=== PATIENT | male | born 1960 | race African-American/Black ===

== ENCOUNTER 2017-03-08 16:21 | Inpatient (IN) ==
--- NOTE | 2017-03-08 16:55 | PROVIDER DOCUMENTATION ---
HPI-Rash/Wound/ReCheck - General Chief Complaint: Abscess Stated Complaint: poss abscess Time Seen by Provider: 03/08/17 16:46 Source: patient, family Allergies/Adverse Reactions: Allergies Allergy/AdvReac Type Severity Reaction Status Date / Time No Known Allergies Allergy Verified 03/08/17 16:47 Home Medications: Home Medication List Medication Instructions Recorded Confirmed Last Taken Type Naproxen 500 mg PO BID PRN #60 tablet 04/29/15 03/08/17 Unknown Rx Cyclobenzaprine [Flexeril] 10 mg PO TID PRN PRN #20 tablet 02/26/17 03/08/17 07:00 Rx Adalimumab [Humira Pen] 40 mg IM DIRECTED 02/28/17 03/08/17 02/20/17 15:00 History Allopurinol [Allopurinol] 100 mg PO DAILY 02/28/17 03/08/17 02/28/17 07:00 History Clonidine HCl [Clonidine HCl] 0.1 mg PO DAILY 02/28/17 03/08/17 02/28/17 07:00 History Famotidine [Pepcid] 20 mg PO DAILY #20 tablet 02/28/17 03/08/17 Unknown Rx Gabapentin [Gabapentin] 300 mg PO HS 02/28/17 03/08/17 02/27/17 20:00 History Lisinopril/Hydrochlorothiazide 1 tab PO DAILY 02/28/17 03/08/17 02/28/17 07:00 History [Lisinopril-Hctz 20-25 mg Tab] Methocarbamol [Robaxin] 500 mg PO BID #30 tablet 02/28/17 03/08/17 Unknown Rx Oxycodone HCl/Acetaminophen 1 each PO TID 02/28/17 03/08/17 02/28/17 12:00 History [Oxycodone-Acetaminophen 10-325] - History of Present Illness-Dermatology Nature of Presenting Problem: 56 year old AAM presents with shortness of breath, weakness and mass to left upper chest, lateral to the sternum and just distal to the clavicle. pt has been evaluted for same twice in the last week. pt reported on initial visit he dropped the garage door on his chest, scond visit he reports a lawn telecommunicator fell on his chest. pt was instructed to follow up with PMD/surgery and has no done so. pt presents with nieces who help care for him. they report he is unsteady o ghis feet, has not been eating, losing weight and today they noticed his eyes are yellow. pt reports the shortness of breath has been going on for 1 week along with the weakness and development of this mass on his left anterior chest. pt has increased respiratory rate at 24 during H&P, appears dry, lips cracked. pt has psoriasis to hands, feet, knee and wrists. additionally pt reports swelling to the LLE, greater than the right. pt is slow to respond to questions. Location: reports: chest Quality: reports: painful Severity: reports: mild Onset/Duration: reports: 1 week ago Timing: reports: still present, constant, getting worse Context/Associated Symptoms: reports: unknown bite/sting, tender area, other ( trauma) Identifiable cause?: No Exposure: reports: unknown cause Similar Symptoms Previously?: Yes Recently seen or treated by another doctor?: Yes Review of Systems - Adult - REVIEW OF SYSTEMS - ADULT Constitutional: reports: see HPI, fatique Eyes: reports: no symptoms reported, other (jaundice) Ears, Nose, Mouth & Throat: reports: no symptoms reported. denies: ear discharge, ear pain, nose pain, loose teeth, throat pain, throat swelling Cardiovascular: reports: no symptoms reported. denies: chest pain, palpitations , syncope Respiratory: reports: see HPI, dyspnea on exertion, shortness of breath. denies : chronic cough, cough Gastrointestinal: reports: see HPI, poor appetite. denies: abdominal pain, diarrhea, nausea, vomiting Genitourinary: reports: no symptoms reported. denies: dysuria, hematuria, urgency Musculoskeletal: reports: no symptoms reported. denies: bone pain, joint pain, joint swelling, neck pain Integumentary: reports: see HPI, skin sores/ulcer. denies: hives, itching Neurological: reports: no symptoms reported. denies: ataxia, dizziness/vertigo Psychiatric: reports: no symptoms reported Endocrine: reports: no symptoms reported Hematologic/Lymphatic: reports: no symptoms reported Allergic/Immunologic: reports: no symptoms reported All Other Systems: Reviewed and Negative Past History - Adult - PAST MEDICAL HISTORY-ADULT Review of Records: reports: Old Records Reviewed, Nursing Assessment Review, Medications Reviewed, Social history reviewed & non-contributory. Major Childhood Illnesses: reports: denies history Cardiovascular: reports: HTN Respiratory: reports: asthma Gastrointestinal: reports: other (HEP C) Obstetrical/Gynecological: reports: denies history Genitourinary: reports: denies history Musculoskeletal: reports: chronic pain Neurological: reports: denies history Endocrine/Immune: reports: denies history Other Conditions: reports: denies history - IMMUNIZATION STATUS Childhood Immunizations: See Nurse Assessment Flu Vaccine: See Nurse Assessment - FAMILY HISTORY Family History: reviewed, not pertinent - SOCIAL HISTORY Smoking: cigarettes Provider spent 3-5 mins advising pt. on dangers of tobacco.: Discussed manners to quit use, and f/u contacts for add'l counseling. Substance Use: none presently/history of abuse Alcohol Use Frequency: sober (former use) Physical Exam-General - PHYSICAL EXAM-ADULT Initial Vital Signs Reviewed: Yes - CONSTITUTIONAL General Appearance: appears well, alert, mild distress, cachetic, thin, lethargic, slow to respond. negative: no apparent distress, moderate distress - EYES Eyes: pale conjunctivae, scleral icterus - HEAD, EARS, NOSE, MOUTH & THROAT HENMT: normocephalic/atraumatic, moist mucous membranes, normal ENT inspection, TMs normal, other (dry lips, tongue, furroughed mouth). negative: pharynx normal - NECK Neck: non-tender, full range of motion, supple, normal inspection. negative: C- spine tenderness, limited range of motion, meningismus, tender lateral, tender midline - RESPIRATORY Respiratory: chest non-tender, lungs clear, normal breath sounds, no pleuratic chest pain, no respiratory distress, no accessory muscle use, increased rate. negative: respiratory distress, decreased breath sounds, accessory muscle use, crackles, rales, rhonchi, stridor, wheezing - CARDIOVASCULAR Cardiovascular: normal peripheral pulses, regular rate, rhythm, tachycardia. negative: diastolic murmur, systolic murmur - CHEST (BREASTS) Chest/Breast: mass/lump noted (6cm by 6cm raised area of erythema; non-pulsatile ; tender to palpation.) - GASTROINTESTINAL (ABDOMEN) Abdominal Exam: normal bowel sounds, non tender, soft. negative: distended, guarding, rigid, tenderness, hepatomegaly, spleenomegaly - LYMPHATIC Lymphatic: no adenopathy - MUSCULOSKELETAL Back Exam: normal inspection, no CVA tenderness, no vertebral tenderness. negative: CVA tenderness, decreased range of motion, swelling, vertebral tenderness Extremity: normal range of motion, normal gait, pelvis stable, calf tenderness, erythema, inflammation, pedal edema (left greater than right), swelling, tenderness. negative: non-tender, normal inspection, no calf tenderness, abnormal NV exam, pulse deficit Peripheral Pulses: radial (R): 2+, radial (L): 2+, 3+, dorsalis-pedis (R): 1+, dorsalis-pedis (L): 1+ - SKIN Integumentary: warm/dry, jaundice, rash, swelling, tenderness, other (psoriatic rash to feet, hands, knees, large silver colored plaques) - NEUROLOGIC Neurologic: grossly normal, no motor/sensory deficits - PSYCHIATRIC Psych/Mental Status: normal mood/affect, normal thought content, normal thought process, oriented x 3, disheveled Progress - PLAN OF CARE/RESULTS Progress/Plan/Lab Results: Vital Signs - 8 hr 03/08/17 16:24 Temperature 98.0 F Pulse Rate 111 H Respiratory Rate 20 Blood Pressure 115/66 O2 Sat by Pulse Oximetry 98 Laboratory Results - last 24 hr 03/08/17 03/08/17 03/08/17 17:00 17:00 17:00 WBC 20.67 H RBC 4.40 L Hgb 13.9 L Hct 37.6 L MCV 85.5 MCH 31.6 H MCHC 37.0 RDW Std Deviation 14.3 Plt Count 113 L MPV 10.8 H Immature Gran % (Auto) 1.0 H Neut % (Auto) 78.9 H Lymph % (Auto) 11.0 L [place] % (Auto) 8.4 Eos % (Auto) 0.2 Baso % (Auto) 0.5 Immature Gran # (Auto) 0.21 H Neut # (Auto) 16.31 H Lymph # (Auto) 2.28 [place] # (Auto) 1.73 H Eos # (Auto) 0.04 Baso # (Auto) 0.10 PT INR PTT (Actin FS) D-Dimer Sodium 136 Potassium 6.1 H* Chloride 101 Carbon Dioxide 18 L Anion Gap 17 BUN 106 H Creatinine 4.7 H Estimated GFR/1.73 m2 16 BUN/Creatinine Ratio 23 Glucose 67 L Calculated Osmolality 304 Calcium 8.7 L Total Bilirubin 16.94 H AST 213 H ALT 75 H Alkaline Phosphatase 215 H Ammonia Creatine Kinase 87 Troponin T Vvd-J-Deqstombncl Pept Total Protein 8.2 Albumin 2.2 L Globulin 6.0 Albumin/Globulin Ratio 0.4 Plasma Lactate Plasma/Serum Ethyl Alc 03/08/17 03/08/17 03/08/17 17:00 17:00 17:00 WBC RBC Hgb Hct MCV MCH MCHC RDW Std Deviation Plt Count MPV Immature Gran % (Auto) Neut % (Auto) Lymph % (Auto) [place] % (Auto) Eos % (Auto) Baso % (Auto) Immature Gran # (Auto) Neut # (Auto) Lymph # (Auto) [place] # (Auto) Eos # (Auto) Baso # (Auto) PT 15.4 H INR 1.43 PTT (Actin FS) 43.6 H D-Dimer Sodium Potassium Chloride Carbon Dioxide Anion Gap BUN Creatinine Estimated GFR/1.73 m2 BUN/Creatinine Ratio Glucose Calculated Osmolality Calcium Total Bilirubin AST ALT Alkaline Phosphatase Ammonia Creatine Kinase Troponin T 0.020 Quf-Z-Pzvskbtvyev Pept Total Protein Albumin Globulin Albumin/Globulin Ratio Plasma Lactate 3.3 H Plasma/Serum Ethyl Alc 03/08/17 03/08/17 03/08/17 17:00 17:00 17:00 WBC RBC Hgb Hct MCV MCH MCHC RDW Std Deviation Plt Count MPV Immature Gran % (Auto) Neut % (Auto) Lymph % (Auto) [place] % (Auto) Eos % (Auto) Baso % (Auto) Immature Gran # (Auto) Neut # (Auto) Lymph # (Auto) [place] # (Auto) Eos # (Auto) Baso # (Auto) PT INR PTT (Actin FS) D-Dimer 7.23 H Sodium Potassium Chloride Carbon Dioxide Anion Gap BUN Creatinine Estimated GFR/1.73 m2 BUN/Creatinine Ratio Glucose Calculated Osmolality Calcium Total Bilirubin AST ALT Alkaline Phosphatase Ammonia 85 H Creatine Kinase Troponin T Nqf-Z-Nhkqhbyzldb Pept 514 H Total Protein Albumin Globulin Albumin/Globulin Ratio Plasma Lactate Plasma/Serum Ethyl Alc Orders Category Date Time Status Cardiac Monitoring DIRECTED Care 03/08/17 17:00 Active FSBS [Finger Stick Blood Sugar (ED)] DIRECTED Care 03/08/17 19:00 Active Finger Stick Blood Sugar (ED) DIRECTED Care 03/08/17 17:00 Active Saline Loc NOW Care 03/08/17 17:00 Active Saline Loc NOW Care 03/08/17 17:[address] THORAX W/O CONTRAST [CT] Stat Exams 03/08/17 18:15 Completed FLAT/UPRIGHT ABD/1 VIEW CHEST [RAD] Stat Exams 03/08/17 17:02 Completed HEAD W/O CONTRAST [CT] Stat Exams 03/08/17 17:02 Completed NECK W/O CONTRAST [CT] Stat Exams 03/08/17 18:15 Completed ALCOHOL BLOOD Stat Lab 03/08/17 17:00 Completed AMMONIA [CHEM] Stat Lab 03/08/17 17:00 Completed BLOOD CULTURE [BLDCUL] Stat Lab 03/08/17 17:25 Results BNP [PRO B-NATRIURETIC PEPTIDE] Stat Lab 03/08/17 17:00 Completed CBC WITH ELECTRONIC DIFF [HEME] Stat Lab 03/08/17 17:00 Completed CK PROFILE [SP CHEM] Stat Lab 03/08/17 17:00 Completed COMPREHENSIVE METABOLIC PANEL [CHEM] Stat Lab 03/08/17 17:00 Completed Chem7 [BASIC METABOLIC PANEL] [CHEM] Stat Lab 03/08/17 19:05 Ordered D-DIMER [CHEM] Stat Lab 03/08/17 17:00 Completed LACTATE, PLASMA [CHEM] Stat Lab 03/08/17 17:00 Completed PROTIME WITH INR [COAG] Stat Lab 03/08/17 17:00 Completed PTT [COAG] Stat Lab 03/08/17 17:00 Completed TROPONIN T Stat Lab 03/08/17 17:00 Completed URINALYSIS W/POSS RFLX CULT-1 [URINALYSIS] Stat Lab 03/08/17 17:00 Uncollected URINE DRUG SCREEN Stat Lab 03/08/17 17:00 Uncollected 0.9% Sodium Chloride Inj [Ns] 1,000 ml Med 03/08/17 17:56 Discontinued IV 999 mls/hr Dextrose 50% Syringe [D50w Syringe] Med 03/08/17 18:29 Discontinued 50 ml IV NOW ONE Dextrose 50% Syringe [D50w Syringe] Med 03/08/17 19:32 Discontinued 50 ml IV NOW ONE Insulin Human Regular [Humulin R] Med 03/08/17 18:29 Discontinued 10 unit IV NOW ONE Piperacil/Tazobact 3.375 gm/Ns [Zosyn 3.375 gm/Ns] Med 03/08/17 18:19 Discontinued 3.375 gm in 50 ml IV NOW Sodium Polystyrene [Kayexalate] Med 03/08/17 18:28 Discontinued 30 gm CA NOW ONE Vancomycin 1 gm/Ns Med 03/08/17 18:19 Discontinued 1 gm in 250 ml IV NOW Pulse Oximetry Stat Oth 03/08/17 17:00 Active EKG [EKG] Stat Ther 03/08/17 17:00 Ordered Reviewed H&P, labs with Dr. Herrera, agrees with plan of care treatment/ admission. Laboratory Tests 03/08/17 03/08/17 03/08/17 17:00 17:00 17:00 WBC 20.67 H RBC 4.40 L Hgb 13.9 L Hct 37.6 L MCV 85.5 MCH 31.6 H MCHC 37.0 RDW Std Deviation 14.3 Plt Count 113 L MPV 10.8 H Immature Gran % (Auto) 1.0 H Neut % (Auto) 78.9 H Lymph % (Auto) 11.0 L [place] % (Auto) 8.4 Eos % (Auto) 0.2 Baso % (Auto) 0.5 Immature Gran # (Auto) 0.21 H Neut # (Auto) 16.31 H Lymph # (Auto) 2.28 [place] # (Auto) 1.73 H Eos # (Auto) 0.04 Baso # (Auto) 0.10 PT INR PTT (Actin FS) D-Dimer Sodium 136 Potassium 6.1 H* Chloride 101 Carbon Dioxide 18 L Anion Gap 17 BUN 106 H Creatinine 4.7 H Estimated GFR/1.73 m2 16 BUN/Creatinine Ratio 23 Glucose 67 L Calculated Osmolality 304 Calcium 8.7 L Total Bilirubin 16.94 H AST 213 H ALT 75 H Alkaline Phosphatase 215 H Ammonia Creatine Kinase 87 Troponin T Rne-H-Alszebuagyn Pept Total Protein 8.2 Albumin 2.2 L Globulin 6.0 Albumin/Globulin Ratio 0.4 Plasma Lactate Plasma/Serum Ethyl Alc 03/08/17 03/08/17 03/08/17 17:00 17:00 17:00 WBC RBC Hgb Hct MCV MCH MCHC RDW Std Deviation Plt Count MPV Immature Gran % (Auto) Neut % (Auto) Lymph % (Auto) [place] % (Auto) Eos % (Auto) Baso % (Auto) Immature Gran # (Auto) Neut # (Auto) Lymph # (Auto) [place] # (Auto) Eos # (Auto) Baso # (Auto) PT 15.4 H INR 1.43 PTT (Actin FS) 43.6 H D-Dimer Sodium Potassium Chloride Carbon Dioxide Anion Gap BUN Creatinine Estimated GFR/1.73 m2 BUN/Creatinine Ratio Glucose Calculated Osmolality Calcium Total Bilirubin AST ALT Alkaline Phosphatase Ammonia Creatine Kinase Troponin T 0.020 Ahf-Y-Isxnwvzkxjz Pept Total Protein Albumin Globulin Albumin/Globulin Ratio Plasma Lactate 3.3 H Plasma/Serum Ethyl Alc 03/08/17 03/08/17 03/08/17 17:00 17:00 17:00 WBC RBC Hgb Hct MCV MCH MCHC RDW Std Deviation Plt Count MPV Immature Gran % (Auto) Neut % (Auto) Lymph % (Auto) [place] % (Auto) Eos % (Auto) Baso % (Auto) Immature Gran # (Auto) Neut # (Auto) Lymph # (Auto) [place] # (Auto) Eos # (Auto) Baso # (Auto) PT INR PTT (Actin FS) D-Dimer 7.23 H Sodium Potassium Chloride Carbon Dioxide Anion Gap BUN Creatinine Estimated GFR/1.73 m2 BUN/Creatinine Ratio Glucose Calculated Osmolality Calcium Total Bilirubin AST ALT Alkaline Phosphatase Ammonia 85 H Creatine Kinase Troponin T Xxk-T-Buzfhqbnirt Pept 514 H Total Protein Albumin Globulin Albumin/Globulin Ratio Plasma Lactate Plasma/Serum Ethyl Alc Orders Category Date Time Status Cardiac Monitoring DIRECTED Care 03/08/17 17:00 Active FSBS [Finger Stick Blood Sugar (ED)] DIRECTED Care 03/08/17 19:00 Active Finger Stick Blood Sugar (ED) DIRECTED Care 03/08/17 17:00 Active Saline Loc NOW Care 03/08/17 17:00 Active Saline Loc NOW Care 03/08/17 17:[address] THORAX W/O CONTRAST [CT] Stat Exams 03/08/17 18:15 Completed FLAT/UPRIGHT ABD/1 VIEW CHEST [RAD] Stat Exams 03/08/17 17:02 Completed HEAD W/O CONTRAST [CT] Stat Exams 03/08/17 17:02 Completed NECK W/O CONTRAST [CT] Stat Exams 03/08/17 18:15 Completed ALCOHOL BLOOD Stat Lab 03/08/17 17:00 Completed AMMONIA [CHEM] Stat Lab 03/08/17 17:00 Completed BLOOD CULTURE [BLDCUL] Stat Lab 03/08/17 17:25 Results BNP [PRO B-NATRIURETIC PEPTIDE] Stat Lab 03/08/17 17:00 Completed CBC WITH ELECTRONIC DIFF [HEME] Stat Lab 03/08/17 17:00 Completed CK PROFILE [SP CHEM] Stat Lab 03/08/17 17:00 Completed COMPREHENSIVE METABOLIC PANEL [CHEM] Stat Lab 03/08/17 17:00 Completed Chem7 [BASIC METABOLIC PANEL] [CHEM] Stat Lab 03/08/17 19:00 Uncollected D-DIMER [CHEM] Stat Lab 03/08/17 17:00 Completed LACTATE, PLASMA [CHEM] Stat Lab 03/08/17 17:00 Completed PROTIME WITH INR [COAG] Stat Lab 03/08/17 17:00 Completed PTT [COAG] Stat Lab 03/08/17 17:00 Completed TROPONIN T Stat Lab 03/08/17 17:00 Completed URINALYSIS W/POSS RFLX CULT-1 [URINALYSIS] Stat Lab 03/08/17 17:00 Uncollected URINE DRUG SCREEN Stat Lab 03/08/17 17:00 Uncollected 0.9% Sodium Chloride Inj [Ns] 1,000 ml Med 03/08/17 17:56 Discontinued IV 999 mls/hr Dextrose 50% Syringe [D50w Syringe] Med 03/08/17 18:29 Discontinued 50 ml IV NOW ONE Insulin Human Regular [Humulin R] Med 03/08/17 18:29 Discontinued 10 unit IV NOW ONE Piperacil/Tazobact 3.375 gm/Ns [Zosyn 3.375 gm/Ns] Med 03/08/17 18:19 Discontinued 3.375 gm in 50 ml IV NOW Sodium Polystyrene [Kayexalate] Med 03/08/17 18:28 Discontinued 30 gm CA NOW ONE Vancomycin 1 gm/Ns Med 03/08/17 18:19 Active 1 gm in 250 ml IV NOW Pulse Oximetry Stat Oth 03/08/17 17:00 Active EKG [EKG] Stat Ther 03/08/17 17:00 Ordered Vital Signs - 24 hr 03/08/17 16:24 Temperature 98.0 F Pulse Rate 111 H Respiratory Rate 20 Blood Pressure 115/66 O2 Sat by Pulse Oximetry 98 Reviewed radiology, labs, H&P with Dr. Herrera, agrees with plan of care, treatment, admission. Result Diagrams: 03/08/17 17:00 03/08/17 17:00 - XRAY 1 XRAY Study: Chest, Abdomen Impression: Abnormal (GAstric outlet obstruction or gastroparesis. per Dr. Hurley) - CT/MRI 1 CT Study: Head Impression: Abnormal (minimicrovascular white mater change. no evidence of acute disease. per Dr. Hurley) 2 CT Study: Thorax Impression: Abnormal (left supraclavicular mass with internalk gas bubbles, The differential diagnosis would include a suncutaneous abscess, suppurating node, or nectrotic neoplasm.) 3 CT Study: Neck Impression: Normal (no significant abnormality in the neck. per Dr. Hurley) - CONSULTS/PCP/HOSPITALIST Notification #1 *Consult/PCP/Hospitalist*: Dr. Lucio Time Discussed: 18:55 Reason/Comments: accepted pt, will have the hourly shift see patient Consult Disposition: Will see in ED, Admit #2 Consult: Dr. Joaquin Time Discussed: 19:07 Consult Disposition: other (will evaluate pt in the ICU.) #3 Consult: Dr. Orozco Time Discussed: 19:38 (at bedside) Departure - Departure Date of Disposition Decision: 03/08/17 Time of Disposition Decision: 18:30 DIAGNOSIS: Abscess, Hyperkalemia Sepsis Qualifiers: Sepsis type: sepsis due to unspecified organism Qualified Code(s): A41.9 - Sepsis, unspecified organism ARF (acute renal failure) Qualifiers: Acute renal failure type: unspecified Qualified Code(s): N17.9 - Acute kidney failure, unspecified Disposition: ADMITTED INPATIENT 09 Certified Medical Emergency: Emergent Condition: Stable Referrals and Follow-Ups: Tyrell Dang MD [Primary Care Provider] - - Critical Care Note This patient required my direct & personal management of CC.: No Attestation - Physician/ MARIAM Attestation Patient care was provided by Advanced Practice Provider:: Yes Advanced Practice Provider:: Dc Curran Advanced Practice Provider documentation review:: The Mid-level provider documentation, treatment plan and medical decision making was reviewed by the physician who agrees with all treatment and medical decision making by the MLP.
[2017-03-08 17:40] LABS: BASO% 0.5 % (0.0-0.8); EOS# 0.04 X1000 (0.0-0.7); EOS% 0.2 % (0.0-10.0); HEMATOCRIT 37.6 % (42.0-52.0); HEMOGLOBIN 13.9 g/dL (14.0-18.0); IMM GRAN# 0.21 X1000 (0.0-0.04); LYMPH# 2.28 X1000 (1.2-3.4); MANUAL DIFF NEEDED? NO; MCH 31.6 PG (27-31); MCV 85.5 FL (81-99); MONO# 1.73 X1000 (0.11-0.59); MONO% 8.4 % (1.7-9.3); MPV 10.8 FL (7.4-10.4); NEUT% 78.9 % (42.2-75.2); PLT 113 X1000 (130-400)
[2017-03-08 17:44] LABS: INR 1.43; PROTIME 15.4 Seconds (9.2-11.7)
[2017-03-08 17:48] LABS: PTT 43.6 Seconds (22.0-36.0)
[2017-03-08] MEDS ORDERED: NS 1,000 ML IV ONE (17:56)
[2017-03-08 18:13] LABS: ALBUMIN 2.2 g/dL (3.5-5.0); CALCIUM 8.7 mg/dL (8.8-10.2); TOTAL BILIRUBIN 16.94 mg/dL (0.20-1.00); TOTAL PROTEIN 8.2 g/dL (6.3-8.3)
[2017-03-08 18:14] LABS: POTASSIUM 6.1 mmol/L (3.5-5.1)
[2017-03-08] MEDS ORDERED: ZOSYN 3.375 GM/NS 3.375 GM/50 ML IVPB IV ONE (18:19)
[2017-03-08] MEDS ORDERED: VANCOMYCIN 1 GM/NS 1 GM/250 ML IVPB IV ONE (18:19)
--- NOTE | 2017-03-08 18:25 | Diag Imaging Result Doc PS360 ---
EXAM: HEAD W/O CONTRAST HISTORY: confusion TECHNIQUE: CT of the head without contrast with dose reduction (clarity.) COMMENT: There is no evidence of mass effect bleed or abnormal extra-axial fluid collection. There is minimal subcortical white matter lucency in the left parietal convexity. There are no previous studies available for comparison. The calvarium is intact. IMPRESSION: Minimal microvascular white matter change. No evidence of acute disease. Electronically signed by Triston Hurley 03/08/2017 6:23 PM
[2017-03-08] MEDS ORDERED: KAYEXALATE PR ONE (18:28)
[2017-03-08] MEDS ORDERED: D50W SYRINGE IV ONE ×2 (18:29→19:32)
[2017-03-08] MEDS ORDERED: HUMULIN R IV ONE (18:29)
--- NOTE | 2017-03-08 18:37 | Diag Imaging Result Doc PS360 ---
EXAM: FLAT/UPRIGHT ABD/1 VIEW CHEST HISTORY: shortness of breath TECHNIQUE: AP upright chest and flat and upright abdomen three views COMMENT: The stomach is distended with retained food and fluid. The small bowel and colon are not particularly distended although there is some gas in the ascending colon. There is no evidence of organomegaly or mass otherwise. CHEST: The inspiration is markedly suboptimal. Considering this, there is probably no acute abnormality although the study is really nondiagnostic. IMPRESSION: Gastric outlet obstruction or gastroparesis. Electronically signed by Triston Hurley 03/08/2017 6:35 PM
--- NOTE | 2017-03-08 18:44 | Diag Imaging Result Doc PS360 ---
EXAM: NECK W/O CONTRAST HISTORY: Mass on L clavicle, renal failure, septic TECHNIQUE: CT of the neck without contrast COMMENT: The patient is rotated to the left. The nasopharynx is unremarkable in appearance. There is no evidence of significant adenopathy. The salivary glands are symmetrical in appearance. The oropharynx and hypopharynx are unremarkable. The epiglottis is not enlarged. The larynx is within normal limits. IMPRESSION: No significant abnormality in the neck. Electronically signed by Triston Hurley 03/08/2017 6:41 PM
--- NOTE | 2017-03-08 18:48 | Diag Imaging Result Doc PS360 ---
EXAM: CT THORAX W/O CONTRAST HISTORY: mass on L clavicle, renal failure, septic TECHNIQUE: CT of the chest without contrast with dose reduction (clarity.) COMMENT: There is a subcutaneous mass present below the level of the thyroid gland in the left supraclavicular or periclavicular region. This extends from about level of image 18 two the sternoclavicular joint on the left. Some air bubbles are seen within this abnormality. It measures 4.8 cm in transverse dimension. There is some fluid in the esophagus. There is no evidence of significant hilar or mediastinal adenopathy. There is a tiny right pleural effusion. There is some emphysematous change in the right apex. There is no evidence of focal pulmonary opacity. There are calcifications in the spleen. No definite erosions are present in the distal left clavicle or manubrium however the possibility of of involvement of the joint space by infection cannot be entirely excluded. IMPRESSION: Left supraclavicular mass with internal gas bubbles. The differential diagnosis would include a subcutaneous abscess, suppurating node, or necrotic neoplasm. Electronically signed by Triston Hurley 03/08/2017 6:46 PM
[2017-03-08 20:30] LABS: URINE MICRO REVIEW NEEDED? NO; URINE SOURCE CATH
[2017-03-08 20:35] LABS: BILIRUBIN URINE MODERATE (NEGATIVE); BLOOD URINE SMALL (NEGATIVE); COLOR YELLOW; GLUCOSE URINE NEGATIVE (NEGATIVE); LEUKOCYTES URINE NEGATIVE (NEGATIVE); NITRITE URINE POSITIVE (NEGATIVE); PROTEIN URINE TRACE mg/dL (NEGATIVE); SP GRAVITY URINE 1.016; TURBIDITY URINE HAZY (CLEAR); UR EPITHELIAL CELLS <10 /HPF (<10); URINE BACTERIA 4+ /HPF; URINE CULTURE NEEDED? YES; URINE RBC 20-40 /HPF (<10); URINE WBC <10 /HPF (<10); UROBILINOGEN URINE 2 mg/dL (NORMAL)
[2017-03-08 20:58] LABS: UR AMPHETAMINES QUAL NONE DETECTED (NONE DETECT); UR BARBITUATES QUAL NONE DETECTED (NONE DETECT); UR BENZODIAZEPIN QUAL NONE DETECTED (NONE DETECT); UR CANNABINOIDS QUAL NONE DETECTED (NONE DETECT); UR COCAINE QUAL NONE DETECTED (NONE DETECT); UR METHADONE QUAL NONE DETECTED (NONE DETECT); UR OPIATES QUAL NONE DETECTED (NONE DETECT); UR OXYCODONE QUAL PRESUMPTIVE POSITIVE (NONE DETECT); UR PCP QUAL NONE DETECTED (NONE DETECT)
[2017-03-08] MEDS ORDERED: ZOFRAN IV PRN (22:28)
[2017-03-08] MEDS ORDERED: PERCOCET-10 PO PRN (22:28)
[2017-03-08] MEDS ORDERED: NS 1,000 ML IV SCH (22:28)
[2017-03-08] MEDS ORDERED: VANCOMYCIN IV PER PHARMACY MISC SCH (22:28)
[2017-03-08 22:40] LABS: POTASSIUM 5.5 mmol/L (3.5-5.1)
[2017-03-08] MEDS: HEPARIN SUBQ SCH (23:48)
--- NOTE | 2017-03-08 23:53 | HISTORY AND PHYSICAL ---
REASON FOR ADMISSION: Two-week history of progressively enlarging left supraclavicular swelling. HISTORY OF PRESENT ILLNESS: Mr. Vaughn Moralez is a 56-year-old male with longstanding history of hepatitis C, gout, hypertension, psoriasis for which he receives Humira. His last dose was in the last 1 month. He reports that he developed slowly increasing swelling at the sternoclavicular joint area. He says it is very tender to touch and it is warm to touch. He has been to the ER on 3 separate occasions over the last 10 days and has been given pain medication and muscle relaxant, and I believe he was scheduled to follow up with a general surgeon, but did not. He comes in today because he is now having systemic complaints of diffuse arthralgias, poor appetite, fever, chills. He lives alone and his family paid him a visit today and saw that he had lost weight and he looked acutely ill and they decided to bring him in. They also noted that his sensorium was somewhat diminished. The patient comes in today. Patient denies any trauma to the said area or insect bite. He says the swelling is not pulsatile or throbbing in nature. He denies any cough or any cardiorespiratory complaints related to this. No hemoptysis. No oral or dental issues. No GI or complaints. No new neurological complaints. He says his urine output has been adequate and he denies any diarrhea or vomiting. He does admit to using lots amounts of Aleve over the last 1 week to control the pain. REVIEW OF SYSTEMS: Twelve system review is unremarkable, although patient is a little drowsy so history was not very reliable. Positive findings are noted above. He also admits that the pain is actually worse on the left side when he tries to abduct his shoulder. ALLERGIES: No known allergies. MEDICATIONS: He is on Humira as needed, allopurinol 100 mg daily, clonidine 0.1 mg daily, Flexeril 10 mg t.i.d., Pepcid 20 mg daily, gabapentin 300 mg at bedtime, Prinzide 20/12.5 mg daily, Robaxin 500 mg b.i.d., naproxen 500 mg p.r.n., and Percocet 1 t.i.d. p.r.n. FAMILY HISTORY: No cancer, coronary disease or diabetes in first-degree relatives. SOCIAL HISTORY: Smokes 1 pack a day, lives alone. Does not do alcohol or illicit drug use. SURGICAL HISTORY: He has only had foot surgery. LABORATORY WORK: White count 18310, hemoglobin and hematocrit 13 and 39, platelets 113,000 with 79% neutrophils and no bands. Potassium 6.1, bicarb 18, anion gap 17, BUN is 106, creatinine 4.7, glucose 67, total bilirubin is 16.9. This is up from 2.4. His creatinine was 1.4 in September and is now 4.7. Total AST is 213, ALT is 75. This bates a triple increase in his LFTs done in September. Ammonia 85. CK is 87, troponin 0.20, proBNP 515, lactate 3.3. INR is 1.4. D-dimer 7.23, PT 15. Alcohol level is undetected. Of note, x-ray done. They said possible gastroparesis due to distended stomach. CT of the chest shows a left supraclavicular mass with gas bubbles which could include a subcutaneous abscess or suppurating node or necrotic neoplasm. Head CT and neck CT were normal. PHYSICAL EXAMINATION: GENERAL: Chronically and acutely ill man who is very lethargic, will answer questions appropriately. He is thin somewhat anorexic looking. VITAL SIGNS: Blood pressure is 115/60, heart rate 111, respirations 20, temperature is 98 degrees, he is 98% on room air. HEENT: Head is normocephalic, atraumatic. Eyes, he is profoundly icteric and pale. Pupils are equal, round, and reactive. Extraocular movements are intact. ENT and oropharynx exam grossly normal. There is no cyanosis. NECK: Supple. No JVD or carotid bruit. No thyromegaly. No lymphadenopathy appreciated most especially in the supraclavicular, cervical and axillary areas. There is a 3 x 3 cm swelling at the left sternoclavicular joint area it is tense and firm. It is poor warm to touch. There is no erythema on it or around it. No bruit heard. It is not very mobile to the underlying structures, nor am I able to pick the skin overlying it. It is tender to touch. CHEST: Clear to auscultation with good air entry in both lung rag[place]. CARDIOVASCULAR: First and sounds heard. No gallops, murmurs, rubs. Rhythm is regular. ABDOMEN: Scaphoid, soft. No focal areas of tenderness. No mass or organomegaly. Bowel sounds are hypoactive at this time. EXTREMITIES: No edema, clubbing or peripheral cyanosis. He has chronic psoriasiform lesions on the dorsum and plantar surface of both feet. He has psoriasiform lesions on his elbows and his knees. He has psoriasiform lesions and sausage-like digits of his fingers distally, more especially the dorsum of both hands. Pulses are intact with good volume. NEUROLOGICAL: No focal deficits appreciated. No asterixis or myoclonus visualized. SKIN: See above but otherwise elsewhere no notable findings. Muscular exam is grossly normal otherwise. ASSESSMENT: 1. Septicemia probably form presumed supraclavicular abscess. 2. Acute kidney injury from poor oral intake, use of PETER inhibitors and nonsteroidal anti- inflammatory drugs, probably causing acute tubular necrosis triggered by prerenal renal failure. 3. Worsening liver function. This could be due to hepatic insufficiency from poor blood flow and hypotension. However cannot rule out underlying effects of medications causing this. 4. Hepatitis C, consider progression of disease. 5. Psoriasis. 6. Gout. PLAN: At this time, the patient will be admitted to the ICU due to his critical state. We will start patient on broad-spectrum antibiotics pending cultures. Correct hyperkalemia. His EKG does show normal sinus rhythm with no ST changes consistent with ischemia and no peaked T-waves with hyperkalemia. He has been given dextrose and insulin at this point, and we will recheck. We will get abdominal sonogram to review patient's liver architecture. Will do renal indices and will also review kidney function too. Consult Nephrology, consult Infectious Disease. My biggest concern for this patient is AIDS. Since he has been exposed to Humira, this could rapidly progress and cause him severe morbidity if not mortality. This is due to his immunocompromised state. Also I am concerned that the lesion there is close to a vascular structure so this could be an aneurysm or could be a mass of a neoplastic origin which may have been superinfected. No primary has been visible, although I would recommend doing a CT abdomen of the pelvis due to the fact he has some degree of gastroparesis to ensure that this is not a primary from the gastrointestinal tract, especially since this area is a known area for metastasis from the GI tract, i.e. the Virchow's node. We will start patient on a bicarb drip and continue IV fluid resuscitative efforts at this point in time. DVT prophylaxis with heparin, although even though platelet count is somewhat on the low side. We will monitor this closely. INR is high from the underlying liver disease although people with liver disease still have normal factor VIII levels so this could not be true reflection of his coagulopathy. The patient may even be thrombotic despite his elevated INR. Also patient's lactate should be carefully interpreted in the face of renal failure and liver disease as the liver is the main source of clearing lactate so it could give a falsely elevated level. However I do suspect this patient is septic. TIME SPENT: Critical care time on this patient was 40 minutes. cc: MD Last Greer MD
[2017-03-08] MEDS: MERREM 500 MG in NS 50 ML IV SCH (23:56)
[2017-03-08] MEDS: SODIUM BICARBONATE 8.4% 100 MEQ in D5W 1,000 ML IV SCH (23:57)
[2017-03-09] MEDS: DILAUDID IV PRN ×4 (00:21→23:04)
[2017-03-09 00:43] LABS: UR CREAT RANDOM 122.3 mg/dL (14-26)
[2017-03-09 07:41] LABS: INR 1.55; PROTIME 16.7 Seconds (9.2-11.7)
[2017-03-09 07:44] LABS: BASO% 0.5 % (0.0-0.8); EOS# 0.21 X1000 (0.0-0.7); EOS% 1.1 % (0.0-10.0); HEMATOCRIT 33.9 % (42.0-52.0); HEMOGLOBIN 12.7 g/dL (14.0-18.0); IMM GRAN# 0.16 X1000 (0.0-0.04); IMM GRAN% 0.9 % (0.0-0.5); LYMPH# 2.22 X1000 (1.2-3.4); LYMPH% 12.1 % (20.5-51.1); MANUAL DIFF NEEDED? YES; MCH 32.1 PG (27-31); MCHC 37.5 g/dL (33-37); MCV 85.6 FL (81-99); MONO# 1.96 X1000 (0.11-0.59); MONO% 10.7 % (1.7-9.3); MPV 10.5 FL (7.4-10.4); NEUT% 74.7 % (42.2-75.2); PLT 82 X1000 (130-400); RBC 3.96 XMIL (4.7-6.1)
[2017-03-09] MEDS: SODIUM BICARBONATE 8.4% 100 MEQ in D5W 1,000 ML IV SCH (07:45)
[2017-03-09] MEDS: MERREM 500 MG in NS 50 ML IV SCH ×2 (07:49→15:30)
[2017-03-09 08:05] LABS: ALBUMIN 1.8 g/dL (3.5-5.0); CALCIUM 7.9 mg/dL (8.8-10.2); POTASSIUM 4.7 mmol/L (3.5-5.1); TOTAL BILIRUBIN 14.84 mg/dL (0.20-1.00); TOTAL PROTEIN 7.1 g/dL (6.3-8.3)
[2017-03-09 08:09] LABS: BANDS 6 % (0-1); LYMPHS 14 % (21-51); MONO 12 % (1-9)
--- NOTE | 2017-03-09 11:03 | PROGRESS NOTE ---
DATE: 03/09/2017 SUBJECTIVE: Today, Mr. Moralez is here in the ICU. Was admitted overnight. He is not actually able to give his history because of some altered mentation. A sister who has been there refers that they have not seen Mr. Moralez for about 2 weeks now. The daughter who called them to go and see Mr. Moralez was because he has been progressively getting weak and has not been himself. He presented yesterday, was evaluated, found to be in sepsis, and was admitted to the ICU. Today, he seems to be a little better. He is able to respond to some basic questioning. He says he is feeling fine but then he immediately goes to sleep. OBJECTIVE: Vital Signs: Blood pressure is 128/77, pulse of 90, respirations are 16, temperature is 97.8 degrees. General Examination: Mr. Moralez is a 56-year-old, male. He is in bed, does not seems to be in any remarkable distress. HEENT: Mucosa is pink and moist. Anicteric. Acyanotic. Neck: Supple. No JVD. Chest: Air entry is bilaterally reduced. I did not hear any crepitations or rhonchi. Cardiovascular: Regular rate and rhythm. Abdomen: Soft, nontender. Extremities: No pedal edema. The left leg has changes consistent with stasis dermatitis. Skin: The patient has old erythematous, scaly lesions on both feet, the knees, elbows, and hands. 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 He will answer some basic yes or no questions. He is protecting well his airway. He is able to move all extremities upon command. Laboratory Data: WBC is 18.32, hemoglobin is 12.7, platelet count of 82,000. There are 6% of bands on the peripheral smear. Chemistry: Sodium is 136, potassium is 4.7, chloride is 104, bicarb is 22, creatinine is down to 3.2, BUN is also down to 98 from 106. AST is 173, ALT is 64, alkaline phosphatase is 186. Diagnostic Studies: A CT scan of the chest shows a left supraclavicular mass with internal gas bubble. An CT scan of the neck is unremarkable. A head CT scan shows minimal microvascular white matter changes. No evidence of acute disease. An x-ray of the abdomen shows the stomach is distended with retained food and fluid. Gastric outlet obstruction or gastroparesis is suggested. Presenting lactate was 3.3. Urinalysis has been reviewed. The blood culture shows 2 out of 2 gram positive cocci. The culture from the chest also shows gram-positive cocci, a few white cells. ASSESSMENT: 1. Severe sepsis, likely secondary to left supraclavicular skin and soft tissue infection. 2. Gram positive cocci bacteremia, likely from the skin infection. 3. Left upper supraclavicular mass is growing gram-positive cocci. It has internal gas bubble. I think this is a subcutaneous abscess. It does not feel very fluctuant. It feels somewhat hard. Surgery is pending to evaluate the patient. 4. Acute kidney injury. This seems to be improving. We will continue with the current intravenous fluids. However, after this current bag of the bicarb infusion, we will change it to normal saline. 5. Sepsis induced hepatopathy noted. 6. Altered mental status, likely due to underlying toxic metabolic encephalopathy from sepsis. 7. Chronic dermatosis, suspicious for psoriasis. PLAN: In general, I think Mr. Moralez is relatively stable but critical. I spoke with the sister and the [id number] who were in the room with him. We are going to continue with the current IV antibiotics including meropenem and vancomycin. Patient is pending to be evaluated by both surgery and ID. If the renal function continues to improve with the current therapy, we would not involve renal but if it gets any worse, we would get them on board. Critical time spent is 45 minutes. cc: Tyrese Burger MD
[2017-03-09] MEDS: NS 1,000 ML IV SCH ×2 (12:28→16:05)
[2017-03-09] MEDS: HEPARIN SUBQ SCH ×2 (12:32→22:55)
--- NOTE | 2017-03-09 15:25 | Diag Imaging Result Doc PS360 ---
EXAM: US ABDOMEN-COMPLETE HISTORY: SHELLEY abn LFTs TECHNIQUE: Transabdominal COMMENT: The pancreas is unremarkable. Liver is unremarkable. The visualized portions of the aorta and inferior vena cava are within normal limits. There is no evidence of biliary dilatation, the common bile duct measuring four mm. There is antegrade flow in the portal vein. There is sediment in the gallbladder without evidence of stones or para cholecystic fluid. The spleen is not enlarged. The kidneys are without evidence of hydronephrosis or mass. There is a 1.6 cm cyst in the right kidney and an 8 mm stone present in the lower pole. IMPRESSION: Right nephrolithiasis. Gallbladder sludge. Electronically signed by Triston Hurley 03/09/2017 3:23 PM
--- NOTE | 2017-03-09 16:19 | CONSULTATION ---
DATE OF CONSULTATION: 03/09/2017 CHIEF COMPLAINT: Subcutaneous mass over the sternoclavicular joint on the left. HISTORY: A 56-year-old black gentleman who presents with a 2-week history of increasing mass effect over the left sternoclavicular joint. CT scan done here shows the mass to be subcutaneous. He has a past history of hepatitis C, gout, hypertension and psoriasis. MEDICATIONS: At home include Humira, allopurinol, clonidine, Flexeril Pepcid, gabapentin, Prinzide, Robaxin, naproxen and Percocet. ALLERGIES: He has no known drug allergies. FAMILY HISTORY: Noncontributory. SOCIAL HISTORY: He does smoke a pack a day. Denies alcohol use. PREVIOUS SURGICAL HISTORY: Includes his foot. REVIEW OF SYSTEMS: As noted above. PHYSICAL EXAMINATION: Vital Signs: He is afebrile, heart rate is 90, blood pressure 128/77. General: He does respond when spoken to. Chest: He has a mass over the sternoclavicular joint on the left. It is mildly tender to palpation. No other adenopathy is noted. He has bilateral breath sounds. Heart: Regular rate, rhythm. Abdomen: Mildly tender. Extremities: He has trace peripheral edema. LABS: White count 18,300 which is improved from yesterday, his BUN is down to 98 from 106, creatinine down to 3.3 from 4.0. LFTs are elevated. ASSESSMENT AND PLAN: Superficial subcutaneous abscess of the left sternoclavicular joint. I did needle this yesterday and gram-positive coccus are showing. The plan will be to I and D this in the operating room on the . I do think that he is adequately covered currently with his vancomycin. I would be surprised if this was the source of all his other illness. His urine culture is pending and may be also a source of sepsis. cc: Stas Joaquin MD
[2017-03-09] MEDS: ZOSYN 2.25 GM/NS 2.25 GM/50 ML IVPB IV SCH (20:34)
--- NOTE | 2017-03-09 21:17 | CONSULTATION ---
DATE OF CONSULTATION: 03/09/2017 CONCLUSION: Patient is admitted to the hospital with a septic left supraclavicular arthritis. Gram positive cocci were seen on Gram stain from an aspirate of the area. I suspect that the most likely organism causing this would be Staphylococcus aureus. Exactly how it got there is somewhat uncertain to me. Most commonly it is caused by hematogenous seeding from another site. The only other places I could see readily where he may have become bacteremic would be from his psoriasis. The infection also would be more likely because the patient is on Humira. The patient's abscess in the sternoclavicular area does have gas within it and thus he may have another organism, such as an anaerobe or a Gram-negative kenneth causing the infection rather than Staph aureus. It is noted, too, that the patient's urine has Gram positive cocci. If this turns out to be the same organism as from the patient's septic arthritis, then possibly the infection came from a urinary tract infection which became bacteremic. Alternatively, there could have been another focus of infection such as the joint and it secondarily involved the kidney. RECOMMENDATIONS: I agree with treating with vancomycin. I have substituted Zosyn for meropenem and I have ordered an echocardiogram. I have ordered an echocardiogram to look for vegetations on the patient's heart valves. DISCUSSION: The patient was unable to provide a history. Two family members were present, but they did not know much about the patient's condition. The source that I used for my history was a review of the information in the computer. The patient has a 2-week history of progressively enlarging left supraclavicular area. He was seen in the emergency room on 3 separate occasions over 10 days and was given pain medication and a muscle relaxant. He was supposed to follow up with a general surgeon, but did not. He was brought in now because of the swelling and also because of fever and a poor appetite. Patient's laboratory Studies thus far show CBC with a white count of 18,320, hemoglobin 12.7, and platelet count 82,000. Creatinine is 3.3. GFR is 24. A Gram stain of the supraclavicular mass showed gram-positive cocci. A culture from the same material is pending. Urine is growing gram positive cocci. There is no mention made of a past surgical history. REVIEW OF SYSTEMS: Unable to obtain. SOCIAL HISTORY: He smokes cigarettes, but does not drink alcoholic beverages or use illicit drugs. ALLERGIES: No known drug allergies. HOME MEDICATIONS: Humira, allopurinol, clonidine, Flexeril, Pepcid, gabapentin, Prinzide, Robaxin, naproxen and Percocet. SURGICAL HISTORY: Only positive for foot surgery. MEDICAL DISEASES: Positive for hepatitis C, gout, hypertension, psoriasis, gastroesophageal reflux disease, hypertension. PHYSICAL EXAMINATION: Vital Signs: Temperature is 98.1 degrees, pulse 94, respirations 12, blood pressure 128/77. The patient weighs 153 pounds. General: This is an ill-appearing middle-aged male who is in no acute distress at this time. Head, eyes, ears, nose and throat: No drainage noted from the nose or ears. The patient's eyes were closed and he did not open his mouth for me to examine. Neck: No meningismus. Thorax: There is a large fluctuant mass involving the right supraclavicular joint area. Lungs: Clear to auscultation. Cardiovascular: Regular heart rate. Abdomen: Soft and nontender. Neurologic: Patient is lethargic. He did not answer questions. He did not follow request to move his extremities. There was no tremor. In general the patient looks malnourished and cachectic. The patient is scheduled for surgery to drain the abscess and possibly resect part of the sternoclavicular joint. Thank you for the consult. cc: Clemente Vivas MD
[2017-03-09] MEDS ORDERED: D50W SYRINGE IV PRN (22:15)
[2017-03-10] MEDS: ZOSYN 2.25 GM/NS 2.25 GM/50 ML IVPB IV SCH ×4 (00:35→11:33)
[2017-03-10] MEDS: NS 1,000 ML IV SCH ×4 (05:52→19:15)
[2017-03-10 06:32] LABS: BASO% 0.4 % (0.0-0.8); EOS# 0.14 X1000 (0.0-0.7); EOS% 0.7 % (0.0-10.0); HEMATOCRIT 33.9 % (42.0-52.0); HEMOGLOBIN 12.4 g/dL (14.0-18.0); IMM GRAN# 0.19 X1000 (0.0-0.04); LYMPH# 2.56 X1000 (1.2-3.4); LYMPH% 13.3 % (20.5-51.1); MANUAL DIFF NEEDED? YES; MCH 31.6 PG (27-31); MCHC 36.6 g/dL (33-37); MCV 86.5 FL (81-99); MONO# 2.12 X1000 (0.11-0.59); MPV 10.6 FL (7.4-10.4); NEUT% 73.6 % (42.2-75.2); PLT 79 X1000 (130-400); RBC 3.92 XMIL (4.7-6.1)
[2017-03-10 07:21] LABS: EOS 1 % (1-10); LYMPHS 21 % (21-51); MONO 11 % (1-9)
[2017-03-10 07:32] LABS: CALCIUM 7.9 mg/dL (8.8-10.2)
[2017-03-10] MEDS: DILAUDID IV PRN ×3 (08:03→19:45)
[2017-03-10] MEDS ORDERED: D50W SYRINGE IV ONE (08:53)
[2017-03-10] MEDS ORDERED: HUMULIN R SUBQ ONE (08:53)
[2017-03-10] MEDS ORDERED: ALBUTEROL 0.5% INH CONC FOR HYPERKALEMIA INH ONE (08:54)
[2017-03-10] MEDS ORDERED: CALCIUM GLUCONATE 1 GM in NS 50 ML IV ONE (08:54)
[2017-03-10] MEDS ORDERED: KAYEXALATE PO ONE (08:55)
[2017-03-10 09:40] LABS: ALBUMIN 1.9 g/dL (3.5-5.0); TOTAL BILIRUBIN 16.5 mg/dL (0.20-1.00); TOTAL PROTEIN 6.8 g/dL (6.3-8.3)
[2017-03-10] MEDS: HEPARIN SUBQ SCH (09:49)
[2017-03-10] MEDS ORDERED: DIPRIVAN 1% ONE ×2 (09:57→11:32)
[2017-03-10] MEDS ORDERED: FENTANYL ONE (09:57)
[2017-03-10] MEDS ORDERED: XYLOCAINE-MPF 2% ONE (09:59)
[2017-03-10] MEDS ORDERED: QUELICIN (DOSE) ONE ×2 (10:00→10:01)
--- NOTE | 2017-03-10 10:01 | ECHO REPORT ---
ORDER DATE: 03/10/2017 PROCEDURE: A 2D echocardiogram to assess for and rule out endocarditis. ECHOCARDIOGRAPHIC MEASUREMENTS: 1. Interventricular septum 1.3, left ventricular posterior wall 0.9, diastolic diameter 3.6, left atrium 3, aorta 3.1. 2. Normal left ventricular cavity size. Estimated ejection fraction of 65-70%. 3. Aortic valve leaflets were trileaflet. Mitral valve leaflets revealed there is a questionable thickening and mobile small mass noted in the posterior mitral leaflet. 4. The tricuspid valve was normal. The right atrium had a filamentous, long, 2 cm mass attached to the right atrial wall. This could represent a Chiari network and/or atypical feature of a thrombus or endocarditis. 5. The structure on the posterior mitral valve leaflet is suspicious for endocarditis. 6. Doppler studies revealed there is no aortic stenosis or regurgitation. 7. There is mild tricuspid regurgitation. Peak velocity across the tricuspid valve was 3 m/sec. There is trace mitral regurgitation. 8. Peak velocity across the aortic valve less than 2 m/sec. There is no aortic stenosis or regurgitation. CONCLUSIONS: 1. Normal left ventricular cavity size. Estimated ejection fraction of 65-70%. 2. Mitral valve leaflet attached to the posterior mitral valve leaflet. There is a mobile structure seen in some views on the 2D echocardiogram. This could represent an endocarditis. Given the diagnosis, would recommend a transesophageal echocardiogram. 3. In the right atrium, there is a filamentous, long mass noted. This could be Chiari network and/or a thrombus. Regardless, would recommend transesophageal echocardiogram to evaluate structures. There is no pericardial effusion. cc: MD Clemente Coleman MD
[2017-03-10 10:06] LABS: DIRECT BILIRUBIN 13.8 mg/dL (0.00-0.20)
--- NOTE | 2017-03-10 10:57 | PROGRESS NOTE ---
DATE: 03/10/2017 SUBJECTIVE: Today Mr. Moralez refers to be doing a little better. He has been hurting, complaining of pain in the left upper chest wall where the swelling is. OBJECTIVE: Vital signs: Blood pressure is 123/79, pulse of 94, respirations 16 , temperature is 96.4 degrees. General: Ms. Moralez is a 56-year-old -[place] male. He is in bed, not in any cardiopulmonary distress. HEENT: Mucosa is pink and moist. Anicteric. Acyanotic. Neck: Supple. Chest: Good air entry bilaterally. No crepitations. No rhonchi. Cardiovascular: Regular rate and rhythm. There is no murmurs, no rubs. Abdomen: Soft, nontender. Extremities: No pedal edema. 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 He is groaning in pain. Chest wall, still there is about 3 x 4 cm swelling, which is tender. Seems to be a little bit more fluctuant today than yesterday. LABORATORY DATA: WBC is 19.19, hemoglobin is 12.4, platelet count of 79,000. Chemistry: Sodium is 140, potassium is 6.0, chloride is at 24. Patient's AST went up slightly. Total bilirubin is 16.50. AST is 200, ALT 67, alkaline phosphatase is 189. Blood culture is positive for gram positive cocci, presumed to be methicillin resistant staph aureus. A urine catheterization has shown methicillin resistant staph aureus and the wound aspirate that was done by Dr. Joaquin on admission also showed gram positive cocci at 3+. ASSESSMENT: 1. Severe sepsis, likely due to underlying skin and soft tissue infection. 2. Gram-positive bacteremia. 3. Methicillin resistant staph aureus urinary tract infection. 4. Left upper supraclavicular mass with Gram stain showing gram-positive cocci suspicious for possible Staph in the subcutaneous abscess. 5. Acute kidney injury, improving. 6. Hepatitis, unclear etiology, likely due to sepsis induced hepatopathy. 7. Altered mental status due toxic metabolic encephalopathy from, sepsis improving. 8. Chronic dermatosis, suspicious for psoriasis. PLAN: The plan is that Mr. Moralez has been seen by Infectious Disease. We will continue with the current vancomycin and Zosyn until we have all the cultures and then this will be narrowed down. There is also the plan to take him to OR for I D of the left supraclavicular mass. He does have potassium elevated today. Will treat this with acute measures and repeat to see will how far it has gone. Also pending Echo report. cc: Tyrese Burger MD MTDD
[2017-03-10] MEDS ORDERED: SODIUM CHLORIDE 0.9% 10 ML ONE (11:15)
[2017-03-10] MEDS ORDERED: NEO-SYNEPHRINE ONE (11:15)
[2017-03-10] MEDS ORDERED: ZOFRAN ONE (11:18)
[2017-03-10 11:22] LABS: INR 1.49; PROTIME 16.1 Seconds (9.2-11.7)
[2017-03-10] MEDS ORDERED: MARCAINE 0.25% PF/EPI 1:200,000 ONE (11:24)
[2017-03-10 11:28] LABS: PTT 54.1 Seconds (22.0-36.0)
[2017-03-10] MEDS ORDERED: NS 1,000 ML ONE (12:07)
[2017-03-10] MEDS ORDERED: D50W SYRINGE ONE (12:31)
[2017-03-10] MEDS ORDERED: PERCOCET-10 PO PRN (12:46)
[2017-03-10] MEDS ORDERED: VANCOMYCIN IV PER PHARMACY MISC SCH (13:00)
--- NOTE | 2017-03-10 15:58 | OPERATIVE NOTE ---
PROCEDURE DATE: 03/10/2017 PROCEDURE: Incision and drainage of subcutaneous abscess over the left sternoclavicular joint. SURGEON: Stas Joaquin MD MRP CONTROLLER: ROOSEVELT Perkins PREOPERATIVE DIAGNOSIS: Subcutaneous abscess over the left sternoclavicular joint. POSTOPERATIVE DIAGNOSIS: Subcutaneous abscess over the left sternoclavicular joint. DESCRIPTION OF PROCEDURE: Satisfactory general anesthesia achieved, the left upper anterior chest were prepped and draped in a sterile fashion. We made a 5 cm long transverse incision over the mass. We carried our incision into the subcutaneous tissue where we encountered pus. We evacuated the pus from the subcutaneous cavity. We debrided some of the subcutaneous fat from both sides of the incision that was somewhat necrotic. We excised all the necrotic tissue until we got back to viable subcutaneous tissue. The joint did not appear to be involved. We copiously irrigated out the wound. We then packed it with Betadine-impregnated gauze, covered with 4 x 4, sterile gauze. He tolerated it well, was sent to the recovery room in satisfactory condition. cc: Stas Joaquin MD
[2017-03-10] MEDS ORDERED: ZOSYN 2.25 GM/NS 2.25 GM/50 ML IVPB IV SCH (17:00)
--- NOTE | 2017-03-10 18:13 | PROGRESS NOTE ---
DATE: 03/10/2017 PRESENT ILLNESS: The patient has methicillin-resistant Staph aureus bacteremia and urinary tract infection. On the patient's echocardiogram it appears she has mitral valve endocarditis and a mass in the right atrium which could be an infected thrombus. It could represent endocarditis also. 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 I suspect that the sternoclavicular joint is in fact involved even though at surgery Dr. Joaquin did not see any evidence of infection in the sternoclavicular joint. MEDICATIONS: The patient currently is on vancomycin and Zosyn. PHYSICAL EXAMINATION: Vital Signs: Temperature is 97.6 degrees, pulse 67, respirations 17, blood pressure 92/51. General: This is an ill-appearing, elderly male, who is seen postoperatively. He is sedated. He is in no acute distress. Thorax: Patient has a large dressing over the sternoclavicular joint. There is some bleeding present. Lungs: Clear to auscultation. Cardiovascular: Regular heart rate. Abdomen: Soft without masses or tenderness. LAB AND X-RAY: Blood, urine and wound cultures are growing methicillin-resistant Staph aureus. The patient's CBC shows a white count of 19,190, hemoglobin 12.4, and platelet count 79,000. Creatinine is 2.6. GFR is 31. Echocardiogram report as mentioned above shows mitral valve endocarditis and infected right atrial mass. 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 The plan is to continue vancomycin and discontinue Zosyn. Also, I have ordered a transesophageal echocardiogram. I am going to go ahead and also obtain on this patient antibody to HIV and immunoglobulin levels. cc: Clemente Vivas MD
--- NOTE | 2017-03-10 19:26 | PROGRESS NOTE ---
DATE: 03/10/2017 SUBJECTIVE: I spoke with Dr. Vivas with regards to the echocardiogram report which is suspicious for possible mitral valve endocarditis. There is also the suspicion that the abscess on the clavicle could potentially have a septic arthritis below. Patient will have a CONCEPCION done as per Cardiology recommendations, and will have the treatment algorithm for the bacterial endocarditis. At this point, we will be pending Cardiology to do the CONCEPCION to confirm what the imaging shows on the CONCEPCION. cc: Tyrese Burger MD
[2017-03-10] MEDS ORDERED: VANCOMYCIN 1,400 MG in NS 250 ML IV SCH ×4 (20:00)
[2017-03-10] MEDS: D50W SYRINGE IV PRN (23:00)
[2017-03-11] MEDS: DILAUDID IV PRN ×3 (01:10→16:44)
[2017-03-11] MEDS: NS 1,000 ML IV SCH ×2 (02:00→11:43)
[2017-03-11] MEDS: HEPARIN SUBQ SCH ×2 (05:43→09:36)
[2017-03-11 07:16] LABS: BASO% 0.5 % (0.0-0.8); HEMATOCRIT 29.4 % (42.0-52.0); HEMOGLOBIN 10.3 g/dL (14.0-18.0); IMM GRAN# 0.22 X1000 (0.0-0.04); IMM GRAN% 1.1 % (0.0-0.5); LYMPH# 3.54 X1000 (1.2-3.4); LYMPH% 16.9 % (20.5-51.1); MANUAL DIFF NEEDED? YES; MCH 31.3 PG (27-31); MCV 89.4 FL (81-99); MONO# 2.49 X1000 (0.11-0.59); MONO% 11.9 % (1.7-9.3); MPV 10.6 FL (7.4-10.4); NEUT% 68.6 % (42.2-75.2); PLT 84 X1000 (130-400); RBC 3.29 XMIL (4.7-6.1)
--- NOTE | 2017-03-11 07:27 | PROGRESS NOTE ---
DATE: 03/11/2017 SUBJECTIVE: Bleeding noted at his incision. The nurses changed the dressing and held pressure. At this time, a new dressing has been placed but I did not see any bleeding going through, although the dressing has only been placed for a short period of time. OBJECTIVE: Vital Signs: Patient is currently afebrile. His vital signs have been stable. General: No acute distress. Chest Wall: With newly placed dressing. I do not see any blood saturation. Cardiovascular: Mildly tachycardic. Lungs: Grossly clear. LABORATORY: Currently pending. ASSESSMENT AND PLAN: A 56-year-old -[place] male status post incision and drainage of left chest wall abscess. 1. Postoperative state at this time. Patient does have some bleeding. We will hold his heparin and will monitor it closely. Nurses have placed a new pressure dressing on it. We will monitor this. If it stays stable without any active bleeding, we will restart his heparin potentially tomorrow, otherwise, continue current treatment. We will follow along with you. cc: Naun Ramos MD
[2017-03-11 07:48] LABS: BANDS 6 % (0-1); EOS 2 % (1-10); LYMPHS 10 % (21-51); MONO 8 % (1-9)
[2017-03-11] MEDS ORDERED: VANCOMYCIN 1.2 GM in NS 250 ML IV SCH (08:00)
[2017-03-11 08:44] LABS: ALBUMIN 1.6 g/dL (3.5-5.0); TOTAL BILIRUBIN 15.37 mg/dL (0.20-1.00); TOTAL PROTEIN 6.3 g/dL (6.3-8.3)
[2017-03-11 08:46] LABS: POTASSIUM 6.7 mmol/L (3.5-5.1)
[2017-03-11] MEDS: D50W SYRINGE IV PRN ×3 (10:27→20:45)
[2017-03-11] MEDS ORDERED: ALBUTEROL NEB INH ONE (10:45)
[2017-03-11] MEDS ORDERED: CALCIUM GLUCONATE 4.65 MEQ in NS 50 ML IV ONE (10:45)
[2017-03-11] MEDS ORDERED: SODIUM BICARBONATE 8.4% IV ONE (10:46)
[2017-03-11] MEDS ORDERED: DDAVP IV ONE ×2 (10:47→11:00)
[2017-03-11] MEDS ORDERED: LASIX IV ONE ×2 (11:00→23:13)
[2017-03-11] MEDS ORDERED: NS IV ONE (11:00)
--- NOTE | 2017-03-11 11:16 | PROGRESS NOTE ---
DATE: 03/11/2017 SUBJECTIVE: The patient is complaining of pain. Still confused. He has some bleeding issues. from his wound. OBJECTIVE: Blood pressure 105/60, respiratory rate 14, temperature 97 on room air.Cardiovascular: Regular rate and rhythm. Pulmonary: Bilateral breath sounds. Clear to auscultation. GI: Was soft, nontender, nondistended. Bowel sounds are positive. Extremities: No clubbing or cyanosis. Lymphatics: No peripheral edema. Neurological: Nonfocal. He did have bleeding from his left subclavian. LABORATORY DATA: White count 10, hemoglobin and hematocrit 10 and 29, platelets of 84,000. Potassium 6.7. BUN and creatinine 88 and 2.1 but has improvement from previously. Total bilirubin 15, AST and ALT of 226 and 669. PROBLEM LIST: 1. MRSA bacteremia sepsis which he may have underlying endocarditis associated with a subclavicular mass that may be related to MRSA as well. We will continue IV antibiotics. He is on vancomycin and Zosyn. Probably need to repeat blood cultures because we do not have a negative culture yet. ID is following. 2. Supraclavicular mass with associated infection. Continue IV antibiotics. Surgery is following. Will hopefully manage postop oozing. I am going to give him a dose of platelets just because platelets were low and he is still bleeding and a dose of desmopressin just to assist with platelet function and follow clinically. 3. Acute kidney injury. This does seem to be slowly improving. Urine output however is minimal. We may need to give him a bit of Lasix to ramp up his kidney function. I just do not want to injure his kidney function further since he has already had issues. 4. Hyperkalemia. We will treat and repeat his labs and follow. DISPOSITION: Patient is still critically ill. We are going to monitor in the ICU and continue to follow very closely. cc: Matthew Russell MD
[2017-03-11] MEDS: KAYEXALATE PO ONE ×2 (12:21→13:47)
[2017-03-11] MEDS: OXY IR PO PRN ×3 (13:57→20:46)
[2017-03-11 15:02] LABS: HIV ANTIBODY SCREEN SEE COMMENTS
[2017-03-11] MEDS ORDERED: ALBUMIN 25% IV ONE (15:17)
[2017-03-11] MEDS ORDERED: D5W 500 ML IV SCH (16:05)
[2017-03-11] MEDS ORDERED: LACTULOSE PO ONE (16:06)
[2017-03-11] MEDS: D5W 1,000 ML IV SCH (16:45)
--- NOTE | 2017-03-11 17:49 | CONSULTATION ---
DATE OF CONSULTATION: 03/11/2017 CONSULTATION REQUESTED BY: Hospitalist Service. REASON FOR CONSULTATION: Requesting a transesophageal echo for abnormal transthoracic echo. HISTORY: Mr. Moralez was admitted to the hospital on March 08 after presenting to the emergency department with complaints of swelling of the area of the left anterior chest on top of the sternoclavicular joint. The patient upon initial encounter was found to be tachycardic. He also reported a history of having several other conditions. His initial encounter blood work showed a white count of 20,000 with abnormal coagulation, elevated pro-time, PTT was also elevated. His BUN was 106. Creatinine was 4.0. His ammonia level was 85. His proBNP was 514. Troponin was negative. His potassium was 5.5. His chest CT showed a left supraclavicular mass and no evidence of pulmonary lesions. There were splenic calcifications. He was admitted to the hospital as a possible case of cellulitis, septicemia. His blood work grew Staphylococcus aureus which is MRSA. The Gram stain of the wound and the wound culture also yielded gram-positive cocci MRSA. They did a transthoracic echocardiogram on him that has been reported by Dr. Simmons as suspicious for vegetation of the mitral valve and also some lesion in the right atrium. Transesophageal echocardiogram has been suggested. At this time the patient is encephalopathic and not able to really sustain a conversation. There are family in the room, however, even the mother does not know very much about his past history. His past history, per records, indicates that he has had hepatitis C and possibly psoriasis for which he has taken treatment. He also has some chronic pains, arthritic type of pains, for which he has taken some pain medicines. No other major history appears to be noted and the patient has really been only once to the emergency room of this hospital and never been admitted in the past. There is a questionable history of gout. ALLERGIES: There are no allergies. HOME MEDICATIONS: His home medications at this time included: 1. Humira pen 40 mg IM as directed. 2. Oxycodone 3 times a day. 3. Robaxin 500 twice a day. 4. Gabapentin 300 at bedtime. 5. Famotidine 30 mg daily. 6. Cyclobenzaprine 10 three times a day. 7. Clonidine 0.1 daily. 8. Allopurinol 100 mg daily. FAMILY HISTORY: Noncontributory. SOCIAL HISTORY: He lives by himself. He is unemployed. 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 PHYSICAL EXAMINATION: Vital signs: Today blood pressure is 91/41. Temperature 96.5. Pulse 122. Respirations 19. General: He appears to be chronically ill, also malnourished. HEENT: He has jaundice which is pretty obvious. His oral mucosa is dry. Neck veins are not distended. Chest: Shows symmetrical breath sounds. He does have a very large dressing covering the left anterior chest which is oozing some bloody fluid. Cardiac: Heart sounds are regular and rhythmic. There is no gallop or murmur. Abdomen: Tender in the epigastric area. It is somewhat firm. Bowel sounds are diminished. Extremities: Show decreased pulses. No edema. Skin: He does have extensive skin lesions in the knees, elbows, and also in the right arm, extensive area of the arm and hand, which are hyperkeratotic, dark, and raise concern for the possibility of Mauritian scabies. He has also extensive plaque on the feet. Neurologic: He is encephalopathic. He really does not sustain a conversation. LABORATORY DATA: Bilirubin 15.37. Albumin 1.6, it was 1.8 on admission. His last pro-time was 16.1, PTT 54.1. His white count today is 20,910 with 6% bands, 74% neutrophils. IMPRESSION: 1. Patient who has an abnormal echocardiogram suspicious for vegetation. 2. Methicillin-resistant Staphylococcus aureus septicemia. 3. Liver failure with low albumin, high bilirubin, high pro-time, and encephalopathy. History of Hepatitis C. 4. History of psoriasis with hyperkeratotic lesions in the dorsal aspect of the hands and also in the feet which raise concern for Mauritian scabies. 5. History of gout. 6. Acute renal dysfunction on top of chronic renal dysfunction with hyperkalemia. RECOMMENDATIONS: At this point in time, I would suggest to consult with Gastroenterology. The patient probably is going into some sort of hepatorenal syndrome. From a cardiology viewpoint, I do not believe that a transesophageal echocardiogram is indicated at this time. On the transthoracic echocardiogram there is no evidence of any major valvular dysfunction and, therefore, the CONCEPCION is not really going to help in any way. I would suggest to postpone that test until the patient is stable and the test may be done safely at a point when it could offer some important clues at to what additional steps may need to be taken. The transthoracic echo did not reveal any significant valvular malfunction. I will stand by. Please call me if you need me for any specific assistance from the cardiology viewpoint. cc: José Miguel Rosado MD MTDD
[2017-03-11] MEDS ORDERED: LACTULOSE PO PRN (18:30)
--- NOTE | 2017-03-11 19:10 | CONSULTATION ---
DATE OF CONSULTATION: 03/11/2017 CONSULTING PHYSICIAN: Dr. Rosado. REASON FOR CONSULT: Was hepatitis and possible encephalopathy. HISTORY: This is a 56-year-old male who has presented to the hospital with a swelling on the right supraclavicular area. He has currently been treated for MRSA bacteremia, renal insufficiency and was found to have elevated LFT with history of chronic hepatitis C. Since admission he has been obtunded in fact today he has not been responding to questions and his ammonia level was elevated. Dr. Rosado was seeing him today for endocarditis and during his examination when he found him to have what appeared to be encephalopathy he consulted me for further evaluation and treatment. Patient is not responding to questions. His mother is present at the bedside but she is unaware of his history. Most of the information was obtained from the chart according to which patient has history of gout and psoriasis and he is receiving Humira for his psoriasis. He has history of hypertension and history of hepatitis C and I do not know the details and the status of his chronic liver disease. PAST MEDICAL HISTORY AND SURGICAL HISTORY: Again not available except what is mentioned in the chart. SOCIAL HISTORY: He lives by himself. Smokes about a pack of cigarettes per day. Does not use illicit drugs. FAMILY HISTORY: Could not be obtained. REVIEW OF SYSTEMS: Could not be obtained. PHYSICAL EXAM: Vitals: Temperature 96.9 degrees, pulse is 118 per minute, breathing 19, blood pressure was 99/44. General: Patient is lying in bed unresponsive to questions, the nurse informs me that he has also received pain medications. HEENT: Head is atraumatic, normocephalic. Conjunctiva is normal. Sclerae icteric. Nares patent. Mouth buccal mucosa is moist. Throat is normal. Neck: Supple. No lymphadenopathy, thyromegaly. Chest: Clear to auscultate. Heart: S1 and S2 audible no murmur. Abdomen: Is full, it is soft, is nontender. I could not appreciate masses, megaly, no ascites noted. Bowel sounds are audible. Extremities: Has got deep pigmentation of both upper extremity and lower extremity. LABS: Reviewed which showed WBC 20.91, hemoglobin 10.3, hematocrit 29.4, MCV 89.4, platelets were 84,000. Sodium 145, potassium 6.7, chloride 116, bicarb 20, BUN is 88, creatinine 2.1, AST was 226, ALT 69, alkaline phosphatase 176, total bilirubin was 15.37, albumin 1.6, total protein was 6.3. PT 16.1, INR 1.49, PTT 54.1. HIV was negative. Immunoglobulins, IgG was high 3077, IgA was high 774. IMPRESSION: Chronic hepatitis C by history. Features suggestive of portal hypertension that is his platelets are low, albumin is low and PT is elevated suggestive of poor synthetic function of the liver. His ammonia is high and he is obtunded partially because of pain medication that he is receiving and he may have hepatic encephalopathy precipitated by multiple factors including infection that his methicillin-resistant Staphylococcus aureus bacteremia and cellulitis in the left supraclavicular infection as well as electrolyte imbalances which may have precipitated his encephalopathy. He has not had any bowel movements either. During my course of interview found out that his blood sugar level had dropped to very low also. I recommended to switch his IV fluid to D5W and then continue to monitor his blood sugar levels. In the meantime continue hydration, continue supportive care. He has already received treatment for his hyperkalemia. I will start him on lactulose p.o., he has been able to drink, he has just finished ice cream and I will repeat lactulose to see if he can start his bowel movement and monitor his ammonia level and his mental status may improve from that, advise to avoid narcotics if possible and Dr. Joaquin is on the case to address his infection in the chest area. His renal insufficiency could be multifactorial and further plan for that as per medical team. I will continue to follow. In the meantime rest of the medical treatment as per the medical team. I discussed the case with his mother who was present bedside, answered all the pertinent questions. cc: Geronimo Wheeler MD MTDD
[2017-03-11 19:12] LABS: CALCIUM 8.1 mg/dL (8.8-10.2)
--- NOTE | 2017-03-11 19:24 | PROGRESS NOTE ---
DATE: 03/11/2017 PRESENT ILLNESS: The patient has methicillin-resistant Staph aureus mitral valve endocarditis with an associated urinary tract infection. In addition, on the patient's echocardiogram there is a mass in the right atrium which could be an infected thrombus or represent endocarditis. MEDICATIONS: The patient is on vancomycin as a single agent. Dr. Rosado feels that it would be too risky to do a transesophageal echocardiogram on this patient because of his severe liver disease and also because of his abnormal clotting studies. I agree with this also. PHYSICAL EXAMINATION: Vital Signs: Temperature is 96.9 degrees, pulse 118, respirations 19, blood pressure 99/44. General: This is an ill-appearing middle-aged male. He is delirious. Head, eyes, ears, nose, and Throat: No drainage noted from the nose or ears. Neck: No meningismus. Thorax: The patient has a large dressing over the sternoclavicular joint area. The dressing is intact. Lungs: Clear to auscultation. Cardiovascular: Heart rate is regular. Abdomen: Soft and nontender. Integument: Patient has numerous scaling areas over his body. LABORATORY AND X-RAY: The patient's IgG and IgA levels are very elevated at 3077 and 774 respectively. The patient's antibody to HIV was nonreactive. Liver function studies show an AST of 226. Creatinine is 2.1. GFR is 40. CBC shows a white count of 20,910, hemoglobin 10.3, and platelet count 84,000. ASSESSMENT AND PLAN: 1. The patient has a methicillin-resistant Staph aureus endocarditis with urinary tract infection and infected mass in the atrium and an infection in the chest which I think is due to a sternoclavicular joint arthritis. The plan is to continue vancomycin for a total of 8 weeks. 2. Comorbidities include severe liver disease, renal failure and gastroesophageal reflux disease. cc: Clemente Vivas MD
[2017-03-11] MEDS ORDERED: HUMULIN R IV ONE ×2 (19:55→23:13)
[2017-03-11] MEDS ORDERED: SODIUM BICARBONATE 8.4% IV PUSH ONE ×2 (20:05→23:13)
[2017-03-11] MEDS ORDERED: ALBUTEROL 0.5% INH CONC FOR HYPERKALEMIA INH ONE (20:06)
[2017-03-11] MEDS ORDERED: D50W SYRINGE IV ONE (23:15)
[2017-03-12] MEDS: D50W SYRINGE IV PRN (00:07)
[2017-03-12] MEDS: D5W 1,000 ML IV SCH ×4 (00:21→20:50)
[2017-03-12] MEDS: OXY IR PO PRN (00:26)
[2017-03-12] MEDS: DILAUDID IV PRN ×4 (01:36→20:46)
[2017-03-12 07:08] LABS: CALCIUM 8.1 mg/dL (8.8-10.2); POTASSIUM 5.3 mmol/L (3.5-5.1)
[2017-03-12 07:09] LABS: HEMATOCRIT 14.7 % (42.0-52.0); MCH 31.3 PG (27-31); MCHC 34.7 g/dL (33-37); MCV 90.2 FL (81-99); MPV 10.7 FL (7.4-10.4); RBC 1.63 XMIL (4.7-6.1)
[2017-03-12 07:10] LABS: HEMOGLOBIN 5.1 g/dL (14.0-18.0)
[2017-03-12 10:29] LABS: HEPATITIS PROFILE ACUTE SEE COMMENTS
--- NOTE | 2017-03-12 13:08 | PROGRESS NOTE ---
DATE: 03/12/2017 SUBJECTIVE: The patient is not responding to stimulus except for some moaning. Ammonia level has been ordered. Results pending. OBJECTIVE: Vital Signs: Temperature 97.0 degrees, pulse 105, respirations 15, blood pressure 102/46. Generally, he is nonresponsive to stimulants except for some moaning. There is no family at the bedside. He has a dressing to his chest. No current drainage noted on the dressing. Respiratory: Lung sounds essentially clear. Cardiovascular: Regular rate and rhythm. Abdomen soft, nontender. Skin with scaling areas, especially hands and feet. DIAGNOSTIC RESULTS: Laboratory: Hematology: White count 22.18, hemoglobin 5.1 , hematocrit 14.7, MCV 90.2. Chemistry: Sodium 149, potassium 5.3, chloride 110, CO2 of 22. BUN 103, creatinine 4.1, glucose 91. Last ammonia level on 03/08/2017 was 85. Serology HIV screen was nonreactive. Hepatitis panel. Nonreactive. Hepatitis A and B with reactive hepatitis C antibody. Immunology panel. IgA 774, IgG 3077, IgM 192. ASSESSMENT AND PLAN: 1. Chronic hepatitis C. 2. Hepatic encephalopathy. 3. Methicillin-resistant Staphylococcus aureus endocarditis. 4. Urinary tract infection. 5. Infected mass in an atrium. 6. Infection to the chest wall. 7. Anemia, his blood levels have dropped today. He is receiving blood. PLAN: Continue supportive care. He has orders for an NG tube for lactulose and Xifaxan administration. Repeat LFTs. We will get hepatitis C viral load, and hepatitis C genotype. We will continue to follow. Further plans will be made as needed. I have discussed this case with Dr. Wheeler. Dictated by JEAN MARIE Chairez for Geronimo Wheeler MD cc: JEAN MARIE Smart MD [facility]
[2017-03-12] MEDS: LACTULOSE PO SCH ×2 (13:31→20:30)
[2017-03-12] MEDS: XIFAXAN PO SCH ×2 (13:32→20:31)
--- NOTE | 2017-03-12 13:47 | Diag Imaging Result Doc PS360 ---
EXAM: ABDOMEN FLAT/UPRIGHT INDICATION: pain TECHNIQUE: 2 views COMPARISON: 03/08/2017 FINDINGS: There is an NG tube coiled in the lumen of the stomach in expected position. There is mild gaseous distention of the stomach similar to the previous study. There are nonspecific bowel gas and stool patterns, otherwise. There is no obstructive bowel pattern. There is no evidence of large volume free abdominal gas. IMPRESSION: Mild gaseous distention of the stomach similar to the previous study. Electronically signed by Neftali Claire 03/12/2017 1:45 PM
[2017-03-12] MEDS ORDERED: VANCOMYCIN 1,400 MG in NS 250 ML IV SCH (15:00)
[2017-03-12 15:06] LABS: ALBUMIN 2.2 g/dL (3.5-5.0); ALKALINE PHOSPHATASE 132 U/L (32-122); DIRECT BILIRUBIN > 10.00 mg/dL (0.00-0.20); GOT 1166 U/L (10-34); GPT 266 U/L (10-44); TOTAL BILIRUBIN 17.03 mg/dL (0.20-1.00); TOTAL PROTEIN 5.7 g/dL (6.3-8.3)
[2017-03-12 15:07] LABS: URINE MICRO REVIEW NEEDED? NO; URINE SOURCE CATH
[2017-03-12 15:12] LABS: BILIRUBIN URINE MODERATE (NEGATIVE); BLOOD URINE MODERATE (NEGATIVE); COLOR YELLOW; GLUCOSE URINE NEGATIVE (NEGATIVE); LEUKOCYTES URINE SMALL (NEGATIVE); NITRITE URINE NEGATIVE (NEGATIVE); PH URINE 5.5; PROTEIN URINE TRACE mg/dL (NEGATIVE); SP GRAVITY URINE 1.012; TURBIDITY URINE HAZY (CLEAR); UROBILINOGEN URINE NORMAL (NORMAL)
[2017-03-12 15:15] LABS: UR EPITHELIAL CELLS <10 /HPF (<10); URINE BACTERIA NEGATIVE /HPF; URINE RBC 20-40 /HPF (<10); URINE WBC <10 /HPF (<10)
[2017-03-12 15:21] LABS: UR CREAT RANDOM 69.8 mg/dL (14-26); UR PROT RANDOM 34.4 mg/dL
--- NOTE | 2017-03-12 15:29 | CONSULTATION ---
DATE OF CONSULTATION: 03/12/2017 REASON FOR CONSULTATION: Acute kidney injury. HISTORY OF PRESENT ILLNESS: Mr. Moralez is a 56-year-old man with a history of hepatitis C, gout, psoriasis, hypertension, etc. He has known chronic liver disease. He has had several trips to the emergency room because of pain in the left chest. Ultimately he was admitted on the with sternoclavicular septic arthritis. Blood cultures and joint cultures are positive for MRSA. On admission, he had hyperkalemia and acute kidney injury. He was treated with aggressive volume resuscitation, antibiotics and general supportive care. In that context, his creatinine improved from 4.7 to 2.1 but over the last 24 hours it has risen progressively again to 4.1. In this context, he has also had severe hyperkalemia that has been treated medically. It has been attended by a metabolic acidosis which has also worsened in this interval. He was taken to the operating room by Dr. Joaquin on the at which time he had incision and debridement of his infected joint. No significant blood loss is described in his operative note. In the last 24 hours, his hemoglobin has dropped rather precipitously from 10 down to 5 and this was attended all so by transient hypotension. IV fluids have continued and his blood pressure is improved. PAST MEDICAL HISTORY: As above. CURRENT MEDICATIONS: Vancomycin, D5W at 125 an hour, hydromorphone, lactulose, ondansetron, oxycodone, ALLERGIES: None. SOCIAL HISTORY: Ongoing smoker. No alcohol or illicit drugs currently. FAMILY HISTORY: Noncontributory. REVIEW OF SYSTEMS: Not obtainable. PHYSICAL EXAMINATION: Vital Signs: Blood pressure 128/71, heart rate 110, respirations 15, afebrile. Generally: He is a middle-aged, chronically ill man who moans and does not answer any questions. Skin: Warm and dry. He has diffuse skin changes with lichenification over extensor surfaces on the legs and arms as well as depigmentation on the feet and scaly erythematous rash. Pupils are equal. Conjunctivae are pink. Oropharynx not examined. Neck: Supple. Neck veins are not distended. Trachea is midline. Heart: Regular and tachycardic. Soft S4. No murmurs. Left upper chest wall is dressed. Lungs: Have equal breath sounds. No crackles. Abdomen: Somewhat distended but soft. Bowel sounds are present. No palpable organomegaly. Extremities: Have trace to 1+ edema. No clubbing or cyanosis. Neurologic: As above. LABORATORY DATA: White blood cell count 40446, hemoglobin 5.1, sodium 149, potassium 5.3, chloride 110, bicarbonate 22, BUN 103, creatinine 4.1, vancomycin level 13.4. IMPRESSION: 1. Acute kidney injury. Likely multifactorial. He did respond to volume initially but now his renal function is worsening. Certainly, he is at high risk to develop acute tubular necrosis from hypotension/toxic insult. 2. Hyperkalemia. Strongly suggestive of blood loss with GI absorption or a hematoma. No other obvious cause. This has been treated with some success and his most recent potassium is safe at 5.3. 3. Metabolic acidosis. Anion gap is improved from 23-17. This will be commensurate with his level of renal dysfunction. PLAN: 1. CT abdomen and pelvis. 2. Repeat urine electrolytes, eosinophils, etc. 3. Continue his D5 water until his free water deficit is resolved. 4. Monitor and treat his hyperkalemia as indicated. 5. No absolute indications for dialysis today but it may be required in the next 24-48 hours. 6. Continue vancomycin. I will defer antibiotic choices to Dr. Vivas. cc: MD ASHLI Mendes
--- NOTE | 2017-03-12 16:19 | Diag Imaging Result Doc PS360 ---
ABDOMEN/PELVIS W/O CONTRAST - 03/12/2017 INDICATION: elevated liver enzymes/renal failure TECHNIQUE: A CT dose reduction protocol was used. COMPARISON: 03/08/2017 FINDINGS: The lung bases are grossly clear and the heart size remains normal. Liver contour demonstrates severe nodularity compatible with cirrhosis. There is trace ascites. Shen catheter in the urinary bladder. No bowel obstruction or inflammation. There are couple small right-sided renal stones measuring up to 5 mm. No hydronephrosis or definite hydroureter. Prostate and rectum are normal. There is some body wall edema over the hips. There is also some intramuscular edema of the proximal left thigh that is partially evaluated. This fluid appears of low density. There is a nasogastric tube in the stomach. There are moderate degenerative changes of the spine. No acute or suspicious bony lesion. IMPRESSION: 1. Nonobstructing right renal stones. Grossly normal urinary bladder. 2. Severely nodular liver compatible with cirrhosis. 3. Trace ascites. 4. Flank edema about the hips. Significant intramuscular edema in the left thigh, etiology indeterminate. Electronically signed by Ernie Domínguez 03/12/2017 4:17 PM
[2017-03-12 18:13] LABS: HEMATOCRIT 23.3 % (42.0-52.0); HEMOGLOBIN 8.4 g/dL (14.0-18.0)
--- NOTE | 2017-03-12 19:39 | PROGRESS NOTE ---
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 It could be infected thrombus or endocarditis, the patient also has an associated methicillin-resistant Staph aureus urinary tract infection. 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 MEDICATIONS: Patient is on vancomycin as a single agent. This is day 3 of treatment with vancomycin. PHYSICAL EXAMINATION: Vital Signs: Temperature is 97.4 degrees, pulse 93, respirations 10, blood pressure 126/66. General: This is an ill-appearing middle-aged male. He is lethargic. I did not get him to answer questions. Lungs: Clear to auscultation. Cardiovascular: Heart rate is regular. Abdomen: Soft and nontender. Integument: There were multiple patches of black, scaling skin. Thorax: The dressing on the upper part of the chest is intact. LABORATORY AND X-RAY: The CBC today showed a white count of 22,180, hemoglobin 8.4, and platelet count 126,000. Creatinine is 4.1. GFR is 18. CT scan of the abdomen showed cirrhosis, a renal calculus and areas of edema. Repeat blood cultures are growing gram positive cocci which most likely will be methicillin-resistant Staph aureus. ASSESSMENT AND PLAN: 1. The patient has endocarditis urinary tract infection and sternal clavicular joint arthritis. My plan is to continue vancomycin for a total of 8 weeks. 2. Comorbidities include severe liver disease, renal failure, gastroesophageal reflux disease. cc: Clemente Vivas MD
[2017-03-12] MEDS ORDERED: D50W SYRINGE IV ONE (20:15)
[2017-03-13] MEDS: D5W 1,000 ML IV SCH ×3 (01:56→08:48)
[2017-03-13] MEDS: DILAUDID IV PRN ×3 (06:05→19:54)
--- NOTE | 2017-03-13 06:56 | PROGRESS NOTE ---
DATE: 03/13/2017 SUBJECTIVE: He is lying in bed moaning and does not interact or attend to me. OBJECTIVE: Vital Signs: Blood pressure 119/71, heart rate 98, respirations 12, afebrile. Intake 2.7 L. Output 1.3 L. Physical Examination: General: No acute distress. Skin: Warm and dry. HEENT: Conjunctivae are pink. Neck: Neck veins are not distended. Trachea is midline. Heart: Regular without gallops. Lungs: Have equal breath sounds. No crackles. Abdomen: Distended but soft. Bowel sounds are present. No organomegaly or masses. Extremities: Have 2+ edema. No clubbing or cyanosis. Laboratory Data: Pending. IMPRESSION: 1. Acute kidney injury. Urine output is acceptable. We will reassess his labs this morning. Urine electrolytes from last evening did not support prerenal state, more likely acute tubular necrosis. 2. Hyperkalemia. Repeat potassium last evening was 5.2. He responded appropriately to the transfusion. Still no evidence of gastrointestinal bleeding. 3. Anemia. Hemoglobin improved. Observe. 4. Metabolic acidosis. Moderate. Observe. cc: Magdiel Ramirez MD
[2017-03-13 07:02] LABS: HEMOGLOBIN 8.8 g/dL (14.0-18.0); MCH 31.5 PG (27-31); MCHC 35.2 g/dL (33-37); MCV 89.6 FL (81-99); RBC 2.79 XMIL (4.7-6.1)
[2017-03-13 07:37] LABS: ALBUMIN 2.1 g/dL (3.5-5.0); CALCIUM 8.1 mg/dL (8.8-10.2); POTASSIUM 5.4 mmol/L (3.5-5.1); TOTAL BILIRUBIN 19.25 mg/dL (0.20-1.00); TOTAL PROTEIN 6.4 g/dL (6.3-8.3)
[2017-03-13] MEDS: XIFAXAN PO SCH ×2 (08:48→20:16)
[2017-03-13] MEDS: LACTULOSE PO SCH ×3 (08:48→19:16)
--- NOTE | 2017-03-13 10:11 | PROGRESS NOTE ---
DATE: 03/13/2017 SUBJECTIVE: The patient is much more confused today, minimally responsive. OBJECTIVE: Vital Signs: Blood pressure 122/69, heart rate 95, respiratory rate of 13, temperature 98.1 degrees, 99% on room air. Cardiovascular: Regular rate and rhythm. Pulmonary: Bilateral breath sounds clear to auscultation. GI: Soft, nontender, nondistended. Bowel sounds are positive. Laboratory Data: Potassium 5.4, BUN and creatinine 92 and 3.6. Total bilirubin 19,000. Most of that was direct. AST and ALT of 967 and 271, alkaline phosphatase of 144. PROBLEM LIST: 1. Methicillin-resistant Staphylococcus aureus bacteremia and sepsis. Continue intravenous vancomycin and Zosyn. Infectious disease is following. 2. Supraclavicular mass with methicillin-resistant Staphylococcus aureus infection. We will continue intravenous antibiotics. Surgery is following. Bleeding has discontinued. 3. Progressive anemia. His hemoglobin and hematocrit had dropped significantly but has improved after transfusion. We will continue to follow closely. 4. Acute kidney injury. We will continue to monitor. Continue gentle hydration. Renal was following at this point. No acute indications for dialysis at this point. 5. Encephalopathy, could be certainly related to hepatic component, although his ammonia had somewhat improved. We will check ABG and head CT, and follow clinically for any overall improvement. DISPOSITION: Pending rest of the workup. We will continue to follow very closely. Monitor in the ICU. cc: Matthew Russell MD
[2017-03-13 10:21] LABS: HCV BY PCR SEE COMMENTS; HCV CHARGE YES
[2017-03-13] MEDS: D5 1/2 NS 1,000 ML IV SCH (10:25)
--- NOTE | 2017-03-13 10:32 | Diag Imaging Result Doc PS360 ---
EXAM: HEAD W/O CONTRAST TECHNIQUE: 03/08/2017 INDICATION: Decreased LOC COMPARISON: None. FINDINGS: There is no definite acute infarct given the limited sensitivity of CT versus MRI. There is no discrete intracranial mass, mass effect, or intracranial hemorrhage. The surrounding soft tissues and bony structures are essentially unremarkable. IMPRESSION: No evidence of acute intracranial pathology. Electronically signed by Neftali Claire 03/13/2017 10:30 AM
--- NOTE | 2017-03-13 10:48 | Extremity Venous Study ---
PROCEDURE NAME: Venous U/S Bilateral Legs - 03/12/2017 BILATERAL LOWER EXTREMITY VENOUS IMAGING STUDY: REFERRING PHYSICIAN: Dr. Matthew Russell. INTERPRETATING PHYSICIAN: Dr. Stas Joaquin. APPLICATION DEVELOPER: Deo. The patient has bilateral lower extremity edema. FINDINGS: Bilateral lower extremity images accomplished. The common femoral, superficial femoral, deep femoral, popliteal, posterior tibial, peroneal, and greater saphenous are imaged bilaterally. The Doppler is used to evaluate the veins for spontaneity, phasicity, respiratory excursion, and distal augmentation. All veins are compressible. No intraluminal clot is seen. INTERPRETATION: No evidence of deep or superficial venous thrombosis in either lower extremity veins identified. cc: MD Matthew Rodriguez MD
[2017-03-13 11:04] LABS: INR 1.75
[2017-03-13 11:32] LABS: ALLEN TEST YES; BE 3.1 mmoll (-3.0-3.0); BLOOD TYPE ARTERIAL; DRAW SITE R RADIAL; METHB 0.2 % (0.0-1.5); O2(CT) 12.3 mL/dL (15.0-23.0); PCO2(98.6) 37 mmHg (35-45); PO2(98.6) 81 mmHg (60-100); SAMPLE BLOOD; SAO2 99.8 % (95.0-100.0); THB 8.9 g/dL (11.5-17.4); pH(98.6) 7.47 (7.35-7.45)
[2017-03-13 11:33] LABS: MODALITY ROOM AIR
[2017-03-13] MEDS ORDERED: NS 250 ML ONE ×2 (11:45→13:50)
--- NOTE | 2017-03-13 13:37 | Diag Imaging Result Doc PS360 ---
EXAM: CHEST-PORTABLE HISTORY: PICC placement TECHNIQUE: AP portable at 1320 COMMENT: There is a right-sided PICC line with its tip directed across the midline into the left subclavian vein. The inspiration is suboptimal. There is an NG tube coiled in the fundus of the stomach. Overall, otherwise has been no significant change since 03/08/2017. IMPRESSION: PICC line in the left subclavian vein. Electronically signed by Triston Hurley 03/13/2017 1:35 PM
--- NOTE | 2017-03-13 18:13 | PROGRESS NOTE ---
DATE: 03/13/2017 SUBJECTIVE: Patient was lying in bed unresponsive, but he was grimacing on painful stimuli. He was not responding to questions. He had an NG tube in place and receiving IV fluids. He appeared to be a little tachypneic. OBJECTIVE: Vitals: Temperature 98.1 degree Fahrenheit. Pulse was 95 per minute. Regular breathing at 13. Blood pressure 122/69. Abdomen: Was slightly distended, but soft. It is nontender. I could not appreciate any mass or visceromegaly. No ascites noted. Bowel sounds are audible. Extremities: No pitting edema noted. LABS: Reviewed which showed WBC 20.42, hemoglobin 8.8, hematocrit 25.0, MCV 89.6, and platelets were 115. Sodium was 139, potassium 5.4, chloride 104, bicarb 24, BUN was 92, creatinine 3.6. Glucose was 116. AST 976, ALT 271, alkaline phosphatase 144. Ammonia level was 80. Hepatitis C antibody was positive and he had almost 26 million via count, genotype was pending. IMPRESSION: 1. Hepatic encephalopathy. 2. Chronic on acute hepatitis C. 3. Renal failure. 4. Respiratory insufficiency. 5. MRSA bacteremia with urinary tract infection. 6. Infected clavicular manubrial joint. RECOMMENDATION: From GI point of view, he is already on lactulose and Xifaxan. I would continue the same. Continue supportive care. There are multiple factors affecting him and causing his encephalopathy. Once things fall into place, things will improve. In the meantime, will follow. Because of his multiorgan injury, prognosis remains poor. cc: Geronimo Wheeler MD
[2017-03-13 20:58] LABS: HEPATITIS C GENOTYPE SEE COMMENTS
[2017-03-14] MEDS: D5 1/2 NS 1,000 ML IV SCH ×2 (03:17→13:24)
[2017-03-14 06:22] LABS: HEMATOCRIT 24.5 % (42.0-52.0); HEMOGLOBIN 8.4 g/dL (14.0-18.0); MCH 31.5 PG (27-31); MCHC 34.3 g/dL (33-37); MCV 91.8 FL (81-99); MPV 11.3 FL (7.4-10.4); RBC 2.67 XMIL (4.7-6.1)
[2017-03-14 06:55] LABS: CALCIUM 8.4 mg/dL (8.8-10.2); POTASSIUM 5.3 mmol/L (3.5-5.1); TOTAL PROTEIN 6.4 g/dL (6.3-8.3)
[2017-03-14 07:02] LABS: TOTAL BILIRUBIN 19.87 mg/dL (0.20-1.00)
[2017-03-14] MEDS: XIFAXAN PO SCH ×2 (08:21→20:04)
[2017-03-14] MEDS: LACTULOSE PO SCH ×3 (08:22→17:14)
--- NOTE | 2017-03-14 10:25 | PROGRESS NOTE ---
DATE: 03/14/2017 SUBJECTIVE: The patient has no focal complaints. OBJECTIVE: Blood pressure 129/77, heart rate of 102, respiratory rate 16, temperature 97.4 degrees. Cardiovascular: Regular rate and rhythm. Pulmonary: Bilateral breath sounds. Clear to auscultation. GI soft, nontender, nondistended. Bowel sounds are positive. He does open his eyes and tracks somewhat, but he does not really do much else than that. Following commands. LABORATORY DATA: Potassium 5.3. Creatinine is down to 2.6. BUN is down to 92 or he is at 92. T bilirubin is still high at 19.8. AST and ALT are down to 568 and 198. Ammonia still up at 80. Complement levels low C3, normal C4. PROBLEM LIST: 1. Hepatic encephalopathy. We will continue lactulose and . He is still very altered but I think a little bit more awake than he was before. Head CT was unremarkable. He is not hypercapnic. I think this is related to sepsis and hepatic encephalopathy. We will try to get a neurologic opinion and see if there is anything else going on from that standpoint. 2. Methicillin-resistant Staphylococcus aureus bacteremia sepsis and abscess. He is on IV vancomycin and Zosyn. Infectious Disease is following. The vancomycin, I think he has been on for at least 3 days, and I think it has been longer than that; he has probably been on it since the first. He has been on Zosyn but that was discontinued. 3. Acute kidney injury. This does seem to be getting better. We will continue to monitor and do gentle hydration. Renal is following. Potassium is stabilized. 4. Supraclavicular mass is also stabilized. Bleeding has resolved. Surgery is following. 5. Anemia secondary to postop hemorrhage. That has also improved. He had a transfusion of 2 units a couple days ago and numbers have overall improved. 6. Cirrhosis. He has got cirrhosis in the setting of hepatitis C, which is likely contributing to his confusion with hyperammonemia but we will need to watch closely for ascites and other issues. Right now, I am going to try to hold any sedating medications in an attempt to try to see if he can wake up a little bit better, and we will monitor his ammonia levels. Condition still critical. We will continue to follow. cc: Matthew Russell MD
--- NOTE | 2017-03-14 11:35 | PROGRESS NOTE ---
DATE: 03/14/271 SUBJECTIVE: Mr. Moralez is resting quietly in bed. He does open his eyes to verbal stimuli. He moans but does not interact. OBJECTIVE: His most recent vital signs, temperature 97.4 degrees, last blood pressure 129/77, heart rate 102, respirations 16. He is on room air. Last recorded saturation is 99%. He has had 2200 in. He has had 2500 out per Shen catheter. LABORATORY DATA: Sodium 141, potassium 5.3, chloride 106, CO2 23. BUN 92, creatinine 2.6, glucose 96. Anion gap 12, calcium 8.4, albumin 2. White count 19.33, hemoglobin 8.4, hematocrit 24.5, with a platelet count of 113,000. Patient had an elevated FENa score yesterday. PHYSICAL EXAMINATION: General: This is a 56-year-old male. He is currently resting in bed. He is in no acute distress. Skin: Warm and dry. HEENT: Normocephalic, atraumatic. Conjunctiva is pink. He has RUBINA. Mucous membranes are dry. Neck : Supple. Trachea midline. No JVD. Cardiovascular: Regular rate and rhythm. He has a positive S4. Lungs: Coarse breath sounds noted otherwise clear to auscultation. He remains on room air. Equal excursion. Abdomen: Slightly distended. NG tube remains clamped. Positive bowel sounds hypoactive. Genitourinary: Shen catheter remains in place. Not inspected. Extremities: Continues with 2+ edema. No clubbing or cyanosis. ASSESSMENT AND PLAN: 1. Acute kidney injury. Urine output remains acceptable. Creatinine has improved down to 2.6. BUN is improved also. We will continue with gentle fluid hydration, normal saline at 75 mL an hour. 2. Electrolytes. Patient remains mildly hyperkalemic. No indications for intervention. We will continue to monitor. 3. Acidosis. This remains moderate. We will continue no changes. 4. Anemia. Hemoglobin has improved after transfusion. 5. Cirrhosis in the setting of hepatitis C. This is currently being followed by the primary care team. 6. Hepatic encephalopathy. He is currently receiving lactulose. Again followed by the primary care team. 7. Methicillin-resistant Staph aureus bacteremia. Sepsis with abscess. He remains on vancomycin and Zosyn renally dosed. I would to thank you for allowing us to follow with this patient. Seen, data reviewed, discussed with Cheyanne Mejía on 03/14/17. I agree with the above assessment and plan of care. rg Dictated by JEAN MARIE Pearce for Magdiel Ramirez MD cc: JEAN MARIE Pearce MD [facility]
--- NOTE | 2017-03-14 12:45 | PROGRESS NOTE ---
DATE: 03/14/2017 SUBJECTIVE: The patient does arouse to stimulus. He does open his eyes, no verbal communication, but he does seem to be more awake than previous days. OBJECTIVE: Vital signs: Temperature 97.1, pulse 92, respirations 15, blood pressure 126/74. General: The patient does arouse but does not communicate verbally at the present time. HEENT: Normocephalic, atraumatic. Cardiovascular: Regular rate and rhythm. Lungs; Lung sounds essentially clear. Abdomen: Soft, positive bowel sounds. He has an NG tube in place. There are plans to start feedings. Chest: He has a dressing to that chest wound, is following with Dr. Joaquin. LABORATORY: Hematology: White count 19.33, hemoglobin 8.4, hematocrit 24.5, MCV 91.8. Chemistry: Sodium 141, potassium 5.3, chloride 106, CO2 of 23, BUN 92, creatinine 2.6, glucose 96. Total bilirubin 19.87. AST 568, ALT 198, alkaline phosphatase 144. Ammonia on 03/13/2017 was 80. Hepatitis genotype is 1a. HCV RNA viral load is 26,347,870, 7.42 log. ASSESSMENT AND PLAN: 1. Hepatic encephalopathy. 2. Chronic on acute hepatitis C with a high viral load. 3. Renal failure. 4. Respiratory insufficiency. 5. Methicillin-resistant Staphylococcus aureus (MRSA) bacteremia with urinary tract infection. 6. Infected clavicular joint. Following with Dr. Vivas. Following with Dr. Joaquin and Nephrology. We will continue lactulose and Xifaxan. He has orders to have NG tube feedings started. We will continue to follow with patient. Further plans will be made as needed. I have discussed this case with Dr. Wheeler. Dictated by JEAN MARIE Chairez for Geronimo Wheeler MD cc: JEAN MARIE Smart MD
[2017-03-14] MEDS: MORPHINE IV PRN (17:15)
[2017-03-14] MEDS: CUBICIN 500 MG in NS 100 ML IV SCH (20:21)
--- NOTE | 2017-03-14 20:22 | PROGRESS NOTE ---
DATE: 03/14/2017 PRESENT ILLNESS: Patient has methicillin-resistant Staph aureus mitral valve endocarditis with a mass in the right atrium which could be a thrombus or endocarditis. Patient also has methicillin- resistant Staph aureus urinary tract infection and sternoclavicular joint septic arthritis. MEDICATIONS: This is day 5 of treatment with vancomycin. PHYSICAL EXAMINATION: Vital Signs: Temperature is 97.4 degrees, pulse 99, respirations 14, blood pressure 133/78. General: This is an ill-appearing, middle-aged male. He is very lethargic. I could not arouse him to talk or to follow request to move his extremities. Lungs: Clear to auscultation. Cardiovascular: Heart rate is regular. Abdomen: Soft and nontender. Chest: The patient has a dressing over the sternoclavicular joint arthritis. The dressing is intact. LAB AND X-RAY: There is no new x-ray today. CBC shows a white count of 19,330, hemoglobin 8.4 and platelet count 113,000. Creatinine is 2.6. GFR is 31. Repeat blood cultures are growing methicillin-resistant Staph aureus. ASSESSMENT AND PLAN: Patient has endocarditis, urinary tract infection and sternoclavicular joint arthritis. The patient continues to have positive blood cultures despite being on vancomycin. I have discontinued vancomycin and started the patient on daptomycin on the 17 of March. I will repeat the patient's blood cultures. COMORBIDITIES: The patient's comorbidities include severe liver disease, renal failure and gastroesophageal reflux disease. cc: Clemente Vivas MD
[2017-03-15] MEDS: D5 1/2 NS 1,000 ML IV SCH ×2 (02:29→16:15)
[2017-03-15 05:01] LABS: HEMOGLOBIN 8.6 g/dL (14.0-18.0); MCH 31.3 PG (27-31); MCHC 34.4 g/dL (33-37); MCV 90.9 FL (81-99); MPV 11.2 FL (7.4-10.4); RBC 2.75 XMIL (4.7-6.1)
[2017-03-15 05:35] LABS: MAGNESIUM 2.1 mg/dL (1.5-2.7)
[2017-03-15 06:04] LABS: ALBUMIN 1.7 g/dL (3.5-5.0); CALCIUM 8.5 mg/dL (8.8-10.2); POTASSIUM 4.5 mmol/L (3.5-5.1); TOTAL PROTEIN 6.4 g/dL (6.3-8.3)
[2017-03-15 06:09] LABS: TOTAL BILIRUBIN 17.59 mg/dL (0.20-1.00)
[2017-03-15] MEDS: XIFAXAN PO SCH ×2 (08:08→21:21)
[2017-03-15] MEDS: LACTULOSE PO SCH ×2 (08:08→21:22)
[2017-03-15] MEDS: MORPHINE IV PRN ×3 (09:48→17:55)
[2017-03-15] MEDS: ALBUMIN 25% IV SCH ×2 (12:17→23:46)
--- NOTE | 2017-03-15 12:36 | PROGRESS NOTE ---
DATE: 03/15/2017 TIME SEEN: 0735. SUBJECTIVE: Mr. Moralez is resting quietly in bed. He has just had oral mouth care and turned and repositioned. He denies chest pain or increased work of breathing. OBJECTIVE: Most recent vital signs: Temperature 98.3 degrees, blood pressure 120/68, heart rate 111, respirations are 20. He is on room air. Last recorded saturation 99%. He has had 2450 In with 2300 Out per Shen catheter. LABORATORY DATA: Sodium 143, potassium 4.5, chloride 111, CO2 of 21. BUN 67, creatinine 2.1, glucose 119. Anion gap 11. Calcium 8.5, phosphorus 4.5, albumin 1.7, magnesium 2.1. White count 15.47. Hemoglobin 8.6, hematocrit 25, platelet count 102,000. Ammonia level 38. Random vancomycin is 9.6. PHYSICAL EXAMINATION: This is a 56-year-old -[place] male. He is resting in bed. He is in no acute distress. Skin is warm and dry. HEENT: Normocephalic, atraumatic. Conjunctivae pink. He has RUBINA. Mucous membranes are dry. Neck is supple. Trachea midline. No JVD. Cardiovascular: Regular rate and rhythm. He has a positive S4. Lungs clear to auscultation anteriorly. Equal excursion. Diminished posterior bases on room air. Abdomen is slightly distended. NG tube remains clamped. Positive bowel sounds noted. Genitourinary: Shen catheter in place. Adequate urine out; not inspected. Extremities: He continues with 2 + lower extremity edema. Integumentary: The patient has noted patchy scaly area to knees and to bilateral feet and upper elbow. ASSESSMENT AND PLAN: 1. Acute kidney injury. Patient's urine output remains acceptable. Creatinine continues to improve; now down to 2.1. He continues on gentle fluid hydration. 2. Electrolytes and acid-base balance. These are stable. 3. Anemia. This remains low but stable. 4. Cirrhosis with hepatitis C. Followed by primary care team. 5. Methicillin-resistant Staphylococcus aureus bacteremia, sepsis with abscess. It is indicated the patient has endocarditis. Dr. Vivas is following. Vancomycin has been discontinued. He is now on daptomycin. No changes indicated. I would like to thank you for allowing us to follow with this patient. Dictated by JEAN MARIE Pearcedish, MD cc: JEAN MARIE Pearce MD [facility]
[2017-03-15] MEDS: LASIX IV SCH (13:06)
[2017-03-15] MEDS ORDERED: LACTULOSE PO SCH (21:00)
[2017-03-15] MEDS: CUBICIN 500 MG in NS 100 ML IV SCH (21:20)
[2017-03-16] MEDS: LASIX IV SCH (01:32)
[2017-03-16] MEDS: D5 1/2 NS 1,000 ML IV SCH ×2 (04:03→17:03)
[2017-03-16 05:34] LABS: HEMATOCRIT 23.3 % (42.0-52.0); HEMOGLOBIN 7.8 g/dL (14.0-18.0); MCH 31.5 PG (27-31); MCHC 33.5 g/dL (33-37); MPV 11.5 FL (7.4-10.4); RBC 2.48 XMIL (4.7-6.1)
[2017-03-16 06:10] LABS: ALBUMIN 2.4 g/dL (3.5-5.0); CALCIUM 8.9 mg/dL (8.8-10.2); POTASSIUM 3.9 mmol/L (3.5-5.1); TOTAL BILIRUBIN 19.27 mg/dL (0.20-1.00); TOTAL PROTEIN 6.9 g/dL (6.3-8.3)
[2017-03-16] MEDS: LACTULOSE PO SCH ×3 (07:48→17:32)
[2017-03-16] MEDS: XIFAXAN PO SCH ×3 (07:48→20:21)
[2017-03-16] MEDS: MORPHINE IV PRN ×2 (09:53→12:40)
[2017-03-16] MEDS ORDERED: LASIX IV ONE (12:37)
[2017-03-16] MEDS ORDERED: NS 500 ML ONE (14:17)
--- NOTE | 2017-03-16 15:05 | PROGRESS NOTE ---
DATE: 03/16/2017 SUBJECTIVE: The patient is still pretty confused. He does wake up and respond. He opens eyes, but he is not following commands readily. OBJECTIVE: Vital signs: Blood pressure 144/76, heart rate 106, respiratory 17, temperature 97.9 degrees. Cardiovascular: Regular rate and rhythm. Pulmonary: Bilateral breath sounds. Clear to auscultation. GI: Soft, nontender, nondistended. Bowel sounds are positive. Extremities: No clubbing or cyanosis. Lymphatic exam: He has 3+ pitting edema in his lower extremities. LABORATORY DATA: White count 16, hemoglobin and hematocrit 7.8 and 23, platelets 96,000. BUN and creatinine 58 and 2. Sodium is normal. T bilirubin is still high at 19. AST down to 237 from 341. ALT down to 110 from 143. PROBLEM LIST: 1. Hepatic encephalopathy, possibly a mixed encephalopathy. We will continue lactulose and rifaximin. He still very altered at this point. I still think it is related to sepsis and hyperammonemia. I am going to get a neurology opinion in the morning and evaluate. 2. Methicillin-resistant Staphylococcus aureus bacteremias. Sustained with abscess in the chest and infection of the sternocleidomastoid joint. He is on IV daptomycin at this point and Zosyn. ID is following. I think he got changed to daptomycin because of renal failure. He has persistent bacteremia. Repeat blood cultures ordered for tomorrow. Plan was for CONCEPCION but cardiology I think feels that he is not stable enough at this point. He does have criteria for possible endocarditis but we will follow. 3. Acute kidney injury related to acute tubular necrosis, sepsis. Fortunately this is improving. Potassium is also within normal limits. 4. Supraclavicular vallecular mass, likely related to methicillin-resistant Staphylococcus aureus infection. Continue surgical care and follow. 5. Anemia secondary to hemorrhage. Hemoglobin and hematocrit have drifted down again. I am going to give him another unit of blood because of ongoing sepsis, bacteremia, and we will follow. I think he also needs the oncotic pressure because he is 3rd spacing significantly. 6. Hepatitis C cirrhosis. Obviously a significant issue. He had acute hepatic failure as well. We are going to continue to follow. I am going to give him a little bit of vitamin K because his INR is elevated. 7. Disposition. Discussed at length with the daughter. She is concerned about his poor improvement. He has been here for over a week and obviously still not improved, although his liver and kidney function has improved somewhat. Although, we did discuss that cirrhosis is a terminal diagnosis and he is not a transplant candidate at this point with an MRSA infection. However, I will touch base with the hepatology service at [facility] and see if there is any chance of transfer or any other guidance from that standpoint. At this point he has a multidisciplinary team, GI, ID, nephrology, neurology, cardiology to some extent involved in care. He has no respiratory conditions at this point, so I have not involve pulmonary critical care or hypotensive. So we will continue to follow very closely. Condition is guarded. Family is aware. cc: Matthew Russell MD
[2017-03-16] MEDS: CUBICIN 500 MG in NS 100 ML IV SCH (20:21)
[2017-03-17] MEDS: D5 1/2 NS 1,000 ML IV SCH ×3 (05:40→19:58)
[2017-03-17 06:15] LABS: INR 1.75
[2017-03-17 06:29] LABS: ALBUMIN 2.1 g/dL (3.5-5.0); ALKALINE PHOSPHATASE 146 U/L (32-122); DIRECT BILIRUBIN > 10.00 mg/dL (0.00-0.20); GOT 206 U/L (10-34); GPT 102 U/L (10-44); TOTAL PROTEIN 7.3 g/dL (6.3-8.3)
[2017-03-17 06:37] LABS: TOTAL BILIRUBIN 18.96 mg/dL (0.20-1.00)
[2017-03-17] MEDS: LACTULOSE PO SCH ×3 (08:33→17:13)
[2017-03-17] MEDS: XIFAXAN PO SCH ×2 (08:34→21:10)
--- NOTE | 2017-03-17 10:20 | PROGRESS NOTE ---
DATE: 03/17/2017 TIME SEEN: 0715. SUBJECTIVE: Mr. Moralez is resting quietly in bed. He has hiccups this a.m. He denies chest pain or increased work of breathing. OBJECTIVE: Vital signs: His most recent vital signs, temperature 97.8 degrees, blood pressure 145/84, heart rate 105, respirations 17. He is on room air. Last recorded saturation 100%. He has had 2,690 in. He has had 2,200 out per Shen catheter. Labs: His most recent labs, these are still pending. They have been ordered this a.m. Previous potassium 3.9 with a BUN 58, creatinine of 2, and a previous hemoglobin of 7.8 on the 9th. PHYSICAL EXAMINATION: General: This is a 56-year-old male. He is currently resting in bed. He is in no acute distress. Skin: Warm and dry. HEENT: Normocephalic, atraumatic. Conjunctivae pale. He has RUBINA. Mucous membranes are dry. Neck: Supple. Trachea midline. No JVD. Cardiovascular: He is regular rate and rhythm. He has a positive S4. Lungs: Clear to auscultation anterior. Equal excursion. He is on room air. Abdomen: Slightly distended. NG tube is currently in place. He has Nepro infusing at a continuous rate. Tolerating this well. No tenderness noted. Genitourinary: Shen catheter is in place. Adequate urine out. Not inspected. Extremities: He continues with trace to 1+ lower extremity edema. No clubbing or cyanosis. Integumentary: The patient continues with dark scaly patches to the feet, hands, knees, and elbows. ASSESSMENT AND PLAN: 1. Acute kidney injury. Patient's BUN and creatinine are still pending this a.m. He remains stable. This has continued to improve. Adequate urine out. He continues on gentle fluid hydration. 2. Electrolytes and acid-base balance. These have been stable. 3. Anemia. This remains low but stable. 4. Cirrhosis with hepatitis C. This is being followed by GI and the primary care team. 5. Methicillin-resistant Staphylococcus aureus bacteremia with sepsis abscess to the left chest wall. This is now being followed by Dr. Vivas. No indications for changes to his medications. I would like to thank you for allowing us to follow with this patient. Dictated by JEAN MARIE Pearce for Magdiel Ramirez MD cc: JEAN MARIE Pearce MD
[2017-03-17 11:22] LABS: HEMATOCRIT 28.4 % (42.0-52.0); HEMOGLOBIN 9.3 g/dL (14.0-18.0); MCHC 32.7 g/dL (33-37); MCV 94.7 FL (81-99); MPV 12.2 FL (7.4-10.4)
[2017-03-17 12:40] LABS: AGAP 11; ALBUMIN 2.2 g/dL (3.5-5.0); BUN 47 mg/dL (8-22); CHLORIDE 110 mmol/L (98-107); COSMO 300; POTASSIUM 3.8 mmol/L (3.5-5.1); SODIUM 144 mmol/L (136-145); TCO2 23 mmol/L (25-35)
--- NOTE | 2017-03-17 16:34 | Diag Imaging Result Doc PS360 ---
MRI BRAIN W/O CONTRAST - 03/17/2017 INDICATION: altered mental status COMPARISON: Head CT 03/13/2017 FINDINGS: There is significant patient motion artifact. No restricted diffusion. No evidence of mass or hemorrhage. No significant abnormal signal. IMPRESSION: Negative exam. Electronically signed by Ernie Domínguez 03/17/2017 4:31 PM
--- NOTE | 2017-03-17 17:35 | PROGRESS NOTE ---
DATE: 03/17/2017 SUBJECTIVE: The patient is currently resting comfortably in bed. He does have an NG tube in place and tube feedings are currently being administered. The patient is more awake today as per the Nursing Staff and family. OBJECTIVE: Vital Signs: Temperature 97.2 degrees, blood pressure 140/83, heart rate 103, respirations 15, O2 saturations 100% on room air. General: This is a chronically ill-appearing, elderly male, lying in bed, in no acute distress. Head: Normocephalic, atraumatic. Heart: S1, S2 normal. Tachycardic. Lungs: Equal air entry bilaterally. No crackles, no rales. Abdomen: Positive bowel sounds. Soft, nontender, nondistended. Extremities: 3+ edema. No cyanosis. No calf tenderness. Neurologic: The patient is awake but remains confused. LABS: White blood cell count 16, hemoglobin 9.3, hematocrit 28, platelets 86, 000. INR 1.75. Sodium 144, potassium 3.8, chloride 110, CO2 23, BUN 47, creatinine 1.4, glucose 113, total bilirubin 18.9, direct bilirubin greater than 10, AST 206, ALT 102, alkaline phosphatase 136, ammonia 43, albumin 2.2. ASSESSMENT AND PLAN: 1. Hepatic encephalopathy. Slowly improving. The patient had an MRI of the brain done today that was noted to be unremarkable. The ammonia level is normal today. We will continue to monitor the patient's mental status closely. Continue on rifaximin and lactulose. 2. 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 Today is on day 4 of treatment with daptomycin. Further management as per Dr. Vivas. 3. 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 Aware. This will likely need to be evaluated with a CONCEPCION. 4. Acute kidney injury. Slowly improving. The patient's urine output is stable. 5. Hepatitis C. Aware. 6. Liver cirrhosis. Aware. 7. Generalized edema. We will start the patient on albumin infusions and monitor closely for improvement. 8. Leukocytosis. Unchanged. Continue on antibiotic therapy. 9. Coagulopathy. We will give the patient a dose of vitamin K. 10. Thrombocytopenia. The patient's platelet count is a little lower today. The patient does not have any active bleeding at this time. We will continue to monitor the platelets closely. 11. Acute hepatitis. Again the patient does have hepatitis C and liver cirrhosis. The LFTs appear to be improving slowly. 12. Severe protein calorie malnutrition. The patient is currently on tube feeds via the NG tube. 13. Disposition. The patient's mother and brother were updated about the patient's condition today. cc: Stephany Cowan MD MTDD
[2017-03-17] MEDS: ALBUMIN 25% IV SCH (18:09)
[2017-03-17] MEDS ORDERED: SODIUM CHLORIDE 0.9% INJ ONE (18:41)
[2017-03-17] MEDS ORDERED: PROTONIX IV ONE (18:41)
--- NOTE | 2017-03-17 20:14 | CONSULTATION ---
DATE OF CONSULTATION: 03/17/2017 REQUESTING PHYSICIAN: The patient seen in consultation at the request of Dr. Russell for evaluation of altered mental status. HISTORY OF PRESENT ILLNESS: This is a 56-year-old male with history of hepatitis C, hypertension and psoriasis on Humira who is admitted with a sternoclavicular MRSA septic arthritis. He has had MRSA bacteremia as well as acute kidney injury and hyperkalemia. He has had transient worsening of the liver function. He is status post debridement of the infected joint. At one point, his hemoglobin dropped from 10 to 5 and this was accompanied by transient hypotension. The mother who was at bedside says that he has had some mild mental status changes since being admitted to the hospital. She basically just describes this as he is confused, not knowing where he is. The nurse reports that his current status is much improved from overnight. He reportedly was very poorly responsive at that time. PAST MEDICAL HISTORY: Hepatitis C, gout, psoriasis, hypertension, chronic liver disease. SOCIAL HISTORY: He is a smoker. He does not currently use alcohol or illicit drugs. FAMILY HISTORY: Negative for cancer, coronary disease and diabetes. ALLERGIES: No known drug allergies. MEDICATIONS: Daptomycin, Lactulose, morphine, Zofran and rifaximin. REVIEW OF SYSTEMS: Was difficult to obtain due to his altered mental status. He is not readily answering questions. PHYSICAL EXAMINATION: Vital Signs: He has been afebrile. Blood pressure 140/ 83. There was 1 recording from 03/12/2017 of a blood pressure of 97/68. Pulse 97-103, respirations 15, 100% on room air. General exam: He is an ill appearing thin male supine in bed with hiccups. He is asleep initially. His mother is at bedside. Neck: Supple. No meningismus. Cardiovascular: He has a regular rate and rhythm. His pedal pulses are difficult to palpate. Lungs: I do not hear any coarse breath sounds that are audible. There is no increased work of breathing. Abdomen: Soft, nontender, nondistended. Extremities: With edema distally. Neurologic Exam: Mental status: He is asleep initially arouses to voice and regard. He does not readily answer questions however he is able to tell me his name and he says that his mother is at bedside. He thinks the president is Nasir Armendariz; however, he does not provide any answers to subsequent questions. He does follow simple commands inconsistently. Cranial nerves: His pupils are equal, round, reactive to light, 2.5 mm each eye, conjugate gaze. Ocular movements are full in horizontal directions. Face is symmetric with equal grimace. Tongue is midline. He blinks to threat. Motor exam: He is a thin male. His tone is normal. He has a hard time participating in the strength exam on command. He moans in pain when I manipulate the left arm and does not readily move that arm. He does withdraw in all other extremities to painful stimulus and voluntarily moves his legs against gravity at the hip. He responds to pain in all extremities. Coordination and gait are not testable. DIAGNOSTICS: Noncontrast head CT 03/13/2017 was personally reviewed. There is no acute findings. An echocardiogram was done on 03/10/2017 with an ejection fraction of 65-70%. There is some concern for intracardiac thrombus or endocarditis and a transesophageal echocardiogram was recommended. An abdominal ultrasound showed right nephrolithiasis and gallbladder sludge. Abdomen pelvis CT showed severely nodular liver compatible with cirrhosis, trace ascites, flank edema around the hips, intramuscular edema of the left thigh and nonobstructing right renal stones. LABORATORIES: Blood cultures were positive for Staph aureus. White count 16, hemoglobin 9, hematocrit 28, platelets 86,000. PT of 19, INR 1.75. Sodium 144, potassium 3.8, BUN 47 which is down from 106 on admission, his creatinine is 1.4 which is down from 4.7 on admission. Calcium is 9, phosphorus of 3.1, magnesium 2.1, bilirubin 19, direct bilirubin greater than 10, AST 206, ALT 102, these are down from admission although on 03/12 and 03/13 his LFTs significantly michael. Alkaline phosphatase 146, albumin 2.2. ASSESSMENT AND PLAN: This is a 56-year-old male with hepatitis C and liver disease, psoriasis on humira who was admitted with a sternoclavicular septic arthritis and bacteremia who has developed altered mental status during his stay. 1.Encephalopathy. Multifactorial. Most likely toxic, metabolic and infectious causes due to his underlying liver disease which had transiently worsened recently, acute kidney injury and his bacteremia. I suspect his mental status will improve as these above issues improve. One episode of hypotension. Will obtain cranial MRI for further evaluation. He has no history of seizures which makes subclinical seizures less likely although I believe a routine EEG is reasonable in this patient with encephalopathy to fully evaluate for this. The EEG will also assist us in evaluation of the encephalopathy and its severity. Agree with continuing the treatment for his underlying metabolic and infectious processes as you are doing. Thank you for this consultation. We will follow. cc: Salina Bonilla MD MTDD
[2017-03-17 20:37] LABS: HEMATOCRIT 25.8 % (42.0-52.0); HEMOGLOBIN 8.5 g/dL (14.0-18.0)
[2017-03-17 20:47] LABS: INR 1.72; PROTIME 18.7 Seconds (9.2-11.7)
[2017-03-17] MEDS: CUBICIN 500 MG in NS 100 ML IV SCH (20:59)
[2017-03-18 06:00] LABS: MANUAL DIFF NEEDED? NO
[2017-03-18 06:07] LABS: BASO% 0.6 % (0.0-0.8); EOS# 0.28 X1000 (0.0-0.7); EOS% 2.2 % (0.0-10.0); HEMATOCRIT 26.1 % (42.0-52.0); HEMOGLOBIN 8.7 g/dL (14.0-18.0); IMM GRAN# 0.04 X1000 (0.0-0.04); IMM GRAN% 0.3 % (0.0-0.5); LYMPH# 2.33 X1000 (1.2-3.4); LYMPH% 18.7 % (20.5-51.1); MCH 31.1 PG (27-31); MCHC 33.3 g/dL (33-37); MCV 93.2 FL (81-99); MONO# 1.13 X1000 (0.11-0.59); NEUT% 69.2 % (42.2-75.2); PLT 72 X1000 (130-400)
[2017-03-18 06:22] LABS: AGAP 10; ALBUMIN 2.7 g/dL (3.5-5.0); ALKALINE PHOSPHATASE 156 U/L (32-122); BUN 48 mg/dL (8-22); CALCIUM 9.3 mg/dL (8.8-10.2); CHLORIDE 113 mmol/L (98-107); COSMO 300; DIRECT BILIRUBIN > 10.00 mg/dL (0.00-0.20); GOT 170 U/L (10-34); GPT 83 U/L (10-44); POTASSIUM 3.7 mmol/L (3.5-5.1); SODIUM 144 mmol/L (136-145); TCO2 21 mmol/L (25-35)
[2017-03-18 06:26] LABS: TOTAL BILIRUBIN 18.99 mg/dL (0.20-1.00)
[2017-03-18 07:12] LABS: SED RATE 74 mm/hr (0-15)
--- NOTE | 2017-03-18 07:29 | Diag Imaging Result Doc PS360 ---
EXAM: FLAT/UPRIGHT ABD/1 VIEW CHEST INDICATION: leukocytosis TECHNIQUE: 3 views COMPARISON: 03/13/2017 FINDINGS: There is an NG tube in stable position below the diaphragm. There are unremarkable bowel gas and stool patterns. There is no obstructive bowel pattern. There is no evidence of large volume free abdominal gas. There is no evidence of organomegaly. The left-sided PICC line is stable. The lungs are grossly clear. There is no discrete pleural fluid collection or pneumothorax. The cardiomediastinal silhouette and central vasculature are grossly unremarkable. IMPRESSION: Stable chest and abdomen. Electronically signed by Neftali Claire 03/18/2017 7:27 AM
[2017-03-18] MEDS: LACTULOSE PO SCH ×3 (08:39→17:17)
[2017-03-18] MEDS: XIFAXAN PO SCH ×2 (08:40→23:42)
[2017-03-18] MEDS: ALBUMIN 25% IV SCH (08:50)
--- NOTE | 2017-03-18 09:20 | PROGRESS NOTE ---
DATE: 03/18/2017 PRESENT ILLNESS: The patient has a Staphylococcus aureus mitral valve endocarditis with a mass in the right atrium which could be a thrombus or endocarditis. The patient also has a methicillin- resistant Staphylococcus aureus urinary tract infection and sternoclavicular joint septic arthritis. MEDICATIONS: The patient is on daptomycin. His blood cultures still have not turned positive and the amount of time that the patient is on the antibiotic will be counted from the first day that the blood cultures turn negative. PHYSICAL EXAMINATION: Vital Signs: Temperature is 98.9 degrees, pulse 100, respirations 25, blood pressure 145/82. General: This is an ill-appearing, malnourished, middle-aged male. He is lethargic. He is in no acute distress. Lungs: Clear to auscultation. Cardiovascular: Regular heart rate. Abdomen: Soft and nontender. Chest: The patient's sternoclavicular wound has beefy red tissue and no pus in it. Extremities: Patient has a PICC in his left arm. The site is not swollen or draining purulent fluid. LAB AND X-RAY: There is no x-ray today. Lab so far shows a CBC with a white count of 12,490, hemoglobin 8.7, and platelet count 72,000. Creatinine is 1.4. GFR is greater than 60. I have ordered a CPK for today. Blood cultures were drawn yesterday, the results of which are pending. ASSESSMENT AND PLAN: Patient has endocarditis, urinary tract infection, and sternoclavicular joint arthritis. The patient was started on daptomycin on March 17. However, the number of days of treatment will be the day starts when the blood cultures are 1st negative. As mentioned above, the blood cultures are pending. The patient was switched to daptomycin because the patient had positive blood cultures while on vancomycin. COMORBIDITIES: Include severe liver disease, end-stage renal disease, and gastroesophageal reflux disease. cc: Clemente Vivas MD
--- NOTE | 2017-03-18 13:27 | PROGRESS NOTE ---
DATE: 03/18/2017 SUBJECTIVE: Mr. Moralez is resting quietly in bed. He has no complaints. He does continue to have the hiccups. Denies any pain. OBJECTIVE: Temperature 97.9 degrees, blood pressure 142/83, heart rate 110, respirations 16. He is on room air. Last recorded saturation is 100%. He has had 3390 in and 1575 out per Shen catheter. LABORATORY DATA: Sodium 144, potassium 3.7, chloride 113, CO2 21, BUN 48, creatinine 1.5. Glucose 116. Anion gap 10. Calcium 9.3, phosphorus 2.8. Albumin 2.7. White count 12.49, hemoglobin 8.7, hematocrit 26.1 with a platelet count of 72,000. His PT is 18.7 , INR 1.72, PTT 56. Patient has a direct bilirubin greater than 10, total bilirubin 18.99. AST 170, ALT 83, alkaline phosphatase 156. Positive for Hemoccult stools. PHYSICAL EXAMINATION: General: This is a 56-year-old male. He is currently resting in bed. He does have hiccups. He appears chronically ill with no acute distress. Skin: Warm and dry. HEENT: Normocephalic, atraumatic. Conjunctivae pale. He has RUBINA. Mucous membranes are dry. Neck: Supple. Trachea midline. No JVD. Cardiovascular: Regular rate and rhythm. Positive S4. Lungs: Clear to auscultation anteriorly. Equal excursion on room air. Abdomen: Slightly distended. Otherwise NG tube remains intact with Nepro infusing continually per orders. Tolerates this well. Positive bowel sounds. Genitourinary: Shen catheter remains in place. Adequate urine out. Not inspected. Extremities: Has trace 1+ edema to the lower extremities. Integumentary: The patient continues with dark scaly patches to the feet, hands, knees, elbows. Neurological: He is alert and oriented to person. ASSESSMENT AND PLAN: 1. Acute kidney injury. Patient's BUN and creatinine continue to improve. Creatinine is down to 1.5 with a BUN of 48. These continue to run stable. No indications for any further intervention at this time. He has adequate urine output. We will be available if needed with any changes. 2. Electrolytes and acid-base balance. These remain stable. 3. Anemia. This remains low, but stable. Followed by primary care and GI with cirrhosis with hepatitis C. 4. Positive leukocytosis with methicillin-resistant Staph aureus. This is now followed by Dr. Vivas. No indications for changes. I would like to thank you for allowing us to follow with this patient. Dictated by JEAN MARIE Pearce for Magdiel Ramirez MD cc: JEAN MARIE Pearce MD [facility]
--- NOTE | 2017-03-18 14:02 | PROGRESS NOTE ---
DATE: 03/18/2017 SUBJECTIVE: Patient denies complaints at present time. He is more awake. OBJECTIVE: Vital Signs: Temperature 98.5 degrees, pulse 107, respirations 20, blood pressure 132/73. General: Patient is more awake today. He does answer simple questions like his name. HEENT: Normocephalic, atraumatic. Abdomen: Soft, with positive bowel sounds. LABORATORY RESULTS: Hematology: White count 12.49, hemoglobin 8.7, hematocrit 26.1, MCV 93.2, platelets 72,000. Chemistry: Sodium 144, potassium 3.7, chloride 113, CO2 of 21, BUN 48, creatinine 1.5, glucose 116, total bilirubin 18.99, AST 170, ALT 83, alkaline phosphatase 156, ammonia 55. ASSESSMENT: 1. Hepatic encephalopathy. Improving. His ammonia level is normal today. Continue Xifaxan and lactulose. 2. Mitral valve endocarditis with Methicillin-resistant Staphylococcus aureus. 3. 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 4. Sternoclavicular joint arthritis, receiving antibiotics, following with Dr. Vivas. 5. Cirrhosis of the liver. 6. Hepatitis C. PLAN: Continue current management. Continue Xifaxan and lactulose. Continue management per other medical team. We will continue to follow and if and when his acute problems have resolved, we will discuss and look into treatment for hepatitis C, genotype 1A, cirrhosis of the liver. I have discussed this case with Dr. Cowan. Dr. Wheeler has also talked with Dr. Vivas. We will continue to follow the patient. Continue feedings per NG tube. We will continue to follow and further plans will be made as needed. Dictated by JEAN MARIE Chairez for Geronimo Wheeler MD cc: JEAN MARIE Smart MD
--- NOTE | 2017-03-18 15:55 | PROGRESS NOTE ---
DATE: 03/18/2017 SUBJECTIVE: The patient is a little more awake today. No acute events noted overnight. OBJECTIVE: Vital Signs: Temperature 99 degrees, blood pressure 147/80, heart rate 103, respirations 18, O2 saturations 99% on room air. General: This is an elderly chronically ill- appearing male, lying in bed, in no acute distress. Head: Normocephalic, atraumatic. Heart: S1, S2. Normal. Tachycardic. Lungs: Equal air entry bilaterally. No crackles. No rales. Abdomen: Positive bowel sounds. Soft, nontender, nondistended. Extremities: 2 to 3+ edema. Neurologic: The patient is awake, but remains confused. LABORATORY: White blood cell count 12, hemoglobin 8.7, hematocrit 26, platelets 72,000. Sodium 144, potassium 3.7, chloride 113, CO2 21, BUN 48, creatinine 1.5, glucose 116, calcium 9.3, phosphorus 2.8, total bilirubin 18.9, direct bilirubin greater than 10, AST 170 , ALT 83, alkaline phosphatase 156, ammonia 55. Albumin 2.7. ASSESSMENT AND PLAN: 1. Encephalopathy. The patient's ammonia level has normalized. However, the patient remains confused. An EEG was done this morning. We will continue to monitor the patient's mental status closely. The patient remains on rifaximin and lactulose. 2. 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 Continue on daptomycin. Today is day [address] Vivas is following. 3. 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 Aware. The patient will likely need a CONCEPCION. 4. Acute kidney injury. Stable. We will continue to monitor the patient's urine output closely. 5. Hepatitis C. Aware. The patient is currently being treated for an active infection so therapy is not an option at this time. GI is following. 6. Liver cirrhosis. Aware. 7. Coagulopathy. We will give the patient a dose of vitamin K today. 8. Thrombocytopenia. This is most likely secondary to sepsis and the patient's underlying liver disease. We will continue to monitor the platelet count closely. 9. Severe protein calorie malnutrition. The patient is more awake. We will request a swallow evaluation. For now, we will continue with tube feeds. A swallow evaluation has been ordered. 10. The plan of care was discussed with the patient's daughter, Soraya Moralez. All questions were answered. Will call [facility] in the morning to inquire about a possible transfer at the family's request. cc: Stephany Cowan MD MTDD
--- NOTE | 2017-03-18 16:27 | EEG REPORT ---
DATE: 03/17/2017 REFERRING PHYSICIAN: Dr. Salina Bonilla and Dr. Stephany Cowan. EEG: #[id number]. TISSUE SPECIALIST: Bing Lindsay. BACKGROUND INFORMATION/TECHNIQUE: A digitally recorded EEG is obtained with 1 additional channel for EKG. HISTORY OF PRESENT ILLNESS: This is a 56-year-old male with hepatitis C and liver disease, endocarditis bacteremia who is having altered mental status. An EEG is obtained to detect evidence of possible subclinical seizures as well as to evaluate the encephalopathy. MEDICATIONS: Morphine, daptomycin, and rifaximin. EEG FINDINGS: A posterior dominant alpha rhythm is notably absent. The background consists of mixed theta-delta range frequencies with admixed faster frequencies. No focal slowing is seen. No epileptiform discharges and no seizures are seen. Hyperventilation was not performed. Photic stimulation induced a normal photic driving response. No definite drowsiness patterns and no stage 2 sleep are seen. The EKG demonstrates regular R to R interval. IMPRESSION AND RECOMMENDATIONS: This is an abnormal routine EEG in the awake state due to: 1. Mild to moderate generalized slowing indicative of a mild to moderate nonspecific encephalopathy. Generalized slowing is a nonspecific finding that can be seen in processes that diffusely affect the cerebrum, including toxic metabolic, pharmacologic , infectious and post hypoxic etiologies. No epileptiform discharges and no seizures are seen on this study. This does not rule out an underlying seizure disorder. Clinical correlation is advised. cc: Salina Bonilla MD [facility]
[2017-03-18] MEDS ORDERED: THORAZINE 25 MG in NS 25 ML IV ONE ×5 (16:30→17:15)
--- NOTE | 2017-03-18 16:38 | PROGRESS NOTE ---
DATE: 03/18/2017 SUBJECTIVE: No acute events overnight. His mental status is clearing. Not yet back to baseline however. EEG and MRI were performed. OBJECTIVE: Vital signs: Are reviewed. He is afebrile, blood pressure 150/76, pulse 106, 100% on room air, respirations 18. General: He is a thin ill-appearing male, supine in bed with hiccups. Family members are at bedside. He is awake when I enter the room. HEENT: Normocephalic, atraumatic. Sclerae are icteric. Pupils are equal. Pulmonary: I do not hear any coarse breath sounds that are audible. There is no increased work of breathing. Extremities: Edematous. Skin: Is with numerous plaques throughout. Neurologic exam: Mental status. He is awake and more alert than before. Not particularly spontaneous. He answers some of my questions but not all of them. He knows who he is, who his family is, he knows where he is at. He thinks it is 2011. He does not answer further orientation questions. He follows simple commands. He knows right and left. Cranial nerves. PERRL. 2.5 mm each eye. Conjugate gaze. Ocular movements are full in the horizontal directions. Face symmetrical with equal activation. Motor exam. Thin male with normal tone. He is at least against gravity with the exception again of the left upper extremity which is painful to manipulate. He resists moving of that arm. He withdraws to stimulus in all extremities. DATA: MRI of the brain was personally reviewed. There are no acute findings. Routine EEG was personally reviewed. It showed mild to moderate generalized slowing indicative of a mild to moderate nonspecific encephalopathy. No epileptiform discharges and no seizures were seen. ASSESSMENT AND PLAN: This is a 56-year-old male with multiple medical problems here with sternoclavicular septic arthritis, bacteremia and endocarditis who had developed encephalopathy during his stay. Multifactorial global encephalopathy. Improving. Again most likely due to the toxic metabolic and infectious causes that are currently being managed and improving. I suspect that his encephalopathy will slowly improve as the above issues improve. I see that the ammonia has improved though the encephalopathy may linger beyond normalization of the ammonia. MRI and EEG did not show any other causes for the encephalopathy which is reassuring. Thank you for this consultation. We are available again if needed. cc: Salina Bonilla MD MTDD
[2017-03-18] MEDS ORDERED: VITAMIN K SUBQ ONE (20:08)
[2017-03-18] MEDS: CUBICIN 500 MG in NS 100 ML IV SCH (23:02)
[2017-03-19 06:45] LABS: MANUAL DIFF NEEDED? NO
[2017-03-19 07:26] LABS: AGAP 12; ALBUMIN 2.7 g/dL (3.5-5.0); ALKALINE PHOSPHATASE 154 U/L (32-122); BUN 49 mg/dL (8-22); CALCIUM 9.2 mg/dL (8.8-10.2); CHLORIDE 117 mmol/L (98-107); COSMO 309; GOT 172 U/L (10-34); GPT 79 U/L (10-44); POTASSIUM 3.7 mmol/L (3.5-5.1); SODIUM 149 mmol/L (136-145); TCO2 20 mmol/L (25-35); TOTAL BILIRUBIN 16.98 mg/dL (0.20-1.00); TOTAL PROTEIN 7.1 g/dL (6.3-8.3)
[2017-03-19 07:29] LABS: DIRECT BILIRUBIN > 10.00 mg/dL (0.00-0.20)
[2017-03-19 07:31] LABS: BASO% 0.6 % (0.0-0.8); EOS% 2.7 % (0.0-10.0); HEMATOCRIT 24.4 % (42.0-52.0); IMM GRAN# 0.03 X1000 (0.0-0.04); IMM GRAN% 0.3 % (0.0-0.5); LYMPH# 2.43 X1000 (1.2-3.4); MCHC 32.8 g/dL (33-37); MCV 94.6 FL (81-99); MONO# 1.15 X1000 (0.11-0.59); MONO% 10.4 % (1.7-9.3); MPV 11.8 FL (7.4-10.4); PLT 67 X1000 (130-400); RBC 2.58 XMIL (4.7-6.1)
[2017-03-19] MEDS: LACTULOSE PO SCH ×3 (09:32→16:33)
[2017-03-19] MEDS: ALBUMIN 25% IV SCH (09:32)
[2017-03-19] MEDS: XIFAXAN PO SCH ×2 (09:32→22:05)
--- NOTE | 2017-03-19 10:01 | Diag Imaging Result Doc PS360 ---
CHEST/ABD TUBE PLACEMENT - 03/19/2017 INDICATION: NG tube placement TECHNIQUE: COMPARISON: 03/18/2017 FINDINGS: There is a stable nasogastric tube coiled in the stomach. No new findings. IMPRESSION: Stable nasogastric tube in the stomach. Electronically signed by Ernie Domínguez 03/19/2017 9:59 AM
[2017-03-19 12:17] LABS: CRYOGLOBULIN SEE COMMENTS
[2017-03-19] MEDS: MORPHINE IV PRN (13:05)
[2017-03-19] MEDS ORDERED: CALMOSEPTINE OINTMENT TOP PRN (13:06)
--- NOTE | 2017-03-19 14:45 | PROGRESS NOTE ---
DATE: 03/19/2017 Mr. Moralez continues to show improvement mentally. Family reports significant progress in the last 24 hours. He has a multifactorial predominantly metabolic encephalopathy with global features, nothing focal, and no evidence of increased intracranial pressure. Since he seems clinically improved, I do not think we need to do anything further from neurologic standpoint right now. His EEG showed generalized slowing but nothing else remarkable. Brain MRI was unremarkable. Dr. Bonilla saw him for neurology evaluation earlier. No new suggestions today. cc: Felice Sosa III, MD MTDD
[2017-03-19] MEDS ORDERED: ALBUMIN 25% IV ONE (17:00)
[2017-03-19] MEDS ORDERED: LASIX IV ONE (17:00)
--- NOTE | 2017-03-19 17:24 | PROGRESS NOTE ---
DATE: 03/19/2017 SUBJECTIVE: The patient is resting comfortably in bed. He is more awake and alert today and was asking to sit up in the chair. He is having bowel movements and was able to eat a little bit of lunch today. OBJECTIVE: Vital signs: Temperature 98.6 degrees, blood pressure 125/80, heart rate 90, respirations 15, O2 saturation is 100% on room air. General: This is an elderly male, sitting up in bed, in no acute distress. Head: Normocephalic, atraumatic. Heart: S1, S2. Normal. Regular rate and rhythm. Lungs: Clear to auscultation bilaterally. No crackles. No rales. Abdomen: Positive bowel sounds. Soft, nontender, nondistended. Extremities : There is 3+ edema. No cyanosis. No calf tenderness. Neurologic: The patient is awake and alert. She is able to move all 4 extremities. LABS: White blood cell count 11, hemoglobin 8, hematocrit 24, platelets 67, 000. Sodium 139, potassium 3.7, chloride 117, CO2 20, BUN 49, creatinine 1.5, glucose 102, total bilirubin 16.9, AST 172, ALT 79, alkaline phosphatase 154 ASSESSMENT AND PLAN: 1. Metabolic encephalopathy. This appears to be improving slowly. The patient is more awake and alert today. We will continue to monitor closely. 2. Hepatic encephalopathy. Continue on rifaximin and lactulose. The patient is having regular bowel movements. 3. 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 Continue on daptomycin. Today is day [address] Vivas is following. 4. 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 Aware. 5. Acute kidney injury on chronic kidney disease. Stable. 6. Left sternoclavicular abscess status post incision and drainage. Continue on antibiotic therapy. 7. Liver cirrhosis. Aware. 8. Acute on chronic hepatitis C. Aware. 9. Coagulopathy. Stable. 10. Thrombocytopenia. We will continue to monitor the patient's platelet count closely. 11. Severe protein calorie malnutrition. The patient passed the swallow evaluation today. He has been started on a solid diet. We will continue to monitor closely. We may be able to discontinue the tube feeds once the patient is eating more. 12. Disposition. I called [facility] and spoke to the on-call physician on the medical service, who declined to accept the patient in transfer because the patient is improving. This was discussed with the patient's daughter, Soraya Moralez, and all questions were answered. We will consult social work nurse to assist with LTAC replacement since the patient will require at least 6 weeks of IV antibiotic therapy. cc: Stephany Cowan MD MTDD
--- NOTE | 2017-03-19 19:50 | PROGRESS NOTE ---
DATE: 03/19/2017 PRESENT ILLNESS: The patient has Staph aureus mitral valve endocarditis with the mass in the right atrium which could be a thrombus or endocarditis. He has methicillin-resistant Staph aureus urinary tract infection and sternoclavicular joint septic arthritis. The patient has elevated liver function tests. It could be that the Staph infection is in the liver as well. The patient also has hepatitis C. MEDICATIONS: The patient is on daptomycin. PHYSICAL EXAMINATION: Vital Signs: Temperature is 98.6, pulse 90, respirations 15, blood pressure 125/80. Generally: This is an ill-appearing malnourished middle-aged male. He is lethargic, but was arousable tonight. Lungs: Clear to auscultation. Cardiovascular: Regular heart rate. Abdomen: Soft and nontender. Chest: The patient's left-sided sternoclavicular wound has beefy, red tissue. There is no pus or odor from it. Extremities: The patient has a PICC in his left arm. That site is not swollen or draining. Integument: Patient has severely crusted skin due to his underlying psoriasis. LABORATORY AND X-RAY: Repeat blood cultures are growing gram positive cocci. IgG and IgA are higher than normal. CBC shows a white count of 11,070, hemoglobin 8 and platelet count 67,000. Creatinine is 1.5. GFR is 59. AST is 172. ASSESSMENT AND PLAN: 1. The patient has endocarditis, urinary tract infection, sternoclavicular joint arthritis, possible liver involvement as well. I have added rifampin to daptomycin. 2. Comorbidities include severe liver disease, end-stage renal disease, and gastroesophageal reflux disease. cc: Clemente Vivas MD
[2017-03-19] MEDS ORDERED: RIFAMPIN PO SCH (20:00)
[2017-03-19] MEDS ORDERED: LASIX ONE (21:48)
[2017-03-19] MEDS: NON-FORMULARY BULK MED PO SCH (22:01)
[2017-03-19] MEDS: CUBICIN 500 MG in NS 100 ML IV SCH (22:01)
[2017-03-20 07:18] LABS: BASO% 0.4 % (0.0-0.8); EOS# 0.31 X1000 (0.0-0.7); EOS% 3.4 % (0.0-10.0); HEMATOCRIT 24.1 % (42.0-52.0); HEMOGLOBIN 7.8 g/dL (14.0-18.0); IMM GRAN# 0.02 X1000 (0.0-0.04); IMM GRAN% 0.2 % (0.0-0.5); LYMPH# 2.22 X1000 (1.2-3.4); LYMPH% 24.4 % (20.5-51.1); MANUAL DIFF NEEDED? YES; MCH 30.8 PG (27-31); MCHC 32.4 g/dL (33-37); MCV 95.3 FL (81-99); MONO% 9.9 % (1.7-9.3); MPV 13.1 FL (7.4-10.4); NEUT% 61.7 % (42.2-75.2); PLT 61 X1000 (130-400); RBC 2.53 XMIL (4.7-6.1)
[2017-03-20 07:21] LABS: INR 1.66
[2017-03-20 07:39] LABS: AGAP 12; ALBUMIN 3.3 g/dL (3.5-5.0); BUN 45 mg/dL (8-22); CALCIUM 9.2 mg/dL (8.8-10.2); CHLORIDE 108 mmol/L (98-107); COSMO 293; POTASSIUM 3.6 mmol/L (3.5-5.1); SODIUM 141 mmol/L (136-145); TCO2 21 mmol/L (25-35)
[2017-03-20 07:41] LABS: LYMPHS 24 % (21-51)
[2017-03-20] MEDS ORDERED: LASIX IV ONE (08:14)
[2017-03-20] MEDS: XIFAXAN PO SCH ×2 (09:42→23:02)
[2017-03-20] MEDS: LACTULOSE PO SCH ×3 (09:43→17:58)
[2017-03-20] MEDS: NON-FORMULARY BULK MED PO SCH (09:45)
[2017-03-20] MEDS ORDERED: ALBUMIN 25% IV ONE (13:58)
[2017-03-20] MEDS: MORPHINE IV PRN ×2 (18:05→23:02)
[2017-03-21] MEDS: CUBICIN 500 MG in NS 100 ML IV SCH ×2 (00:27→22:59)
[2017-03-21] MEDS: MORPHINE IV PRN ×4 (03:30→22:59)
--- NOTE | 2017-03-21 04:08 | PROGRESS NOTE ---
DATE: 03/20/2017 SUBJECTIVE: The patient is resting comfortably. He has been more awake and alert and able to eat. OBJECTIVE: Vital Signs: Temperature 98, blood pressure 169/97, heart rate 97, respirations 14, O2 saturations 100% on 2 L nasal cannula. General: This is a chronically ill-appearing, elderly male, lying in bed, in no acute distress. Head: Normocephalic, atraumatic. Heart: S1, S2. Normal. Tachycardic. Lungs: Equal air entry bilaterally. No crackles, no rales. Abdomen: Positive bowel sounds. Soft, nontender, nondistended. Extremities: No edema. No cyanosis. No calf tenderness. Neurologic: The patient is awake and alert. LABORATORY STUDIES: White blood cell count 9.1, hemoglobin 7.8, hematocrit 24, platelets 161,000. INR 1.6. Sodium 141, potassium 3.6, chloride 108, CO2 21, BUN 45, creatinine 1.4, glucose 106. Albumin 3.3. ASSESSMENT AND PLAN: 1. Metabolic encephalopathy. Improved. 2. 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 Continue on daptomycin. Today is day 7 of therapy. Rifaximin was added yesterday. 3. 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 Aware. 4. Acute kidney injury on chronic kidney disease. Stable. 5. Volume overload. Continue with Lasix and albumin infusions. 6. Left sternoclavicular abscess, status post incision and drainage, secondary to Methicillin- resistant Staphylococcus aureus. Continue on antibiotic therapy. 7. Liver cirrhosis. Aware. 8. Acute on chronic hepatitis C. Aware. 9. Coagulopathy. Stable. 10. Thrombocytopenia. We will continue to monitor this closely. 11. Severe protein calorie malnutrition. Will continue with tube feeds and continue to allow the patient to eat food as well. 12. Disposition. We are currently pursuing LTAC placement for the patient. [facility] is making the arrangements. cc: Stephany Cowan MD
[2017-03-21 08:04] LABS: BASO% 0.8 % (0.0-0.8); EOS% 2.4 % (0.0-10.0); HEMATOCRIT 25.1 % (42.0-52.0); HEMOGLOBIN 8.3 g/dL (14.0-18.0); LYMPH# 1.93 X1000 (1.2-3.4); LYMPH% 23.2 % (20.5-51.1); MANUAL DIFF NEEDED? NO; MCH 31.3 PG (27-31); MCHC 33.1 g/dL (33-37); MCV 94.7 FL (81-99); MONO# 0.81 X1000 (0.11-0.59); MONO% 9.7 % (1.7-9.3); MPV 12.9 FL (7.4-10.4); NEUT% 63.9 % (42.2-75.2); PLT 66 X1000 (130-400); RBC 2.65 XMIL (4.7-6.1)
[2017-03-21 09:13] LABS: AGAP 13; ALBUMIN 3.3 g/dL (3.5-5.0); ALKALINE PHOSPHATASE 132 U/L (32-122); BUN 41 mg/dL (8-22); CALCIUM 8.7 mg/dL (8.8-10.2); CHLORIDE 103 mmol/L (98-107); COSMO 283; GOT 162 U/L (10-34); GPT 71 U/L (10-44); POTASSIUM 3.8 mmol/L (3.5-5.1); SODIUM 136 mmol/L (136-145); TCO2 20 mmol/L (25-35); TOTAL PROTEIN 6.9 g/dL (6.3-8.3)
[2017-03-21 09:36] LABS: DIRECT BILIRUBIN > 10.00 mg/dL (0.00-0.20); TOTAL BILIRUBIN 20.15 mg/dL (0.20-1.00)
[2017-03-21] MEDS: XIFAXAN PO SCH ×2 (10:17→23:00)
[2017-03-21] MEDS: LACTULOSE PO SCH ×3 (10:18→18:06)
[2017-03-21] MEDS: NON-FORMULARY BULK MED PO SCH (10:22)
[2017-03-21] MEDS ORDERED: ALBUMIN 25% IV ONE (15:48)
[2017-03-21] MEDS ORDERED: LASIX IV ONE (15:48)
--- NOTE | 2017-03-21 16:48 | PROGRESS NOTE ---
DATE: 03/21/2017 PRESENT ILLNESS: The patient has methicillin-resistant Staph aureus mitral valve endocarditis, with a mass in the right atrium which could be a thrombus or endocarditis. He also has a methicillin-resistant Staph aureus septic sternoclavicular joint arthritis. MEDICATIONS: The patient is on a combination of daptomycin and rifampin. PHYSICAL EXAMINATION: Vital Signs: Temperature is 99.2 degrees, pulse 97, respiration is 15, blood pressure 162/86. Generally: This is a chronically ill-appearing, malnourished, middle-aged male. He is more arousable tonight than he has been previously. Chest: The patient's wound is still open, it does have beefy red tissue. Lungs: Clear to auscultation. Cardiovascular: Regular heart rate. Abdomen: Soft and nontender. Extremities: Patient has a PICC in his left arm. The site is not swollen or draining pus. Integument: Patient has severely crusted skin lesions due to psoriasis. LABORATORY AND X-RAY: The patient's creatinine is 1.2. GFR is greater than 60. The patient's CBC shows a white count of 8330, hemoglobin of 8.3, and a platelet count of 66,000. Bilirubin is 20.15, AST is 162. There is no new x-ray today. ASSESSMENT AND PLAN: The patient has endocarditis, sternoclavicular joint arthritis, and an atrium with endocarditis or a mass, all due to infection by methicillin-resistant Staphylococcus aureus. The plan is to continue the antibiotics and to remove the patient's PICC. I am then going to repeat the patient's blood cultures and obtain a CK 2 days from now. COMORBIDITIES: Include severe liver disease, end-stage renal disease, and gastroesophageal reflux disease. cc: Clemente Vivas MD
--- NOTE | 2017-03-21 17:22 | PROGRESS NOTE ---
DATE: 03/21/2017 SUBJECTIVE: The patient is resting comfortably. He does awaken and talk on occasion but then he falls asleep pretty quickly. OBJECTIVE: Vital Signs: Temperature 99 degrees, blood pressure 162/86, heart rate 97, respirations 15. O2 saturations 99% on room air. General: This is an elderly male, lying in bed, in no acute distress. Head: Normocephalic, atraumatic. Heart: S1, S2. Normal. Tachycardic. Lungs: Equal air entry bilaterally. No crackles. No rales. Abdomen: Positive bowel sounds. Soft, nontender, distended. Extremities: 2+ edema. No cyanosis. No calf tenderness. Neurologic: The patient is lethargic. He is able to move all 4 extremities. LABS: White blood cell count 8.3, hemoglobin 8.3, hematocrit 25, platelets 66, 000. Sodium 136, potassium 3.8, chloride 103, CO2 20. BUN 41, creatinine 1.2, glucose 115. Total bilirubin 20, direct bilirubin greater than 10. AST 162, ALT 71, alkaline phosphatase 132. ASSESSMENT AND PLAN:. 1. Hepatic encephalopathy. Continue on lactulose and rifaximin. 2. 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 Continue on daptomycin. Today is day 8 of therapy. 3. 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 Aware. 4. Volume overload. Continue with Lasix and albumin infusions. 5. Left sternoclavicular abscess status post incision and drainage. Continue with antibiotic therapy. 6. Liver cirrhosis. Aware. 7. Acute on chronic hepatitis C. The bilirubin is a little bit higher today. Continue to monitor. 8. Thrombocytopenia. Stable. 9. Coagulopathy. Stable. 10. Severe protein calorie malnutrition. Continue with tube feeds. 11. Bilateral pleural effusions.Stable. 12. SHELLEY on CKD. The creatinine is stable. Good urine output. 13. Disposition. counseling services manager is working on getting the patient transferred to an LTAC. The plan of care and the patient's condition was updated with the patient's Power of [employer], Soraya Moralez. cc: Stephany Cowan MD MTDD
[2017-03-22] MEDS: MORPHINE IV PRN ×2 (03:30→11:35)
[2017-03-22] MEDS: ZOFRAN IV PRN ×2 (04:30→08:11)
[2017-03-22 06:50] LABS: BASO% 0.5 % (0.0-0.8); EOS# 0.06 X1000 (0.0-0.7); EOS% 0.6 % (0.0-10.0); HEMATOCRIT 26.5 % (42.0-52.0); HEMOGLOBIN 8.9 g/dL (14.0-18.0); LYMPH% 16.8 % (20.5-51.1); MANUAL DIFF NEEDED? NO; MCH 32.2 PG (27-31); MCHC 33.6 g/dL (33-37); MONO# 1.16 X1000 (0.11-0.59); MONO% 12.2 % (1.7-9.3); MPV 12.5 FL (7.4-10.4); NEUT% 69.9 % (42.2-75.2); PLT 81 X1000 (130-400); RBC 2.76 XMIL (4.7-6.1)
[2017-03-22 07:00] LABS: ALBUMIN 4.1 g/dL (3.5-5.0); CALCIUM 10.1 mg/dL (8.8-10.2); POTASSIUM 4.4 mmol/L (3.5-5.1)
[2017-03-22 07:01] LABS: ALKALINE PHOSPHATASE 108 U/L (32-122); GOT 214 U/L (10-34); GPT 86 U/L (10-44); TOTAL PROTEIN 8.3 g/dL (6.3-8.3)
[2017-03-22 07:02] LABS: INR 1.5; PROTIME 16.2 Seconds (9.2-11.7)
[2017-03-22 07:07] LABS: DIRECT BILIRUBIN > 10.00 mg/dL (0.00-0.20); TOTAL BILIRUBIN 27.84 mg/dL (0.20-1.00)
[2017-03-22] MEDS ORDERED: LABETALOL IV PRN (07:07)
[2017-03-22] MEDS: NON-FORMULARY BULK MED PO SCH (08:14)
[2017-03-22] MEDS: LACTULOSE PO SCH ×2 (08:14→13:00)
[2017-03-22] MEDS: XIFAXAN PO SCH (08:15)
--- NOTE | 2017-03-22 08:32 | Diag Imaging Result Doc PS360 ---
EXAM: FLAT/UPRIGHT ABD/1 VIEW CHEST HISTORY: Abdominal Distention, High Residuals TECHNIQUE: Three views COMPARISON: 03/19/2017 FINDINGS: Poor inspiratory effort. There are increased interstitial markings throughout both lungs. The heart is mildly prominent. No free air beneath the diaphragm. There are multiple distended loops of bowel in the abdomen filled with air. No organomegaly. A nasogastric tube overlies the esophagus and stomach. IMPRESSION: 1.Poor inspiratory effort with pulmonary edema 2.Small bowel obstruction Electronically signed by Kiran Lizarraga 03/22/2017 8:29 AM
[2017-03-22] MEDS ORDERED: TOPROL XL PO SCH (09:00)
--- NOTE | 2017-03-22 12:20 | Diag Imaging Result Doc PS360 ---
EXAM: THORAX/ABDOMEN/PELVIS W/O CONT HISTORY: obstruction TECHNIQUE: Dose reduction protocol COMPARISON: Abdomen and pelvis is compared to 03/12/2017. Chest is compared to 03/08/2017. FINDINGS: Chest: There is no longer a supraclavicular mass in the upper mid left chest. There appears to be an open defect which is likely postsurgical. Interval development of basilar infiltrates and/or atelectasis. There are small bilateral pleural effusions. The one on the right is larger than one on the left. One on the right measures 2.0 cm posteriorly and inferiorly in the midline. Heart is not enlarged. Mild vascular distention. Mild emphysematous changes. Abdomen and pelvis: Mild interval increase in the abdominal and pelvic ascites. Interval development of multiple dilated small bowel loops distended with air and debris. The colon is not distended. A nasogastric tube enters the stomach. A Shen catheter has the urinary bladder decompressed. No focal hepatic, splenic, or pancreatic abnormality identified on this noncontrasted exam. Tiny nonobstructing right renal stone. No left renal stone. No hydronephrosis. No aortic aneurysm. No calcified stones within the gallbladder. IMPRESSION: Chest: 1. Interval surgery with removal of the left anterior chest wall lesion. 2. Development of bibasilar infiltrates and/or atelectasis with small pleural effusions as well as pulmonary edema. Abdomen and pelvis: 1. Interval development of a small bowel obstruction. 2. There is a small amount of abdominal and pelvic ascites which has slightly increased compared to the prior exam. Electronically signed by Kiran Lizarraga 03/22/2017 12:18 PM
[2017-03-22] MEDS ORDERED: OFIRMEV 1000 MG/ISOTONIC SOLN 1,000 MG/100 ML BOTTLE IV ONE (14:00)
[2017-03-22 14:37] LABS: BILIRUBIN URINE MODERATE (NEGATIVE); BLOOD URINE MODERATE (NEGATIVE); COLOR YELLOW; GLUCOSE URINE NEGATIVE (NEGATIVE); LEUKOCYTES URINE NEGATIVE (NEGATIVE); NITRITE URINE NEGATIVE (NEGATIVE); PH URINE 5.5; PROTEIN URINE TRACE mg/dL (NEGATIVE); SP GRAVITY URINE 1.017; TURBIDITY URINE CLEAR (CLEAR); URINE SOURCE CATH; UROBILINOGEN URINE NORMAL (NORMAL)
[2017-03-22 14:49] LABS: UR EPITHELIAL CELLS <10 /HPF (<10); URINE BACTERIA NEGATIVE /HPF; URINE MICRO REVIEW NEEDED? YES; URINE WBC <10 /HPF (<10)
[2017-03-22 15:00] LABS: URINE CASTS GRANULAR PRESENT
[2017-03-22 15:43] LABS: UR PROT RANDOM 50.2 mg/dL
--- NOTE | 2017-03-22 16:02 | PROGRESS NOTE ---
DATE: 03/22/2017 SUBJECTIVE: The patient is known to Dr. Joaquin. He drained a subcutaneous abscess of the left chest wall earlier this month. He has been following for his wound care. Patient does have hepatitis C and cirrhosis and subsequently had decline and increase in nausea and vomiting. Given this, an abdominal film was ordered and a CT scan was done which showed potential for bowel obstruction. He does have a worsening clinical picture and overall vital signs are worsening. OBJECTIVE: Vital Signs: Patient is currently febrile; temperature 101.5. Heart rate is in the 1 teens. Respiratory rate in the mid 30s. Blood pressure 156/95. General: Patient opens his eyes but does not communicate to me. He nods seemingly appropriately. Cardiovascular: Mildly tachycardic. Lungs tachypneic. Abdomen distended but soft. Difficult exam because I cannot evaluate the patient for his response for any kind of peritoneal signs but I cannot get a significant sign that he is hurting. LABORATORY: White blood cell count 9. Hematocrit 26. Platelet count 81,000. INR 1.5. Bilirubin is 27 which is worsening. AST, ALT are also increasing. CT scan independently reviewed and radiology report reviewed and noted above. ASSESSMENT AND PLAN: A 56-year-old -[place] male with worsening clinical picture. Potential for sepsis. 1. Worsening clinical picture. Potential for sepsis. We will discuss with Dr. Espinal with Gastroenterology and Dr. Cowan with the hospitalist. He may need to be transferred down to the ICU. He has had multiple episodes of positive blood cultures and he has mitral valve endocarditis. I am concerned that he might have a clinical deterioration either from this process or from his cirrhosis. It is a concern. At this point, I do not see any reason for surgical intervention. Would continue to support him. He may need more aggressive therapy in the ICU. cc: Naun Ramos MD [facility]
--- NOTE | 2017-03-22 16:19 | Diag Imaging Result Doc PS360 ---
EXAM: US ABDOMEN-COMPLETE HISTORY: elevated lfts/ascites TECHNIQUE: COMPARISON: Compared to CT performed earlier in the day FINDINGS: Normal pancreas. No aneurysmal dilatation to the abdominal aorta. Normal inferior vena cava. There is a small amount of fluid about the liver. The liver has mild fatty infiltration. No hydronephrosis to the right kidney. Mild increased renal echotexture. No stones within the gallbladder. Common bile duct measures 4 mm. No left-sided hydronephrosis. Spleen is not enlarged. There is a small amount of fluid in the left lower abdomen. IMPRESSION: 1.Fatty infiltration of the liver 2.Mild increased renal echotexture which can be seen with medical renal disease 3.There is a small amount of ascites about the liver and in the lower left quadrant. Electronically signed by Kiran Lizarraga 03/22/2017 4:17 PM
--- NOTE | 2017-03-22 16:25 | PROGRESS NOTE ---
DATE: 03/22/2017 SUBJECTIVE: The patient is a little more lethargic today. He has been having persistent nausea and vomiting since early this morning and his tube feeds have been discontinued. OBJECTIVE: Vital Signs: Temperature 101.5 degrees, blood pressure 156/95, heart rate 118, respirations 28, O2 saturations 99% on room air. General: This is a chronically ill-appearing, elderly male, lying in bed, in no acute distress. Head: Normocephalic, atraumatic. Heart: S1, S2. Normal. Tachycardic. Lungs: Coarse breath sounds bilaterally. No crackles. No rales. Abdomen: Distended, hypoactive bowel sounds. Extremities: 2+ edema. No cyanosis. No calf tenderness. Neurologic: The patient is lethargic. He does awaken at times. LABS: White blood cell count 9.5, hemoglobin 8.9, hematocrit 26, platelets 81, 000. INR 1.5. Sodium 141, potassium 4.4, chloride 101, CO2 20, BUN 49, creatinine 1.7. Glucose 99. Phosphorus 4.6, total bilirubin 27.8. Direct bilirubin greater than 10. AST 214, ALT 86, alkaline phosphatase 103, ammonia 38. CT of the chest, abdomen, and pelvis: Basilar infiltrates and pulmonary edema. Small bowel obstruction. Abdominal and pelvic ascites. ASSESSMENT AND PLAN: 1. Sepsis secondary to MRSA bacteremia and endocarditis. The patient is tachycardic and febrile. Will repeat blood and urine cultures. Continue on daptomycin. 2. MRSA endocarditis. Continue on daptomycin. 3. Hepatic encephalopathy. The patient's ammonia level has been stable for the last 5 days. We will continue to monitor this closely. 4. Acute hepatitis C. The patient's bilirubin is markedly elevated today in relation to yesterday. I have discussed this with Dr. Espinal and we will order an abdominal ultrasound. 5. Thrombocytopenia. Stable. 6. 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 Aware. 7. Left sternoclavicular abscess status post incision and drainage. Stable. 8. Liver cirrhosis. Aware. 9. Acute kidney injury on chronic kidney disease. The patient's creatinine is a little bit elevated today. We will check urine studies. The patient continues to have a very good urine output. 10. Coagulopathy. Stable. 11. Small bowel obstruction. The patient's tube feeds have been discontinued and the NG tube has been hooked up to suction. General Surgery has been consulted for further recommendations. 12. The patient is septic. He will be transferred to the ICU for closer monitoring. cc: Stephany Cowan MD MTDD
--- NOTE | 2017-03-22 17:55 | CONSULTATION ---
DATE OF CONSULTATION: 03/22/2017 PRIMARY CARE PROVIDER: Tyrell Dang M.D. PRIMARY GROCERY CLERK STOCKING: Geronimo Wheeler M.D. PRIMARY HOSPITALIST: Stephany Cowan M.D. We were asked to see the patient today due to abrupt rise in his total bilirubin and clinical decline. HISTORY OF PRESENT ILLNESS: The patient is a 56-year-old male who was admitted with a sternal abscess that was drained. His blood cultures have been persistently positive for MRSA. From a GI perspective, he has had hepatic encephalopathy and has a history of chronic active hepatitis C which has not been treated. He has a hepatitis C RNA level that is in excess of 7 million. His clinical course has been remarkable for persistent bacteremia and possible endocarditis. Overnight he has been febrile and tachypneic. His T-max is 101.6 degrees. The patient was examined in conjunction with Dr. Ramos earlier today. He is minimally responsive to verbal communication but responds to sternal rub. He was tachypneic and tachycardic on our exam. He was examined in Radiology after undergoing an abdominal ultrasound. OBJECTIVE DATA: Reveals blood pressure 124/74, respirations on our exam were 32 -36. His heart rate was 111 to 114. At times his heart rate was as high as 120. His abdomen is distended with hypoactive bowel sounds. His extremities are negative for cyanosis, clubbing, or edema. His skin is remarkable for hypertrophic changes suggestive of possible psoriasis. Objective data remarkable for CT scan obtained earlier today that suggests the onset of small bowel obstruction. In addition, he was found to have new ascites in the abdomen and pelvis which is increase compared to his previous exam but according but per Dr. Lizarraga was insufficient for paracentesis. He also has development of bibasilar infiltrates and/or atelectasis with small pleural effusions and pulmonary edema. His laboratory tests reveal a hemoglobin of 8.9 with hematocrit of 26.5 and a white count of 9.52. He has 81,000 platelets. His PT is 16.2 with an INR 1.50. Sodium is 141, potassium 4.4, chloride 101, CO2 20, BUN 49, creatinine 1.7 with a glucose of 90. Calcium is 10.1, phosphorus 4.6, total bilirubin 27.84, direct bilirubin greater than 10, AST 214, ALT 86, alkaline phosphatase 108, ammonia 38, total protein 8.3 and albumin 4.0. IMPRESSION: 1. Probable sepsis. 2. Active hepatitis C. 3. Methicillin-resistant Staphylococcus aureus. 4. Cirrhosis. 5. Ascites. 6. Tachypnea. 7. Tachycardia. 8. Anemia. 9. Acute on chronic renal failure. 10. Hypercalcemia. 11. Hyperphosphatemia. 12. Abnormal liver function tests. RECOMMENDATION: 1. From a GI perspective, the patient appears to have a slight decompensation in liver disease. I strongly suspect that this is related to sepsis as opposed to primary liver disease. His abdominal ultrasound shows no evidence of hepatic ductal dilation or pancreatic ductal dilation. He does have liver disease and medical renal disease but there has been no acute decompensation. There is evidence of ascites but the volume is insufficient to tap according to Dr. Lizarraga. 2. I recommend that the patient be transferred to the ICU for management of his MRSA bacteremia as he is febrile, tachycardic and shows failure to thrive. 3. I agree with consulting surgery for assistance in managing his small bowel obstruction. Continue supportive care with nasogastric tube decompression. 4. Begin Nexium 40 mg IV q.12 hours. 5. He will likely need broad-spectrum antibiotics in light of his clinical decline. 6. If his ascites increases, we can consider an abdominal paracentesis. I would empirically cover for the possibility of bacterial peritonitis. 7. Additional recommendations to follow based on his clinical course. My recommendations were discussed with Dr. Ivan Ramos and Dr. Stephany Cowan. cc: MD Tg Minaya MD [facility]
[2017-03-22] MEDS: NEXIUM IV SCH (18:40)
[2017-03-22] MEDS: CUBICIN 500 MG in NS 100 ML IV SCH (20:00)
[2017-03-22] MEDS: MERREM 500 MG in NS 50 ML IV SCH (21:00)
[2017-03-23] MEDS: NEXIUM IV SCH ×2 (05:18→19:23)
[2017-03-23 05:59] LABS: BLOOD TYPE ARTERIAL; DRAW SITE R BRACHIAL; METHB 0.9 % (0.0-1.5); PO2(98.6) 141 mmHg (60-100); SAMPLE BLOOD; SAO2 100.8 % (95.0-100.0); THB 8.5 g/dL (11.5-17.4)
[2017-03-23 06:00] LABS: pH(98.6) 7.65 (7.35-7.45)
[2017-03-23 06:01] LABS: MODALITY ROOM AIR; PCO2(98.6) 18 mmHg (35-45)
--- NOTE | 2017-03-23 06:55 | PROGRESS NOTE ---
DATE: 03/23/2017 SUBJECTIVE: The patient was transferred to the ICU. He denies any kind of abdominal pain at this time. His respiratory status has become less tachypneic but his ABG has worsened. OBJECTIVE: Vital Signs: Patient is currently afebrile. Temperature 99.9, his T-max is 101.6, pulse is in the low 100s, respiratory rate is in the high 20s, blood pressure is 117/68, O2 saturation 97%. General Examination: An ill-appearing, male. Looks older than his stated age. Does not communicate with me but he seems to nod appropriately. Cardiovascular: Mildly tachycardic. Lungs: Less tachypneic than yesterday. Abdomen: Soft but distended. Difficult exam but I did not get any signs of peritonitis. Laboratories: From yesterday, ABG reviewed. From today, patient does have what appears to be a respiratory alkalosis with a pH of 7.65 with a pCO2 of 18. ASSESSMENT/PLAN: A 56-year-old, male with worsening clinical picture, potential for sepsis. Worsening clinical picture. At this time, patient does continue to have some decline. He is in the intensive care unit. His respiratory status is declining. He has a respiratory alkalosis. He is less tachypneic than he was which might be an attempt to compensate but he does not seem to have renal ability to compensate. At this time, his nasogastric tube is not functioning very well. It has too thick of secretions to be able to suction out and the patient cannot tolerate the irrigation so I am unsure if the nasogastric tube is accomplishing anything. Regardless, he is a poor surgical candidate and I would just support him clinically at this point. cc: MD ASHLI Tadeo
[2017-03-23 07:00] LABS: BASO% 0.6 % (0.0-0.8); EOS# 0.19 X1000 (0.0-0.7); HEMOGLOBIN 8.5 g/dL (14.0-18.0); IMM GRAN# 0.02 X1000 (0.0-0.04); IMM GRAN% 0.2 % (0.0-0.5); LYMPH% 19.5 % (20.5-51.1); MANUAL DIFF NEEDED? YES; MCH 32.7 PG (27-31); MCHC 32.7 g/dL (33-37); MONO# 1.29 X1000 (0.11-0.59); MONO% 13.2 % (1.7-9.3); MPV 12.8 FL (7.4-10.4); NEUT% 64.5 % (42.2-75.2); PLT 82 X1000 (130-400)
[2017-03-23 07:07] LABS: INR 1.6; PROTIME 17.3 Seconds (9.2-11.7)
[2017-03-23 07:18] LABS: ALBUMIN 3.6 g/dL (3.5-5.0); CALCIUM 9.6 mg/dL (8.8-10.2); POTASSIUM 4.6 mmol/L (3.5-5.1); TOTAL PROTEIN 7.5 g/dL (6.3-8.3)
[2017-03-23 07:29] LABS: TOTAL BILIRUBIN 28.06 mg/dL (0.20-1.00)
[2017-03-23] MEDS ORDERED: VITAMIN K 10 MG in NS 50 ML IV ONE (07:59)
--- NOTE | 2017-03-23 09:07 | ECHO REPORT ---
ORDER DATE: 03/22/2017 INTERPRETING PHYSICIAN: Dr. Rosado REQUESTING PHYSICIAN: CLINICAL INDICATIONS: This is a 56-year-old male, study requested for evaluation of possible endocardial vegetation. Previous study on 03/10/2017, which is 10 days prior, suggested possible tricuspid valve vegetation. The study was done using agitated saline and also Definity for enhancement of the right-sided chambers and also left-sided chambers. M-MODE MEASUREMENTS: Right ventricle: cm. Left ventricle end diastole: cm. Left ventricle end systole: cm. Posterior wall: cm. Interventricular septum: cm. Left atrium: cm. Aortic root: cm. SUMMARY OF 2-DIMENSIONAL IMAGIN. The left ventricle shows excellent contractility. Ejection fraction is 65%. 2. Right ventricle is normal in size and function. 3. Pulmonic valve looks normal. There is no evidence of vegetation attached to this valve. 4. The aortic valve has 3 cusps. It also seems to be free of any vegetation. 5. The mitral valve appears to be structurally intact. I do not see any evidence of vegetation attached to the mitral valve. 6. The atria are not dilated. 7. The tricuspid valve appears to be free of any abnormality. There is no evidence of any large vegetation attached to the tricuspid valve. 8. The eustachian valve is a large structure which is probably a normal variant. I do not see any soft mass attached to this structure to suspect vegetation. CONCLUSIONS: In summary, this limited echocardiographic study shows excellent left and right ventricular function, normal size of the atria, no pericardial effusion and no convincing evidence of endocardial vegetation. The finding of a prominent eustachian valve is a normal variant. If the index of suspicion for the presence of endocarditis is very high, then a transesophageal echocardiogram could be done; however, at this point in time, there is no indication of any structural failure of any of the heart valves of this patient. With an agent like MRSA, by now, given the persistent bacteremia, I would have expected to see evidence of tissue destruction either at the Tricuspid valve level or the Eustachian valve or any of the other valves and that is not the case. Consider pursuing investigation of any other source of ongoing bacteremia, i.e. ongoing septic osteomyelitis, psoas abscess, epidural abscess ,etc. We would be very happy to arrange for a transesophageal echocardiogram when the benefit clearly outweighs the risk. cc: José Miguel Rosado MD [facility]
[2017-03-23 09:15] LABS: BANDS 1 % (0-1); EOS 3 % (1-10); LYMPHS 18 % (21-51); MONO 10 % (1-9)
[2017-03-23 09:19] LABS: TARGET CELLS OCCASIONAL
[2017-03-23 09:20] LABS: POLYCHROM OCCASIONAL
[2017-03-23] MEDS: 1/2 NS 1,000 ML IV SCH ×2 (09:54→20:23)
[2017-03-23] MEDS: MERREM 500 MG in NS 50 ML IV SCH ×2 (09:59→20:25)
--- NOTE | 2017-03-23 10:40 | Diag Imaging Result Doc PS360 ---
EXAM: ABDOMEN FLAT/UPRIGHT HISTORY: obstruction TECHNIQUE: Portable upright AP chest abdomen COMPARISON: 03/22/2017 FINDINGS: There is a nasogastric tube overlying the esophagus and stomach. No free air beneath the diaphragm. There are multiple air distended loops of bowel in the abdomen. The lower lungs are clear. IMPRESSION: Nasogastric tube enters the stomach. Electronically signed by Kiran Lizarraga 03/23/2017 10:38 AM
--- NOTE | 2017-03-23 12:06 | PROGRESS NOTE ---
DATE: 03/23/2017 SUBJECTIVE: Patient resting in bed. He is awake. Family is at the bedside. OBJECTIVE: Vital Signs: Temperature 99 degrees, pulse 98, respiratory rate 18, blood pressure 118/74. Intake 150 mL. Output 1.1 L. Physical Examination: General: Chronically ill-appearing, elderly gentleman resting in bed. He is awake. HEENT: Normocephalic, atraumatic. Oral mucosa dry. Neck: Supple. Trachea midline. Unable to discern JVD. Cardiovascular: Regular rate and rhythm. Slightly tachycardic. Pulmonary: He has coarse rhonchi. No wheeze. He is on O2 supplementation via nasal cannula. Abdomen: Hypoactive bowel sounds. Mild distention. No tenderness. : Not inspected. Shen catheter, dark urine. Extremities: There is 2+ edema and chronic changes noted. Integumentary: Dark scaly patches at the feet, hands, knees, elbows. Lab Data: WBC of 9.7. Sodium 141, potassium 4.6, CO2 21, creatinine 2.4, BUN 69. ASSESSMENT AND PLAN: 1. Acute kidney injury. We have been asked to follow up on the patient secondary to his creatinine rising from 1.2-1.7, now to 2.4. The patient had been receiving Lasix and albumin pretty much on a daily basis. When his creatinine michael to 1.7, his Lasix was held. It is 2.4 today. We have been asked to see him. I will reorder some urine studies. He does have a discrepancy between his creatinine and BUN ratio. Likely, he has just gotten a little bit dry. Once we get his urine studies back, we will have further recommendations. 2. Sepsis, followed by primary and infectious disease. He is on daptomycin. 3. Methicillin-resistant Staphylococcus aureus endocarditis. He is on daptomycin. 4. Urine output has been excellent. 5. Hypertension, controlled. Dictated by JEAN MARIE Alcantara for Magdiel Ramirez MD cc: Magdiel Ramirez MD
[2017-03-23 15:11] LABS: ALBUMIN 3.4 g/dL (3.5-5.0); CALCIUM 9.5 mg/dL (8.8-10.2); POTASSIUM 4.3 mmol/L (3.5-5.1)
[2017-03-23] MEDS: NON-FORMULARY BULK MED PO SCH (15:40)
[2017-03-23 18:47] LABS: UR CREAT RANDOM 72.9 mg/dL (14-26); UR PROT RANDOM 32.2 mg/dL
--- NOTE | 2017-03-23 19:15 | PROGRESS NOTE ---
DATE: 03/23/2017 SUBJECTIVE: The patient is awake but confused. He continues to have thick brown NG tube output. OBJECTIVE: Vital Signs: Temperature 98.5 degrees, blood pressure 123/72, heart rate 100, respirations 19, O2 saturation is 99% on room air. General: This is a chronically ill-appearing, elderly male, lying in bed, in no acute distress. Head: Normocephalic, atraumatic. Heart: S1, S2. Normal. Tachycardic. Lungs: Equal air entry bilaterally. No crackles. No rales. Abdomen: Distended. Hypoactive bowel sounds. Nontender. Extremities: There is 2+ edema. No cyanosis. No calf tenderness. Neurologic: The patient is awake and able to move all 4 extremities. However, he does have periods of confusion. LABS: White blood cell count 9.7, hemoglobin 8.5, hematocrit 26, platelets 82, 000. INR 1.6. ABG pH of 7.65, pCO2 18, PO2 141, O2 saturation 100%. Sodium 140, potassium 4.3, chloride 103, CO2 20, BUN 69, creatinine 2.5, glucose 80. Total bilirubin 28, direct bilirubin greater than 10, AST 220, ALT 85, alkaline phosphatase 93, albumin 3.4. Abdominal x-ray shows multiple air distended loops of bowel in the abdomen. ASSESSMENT AND PLAN: 1. Sepsis secondary to methicillin-resistant Staphylococcus aureus bacteremia and suspected endocarditis. The patient so far has 3 sets of blood cultures that are positive. Repeat cultures are currently pending. Will continue on IV daptomycin. Dr. Vivas is following. 2. Hepatic encephalopathy, unchanged. The patient's ammonia level is normal. His lactulose and rifaximin are on hold. 3. Acute kidney injury on chronic kidney disease. The patient received IV lasix plus albumin on Fri, , and Friday. His creatinine is now 2.4. Will start 1/2 normal saline and reconsult the automobile parts assembler. His urine output remains excellent. 4. Hepatitis C. Unchanged. Will continue to monitor. 5. Thrombocytopenia. Stable. 6. Left sternoclavicular abscess status post incision and drainage. Stable. 7. Liver cirrhosis. Aware. 8. Coagulopathy. Stable. 9. Small bowel obstruction. Continue with NG tube decompression. General Surgery is following. 10. Gastrointestinal prophylaxis. Continue on IV Nexium. cc: Stephany Cowan MD [facility]
--- NOTE | 2017-03-23 19:51 | CONSULTATION ---
DATE OF CONSULTATION: 03/23/2017 Thank you very much for asking me to see this very pleasant 56-year-old male . DIAGNOSIS: 1. Sepsis. 2. Hypertension. 3. History of hepatitis. 4. Psoriasis. 5. Staph abscess left upper shoulder. RECOMMENDATIONS: He has now moved to the ICU. We will give him volume resuscitation, broad- spectrum antibiotics, observe his mental status and monitor his work of breathing and gas exchange. We will follow him very closely along with you. HISTORY: This is a very pleasant 56-year-old male with a known history of hepatitis C, psoriasis who presented to the hospital on the 08 of March with a left shoulder abscess. This was drained and subsequently he was recovering, but he moved to the ICU last night with the onset of some weakness and shortness of breath. He has developed some renal insufficiency. I am consulted to assist in his care. REVIEW OF SYSTEMS: Except for the features mentioned above are positive for some weakness, weight loss and some anorexia. No ENT symptoms of odynophagia, dysphagia, epistaxis or painful swallowing, no blindness or blurring. No other cardiac or pulmonary symptoms other than mentioned. No nausea, vomiting, constipation, diarrhea. No hematuria, polyuria, nocturia, dysuria, no joint or muscle pain, stiffness, swelling, no skin rashes, itching, bruises, no seizures, loss of consciousness, or paralysis. Except for features mentioned above, all other symptoms on review of systems are negative. PAST MEDICAL HISTORY: Positive as mentioned above for psoriasis, gout, hypertension, COPD. He is a nondrinker. FAMILY HISTORY: Noncontributory. SOCIAL HISTORY: Lives with his family. He is a smoker as mentioned above. PHYSICAL EXAMINATION: Vital signs: He has a blood pressure of 118/74 with pulse 98, respirations 18, temperature 98.5 degrees. HEENT: Reveals no thyromegaly or adenopathy. Pupils are equal and reactive. Extraocular muscles intact. Neck: Supple. No bruits. No thyromegaly. No JVD. Chest: Reveals bilateral equal breath sounds with some prolongation of the expiratory phase and forced expiratory wheezes or crackles. There are crackles heard. No friction rub. Cardiac: Reveals a regular rhythm without an appreciable murmur. Abdomen: Soft, nontender. No hepatosplenomegaly. Mildly distended. Extremities: Reveal no evidence of cyanosis. Skin: Has excoriations and breakdowns on hands, arms and back. Neurologically: He is awake. DIAGNOSTICS: The chest radiograph is clear but poor inspiratory effort. The ABG shows a white count of 9700, hemoglobin 8.4, hematocrit 26, platelets 82,000. Sodium 141, potassium 4.6, chloride 104, CO2 21, BUN 69, creatinine 2.4, glucose 89. The ABG shows a 7.65 pH with an 18 CO2 and 118 O2 on room air.
[2017-03-23] MEDS: CUBICIN 500 MG in NS 100 ML IV SCH (20:24)
--- NOTE | 2017-03-23 22:08 | PROGRESS NOTE ---
DATE: 03/23/2017 SUBJECTIVE: The patient is more alert and oriented. He denies abdominal pain but continues to have thick brown feculent material from his NG tube. OBJECTIVE: General: He is jaundiced but is resting comfortably. Vital signs: His blood pressure is 118/74, pulse of 98, respiration 18, temperature of 98.9 degrees. HEENT: Remarkable for jaundice. His oropharyngeal mucosal membranes are dry. Pulmonary: Lungs are clear anteriorly. There are decreased breath sounds posteriorly. Cardiovascular: Reveals a regular rhythm but tachycardia. No murmurs, gallops, or rubs. Abdomen: Exam reveals hypoactive bowel sounds. The abdomen is soft but slightly distended. There is no rebound or guarding. Extremities: Bilaterally are remarkable for 2+ edema. OBJECTIVE DATA: Reveals a hemoglobin of 8.5 with hematocrit of 26.0 and a white count of 9.74. He has 82,000 platelets. Sodium is 141, potassium 4.6, chloride 104, CO2 21, BUN 69, creatinine 2.4 with a glucose of 82. Calcium is 9.6, total bilirubin 28.06, direct bilirubin greater than 10, AST 220, ALT 85, alkaline phosphatase 93, total protein 7.5 and albumin 3.6. His blood cultures remain persistently positive for MRSA. abdominal film shows persistent dilated loops of bowel in the abdomen. IMPRESSION: 1. Small bowel obstruction. 2. Sepsis secondary to methicillin-resistant Staphylococcus aureus. 3. Hepatic encephalopathy. 4. Untreated hepatitis C. 5. Cirrhosis secondary to hepatitis C. RECOMMENDATION: 1. Continue supportive care. 2. The source of his bacteremia and sepsis is unclear. His cultures remain positive for MRSA suggesting that there is another source for the MRSA infection which warrants further evaluation. 3. His hepatic encephalopathy is stable. He is more awake but is easily confused. If this persists he may benefit from lactulose enemas due to his small bowel obstruction. 4. He has hepatitis C. The treatment of the hepatitis C will be deferred as an outpatient and he will follow up with Dr. Geronimo Wheeler, his primary formulation scientist. 5. Additional recommendations to follow based on his clinical course. cc: Stephany Cowan MD
[2017-03-24 04:38] LABS: ALLEN TEST YES; BE -2.7 mmoll (-3.0-3.0); BLOOD TYPE ARTERIAL; DRAW SITE R RADIAL; METHB 0.7 % (0.0-1.5); O2(CT) 11.1 mL/dL (15.0-23.0); PCO2(98.6) 28 mmHg (35-45); PO2(98.6) 91 mmHg (60-100); SAMPLE BLOOD; SAO2 100.1 % (95.0-100.0); pH(98.6) 7.47 (7.35-7.45)
[2017-03-24 04:39] LABS: MODALITY ROOM AIR
[2017-03-24] MEDS: 1/2 NS 1,000 ML IV SCH ×2 (05:21→15:34)
[2017-03-24] MEDS: NEXIUM IV SCH ×2 (05:21→17:08)
[2017-03-24 06:33] LABS: INR 1.52; PROTIME 16.4 Seconds (9.2-11.7)
[2017-03-24 06:35] LABS: BASO% 0.6 % (0.0-0.8); EOS# 0.26 X1000 (0.0-0.7); EOS% 2.6 % (0.0-10.0); HEMATOCRIT 26.3 % (42.0-52.0); HEMOGLOBIN 8.4 g/dL (14.0-18.0); IMM GRAN# 0.03 X1000 (0.0-0.04); IMM GRAN% 0.3 % (0.0-0.5); LYMPH% 18.7 % (20.5-51.1); MANUAL DIFF NEEDED? YES; MCH 32.4 PG (27-31); MCHC 31.9 g/dL (33-37); MCV 101.5 FL (81-99); MONO# 1.61 X1000 (0.11-0.59); MONO% 15.9 % (1.7-9.3); MPV 12.6 FL (7.4-10.4); NEUT% 61.9 % (42.2-75.2); PLT 98 X1000 (130-400); RBC 2.59 XMIL (4.7-6.1)
[2017-03-24 07:00] LABS: AGAP 17; ALBUMIN 3.1 g/dL (3.5-5.0); ALKALINE PHOSPHATASE 96 U/L (32-122); BUN 67 mg/dL (8-22); CALCIUM 8.6 mg/dL (8.8-10.2); CHLORIDE 106 mmol/L (98-107); COSMO 301; GOT 184 U/L (10-34); GPT 73 U/L (10-44); SODIUM 142 mmol/L (136-145); TCO2 19 mmol/L (25-35); TOTAL PROTEIN 7.5 g/dL (6.3-8.3)
[2017-03-24 07:05] LABS: BANDS 8 % (0-1); EOS 4 % (1-10); LYMPHS 12 % (21-51); MONO 12 % (1-9)
[2017-03-24 07:06] LABS: HYPOCHROM 1+
[2017-03-24 07:15] LABS: DIRECT BILIRUBIN > 10.00 mg/dL (0.00-0.20); TOTAL BILIRUBIN 24.91 mg/dL (0.20-1.00)
--- NOTE | 2017-03-24 07:53 | PROGRESS NOTE ---
DATE: 03/23/2017 CHIEF COMPLAINT: Weakness, fatigue. SUBJECTIVE: Mr. Moralez appears to be very fatigued and tired. He is not having any pain. OBJECTIVE: Vital signs: Blood pressure today is 116/69. Temperature is 99 degrees. Pulse 99. Respirations 17. General: He is arousable. HEENT: Jaundiced. Neck: No jugular venous distention. Chest: Diminished breath sounds at bases. Cardiac: Heart sounds regular and rhythmic. He does have a systolic murmur, 1 to 2/6 over the left sternal border. No gallop is noted. No rub is noted. Abdomen: Nondistended. It is hard to tell if there is hepatomegaly. Extremities: Show hyperkeratotic changes in upper and lower extremities with bilateral edema 1+. Neurologic: Generally weak. Follows commands. TESTS: Tests performed within the past 24 hours include chest and abdominal CT which shows interval development of small bowel obstruction, a small amount of abdominal and pelvic ascites noted. No focal hepatic, splenic or pancreatic abnormality identified on the contrast exam. Abdominal ultrasound was done and is reported as showing fatty infiltration of the liver, mild increased renal echotexture, a small amount of ascites. A 2D echocardiogram was done yesterday with contrast to evaluate for suspected endocarditis. I have reviewed this study myself. I do not see conclusive evidence of endocardial vegetation. He does have a prominent eustachian valve which is probably a normal variant. I do not see anything that I would define as vegetation and I do not see definite indication of structural valvular malfunction. His left ventricular ejection fraction is normal. IMPRESSION: 1. Patient presenting with MRSA septicemia. 2. Active hepatitis C, acute hepatitis with severe hyperbilirubinemia and, based on his multiple blood tests, he seemingly appears to have liver failure. His condition is getting complicated by acute renal dysfunction. He is probably going into some sort of hepatorenal syndrome. He is being followed by Nephrology and GI. 3. Hyperkeratotic lesions noted on arms/hands and legs/soles of feet. Initially thought to represent scabies, however, that was ruled out by skin scraping. Other conditions could cause that. He carries a diagnosis of psoriasis, however, that typically does not cause hyperkeratotic lesions in fingers and feet. RECOMMENDATIONS: At any rate, at this point in time, from Cardiology, I do not have any specific suggestions. Performing transesophageal echocardiogram on him under the present circumstances is not going to be of any help for practical purposes. I would suggest to continue supporting him as you are doing. His prognosis appears to be dismal. Please call us if we can be of any further assistance. cc: José Miguel Rosado MD [facility]
[2017-03-24] MEDS: BACTROBAN OINTMENT TOP SCH (09:27)
[2017-03-24] MEDS: MERREM 500 MG in NS 50 ML IV SCH (09:27)
[2017-03-24] MEDS: NON-FORMULARY BULK MED PO SCH (09:48)
--- NOTE | 2017-03-24 10:35 | Diag Imaging Result Doc PS360 ---
EXAM: FLAT/UPRIGHT ABD/1 VIEW CHEST HISTORY: obstruction TECHNIQUE: Portable COMPARISON: 03/23/2017 FINDINGS: The lungs are well expanded. No cardiomegaly. Mild increased interstitial markings in the lower left lung fairly similar to the prior exam. There is a nasogastric tube in the esophagus and stomach. There are air distended loops of bowel. No definite improvement. No organomegaly. Mild scoliosis with degenerative spine changes. IMPRESSION: Persistent small bowel obstruction. Electronically signed by Kiran Lizarraga 03/24/2017 10:33 AM
--- NOTE | 2017-03-24 16:22 | PROGRESS NOTE ---
DATE: 03/24/2017 SUBJECTIVE: Patient is sitting up in bed. He is asking where he is at. OBJECTIVE: Vital Signs: Temperature 98.3 degrees, pulse 93, respirations 14, blood pressure 124/69. Intake 2.4 L. Output 1.7 L. General: This is a chronically ill- appearing, elderly gentleman resting in bed. He is awake and alert. HEENT: Normocephalic, atraumatic. Oral mucosa is dry. RUBINA, conjunctivae pale. Neck: Supple. Trachea midline. Cardiovascular: Regular rate and rhythm. No murmur appreciated. Pulmonary: He continues with some rhonchi bilaterally. He has no increased work of breathing. He has equal excursion. Remains on 2 L nasal cannula. Abdomen: Soft with positive bowel sounds. He does have some mild distention noted. : Shen catheter with dark yellow urine. Extremities: There is 2+ pretibial edema. He has chronic edema noted bilateral lower extremities. integumentary: He has dark scaly patches noted to the extremities, upper and lower. LAB DATA: WBC of 10.1, hemoglobin 8.4. Sodium 142, potassium 4.0. CO2 19. BUN 67, creatinine 2.3. ASSESSMENT AND PLAN: 1. Acute kidney injury. Creatinine is really unchanged overnight. He has some IV fluids infusing currently. His FENa did not indicate severe prerenal issues. There was some concern for that because he had been given multiple doses of Lasix. He does not require intervention at this time. We will continue to monitor closely. 2. Fluid volume. He is making adequate urine, although he still in a little bit positive territory. 3. Electrolytes, acid-base balance, anemia. These are stable and followed by primary. 4. Sepsis. Followed by primary. 5. Methicillin-resistant Staphylococcus aureus endocarditis. Remains on daptomycin. 6. Hypertension, controlled. Seen, data reviewed, discussed with Patel Hammer on 03/24/17. I agree with the above assessment and plan of care. rg Dictated by JEAN MARIE Alcantara for Mgadiel Ramirez MD cc: Magdiel Ramirez MD [facility]
--- NOTE | 2017-03-24 18:30 | PROGRESS NOTE ---
DATE: 03/24/2017 SUBJECTIVE: The patient is resting comfortably in bed. No acute events noted overnight. The patient did have a large bowel movement yesterday evening. OBJECTIVE: Vital Signs: Temperature 98.3 degrees, blood pressure 121/70, heart rate 91, respirations 19, O2 saturation is 99% on room air. General: This is a chronically ill-appearing, elderly male, lying in bed, in no acute distress. Head: Normocephalic, atraumatic. Heart: S1, S2. Normal. Tachycardic. Lungs: Equal air entry bilaterally. No crackles. No rales. Abdomen: Positive bowel sounds. Soft. Distended. Extremities: There is 2+ edema. No cyanosis. No calf tenderness. Neurologic: The patient is slightly lethargic this morning but he is able to move all 4 extremities. LABS: White blood cell count 10, hemoglobin 8.4, hematocrit 26, platelets 98, 000. Sodium 142, potassium 4, chloride 106, CO2 19, BUN 67, creatinine 2.3, glucose 75, calcium 8.6, total bilirubin 24, direct bilirubin greater than 10, AST 184, ALT 73, ammonia 39, alkaline phosphatase 96. ASSESSMENT AND PLAN: 1. Sepsis secondary to methicillin-resistant Staphylococcus aureus bacteremia. Continue with the current antibiotic regimen as directed by Dr. Vivas. 2. Metabolic encephalopathy. Slowly improving. 3. Acute kidney injury on chronic kidney disease. Slightly improved today. We will continue with gentle IV fluid hydration. 4. Hepatitis C. Unchanged. 5. Liver cirrhosis. Aware. 6. Thrombocytopenia. Slightly improved today. 7. Left sternoclavicular abscess status post incision and drainage. Stable. 8. Coagulopathy. Stable. 9. Small bowel obstruction. The patient did have a large bowel movement yesterday. We will continue to monitor the patient's NG tube output. General surgery is following. 10. Gastrointestinal prophylaxis. Continue on IV Nexium. 11. Disposition: [facility] has denied transfer to [facility]. Will request a peer to peer with [facility]. cc: Stephany Cowan MD [facility]
[2017-03-24] MEDS: CUBICIN 500 MG in NS 100 ML IV SCH (19:54)
[2017-03-25] MEDS: 1/2 NS 1,000 ML IV SCH ×3 (00:12→20:08)
[2017-03-25 04:18] LABS: BASO% 0.9 % (0.0-0.8); EOS# 0.23 X1000 (0.0-0.7); EOS% 2.6 % (0.0-10.0); HEMATOCRIT 28.4 % (42.0-52.0); HEMOGLOBIN 9.3 g/dL (14.0-18.0); IMM GRAN# 0.02 X1000 (0.0-0.04); IMM GRAN% 0.2 % (0.0-0.5); LYMPH# 1.82 X1000 (1.2-3.4); LYMPH% 20.9 % (20.5-51.1); MANUAL DIFF NEEDED? NO; MCH 32.9 PG (27-31); MCHC 32.7 g/dL (33-37); MCV 100.4 FL (81-99); MONO# 1.21 X1000 (0.11-0.59); MONO% 13.9 % (1.7-9.3); MPV 11.9 FL (7.4-10.4); NEUT% 61.5 % (42.2-75.2); PLT 93 X1000 (130-400); RBC 2.83 XMIL (4.7-6.1)
[2017-03-25 04:28] LABS: INR 1.55; PROTIME 16.7 Seconds (9.2-11.7)
[2017-03-25 04:53] LABS: ALBUMIN 3.1 g/dL (3.5-5.0); CALCIUM 8.6 mg/dL (8.8-10.2); POTASSIUM 4.2 mmol/L (3.5-5.1); TOTAL BILIRUBIN 22.45 mg/dL (0.20-1.00); TOTAL PROTEIN 7.7 g/dL (6.3-8.3)
--- NOTE | 2017-03-25 05:57 | PROGRESS NOTE ---
DATE: 03/24/2017 PRESENT ILLNESS: The patient has methicillin-resistant Staph aureus. Dr. Rosado looked at the most recent echocardiogram, and he said that he does not see any evidence of endocarditis or a mass in the right atrium either. The patient does have a methicillin-resistant Staph aureus bacteremia, which finally we have gotten negative cultures on. Also, he has methicillin-resistant Staph aureus sternoclavicular joint arthritis. MEDICATION:Patient is taking daptomycin, rifampin and meropenem. PHYSICAL EXAMINATION: Vital Signs: Temperature is 97.7 degrees, pulse 90, respirations 15, blood pressure 125/78. In general, the patient still looks chronically ill and malnourished, but he is talking more and is able to move his extremities even though he is very weak. Lungs: Clear to auscultation. Cardiovascular: Regular heart rate. Abdomen is soft and nontender. Extremities: Patient's PICC site is not swollen or draining pus. Integument: Patient has severely crusted skin lesions due to his psoriasis. LABORATORY DATA AND RADIOLOGY: CBC shows a white count of 10,150. Hemoglobin 8.4, platelet count 98,000. Blood gases show a pH of 7.47, a PO2 of 91, pCO2 of 28. Bilirubin is 24.9. The AST is 184 and the ALT is 73. Blood cultures drawn on 03/22/2017 are negative and blood cultures drawn on 03/23/2017 are pending. A wound culture is negative. The abdominal x-ray shows findings consistent with a small bowel obstruction. As mentioned above, Dr. Rosado said that the echo does not show any evidence of endocarditis or masses in the atrium. ASSESSMENT AND PLAN: I plan to continue with daptomycin and rifampin. This is day 10 of daptomycin and day 5 of rifampin. At this time, I do not see a need for meropenem so I am going to discontinue it. The patient's comorbidities include severe liver disease, end-stage renal disease, gastroesophageal reflux disease and severe psoriasis. cc: Clemente Vivas MD [facility] CENTERMarguerite
[2017-03-25] MEDS: NEXIUM IV SCH ×2 (06:04→17:53)
--- NOTE | 2017-03-25 07:18 | Diag Imaging Result Doc PS360 ---
EXAM: CHEST-PORTABLE HISTORY: abnormal exam TECHNIQUE: AP portable at 0500 COMMENT: There is an NG tube with its tip in the stomach. The inspiration is suboptimal. Considering differences in technique there has been no significant change since 03/24/2017. IMPRESSION: Stable chest. Electronically signed by Triston Hurley 03/25/2017 7:16 AM
--- NOTE | 2017-03-25 08:29 | Diag Imaging Result Doc PS360 ---
EXAM: ABDOMEN FLAT/UPRIGHT HISTORY: small bowel obstruction TECHNIQUE: Portable flat and upright abdomen at 0815 COMMENT: There is an NG tube coiled in the fundus of the stomach. There are some slightly distended small bowel loops in the midabdomen. There is gas in the rectum. No definite evidence of organomegaly or mass is present. Compared to 03/24/2017 there is been marked improvement in the dilatation of small bowel loops. IMPRESSION: Improved partial small bowel obstruction. Electronically signed by Triston Hurley 03/25/2017 8:27 AM
[2017-03-25] MEDS: BACTROBAN OINTMENT TOP SCH (09:00)
[2017-03-25] MEDS: D50W SYRINGE IV PRN (10:55)
[2017-03-25] MEDS: NON-FORMULARY BULK MED PO SCH (12:21)
[2017-03-25] MEDS: MORPHINE IV PRN (20:08)
[2017-03-25] MEDS: CUBICIN 500 MG in NS 100 ML IV SCH (20:08)
[2017-03-25] MEDS: ZOFRAN IV PRN (20:09)
--- NOTE | 2017-03-25 21:28 | PROGRESS NOTE ---
DATE: 03/25/2017 PRESENT ILLNESS: The patient has methicillin-resistant Staph aureus bacteremia with an associated sternal clavicular joint septic arthritis. MEDICATIONS: The patient is taking a combination of daptomycin, rifampin and meropenem. The meropenem was discontinued yesterday. This is day 11 of treatment with daptomycin and day 6 of treatment with rifampin. PHYSICAL EXAM: Vital signs-Temp 98, Pulse 90, RR 16, BP130/70. General- Chronically ill and malnourished appearing, Lungs-CTA, CV- Regular HR, Abdomen-soft, nontender , Neuro- Awake, moves extremities. The patient's chest wound and blood cultures are negative. Liver function studies show decrease in the numbers. Chest x-ray shows stable bibasilar infiltrates/atelectasis. ASSESSMENT AND PLAN: 1. This is day 11 of daptomycin and day 6 of rifampin. I plan to continue treatment for the patient's bacteremia and sternoclavicular joint septic arthritis. 2. Comorbidities include severe liver disease, end-stage renal disease, gastroesophageal reflux disease, and severe psoriasis. cc: Clemente Vivas MD [facility]
--- NOTE | 2017-03-25 21:47 | PROGRESS NOTE ---
DATE: 03/25/2017 SUBJECTIVE: The patient is resting comfortably in bed. No acute events noted overnight. The NG tube output is slowly decreasing and the patient is having bowel movements. OBJECTIVE: Vital Signs: Temperature 97.9 degrees, blood pressure 135/77, heart rate 90, respirations 18, O2 saturations 100% on room air. General: This is a chronically ill-appearing, elderly male, lying in bed, in no acute distress. Head: Normocephalic, atraumatic. Heart: S1, S2. Normal. Regular rate and rhythm. Lungs: Clear to auscultation bilaterally. No wheezing. No rales. No rhonchi. Abdomen: Positive bowel sounds. Soft, nontender, nondistended. Extremities: 2+ edema. No cyanosis. No calf tenderness. The patient does have psoriasis involving his hands and feet. Neurologic: The patient is alert and oriented. No focal neurologic deficits noted. LABORATORY: White blood cell count 8.7, hemoglobin 9.3, hematocrit 28, platelets 93,000. INR 1.5, sodium 143, potassium 4.2, chloride 110, CO2 18, BUN 57, creatinine 1.9, glucose 71. Calcium 8.6, total bilirubin 22, AST 176. ALT 70. Alkaline phosphatase 89. Ammonia 32. Total protein 3.1. IMAGING: Abdominal x-ray shows a partial small bowel obstruction that is improved. ASSESSMENT AND PLAN: 1. Sepsis secondary to methicillin-resistant Staphylococcus aureus bacteremia. Continue on daptomycin as directed by Dr. Vivas. So far the blood cultures from March 22 and March 23 remain negative. 2. Partial small bowel obstruction. Improved. The nasogastric tube output has decreased and the patient is having bowel movements. Hopefully we will be able to do a swallow evaluation and start the patient on a diet. 3. Acute kidney injury on chronic kidney disease. Improving daily. 4. Hepatitis C. Aware. 5. Metabolic encephalopathy. Improved. 6. Thrombocytopenia. Stable. 7. Status post incision and drainage of left sternoclavicular abscess secondary to Methicillin- resistant Staphylococcus aureus. Continue on daptomycin plus wound care. 8. Psoriasis. Aware. 9. Gastrointestinal prophylaxis. Continue on IV Nexium. 10. Disposition. The patient will likely require rehab placement. The patient's health insurance has denied transfer to [facility] at this time. cc: Stephany Cowan MD
--- NOTE | 2017-03-25 22:10 | PROGRESS NOTE ---
DATE: 03/25/2017 SUBJECTIVE: No change. OBJECTIVE: Vital Signs: Blood pressure 135/77, heart rate 90, respiration 18, afebrile. Intake 3.5 L. Output 2.4 L. General: No acute distress. Skin: Warm and dry. Neck: Neck veins are not distended. Trachea is midline. Heart: Regular with an S4. Lungs: Have equal breath sounds. No crackles. Abdomen: Soft, nontender. Bowel sounds present. Extremities: Have no edema, clubbing, or cyanosis. LABORATORY DATA: Sodium 143, potassium 4.2, chloride 110, bicarbonate 18, BUN 57, creatinine 1.9. IMPRESSION: 1. Acute kidney injury. Creatinine is improving progressively. Nothing further to add so we will sign off. If he gets worse we would be glad to see him again. 2. Metabolic acidosis. Modest, no change. cc: Magdiel Ramirez MD
[2017-03-26] MEDS: 1/2 NS 1,000 ML IV SCH (05:58)
[2017-03-26] MEDS: NEXIUM IV SCH ×2 (05:59→17:24)
[2017-03-26 06:27] LABS: BASO% 0.9 % (0.0-0.8); EOS# 0.23 X1000 (0.0-0.7); EOS% 3.1 % (0.0-10.0); HEMOGLOBIN 9.3 g/dL (14.0-18.0); IMM GRAN# 0.02 X1000 (0.0-0.04); IMM GRAN% 0.3 % (0.0-0.5); LYMPH# 1.71 X1000 (1.2-3.4); LYMPH% 23.1 % (20.5-51.1); MANUAL DIFF NEEDED? YES; MCH 32.4 PG (27-31); MCHC 32.1 g/dL (33-37); MONO# 0.94 X1000 (0.11-0.59); MONO% 12.7 % (1.7-9.3); MPV 11.8 FL (7.4-10.4); NEUT% 59.9 % (42.2-75.2); PLT 90 X1000 (130-400); RBC 2.87 XMIL (4.7-6.1)
[2017-03-26 06:34] LABS: INR 1.67; PROTIME 18.1 Seconds (9.2-11.7)
[2017-03-26 06:54] LABS: ALBUMIN 2.8 g/dL (3.5-5.0); TOTAL PROTEIN 6.8 g/dL (6.3-8.3)
[2017-03-26 07:03] LABS: TOTAL BILIRUBIN 17.89 mg/dL (0.20-1.00)
[2017-03-26 07:19] LABS: EOS 6 % (1-10); HYPOCHROM 1+; LYMPHS 10 % (21-51); MONO 10 % (1-9)
--- NOTE | 2017-03-26 08:09 | Diag Imaging Result Doc PS360 ---
EXAM: ABDOMEN FLAT/UPRIGHT INDICATION: partial small bowel obstruction TECHNIQUE: 2 views COMPARISON: 03/25/2017 FINDINGS: The NG tube is in stable position. There is patchy small bowel gas and colonic gas is essentially stable as compared to the previous study. There is only very mild distention. No free abdominal gas is appreciated. There is no evidence of organomegaly. IMPRESSION: Essentially stable patchy small bowel gas as described. Electronically signed by Neftali Claire 03/26/2017 8:06 AM
[2017-03-26] MEDS: BACTROBAN OINTMENT TOP SCH (09:47)
[2017-03-26] MEDS: NON-FORMULARY BULK MED PO SCH (09:47)
[2017-03-26] MEDS: D5 1/2 NS 1,000 ML IV SCH (11:35)
[2017-03-26] MEDS: D50W SYRINGE IV PRN (11:36)
--- NOTE | 2017-03-26 14:48 | PROGRESS NOTE ---
DATE: 03/26/2017 SUBJECTIVE: The patient is sitting up in bed. He has no complaints. No acute events noted overnight. OBJECTIVE: Vital Signs: Temperature 96 degrees, blood pressure 141/79, heart rate 81, respirations 14, O2 saturations 100% on room air. General: This is a chronically ill-appearing, elderly male, lying in bed, in no acute distress. Head: Normocephalic, atraumatic. Heart: S1, S2. Normal. Regular rate and rhythm. Lungs: Equal air entry bilaterally. No crackles no rales. Abdomen: Positive bowel sounds. Soft, nontender, nondistended. Extremities: +1 edema. No cyanosis. No calf tenderness. Neurologic: The patient is alert and oriented x3. LABORATORY: White blood cell count 7.4, hemoglobin 9.3, hematocrit 29, platelets 90,000. INR 1.6, sodium 145, potassium 4, chloride 112, CO2 17, BUN 46, creatinine 1.6, glucose 67. Calcium 8. Total bilirubin 17.8. AST 171. ALT 65. Ammonia 41. Albumin 2.8. ASSESSMENT AND PLAN: 1. Methicillin-resistant Staphylococcus aureus bacteremia. Continue on daptomycin as directed by Dr. Vivas. So far the blood cultures from March 22 and March 23 remained negative. 2. Partial small bowel obstruction. Improved. We will request a swallow evaluation and start the patient on clear liquids if he can swallow. 3. Acute kidney injury on chronic kidney disease. Improved. 4. Hepatitis C. Aware. The patient will need to follow up with Dr. Wheeler as outpatient once his infection has cleared up to discuss treatment options. 5. Metabolic encephalopathy. Improved. 6. Thrombocytopenia. Stable. 7. Status post incision and drainage of a left sternoclavicular abscess secondary to Methicillin- resistant Staphylococcus aureus. Stable. 8. Psoriasis. Aware. 9. Liver cirrhosis. Aware. 10. Gastrointestinal prophylaxis. Continue on IV Nexium. 11. Coagulopathy. Stable. 12. The patient is stable for transfer to CICU. We will reconsult physical therapy and also consult occupational therapy. cc: Stephany Cowan MD
[2017-03-26] MEDS: SODIUM CHLORIDE 0.9% INJ SCH (17:24)
[2017-03-26] MEDS: CUBICIN 500 MG in NS 100 ML IV SCH (20:43)
[2017-03-27] MEDS: D5 1/2 NS 1,000 ML IV SCH ×2 (00:11→14:02)
[2017-03-27 05:17] LABS: EOS# 0.22 X1000 (0.0-0.7); EOS% 3.2 % (0.0-10.0); HEMATOCRIT 29.2 % (42.0-52.0); HEMOGLOBIN 9.5 g/dL (14.0-18.0); IMM GRAN# 0.02 X1000 (0.0-0.04); IMM GRAN% 0.3 % (0.0-0.5); LYMPH# 1.69 X1000 (1.2-3.4); LYMPH% 24.5 % (20.5-51.1); MANUAL DIFF NEEDED? YES; MCH 32.9 PG (27-31); MCHC 32.5 g/dL (33-37); MONO# 0.88 X1000 (0.11-0.59); MONO% 12.8 % (1.7-9.3); NEUT% 58.2 % (42.2-75.2); PLT 99 X1000 (130-400); RBC 2.89 XMIL (4.7-6.1)
[2017-03-27 05:22] LABS: INR 1.64; PROTIME 17.8 Seconds (9.2-11.7)
[2017-03-27] MEDS: NEXIUM IV SCH ×2 (05:34→16:54)
[2017-03-27 05:45] LABS: AGAP 11; ALBUMIN 2.8 g/dL (3.5-5.0); ALKALINE PHOSPHATASE 83 U/L (32-122); BUN 33 mg/dL (8-22); CALCIUM 8.4 mg/dL (8.8-10.2); CHLORIDE 111 mmol/L (98-107); COSMO 285; GOT 168 U/L (10-34); GPT 68 U/L (10-44); SODIUM 139 mmol/L (136-145); TCO2 17 mmol/L (25-35); TOTAL BILIRUBIN 13.87 mg/dL (0.20-1.00); TOTAL PROTEIN 7.5 g/dL (6.3-8.3)
[2017-03-27 07:50] LABS: EOS 1 % (1-10); LYMPHS 22 % (21-51); MONO 9 % (1-9)
[2017-03-27] MEDS: RIFAMPIN 600 MG in NS 100 ML IV SCH (09:24)
--- NOTE | 2017-03-27 10:39 | PROGRESS NOTE ---
DATE: 03/27/2017 PRESENT ILLNESS: The patient has methicillin-resistant Staphylococcus aureus bacteremia with an associated sternoclavicular septic joint arthritis. Previously, he was felt to have endocarditis and infection of atrial masses but this no longer is present as seen on echocardiogram. MEDICATIONS: This is day 12 of treatment with daptomycin and day 7 of treatment with rifampin since the patient's blood cultures have turned negative. The rifampin was being given p.o. but since the patient has an NG tube done because of a small bowel obstruction, I have made rifampin IV. PHYSICAL EXAMINATION: Vital Signs: Temperature is 98 degrees, pulse 74, respirations 18, blood pressure 129/79. General: This is an ill-appearing and malnourished appearing, middle-aged male. He is in no acute distress. He is asking to take food by mouth including liquids but unfortunately, we are not going to be able to let him do that because on x-ray, he appears to have a small-bowel obstruction. Head, Eyes, Ears, Nose, and Throat: He can hear my spoken words and see near objects. An NG tube is in place. Lungs: Clear to auscultation. Cardiovascular: Heart rate was regular. Abdomen: Soft and nontender. It was not distended. Neurologic: Patient is awake. He can move his extremities. He can talk. There is no tremor. Chest: The patient's sternoclavicular wound has beefy red tissue and there is no surrounding erythema. Skin: There are multiple large areas with hypertropic crusted lesions. LAB AND X-RAY: There is no new radiographic study today. Patient's CBC shows a white count of 6890, hemoglobin 9.5, and platelet count 99,000. Creatinine is 1.2. GFR is greater than 60. Bilirubin is down to 13.8. The ALT is 68. The patient's repeat wound culture is pending. A CPK has been ordered now as well. The patient's blood cultures are sterile. ASSESSMENT AND PLAN: The patient has bacteremia and septic sternoclavicular joint arthritis. The plan is to continue with daptomycin and rifampin. As mentioned above, the rifampin now is intravenous because of the patient's small-bowel obstruction. The patient's chest wound appears to be healing well and its culture also is pending. COMORBIDITIES: The patient's comorbidities include severe liver disease, end-stage renal disease, gastroesophageal reflux disease, and severe psoriasis. cc: Clemente Vivas MD
--- NOTE | 2017-03-27 12:09 | Diag Imaging Result Doc PS360 ---
EXAM: ABDOMEN FLAT/UPRIGHT INDICATION: partial small bowel obstruction TECHNIQUE: 2 views COMPARISON: 03/26/2017 FINDINGS: The NG tube is an essentially stable position below the diaphragm and assumed to be in the stomach. Gaseous distention of small bowel is again identified. This distention is stable to marginally worse than the previous study. There is no evidence of large volume free abdominal gas. The abdomen is stable, otherwise. IMPRESSION: Stable to marginally worse mild gaseous distention of small bowel bowel. Electronically signed by Neftali Claire 03/27/2017 12:07 PM
[2017-03-27] MEDS: BACTROBAN OINTMENT TOP SCH (14:02)
--- NOTE | 2017-03-27 14:37 | PROGRESS NOTE ---
DATE: 03/27/2017 SUBJECTIVE: This patient is sitting up in bed. He is not complaining of any specific pain, no acute events overnight, he had a formed bowel movement yesterday. We did a swallow evaluation today and he passed. He has an NG tube likely secondary to a small bowel obstruction. We will start feeding this patient once surgery is okay with this. OBJECTIVE: Vital Signs: Temperature 98 degrees, pulse 82, respiratory rate 16, blood pressure 128/77, oxygen saturation 100% on room air. HEENT: Head normocephalic. No trauma. PERRLA. General: This is a chronically ill-appearing, elderly male in no acute distress. Neck: Supple. No JVD. No masses. Central trachea. Cardiovascular: Regular rhythm and rate. Chest: Clear to auscultation. No wheezing. No rales. Abdomen: Soft. Mildly distended. Positive bowel sounds. Extremities: 1+ lower extremity edema. He has chronic changes likely secondary to chronic psoriasis. Neurological: The patient is alert and oriented x3. No focal deficits. LABORATORY: WBC 6.8, hemoglobin 9.5, hematocrit 29.2, platelets 99,000. PT 17.8, creatinine 1.6. Sodium 139, potassium 4, chloride 111, bicarbonate 17, BUN 33, creatinine 1.2. Glucose 111. Calcium 8.4. Albumin 2.8. ASSESSMENT AND PLAN: 1. Methicillin-resistant Staphylococcus aureus bacteremia. Continue with daptomycin and rifampin as directed by Dr. Vivas. Blood cultures from March 22 and March 24 are negative. 2. Partial small bowel obstruction. I think this is getting better. He had a bowel movement yesterday. He is having bowel sounds and passing gas, he is hungry. A swallow evaluation this patient and he passed. We will ask Surgery Department to see if we can feed this patient. 3. Acute on chronic kidney disease, improved. 4. Hepatitis C. Aware. This patient will need to follow up with Dr. Wheeler as an outpatient once his infection has cleared up to discuss treatment options. 5. Metabolic encephalopathy, improved. 6. Thrombocytopenia, stable. 7. Status post incision and drainage of a left sternoclavicular joint abscess secondary to methicillin-resistant Staphylococcus aureus. Continue with the same management. 8. Psoriasis, aware. 9. Liver cirrhosis. Aware. 10. Gastrointestinal prophylaxis. Continue with IV Nexium. 11. Coagulopathy, stable, likely secondary to liver cirrhosis. 12. Transaminitis. This is getting better. 13. Physical deconditioning. We have consulted Physical Therapy. We will monitor. cc: Lee Granger MD
[2017-03-27] MEDS: CUBICIN 500 MG in NS 100 ML IV SCH (19:44)
[2017-03-28] MEDS: D5 1/2 NS 1,000 ML IV SCH ×2 (03:34→15:06)
[2017-03-28 04:51] LABS: HEMATOCRIT 26.8 % (42.0-52.0); HEMOGLOBIN 8.8 g/dL (14.0-18.0); MCH 33.6 PG (27-31); MCHC 32.8 g/dL (33-37); MCV 102.3 FL (81-99); MPV 11.5 FL (7.4-10.4); PLT 84 X1000 (130-400); RBC 2.62 XMIL (4.7-6.1)
[2017-03-28 04:58] LABS: INR 1.66
[2017-03-28 05:07] LABS: AGAP 13; ALBUMIN 2.8 g/dL (3.5-5.0); ALKALINE PHOSPHATASE 75 U/L (32-122); BUN 25 mg/dL (8-22); CALCIUM 8.6 mg/dL (8.8-10.2); CHLORIDE 108 mmol/L (98-107); COSMO 281; GOT 142 U/L (10-34); GPT 63 U/L (10-44); POTASSIUM 3.8 mmol/L (3.5-5.1); SODIUM 138 mmol/L (136-145); TCO2 17 mmol/L (25-35); TOTAL BILIRUBIN 13.88 mg/dL (0.20-1.00); TOTAL PROTEIN 7.2 g/dL (6.3-8.3)
[2017-03-28] MEDS: NEXIUM IV SCH ×2 (05:10→17:56)
[2017-03-28] MEDS: RIFAMPIN 600 MG in NS 100 ML IV SCH (08:17)
[2017-03-28] MEDS: BACTROBAN OINTMENT TOP SCH (08:17)
--- NOTE | 2017-03-28 08:38 | PROGRESS NOTE ---
DATE: 03/28/2017 PRESENT ILLNESS: The patient has a methicillin-resistant Staphylococcus aureus bacteremia with an associated sternoclavicular septic joint arthritis. His most recent echocardiogram did not show the presence of endocarditis or masses in his right atrium. These were seen in prior echocardiograms. MEDICATIONS: This patient has been on daptomycin now for 13 days and the patient has been on rifampin for 7 days. This is the time since the patient had his 1st negative blood cultures. PHYSICAL EXAMINATION: Vital Signs: Temperature is 98.6 degrees, pulse 85, respirations 18, blood pressure 134/70. General: This is an ill-appearing, middle-aged male. He is in no acute distress. Lungs: Clear to auscultation. Cardiovascular: Regular heart rate. Chest: The patient's sternoclavicular wound has beefy red tissue. It is about the same size. There is no surrounding erythema and there is no purulent drainage. Abdomen: Distended but soft and nontender. Skin: The patient has all of his body, patches of crusted skin which has been diagnosed as psoriasis. LAB AND X-RAY: The patient's CBC today shows a white count of 6880, hemoglobin 8.8, platelet count 84,000. Creatinine 1.2. GFR greater than 60. Bilirubin is 13.8, AST is 142. The patient's CPK is 280. Culture taken from the patient's chest wound is growing methicillin- resistant Staphylococcus aureus. An x-ray of the abdomen shows worse distention of the bowel. ASSESSMENT AND PLAN: I plan to continue both daptomycin and rifampin I am going to repeat his CBC, CMP and CPK on FridayMarch 31. COMORBIDITIES: Include severe liver disease, end-stage renal disease, although his renal function has improved quite a bit, gastroesophageal reflux disease, and severe psoriasis. cc: Clemente Vivas MD
[2017-03-28] MEDS ORDERED: DULCOLAX PR ONE (09:50)
--- NOTE | 2017-03-28 10:17 | Diag Imaging Result Doc PS360 ---
EXAM: KUB ABDOMEN HISTORY: Possible SBO TECHNIQUE: Portable KUB at 1002 COMMENT: There is gaseous dilatation of multiple small bowel loops throughout the abdomen. There is gas in the stomach as well as an NG tube. There is stool in the rectum. Gaseous dilatation of the small bowel has worsened considerably since 03/27/2017. There is less colonic gas. IMPRESSION: Small bowel obstruction. Electronically signed by Triston Hurley 03/28/2017 10:15 AM
--- NOTE | 2017-03-28 13:36 | PROGRESS NOTE ---
DATE: 03/28/2017 SUBJECTIVE: This patient is sitting up in bed. He is complaining of mild abdominal discomfort. As per the patient, he had a bowel movement today, but this was not reported by the nurse, and also apparently he is not passing too much gas. His bowel sounds are present, but decreased, and his abdomen is distended. I will ask for a KUB. This patient has an NG tube. I will start this patient on suction. I will give him a suppository to see if we can get a bowel movement and also I will call Surgery again to evaluate this patient to rule out SBO. OBJECTIVE: Vital Signs: Temperature 97.5 degrees, pulse 95, respiratory rate 20, blood pressure 135/98, and oxygen saturation 98% on room air. HEENT: Head normocephalic. No trauma. PERRLA. General: This is a chronically ill-appearing elderly male in no acute distress. Neck: Supple. No JVD. No masses. Central trachea. Cardiovascular: RRR. Chest: Clear to auscultation. No wheezing. No rales. Abdomen: Soft. Moderately distended. Positive bowel sounds, but decreased. Extremities: Lower extremity edema 1+. He has chronic changes likely secondary to chronic psoriasis. Neurologic: This patient is alert and oriented x3. He moves all 4 extremities. LABORATORY: WBC 6.8, hemoglobin 8.8, hematocrit 26.8, platelets 84,000. Sodium 138, potassium 3.8, chloride 108, bicarbonate 17, BUN 25, creatinine 1.2, glucose 108, calcium 8.6, AST 142, ALT 63, alkaline phosphatase 75, albumin 2.8. ASSESSMENT AND PLAN: 1. Methicillin-resistant Staphylococcus aureus bacteremia. Continue with daptomycin and rifampin as directed by Dr. Vivas. Continue to monitor the blood cultures. 2. Partial small-bowel obstruction. I think this is a little bit worse compared with yesterday. Apparently, he had a bowel movement today, but it was not documented. Decreased bowel sounds. I will get a KUB. I will give him a suppository. I will start this patient on NG tube with suction and I will call the Surgery Department to take a look at this patient. 3. Acute on chronic kidney disease. Improved. 4. Hepatitis C. Aware. This patient will need to follow up with Dr. Wheeler as an outpatient, once his infection has cleared up, to discuss treatment options. 5. Metabolic encephalopathy. Improved. 6. Thrombocytopenia. Stable. Likely secondary to kidney injury. 7. Liver cirrhosis. Aware. 8. Status post incision and drainage of left sternoclavicular joint abscess secondary to Methicillin-resistant Staphylococcus aureus. Continue with the same management as per Infectious Disease Department. 9. Gastrointestinal prophylaxis. Continue with IV Nexium. 10. Coagulopathy. Stable. Likely secondary to liver cirrhosis. 11. Transaminitis. This is getting better. 12. Physical deconditioning. Continue with physical therapy. Will monitor. cc: Lee Granger MD
--- NOTE | 2017-03-28 14:36 | PROGRESS NOTE ---
DATE: 03/28/2017 SUBJECTIVE: Briefly, this is a 56-year-old male who has had prolonged hospitalization. He has been evaluated by Dr. Joaquin for a left chest abscess. Dr. Ramos has seen him for concerns of a bowel obstruction or ileus. He has been septic, in and out of the ICU, very debilitated. History of hepatitis C liver disease. He has been transferred to CICU. He has NG tube in now and for several days. He is not tolerating clamping this. He has had high residuals, abdominal distention. Abdominal film today shows worsening small-bowel dilation with a paucity of colon gas. He denies any abdominal pain per the nurse. He continues to have bowel movements. PHYSICAL EXAMINATION: Vital Signs: Temperature is 97.5, pulse 95, blood pressure 135/98, oxygen saturation 100% on room air. General: He is alert. He seems confused. He speaks inappropriately but responsive. Cardiovascular: Normal rate, regular rhythm. Abdomen: Distended, mildly tympanic, but very soft and nontender. Integument is otherwise warm, dry. His left chest wound is clean and granulating. No signs of infection here. There are no scars on his abdomen. DIAGNOSTIC DATA: White count 6, hematocrit is 26, INR is 1.66. Bilirubin is 13.88, creatinine is 1.2. ASSESSMENT AND PLAN: This is a 56-year-old male with multiple medical issues including liver disease, cirrhosis and liver failure. I suspect this is most likely not a bowel obstruction but more of an ileus type picture given his immobility, his history of electrolyte derangements, and his multiple acute on chronic medical issues. I would keep the NG tube in place for now, optimize his electrolytes, and assist him out of bed with ambulation as much as possible. I suspect this is going to be difficult to resolve until we are able to do this. His MELD score is 25, which is quite elevated. Would recommend against any surgical intervention at this point. Would continue to treat him non operatively for ileus. cc: Cullen Robertson MD
[2017-03-28] MEDS: SODIUM CHLORIDE 0.9% INJ SCH (17:56)
[2017-03-28] MEDS: CUBICIN 500 MG in NS 100 ML IV SCH (20:38)
[2017-03-29] MEDS: D5 1/2 NS 1,000 ML IV SCH ×3 (04:05→16:15)
[2017-03-29] MEDS: SODIUM CHLORIDE 0.9% INJ SCH (05:39)
[2017-03-29] MEDS: NEXIUM IV SCH ×2 (05:39→17:43)
[2017-03-29 06:30] LABS: HEMATOCRIT 26.9 % (42.0-52.0); HEMOGLOBIN 8.8 g/dL (14.0-18.0); MCH 33.3 PG (27-31); MCHC 32.7 g/dL (33-37); MCV 101.9 FL (81-99); MPV 11.7 FL (7.4-10.4); PLT 87 X1000 (130-400); RBC 2.64 XMIL (4.7-6.1)
[2017-03-29 06:37] LABS: AGAP 13; ALBUMIN 2.6 g/dL (3.5-5.0); ALKALINE PHOSPHATASE 76 U/L (32-122); BUN 18 mg/dL (8-22); CHLORIDE 109 mmol/L (98-107); COSMO 278; GOT 125 U/L (10-34); GPT 60 U/L (10-44); POTASSIUM 3.6 mmol/L (3.5-5.1); SODIUM 138 mmol/L (136-145); TCO2 16 mmol/L (25-35); TOTAL BILIRUBIN 14.89 mg/dL (0.20-1.00)
[2017-03-29] MEDS: RIFAMPIN 600 MG in NS 100 ML IV SCH (08:50)
[2017-03-29] MEDS: BACTROBAN OINTMENT TOP SCH (08:51)
--- NOTE | 2017-03-29 11:45 | PROGRESS NOTE ---
DATE: 03/29/2017 SUBJECTIVE: This patient is about the same compared with yesterday. He is still lying on the bed with no complaints. His abdomen is moderating distended, tympanitic. This patient has an NG tube. Probably, this patient has an ileus and the Surgery Department is following this patient. Apparently, today he has a soft brown bowel movement. OBJECTIVE: Vital Signs: Temperature 98.5 degrees, pulse 87, respiratory rate 18, blood pressure 154/92, O2 saturation 100% on room air. HEENT: Head normocephalic. No trauma. PERRLA. Neck: Supple. No JVD. No masses. Central trachea. Cardiovascular: RRR. Chest: Clear to auscultation. No wheezing. No rales. He has a clean dressing at the level of the left upper chest. Abdomen: Soft, moderately distended. Tympanitic. Positive bowel sounds, but decreased. Extremities: Lower extremity edema 1+. He has chronic changes at the level of the hands and feet, likely secondary to chronic psoriasis. Neurological: The patient is alert and oriented x3. He moves all 4 extremities. He has severe weakness. LABORATORY: WBC 7.8, hemoglobin 8.8, hematocrit 26.9, platelets 87,000. Sodium 138, potassium 3.6, chloride 109, bicarbonate 16, BUN 18, creatinine 1.1, glucose 105, calcium 9, albumin 2.6. ASSESSMENT AND PLAN: 1. Methicillin-resistant Staphylococcus aureus bacteremia. Continue with daptomycin and rifampin as directed by Dr. Vivas. Continue to monitor his blood cultures. We have a blood culture done from 03/23/2017 that showed Staphylococcus aureus from the chest secretion, Methicillin- resistant Staphylococcus aureus positive. 2. Ileus. This patient will need more physical activity. Physical Therapy is on board and Surgery Department is following this patient closely. 3. Acute on chronic kidney disease. Improved. 4. Hepatitis C. Aware. This patient will need to follow up follow up with Dr. Wheeler as an outpatient, once his infection has cleared up, to discuss treatment options. 5. Metabolic encephalopathy. Improved. 6. Thrombocytopenia. Stable. Likely secondary to liver injury. 7. Liver cirrhosis. Aware. 8. Status post incision and drainage of left sternoclavicular joint abscess secondary to Methicillin-resistant Staphylococcus aureus. Continue with same management as per Infectious Disease Department. 9. Gastrointestinal prophylaxis. Continue with IV Nexium. 10. Coagulopathy, stable, likely secondary to liver cirrhosis. 11. Transaminitis. Continue to monitor. 12. Physical deconditioning. Continue with physical therapy. Will monitor. cc: Lee Granger MD
[2017-03-29] MEDS: CUBICIN 500 MG in NS 100 ML IV SCH (21:02)
[2017-03-30] MEDS: SODIUM CHLORIDE 0.9% INJ SCH (04:45)
[2017-03-30] MEDS: D5 1/2 NS 1,000 ML IV SCH ×3 (04:45→09:15)
[2017-03-30] MEDS: NEXIUM IV SCH ×2 (04:45→17:53)
[2017-03-30 05:15] LABS: HEMATOCRIT 26.9 % (42.0-52.0); HEMOGLOBIN 8.8 g/dL (14.0-18.0); MCH 32.5 PG (27-31); MCHC 32.7 g/dL (33-37); MCV 99.3 FL (81-99); MPV 12.3 FL (7.4-10.4); PLT 91 X1000 (130-400); RBC 2.71 XMIL (4.7-6.1)
[2017-03-30 05:46] LABS: AGAP 11; ALBUMIN 2.5 g/dL (3.5-5.0); ALKALINE PHOSPHATASE 68 U/L (32-122); BUN 15 mg/dL (8-22); CALCIUM 8.3 mg/dL (8.8-10.2); CHLORIDE 109 mmol/L (98-107); COSMO 273; GOT 121 U/L (10-34); GPT 57 U/L (10-44); POTASSIUM 3.6 mmol/L (3.5-5.1); SODIUM 136 mmol/L (136-145); TCO2 16 mmol/L (25-35); TOTAL PROTEIN 7.1 g/dL (6.3-8.3)
[2017-03-30] MEDS: CLINIMIX E 4.25%-5% SOLUTION 1,000 ML IV SCH (09:13)
[2017-03-30] MEDS: RIFAMPIN 600 MG in NS 100 ML IV SCH (09:14)
[2017-03-30] MEDS: BACTROBAN OINTMENT TOP SCH (09:15)
--- NOTE | 2017-03-30 10:50 | PROGRESS NOTE ---
DATE: 03/30/2017 SUBJECTIVE: This patient is about the same compared with yesterday. He is still lying on the bed. Yesterday, as per the family members, he was sitting at the edge of the bed and moving the lower extremities, I will continue with physical therapy for this patient. This patient has an ileus. Yesterday, apparently he had also a bowel movement. We will monitor. OBJECTIVE: Vital Signs: Temperature 98.6 degrees, pulse 84, respiratory rate 22, blood pressure 132/81, oxygen saturation 97% on room air. HEENT: Head normocephalic. No trauma. PERRLA. Neck: Supple. No JVD. No masses. Central trachea. Chest: Clear to auscultation. No wheezing. No rales. He has a clean dressing at the level of the left upper chest. Abdomen: Soft, moderately distended, tympanic. Positive bowel sounds but decreased. Extremities: Lower extremity edema of around 1+. He has chronic changes at the level of the hands and feet, likely secondary to chronic psoriasis. Neurological Examination: The patient is alert and oriented x3. He moves all 4 extremities. He has severe weakness. Laboratory: WBC 7.8, hemoglobin 8.8, hematocrit 26.9, platelets 91,000. Sodium 136, potassium 3.6, chloride 109, bicarbonate 16, BUN 15, creatinine 1, glucose 97, calcium 8.3. Albumin 2.5. ASSESSMENT AND PLAN: 1. Methicillin-resistant Staphylococcus aureus bacteremia. Continue with daptomycin and rifampin as directed by Dr. Vivas. Continue to monitor his blood cultures. We have a blood culture done on 03/23/2017 that showed methicillin-resistant Staphylococcus aureus from his chest. 2. Ileus. This patient will need more physical activity to see if his bowel can be working again. Physical therapy on board. Surgery department following this patient. 3. Acute on chronic kidney disease, resolved. 4. Hepatitis C, aware. This patient will need to follow up with Dr. Wheeler as an outpatient once his infection has cleared up to discuss treatment options. 5. Metabolic encephalopathy, improved. 6. Thrombocytopenia, stable, likely secondary to liver cirrhosis. 7. Liver cirrhosis, aware. 8. Status post incision and drainage of sternoclavicular joint abscess secondary to methicillin- resistant Staphylococcus aureus. Continue with the same management as per infectious disease department. 9. Gastrointestinal prophylaxis. Continue with intravenous Nexium. 10. Coagulopathy, stable, secondary to liver cirrhosis. 11. Transaminitis. Continue to monitor. 12. Physical deconditioning. Continue with physical therapy. cc: Lee Granger MD
[2017-03-30] MEDS: CUBICIN 500 MG in NS 100 ML IV SCH (21:26)
[2017-03-31] MEDS: CLINIMIX E 4.25%-5% SOLUTION 1,000 ML IV SCH (04:23)
[2017-03-31] MEDS: D5 1/2 NS 1,000 ML IV SCH ×2 (04:23→09:10)
[2017-03-31] MEDS: SODIUM CHLORIDE 0.9% INJ SCH ×2 (04:24→17:12)
[2017-03-31] MEDS: NEXIUM IV SCH ×3 (04:24→17:12)
[2017-03-31 05:21] LABS: BASO% 0.6 % (0.0-0.8); EOS# 0.16 X1000 (0.0-0.7); EOS% 1.9 % (0.0-10.0); HEMATOCRIT 26.7 % (42.0-52.0); HEMOGLOBIN 8.9 g/dL (14.0-18.0); LYMPH# 1.62 X1000 (1.2-3.4); LYMPH% 19.1 % (20.5-51.1); MANUAL DIFF NEEDED? NO; MCH 33.1 PG (27-31); MCHC 33.3 g/dL (33-37); MCV 99.3 FL (81-99); MONO# 1.07 X1000 (0.11-0.59); MONO% 12.6 % (1.7-9.3); MPV 12.1 FL (7.4-10.4); NEUT% 65.8 % (42.2-75.2); PLT 88 X1000 (130-400); RBC 2.69 XMIL (4.7-6.1)
[2017-03-31 05:28] LABS: INR 1.73; PROTIME 18.8 Seconds (9.2-11.7)
[2017-03-31 05:34] LABS: AGAP 12; ALBUMIN 2.4 g/dL (3.5-5.0); ALKALINE PHOSPHATASE 72 U/L (32-122); BUN 16 mg/dL (8-22); CALCIUM 8.7 mg/dL (8.8-10.2); CHLORIDE 108 mmol/L (98-107); COSMO 276; GOT 104 U/L (10-34); GPT 55 U/L (10-44); SODIUM 137 mmol/L (136-145); TCO2 17 mmol/L (25-35)
[2017-03-31 05:41] LABS: TOTAL BILIRUBIN 15.32 mg/dL (0.20-1.00)
--- NOTE | 2017-03-31 06:57 | PROGRESS NOTE ---
DATE: 03/31/2017 PRESENT ILLNESS: The patient has a methicillin-resistant Staphylococcus aureus bacteremia with an associated sternoclavicular septic joint arthritis. The infection has been very difficult to treat. At one time, an echocardiogram did show the presence of endocarditis and masses in the right atrium. However, in his most recent echocardiogram, neither of these things are seen. The patient also has a small bowel obstruction. MEDICATIONS: This is day 16 of daptomycin and day 10 for rifampin since the patient had his 1st negative blood culture. PHYSICAL EXAMINATION: Vital Signs: Temperature is 98.9 degrees, pulse 92, respirations 18, blood pressure 142/74. General: This is an ill-appearing, middle-aged male. He is in no acute distress. Cardiovascular: Heart rate is regular. Abdomen: Soft and nontender. The abdomen remains distended. It is soft and is not tender. Lungs: Clear to auscultation. Chest: The patient's left-sided sternoclavicular joint wound has beefy red tissue and there is no surrounding erythema. Integument: The patient has numerous areas of a skin rash consisting of patches of crusted skin. This has been diagnosed as psoriasis in the past LAB AND X-RAY: The patient's CBC today showed a white count of 8470, hemoglobin 8.9, and platelet count 88,000. Creatinine is 1. GFR is greater than 60. The patient's CPK is 155. Bilirubin is 15.3. The patient's sternoclavicular joint wound is growing methicillin-resistant Staphylococcus aureus. ASSESSMENT AND PLAN: The plan is now to continue with both daptomycin and rifampin. The patient's comorbidities include severe liver disease, end-stage renal disease, although his renal function now has improved. The patient also has gastroesophageal reflux disease and severe psoriasis. I plan to continue both rifampin and daptomycin for his bacteremia and septic arthritis. The patient will be treated for a total of 8 weeks. COMORBIDITIES: Include severe liver disease, end-stage renal disease although his renal function is normal now, gastroesophageal reflux disease, and severe psoriasis. cc: Clemente Vivas MD
--- NOTE | 2017-03-31 07:16 | Diag Imaging Result Doc PS360 ---
EXAM: ABDOMEN FLAT/UPRIGHT HISTORY: ileus TECHNIQUE: Flat and upright abdomen portable at 0535 COMMENT: There is an NG tube in the stomach. There is less distention of small bowel loops than on 03/28/2017. There is some gas and stool in the rectum. There is more gas in the transverse colon. IMPRESSION: Improved small bowel dilatation and partial small bowel obstruction. Electronically signed by Triston Hurley 03/31/2017 7:14 AM
[2017-03-31] MEDS ORDERED: NS 250 ML ONE (09:01)
[2017-03-31] MEDS: RIFAMPIN 600 MG in NS 100 ML IV SCH (09:10)
[2017-03-31] MEDS: BACTROBAN OINTMENT TOP SCH (09:12)
--- NOTE | 2017-03-31 09:29 | PROGRESS NOTE ---
DATE: 03/31/2017 SUBJECTIVE: This patient looks a little bit better compared with yesterday. His abdomen is not as distended as yesterday but the bowel sounds are decreased though. As per the patient, he is passing gas. Surgery department is on board. OBJECTIVE: Vital Signs: Temperature 98.9 degrees, pulse 92, respiratory rate 18, blood pressure 142/74, oxygen saturation 98 on room air. HEENT: Head normocephalic. No trauma. PERRLA. Neck: Supple. No JVD. No masses. Central trachea. Chest: Clear to auscultation. No wheezing. No rales. He has a clean dressing at the level of the left upper chest. Abdomen: Soft. Mildly distended. Tympanic. Decreased bowel sounds. Extremities: Lower extremity edema around 1+. He has chronic changes at the level of the hands and feet, likely secondary to chronic psoriasis. Neurological Examination: The patient is alert and oriented x3. He moves all 4 extremities. He has severe weakness. Laboratory: WBC 8.4, hemoglobin 8.9, hematocrit 26.7, platelets 88,000. Sodium 137, potassium 4, chloride 108, bicarbonate 17, BUN 16, creatinine 1, glucose 117, calcium 8.7. Total bilirubin 15.3. Albumin 2.4. ASSESSMENT AND PLAN: 1. Methicillin-resistant Staphylococcus aureus bacteremia. Continue with daptomycin and rifampin as directed by Dr. Vivas. It looks like this patient is going to be on daptomycin and rifampin for 8 weeks. Continue to monitor the blood cultures. On 03/23/2017, a secretion culture from his chest showed methicillin-resistant Staphylococcus aureus. 2. Ileus. This patient needs more physical therapy. Physical therapy is on board. Surgery department is following this patient. The abdomen looks a little bit better today. If surgery department does not restart his diet today, my plan is to get a peripherally inserted central catheter line and start this patient on total parenteral nutrition. Since this patient anyway is going to get antibiotics for at least 8 weeks and his blood cultures from the were negative, I am going to place the peripherally inserted central catheter line anyway. 3. Acute on chronic kidney disease, resolved. 4. Hepatitis C, aware. This patient will need to follow up with Dr. Wheeler as an outpatient once this infection has cleared up to discuss treatment options. 5. Metabolic encephalopathy, improved. 6. Thrombocytopenia, stable, likely secondary to liver cirrhosis. 7. Liver cirrhosis, aware. 8. Status post incision and drainage of the sternoclavicular joint abscess secondary to methicillin-resistant Staphylococcus aureus. Continue with the same management as per infectious disease department. 9. Gastrointestinal prophylaxis. Continue with intravenous Nexium. 10. Coagulopathy, stable, secondary to liver cirrhosis. 11. Transaminitis, stable. Actually is getting a little bit better. We will monitor. 12. Nutritional status. At this moment, this patient is getting Clinimix. I will ask today for a peripherally inserted central catheter line placement and I will start total parenteral nutrition if surgery department does not restart his diet. 13. Physical deconditioning. Continue with physical therapy. cc: Lee Granger MD
--- NOTE | 2017-03-31 12:58 | PROGRESS NOTE ---
DATE: 03/31/2017 SUBJECTIVE: Patient is resting with eyes closed. He does arouse to stimulus. He followed commands. I talked with his sister who is at the bedside. I talked with the nurse who states they were unable to keep the NG tube clamped. After clamping the NG tube patient had some abdominal distention. After restarting the NG tube to suction she reported 400 mL of content returned. OBJECTIVE: Vital Signs: Temperature 98.7 degrees, pulse 95, respirations 18, blood pressure 144/80. General: Patient was resting with eyes closed and aroused to stimulus. No acute distress. Respiratory: Lung sounds essentially clear bilaterally. Abdomen: Soft. Some mild distention. He has hypoactive bowel sounds. NG to suction. LABORATORY: Hematology: White count 8.47, hemoglobin 8.9, hematocrit 26.7, MCV 99.3, platelets 88,000. Chemistry: Sodium 137, potassium 4.0, chloride 108, CO2 17, BUN 16, total bilirubin 15.32, AST 104, ALT 55, alkaline phosphatase 72. ASSESSMENT: 1. Methicillin-resistant Staphylococcus aureus bacteremia. He has continued on antibiotics and followed by Dr. Vivas. 2. Ileus with NG tube to intermittent suction. Patient did not tolerate the tube being clamped. Continue low intermittent suction for now. 3. Hepatitis C. Once he is discharged home we will see him as an outpatient to discuss treatment options. 4. Metabolic encephalopathy, improved. 5. Liver cirrhosis. 6. Sternoclavicular joint abscess. Following with surgery. PLAN: Continue supportive care. Continue antibiotics. Continued NG to low intermittent suction. I will discuss this case with Dr. Wheeler. We will continue to follow. Dictated by JEAN MARIE Chairez for Geronimo Wheeler MD cc: JEAN MARIE Smart MD
[2017-03-31] MEDS: CUBICIN 500 MG in NS 100 ML IV SCH (21:13)
[2017-03-31] MEDS ORDERED: NARCAN IV ONE (23:49)
[2017-04-01] MEDS: CLINIMIX E 4.25%-5% SOLUTION 1,000 ML IV SCH (00:11)
[2017-04-01 05:10] LABS: BASO% 0.6 % (0.0-0.8); EOS# 0.15 X1000 (0.0-0.7); EOS% 1.9 % (0.0-10.0); HEMOGLOBIN 8.5 g/dL (14.0-18.0); LYMPH# 1.82 X1000 (1.2-3.4); LYMPH% 23.4 % (20.5-51.1); MANUAL DIFF NEEDED? NO; MCH 32.6 PG (27-31); MCHC 32.7 g/dL (33-37); MCV 99.6 FL (81-99); MONO# 1.02 X1000 (0.11-0.59); MONO% 13.1 % (1.7-9.3); MPV 12.1 FL (7.4-10.4); PLT 95 X1000 (130-400); RBC 2.61 XMIL (4.7-6.1)
[2017-04-01 05:26] LABS: AGAP 10; ALBUMIN 2.3 g/dL (3.5-5.0); ALKALINE PHOSPHATASE 65 U/L (32-122); BUN 17 mg/dL (8-22); CALCIUM 8.3 mg/dL (8.8-10.2); CHLORIDE 107 mmol/L (98-107); COSMO 270; GOT 106 U/L (10-34); GPT 55 U/L (10-44); POTASSIUM 3.9 mmol/L (3.5-5.1); SODIUM 134 mmol/L (136-145); TCO2 17 mmol/L (25-35); TOTAL BILIRUBIN 14.44 mg/dL (0.20-1.00); TOTAL PROTEIN 7.1 g/dL (6.3-8.3)
[2017-04-01] MEDS: RIFAMPIN 600 MG in NS 100 ML IV SCH (08:30)
[2017-04-01] MEDS: BACTROBAN OINTMENT TOP SCH (08:30)
[2017-04-01] MEDS: NEXIUM IV SCH ×2 (08:30→20:47)
[2017-04-01] MEDS: SODIUM CHLORIDE 0.9% INJ SCH (08:31)
[2017-04-01] MEDS: D5 1/2 NS 1,000 ML IV SCH (08:31)
--- NOTE | 2017-04-01 09:58 | PROGRESS NOTE ---
DATE: 04/01/2017 PRESENT ILLNESS: The patient has a methicillin-resistant Staph aureus bacteremia and an associated sternoclavicular joint septic arthritis. MEDICATIONS: This is day 17 treatment with daptomycin and day 11 of treatment for rifampin since the patient had his 1st negative blood cultures. PHYSICAL EXAMINATION: Vital Signs: Temperature is 98.1 degrees, pulse 96, respirations 14, blood pressure 144/73. General: This is a chronically ill-appearing middle-aged male. He is in no acute distress. HEENT: The patient has an NG tube down thorax. The patient's sternoclavicular wound is unchanged. Lungs: Clear to auscultation. Cardiovascular: Regular heart rate. Abdomen: Distended, soft and not tender. I did not hear any bowel sounds. Neurologic: Patient is lethargic. He did move his extremities to request. There was no tremor. Extremities: The patient's left arm PICC site is not swollen or tender. Integument: The patient has multiple areas of skin rash consisting of patches of crusted skin. LAB AND X-RAY: The patient's CBC today shows a white count of 7770, hemoglobin 8.5, and platelet count 95,000, creatinine is 1.0, GFR is greater than 60. Bilirubin is 14.44. CPK from yesterday is 155. ASSESSMENT AND PLAN: The patient has bacteremia and septic joint arthritis. My plan is to continue treatment with the combination of daptomycin and rifampin. Patient's lab data shows a CBC with a white count of 7770, hemoglobin 8.5, and platelet count 95,000, creatinine is 1, GFR is greater than 60. Bilirubin is 14.44, CPK was 155 yesterday. The patient had a PICC in the left arm so that the total parenteral nutrition can be started. The plan is to continue antibiotics as mentioned above, also to put in a PICC for nutritional needs. I plan to treat the patient for a total of 8 weeks following his first negative blood culture. COMORBIDITIES: Include cirrhosis of the liver, end-stage renal disease, gastroesophageal reflux disease and severe psoriasis. cc: Clemente Vivas MD
[2017-04-01 10:16] LABS: MAGNESIUM 1.3 mg/dL (1.5-2.7)
[2017-04-01] MEDS: MORPHINE IV PRN ×3 (12:43→20:47)
[2017-04-01 13:24] LABS: AGAP 10; BUN 18 mg/dL (8-22); CALCIUM 8.4 mg/dL (8.8-10.2); CHLORIDE 100 mmol/L (98-107); COSMO 258; GOT 102 U/L (10-34); MAGNESIUM 1.4 mg/dL (1.5-2.7); PREALBUMIN 4.8 mg/dL (20-40); SODIUM 127 mmol/L (136-145); TCO2 17 mmol/L (25-35); TRIGLYCERIDES 112 mg/dL (39-160)
[2017-04-01] MEDS: TPN ELECTROLYTES 20 ML, MAGNESIUM SULFATE 4 MEQ, POTASSIUM CHLORIDE 25 MEQ, SODIUM PHOS... IV SCH ×7 (13:51)
[2017-04-01] MEDS: LIPOSYN 20% 250 ML IV SCH (13:51)
--- NOTE | 2017-04-01 14:04 | PROGRESS NOTE ---
DATE: 04/01/2017 SUBJECTIVE: This patient still has an NG tube, this patient is not passing gas, the abdomen is soft, mildly distended. Decreased bowel sounds. Surgery department on board. OBJECTIVE: Vital Signs: Temperature 98.3 degrees, pulse 91, respiratory rate 22, blood pressure 139/78, O2 saturation 98 on room air. HEENT: Head normocephalic. No trauma. PERRLA. Neck: Supple. No JVD. No masses. Central trachea. Chest: Clear to auscultation. No wheezing. No rales. He has a clean dressing at the level of the left upper chest. Abdomen: Soft. Mild distended, tympanic, decreased bowel sounds. Extremities: Lower extremity edema around 1+. He has chronic changes at the level of the hands feet likely secondary to chronic psoriasis. Neurologic: The patient is alert and oriented x3. He moves all 4 extremities. He has severe weakness. LABORATORY: WBC 7.7, hemoglobin 8.5, hematocrit 26, platelet 95,000. Sodium 134, potassium 3.9, chloride 107, bicarbonate 17, BUN 17, creatinine is 1, glucose 101, calcium 8.3, albumin 2.3. ASSESSMENT AND PLAN: 1. Methicillin-resistant Staphylococcus aureus bacteremia. Continue with daptomycin and rifampin as directed by Dr. Vivas. It looks like this patient is going to be on daptomycin and rifampin for 8 weeks. Continue to monitor the blood cultures, on 03/23/2017 a secretion culture from his chest showed methicillin-resistant Staphylococcus aureus again. 2. Ileus. I increased his physical therapy to twice a day and I asked to put this patient every 4 hours sitting up in a chair, his abdomen is soft. He is mild distended. He says that he is not passing gas. Surgery on board. 3. Acute on chronic kidney disease resolved. 4. Hepatitis C, aware. This patient will need to follow up with Dr. Wheeelr as an outpatient once this infection has cleared up to discuss treatment options. 5. Metabolic encephalopathy improved. 6. Thrombocytopenia, stable, likely secondary to liver cirrhosis. 7. Liver cirrhosis, aware. Continue to monitor. 8. Status post incision and drainage of a sternoclavicular joint abscess secondary to methicillin- resistant Staphylococcus aureus. Continue with the same management as per Infectious Disease Department. 9. Gastrointestinal prophylaxis. Continue with IV Nexium. 10. Coagulopathy stable secondary to liver cirrhosis. 11. Transaminitis stable. Will monitor. 12. Nutritional status. At this moment this patient is getting Clinimix, we placed yesterday a peripherally inserted central catheter line, I asked today for a dietitian consult to start this patient on TPN. Once this patient is eating and getting better I will stop the TPN. 13. Physical deconditioning. Continue with physical therapy. Overall this patient is doing a little bit better, I do not think he needs to be in the CIC unit. Probably he will need to be transferred to a regular medical room, private. cc: Lee Granger MD
[2017-04-01] MEDS: CUBICIN 500 MG in NS 100 ML IV SCH (20:47)
[2017-04-02] MEDS: MORPHINE IV PRN (04:56)
[2017-04-02 05:34] LABS: AGAP 11; BUN 17 mg/dL (8-22); CALCIUM 8.4 mg/dL (8.8-10.2); CHLORIDE 106 mmol/L (98-107); COSMO 272; MAGNESIUM 1.4 mg/dL (1.5-2.7); POTASSIUM 4.1 mmol/L (3.5-5.1); SODIUM 135 mmol/L (136-145); TCO2 18 mmol/L (25-35)
[2017-04-02] MEDS ORDERED: MAGNESIUM SULFATE 2 GM/S.W.I. 2 GM/50 ML IVPB IV ONE (08:26)
--- NOTE | 2017-04-02 08:27 | PROGRESS NOTE ---
DATE: 04/02/2017 PRESENT ILLNESS: Patient has a methicillin-resistant Staph aureus bacteremia with an associated septic sternal clavicular joint arthritis. MEDICATIONS: This is day 18 of treatment with daptomycin and day 12 of treatment with rifampin since the patient first had negative blood cultures. PHYSICAL EXAMINATION: Vital Signs: Temperature is 98.2 degrees, pulse 89, respirations 16, blood pressure 145/81. General: Generally this is an ill-appearing middle-aged male who is in no acute distress at this time. Lungs: Clear to auscultation. Cardiovascular: Regular heart rate. Abdomen: The abdomen is still distended. An NG tube is down. Extremities: The patient has a left arm PICC in place. The site is not swollen or draining. Integument: Patient has multiple areas of crusted skin, which she says is secondary to psoriasis. Chest- sternoclavicular wound not swollen and is getting smaller. LABORATORY AND X-RAY: Creatinine is 0.9. GFR is greater than 60. There is no new CBC or chest x- ray for today. He has had a creatinine kinase and it was 155. The patient's protein is 0.9. The patient had liver enzymes done yesterday and they looked good. The ALT was only 55 and the AST was 102. ASSESSMENT/PLAN: The patient has bacteremia and septic joint arthritis. My plan is to continue the combination of daptomycin and rifampin total of 6 weeks of treatment. COMORBIDITIES: The patient's comorbidities include cirrhosis of the liver, end- stage renal disease, gastroesophageal reflux disease and severe psoriasis. cc: Clemente Vivas MD MTDD
[2017-04-02] MEDS: NEXIUM IV SCH ×2 (09:12→20:34)
[2017-04-02] MEDS: RIFAMPIN 600 MG in NS 100 ML IV SCH (09:12)
[2017-04-02] MEDS: SODIUM CHLORIDE 0.9% INJ SCH (09:12)
[2017-04-02] MEDS: D5 1/2 NS 1,000 ML IV SCH (09:13)
--- NOTE | 2017-04-02 10:22 | PROGRESS NOTE ---
DATE: 04/02/2017 SUBJECTIVE: This patient still has an NG tube. Yesterday, he had a bowel movement, and as per the patient, he has been passing gas. Surgery department on board. We followed their recommendations. OBJECTIVE: Vital signs: Temperature 97, pulse 87, respiratory rate 20, blood pressure 139/73, oxygen saturation 100% on room air. HEENT: Head normocephalic, no trauma, [place]. Neck: No JVD, no masses. Central trachea. Chest: Clear to auscultation, no wheezing or rales. He has a clean dressing at the level of the left upper chest. Abdomen: Soft, mildly distended, positive bowel sounds but decreased. Extremities: Lower extremity edema, 1+. He has chronic changes at the level of the hands and feet likely secondary to chronic psoriasis. Neurological: The patient is alert and oriented x3. He moves all 4 extremities. He has severe weakness. LABORATORY: Sodium 135, potassium 4.1, chloride 106, bicarbonate 18, BUN 17, creatinine 0.9, glucose 107, calcium 8.4, magnesium 1.4. ASSESSMENT AND PLAN: 1. Methicillin-resistant Staphylococcus aureus (MRSA) bacteremia. Continue with daptomycin and rifampin as directed by Dr. Vivas. It looks like this patient is going to be on this treatment for 6-8 weeks. Continue to monitor the blood cultures. On 03/23/2017, secretion from his chest was cultured and grew MRSA again. 2. Ileus. The physical activity has been increased twice a day and also I put this patient every 4 hours sitting up in a chair. His abdomen is soft. He had a bowel movement yesterday. He states that he is passing gas. Surgery on board. 3. Acute on chronic kidney disease, resolved. 4. Hepatitis C--aware. This patient will need to follow up with Dr. Wheeler as an outpatient once this infection has cleared up to discuss treatment options. 5. Metabolic encephalopathy, improved. 6. Thrombocytopenia, stable. 7. Liver cirrhosis--aware. Continue to monitor. 8. Status post I D of sternoclavicular joint abscess secondary to MRSA. Continue with the same management as per infectious disease department. 9. Gastrointestinal prophylaxis. Continue with IV Nexium. 10.Coagulopathy, stable, secondary to liver cirrhosis. 11.Transaminitis, stable. 12.Nutritional status. This patient is on TPN. Once he is eating, I will stop this treatment. 13.Physical deconditioning. Continue physical therapy twice a day and up in a chair every 4 hours during the daytime. 14.Hypomagnesemia. I will replace the magnesium today. cc: Lee Granger MD
[2017-04-02] MEDS: LIPOSYN 20% 250 ML IV SCH (14:00)
[2017-04-02] MEDS: TPN ELECTROLYTES 20 ML, MAGNESIUM SULFATE 4 MEQ, POTASSIUM CHLORIDE 25 MEQ, SODIUM PHOS... IV SCH ×7 (14:01)
[2017-04-02] MEDS ORDERED: BLISTEX MEDICATED BERRY LIP BALM TOP PRN (16:04)
--- NOTE | 2017-04-02 18:43 | PROGRESS NOTE ---
DATE: 04/02/2017 SUBJECTIVE: Feels well. No abdominal pain. He tolerated clamping trials of his tube overnight with minimal NG tube output. He is having a bowel movement. OBJECTIVE: Vital Signs: No fevers. No tachycardia. Blood pressure 124/76. Oxygen saturation 100% on room air. General: He is alert. NG tube with minimal output. Abdomen : Soft, nontender, nondistended. LABS: Reviewed. Nothing new today other than a creatinine of 0.9. Glucose 122. Magnesium is low at 1.4. ASSESSMENT AND PLAN: A 56-year-old male with multiple medical issues and a partial obstruction versus ileus type picture. Also has apparent end-stage liver disease with very high meld. Would not be a good operative candidate. I think it would be ok to remove NGT and could begin enteral nutrition slowly. I would start with clears and advance as tolerated assuming he does not have any dysphagia or swallowing difficulties. Prealbumin is very low at 4.8. He is quite malnourished and will need to treat this. We will continue to follow along. Please call with any questions. cc: Cullen Robertson MD [facility] HOSPITALMarguerite
[2017-04-02] MEDS: BACTROBAN OINTMENT TOP SCH (18:50)
[2017-04-02] MEDS: CUBICIN 500 MG in NS 100 ML IV SCH (20:34)
[2017-04-03] MEDS: MORPHINE IV PRN ×4 (01:05→21:12)
[2017-04-03 05:47] LABS: BASO% 1.1 % (0.0-0.8); EOS# 0.21 X1000 (0.0-0.7); EOS% 2.5 % (0.0-10.0); HEMATOCRIT 25.6 % (42.0-52.0); HEMOGLOBIN 8.3 g/dL (14.0-18.0); IMM GRAN# 0.02 X1000 (0.0-0.04); IMM GRAN% 0.2 % (0.0-0.5); LYMPH# 2.12 X1000 (1.2-3.4); LYMPH% 25.2 % (20.5-51.1); MANUAL DIFF NEEDED? NO; MCH 32.4 PG (27-31); MCHC 32.4 g/dL (33-37); MONO# 1.24 X1000 (0.11-0.59); MONO% 14.8 % (1.7-9.3); MPV 12.1 FL (7.4-10.4); NEUT% 56.2 % (42.2-75.2); PLT 99 X1000 (130-400); RBC 2.56 XMIL (4.7-6.1)
[2017-04-03 06:02] LABS: AGAP 11; BUN 17 mg/dL (8-22); CALCIUM 8.2 mg/dL (8.8-10.2); CHLORIDE 103 mmol/L (98-107); COSMO 270; MAGNESIUM 1.5 mg/dL (1.5-2.7); POTASSIUM 4.1 mmol/L (3.5-5.1); SODIUM 134 mmol/L (136-145); TCO2 20 mmol/L (25-35)
[2017-04-03] MEDS: RIFAMPIN 600 MG in NS 100 ML IV SCH (08:53)
[2017-04-03] MEDS: NEXIUM IV SCH ×2 (08:55→21:04)
[2017-04-03] MEDS: D5 1/2 NS 1,000 ML IV SCH (08:57)
[2017-04-03] MEDS: BACTROBAN OINTMENT TOP SCH (08:57)
[2017-04-03] MEDS: TPN ELECTROLYTES IV SCH ×7 (14:02)
[2017-04-03] MEDS: LIPOSYN 20% 250 ML IV SCH (14:02)
[2017-04-03] MEDS: POTASSIUM CHLORIDE IV SCH ×7 (14:02)
[2017-04-03] MEDS: [UNRECOGNIZED DRUG - OTHER] IV SCH ×7 (14:02)
[2017-04-03] MEDS: MAGNESIUM SULFATE IV SCH ×7 (14:02)
--- NOTE | 2017-04-03 14:53 | PROGRESS NOTE ---
DATE: 04/03/2017 PRESENT ILLNESS: Patient has methicillin-resistant Staphylococcus aureus bacteremia and associated septic sternoclavicular joint arthritis. MEDICATIONS: This is day 19 of treatment with daptomycin and day 13 of treatment with rifampin since the patient had his first negative blood cultures. PHYSICAL EXAMINATION: Vital Signs: Temperature is 98 degrees, pulse 88, respirations 18, blood pressure 132/78. General: This is an ill-appearing, middle-aged male. Today, he is more alert, and he has been eating and has not had any vomiting as of yet. Lungs: Clear to auscultation. Cardiovascular: Regular heart rate. Abdomen: Soft and nontender. Ears, Nose , Throat: The NG tube has been pulled out. Thorax: The wound in the left sternoclavicular joint area has beefy- red tissue and is closing. Integument: Patient has multiple areas of crusted skin, which he says is due to psoriasis. L arm PICC site not swollen or tender. LABORATORY AND X-RAY: The CBC for today shows a white count of 8400, hemoglobin 6.3, and platelet count 99,000. Creatinine is 0.9. GFR is greater than 60. The bilirubin is 14.4. ASSESSMENT AND PLAN: The patient has bacteremia and a septic joint. My plan is to continue daptomycin and rifampin for a total of 6 weeks. COMORBIDITIES: Include cirrhosis of the liver, end-stage renal disease, gastroesophageal reflux disease, and severe psoriasis. cc: Clemente Vivas MD MTDD
--- NOTE | 2017-04-03 16:32 | PROGRESS NOTE ---
DATE: 04/03/2017 SUBJECTIVE: NG tube was removed yesterday. This patient is tolerating liquid diet. I will keep this patient on a liquid diet for at least 1 more day to see how he does. This patient states that he is passing gas. No bowel movement so far. He is still complaining of generalized weakness. Physical therapy is on board. OBJECTIVE: Vitals: Temperature 98 degrees, pulse 88, respiratory rate 18, blood pressure 132/78, oxygen saturation 99 on room air. HEENT: Head normocephalic. No trauma. PERRLA. Neck: Supple. No JVD. No masses. Central trachea. Chest: Clear to auscultation. Decreased breath sounds at the bases. No wheezing. No rales. Abdomen: Soft, mild, distended positive bowel sounds. No pain. Nontender. Extremities: Lower extremity edema 1+. She has chronic changes at the level of the hands and feet likely secondary to chronic psoriasis. Neurological: The patient is alert and oriented x3. He moves all 4 extremities. He has severe weakness. LABORATORY: WBC 8.4, hemoglobin 8.3, hematocrit 25.6, platelets 99,000. Sodium 134, potassium 4.1, chloride 103, bicarbonate 20, BUN 17, creatinine 0.9, glucose 97, calcium 8.2, magnesium 1.5. ASSESSMENT AND PLAN: 1. Methicillin-resistant Staphylococcus aureus bacteremia. Continue with daptomycin and rifampin as directed by Dr. Vivas. It looks like he is going to be on this treatment for 6-8 weeks. Continue to monitor the blood cultures. 2. Ileus. The NG tube was removed yesterday. We started this patient on a diet; he is tolerating it. No bowel movements today but he is passing gas. 3. Acute on chronic kidney disease, resolved. 4. Hepatitis C. Aware. This patient will need to follow up with Dr. Wheeler as an outpatient once this infection has cleared up to discuss treatment options. 5. Metabolic encephalopathy, improved. 6. Thrombocytopenia. Stable. 7. Liver cirrhosis. Aware continue to monitor. 8. Status post incision and drainage of the sternoclavicular joint abscess secondary to methicillin-resistant Staphylococcus aureus. Continue with the same management as per Infectious Disease Department. 9. Gastrointestinal prophylaxis. Continue with IV Nexium. 10. Coagulopathy. Stable secondary to liver cirrhosis. 11. Transaminitis. Stable. 12. Nutritional status. This patient is on TPN and we just started this patient on a clear liquid diet. Once this is better tolerating his diet and we are able to advance the diet, I will stop the TPN. 13. Physical deconditioning. Continue with physical therapy twice a day and up in the chair every 4 hours during the daytime. 14. Hypomagnesemia. I replaced the magnesium yesterday. Today it looks a little bit better. I will continue to monitor. cc: Lee Granger MD
[2017-04-03] MEDS: SODIUM CHLORIDE 0.9% INJ SCH (21:04)
[2017-04-03] MEDS: CUBICIN 500 MG in NS 100 ML IV SCH (21:04)
[2017-04-04] MEDS ORDERED: D10W 1,000 ML IV SCH (03:00)
[2017-04-04 05:31] LABS: BASO% 1.4 % (0.0-0.8); EOS# 0.17 X1000 (0.0-0.7); EOS% 2.2 % (0.0-10.0); HEMATOCRIT 24.5 % (42.0-52.0); HEMOGLOBIN 7.9 g/dL (14.0-18.0); LYMPH# 1.92 X1000 (1.2-3.4); LYMPH% 24.5 % (20.5-51.1); MANUAL DIFF NEEDED? YES; MCHC 32.2 g/dL (33-37); MCV 99.2 FL (81-99); MONO# 1.34 X1000 (0.11-0.59); MONO% 17.1 % (1.7-9.3); MPV 12.4 FL (7.4-10.4); NEUT% 54.8 % (42.2-75.2); PLT 97 X1000 (130-400); RBC 2.47 XMIL (4.7-6.1)
[2017-04-04 05:39] LABS: AGAP 8; BUN 17 mg/dL (8-22); CALCIUM 8.2 mg/dL (8.8-10.2); CHLORIDE 103 mmol/L (98-107); COSMO 266; MAGNESIUM 1.4 mg/dL (1.5-2.7); POTASSIUM 4.3 mmol/L (3.5-5.1); SODIUM 132 mmol/L (136-145); TCO2 21 mmol/L (25-35)
[2017-04-04] MEDS: MORPHINE IV PRN ×2 (06:46→13:27)
[2017-04-04 06:59] LABS: LYMPHS 23 % (21-51); MONO 13 % (1-9)
[2017-04-04 07:00] LABS: POLYCHROM OCCASIONAL
[2017-04-04] MEDS ORDERED: MAGNESIUM SULFATE 2 GM/S.W.I. 2 GM/50 ML IVPB IV ONE (08:06)
[2017-04-04] MEDS: D5 1/2 NS 1,000 ML IV SCH (09:14)
[2017-04-04] MEDS: NEXIUM IV SCH ×2 (09:14→21:50)
[2017-04-04] MEDS: RIFAMPIN 600 MG in NS 100 ML IV SCH (09:14)
[2017-04-04] MEDS: BACTROBAN OINTMENT TOP SCH (09:15)
--- NOTE | 2017-04-04 09:20 | PROGRESS NOTE ---
DATE: 04/04/2017 PRESENT ILLNESS: The patient has a methicillin-resistant Staph aureus bacteremia and an associated septic sternoclavicular joint arthritis. MEDICATIONS: The patient has been on daptomycin for 20 days and on rifampin 14 days following the patient's first negative blood culture. PHYSICAL EXAMINATION: Vital Signs: Temperature is 98.7 degrees, pulse 94, respirations 18, blood pressure 145/73. General: This is a chronically ill-appearing, middle-aged male, who is in no acute distress. Chest: The patient's sternoclavicular wound has beefy red tissue and continues to granulate and get smaller. Lungs: Clear to auscultation. Cardiovascular: The heart rate was regular. Abdomen soft and nontender. Extremities: The patient has a PICC in his left arm. The site is not swollen or draining. Integument: The patient has a scaling-type rash in patches over most of his body. LABORATORY DATA AND X-RAY: There is no new x-ray today. The patient's lab studies show a CBC with a white count of 7840, hemoglobin 7.9 and platelet count 97,000. Creatinine is 0.9. GFR is greater than 60. ASSESSMENT AND PLAN: The patient is being treated for bacteremia and septic arthritis. The plan is to continue daptomycin and rifampin for 6 weeks, not 8 weeks. The patient's comorbidities include cirrhosis of the liver, end-stage renal disease, gastroesophageal reflux disease and severe psoriasis. cc: Clemente Vivas MD
--- NOTE | 2017-04-04 11:54 | PROGRESS NOTE ---
DATE: 04/04/2017 SUBJECTIVE: The NG tube was removed a couple days ago. He was placed on a liquid diet and he is tolerating this. He had a bowel movement apparently today and he is passing gas. He is still complaining of generalized weakness. Physical therapy is on board. He has been getting physical therapy twice a day and, also, I have ordered that this patient needs to be sitting in a chair every 4 hours. OBJECTIVE: Vital Signs: Temperature 98.7 degrees, pulse 94, respiratory rate 18 , blood pressure 145/73. O2 saturation 100% on room air. HEENT: Head normocephalic. No trauma. PERRLA. Neck supple. No JVD. No masses. Central trachea. Chest: Clear to auscultation. Decreased breath sounds at the bases. No wheezing. No rales. Abdomen soft, mildly distended, positive bowel sounds. No pain. Nontender. Extremities: Lower extremity edema 1+. He has chronic changes at the level of and hands, feet, knees and elbows secondary to chronic psoriasis. Neurological: The patient is alert and oriented x3. He moves all 4 extremities. He has severe weakness. LABORATORY: WBC 7.8, hemoglobin 7.9, hematocrit 24.5, platelet 97,000. Sodium 132, potassium 4.3, chloride 103, bicarbonate 21. BUN 17, creatinine 0.9, glucose 104. Calcium 8.2, magnesium 1.4. ASSESSMENT AND PLAN: 1. MRSA bacteremia. Continue with daptomycin and rifampin as directed by Dr. Vivas. He will receive treatment for 6 weeks. 2. Ileus. The NG tube was removed a couple of days ago. We started this patient on a clear liquid diet, and he is tolerating this. I will advance the diet today to a soft GI diet. 3. [id number] kidney disease, resolved. 4. Hepatitis C, aware. This patient will need to follow up with Dr. Wheeler as an outpatient once this infection has cleared up to discuss treatment options. 5. Metabolic encephalopathy, resolved. 6. Thrombocytopenia, stable. 7. Liver cirrhosis, aware. Continue to monitor. 8. Status post I and D of the sternoclavicular joint abscess secondary to Methicillin-resistant Staphylococcus aureus. Continue with the same management as per Infectious Disease Department. 9. Gastrointestinal prophylaxis. Continue with IV Nexium. 10. Coagulopathy, stable, secondary to liver cirrhosis. 11. Transaminitis, stable. 12. Nutritional status. This patient is on total parenteral nutrition and also he is getting clear liquid diet. I will advance the diet today. If he is able to tolerate his diet, I will stop the total parenteral nutrition. 13. Physical deconditioning. Continue with physical therapy twice a day and up in the chair every 4 hours during daytime. 14. Hypomagnesemia. I will replace the magnesium today. cc: Lee Granger MD MTDD
[2017-04-04] MEDS: POTASSIUM CHLORIDE IV SCH ×7 (13:28)
[2017-04-04] MEDS: LIPOSYN 20% 250 ML IV SCH (13:28)
[2017-04-04] MEDS: [UNRECOGNIZED DRUG - OTHER] IV SCH ×7 (13:28)
[2017-04-04] MEDS: MAGNESIUM SULFATE IV SCH ×7 (13:28)
[2017-04-04] MEDS: TPN ELECTROLYTES IV SCH ×7 (13:28)
[2017-04-04] MEDS: CUBICIN 500 MG in NS 100 ML IV SCH (21:50)
[2017-04-05] MEDS: MORPHINE IV PRN ×3 (00:35→18:37)
[2017-04-05 06:44] LABS: BASO% 1.5 % (0.0-0.8); EOS# 0.26 X1000 (0.0-0.7); EOS% 3.1 % (0.0-10.0); HEMATOCRIT 25.4 % (42.0-52.0); HEMOGLOBIN 8.2 g/dL (14.0-18.0); IMM GRAN# 0.04 X1000 (0.0-0.04); IMM GRAN% 0.5 % (0.0-0.5); LYMPH# 2.02 X1000 (1.2-3.4); LYMPH% 23.8 % (20.5-51.1); MANUAL DIFF NEEDED? NO; MCHC 32.3 g/dL (33-37); MCV 99.2 FL (81-99); MONO# 1.44 X1000 (0.11-0.59); MPV 12.1 FL (7.4-10.4); NEUT% 54.1 % (42.2-75.2); PLT 95 X1000 (130-400); RBC 2.56 XMIL (4.7-6.1)
[2017-04-05 06:55] LABS: AGAP 9; BUN 17 mg/dL (8-22); CALCIUM 8.4 mg/dL (8.8-10.2); CHLORIDE 101 mmol/L (98-107); COSMO 265; MAGNESIUM 1.5 mg/dL (1.5-2.7); POTASSIUM 4.5 mmol/L (3.5-5.1); SODIUM 131 mmol/L (136-145); TCO2 21 mmol/L (25-35)
[2017-04-05] MEDS: NEXIUM IV SCH ×2 (10:11→21:36)
[2017-04-05] MEDS: BACTROBAN OINTMENT TOP SCH (10:12)
[2017-04-05] MEDS: RIFAMPIN 600 MG in NS 100 ML IV SCH (10:13)
--- NOTE | 2017-04-05 13:40 | PROGRESS NOTE ---
DATE: 04/05/2017 SUBJECTIVE: This patient states that he is feeling better. As per the patient, he is still passing gas. He is tolerating p.o. No nausea, no vomiting. Like I said, he is tolerating p.o. but just some bites. We are still working with physical therapy twice a day. flour worker is on board and we are trying to find placement for this patient. OBJECTIVE: Vital Signs: Temperature 98.3 degrees, pulse 91, respiratory rate 21, blood pressure 141/77, oxygen saturation 100% on room air. HEENT: Head normocephalic. No trauma. PERRLA. Neck: Supple. No JVD. No masses. Central trachea. Chest: Clear to auscultation. No wheezing. No rales. Abdomen: Soft. Mild distended. Positive bowel sounds. No pain. Extremities: Lower extremity edema 1+. He has chronic changes at the level of the hands, feet, knees, and elbows secondary to chronic psoriasis. Neurological Examination: The patient is alert and oriented x3. He moves all 4 extremities. He has severe weakness. LABORATORY: WBC 8.4, hemoglobin 8.2, hematocrit 25.4, platelets 95,000. Sodium 131, potassium 4.5, chloride 101, bicarbonate 21. BUN 17, creatinine 0.9, glucose 109. Calcium 8.4, magnesium 1.5. ASSESSMENT AND PLAN: 1. Methicillin resistant staph aureus bacteremia. Continue with daptomycin and rifampin as directed by Dr. Vivas. He will receive a total of 6 weeks. 2. Ileus. NG tube was removed three days ago. We started this patient on clear liquid diet and then we advanced the diet to soft GI diet. He is tolerating some bites. No nausea, no vomiting. 3. Acute on chronic kidney disease, resolved. 4. Hyponatremia. Continue to monitor. 5. Hepatitis C, aware. This patient will need to follow up with Dr. Geronimo Wheeler as an outpatient once this infection has clear up, to discuss treatment options. 6. Metabolic encephalopathy, resolved. 7. Thrombocytopenia, stable, likely secondary to liver cirrhosis. 8. Liver cirrhosis. Aware. 9. Status post incision and drainage of the sternoclavicular joint abscess secondary to methicillin resistant staph aureus. Continue with the same management as per Infectious Disease Department. 10. Gastrointestinal prophylaxis. Continue with Nexium. 11. Coagulopathy, stable. Likely secondary to liver cirrhosis. 12. Transaminitis, stable. 13. Nutritional status: This patient is on TPN and also he is getting soft GI diet. Once he is tolerating the food better I will stop the TPN. Likely this is going to be during this weekend. 14. Physical deconditioning. Continue physical therapy twice a day and up in the chair every 4 hours during daytime. 15. Hypomagnesemia. We will monitor. Magnesium today is 1.5. cc: Lee Granger MD
[2017-04-05] MEDS: [UNRECOGNIZED DRUG - OTHER] IV SCH ×7 (13:47)
[2017-04-05] MEDS: TPN ELECTROLYTES IV SCH ×7 (13:47)
[2017-04-05] MEDS: LIPOSYN 20% 250 ML IV SCH (13:47)
[2017-04-05] MEDS: MAGNESIUM SULFATE IV SCH ×7 (13:47)
[2017-04-05] MEDS: POTASSIUM CHLORIDE IV SCH ×7 (13:47)
[2017-04-05] MEDS: ZOFRAN IV PRN (18:59)
[2017-04-05] MEDS: SODIUM CHLORIDE 0.9% INJ SCH (21:36)
[2017-04-05] MEDS: CUBICIN 500 MG in NS 100 ML IV SCH (21:36)
[2017-04-06] MEDS: MORPHINE IV PRN ×4 (00:28→20:28)
[2017-04-06 07:29] LABS: AGAP 9; BUN 20 mg/dL (8-22); CALCIUM 8.1 mg/dL (8.8-10.2); CHLORIDE 100 mmol/L (98-107); COSMO 266; POTASSIUM 4.6 mmol/L (3.5-5.1); SODIUM 131 mmol/L (136-145); TCO2 22 mmol/L (25-35)
[2017-04-06] MEDS: SODIUM CHLORIDE 0.9% INJ SCH ×2 (10:08→20:27)
[2017-04-06] MEDS: LIPOSYN 20% 250 ML IV SCH (10:08)
[2017-04-06] MEDS: RIFAMPIN 600 MG in NS 100 ML IV SCH (10:08)
[2017-04-06] MEDS: NEXIUM IV SCH ×2 (10:08→20:28)
[2017-04-06] MEDS: BACTROBAN OINTMENT TOP SCH (10:13)
[2017-04-06 13:49] LABS: AGAP 8; BUN 20 mg/dL (8-22); CALCIUM 8.4 mg/dL (8.8-10.2); CHLORIDE 98 mmol/L (98-107); COSMO 261; GOT 113 U/L (10-34); MAGNESIUM 1.5 mg/dL (1.5-2.7); POTASSIUM 4.8 mmol/L (3.5-5.1); PREALBUMIN 4.7 mg/dL (20-40); SODIUM 128 mmol/L (136-145); TCO2 22 mmol/L (25-35); TRIGLYCERIDES 111 mg/dL (39-160)
[2017-04-06] MEDS: [UNRECOGNIZED DRUG - OTHER] IV SCH ×7 (14:01)
[2017-04-06] MEDS: POTASSIUM CHLORIDE IV SCH ×7 (14:01)
[2017-04-06] MEDS: MAGNESIUM SULFATE IV SCH ×7 (14:01)
[2017-04-06] MEDS: TPN ELECTROLYTES IV SCH ×7 (14:01)
--- NOTE | 2017-04-06 14:10 | PROGRESS NOTE ---
DATE: 04/06/2017 SUBJECTIVE: This patient states that he is feeling about the same. No acute events overnight. He is still getting physical therapy twice a day and he is still having severe weakness. The nephrology social worker is on board and we are trying to find placement for this patient. He has started to tolerate his food better. Apparently he ate today his breakfast, about 50% of the food, if he continues like this, by tomorrow I will stopped his TPN. OBJECTIVE: Vital Signs: Temperature 98.8 degrees, pulse 94, respiratory rate 21, blood pressure 132/77, oxygen saturation 100% on room air. HEENT: Head normocephalic. No trauma. PERRLA. Neck: Supple. No JVD. No masses. Central trachea. Chest: Clear to auscultation. No wheezing. No rales. Abdomen: Soft, nontender, nondistended. No hepatosplenomegaly. Extremities: 1+ lower extremity edema. He has chronic changes at the level of the hands, feet, knees and elbows secondary to chronic psoriasis. Neurological: The patient is alert and oriented x3. He moves all 4 extremities. He has severe weakness. LABORATORY: Sodium 131, potassium 4.6, chloride 100, bicarbonate 22, BUN 20, creatinine 1, glucose 20, calcium 8.1. ASSESSMENT AND PLAN: 1. Methicillin-resistant Staphylococcus aureus bacteremia. Continue with daptomycin and rifampin as directed by Dr. Vivas. He will receive a total of 6 weeks of treatment. 2. Ileus. Nasogastric tube was removed 4 days ago. We started this patient 1st on a clear liquid diet and then we advanced the diet to soft GI diet. He is tolerating that. Apparently he took 50% of his food in the morning. If he is eating at least 50%, the rest of the meals, tomorrow we will be able to remove his total parenteral nutrition. 3. Acute on chronic kidney disease, resolved. 4. Hyponatremia. Continue to monitor. 5. Hepatitis C. Aware. This patient is to follow up with Dr. Wheeler as an outpatient once this infection has cleared up to discuss treatment options. 6. Metabolic encephalopathy, resolved. 7. Thrombocytopenia. Stable. Likely secondary to liver cirrhosis. 8. Liver cirrhosis. Aware. 9. Status post incision and drainage of the sternoclavicular joint abscess secondary to methicillin-resistant Staphylococcus aureus. Continue with the same management as per Infectious Disease Department. 10. Gastrointestinal prophylaxis. Continue with Nexium. 11. Coagulopathy, stable. Likely secondary to liver cirrhosis. 12. Transaminitis, stable. 13. Nutritional status. Like I mentioned before, I will stop the total parenteral nutrition if he continues to tolerate p.o. 14. Physical deconditioning. This patient has severe weakness. Continue physical therapy twice a day and up in the chair every 4 hours during the daytime. 15. Hypomagnesemia. We will monitor. cc: Lee Granger MD
[2017-04-06] MEDS: CUBICIN 500 MG in NS 100 ML IV SCH (20:27)
[2017-04-07 07:31] LABS: MANUAL DIFF NEEDED? NO
[2017-04-07 08:01] LABS: AGAP 10; BUN 20 mg/dL (8-22); CALCIUM 8.2 mg/dL (8.8-10.2); CHLORIDE 101 mmol/L (98-107); COSMO 267; MAGNESIUM 1.5 mg/dL (1.5-2.7); POTASSIUM 4.6 mmol/L (3.5-5.1); SODIUM 132 mmol/L (136-145); TCO2 21 mmol/L (25-35)
[2017-04-07 08:21] LABS: BASO% 1.2 % (0.0-0.8); EOS# 0.26 X1000 (0.0-0.7); EOS% 3.7 % (0.0-10.0); HEMATOCRIT 25.6 % (42.0-52.0); HEMOGLOBIN 8.3 g/dL (14.0-18.0); LYMPH# 1.66 X1000 (1.2-3.4); LYMPH% 23.9 % (20.5-51.1); MCH 33.2 PG (27-31); MCHC 32.4 g/dL (33-37); MCV 102.4 FL (81-99); MONO% 18.7 % (1.7-9.3); NEUT% 52.5 % (42.2-75.2); PLT 105 X1000 (130-400)
[2017-04-07] MEDS: LIPOSYN 20% 250 ML IV SCH (08:46)
[2017-04-07] MEDS: RIFAMPIN 600 MG in NS 100 ML IV SCH (08:46)
[2017-04-07] MEDS: NEXIUM IV SCH ×2 (08:46→22:00)
[2017-04-07] MEDS: SODIUM CHLORIDE 0.9% INJ SCH ×2 (08:46→22:00)
[2017-04-07] MEDS: POTASSIUM CHLORIDE IV SCH ×7 (13:21)
[2017-04-07] MEDS: TPN ELECTROLYTES IV SCH ×7 (13:21)
[2017-04-07] MEDS: MAGNESIUM SULFATE IV SCH ×7 (13:21)
[2017-04-07] MEDS: [UNRECOGNIZED DRUG - OTHER] IV SCH ×7 (13:21)
--- NOTE | 2017-04-07 15:53 | PROGRESS NOTE ---
DATE: 04/07/2017 SUBJECTIVE: This patient states that he is feeling about the same. No acute events overnight. He is still getting physical therapy twice a day and he is still having weakness. The adoption social worker is on board and we are trying to find placement for this patient. He has started to tolerate his food better. I will stop his TPN today and I will continue with his diet. OBJECTIVE: Vital Signs: Temperature 98.4 degrees, pulse 99, respiratory rate 18, blood pressure 122/72, oxygen saturation 100% on room air. HEENT: Head normocephalic. No trauma. PERRLA. Neck: Supple. No JVD. No masses. Central trachea. Chest: Clear to auscultation. No wheezing. No rales. He has a clean dressing at the level of the left upper thorax. Abdomen: Soft, nontender, nondistended. No hepatosplenomegaly. Extremities: 1+ lower extremity edema. He has chronic changes at the level of the hands, feet, knees and elbows with some rigidity. He has chronic psoriasis. Neurological Examination: The patient is alert and oriented x3. He moves all 4 extremities. He has weakness. LABORATORY: WBC 6.9, hemoglobin 8.3, hematocrit 25.6, platelets 105,000. Sodium 132, potassium 4.6, chloride 101, bicarbonate 21, BUN 20, creatinine 1, glucose 92, calcium 8.2, magnesium 1.5. ASSESSMENT AND PLAN: 1. Methicillin-resistant Staphylococcus aureus bacteremia. Continue with daptomycin and rifampin as directed by Dr. Vivas. He will receive a total of 6 weeks of treatment. 2. Ileus. The NG tube was removed 5 days ago and we started the patient on a clear liquid diet and then we advanced the diet to a soft GI diet. He is tolerating that. Also he was on TPN but I just stopped it. 3. Acute on chronic kidney disease resolved. 4. Hyponatremia. Continue to monitor. 5. Hepatitis C. This patient is to follow up with Dr. Wheeler as an outpatient once this infection has cleared up to discuss treatment options. 6. Metabolic encephalopathy resolved. 7. Thrombocytopenia stable, likely secondary to liver cirrhosis. 8. Liver cirrhosis. Aware. 9. Status post I and D of the sternoclavicular joint abscess secondary to Methicillin-resistant Staphylococcus aureus. Continue with the same management as per Infectious Disease Department. 10. Gastrointestinal prophylaxis. Continue with Nexium. 11. Coagulopathy stable secondary to liver cirrhosis. 12. Transaminitis stable. 13. Nutritional status. Like I mentioned before, I will stop the patient TPN and I will continue feeding this patient with a soft GI diet. 14. Physical deconditioning. This patient has severe weakness. Continue with physical therapy twice a day and up in the chair every 4 hours during the day. cc: Lee Granger MD
[2017-04-07] MEDS: MORPHINE IV PRN ×2 (16:59→22:10)
[2017-04-07] MEDS: BACTROBAN OINTMENT TOP SCH (17:09)
--- NOTE | 2017-04-07 19:54 | PROGRESS NOTE ---
DATE: 04/07/2017 PRESENT ILLNESS: The patient has methicillin-resistant Staph aureus bacteremia and an associated septic sternoclavicular joint arthritis. MEDICATIONS: This is day 23 for the patient to be on daptomycin and day 17 for the patient to be on rifampin. PHYSICAL EXAMINATION: Vital Signs: Temperature is 98.5 degrees, pulse 93, respirations 18, blood pressure 134/70. General: This is a chronically ill-appearing malnourished middle-aged male. He is in no acute distress. Cardiovascular: Heart rate is regular. Lungs: Clear to auscultation. Chest: The patient's sternal clavicular site wound has a dressing. The dressing is intact. Abdomen: Soft and nontender. Extremities: The patient has a PICC in his left arm. The site is not erythematous or swollen. Integument: Patient has a diffuse scaling type of rash which has been diagnosed as psoriasis. LABORATORY AND X-RAY: CBC today showed a white count of 6940, hemoglobin 8.3 and platelet count 105,000. Creatinine is 1, GFR is greater than 60. CPK was 93. ASSESSMENT AND PLAN: 1. The patient has bacteremia and septic arthritis. I plan to continue daptomycin and rifampin for 6 weeks. 2. Comorbidities include cirrhosis of the liver, end-stage renal disease, gastroesophageal reflux disease, severe psoriasis and malnutrition. 3. I have ordered a liver profile for tomorrow. cc: Clemente Vivas MD
[2017-04-07] MEDS: CUBICIN 500 MG in NS 100 ML IV SCH (22:35)
[2017-04-08 06:35] LABS: MANUAL DIFF NEEDED? NO
[2017-04-08 06:47] LABS: BASO% 1.3 % (0.0-0.8); EOS# 0.25 X1000 (0.0-0.7); EOS% 3.3 % (0.0-10.0); HEMATOCRIT 25.2 % (42.0-52.0); HEMOGLOBIN 8.1 g/dL (14.0-18.0); LYMPH# 1.95 X1000 (1.2-3.4); LYMPH% 25.5 % (20.5-51.1); MCH 31.9 PG (27-31); MCHC 32.1 g/dL (33-37); MCV 99.2 FL (81-99); MONO# 1.07 X1000 (0.11-0.59); MPV 11.6 FL (7.4-10.4); NEUT% 55.9 % (42.2-75.2); PLT 108 X1000 (130-400); RBC 2.54 XMIL (4.7-6.1)
[2017-04-08 07:05] LABS: AGAP 11; BUN 20 mg/dL (8-22); CALCIUM 8.3 mg/dL (8.8-10.2); CHLORIDE 100 mmol/L (98-107); COSMO 264; POTASSIUM 4.3 mmol/L (3.5-5.1); SODIUM 131 mmol/L (136-145); TCO2 20 mmol/L (25-35)
[2017-04-08 07:14] LABS: ALBUMIN 2.3 g/dL (3.5-5.0); ALKALINE PHOSPHATASE 70 U/L (32-122); DIRECT BILIRUBIN > 10.00 mg/dL (0.00-0.20); GOT 124 U/L (10-34); GPT 83 U/L (10-44); TOTAL BILIRUBIN 15.94 mg/dL (0.20-1.00); TOTAL PROTEIN 7.3 g/dL (6.3-8.3)
[2017-04-08] MEDS: RIFAMPIN 600 MG in NS 100 ML IV SCH (09:07)
[2017-04-08] MEDS: NEXIUM IV SCH ×2 (09:11→20:58)
[2017-04-08] MEDS: SODIUM CHLORIDE 0.9% INJ SCH ×2 (09:11→20:59)
--- NOTE | 2017-04-08 12:43 | PROGRESS NOTE ---
DATE: 04/08/2017 SUBJECTIVE: Patient reports feeling fine. No fever or chills noted. No acute issues overnight as per nursing staff. OBJECTIVE: Vital Signs: Temperature 98.1 degrees, heart rate 90, respiratory rate 18, blood pressure 131/76. O2 saturation 100% on room air. General: This is a chronically ill-looking, frail, 56-year-old -[place] male, looking older than his age, lying in bed, in no acute distress. HEENT: Head is normocephalic and atraumatic. Anicteric sclerae and pale conjunctivae. Mucous membranes moist. Neck supple. No JVD noted. No carotid bruits. No lymphadenopathy. No thyromegaly. Cardiovascular: S1, S2 heard. No murmurs, gallops, or rubs. Regular rate and rhythm. Respiratory: No wheezing or rales noted. Patient is not using any accessory muscles or work of breathing. He has a clean dressing at the level of the left upper thorax. Abdomen is soft, nontender to palpation. Nondistended. Bowel sounds present. No organomegaly. Extremity 1+ pitting edema in both lower extremities with chronic changes at the level of the hands, feet, knees, and elbows. He also has signs of chronic psoriasis. Neurologic: Patient alert and oriented x3. A little bit slowing mentation but patient moves 4 extremities. LABORATORY DATA: White cell count 10.64, hemoglobin 8.1, hematocrit 35.2, platelets 108,000. BMP unremarkable except mild hyponatremia of 131. ASSESSMENT AND PLAN: 1. Methicillin-resistant Staphylococcus aureus bacteremia. The patient is on daptomycin and rifampin as directed by Dr. Vivas who is planning to provide 6 weeks of total treatment. 2. That condition resolved. Patient is on regular soft gastrointestinal diet. 3. Acute kidney injury, resolved. 4. Hyponatremia. Today, the sodium is 131. We will continue monitoring BMP. 5. Hepatitis C, aware. We know that he has this infection. Bilirubin is high today. He is supposed to have a follow up with Dr. Wheeler as an outpatient went once the infection has cleared up. 6. Metabolic encephalopathy, resolved. 7. Thrombocytopenia. That condition is improved. 8. Status post incision and drainage of the sternoclavicular joint abscess secondary to Methicillin-resistant Staphylococcus aureus. We will continue with the same treatment 9. Nutritional status: Patient is eating GI soft diet. 10. Physical deconditioning. Patient has developed severe weakness, and he needs to be sent to rehab facility. [employer] are working on the case. cc: Freedom Alan MD
[2017-04-08] MEDS: BACTROBAN OINTMENT TOP SCH (19:56)
[2017-04-08] MEDS: MORPHINE IV PRN (21:17)
[2017-04-08] MEDS: CUBICIN 500 MG in NS 100 ML IV SCH (21:18)
[2017-04-09] MEDS: MORPHINE IV PRN ×2 (04:32→21:25)
[2017-04-09] MEDS: ZOFRAN IV PRN ×2 (04:32→21:23)
[2017-04-09] MEDS: SODIUM CHLORIDE 0.9% INJ SCH ×2 (09:37→21:24)
[2017-04-09] MEDS: RIFAMPIN 600 MG in NS 100 ML IV SCH (09:38)
[2017-04-09] MEDS: NEXIUM IV SCH ×2 (09:39→21:24)
--- NOTE | 2017-04-09 14:17 | PROGRESS NOTE ---
DATE: 04/09/2017 SUBJECTIVE: Patient reports feeling fine. No fever or chills reported. No acute issues as noted for as per nursing staff. OBJECTIVE: Vital Signs: Temperature 98.1 degrees, heart rate 98, respiratory rate 20, blood pressure 124/74, O2 saturation 97% on room air. General Examination: This is a chronically ill- looking, frail, 56-year-old male, lying in bed, in no acute distress. HEENT: Head is normocephalic, atraumatic. Anicteric sclerae and pale conjunctivae. Mucous membranes moist. Neck: Supple. No JVD noted. No carotid bruits. No lymphadenopathy. No thyromegaly. Cardiovascular: S1, S2 heard. No murmurs, gallops, or rubs. Regular rate and rhythm. Respiratory: No wheezing or rales noted. Patient is not using any accessory muscles or having work of breathing. He had a clean dressing at the level of the left upper thorax. Abdomen: Soft, nontender to palpation. Bowel sounds present. No organomegaly. Extremities: 1+ pitting edema in both lower extremities with chronic changes at the level of the hands, feet, knees and elbows that is compatible with chronic psoriasis. Neurological: Patient alert and oriented x3. Moves 4 extremities. LABORATORY DATA: Reviewed. ASSESSMENT AND PLAN: 1. Methicillin-resistant Staphylococcus aureus bacteremia. Plan is to invite Dr. Vivas from Infectious Disease. He is to provide daptomycin and rifampin for 6 weeks. Patient already has a PICC line. 2. Ileus. That condition is resolved. Patient is on regular diet. 3. Acute kidney injury. Resolved. 4. Hyponatremia. Sodium is still low. We will continue monitoring [facility]. 5. Hepatitis C. We are aware of this infection. Bilirubin was high yesterday, so plan is to keep checking while this patient he is here [facility], and when the infection is treated and when the patient has cleared up he is supposed to see Dr. Wheeler from Gastroenterology. 6. Metabolic encephalopathy. Resolved. 7. Thrombocytopenia. Improved. 8. Status post incision and drainage of the sternoclavicular joint abscess. Aware. 9. Nutritional status. Patient is using eating okay. 10. Physical deconditioning. Patient has developed severe weakness and we are waiting for social security benefits interviewer to help us in finding a bed for him in a rehab facility. cc: Freedom Alan MD [facility]
[2017-04-09] MEDS: BACTROBAN OINTMENT TOP SCH (19:10)
--- NOTE | 2017-04-09 19:39 | PROGRESS NOTE ---
DATE: 04/09/2017 PRESENT ILLNESS: The patient has a methicillin-resistant Staph aureus bacteremia and an associated septic sternoclavicular joint arthritis. MEDICATIONS: This is the 24th day of treatment with daptomycin and the 18th day of treatment with rifampin since the patient's first repeat blood culture was negative. PHYSICAL EXAMINATION: Vital Signs: Temperature is 97.7, pulse 96, respirations 20, blood pressure 135/63. General: This is a ill and malnourished-appearing middle-aged male. He is in no acute distress. Chest: The patient's sternoclavicular joint wound still has beefy red tissue. It is gradually closing. Lungs: Clear to auscultation. Cardiovascular: Regular heart rate. Abdomen: Soft and nontender. Neurologic: Patient is lethargic tonight. LAB AND X-RAY: There is no new x-ray. The patient's CBC shows a white count of 7640, hemoglobin 8.1 and platelet count 108,000. Creatinine is 1.0, GFR is greater than 60. AST is 124, bilirubin is 15.94. ASSESSMENT AND PLAN: Patient has methicillin-resistant Staph aureus bacteremia and septic sternoclavicular joint arthritis. The plan is to continue with his current antimicrobial agents. I am going to order a CPK to be drawn tomorrow because the patient is on daptomycin. COMORBIDITIES: Include cirrhosis of the liver, end-stage renal disease, gastroesophageal reflux disease and severe psoriasis and malnutrition. cc: Clemente Vivas MD
[2017-04-09] MEDS: CUBICIN 500 MG in NS 100 ML IV SCH (21:22)
[2017-04-10 06:52] LABS: MANUAL DIFF NEEDED? NO
[2017-04-10 07:04] LABS: BASO% 1.1 % (0.0-0.8); EOS# 0.32 X1000 (0.0-0.7); EOS% 4.3 % (0.0-10.0); HEMATOCRIT 24.7 % (42.0-52.0); HEMOGLOBIN 8.2 g/dL (14.0-18.0); LYMPH% 24.1 % (20.5-51.1); MCH 32.8 PG (27-31); MCHC 33.2 g/dL (33-37); MCV 98.8 FL (81-99); MONO# 0.92 X1000 (0.11-0.59); MONO% 12.3 % (1.7-9.3); MPV 11.7 FL (7.4-10.4); NEUT% 58.2 % (42.2-75.2); PLT 102 X1000 (130-400)
[2017-04-10 07:11] LABS: AGAP 12; ALBUMIN 2.2 g/dL (3.5-5.0); ALKALINE PHOSPHATASE 79 U/L (32-122); BUN 18 mg/dL (8-22); CALCIUM 8.2 mg/dL (8.8-10.2); CHLORIDE 101 mmol/L (98-107); COSMO 266; GOT 107 U/L (10-34); GPT 86 U/L (10-44); POTASSIUM 4.3 mmol/L (3.5-5.1); SODIUM 132 mmol/L (136-145); TCO2 19 mmol/L (25-35); TOTAL PROTEIN 7.5 g/dL (6.3-8.3)
[2017-04-10 07:20] VITALS: BP 130/71
[2017-04-10 07:27] LABS: TOTAL BILIRUBIN 17.06 mg/dL (0.20-1.00)
[2017-04-10] MEDS: NEXIUM IV SCH (08:27)
[2017-04-10] MEDS: RIFAMPIN 600 MG in NS 100 ML IV SCH (08:28)
[2017-04-10] MEDS: BACTROBAN OINTMENT TOP SCH (09:37)
--- NOTE | 2017-04-10 14:17 | DISCHARGE SUMMARY ---
ADMISSION DATE: 03/08/2017 DISCHARGE DATE: 04/10/2017 CONSULTATIONS: 1. José Miguel Rosado MD (Cardiology) 2. Geronimo Wheeler MD (Gastroenterology) 3. Cullen Robertson MD (General Surgery) 4. Salina Bonilla MD (Neurology) 5. Magdiel Ramirez MD (Nephrology) 6. Teddy Busch MD (Pulmonology) 7. Clemente Vivas MD (Infectious Disease) DISCHARGE DIAGNOSES: 1. Methicillin resistant Staphylococcus aureus bacteremia. The patient will continue on IV antibiotics as directed by Dr. Clemente Vivas with Infectious Disease. He will receive a total of 6 weeks of treatment being discharged to [facility]. 2. Ileus status post NG tube removal. Will remain on a GI soft diet. 3. Acute on chronic kidney disease. 4. Hyponatremia, stable. 5. Hepatitis C. The patient will be monitored by Dr. Wheeler and will continue to follow as an outpatient. 6. Metabolic encephalopathy, resolved. 7. Thrombocytopenia, stable secondary to liver cirrhosis. 8. Liver cirrhosis, aware. 9. Status post incision and drainage of sternoclavicular joint abscess secondary to methicillin resistant Staphylococcus aureus. Again will continue with IV antibiotics. 10.Gastroesophageal reflux disease. Continue with PPI. 11.Coagulopathy, stable secondary to liver cirrhosis. 12.Transaminase, stable. NUTRITIONAL STATUS: 1. The patient was started on a GI soft diet tolerating well. 2. Physical deconditioning: The patient has severe weakness. He has worked with physical therapy and has been accepted to [facility]. HOSPITAL COURSE: Mr. Moralez is a 56-year-old male with a longstanding history of hepatitis C, gout, hypertension, and psoriasis for which he received Humira, last dose 1 month ago on the day of his admission. He reported developing slow, increasing swelling at the sternoclavicular joint areae. It is very tender to touch as well as warm to the touch. He has been to the ED on 3 separate occasions over the last 10 days and was beginning pain medications and muscle relaxers and scheduled to follow up with the general surgeon, but he did not. He came to the ED because he was now having systemic complaints of diffuse arthralgias, poor appetite, fever and chills. He was noted to have a white count of 20, potassium 6.1, BUN 106, creatinine 4.7. Total bilirubin 16. AST 213, ALT 75. His ammonia was 85. Lactate 3.3. CT of the chest did show a left supraclavicular mass with gas bubbles which could include a subcutaneous access or super radiating node or necrotic neoplasm. Head and neck CT were normal. He was admitted to the ICU with septicemia due to his critical state and started on broad-spectrum antibiotics. Consult with Infectious Disease and Nephrology as well as GI and General Surgery. General Surgery did needle the joint. It was already growing gram-positive cocci. He was then taken to the operating room for incision and drainage by Dr. Joaquin. Antibiotics were managed by Dr. Clemente Vivas. On the first initial echo they were suspicious of endocarditis, however, that was ruled out. He underwent a CT of the chest, abdomen and pelvis that did show a small bowel obstruction and NG tube was placed. GI was following the patient in reference to his hepatitis C. He was also monitored closely by Nephrology for his acute on chronic kidney disease. He did not require any intervention. The patient was able to move initially out of the ICU. He did develop some respiratory distress and was moved back to the ICU and monitored for a few days with pulmonary consult. He again continued to be followed by Infectious Disease and General Surgery as well as GI throughout the duration of his hospital stay. His small bowel obstruction did resolve. He was able to get his NG tube out. His diet was slowly advanced. He is now tolerating a soft mechanical diet. He has developed severe weakness. Physical therapy has worked with him. [employer] Cart [employer] have also been working on rehab facility. He has been accepted to [facility]. The patient will continue on IV antibiotics for his MRSA bacteremia with Dr. Vivas for a total of 6 weeks. He already has a PICC line. He will follow up with Dr. Wheeler for his hepatitis C. He has been weaned off his oxygen and has been on room air for several days. He is appropriate for discharge today. PHYSICAL EXAMINATION: Vital signs: Temperature 98.5, heart rate 96, respiratory rate 16, blood pressure 130/71. O2 100% on room air. DISCHARGE DIET: Mechanical soft. DISCHARGE MEDICATIONS: As per Dr. Argueta. Please see MAR. FOLLOWUP: [facility]. Moralez [facility] He will follow up with Dr. Clemente Vivas as well as Dr. Wheeler with GI as well as his primary care physician, Dr. Tyrell Dagn. The patient can return to the ED for any worsening symptoms. Discharge time 40 minutes. Dictated by JEAN MARIE Lynch for Freedom Alan MD cc: MD Tyrell Anderson MD
--- NOTE | 2017-06-20 10:17 | ED EKG INTERP ---
This chart was entered by Kristy Astorga Scribe, acting as scribe for Pierre Swann MD. EKG Interpretation - EKG Time of EKG reading by physician:: 17:32 EKG Read and Signed by:: Pierre Swann EKG Interpretation (*Must complete 3 of following elements*): Normal Rate: 97 Rhythm: Normal Sinus Rhythm Comments: Normal ECG Attestation - Physician/ MARIAM Attestation Patient care was provided by Advanced Practice Provider:: Yes Advanced Practice Provider documentation review:: The Mid-level provider documentation, treatment plan and medical decision making was reviewed by the physician who agrees with all treatment and medical decision making by the MLP. The physician spent face to face time with patient:: No Advanced Practice Provider documentation review:: Supervising physician onsite and consulted in the evaluation and care of this patient. The physician did not have a face to face encounter with the patient. This chart was documented by the indicated scribe, (Kristy Astorga Scribe) and accurately reflects the services I performed and decisions made by me, Pierre Swann MD, as attested by the provider's signature.
== END 2017-04-10 14:05 ==
LOC: ED 16:21 → ICU 16:22 → SUATTDRO 16:22 → ICU 22:49 → 3N 03-18 14:18 → ICU 03-22 17:12 → 3S 03-26 18:28 → 3N 04-04 14:37
PROVIDERS: ATTEND Internal Medicine

== ENCOUNTER 2019-10-10 08:53 | Inpatient (IN) ==
[2019-10-10] MEDS ORDERED: D50W SYRINGE IV ONE ×2 (09:18→14:46)
[2019-10-10] MEDS ORDERED: NS 1,000 ML IV ONE ×3 (09:33→10:18)
[2019-10-10 09:38] LABS: RBC 1.89 XMIL (4.7-6.1); WBC 12.62 X1000 (4.8-10.8)
[2019-10-10 09:39] LABS: BASO# 0.04 X1000 (0.0-0.2); BASO% 0.3 % (0.0-0.8); EOS# 0.03 X1000 (0.0-0.7); EOS% 0.2 % (0.0-10.0); HEMATOCRIT 17.7 % (42.0-52.0); HEMOGLOBIN 5.6 g/dL (14.0-18.0); IMM GRAN# 0.05 X1000 (0.0-0.04); IMM GRAN% 0.4 % (0.0-0.5); LYMPH# 2.02 X1000 (1.2-3.4); MCH 29.6 PG (27-31); MCHC 31.6 g/dL (33-37); MCV 93.7 FL (81-99); MONO# 1.03 X1000 (0.11-0.59); MONO% 8.2 % (1.7-9.3); MPV 10.7 FL (7.4-10.4); NEUT# 9.45 X1000 (1.4-6.5); NEUT% 74.9 % (42.2-75.2); PLT 209 X1000 (130-400); RDW 23.5 % (11.5-14.5)
[2019-10-10 09:43] LABS: BE -19.1 mmoll (-3.0-3.0); BLOOD TYPE ARTERIAL; HCO3-(ACT) 10.1 mmoll (20.0-26.0); METHB 0.8 % (0.0-1.5); O2(CT) 8.8 mL/dL (15.0-23.0); O2HB 96.7 % (95.0-99.0); PCO2(98.6) 24 mmHg (35-45); PO2(98.6) 107 mmHg (60-100); SAMPLE BLOOD; SAO2 100.7 % (95.0-100.0)
[2019-10-10 09:51] LABS: INR 1.89; PROTIME 22.8 Seconds (11.0-16.0)
[2019-10-10 09:52] LABS: PTT 40.6 Seconds (22.3-41.8)
[2019-10-10 09:53] LABS: ALBUMIN 1.9 g/dL (3.5-5.0); CALCIUM 8.2 mg/dL (8.8-10.2); CREATININE 3.4 mg/dL (0.7-1.2); TOTAL BILIRUBIN 2.5 mg/dL (0.20-1.00); TOTAL PROTEIN 7.1 g/dL (6.3-8.3)
[2019-10-10 09:55] LABS: OCCULT BLOOD 1 POSITIVE (NEGATIVE)
[2019-10-10 10:06] LABS: MODALITY ROOM AIR
[2019-10-10 10:07] LABS: ALLEN TEST YES; pH(98.6) 7.14 (7.35-7.45)
[2019-10-10 10:09] LABS: THB 6.3 g/dL (11.5-17.4)
[2019-10-10 10:18] LABS: URINE SOURCE CLEAN CATCH
[2019-10-10] MEDS ORDERED: VANCOMYCIN 1 GM/NS 1 GM/250 ML IVPB IV ONE (10:18)
[2019-10-10] MEDS ORDERED: ZOSYN 2.25 GM in NS 50 ML IV ONE (10:18)
[2019-10-10] MEDS ORDERED: LR 1,000 ML IV ONE ×2 (10:22→10:34)
[2019-10-10 10:24] LABS: CK INDEX 3.4 (0.0-2.5); CK-MB 18.41 ng/mL (0.0-5.0)
[2019-10-10 10:24] LABS: BILIRUBIN URINE NEGATIVE (NEGATIVE); BLOOD URINE SMALL (NEGATIVE); COLOR YELLOW; GLUCOSE URINE NEGATIVE (NEGATIVE); KETONE URINE NEGATIVE (NEGATIVE); LEUKOCYTES URINE SMALL (NEGATIVE); NITRITE URINE NEGATIVE (NEGATIVE); PROTEIN URINE TRACE mg/dL (NEGATIVE); SP GRAVITY URINE 1.016; TURBIDITY URINE CLEAR (CLEAR); UROBILINOGEN URINE 2 mg/dL (NORMAL)
[2019-10-10 10:25] LABS: UR EPITHELIAL CELLS <10 /HPF (<10); URINE BACTERIA NEGATIVE /HPF; URINE RBC <10 /HPF (<10); URINE WBC <10 /HPF (<10)
--- NOTE | 2019-10-10 10:30 | EKG Report ---
Test Performed on : 10/10/2019 09:00:18 AM Test Reason : sob Blood Pressure : / mmHG Vent. Rate : 105 BPM Atrial Rate : 105 BPM P-R Int : 124 ms QRS Dur : 070 ms QT Int : 372 ms P-R-T Axes : 047 052 018 degrees QTc Int : 491 ms Sinus tachycardia. Otherwise normal ECG When compared with ECG of 08-MAR-2017 17:32, QT has lengthened Unconfirmed Result
[2019-10-10] MEDS ORDERED: LR 400 ML IV ONE (10:34)
[2019-10-10] MEDS ORDERED: ZOFRAN IV ONE (10:37)
--- NOTE | 2019-10-10 10:42 | PROVIDER DOCUMENTATION ---
This chart was entered by Kacey Bernabe Scribe, acting as scribe for David Dickerson MD. HPI-Respiratory General <Carey Joaquin - Last Filed: 10/10/19 15:06> - General Source: patient, old records - History of Present Illness-Resp Quality of Pain: reports: none Severity in ED: reports: mild Onset/Duration: reports: last night Timing: reports: still present Context: reports: other Exposure: reports: unknown cause Cough Quality/Degree: reports: no cough Episode Frequency: rare episodes Current Respiratory Medication Therapy: Initiated see nurses note Modifying Factors: improves with: nothing Associated Symptoms: reports: shortness of breath, short of breath Similar Symptoms Previously?: Yes Recently seen or treated by another doctor?: Yes (ED 2 weeks ago) <David Dickerson - Last Filed: 10/10/19 15:42> - General Chief Complaint: SEPSIS ALERT - P Stated Complaint: SOB Time Seen by Provider: 10/10/19 09:09 Allergies/Adverse Reactions: Patient Allergies Allergy/AdvReac Type Severity Reaction Status Date / Time No Known Allergies Allergy Verified 09/23/19 12:49 Home Medications: Home Medication List Medication Instructions Recorded Confirmed Last Taken Type Cyclobenzaprine [Flexeril] 10 mg PO TID PRN PRN #20 tablet 02/26/17 03/08/17 02/28/17 07:00 Rx Allopurinol 100 mg PO DAILY 02/28/17 03/08/17 02/28/17 07:00 History Clonidine HCl 0.1 mg PO DAILY 02/28/17 03/08/17 02/28/17 07:00 History Famotidine [Pepcid] 20 mg PO DAILY #20 tablet 02/28/17 03/08/17 Unknown Rx Gabapentin 300 mg PO HS 02/28/17 03/08/17 02/27/17 20:00 History Lisinopril/Hydrochlorothiazide 1 tab PO DAILY 02/28/17 03/08/17 02/28/17 07:00 History [Lisinopril-Hctz 20-25 mg Tab] Methocarbamol [Robaxin] 500 mg PO BID #30 tablet 02/28/17 03/08/17 Unknown Rx Oxycodone HCl/Acetaminophen 1 each PO TID 02/28/17 03/08/1717 12:00 History [Oxycodone-Acetaminophen 10-325] Esomeprazole [Nexium] 40 mg IV Q12H vial 04/10/17 Unknown Rx Labetalol 10 mg IV Q4H PRN PRN #0 syringe 04/10/17 Unknown Rx Morphine 1 - 2 mg IV Q4H PRN PRN #0 syringe 04/10/17 Unknown Rx Mupirocin Ointment [Bactroban 1 applicatn TOP DAILY #0 tube 04/10/17 Unknown Rx Ointment] Albuterol Sulfate Inhaler 2 puff INH Q6H PRN PRN #1 inhaler 09/23/19 Unknown Rx [Ventolin Hfa] Azithromycin 250 mg PO DAILY #6 tab 09/23/19 Unknown Rx Cetirizine HCl [Zyrtec] 10 mg PO DAILY #30 cap 09/23/19 Unknown Rx Prednisone 50 mg PO DAILY #5 tab 09/23/19 Unknown Rx - History of Present Illness-Resp Nature of Presenting Problem: 59 y/o male presents to ED with SOB onset last night. Pt reports he was seen in ED 2 weeks ago for same, but he feels worse again now. Pt states he could not sleep last night due to his symptoms. Pt also complains of bright red bloody diarrhea for the past few days, but it has since subsided. Oral temp in triage 94. Rectal temp 92. FSBS 65. Pt is alert and oriented. (David Dickerson) Review of Systems - Adult - REVIEW OF SYSTEMS - ADULT Constitutional: denies: chills, fever Eyes: reports: no symptoms reported Ears, Nose, Mouth & Throat: reports: no symptoms reported Cardiovascular: denies: chest pain, palpitations Respiratory: reports: shortness of breath. denies: cough Gastrointestinal: reports: hematemesis, diarrhea Genitourinary: reports: no symptoms reported Musculoskeletal: reports: no symptoms reported Integumentary: reports: no symptoms reported Neurological: reports: no symptoms reported Psychiatric: reports: no symptoms reported Endocrine: reports: no symptoms reported Hematologic/Lymphatic: reports: no symptoms reported Allergic/Immunologic: reports: no symptoms reported All Other Systems: Reviewed and Negative <David Dickerson - Last Filed: 10/10/19 15:42> Past History - Adult - PAST MEDICAL HISTORY-ADULT Review of Records: reports: Old Records Reviewed, Nursing Assessment Review, Medications Reviewed Major Childhood Illnesses: reports: denies history Cardiovascular: reports: HTN Respiratory: reports: asthma Gastrointestinal: reports: hepatitis (C) Obstetrical/Gynecological: reports: denies history Genitourinary: reports: denies history Musculoskeletal: reports: chronic pain Neurological: reports: denies history Endocrine/Immune: reports: denies history Other Conditions: reports: MRSA - PRIOR SURGERIES/PROCEDURES Surgical/Procedure History: reports: orthopedic (extremity) (feet) - IMMUNIZATION STATUS Childhood Immunizations: See Nurse Assessment Flu Vaccine: See Nurse Assessment - FAMILY HISTORY Family History: reviewed, not pertinent - SOCIAL HISTORY Smoking: less than 1 pack/day Provider spent 3-5 mins advising pt. on dangers of tobacco.: Discussed manners to quit use, and f/u contacts for add'l counseling. Substance Use: none presently/history of abuse, alcohol Alcohol Use Frequency: sober (former use) Living Situation: family <David Dickerson - Last Filed: 10/10/19 15:42> Physical Exam-General - PHYSICAL EXAM-ADULT Initial Vital Signs Reviewed: Yes (tachy; rectal temp 92) - CONSTITUTIONAL General Appearance: alert, other (ill appearing). negative: appears well - EYES Eyes: PERRL/EOMI, pink conjunctivae - HEAD, EARS, NOSE, MOUTH & THROAT HENMT: normocephalic/atraumatic, moist mucous membranes, normal ENT inspection - NECK Neck: non-tender, full range of motion - RESPIRATORY Respiratory: chest non-tender, crackles (L lower lung) - CARDIOVASCULAR Cardiovascular: tachycardia - GASTROINTESTINAL (ABDOMEN) Abdominal Exam: abnormal bowel sounds (hypoactive), distended, tenderness (diffuse) - MUSCULOSKELETAL Back Exam: normal inspection Extremity: normal range of motion, other (chronic lymphedema of bilateral lower extremities) - SKIN Integumentary: normal color, warm/dry - NEUROLOGIC Neurologic: grossly normal - PSYCHIATRIC Psych/Mental Status: normal mood/affect, normal thought content, normal thought process, oriented x 3 <David Dickerson - Last Filed: 10/10/19 15:42> - HEART Score HEART Score: History: Slightly Suspicious HEART Score: ECG: Normal HEART Score: Age: 45-65 Years HEART Score: Risk Factors for Atherosclerotic Disease: 1 or 2 Risk Factors HEART Score: Troponin: < or = Normal Limit Total HEART Score:: 2 <David DickersonElmo - Last Filed: 10/10/19 15:42> Progress - PLAN OF CARE/RESULTS Result Diagrams: 10/10/19 09:25 10/10/19 09:25 - CT/MRI 1 Impression: See EMR Report (EXAM: CT THORAX/ABD/PELVIS W/O CON INDICATION: sepsis, blood loss, distention TECHNIQUE: This exam was performed using automated exposure control, adjustment of mA or kV according to patient size, and/or use of iterative reconstruction technique. COMPARISON: CTA chest dated 09/23/[address] of the chest, abdomen, and pelvis dated 03/22/2017 FINDINGS: CHEST: There is excessive respiratory motion. This along with lack of IV contrast limits the study. There is interstitial thickening and patchy infiltrate seen throughout both lungs most likely representing edema. A component of infection is possible. There is no significant pleural fluid collection and no pneumothorax. The heart is borderline to mildly prominent but stable. No obvious lymphadenopathy is appreciated given the limitations of an unenhanced study. There is a large amount of fluid in the esophagus, which is distended, indicating reflux. ABDOMEN/PELVIS: The liver exhibits a diffusely nodular contour suggesting cirrhosis. There is large volume ascites tracking around the liver and spleen and layering in the pelvis. There appear to be a few layering calcified stones in the gallbladder lumen. There is stable calcifications at the periphery of the spleen. There is no splenomegaly. The pancreas and adrenal glands are grossly unremarkable as imaged. There are a couple of nonobstructing intrarenal stones on the right. There is no hydronephrosis. There is a Shen catheter in the urinary bladder and the bladder is nondistended. There is no evidence of bowel obstruction. The ascending colon appears somewhat thickened. This is probably due to underdistention as well as the surrounding ascites. A component of colitis cannot completely be excluded. No small bowel wall thickening is appreciated. There is body wall anasarca. There is no evidence of acute osseous abnormality. IMPRESSION: 1.Limited study due to motion and lack of contrast. 2.Interstitial thickening and patchy infiltrate throughout both lungs likely representing mild interstitial edema. A component of infection is possible in the right clinical scenario. 3.Distended esophagus containing fluid suggesting reflux. 4.Large volume ascites. 5.Cirrhotic liver. 6.Thickening of the ascending colon, which could be, at least in part, due to underdistention and the surrounding ascites. Colitis is not excluded. 7.Body wall anasarca. 8.Other incidental/nonacute findings detailed above. Electronically signed by Neftali Claire 10/10/2019 12:09 PM 10/10/19 1209 Interpreting Physician: Neftali Claire MD Dictated Date/Time: 10/10/19 1158 cc: Carey Joaquin; Tyrell Dang MD) - CONSULTS/PCP/HOSPITALIST Notification #1 *Consult/PCP/Hospitalist*: DR. PACKER Time Discussed: 10:26 Consult Disposition: Admit (ICU) <Carey Joaquin - Last Filed: 10/10/19 15:06> - PLAN OF CARE/RESULTS Result Diagrams: 10/10/19 09:25 10/10/19 14:10 - EKG 1 Time of EKG reading by physician:: 09:00 EKG Read and Signed by:: David Dickerson EKG Interpretation (*Must complete 3 of following elements*): Normal Rate: 105 Rhythm: Sinus tach Davidson: normal QRS: normal HI Interval: normal ST Wave: normal - CT/MRI 1 CT Study: Abdomen, Pelvis, Thorax Impression: See EMR Report - CONSULTS/PCP/HOSPITALIST Notification #1 *Consult/PCP/Hospitalist*: JEAN MARIE with Dr. Ramirez Time Discussed: 15:00 Consult Disposition: Admit #2 Consult: Dr. Dang Consult Disposition: Admit <David Dickerson - Last Filed: 10/10/19 15:42> - PLAN OF CARE/RESULTS Progress/Plan/Lab Results: Vital Signs - 8 hr 10/10/19 08:57 10/10/19 09:05 10/10/19 09:27 Temperature 94 F L 92.5 F L Pulse Rate 105 H 101 H Respiratory Rate 22 22 26 H Blood Pressure 131/64 122/69 O2 Sat by Pulse Oximetry 100 99 10/10/19 10:16 10/10/19 10:37 10/10/19 11:01 Temperature 91.8 F L 91.8 F L Pulse Rate 100 H 101 H 101 H Respiratory Rate 30 H 33 H 28 H Blood Pressure 112/66 130/85 124/71 O2 Sat by Pulse Oximetry 100 99 96 10/10/19 11:30 10/10/19 11:42 10/10/19 11:45 Temperature 91 F L 91.5 F L Pulse Rate 97 H 95 H 95 H Respiratory Rate 26 H 29 H 30 H Blood Pressure 104/60 104/60 102/46 O2 Sat by Pulse Oximetry 96 98 96 10/10/19 11:59 10/10/19 12:00 10/10/19 12:13 Temperature 91.4 F L 91.0 F L 91.4 F L Pulse Rate 93 H 73 92 H Respiratory Rate 27 H 22 25 H Blood Pressure 102/46 100/50 100/50 O2 Sat by Pulse Oximetry 96 95 94 L 10/10/19 12:15 10/10/19 12:17 10/10/19 12:30 Temperature 91.0 F L 91 F L Pulse Rate 92 H 83 81 Respiratory Rate 32 H 20 17 Blood Pressure 102/49 100/47 106/55 O2 Sat by Pulse Oximetry 93 L 96 96 10/10/19 12:32 10/10/19 12:45 10/10/19 12:47 Temperature 90.9 F L 91.0 F L 91 F L Pulse Rate 82 83 83 Respiratory Rate 22 17 20 Blood Pressure 97/50 98/54 103/50 O2 Sat by Pulse Oximetry 98 98 95 10/10/19 12:48 10/10/19 13:08 10/10/19 13:10 Temperature 90.9 F L 90.9 F L 90.8 F L Pulse Rate 82 80 78 Respiratory Rate 18 23 22 Blood Pressure 100/47 96/54 90/46 O2 Sat by Pulse Oximetry 92 L 92 L 88 L 10/10/19 13:14 10/10/19 13:20 10/10/19 13:26 Temperature 90.8 F L 90.9 F L Pulse Rate 74 68 69 Respiratory Rate 15 13 20 Blood Pressure 90/53 85/43 92/47 O2 Sat by Pulse Oximetry 83 L 97 95 10/10/19 13:30 10/10/19 13:33 10/10/19 13:45 Temperature 90.9 F L 90.9 F L Pulse Rate 71 73 Respiratory Rate 15 14 Blood Pressure 90/41 86/40 O2 Sat by Pulse Oximetry 95 94 L 93 L 10/10/19 13:58 02/02/20 14:10 10/10/19 14:21 Temperature 90.7 F L 90.7 F L Pulse Rate 77 78 Respiratory Rate 16 16 16 Blood Pressure 95/43 97/45 O2 Sat by Pulse Oximetry 96 96 10/10/19 14:22 10/10/19 14:30 10/10/19 14:57 Temperature 90.7 F L 90.5 F L Pulse Rate 78 78 82 Respiratory Rate 16 16 16 Blood Pressure 100/42 100/42 98/49 O2 Sat by Pulse Oximetry 97 97 100 10/10/19 14:58 10/10/19 15:17 10/10/19 15:31 Temperature 90.5 F L 90.5 F L 90.5 F L Pulse Rate 80 77 79 Respiratory Rate 16 18 18 Blood Pressure 92/46 91/46 88/45 O2 Sat by Pulse Oximetry 100 100 99 Laboratory Results - last 24 hr 10/10/19 10/10/19 10/10/19 09:16 09:25 09:25 WBC 12.62 H RBC 1.89 L Hgb 5.6 L* Hct 17.7 L MCV 93.7 MCH 29.6 MCHC 31.6 L RDW Std Deviation 23.5 H Plt Count 209 MPV 10.7 H Immature Gran % (Auto) 0.4 Neut % (Auto) 74.9 Lymph % (Auto) 16.0 L [place] % (Auto) 8.2 Eos % (Auto) 0.2 Baso % (Auto) 0.3 Immature Gran # (Auto) 0.05 H Neut # (Auto) 9.45 H Lymph # (Auto) 2.02 [place] # (Auto) 1.03 H Eos # (Auto) 0.03 Baso # (Auto) 0.04 PT INR PTT (Actin FS) D-Dimer, Quantitative Specimen Type Sample Site pH pCO2 pO2 HCO3 Base Excess Oxyhemoglobin ABG O2 Sat (Calculated) ABG O2 Saturation ABG Carboxyhemoglobin ABG Methemoglobin Aureliano Test A-a O2 Difference Total Hemoglobin Lactate Blood Gas Modality Vent Mode Spontaneous Rate FiO2 % Tidal Volume PEEP Sodium Potassium Chloride Carbon Dioxide Anion Gap BUN Creatinine Estimated GFR/1.73 m2 BUN/Creatinine Ratio Glucose POC Glucose 65 L Calculated Osmolality Calcium Magnesium Total Bilirubin AST ALT Alkaline Phosphatase Creatine Kinase Creatine Kinase Index CK-MB (CK-2) Troponin T High Sens [id number] Pept Total Protein Albumin Globulin Albumin/Globulin Ratio Plasma Lactate 9.9 H* Urine Source Urine Color Urine Turbidity Urine pH Ur Specific Hugo Urine Protein Ur Glucose (Stick) Ur Ketones (Stick) Urine Blood Urine Nitrite Urine Bilirubin Urobilinogen Dipstick Urine Leukocytes Urine WBC (Auto) Urine RBC (Auto) U Epithel Cells (Auto) Urine Bacteria (Auto) Stool Occult Blood Blood Type Antibody Screen Crossmatch 10/10/19 10/10/19 10/10/19 09:25 09:25 09:25 WBC RBC Hgb Hct MCV MCH MCHC RDW Std Deviation Plt Count MPV Immature Gran % (Auto) Neut % (Auto) Lymph % (Auto) [place] % (Auto) Eos % (Auto) Baso % (Auto) Immature Gran # (Auto) Neut # (Auto) Lymph # (Auto) [place] # (Auto) Eos # (Auto) Baso # (Auto) PT 22.8 H INR 1.89 PTT (Actin FS) 40.6 D-Dimer, Quantitative 12.01 H Specimen Type Sample Site pH pCO2 pO2 HCO3 Base Excess Oxyhemoglobin ABG O2 Sat (Calculated) ABG O2 Saturation ABG Carboxyhemoglobin ABG Methemoglobin Aureliano Test A-a O2 Difference Total Hemoglobin Lactate Blood Gas Modality Vent Mode Spontaneous Rate FiO2 % Tidal Volume PEEP Sodium 140 Potassium 5.0 Chloride 108 H Carbon Dioxide 10 L Anion Gap 22 BUN 48 H Creatinine 3.4 H Estimated GFR/1.73 m2 19 BUN/Creatinine Ratio 14 Glucose 65 L POC Glucose Calculated Osmolality 290 Calcium 8.2 L Magnesium Total Bilirubin 2.50 H AST 100 H ALT 49 H Alkaline Phosphatase 177 H Creatine Kinase 547 H Creatine Kinase Index 3.4 H CK-MB (CK-2) 18.41 H Troponin T High Sens Nqa-[id number]-Jhmrtpzdabi Pept 471 H Total Protein 7.1 Albumin 1.9 L Globulin 5.0 Albumin/Globulin Ratio 0.0 Plasma Lactate Urine Source Urine Color Urine Turbidity Urine pH Ur Specific Hugo Urine Protein Ur Glucose (Stick) Ur Ketones (Stick) Urine Blood Urine Nitrite Urine Bilirubin Urobilinogen Dipstick Urine Leukocytes Urine WBC (Auto) Urine RBC (Auto) U Epithel Cells (Auto) Urine Bacteria (Auto) Stool Occult Blood Blood Type Antibody Screen Crossmatch 10/10/19 10/10/19 10/10/19 09:25 09:25 09:25 WBC RBC Hgb Hct MCV MCH MCHC RDW Std Deviation Plt Count MPV Immature Gran % (Auto) Neut % (Auto) Lymph % (Auto) [place] % (Auto) Eos % (Auto) Baso % (Auto) Immature Gran # (Auto) Neut # (Auto) Lymph # (Auto) [place] # (Auto) Eos # (Auto) Baso # (Auto) PT INR PTT (Actin FS) D-Dimer, Quantitative Specimen Type Sample Site pH pCO2 pO2 HCO3 Base Excess Oxyhemoglobin ABG O2 Sat (Calculated) ABG O2 Saturation ABG Carboxyhemoglobin ABG Methemoglobin Aureliano Test A-a O2 Difference Total Hemoglobin Lactate Blood Gas Modality Vent Mode Spontaneous Rate FiO2 % Tidal Volume PEEP Sodium Potassium Chloride Carbon Dioxide Anion Gap BUN Creatinine Estimated GFR/1.73 m2 BUN/Creatinine Ratio Glucose POC Glucose Calculated Osmolality Calcium Magnesium 1.9 Total Bilirubin AST ALT Alkaline Phosphatase Creatine Kinase Creatine Kinase Index CK-MB (CK-2) Troponin T High Sens 47 H Wqf-D-Nsltltczqbs Pept Total Protein Albumin Globulin Albumin/Globulin Ratio Plasma Lactate Urine Source Urine Color Urine Turbidity Urine pH Ur Specific Hugo Urine Protein Ur Glucose (Stick) Ur Ketones (Stick) Urine Blood Urine Nitrite Urine Bilirubin Urobilinogen Dipstick Urine Leukocytes Urine WBC (Auto) Urine RBC (Auto) U Epithel Cells (Auto) Urine Bacteria (Auto) Stool Occult Blood Blood Type O POSITIVE Antibody Screen NEGATIVE Crossmatch See Detail 10/10/19 10/10/19 10/10/19 09:31 09:48 10:11 WBC RBC Hgb Hct MCV MCH MCHC RDW Std Deviation Plt Count MPV Immature Gran % (Auto) Neut % (Auto) Lymph % (Auto) [place] % (Auto) Eos % (Auto) Baso % (Auto) Immature Gran # (Auto) Neut # (Auto) Lymph # (Auto) [place] # (Auto) Eos # (Auto) Baso # (Auto) PT INR PTT (Actin FS) D-Dimer, Quantitative Specimen Type ARTERIAL Sample Site R RADIAL pH 7.14 L* pCO2 24 L pO2 107 H HCO3 10.1 L Base Excess -19.1 L Oxyhemoglobin 96.7 ABG O2 Sat (Calculated) 8.8 L ABG O2 Saturation 100.7 H ABG Carboxyhemoglobin 3.20 H ABG Methemoglobin 0.8 Aureliano Test YES A-a O2 Difference 13.0 Total Hemoglobin 6.3 L Lactate 10.00 H* Blood Gas Modality ROOM AIR Vent Mode Spontaneous Rate FiO2 % 21.0 Tidal Volume PEEP Sodium Potassium Chloride Carbon Dioxide Anion Gap BUN Creatinine Estimated GFR/1.73 m2 BUN/Creatinine Ratio Glucose POC Glucose Calculated Osmolality Calcium Magnesium Total Bilirubin AST ALT Alkaline Phosphatase Creatine Kinase Creatine Kinase Index CK-MB (CK-2) Troponin T High Sens [id number]-Htjvjpnbnrs Pept Total Protein Albumin Globulin Albumin/Globulin Ratio Plasma Lactate Urine Source CLEAN CATCH Urine Color YELLOW Urine Turbidity CLEAR Urine pH 5.0 Ur Specific Hugo 1.016 Urine Protein TRACE A Ur Glucose (Stick) NEGATIVE Ur Ketones (Stick) NEGATIVE Urine Blood SMALL A Urine Nitrite NEGATIVE Urine Bilirubin NEGATIVE Urobilinogen Dipstick 2 A Urine Leukocytes SMALL A Urine WBC (Auto) <10 Urine RBC (Auto) <10 U Epithel Cells (Auto) <10 Urine Bacteria (Auto) NEGATIVE Stool Occult Blood POSITIVE A Blood Type Antibody Screen Crossmatch 10/10/19 10/10/19 10/10/19 10:14 12:10 14:10 WBC RBC Hgb Hct MCV MCH MCHC RDW Std Deviation Plt Count MPV Immature Gran % (Auto) Neut % (Auto) Lymph % (Auto) [place] % (Auto) Eos % (Auto) Baso % (Auto) Immature Gran # (Auto) Neut # (Auto) Lymph # (Auto) [place] # (Auto) Eos # (Auto) Baso # (Auto) PT INR PTT (Actin FS) D-Dimer, Quantitative Specimen Type Sample Site pH pCO2 pO2 HCO3 Base Excess Oxyhemoglobin ABG O2 Sat (Calculated) ABG O2 Saturation ABG Carboxyhemoglobin ABG Methemoglobin Aureliano Test A-a O2 Difference Total Hemoglobin Lactate Blood Gas Modality Vent Mode Spontaneous Rate FiO2 % Tidal Volume PEEP Sodium Potassium Chloride Carbon Dioxide Anion Gap BUN Creatinine Estimated GFR/1.73 m2 BUN/Creatinine Ratio Glucose POC Glucose 154 H D Calculated Osmolality Calcium Magnesium Total Bilirubin AST ALT Alkaline Phosphatase Creatine Kinase 637 H Creatine Kinase Index 3.7 H CK-MB (CK-2) 23.61 H Troponin T High Sens Xph-W-Wqlmvvsdxyt Pept Total Protein Albumin Globulin Albumin/Globulin Ratio Plasma Lactate 11.2 H* Urine Source Urine Color Urine Turbidity Urine pH Ur Specific Hugo Urine Protein Ur Glucose (Stick) Ur Ketones (Stick) Urine Blood Urine Nitrite Urine Bilirubin Urobilinogen Dipstick Urine Leukocytes Urine WBC (Auto) Urine RBC (Auto) U Epithel Cells (Auto) Urine Bacteria (Auto) Stool Occult Blood Blood Type Antibody Screen Crossmatch 10/10/19 10/10/19 10/10/19 14:10 14:10 14:40 WBC RBC Hgb Hct MCV MCH MCHC RDW Std Deviation Plt Count MPV Immature Gran % (Auto) Neut % (Auto) Lymph % (Auto) [place] % (Auto) Eos % (Auto) Baso % (Auto) Immature Gran # (Auto) Neut # (Auto) Lymph # (Auto) [place] # (Auto) Eos # (Auto) Baso # (Auto) PT INR PTT (Actin FS) D-Dimer, Quantitative Specimen Type ARTERIAL Sample Site R RADIAL pH 6.81 L* pCO2 54 H* pO2 85 HCO3 6.8 L Base Excess -23.2 L Oxyhemoglobin 91.8 L ABG O2 Sat (Calculated) 6.6 L ABG O2 Saturation 95.1 ABG Carboxyhemoglobin 2.40 ABG Methemoglobin 1.1 Aureliano Test YES A-a O2 Difference 561.0 Total Hemoglobin 5.0 L Lactate 12.10 H* Blood Gas Modality VENTILATOR Vent Mode A/C Spontaneous Rate 16 FiO2 % 100.0 Tidal Volume 350 PEEP 5.0 Sodium 138 Potassium 5.9 H D Chloride 108 H Carbon Dioxide 8 L Anion Gap 22 BUN 45 H Creatinine 3.3 H Estimated GFR/1.73 m2 19 BUN/Creatinine Ratio 14 Glucose 67 L POC Glucose Calculated Osmolality 285 Calcium 7.9 L Magnesium Total Bilirubin AST ALT Alkaline Phosphatase Creatine Kinase Creatine Kinase Index CK-MB (CK-2) Troponin T High Sens 50 H [id number]-Pgitfifqcmk Pept Total Protein Albumin Globulin Albumin/Globulin Ratio Plasma Lactate Urine Source Urine Color Urine Turbidity Urine pH Ur Specific Hugo Urine Protein Ur Glucose (Stick) Ur Ketones (Stick) Urine Blood Urine Nitrite Urine Bilirubin Urobilinogen Dipstick Urine Leukocytes Urine WBC (Auto) Urine RBC (Auto) U Epithel Cells (Auto) Urine Bacteria (Auto) Stool Occult Blood Blood Type Antibody Screen Crossmatch 10/10/19 10/10/19 14:46 15:19 WBC RBC Hgb Hct MCV MCH MCHC RDW Std Deviation Plt Count MPV Immature Gran % (Auto) Neut % (Auto) Lymph % (Auto) [place] % (Auto) Eos % (Auto) Baso % (Auto) Immature Gran # (Auto) Neut # (Auto) Lymph # (Auto) [place] # (Auto) Eos # (Auto) Baso # (Auto) PT INR PTT (Actin FS) D-Dimer, Quantitative Specimen Type Sample Site pH pCO2 pO2 HCO3 Base Excess Oxyhemoglobin ABG O2 Sat (Calculated) ABG O2 Saturation ABG Carboxyhemoglobin ABG Methemoglobin Aureliano Test A-a O2 Difference Total Hemoglobin Lactate Blood Gas Modality Vent Mode Spontaneous Rate FiO2 % Tidal Volume PEEP Sodium Potassium Chloride Carbon Dioxide Anion Gap BUN Creatinine Estimated GFR/1.73 m2 BUN/Creatinine Ratio Glucose POC Glucose 57 L D 153 H D Calculated Osmolality Calcium Magnesium Total Bilirubin AST ALT Alkaline Phosphatase Creatine Kinase Creatine Kinase Index CK-MB (CK-2) Troponin T High Sens Irz-O-Ltgivudqdob Pept Total Protein Albumin Globulin Albumin/Globulin Ratio Plasma Lactate Urine Source Urine Color Urine Turbidity Urine pH Ur Specific Hugo Urine Protein Ur Glucose (Stick) Ur Ketones (Stick) Urine Blood Urine Nitrite Urine Bilirubin Urobilinogen Dipstick Urine Leukocytes Urine WBC (Auto) Urine RBC (Auto) U Epithel Cells (Auto) Urine Bacteria (Auto) Stool Occult Blood Blood Type Antibody Screen Crossmatch Orders Category Date Time Status Admit [facility] Routine [id number] 10/10/19 13:51 Active Activity - Strict Bedrest ORDERED Care 10/10/19 13:51 Active Cardiac Monitoring DIRECTED Care 10/10/19 09:03 Completed Cardiac Monitoring DIRECTED Care 10/10/19 09:14 Completed Elevate Head of Bed DIRECTED Care 10/10/19 13:51 Active FSBS/Accucheck Result Q4HR Care 10/10/19 13:51 Active Shen Cath Insertion ORDERED Care 10/10/19 09:52 Active IV Insertion ORDERED Care 10/10/19 09:14 Completed Intake and Output-Strict ORDERED Care 10/10/19 13:51 Active Misc. NRSG Communication Order DIRECTED Care 10/10/19 12:44 Active Neurological Check Q4H Care 10/10/19 13:51 Active Notify MD of + Sepsis Screen NOW Care 10/10/19 09:14 Completed Notify Physician ORDERED Care 10/10/19 09:14 Completed Nursing- Assist w/ IS as order [id number] Care 10/10/19 13:51 Active Nursing- MD Consult Request ROUTINE Care 10/10/19 13:51 Active Nursing- MD Consult Request ROUTINE Care 10/10/19 13:51 Active Nursing- MD Consult Request ROUTINE Care 10/10/19 13:51 Active Oxygen Therapy- ED Nursing DIRECTED Care 10/10/19 09:03 Completed Resuscitation Status Routine Care 10/10/19 12:07 Ordered Saline Loc NOW Care 10/10/19 09:03 Completed Transfuse .Give-Transfuse Care 10/10/19 09:38 Active Vital Signs Order Q15M Care 10/10/19 13:51 Active [place] DIRECTED Care 10/10/19 09:18 Active Z-Document. for Tele Applied ORDERED Care 10/10/19 13:51 Active Physician/Provider Consults Routine Cons 10/10/19 13:51 Ordered Physician/Provider Consults Routine Cons 10/10/19 13:51 Ordered Physician/Provider Consults Routine Cons 10/10/19 13:51 Ordered NPO Diet 10/10/19 13:51 Active CHEST-PORTABLE [RAD] Stat Exams 10/10/19 13:31 Completed CT THORAX/ABD/PELVIS W/O CON [CT] Stat Exams 10/10/19 10:01 Completed ABG [RESP] Routine Lab 10/10/19 09:31 Completed ABG [RESP] Routine Lab 10/10/19 14:53 Ordered ABG [RESP] Routine Lab 10/11/19 06:00 Ordered AMMONIA [CHEM] Stat Lab 10/10/19 13:51 Ordered BLOOD CULTURE [BLDCUL] Stat Lab 10/10/19 09:27 Received BMP [BASIC METABOLIC PANEL] [CHEM] Routine Lab 10/10/19 14:10 Completed CBC WITH DIFF [HEME] Routine Lab 10/11/19 06:00 Ordered CBC WITH ELECTRONIC DIFF [HEME] Stat Lab 10/10/19 09:25 Completed CK PROFILE [SP CHEM] Q3H Lab 10/10/19 14:10 Results CK PROFILE [SP CHEM] Stat Lab 10/10/19 09:25 Completed CK TOTAL [CHEM] Routine Lab 10/11/19 06:00 Ordered COMPREHENSIVE METABOLIC PANEL [CHEM] Routine Lab 10/11/19 06:00 Ordered COMPREHENSIVE METABOLIC PANEL [CHEM] Stat Lab 10/10/19 09:25 Completed D-DIMER [COAG] Stat Lab 10/10/19 09:25 Completed HGB AND HCT [HEME] Timed Lab 10/10/19 14:00 Ordered LACTATE, PLASMA [CHEM] Lab 10/10/19 09:25 Completed LACTATE, PLASMA [CHEM] Lab 10/10/19 12:10 Completed LACTATE, PLASMA [CHEM] Lab 10/10/19 14:30 Ordered MAGNESIUM [CHEM] Routine Lab 10/11/19 06:00 Ordered MAGNESIUM [CHEM] Stat Lab 10/10/19 09:25 Completed OCCULT BLOOD SCREEN STOOL PL Stat Lab 10/10/19 09:48 Completed PRBC [LRPC (RED CELLS)] [BBK] Stat Lab 10/10/19 09:25 Completed PRO B-NATRIURETIC PEPTIDE Stat Lab 10/10/19 09:25 Completed PROTIME WITH INR [COAG] Routine Lab 10/11/19 06:00 Ordered PROTIME WITH INR [COAG] Stat Lab 10/10/19 09:25 Completed PTT [COAG] Stat Lab 10/10/19 09:25 Completed SPUTUM CULTURE WITH GRAM STAIN [RM] Routine Lab 10/10/19 13:51 Uncollected TROPONIN T HIGH SENSITIVITY Q3H Lab 10/10/19 14:10 Completed TROPONIN T HIGH SENSITIVITY Q3H Lab 10/10/19 17:00 Ordered TROPONIN T HIGH SENSITIVITY Stat Lab 10/10/19 09:25 Completed TYPE & SCREEN [BBK] Stat Lab 10/10/19 09:25 Completed URINALYSIS W/POSS RFLX CULT [URINALYSIS] Stat Lab 10/10/19 10:11 Completed URINE CULTURE [RM] Routine Lab 10/10/19 10:32 Received 0.9% Sodium Chloride Inj [Ns] 1,000 ml Med 10/10/19 09:33 Discontinued IV 125 mls/hr 0.9% Sodium Chloride Inj [Ns] 1,000 ml Med 10/10/19 13:51 Active IV 75 mls/hr 0.9% Sodium Chloride Inj [Ns] 1,000 ml Med 10/10/19 10:17 Discontinued IV 999 mls/hr 0.9% Sodium Chloride Inj [Ns] 1,000 ml Med 10/10/19 10:18 Discontinued IV 999 mls/hr 0.9% Sodium Chloride Inj [Ns] 500 ml Med 10/10/19 11:18 Discontinued .ROUTE As directed 0.9% Sodium Chloride Inj [Ns] 500 ml Med 10/10/19 11:43 Active IV 20 mls/hr Albumin 25% Med 10/10/19 12:44 Discontinued 50 gm IV NOW ONE Dextrose 5%-0.45% NaCl Inj [D5 1/2 Ns] 250 ml Med 10/10/19 12:45 Active Norepinephrine [Levophed] 8 mg IV As Directed mls/hr Dextrose 5%-Water Inj [D5w] 1,000 ml Med 10/10/19 16:00 Active Sodium Bicarbonate 8.4% 150 meq IV 150 mls/hr Dextrose 50% Syringe [D50w Syringe] Med 10/10/19 14:43 Discontinued 50 ml .ROUTE .STK-MED ONE Dextrose 50% Syringe [D50w Syringe] Med 10/10/19 09:18 Discontinued 50 ml IV NOW ONE Dextrose 50% Syringe [D50w Syringe] Med 10/10/19 14:46 Discontinued 50 ml IV NOW ONE Etomidate [Amidate] Med 10/10/19 13:46 Discontinued 10 mg IV NOW ONE Furosemide [Lasix] Med 10/10/19 12:44 Discontinued 40 mg IV NOW ONE Lactated Ringers Inj [Lr] 1,000 ml Med 10/10/19 10:22 Discontinued IV 999 mls/hr Lactated Ringers Inj [Lr] 1,000 ml Med 10/10/19 10:34 Discontinued IV 999 mls/hr Lactated Ringers Inj [Lr] 400 ml Med 10/10/19 10:34 Discontinued IV 999 mls/hr Ondansetron [Zofran] Med 10/10/19 10:37 Discontinued 4 mg IV NOW ONE Ondansetron [Zofran] Med 10/10/19 13:51 Active 4 mg IV Q6H PRN PRN Pantoprazole [Protonix] Med 10/10/19 13:51 Active 40 mg IV Q12H Pharmacy Order [Vancomycin IV Per Pharmacy] Med 10/10/19 13:51 Ordered 1 each MISC DIRECTED Piperacillin/Tazobactam [Zosyn] 2.25 gm Med 10/10/19 10:18 Discontinued 0.9% Sodium Chloride Inj [Ns] 50 ml IV NOW Piperacillin/Tazobactam [Zosyn] 2.25 gm Med 10/10/19 18:30 Active 0.9% Sodium Chloride Inj [Ns] 50 ml IV Q8H Propofol [Diprivan 1%] Med 10/10/19 14:00 Active 1,000 mg in 100 ml IV As Directed mls/hr Sodium Bicarbonate 8.4% Med 10/10/19 15:05 Discontinued 50 meq IV PUSH NOW ONE Sodium Chloride 0.9% Med 10/10/19 13:51 Active 10 ml INJ DIRECTED Succinylcholine [Quelicin] Med 10/10/19 13:46 Discontinued 100 mg IV NOW ONE Vancomycin 1 gm/Ns Med 10/10/19 10:45 Discontinued 1 gm in 250 ml .ROUTE As directed Vancomycin 1 gm/Ns Med 10/10/19 10:18 Discontinued 1 gm in 250 ml IV NOW BIPAP Stat Oth 10/10/19 12:30 Active Incentive Spirometer Routine Oth 10/10/19 13:51 Active Oxygen Device Routine Oth 10/10/19 13:51 Active Pulse Oximetry Routine Oth 10/10/19 13:51 Active Telemetry [OM.EQ] Routine Oth 10/10/19 13:51 Active EKG [EKG] Stat Ther 10/10/19 09:03 Draft Transfer/Admit Order [TRANSFER] Routine Transfer 10/10/19 11:25 Ordered D/W DR PACKER AND WILL USE LR V NS IN AN EFFORT NOT TO WORSEN HIS CURRENT ACIDOSIS (Carey Joaquin) 1225 o2 sat dropping. Kiarra called to bedside. Pt placed on bipap. 1243 albumin. pt given lasix per Dr. Dang's orders. 1315 Kiarra called to bedside for intubation. (David Dickerson) Procedures - INTUBATION Time of Intubation: 13:29 (10 of etomidate and 100 of succ pushed at 1327. Bp 73/44. ) Airway Evaluation: Copious Secretions Intubation Method: orotracheal Equipment: ETT, Glidescope Tube Size (cm): 7.5 Pretreated with 100% Oxygen?: Yes (O2 sat 90% with bag breathing.) Breath Sounds after Intubation: equal ETT Primary Tube Confirmation: Capnometry CO2 Change, Direct Visualization, Chest Rise and Fall Intubation Complications: no complications Vent Settings: See Respiratory Therapy Notes Procedure Comment: 24.5 cm at the gum line. <David Dickerson - Last Filed: 10/10/19 15:42> Departure - Departure Date of Disposition Decision: 10/10/19 Time of Disposition Decision: 12:21 Certified Medical Emergency: Emergent - Critical Care Note This patient required my direct & personal management of CC.: No <Carey Joaquin - Last Filed: 10/10/19 15:06> <David Dickerson - Last Filed: 10/10/19 15:42> - Departure DIAGNOSIS: Sepsis, ARF (acute renal failure), Lactic acidosis, GI bleed, Anemia, Elevated liver enzymes, Hypoglycemia, Ascites, Cirrhosis Disposition: ADMITTED INPATIENT 09 Condition: Serious Referrals and Follow-Ups: Tyrell Dang MD [Primary Care Provider] - Discharge Education: Steps to Quit Smoking, [id number] Attestation - Physician/ MARIAM Attestation The physician spent face to face time with patient:: Yes (DR DICKERSON) Advanced Practice Provider documentation review:: Supervising physician onsite and consulted in the evaluation and care of this patient. The physician did have a face to face encounter with the patient. <Carey Joaquin - Last Filed: 10/10/19 15:06> - Physician/ MARIAM Attestation Patient care was provided by Advanced Practice Provider:: Yes Advanced Practice Provider:: Carey Joaquin Advanced Practice Provider documentation review:: The Mid-level provider documentation, treatment plan and medical decision making was reviewed by the physician who agrees with all treatment and medical decision making by the P. The physician spent face to face time with patient:: Yes Advanced Practice Provider documentation review:: Supervising physician onsite and consulted in the evaluation and care of this patient. The physician did have a face to face encounter with the patient. <David Dickerson - Last Filed: 10/10/19 15:42> This chart was documented by the indicated scribe, (Kacey Bernabe Scribe) and accurately reflects the services I performed and decisions made by me, David Dickerson MD, as attested by the provider's signature.
[2019-10-10] MEDS ORDERED: VANCOMYCIN 1 GM/NS 1 GM/250 ML IVPB ONE (10:45)
[2019-10-10] MEDS ORDERED: NS 500 ML ONE (11:18)
[2019-10-10] MEDS ORDERED: NS 500 ML IV ONE ×2 (11:43→17:15)
--- NOTE | 2019-10-10 12:12 | Diag Imaging Result Doc PS360 ---
EXAM: CT THORAX/ABD/PELVIS W/O CON INDICATION: sepsis, blood loss, distention TECHNIQUE: This exam was performed using automated exposure control, adjustment of mA or kV according to patient size, and/or use of iterative reconstruction technique. COMPARISON: CTA chest dated 09/23/[address] of the chest, abdomen, and pelvis dated 03/22/2017 FINDINGS: CHEST: There is excessive respiratory motion. This along with lack of IV contrast limits the study. There is interstitial thickening and patchy infiltrate seen throughout both lungs most likely representing edema. A component of infection is possible. There is no significant pleural fluid collection and no pneumothorax. The heart is borderline to mildly prominent but stable. No obvious lymphadenopathy is appreciated given the limitations of an unenhanced study. There is a large amount of fluid in the esophagus, which is distended, indicating reflux. ABDOMEN/PELVIS: The liver exhibits a diffusely nodular contour suggesting cirrhosis. There is large volume ascites tracking around the liver and spleen and layering in the pelvis. There appear to be a few layering calcified stones in the gallbladder lumen. There is stable calcifications at the periphery of the spleen. There is no splenomegaly. The pancreas and adrenal glands are grossly unremarkable as imaged. There are a couple of nonobstructing intrarenal stones on the right. There is no hydronephrosis. There is a Shen catheter in the urinary bladder and the bladder is nondistended. There is no evidence of bowel obstruction. The ascending colon appears somewhat thickened. This is probably due to underdistention as well as the surrounding ascites. A component of colitis cannot completely be excluded. No small bowel wall thickening is appreciated. There is body wall anasarca. There is no evidence of acute osseous abnormality. IMPRESSION: 1.Limited study due to motion and lack of contrast. 2.Interstitial thickening and patchy infiltrate throughout both lungs likely representing mild interstitial edema. A component of infection is possible in the right clinical scenario. 3.Distended esophagus containing fluid suggesting reflux. 4.Large volume ascites. 5.Cirrhotic liver. 6.Thickening of the ascending colon, which could be, at least in part, due to underdistention and the surrounding ascites. Colitis is not excluded. 7.Body wall anasarca. 8.Other incidental/nonacute findings detailed above. Electronically signed by Neftali Claire 10/10/2019 12:09 PM
[2019-10-10] MEDS ORDERED: ALBUMIN 25% IV ONE (12:44)
[2019-10-10] MEDS ORDERED: LASIX IV ONE (12:44)
[2019-10-10] MEDS ORDERED: LEVOPHED 8 MG in D5 1/2 NS 250 ML IV SCH (12:45)
--- NOTE | 2019-10-10 12:50 | HISTORY AND PHYSICAL ---
ADDENDUM: Patient seen and examined by myself. Full note dictated and discussed with nurse practitioner. The patient presented to the hospital with increased cough and congestion. He is having some abdominal pain. His abdomen is distended. His hemoglobin and hematocrit actually have dropped from 3 days ago, currently down to 5 and 17. Creatinine has also increased from 3 days ago at 1.6, currently up to 3.4. His lactate is elevated to 10. PH 7.1, pCO2 of 24. He has metabolic acidosis. His abdomen is distended. He does appear to be septic. We are going to admit him to the hospital. IV vancomycin, Zosyn, fluid resuscitation. Will ask Surgery for input, and will follow. Please see full note. cc: Tyrell Dang MD
[2019-10-10] MEDS ORDERED: AMIDATE IV ONE (13:46)
[2019-10-10] MEDS ORDERED: QUELICIN IV ONE (13:46)
[2019-10-10] MEDS ORDERED: VANCOMYCIN IV PER PHARMACY MISC SCH (13:51)
[2019-10-10] MEDS ORDERED: NS 1,000 ML IV SCH (13:51)
[2019-10-10] MEDS ORDERED: SODIUM CHLORIDE 0.9% INJ SCH (13:51)
[2019-10-10] MEDS ORDERED: PROTONIX IV SCH (13:51)
[2019-10-10] MEDS ORDERED: ZOFRAN IV PRN ×2 (13:51→15:50)
[2019-10-10] MEDS ORDERED: DIPRIVAN 1% 1,000 MG/100 ML BOTTLE IV SCH ×2 (14:00→16:00)
--- NOTE | 2019-10-10 14:39 | Diag Imaging Result Doc PS360 ---
EXAM: CHEST-PORTABLE INDICATION: intubation TECHNIQUE: One view COMPARISON: 09/23/2019 FINDINGS: The newly placed ET tube projects over the trachea and above the orz at about the T5 level. Inspiration is suboptimal. Central vasculature is prominent suggesting pulmonary venous congestion. There is evidence of mild interstitial edema. There is mild subsegmental atelectasis at the left lung base. No significant pleural fluid collection or pneumothorax is appreciated. Cardiac silhouette is unremarkable. IMPRESSION: 1.Newly placed ET tube as detailed above. 2.Suggestion of pulmonary venous congestion and mild interstitial edema. Electronically signed by Neftali Claire 10/10/2019 2:37 PM
[2019-10-10] MEDS ORDERED: D50W SYRINGE ONE (14:43)
[2019-10-10 14:47] LABS: CALCIUM 7.9 mg/dL (8.8-10.2); CREATININE 3.3 mg/dL (0.7-1.2); POTASSIUM 5.9 mmol/L (3.5-5.1)
[2019-10-10 14:57] LABS: BE -23.2 mmoll (-3.0-3.0); BLOOD TYPE ARTERIAL; HCO3-(ACT) 6.8 mmoll (20.0-26.0); METHB 1.1 % (0.0-1.5); O2(CT) 6.6 mL/dL (15.0-23.0); O2HB 91.8 % (95.0-99.0); PO2(98.6) 85 mmHg (60-100); SAMPLE BLOOD; SAO2 95.1 % (95.0-100.0); SRATE 16 BPM; TVOL 350 mL
[2019-10-10] MEDS ORDERED: SODIUM BICARBONATE 8.4% IV PUSH ONE ×2 (15:05→22:14)
[2019-10-10 15:09] LABS: CK INDEX 3.7 (0.0-2.5); CK-MB 23.61 ng/mL (0.0-5.0)
[2019-10-10 15:13] LABS: MODALITY VENTILATOR
[2019-10-10 15:14] LABS: ALLEN TEST YES
[2019-10-10 15:21] LABS: pH(98.6) 6.81 (7.35-7.45)
[2019-10-10 15:22] LABS: PCO2(98.6) 54 mmHg (35-45)
--- NOTE | 2019-10-10 15:30 | HISTORY AND PHYSICAL ---
PRIMARY CARE PROVIDER: Tyrell Dang MD DATE AND TIME: 10/10/2019. CHIEF COMPLAINT: Shortness of breath. HISTORY OF PRESENT ILLNESS: Mr. Moralez is a 59-year-old -Chinese male with shortness of breath. The patient states that his shortness of breath started last night. He did report that he was in the ER a few weeks ago with the same complaints, though he stated that his shortness of breath had gotten better and is now worse again. He denies any cough. He denies any recent diagnosis of pneumonia or infection or recently taking any antibiotics for any infection. He also denies any fever, body aches, or chills. The patient did report that he did have difficulty sleeping last night due to his shortness of breath. He also reports that he has been having diarrhea for the past few days and has had maroonish bloody-colored stools as well. His abdomen is quite distended, though he denies any abdominal pain. He was nontender upon palpation. He denies any nausea or vomiting. The patient was making occasional grunting sounds as though he was in pain during my assessment, though he denied any pain anywhere at this time. He stated that he was just grunting due to his shortness of breath. He has reported some dizziness and lightheadedness. He denies any headache. He denies any chest pain. He denies any dysuria or decrease in his urine output. The patient does have chronic swelling of his bilateral lower extremities. He did state that his left leg is usually more swollen than his right. He denies his swelling being worse than normal. The patient denies any past or current history of alcohol use. Upon evaluation in the ER, the patient's initial vital signs were temperature 94 degrees, heart rate 105, respirations 22, blood pressure is 131/64, with oxygen saturation of 100% on room air. Since arriving to the ER, the patient's condition has declined. His temperature has declined as well. He has become hypothermic and a warming blanket has been placed at this time. He did receive some IV fluids. These were administered warmed as well. His blood pressures were borderline low. Even after fluid administration, he still remained hypotensive. Infusion of Levophed has been started. He was found to be hypoglycemic. They did provide D50 IV. He was also found to be anemic with a hemoglobin of 5.6, hematocrit of 17.7. Hemoccult stool was positive. He is being transfused with packed red blood cells at this time. We will do 1 unit initially, though the patient will likely require more. We are going to do a hemoglobin and hematocrit after this transfusion is complete as well as we will repeat his CK and troponin. We are adding on an ammonia level as well. He did have some mild leukocytosis. He is in acute renal failure. He does have a history of liver disease which includes cirrhosis of the liver, ascites and hepatitis C. His liver function tests are elevated, and he does have metabolic acidosis as well. He was fluid resuscitated initially for possible sepsis with 2400 mL of lactated Ringer's. CT of thorax, abdomen and pelvis was performed. There was possible pneumonia noted, cirrhotic liver with large volume ascites. There was also possible colitis that could not be excluded. Since his arrival in the ER at [place], the patient did begin to have a worsening dyspnea and his oxygen saturations began to drop secondary to this. The patient was intubated. He currently is receiving respirations per mechanical ventilator. Levophed for pressure support is in place. We have placed propofol for sedation. He is awaiting transfer to [facility] for ICU placement. REVIEW OF SYSTEMS: A 14 point review of systems was conducted with the patient. All were negative except for pertinent positives mentioned above HPI. PAST MEDICAL HISTORY: 1. History of liver cirrhosis. 2. Hepatitis C. 3. Gout. 4. Hypertension. 5. Psoriasis. 6. Chronic kidney disease. 7. Nicotine dependence. 8. Chronic bilateral lower extremity edema. PAST SURGICAL HISTORY: 1. The patient has had a previous surgery for incision and drainage of a sternoclavicular joint abscess secondary to MRSA. This was in 2017. 2. Foot surgery. SOCIAL HISTORY: The patient does still smoke 1 pack per day. He denies any alcohol or illicit drug use. FAMILY HISTORY: The patient denies any known family medical history in his mother, father, or siblings. ALLERGIES: Patient has no known allergies. HOME MEDICATIONS: We are awaiting the patient's home medication list to be updated and verified and once done so we can continue appropriate medicines. DIAGNOSTIC DATA/LABORATORY RESULTS: White blood cell count is 12,620, hemoglobin 5.6, hematocrit 17.7, platelet count is 209,000, PTT 22.8, INR 1.89, PTT is 40.6, D-dimer 12.01. Sodium 140, potassium 5, chloride 108, serum bicarb is 10, BUN 48, creatinine 0.4, the GFR 19, glucose 65, though after administration of D50, it was 154. Calcium 8.2, magnesium 1.9, total bilirubin 2.5, AST 100, ALT 49, alkaline phosphatase 177, CK 547, CK index 3.4, CK-MB 18.41, troponin T high sensitivity 47, proBNP 471. Plasma lactate was 9.9. Arterial blood gases were obtained on room air, pH 7.14, pCO2 24, PO2 107, HC03 is 10.1 with a base excess of -19.1. O2 saturation was 100.7. Urinalysis was obtained via catheter and was positive for trace protein, small amount of blood and small leukocytes. It was negative for glucose, ketones, nitrites, white blood cells, or bacteria. Hemoccult stool was positive. EKG showed sinus tachycardia at a rate of 105 with a QTc of 491. CT thorax, abdomen and pelvis without contrast showed interstitial thickening and patchy infiltrate throughout both lungs, likely representing mild interstitial edema, though component of infection is possible. The esophagus was noted to be distended, containing fluid suggesting reflux. There was large volume ascites and cirrhotic liver. There was thickening of the ascending colon, which could be at least in part due to under distention and the surrounding ascites, though colitis could not be excluded. There was body wall anasarca. This is per Radiology. Please see full CT report for all details findings. PHYSICAL EXAMINATION: VITAL SIGNS: Temperature 91 degrees, heart rate 97, respirations 26, blood pressure is 104/60, with a MAP of 70, oxygen saturation was 96% per nasal cannula at 2 L. GENERAL: Mr. Moralez is a 59-year-old elderly-appearing, -Chinese male. He was resting on the ER stretcher. The patient did seem slightly dyspneic upon my examination, though he was not in respiratory distress. He is maintaining adequate oxygen saturations. HEENT: Head is atraumatic, normocephalic. Pupils are equal, round, reactive to light, 3 mm bilaterally and brisk. Conjunctivae were pale. Oral mucosa was moist. Oropharynx was clear. NECK: Supple. Trachea midline. CARDIOVASCULAR: Patient has S1-S2 present. No murmurs, gallops, or rubs appreciated with a slightly tachycardic rate that is regular. PULMONARY: Patient has symmetrical chest expansion bilaterally. Lung sounds in upper [place] were clear to auscultation though were diminished in bilateral bases. ABDOMEN: Slightly firm. Distended, though the patient was nontender upon palpation. Bowel sounds were present in all 4 quadrants, were slightly hypoactive. EXTREMITIES: The patient does have 2 to 3+ pitting edema noted in bilateral lower extremities from his knees down. His swelling in his left leg was worse than his swelling on the right. The patient states that his left leg is usually more swollen than his right. Radial pulses were 2+ bilaterally. Pedal pulses were 1+. INTEGUMENTARY: The patient's skin is slightly pale, though is dry and intact. NEUROLOGICAL: Patient is alert and oriented to person, place, and time. He is able to move all extremities. He does have generalized weakness noted. ASSESSMENT AND PLAN: 1. Symptomatic anemia. 2. Suspected lower gastrointestinal bleed. 3. Possible sepsis though at this time the exact source is not known, though we are going to rule out possible colitis, possible spontaneous bacterial peritonitis, and possible pneumonia. 4. Acute on chronic kidney disease. 5. Metabolic acidosis. 6. Hypothermia. 7. Hypoglycemia. 8. Large volume ascites with history of liver cirrhosis and hepatitis C. The patient was volume resuscitated in the ER per sepsis protocol. We will continue with the gentle IV infusion of normal saline at 75 L/hour. Blood culture, urine culture, and sputum culture will be collected. We will place him with antibiotic coverage of vancomycin and Zosyn. This will be renally dosed. He is receiving a blood transfusion at this time. We will do a repeat hemoglobin and hematocrit after this transfusion to see if he requires further transfusions. He has been placed on Protonix 40 mg IV q.12 hours. He will be NPO. The patient is hypothermic and a warming blanket has been placed. He has been receiving warmed fluids as well. Since my assessment, the patient's respiratory status has worsened. He did become more dyspneic and became hypoxic. He has been intubated at this time and is on mechanical ventilator. We will continue to monitor his cardiovascular, neurological, respiratory status closely. We have placed consults with Dr. Wheeler of Gastroenterology, Dr. Joaquin with Surgery, Dr. Ramirez with Nephrology and Dr. Travis MD with Pulmonology. The patient prior to intubation was alert, awake, alert and oriented to person, place, time, and situation. I did discuss resuscitation status with him. He did want to be a FULL CODE. The patient will be transferred to [facility] for inpatient admission to the ICU. Further orders and recommendations pending hospital course, diagnostic studies, and physician evaluation. Dictated by JEAN MARIE Amin for Tyrell Dang MD cc: Tyrell Dang MD MTDD
[2019-10-10 15:45] LABS: HEMATOCRIT 16.4 % (42.0-52.0); HEMOGLOBIN 4.9 g/dL (14.0-18.0)
[2019-10-10] MEDS ORDERED: SODIUM BICARBONATE 8.4% 150 MEQ in D5W 1,000 ML IV SCH ×2 (16:00→23:00)
[2019-10-10] MEDS: PITRESSIN 40 UNIT in NS 100 ML IV SCH (18:13)
[2019-10-10] MEDS: ALBUMIN 25% IV SCH ×2 (18:20→23:09)
--- NOTE | 2019-10-10 18:26 | OPERATIVE NOTE ---
PROCEDURE DATE: 10/10/2019 PROCEDURE PERFORMED: Left femoral vein central venous line placement under ultrasound guidance. SURGEON: Stas Joaquin MD PREOPERATIVE DIAGNOSES: 1. Blood loss anemia. 2. Sepsis. 3. Shock. 4. Poor venous access. DESCRIPTION OF PROCEDURE: The patient is on the ventilator. The left groin was prepped and draped in a sterile fashion. We covered the ultrasound probe in a sterile fashion. We imaged the vein. It was compressible. We made a stab incision and accessed the left femoral vein under ultrasound guidance. We then passed the guidewire without difficulty. We dilated the tract and passed the triple-lumen catheter to the extent that it would go. We aspirated blood from each lumen and then flushed each lumen with saline. We locked each lumen off. We then secured the flange to the skin with the silk contained within the tray. A bowel step patch was placed at the exit site and a sterile OpSite dressing was applied. He tolerated it well. cc: Stas Joaquin MD
[2019-10-10] MEDS ORDERED: ZOSYN 2.25 GM in NS 50 ML IV SCH (18:30)
[2019-10-10 18:38] LABS: BE -22.9 mmoll (-3.0-3.0); BLOOD TYPE ARTERIAL; HCO3-(ACT) 7.1 mmoll (20.0-26.0); METHB 0.9 % (0.0-1.5); O2(CT) 8.7 mL/dL (15.0-23.0); O2HB 96.9 % (95.0-99.0); PCO2(98.6) 57 mmHg (35-45); PO2(98.6) 140 mmHg (60-100); SAMPLE BLOOD; SAO2 99.7 % (95.0-100.0); SRATE 12 BPM; THB 6.1 g/dL (11.5-17.4); TVOL 500 mL
[2019-10-10 18:40] LABS: MODALITY VENTILATOR; pH(98.6) 6.82 (7.35-7.45)
[2019-10-10 18:41] LABS: ALLEN TEST YES
[2019-10-10] MEDS ORDERED: VITAMIN K 10 MG in NS 50 ML IV ONE (18:54)
--- NOTE | 2019-10-10 19:03 | Diag Imaging Result Doc PS360 ---
EXAM: CHEST/ABD TUBE PLACEMENT INDICATION: OG tube placement TECHNIQUE: One view COMPARISON: 10/10/2019 FINDINGS: The newly placed feeding tube projects well below the diaphragm and is assumed to be in the lumen of the stomach in expected position. The ET tube is in stable position. The chest is grossly stable, otherwise. IMPRESSION: Interval placement of feeding tube in the expected position as described. Electronically signed by Neftali Claire 10/10/2019 7:01 PM
--- NOTE | 2019-10-10 19:06 | PROGRESS NOTE ---
DATE: 10/10/2019 INTERVAL HISTORY: Mr. Moralez was transferred from [facility] to [facility] due to multiple critical illnesses. As soon as he arrived at [facility], I evaluated him at bedside. In fact I was already in the ICU. It appears Mr. Moralez is in septic shock and hypovolemic shock. He has norepinephrine, bicarbonate drip, and propofol drip going on, and he is intubated and mechanically ventilated. OBJECTIVE: Vital Signs: Temperature of 98.5 degrees, pulse is 79, respiratory rate 18, blood pressure 88/45. He is saturating 100% on mechanical ventilation. General: He is mechanically intubated, not able to engage in communication. HEENT: Pupils are bilaterally equal, briskly reacting to light. Oral cavity has endotracheal tube. Lungs: Air entry bilaterally equal. He had decreased lung sounds bilaterally. I could not appreciate any specific crackles or wheezes. Cardiovascular: S1, S2 normal. Tachycardic. No murmur, rub, or gallop. Appears normal sinus rhythm on monitor. Abdomen: Distended, soft, tympanic to percussion in the center of the abdomen and dullness on bilateral flanks. Extremities: He has chronic-appearing lower extremity edema and lymphedema. He has a Shen catheter. He slightly flickers to painful stimuli all extremities. LABS: Suggestive of WBC of 12,000, hemoglobin of 4.9, platelet 209,000. INR of 1.8. He does have a pH of 6.8, pCO2 of 54, lactic acidosis. His bicarbonate is 8. His BUN is 45, creatinine 3.3. His blood glucose is 153. Blood culture, urine culture, sputum culture are pending. Chest x-ray had pulmonary venous congestion, mild interstitial edema. Electrocardiogram had a prolongation of Q-T interval. ASSESSMENT AND PLAN: 1. Septic shock. Potential sources being acute colitis versus spontaneous bacterial peritonitis versus other. 2. Hypovolemic shock, likely due to acute upper gastrointestinal bleed. His mean corpuscular volume has been normal suggestive of normocytic anemia. I do not have folic acid level on him, which I will get. On rectal examination he had large external non-bleeding hemorrhoids and brown stool without melena. I will await NG tube placement under suction. 3. Hypothermia and respiratory failure requiring intubation and mechanical ventilation, likely due to blood loss. 4. Acute kidney injury due to septic shock. 5. Liver cirrhosis with history of chronic hepatitis C. 6. Lactic acidosis, mixed respiratory and metabolic acidosis. PLAN: 1. The patient has already been resuscitated with intravenous fluids. I will give him intravenous albumin. Continue intravenous norepinephrine. Add intravenous vasopressin with goal MAP more than 65 mmHg. 2. Continue intravenous vancomycin and intravenous Zosyn. Follow up final blood culture data. 3. Give another 2 units of blood transfusion. Follow up with frequent CBC. 4. Get stat cortisol and TSH, though he does not have known history of hypothyroidism. 5. Mr. Moralez's health condition is extremely critical. More than 75 minutes of time has been spent in taking care of this critical ill patient. I talked with multiple family members including mother, sister and 2 brothers about his critical condition. I frankly told them that the chances of his survival are grim. I allowed them to ask questions and answered all of them. cc: Jean Marie Goodwin MD MTDD
[2019-10-10] MEDS: LEVOPHED 8 MG in D5 1/2 NS 250 ML IV SCH (19:28)
[2019-10-10] MEDS ORDERED: SODIUM CHLORIDE 0.9% INJ ONE (19:34)
[2019-10-10] MEDS ORDERED: PROTONIX IV ONE (19:34)
[2019-10-10] MEDS: ZOSYN 2.25 GM in NS 50 ML IV SCH (19:36)
--- NOTE | 2019-10-10 19:36 | NEPHROLOGY CONSULTATION ---
DATE: 10/10/2019 REASON FOR ADMISSION: GI bleed, respiratory failure, sepsis, Flsxq-jk-pnyxcew kidney disease, history of cirrhosis, hepatitis C with large-volume ascites. REASON FOR CONSULTATION: Mkonc-eh-wfnzxjc kidney disease. Assist with management. CONSULTING PHYSICIAN: Dr. Plunkett. HISTORY OF PRESENT ILLNESS: This is a 59-year-old gentleman with a past medical history of cirrhosis, hepatitis C, hypertension, and chronic kidney disease who presented to the emergency room with some shortness of breath. He had no fevers or chills. Did report several days of bloody stools. Noted to have a distended abdomen. In the emergency room during workup, his condition declined progressively to the point that he required intubation. He has been transferred over to [facility] for additional workup and treatment. The patient was noted initially to have severe anemia with a hemoglobin of 5.6. He became significantly hypothermic and became hypotensive. Patient has been placed on pressor support. He currently has packed red blood cells infusing. The patient was markedly acidotic with a CO2 of 8 and a bicarb of 6.8 on ABGs. He currently is on ventilator settings of FiO2 100%. He has a rate 18. The patient currently is sedated. Information obtained from the chart and medical personnel. PAST MEDICAL HISTORY: Cirrhosis, hepatitis C, gout, hypertension, psoriasis, chronic kidney disease. He has a baseline creatinine around 1.6. Nicotine dependence. Bilateral chronic lower extremity edema with left greater than right. PAST SURGICAL HISTORY: He has had I and D multiple times for sternoclavicular joint abscess. He has had foot surgery. ALLERGIES: None. HOME MEDICATIONS: Currently being verified. FAMILY HISTORY: None. SOCIAL HISTORY: The chart indicates he still smokes a pack per day. Denies ETOH or illicit drug use. REVIEW OF SYSTEMS: Unobtainable. PHYSICAL EXAMINATION: Vital Signs: Temperature 98.5 degrees, pulse 79, respiratory rate 18, blood pressure 88/45, intake 3 L, output 100 mL via Shen catheter. General: This is a critically ill-appearing, middle-aged gentleman who appears much older than stated age. He is currently intubated and mechanically ventilated. HEENT: Normocephalic, atraumatic. His conjunctivae are pale. He has anterior sclerae. Neck: Supple. Trachea midline. Cardiovascular: Pressor support. Pulmonary: Equal excursion. Mechanically ventilated. No wheezes or rales. Decreased breath sounds to the bases. Abdomen: Firm, distended. Hypoactive bowel sounds. : Shen catheter. Scant amount of dark urine. Extremities: Three to 4+ lower extremity edema with chronic lymphedema noted, left greater than right. He has significant vascular changes noted to bilateral lower extremities. Integumentary: Skin is warm and dry. Neurologic: He is currently sedated. LAB DATA: WBC of 12.6, hemoglobin 4.9, platelets of 209,000. PT PTT 22.8 INR 1.8 and history PT 22.8, INR 1.8, and PTT of 40.6. He had a D-dimer of 12.01. His lactate was 12.1. His ammonia of 213. CK 637, CK-MB 223.6. Sodium 138, potassium 5.9, CO2 of 8, chloride 108, BUN 45, creatinine 3.3, and calcium 7.9. ABGs with pH of 6.81, pCO2 of 54, PO2 of 85, bicarb of 6.8, base excess - 23.2. Lactate 12.1. On the ventilator, assist control of 18, 100% of FiO2, PEEP of 5, and tidal volume 350. Chest x-ray with pulmonary venous congestion. Mild interstitial edema. CT of the abdomen and pelvis. Large volume ascites, cirrhotic liver, thickening of ascending colon. No hydronephrosis noted on CT. ASSESSMENT AND PLAN: 1. Nibwt-ud-skdrojv kidney disease in the setting of shock, a gastrointestinal bleed plus sepsis of unclear etiology, along with cirrhosis. His albumin was 1.9. He is receiving 50 g q.6 hours. Overnight he has IV fluids infusing, 3 amps of bicarb in D5. He is on pressor support, norepinephrine and vasopressin. Patient currently receiving packed red blood cells. 2. Patient also with lactic acidosis. Continue his current treatment plan overnight. Patient critically ill. Unclear if he will survive the evening. We will re-evaluate in the morning. 3. From a metabolic standpoint otherwise does not have any absolute indications for intervention such as dialysis. At this time, the patient likely would not tolerate such due to critical nature. 4. Fluid volume. He has severe ascites. Continues with IV fluids and pressor support. At this time with blood pressure in the 80s. Albumin previously ordered. 5. Gastrointestinal bleed followed by Primary and Surgery. Gastroenterology has already been consulted. Continue with blood transfusion. 6. Respiratory failure. Pulmonology following patient on the ventilator. Dictated by JEAN MARIE Alcantara for Magdiel Ramirez MD cc: Magdiel Ramirez MD [facility]
[2019-10-10 20:10] LABS: URINE SOURCE CATH
[2019-10-10 20:12] LABS: BILIRUBIN URINE NEGATIVE (NEGATIVE); BLOOD URINE TRACE (NEGATIVE); COLOR YELLOW; GLUCOSE URINE NEGATIVE (NEGATIVE); KETONE URINE NEGATIVE (NEGATIVE); LEUKOCYTES URINE SMALL (NEGATIVE); NITRITE URINE NEGATIVE (NEGATIVE); PH URINE 5.5; PROTEIN URINE TRACE mg/dL (NEGATIVE); SP GRAVITY URINE 1.018; TURBIDITY URINE HAZY (CLEAR); UROBILINOGEN URINE NORMAL (NORMAL)
[2019-10-10 20:17] LABS: UR EPITHELIAL CELLS <10 /HPF (<10); URINE BACTERIA NEGATIVE /HPF; URINE RBC <10 /HPF (<10); URINE WBC <10 /HPF (<10)
[2019-10-10 20:40] LABS: BASO# 0.02 X1000 (0.0-0.2); BASO% 0.2 % (0.0-0.8); HEMATOCRIT 21.1 % (42.0-52.0); HEMOGLOBIN 6.3 g/dL (14.0-18.0); IMM GRAN# 0.04 X1000 (0.0-0.04); IMM GRAN% 0.4 % (0.0-0.5); LYMPH# 1.73 X1000 (1.2-3.4); LYMPH% 15.9 % (20.5-51.1); MCH 28.8 PG (27-31); MCHC 29.9 g/dL (33-37); MCV 96.3 FL (81-99); MONO# 0.19 X1000 (0.11-0.59); MONO% 1.7 % (1.7-9.3); MPV 10.7 FL (7.4-10.4); NEUT# 8.91 X1000 (1.4-6.5); NEUT% 81.8 % (42.2-75.2); PLT 144 X1000 (130-400); RBC 2.19 XMIL (4.7-6.1); RDW 19.9 % (11.5-14.5); WBC 10.89 X1000 (4.8-10.8)
[2019-10-10 21:03] LABS: ALB/GLOB RATIO 0.9; ALBUMIN 3.1 g/dL (3.5-5.0); CALCIUM 7.7 mg/dL (8.8-10.2); CREATININE 3.8 mg/dL (0.7-1.2); MAGNESIUM 1.8 mg/dL (1.5-2.7); PHOSPHORUS 10.2 mg/dL (2.7-4.5); POTASSIUM 5.8 mmol/L (3.5-5.1); TOTAL BILIRUBIN 2.04 mg/dL (0.20-1.00); TOTAL PROTEIN 6.4 g/dL (6.3-8.3)
[2019-10-10 22:36] LABS: ALLEN TEST YES; BE -20.4 mmoll (-3.0-3.0); BLOOD TYPE ARTERIAL; METHB 0.7 % (0.0-1.5); PCO2(98.6) 47 mmHg (35-45); PO2(98.6) 83 mmHg (60-100); SAMPLE BLOOD; SAO2 97.7 % (95.0-100.0); SRATE 18 BPM; THB 7.4 g/dL (11.5-17.4); TVOL 500 mL
[2019-10-10 22:37] LABS: MODALITY VENTILATOR
[2019-10-10 22:39] LABS: pH(98.6) 6.95 (7.35-7.45)
[2019-10-10] MEDS ORDERED: ATIVAN IV PRN (22:46)
[2019-10-10] MEDS: SOLU-CORTEF IV SCH (23:08)
[2019-10-10] MEDS: ATIVAN IV PRN (23:43)
[2019-10-10] MEDS: SODIUM BICARBONATE 8.4% 150 MEQ in D5W 1,000 ML IV SCH (23:45)
[2019-10-11] MEDS ORDERED: ATROVENT NEB INH ONE (00:21)
[2019-10-11] MEDS ORDERED: DUONEB (A & A) INH PRN (00:24)
[2019-10-11] MEDS: ATROVENT NEB INH SCH ×7 (00:27→23:35)
[2019-10-11] MEDS: XOPENEX NEB INH SCH ×7 (00:27→23:35)
[2019-10-11] MEDS: MORPHINE IV PRN ×2 (00:42→04:53)
[2019-10-11 01:18] LABS: ALLEN TEST YES; BE -16.1 mmoll (-3.0-3.0); BLOOD TYPE ARTERIAL; HCO3-(ACT) 12.3 mmoll (20.0-26.0); METHB 0.6 % (0.0-1.5); MODALITY VENTILATOR; O2(CT) 9.8 mL/dL (15.0-23.0); O2HB 92.8 % (95.0-99.0); PCO2(98.6) 43 mmHg (35-45); PO2(98.6) 66 mmHg (60-100); SAMPLE BLOOD; SAO2 94.9 % (95.0-100.0); SRATE 18 BPM; THB 7.4 g/dL (11.5-17.4); TVOL 500 mL
[2019-10-11 01:19] LABS: pH(98.6) 7.08 (7.35-7.45)
[2019-10-11] MEDS: ATIVAN IV PRN ×2 (01:25→04:53)
[2019-10-11 01:31] LABS: BASO# 0.01 X1000 (0.0-0.2); BASO% 0.1 % (0.0-0.8); HEMATOCRIT 22.9 % (42.0-52.0); HEMOGLOBIN 6.9 g/dL (14.0-18.0); IMM GRAN# 0.02 X1000 (0.0-0.04); IMM GRAN% 0.2 % (0.0-0.5); LYMPH# 1.28 X1000 (1.2-3.4); LYMPH% 15.9 % (20.5-51.1); MCH 28.5 PG (27-31); MCHC 30.1 g/dL (33-37); MCV 94.6 FL (81-99); MONO# 0.23 X1000 (0.11-0.59); MONO% 2.9 % (1.7-9.3); MPV 11.1 FL (7.4-10.4); NEUT# 6.53 X1000 (1.4-6.5); NEUT% 80.9 % (42.2-75.2); PLT 119 X1000 (130-400); RBC 2.42 XMIL (4.7-6.1); WBC 8.07 X1000 (4.8-10.8)
[2019-10-11] MEDS: ZOSYN 2.25 GM in NS 50 ML IV SCH ×3 (01:32→17:44)
[2019-10-11] MEDS: PROTONIX IV SCH ×2 (01:32→14:04)
[2019-10-11] MEDS: LEVOPHED 8 MG in D5 1/2 NS 250 ML IV SCH ×6 (01:33→20:45)
[2019-10-11] MEDS: NEO-SYNEPHRINE 50 MG in NS 250 ML IV SCH ×7 (01:34→21:46)
[2019-10-11 01:39] LABS: ALB/GLOB RATIO 1.1; ALBUMIN 3.6 g/dL (3.5-5.0); CALCIUM 7.9 mg/dL (8.8-10.2); POTASSIUM 5.8 mmol/L (3.5-5.1); TOTAL BILIRUBIN 2.13 mg/dL (0.20-1.00)
[2019-10-11 03:27] LABS: ANISOCYTOSIS 1+; LYMPHS 24 % (21-51); MONO 5 % (1-9); SEGS 71 % (42-75)
[2019-10-11] MEDS ORDERED: XOPENEX NEB INH SCH (03:30)
[2019-10-11] MEDS: PITRESSIN 40 UNIT in NS 100 ML IV SCH ×2 (04:11→08:26)
[2019-10-11] MEDS: SOLU-CORTEF IV SCH ×4 (04:53→22:27)
[2019-10-11 05:24] LABS: ALLEN TEST YES; BE -13.4 mmoll (-3.0-3.0); BLOOD TYPE ARTERIAL; HCO3-(ACT) 14.3 mmoll (20.0-26.0); METHB 0.9 % (0.0-1.5); O2(CT) 8.8 mL/dL (15.0-23.0); PCO2(98.6) 48 mmHg (35-45); SAMPLE BLOOD; SAO2 84.9 % (95.0-100.0); SRATE 18 BPM; THB 7.5 g/dL (11.5-17.4); TVOL 500 mL
[2019-10-11 05:26] LABS: PO2(98.6) 47 mmHg (60-100); pH(98.6) 7.11 (7.35-7.45)
[2019-10-11 05:27] LABS: MODALITY VENTILATOR; O2HB 82.8 % (95.0-99.0)
[2019-10-11 05:35] LABS: BASO# 0.01 X1000 (0.0-0.2); BASO% 0.1 % (0.0-0.8); EOS# 0.01 X1000 (0.0-0.7); EOS% 0.1 % (0.0-10.0); HEMATOCRIT 23.3 % (42.0-52.0); HEMOGLOBIN 7.1 g/dL (14.0-18.0); IMM GRAN# 0.02 X1000 (0.0-0.04); IMM GRAN% 0.2 % (0.0-0.5); INR 2.97; LYMPH# 1.02 X1000 (1.2-3.4); MCH 28.4 PG (27-31); MCHC 30.5 g/dL (33-37); MCV 93.2 FL (81-99); MONO# 0.53 X1000 (0.11-0.59); MONO% 5.2 % (1.7-9.3); MPV 11.1 FL (7.4-10.4); NEUT% 84.4 % (42.2-75.2); PLT 112 X1000 (130-400); PROTIME 31.8 Seconds (11.0-16.0); RDW 18.8 % (11.5-14.5); WBC 10.19 X1000 (4.8-10.8)
[2019-10-11] MEDS ORDERED: ALBUMIN 25% IV ONE (06:00)
[2019-10-11 06:32] LABS: ALB/GLOB RATIO 1.1; ALBUMIN 3.6 g/dL (3.5-5.0); CALCIUM 7.5 mg/dL (8.8-10.2); CREATININE 4.2 mg/dL (0.7-1.2); MAGNESIUM 1.8 mg/dL (1.5-2.7); POTASSIUM 6.1 mmol/L (3.5-5.1); TOTAL BILIRUBIN 2.63 mg/dL (0.20-1.00)
--- NOTE | 2019-10-11 06:38 | Diag Imaging Result Doc PS360 ---
EXAM: CHEST-PORTABLE HISTORY: dyspnea TECHNIQUE: Single view COMPARISON: 10/10/2019 FINDINGS: No change in the endotracheal tube or nasogastric tube. The lungs are poorly expanded. There are bilateral infiltrates. There may be small pleural effusions. There is atelectasis in the right lung base. IMPRESSION: Interval worsening Electronically signed by Kiran Lizarraga 10/11/2019 6:36 AM
[2019-10-11] MEDS ORDERED: LASIX IV ONE ×2 (06:55→10:37)
[2019-10-11] MEDS ORDERED: D50W SYRINGE IV ONE (07:06)
[2019-10-11] MEDS ORDERED: CALCIUM GLUCONATE 4.65 MEQ in NS 50 ML IV ONE (07:06)
[2019-10-11] MEDS ORDERED: HUMULIN R IV ONE (07:06)
[2019-10-11] MEDS ORDERED: ALBUTEROL 0.5% INH CONC FOR HYPERKALEMIA INH ONE (07:07)
[2019-10-11] MEDS: DULCOLAX PR SCH ×3 (08:00→20:44)
[2019-10-11] MEDS ORDERED: LASIX 120 MG in NS 25 ML IV ONE (08:00)
[2019-10-11 09:09] LABS: ALLEN TEST YES; BE -12.9 mmoll (-3.0-3.0); BLOOD TYPE ARTERIAL; HCO3-(ACT) 14.9 mmoll (20.0-26.0); METHB 0.8 % (0.0-1.5); O2(CT) 9.2 mL/dL (15.0-23.0); O2HB 94.1 % (95.0-99.0); PCO2(98.6) 49 mmHg (35-45); PO2(98.6) 69 mmHg (60-100); SAMPLE BLOOD; SAO2 97.1 % (95.0-100.0); SRATE 18 BPM; THB 6.9 g/dL (11.5-17.4); TVOL 500 mL
[2019-10-11 09:11] LABS: MODALITY VENTILATOR
[2019-10-11 09:12] LABS: pH(98.6) 7.11 (7.35-7.45)
--- NOTE | 2019-10-11 09:40 | Diag Imaging Result Doc PS360 ---
EXAM: CHEST/ABD TUBE PLACEMENT HISTORY: OGT placement TECHNIQUE: Single view COMPARISON: 5:48 AM FINDINGS: Interval placement of a nasogastric tube. This overlies the esophagus and stomach. Endotracheal tube is unchanged. There are dense bilateral infiltrates which persist. IMPRESSION: Nasogastric tube enters the stomach. Electronically signed by Kiran Lizarraga 10/11/2019 9:38 AM
--- NOTE | 2019-10-11 10:16 | EKG Report ---
Test Performed on : 10/11/2019 09:54:12 AM Test Reason : Follow upEKG Blood Pressure : / mmHG Vent. Rate : 125 BPM Atrial Rate : 125 BPM P-R Int : 152 ms QRS Dur : 084 ms QT Int : 324 ms P-R-T Axes : 000 079 -22 degrees QTc Int : 467 ms Sinus tachycardia. Low voltage QRS Nonspecific T wave abnormality Abnormal ECG When compared with ECG of 10-OCT-2019 09:00, (Unconfirmed) T wave inversion now evident in Anterior leads Confirmed by Kacy Nathan MD ([id number]) on 10/13/2019 12:13:19 PM
[2019-10-11 12:09] LABS: BASO# 0.01 X1000 (0.0-0.2); BASO% 0.1 % (0.0-0.8); HEMATOCRIT 21.8 % (42.0-52.0); HEMOGLOBIN 6.7 g/dL (14.0-18.0); LYMPH# 1.37 X1000 (1.2-3.4); LYMPH% 9.6 % (20.5-51.1); MCH 29.5 PG (27-31); MCHC 30.7 g/dL (33-37); MONO# 0.94 X1000 (0.11-0.59); MONO% 6.6 % (1.7-9.3); MPV 11.9 FL (7.4-10.4); NEUT% 83.7 % (42.2-75.2); PLT 94 X1000 (130-400); RBC 2.27 XMIL (4.7-6.1); RDW 19.7 % (11.5-14.5); WBC 14.22 X1000 (4.8-10.8)
--- NOTE | 2019-10-11 12:09 | PROGRESS NOTE ---
DATE: 10/11/2019 INTERVAL HISTORY: Overnight, the patient received a total of 3 units of blood transfusion with appropriate rise in hemoglobin. He continued to require more and more intravenous pressor support, and phenylephrine and hydrocortisone were added. He started becoming hypoxic and so he was on 100% ventilator. SUBJECTIVE: Patient is intubated and off sedation but not responding. VITALS: Temperature of 96.3 degrees, pulse 118, respiratory rate 18, blood pressure 124/100, he is saturating 89% on mechanical ventilation. PHYSICAL EXAMINATION: The patient appears obtunded. Pupils are bilaterally equal, reacting to light. He has significant decreased air entry with inspiratory crackles, bilateral lung ragland. S1, S2 normal, tachycardic. No murmur, rub, or gallop. Abdomen is distended, soft, tympanic to percussion in the center. However, significant dullness all other quadrants. No bowel sounds. He has chronic appearing lymphedema. He has a urine catheter. He also has a central venous catheter in the groin. LABS: Suggestive of hemoglobin of 7.1, platelets 212,000. INR of 2.9. PH of 7.11, pCO2 of 49, PO2 of 69. He is saturating 50% on ventilator. He his hyperkalemic with potassium of 6.1, BUN 44, creatinine 4.2, blood glucose 211. He has worsening LFT and worsening creatine kinase. No positive microbiological data so far. IMAGING: NG tube was appropriately positioned. Electrocardiogram had a sinus tachycardia. ASSESSMENT AND PLAN: 1. Septic shock from acute colitis versus spontaneous bacterial peritonitis vs others. Continue intravenous antibiotics, intravenous fluids containing bicarbonate, and intravenous vasopressors to maintain goal more than 65 mmHg. Follow up final culture data. He is status post paracentesis. 2. Hypovolemic shock, likely due to acute blood loss and ascites. The potential source of blood loss could be intra-abdominal based on bloody ascitic fluid. He doesn't have microcytosis to suggest chronic blood loss. His stool looked yellow on my rectal exam and NG tube had only minimal coffee ground-bloody output. The source of the intra-abdominal bleeding is yet to be determined. However, he is too unstable to go down for a repeat CT scan of abdomen. He is status post 3 units of packed red blood cells with appropriate rise in hemoglobin. Continue intravenous Protonix intravenous twice a day for upper gastrointestinal bleed since he had bloody output in the nasogastric tube. Follow up Haptoglobin and LDH to evaluate for hemolysis. 3. Acute Respiratory failure and hypothermia, status post intubation and mechanical ventilation. He is on maximum ventilatory support. Appreciate pulmonology recommendations. 4. Acute renal failure, likely in the setting of septic shock leading to acute tubular necrosis. Nephrology team on board. Appreciate recommendation regarding SLED. 5. Liver cirrhosis with history of chronic hepatitis C. A repeat hepatitis panel and a viral load has been ordered. Previously on admission in 2017, he had more than 2 million hepatitis C virus by PCR RNA. 6. Disposition. The patient's condition is critical due to multiorgan failure. About 120 minutes of critical time was spent in performing the procedure and updating the family. I went to bedside multiple times and updated the patient's daughter, sister, mother and other significant members about his critical condition and declining course. His code status is full. Plan of care discussed with the nursing team as well. cc: Jean Marie Goodwin MD MTDD
[2019-10-11 12:13] LABS: ALBUMIN BODY FLUID 0.5 g/dL; AMYLASE BODY FLUID 35 U/L; GLUCOSE BODY FLUID 132 mg/dL; LDH BODY FLUID 530 U/L; TOTAL PROT BODY FLUID 1.7 g/dL
--- NOTE | 2019-10-11 12:16 | OPERATIVE NOTE ---
PROCEDURE DATE: NAME OF THE PROCEDURE: Paracentesis. INDICATION FOR THE PROCEDURE: Suspected spontaneous bacterial peritonitis. CONSENT FOR THE PROCEDURE: The patient's daughter was informed about the procedure, steps involved, advantages of the procedure, risks associated with the procedure including bleeding, introduction of infection, injury to internal organs. I had also explained to her about the alternatives, which could be not aspirating. I also had explained to her that in most immediate circumstances, paracentesis may not change any management plans. However, 3 or 4 days later, it could help us tailor antibiotics. She had agreed and provided informed consent. All of her questions and concerns were answered. ASSISTANTS DURING PROCEDURE: The patient's nurse at bedside. STEPS OF THE PROCEDURE: Initially, ultrasound was used to identify a pocket of fluid intra- abdominally for paracentesis. I looked on the right side of his abdomen and there was no easily approachable pocket so I moved the ultrasound towards his left lower quadrant of his abdomen. I could easily see a pocket of fluid under the ultrasound guidance. After that a time-out was performed, procedure and patient were identified. I wore sterile gloves, cleaned the area with Betadine. and draped the area, and again cleaned the area with Betadine. Then a paracentesis needle and cannula were connected with a syringe. The patient was intubated and did not need local anesthesia. The needle was introduced inside the abdomen through a previously marked point and as I was pushing the needle through the abdominal wall, I was drawing it back. As soon as I pierced through the muscle wall and entered the peritoneal cavity, the needle started drawing ascitic fluid filled which was blood tinged. Patient was on environmental monitoring specialist. After that, the syringe and needle were taken out. The cannula was connected using the catheter to a bottle for almost 500 mL of blood tinged ascitic fluid. After about 500 mL of ascitic fluid was drawn, needle was reapplied and cannula was withdrawn. The area was applied pressure on and a firm dressing was applied. The patient tolerated procedure well. I will send the sample for lab analysis. COMPLICATIONS: None during the procedure. The needle site is still oozing ascitic fluid. However, the flow was low and probably, the cannula was clotted so I did not drain much fluid except the 500 mL. I went to waiting room and updated the patient's family about the procedure. I answered all of their questions. I also updated them that in usual circumstances, I would send him down to get a CAT scan of his abdomen to look inside his abdomen for possible intraperitoneal bleeding. However, considering his tenuous cardiorespiratory status, requirement of 3-4 vasopressors, low pO2 on ABG and 100% FiO2, I would not be able to do so. cc: Jean Marie Goodwin MD [facility]
[2019-10-11 12:28] LABS: BANDS 16 % (0-1); LYMPHS 10 % (21-51); MONO 4 % (1-9); NRBC 2 % (0-0); SEGS 70 % (42-75)
[2019-10-11 12:36] LABS: BODY FLUID SOURCE PERITONEAL FLUID; MONOS 50 %; POLYS 50 %; WBC BF 1592 /cumm
[2019-10-11] MEDS ORDERED: NS 500 ML IV ONE (12:44)
[2019-10-11 12:57] LABS: ALB/GLOB RATIO 1.4; ALBUMIN 3.9 g/dL (3.5-5.0); CALCIUM 7.6 mg/dL (8.8-10.2); CREATININE 4.7 mg/dL (0.7-1.2); POTASSIUM 5.4 mmol/L (3.5-5.1); TOTAL BILIRUBIN 3.01 mg/dL (0.20-1.00); TOTAL PROTEIN 6.6 g/dL (6.3-8.3)
[2019-10-11 13:45] LABS: ALLEN TEST YES; BE -17.4 mmoll (-3.0-3.0); HCO3-(ACT) 10.9 mmoll (20.0-26.0); METHB 1.4 % (0.0-1.5); O2(CT) 7.5 mL/dL (15.0-23.0); SAMPLE BLOOD; SAO2 68.9 % (95.0-100.0); SRATE 18 BPM; TVOL 500 mL
[2019-10-11 13:46] LABS: BLOOD TYPE VENOUS
[2019-10-11 13:47] LABS: PCO2(98.6) 54 mmHg (35-45); pH(98.6) 6.99 (7.35-7.45)
[2019-10-11 13:48] LABS: MODALITY VENTILATOR; O2HB 66.7 % (95.0-99.0); PO2(98.6) 35 mmHg (60-100)
[2019-10-11] MEDS: SODIUM CHLORIDE 0.9% INJ SCH (14:04)
[2019-10-11] MEDS: SODIUM BICARBONATE 8.4% 150 MEQ in D5W 1,000 ML IV SCH (14:44)
--- NOTE | 2019-10-11 15:52 | PULMONOLOGY CONSULTATION ---
DATE: 10/11/2019 REQUESTING PROVIDER: Dr. Jean Marie Goodwin REASON FOR CONSULTATION: Ventilator management. HISTORY OF PRESENT ILLNESS: This is a 59-year-old male with medical history of liver cirrhosis, hepatitis C, gout, hypertension, psoriasis, chronic kidney disease, nicotine dependence, chronic bilateral lower extremity edema. The patient presented to the [place] ER yesterday with worsening shortness of breath. Upon arrival to the ER, the patient was noticed with hypoxemia, tachycardia, and hyperpnea. He was put on BiPAP eventually. However, he kept desaturated and developed shock. He was eventually intubated with Levophed on. Further workup revealed sepsis, acute renal failure, lactic acidosis, GI bleed, severe anemia, elevated liver enzymes, ascites and cirrhosis. He was transferred to ICU in our facility for further evaluation and management. He apparently received 3 units of packed red blood cells. Overnight, the patient stayed on maximum ventilator support. He also received IV fluids containing bicarbonate and 3 IV vasopressors including norepinephrine, phenylephrine and vasopressin. The patient currently is just status post paracentesis. There is a copious amount of blood tinged fluid coming out of the paracentesis site and saturating dressing, gown and pad underneath the patient. He is not on any sedation. He is not responsive to any painful physical stimuli. There are 2 family members who came in the room one time, but they left quickly, so all information is obtained from the chart. PAST MEDICAL HISTORY: 1. Liver cirrhosis. 2. Hepatitis C. 3. Gout. 4. Hypertension. 5. Psoriasis. 6. Chronic kidney disease. 7. Nicotine dependence. 8. Chronic bilateral lower extremity edema. PAST SURGICAL HISTORY: 1. Incision and drainage of sternoclavicular joint abscess secondary to MRSA. 2. Foot surgery. SOCIAL HISTORY: The patient smokes 1 pack per day. He denies any alcohol or illicit drug use. FAMILY HISTORY: Unknown. ALLERGIES: No known drug allergies. REVIEW OF SYSTEMS: Unable to be obtained. PHYSICAL EXAMINATION: Vital signs: Temperature 91.8, blood pressure 124/71, pulse 101, respiratory rate 28, oxygen saturation 96% on AC mechanical ventilator with spontaneous rate 18, FiO2 of 100%, tidal volume 500, PEEP of 8. General: Chronically ill appearing, intubated, obtunded. HEENT: Normocephalic. ET tube in place. Mucosa pink and slightly dry. Respiratory: Mechanical ventilation. Significantly diminished breathing sounds with only inspiratory crackles bilaterally. Cardiovascular: Tachycardia with S1 and S2 appreciated. Gastrointestinal: Distended, soft. No bowel sounds noted. Extremities: Bilateral lower extremity pitting edema 2 to 3 plus to the knees. Neurologic: Obtunded. Unresponsive to any painful physical stimuli. DIAGNOSTIC DATA: White blood cells 14.22, hemoglobin 6.7, hematocrit 21.8, platelets 94. Sodium 148, potassium 5.4, chloride 100, carbon dioxide 13, BUN is 46, creatinine 4.7, glucose 153, AST is 2340, ALT is 370, alkaline phosphatase 248, plasma lactate 9.4. ABG shows pH of 7.11, pCO2 of 49, pO2 of 69, HCO3 of 14.9, base excess minus 12.9, oxyhemoglobin 94.1, lactate 6.90 on AC ventilator with spontaneous rate 18, FiO2 of 100%, tidal volume of 500, and PEEP of 8. Imaging data: Chest x-ray this morning showed interval worsening with bilateral infiltrates, possible small pleural effusions and right lower lobe atelectasis. ASSESSMENT: This is a 59-year-old male with medical history of liver cirrhosis, hepatitis C, gout, hypertension, psoriasis, chronic kidney disease, nicotine dependence, and chronic bilateral lower extremity edema. He has been admitted to ICU since yesterday with septic shock from acute colitis versus spontaneous bacterial peritonitis, hypovolemic shock likely secondary to blood loss, respiratory failure requiring intubation and hypoxemia, acute renal failure. 1. Acute respiratory failure. 2. Septic shock likely secondary to acute colitis versus spontaneous bacterial peritonitis. 3. Hypovolemia shock. 4. Acute renal failure. 5. Hypoxemia. 6. Liver cirrhosis with history of hepatitis C. PLAN: 1. Continue current treatment and supportive care per admitting and other teams on the case. 2. Ventilation check and titrate to the patient's needs for clinical protocols with close monitoring. 3. Sedation with p.r.n. morphine and p.r.n. Ativan titrated to the patient's needs per clinical protocols with close monitoring. 4. Pressors titrated to the patient's needs per clinical protocols with close monitoring. 5. Continue antibiotics including vancomycin and Zosyn per Dr. Goodwin. 6. IV Solu Cortef and bronchodilators. 7. Poor prognosis. 8. Further recommendations pending hospital course. Dr. Robles did the evaluation, examination and management. CHLORINATOR did the scribing for Dr. Robles according to his directions. Total evaluation time in minutes: 36. Thank you for the courtesy of this consult. Dictated by JEAN MARIE Yañez for Hany Robles MD cc: JEAN MARIE Yañez MD [facility]
--- NOTE | 2019-10-11 16:06 | PROVIDER PROGRESS NOTE ---
Progress Note Subjective: Intubated and sedated. His daughter was at bedside and asking questions about his plan of care. All questions answered and she had no further questions. Objective: temperature 96.3, pulse 118, respirations 21, blood pressure 124/109, O2 sat 100% on 100% FiO2 mechanical ventilation. General: Chronically ill appearing -[place] male in no acute distress. HEENT: normocephalic, atraumatic, conjunctiva pink,pupils equal. Mucous membranes moist. Trachea midline. Skin: Warm and dry. Neck: supple, 6-8 cm JVD observed. Cardiovascular: S1s2, tachycardic rate and rhythm. No murmur. Rate dependant gallop. Respiratory: high-pitched rhonchi bilaterally. Abdomen: firm, distended, nontender. Hypoactive bowel sounds, NG tube in place with bloody output. :non inspected, ryan in place with no urine. Extremities: generalized pitting edema greater in the bilateral lower extremities with chronic lymphedema. Left groin central line. Neurological: sedated. Labs: WBC 10.19, hemoglobin 7.1, hematocrit 23.3, platelet count 112, sodium 138, potassium 6.1, chloride 102, carbon dioxide 15, anion gap 21, BUN 44, creatinine 4.2, plasma lactate 9.6. Intake 7698, output 285. Impression: Acute on chronic kidney disease. Likely acute ischemic tubular necrosis related to septic shock. Currently 6Liters positive. He is anuric and has hyperkalemia with anion gap metabolic acidosis. We have discussed with his daughter the option of dialysis. At this time she wishes to continue with this plan. I will contact Dr. Parsons about placing access and attempting slow low efficiency dialysis at bedside. However, he is on three vasopressors so ultrafiltration will be as tolerated. Blood pressure. He remains on Alec-Synephrine, levophed, and vasopressin. Fluid volume. Overloaded. We will attempt SLED when access is obtained. Anemia. 4 units PRBCs transfused. Electrolytes and acid base balance. We will attempt to correct this with SLED. He is receiving sodium bicarbonate IV. Medication review. Renal dosed antibiotics.
--- NOTE | 2019-10-11 19:41 | GASTROENTEROLOGY CONSULTATION ---
DATE: 10/11/2019 REASON FOR CONSULTATION: History of cirrhosis of the liver, GI bleeding. HISTORY OF PRESENT ILLNESS: This is a 59-year-old male who came into the hospital to the emergency room with shortness of breath. Apparently he had been in to the emergency room several weeks ago with similar complaints. He had denied fever or chills in the emergency room. He had reported some diarrhea with bloody stools and abdominal distention. His respiratory status deteriorated and he had to be intubated. He is being treated with sepsis protocol. He has an NG tube in place with some bloody drainage noted. At the time of my rounds the patient had just had attempted paracentesis at the bedside by Dr. Goodwin. He was only able to pull off a small amount of fluid from the abdomen. Since then he has had bleeding from the puncture site. Patient is currently nonresponsive. Patient has been seen by Nephrology for acute kidney disease on chronic kidney disease in the setting of septic shock. Patient has received 4 units of packed red blood cells and a unit of fresh frozen plasma. His PT/INR today is 31.8 and 2.97, D-dimer 12.01. We have only seen the patient 1 time when he was in the hospital in 2017. At that time he was treated for MRSA of the right supraclavicular abscess. He had some workup done due to possible cirrhosis of the liver and history of chronic hepatitis C. Patient did not follow back in the office. We have not seen the patient in the office before only in the hospital in 2017 during that admission. There is no family at the bedside to discuss review of systems. PAST MEDICAL HISTORY: Cirrhosis of the liver, history of hepatitis C, chronic kidney disease, hypertension, psoriasis, nicotine dependent. PAST SURGICAL HISTORY: History of a supraclavicular abscess MRSA in 2017, foot surgery. ALLERGIES: No known drug allergies. HOME MEDICATIONS: Albuterol inhaler every 6 hours as needed, allopurinol 100 mg daily, azithromycin 250 mg daily, Zyrtec 10 mg daily, clonidine 0.1 mg daily, Flexeril 10 mg 3 times a day as needed, Nexium 40 mg daily, Pepcid daily, gabapentin every night, labetalol, Robaxin 500 mg daily, lisinopril hydrochlorothiazide 20/25 daily, oxycodone 3 times a day, prednisone 50 mg daily. SOCIAL HISTORY: Smokes a pack of cigarettes a day. No reported alcohol or drug use. Unknown family history. REVIEW OF SYSTEMS: Unable to obtain due to patient's intubation and nonresponsiveness, no family is at the bedside at the time of my visit. Vital signs: Temperature 98.1 degrees, pulse 107, respirations 18, blood pressure 105/56. General: Patient is nonresponsive he is intubated on mechanical ventilation, he is sedated. HEENT: Normocephalic, atraumatic. Pupils equal, round, reactive to light. Cardiovascular: Tachycardic with regular rate. Respiratory: With rhonchi present bilaterally. Abdomen: Distended, he has a dressing in place over puncture wound from recent paracentesis with bright red bleeding noted on the dressing and on the bedding. Extremities: With lower extremity edema noted and callused feet and ankles. DIAGNOSTIC RESULTS: Laboratory. Hematology. WBC 14.22, hemoglobin 6.7, hematocrit 21.8, MCV 96.0, platelet 94,000. Coagulation. Pro time 31.8, INR 2.97, PTT 40.6, D- dimer 12.01. Chemistry sodium 138, potassium 5.4, chloride 100, CO2 13, BUN 46, creatinine 4.7, glucose 153, calcium 7.6, total bilirubin 3.01, AST 2340, ALT 370, alkaline phosphatase 248, ammonia 213, creatine kinase 637, index 3.7, CK MB 23.61, troponin 50. Abdominal pelvis CT scan from 10/10/2019 showed limited study, thickening in infiltrates in the lungs, distended esophagus, large volume ascites, cirrhosis of the liver, thickening of the ascending colon, questionable colitis, body wall anasarca, patient has had verification of NG tube placement. ASSESSMENT AND PLAN: 1. Sepsis shock. Continue supportive care, antibiotics, respiratory management. 2. Respiratory failure on mechanical ventilation. Continue respiratory management, patient has been seen by Pulmonology. 3. Acute renal failure. Patient has been seen by Nephrology. 4. Cirrhosis of the liver and history of hepatitis C, patient has not been following with a coal carrier that we know of. We have only seen the patient in the hospital in 2017. 5. Unfortunately patient is critical. There was no family at the bedside for me to speak to. I have discussed this case with Dr. Wheeler. Further plans to be made as needed. Continue supportive care and current management. Thank you for this consultation. Dictated by JEAN MARIE Chairez for Geronimo Wheeler MD cc: JEAN MARIE Smart MD [facility]
[2019-10-11 19:49] LABS: BASO# 0.01 X1000 (0.0-0.2); BASO% 0.1 % (0.0-0.8); HEMOGLOBIN 7.6 g/dL (14.0-18.0); IMM GRAN# 0.06 X1000 (0.0-0.04); IMM GRAN% 0.4 % (0.0-0.5); LYMPH# 1.88 X1000 (1.2-3.4); LYMPH% 12.4 % (20.5-51.1); MCHC 30.4 g/dL (33-37); MCV 95.4 FL (81-99); MONO# 0.78 X1000 (0.11-0.59); MONO% 5.1 % (1.7-9.3); MPV 11.5 FL (7.4-10.4); NEUT# 12.46 X1000 (1.4-6.5); PLT 85 X1000 (130-400); RBC 2.62 XMIL (4.7-6.1); RDW 18.7 % (11.5-14.5); WBC 15.19 X1000 (4.8-10.8)
[2019-10-11 20:14] LABS: ALB/GLOB RATIO 1.3; ALBUMIN 3.7 g/dL (3.5-5.0); CALCIUM 7.4 mg/dL (8.8-10.2); CREATININE 5.1 mg/dL (0.7-1.2); MAGNESIUM 1.8 mg/dL (1.5-2.7); PHOSPHORUS 11.2 mg/dL (2.7-4.5); POTASSIUM 5.7 mmol/L (3.5-5.1); TOTAL BILIRUBIN 3.2 mg/dL (0.20-1.00); TOTAL PROTEIN 6.5 g/dL (6.3-8.3)
--- NOTE | 2019-10-11 21:54 | CONSULTATION ---
DATE OF CONSULTATION: 10/11/2019 HISTORY OF PRESENT ILLNESS: Mr. Vaughn Moralez is a 59-year-old black male hospitalized in our ICU critically ill. He is on the ventilator. He has a left groin central venous line placed by Dr. Joaquin over the weekend. He recently had a paracentesis and he has bleeding from that site. His coagulations are elevated. His INR is 2.97. PT is 31.8. His hematocrit is 22. BUN and creatinine are 46 and 4.7. His plasma lactate is 9.7. His liver function tests were markedly elevated. He has a base deficit of -17. He is on 100% FiO2 on the ventilator with a PEEP of 8. PLAN: We will hold off this evening to place any Vas-Catheter because of his coagulation problems. He is receiving blood products. He is critically ill. I discussed the situation with the family. I will reassess tomorrow. cc: Scarlett Parsons MD
[2019-10-12 00:15] LABS: BASO# 0.03 X1000 (0.0-0.2); BASO% 0.2 % (0.0-0.8); HEMATOCRIT 24.6 % (42.0-52.0); HEMOGLOBIN 7.6 g/dL (14.0-18.0); IMM GRAN# 0.12 X1000 (0.0-0.04); IMM GRAN% 0.7 % (0.0-0.5); LYMPH# 2.62 X1000 (1.2-3.4); LYMPH% 15.6 % (20.5-51.1); MCHC 30.9 g/dL (33-37); MCV 93.9 FL (81-99); MONO# 0.95 X1000 (0.11-0.59); MONO% 5.6 % (1.7-9.3); MPV 10.5 FL (7.4-10.4); NEUT% 77.9 % (42.2-75.2); PLT 78 X1000 (130-400); RBC 2.62 XMIL (4.7-6.1); RDW 18.9 % (11.5-14.5); WBC 16.82 X1000 (4.8-10.8)
[2019-10-12 00:29] LABS: ALB/GLOB RATIO 1.4; ALBUMIN 3.6 g/dL (3.5-5.0); CALCIUM 7.2 mg/dL (8.8-10.2); CREATININE 5.3 mg/dL (0.7-1.2); POTASSIUM 5.7 mmol/L (3.5-5.1); TOTAL BILIRUBIN 3.43 mg/dL (0.20-1.00); TOTAL PROTEIN 6.2 g/dL (6.3-8.3)
[2019-10-12] MEDS: LEVOPHED 8 MG in D5 1/2 NS 250 ML IV SCH ×5 (01:32→21:42)
[2019-10-12] MEDS: NEO-SYNEPHRINE 50 MG in NS 250 ML IV SCH ×6 (01:33→21:43)
[2019-10-12] MEDS: SODIUM CHLORIDE 0.9% INJ SCH (01:37)
[2019-10-12] MEDS: PROTONIX IV SCH (01:37)
[2019-10-12] MEDS: ZOSYN 2.25 GM in NS 50 ML IV SCH ×3 (01:38→18:20)
[2019-10-12] MEDS: ATROVENT NEB INH SCH ×6 (03:56→23:09)
[2019-10-12] MEDS: XOPENEX NEB INH SCH ×6 (03:56→23:09)
[2019-10-12] MEDS ORDERED: VANCOMYCIN 1.45 GM in NS 250 ML IV SCH (05:00)
[2019-10-12] MEDS: SOLU-CORTEF IV SCH ×4 (05:18→23:45)
[2019-10-12] MEDS: SODIUM BICARBONATE 8.4% 150 MEQ in D5W 1,000 ML IV SCH ×2 (05:38→21:18)
[2019-10-12] MEDS: ATIVAN IV PRN (05:43)
[2019-10-12] MEDS: MORPHINE IV PRN (05:43)
[2019-10-12 05:55] LABS: ALLEN TEST YES; BE -12.3 mmoll (-3.0-3.0); BLOOD TYPE ARTERIAL; HCO3-(ACT) 15.1 mmoll (20.0-26.0); METHB 1.2 % (0.0-1.5); O2(CT) 12.2 mL/dL (15.0-23.0); PCO2(98.6) 46 mmHg (35-45); PO2(98.6) 51 mmHg (60-100); SAMPLE BLOOD; SAO2 87.9 % (95.0-100.0); SRATE 18 BPM; THB 10.2 g/dL (11.5-17.4); TVOL 500 mL
[2019-10-12 05:56] LABS: pH(98.6) 7.15 (7.35-7.45)
[2019-10-12 05:58] LABS: MODALITY VENTILATOR; O2HB 85.2 % (95.0-99.0)
[2019-10-12 05:58] LABS: BASO# 0.05 X1000 (0.0-0.2); BASO% 0.3 % (0.0-0.8); EOS# 0.01 X1000 (0.0-0.7); EOS% 0.1 % (0.0-10.0); HEMOGLOBIN 7.8 g/dL (14.0-18.0); IMM GRAN# 0.15 X1000 (0.0-0.04); IMM GRAN% 0.8 % (0.0-0.5); LYMPH# 3.22 X1000 (1.2-3.4); LYMPH% 17.1 % (20.5-51.1); MCHC 31.2 g/dL (33-37); MCV 92.9 FL (81-99); MONO# 1.21 X1000 (0.11-0.59); MONO% 6.4 % (1.7-9.3); MPV 12.1 FL (7.4-10.4); NEUT# 14.15 X1000 (1.4-6.5); NEUT% 75.3 % (42.2-75.2); PLT 79 X1000 (130-400); RBC 2.69 XMIL (4.7-6.1); RDW 18.8 % (11.5-14.5); WBC 18.79 X1000 (4.8-10.8)
[2019-10-12 06:05] LABS: INR 2.97; PROTIME 31.8 Seconds (11.0-16.0)
[2019-10-12 06:29] LABS: ALB/GLOB RATIO 1.3; ALBUMIN 3.4 g/dL (3.5-5.0); CREATININE 5.5 mg/dL (0.7-1.2); MAGNESIUM 1.7 mg/dL (1.5-2.7); POTASSIUM 5.6 mmol/L (3.5-5.1); TOTAL BILIRUBIN 3.62 mg/dL (0.20-1.00)
[2019-10-12 07:14] LABS: LYMPHS 19 % (21-51); MONO 5 % (1-9); SEGS 76 % (42-75)
--- NOTE | 2019-10-12 07:42 | Diag Imaging Result Doc PS360 ---
EXAM: CHEST-PORTABLE INDICATION: dyspnea TECHNIQUE: One view COMPARISON: 10/11/2019 FINDINGS: Support tubes and lines are in stable positions. Dense infiltrates seen throughout both lungs are unchanged. No new consolidation is identified. Cardiac silhouette is stable. IMPRESSION: Stable chest. Electronically signed by Neftali Claire 10/12/2019 7:39 AM
[2019-10-12] MEDS: NS NEB INH SCH ×4 (07:59→23:09)
[2019-10-12] MEDS: DULCOLAX PR SCH ×2 (08:01→20:50)
[2019-10-12] MEDS ORDERED: VITAMIN K 10 MG in NS 50 ML IV ONE (12:00)
[2019-10-12] MEDS: PROTONIX 80 MG in NS 80 ML IV SCH ×2 (12:04→21:18)
[2019-10-12 13:11] LABS: BASO# 0.05 X1000 (0.0-0.2); BASO% 0.2 % (0.0-0.8); EOS# 0.01 X1000 (0.0-0.7); HEMATOCRIT 26.3 % (42.0-52.0); HEMOGLOBIN 8.2 g/dL (14.0-18.0); IMM GRAN# 0.28 X1000 (0.0-0.04); IMM GRAN% 1.2 % (0.0-0.5); LYMPH# 4.14 X1000 (1.2-3.4); LYMPH% 18.3 % (20.5-51.1); MCH 29.3 PG (27-31); MCHC 31.2 g/dL (33-37); MCV 93.9 FL (81-99); MONO# 1.43 X1000 (0.11-0.59); MONO% 6.3 % (1.7-9.3); MPV 12.4 FL (7.4-10.4); NEUT# 16.69 X1000 (1.4-6.5); PLT 72 X1000 (130-400); RDW 19.4 % (11.5-14.5)
[2019-10-12 13:28] LABS: BANDS 5 % (0-1); LYMPHS 7 % (21-51); MONO 7 % (1-9); NRBC 9 % (0-0); SEGS 79 % (42-75)
[2019-10-12 13:30] LABS: HEPATITIS PROFILE ACUTE SEE COMMENTS
[2019-10-12 13:34] LABS: TOTAL BILIRUBIN 4.23 mg/dL (0.20-1.00)
[2019-10-12 13:48] LABS: RETIC% 3.39 % (0.8-2.1); RETIC-HE 21.3 PG (28.2-36.6)
[2019-10-12 14:08] LABS: LDH > 2500 U/L (135-225)
--- NOTE | 2019-10-12 14:33 | NEUROLOGY CONSULTATION ---
DATE: 10/12/2019 REASON FOR CONSULT: Altered mental status. HISTORY OF PRESENT ILLNESS: This is a 59-year-old, black male who was admitted 2 days ago. History is from the patient's family and chart review. Apparently, the patient drove himself to [facility], [place] with complaints of shortness of breath. He quickly decompensated, becoming hypothermic, hypotensive, and had respiratory failure. He was intubated and mechanically ventilated. He was placed on pressors. He was transferred to [facility] to the ICU. He had presumed septic shock and he had hypovolemic shock with concern for upper GI bleed. He has had acute on chronic kidney failure. The patient was placed on sedation, I believe with propofol, when he was intubated on 10/10/2019. Sedation was held the following day. In reviewing his medication list, he has p.r.n. lorazepam 2 mg ordered and he received a 2 mg dose on 10/10/2019 at 23:00, 10/11/2019 at 1 o'clock in the morning, 10/11/2019 at 5 o'clock in the morning, and 10/12/2019 close to 6 o'clock in the morning. He also has morphine 4 mg as needed and received a dose in the early hours of 10/11/2019, again 10/11/2019 at 5 o'clock in the morning, and 10/12/2019 at nearly 6 o'clock in the morning. The patient has not woken up since propofol was held and, thus, neurology has been consulted to evaluate. PAST MEDICAL HISTORY: Chronic liver disease and hepatitis C, hypertension, psoriasis, gout, chronic kidney disease, sternoclavicular joint abscess in 2017, chronic bilateral lower extremity edema. FAMILY HISTORY: The patient had denied known family history in immediate family members. SOCIAL HISTORY: Apparently, he endorsed still smoking a pack per day. Family at the bedside denied knowing that the patient was smoking. They denied illicit drug use. They reported occasional social alcohol. ALLERGIES: No known drug allergies listed. CURRENT MEDICATIONS: Reviewed in the chart and pertinent as per above. REVIEW OF SYSTEMS: Unobtainable. PHYSICAL EXAMINATION: Vital Signs: He has been hypothermic, current normal temperature. Blood pressure current 124/74. He has had several hypotensive readings intermittently as low as in the 70s systolic and 30s diastolic. Pulse today is 98, 145. He is on the ventilator. General: Mr. Moralez is supine in bed, on mechanical ventilation. He has his eyes closed. With noxious sternal rub, he has some subtle squirming of the trunk and upper extremities, a little bit of a grimace. He does not follow commands. Pupils are equal and sluggishly reactive to bright light, 4 mm to 3 mm OU. Gaze was conjugate. I did not see definite horizontal eye movement with passive head turning. He had brisk corneal reflexes bilaterally. There is a cough. We did not appreciate a gag today. No blink to threat. Tone appears equal in the limbs. I did not see significant spontaneous limb movement. With noxious stimuli applied to the proximal limbs, there was some mild grimace. There is significant swelling of the entire legs bilaterally. Reflexes are absent in the lower extremities. No clonus. Plantar response is silent, trace at the biceps bilaterally. DIAGNOSTICS: There has not been imaging of the brain. White count 22.6, hemoglobin 8.2, hematocrit 26, platelets 72,000. PT is elevated, as is the INR, 31.8 and 2.97. PH on arrival was 6.95, most recent pH 7.15, pCO2 of 46, PO2 of 51 with FiO2 of 90. Lactate has been elevated, currently 8.5. Normal sodium. BUN was 44 on admission, now 51. BUN had been this high and higher in 2017 but he has also had some normal readings between then and now. Creatinine 5.5 which is up from his baseline. Calcium 7, phosphorus 10, magnesium 1.7. Blood sugars 115-160. Ammonia 213 which is significantly elevated. AST 841 on arrival, now above 2800. ALT 181 on arrival, now 465. ASSESSMENT AND PLAN: Global encephalopathy without definite focal feature. Multiple factors contributing. Recommend continued management of his medical conditions. I would hold all sedating medications as able as he has continued to receive both morphine and lorazepam. An EEG has been ordered and we will review that. I would recommend a head CT once he is able to go for that. Thank you for the consultation. cc: Salina Bonilla MD [facility] HOSPITALMarguerite
[2019-10-12 14:55] LABS: PTT 63.6 Seconds (22.3-41.8)
[2019-10-12 15:12] LABS: ALBUMIN 3.2 g/dL (3.5-5.0); CALCIUM 6.5 mg/dL (8.8-10.2); CREATININE 6.1 mg/dL (0.7-1.2); POTASSIUM 6.4 mmol/L (3.5-5.1); TOTAL BILIRUBIN 4.07 mg/dL (0.20-1.00); TOTAL PROTEIN 6.3 g/dL (6.3-8.3)
[2019-10-12] MEDS ORDERED: CALCIUM GLUCONATE 1 GM in NS 50 ML IV ONE ×2 (15:34→20:51)
[2019-10-12] MEDS ORDERED: ALBUTEROL 0.5% INH CONC FOR HYPERKALEMIA INH ONE (15:34)
[2019-10-12] MEDS ORDERED: HUMULIN R IV ONE (15:35)
[2019-10-12] MEDS ORDERED: D50W SYRINGE IV ONE (15:35)
[2019-10-12] MEDS ORDERED: SODIUM BICARBONATE 8.4% IV ONE (15:36)
--- NOTE | 2019-10-12 16:23 | PROVIDER PROGRESS NOTE ---
Progress Note Subjective: Unable to answer questions. Intubated. Objective: temperature 98.4, pulse 103, respirations 21, blood pressure 117/67, 02 sat 94% on 90% FiO2 mechanical ventilation. General: Chronically ill appearing -Filipino male in no acute distress. HEENT: normocephalic, atraumatic, conjunctiva jaundice, pupils sluggish with lipomas to OU. Trachea midline. Skin: Warm and dry. Neck: supple, 6-8 cm JVD observed. Cardiovascular: S1s2, tachycardic rate and rhythm. No murmur. Rate dependant gallop. Respiratory: high-pitched rhonchi and rales bilaterally. Abdomen: slightly firm, distended, nontender. Hypoactive bowel sounds, NG tube in place to LIS with coffee ground output. :non inspected, ryan in place with 30ml urine in 24 hours. Scrotal edema noted. Extremities: generalized pitting edema greater in the bilateral lower extremities with chronic lymphedema. Left groin central line. Neurological: sedated. Labs: WBC 18.79, hemoglobin 7.8, hematocrit 25.0, platelet count 79, PT 31.8, INR 2.97, sodium 137, potassium 5.6, chloride 99, carbon dioxide 15, and I get 23, BUN 51, creatinine 5.5, corrected calcium 7.6, plasma lactate 6.2. Intake 5916, output 1180. Impression: Acute on chronic kidney disease. Likely acute ischemic tubular necrosis related to septic shock. He had 30ml urine output in 24hours. His coagulation studies prevented him from surgery placing a dialysis access yesterday. Continue supportive care and plan for SLED after access is placed. Blood pressure. He remains on Alec-Synephrine and levophed, but is off vasopressin. Fluid volume. Overloaded. We will attempt SLED when access is obtained. Anemia. Remains low with transfusions. Total and direct bilirubin, haptoglobin ordered. Electrolytes and acid base balance. We will attempt to correct this with SLED. He is receiving sodium bicarbonate IV. Medication review. No other changes.
--- NOTE | 2019-10-12 18:45 | PROVIDER PROGRESS NOTE ---
Progress Note Dr. Robles Progress Note/Pulmonary and or critical care We appreciated progress of care, Complications, change in diagnosis, and instructions to patient. Subjective: We note the level of consciousness, bed (chair) position, family presence (if any), level of lethargy, feeling of symptoms, and changes from baseline condition/symptom. The patient is intubated. He remains unresponsive to painful stimuli. There is fresh red bloody drainage noted in the hose attaching to the ET tube. Patients daughter and mother at the bedside. Objective: Vital Signs: We reviewed EMR current values for Pulse rate, Blood pressure, Pulse rate, respiratory rate and Pulse oximetry. Also noted other values and trends if present (e.g. I/O, CVP). 97.7 (No fever in last 24 hours), SC 145, RR 18, BP 124/74 and SaO2 95 on AC 18, 90%, 500, 8. I/O 4736 ml Physical Examination: General: Lying in bed with no acute distress noted. Fresh red bloody drainage noted in the hose attaching to the ETT. HEENT: Normocephalic. Atraumatic. Mucus pink and moist. Chest: Mechanically ventilated. Symmetrical excursion. Coarse breathing sounds throughout with expiratory wheezing and inspiratory crackles. CVS: Tachycardia. Regular rate and rhythm with S1 and S2 appreciated. Abdomen: Soft. Non-distended. No bowel sounds noted in all 4 quadrants. Extremities: BLE chronic lymphedema with severe pitting edema 4+. Neuro: Unresponsive to painful stimuli. Labs and Radiology: Reviewed available labs and radiology values available at time of EMR review. Laboratory Results 10/11/19 10/11/19 10/11/19 11:45 11:45 19:15 WBC RBC Hgb Hct MCV MCH MCHC RDW Std Deviation Plt Count MPV Immature Gran % (Auto) Neut % (Auto) Lymph % (Auto) Tompkins % (Auto) Eos % (Auto) Baso % (Auto) Immature Gran # (Auto) Neut # (Auto) Lymph # (Auto) Tompkins # (Auto) Eos # (Auto) Baso # (Auto) Segmented Neutrophils Band Neutrophils Lymphocytes Monocytes Nucleated RBCs Atypical Lymphocytes Percent Retic Retic Hgb Equivalent PT INR PTT (Actin FS) Fibrinogen D-Dimer, Quantitative Specimen Type Sample Site pH pCO2 pO2 HCO3 Base Excess Oxyhemoglobin ABG O2 Sat (Calculated) ABG O2 Saturation ABG Carboxyhemoglobin ABG Methemoglobin Aureliano Test A-a O2 Difference Total Hemoglobin Lactate Blood Gas Modality Vent Mode Spontaneous Rate FiO2 % Tidal Volume PEEP Sodium 140 Potassium 5.7 H Chloride 102 Carbon Dioxide 15 L Anion Gap 23 BUN 47 H Creatinine 5.1 H Estimated GFR/1.73 m2 14 BUN/Creatinine Ratio 9 Glucose 134 H POC Glucose Calculated Osmolality 294 Calcium 7.4 L Phosphorus 11.2 H Magnesium 1.8 Total Bilirubin 3.20 H Direct Bilirubin AST 2866 H ALT 430 H Alkaline Phosphatase 262 H Lactate Dehydrogenase Total Protein 6.5 Albumin 3.7 Globulin 2.8 Albumin/Globulin Ratio 1.3 Plasma Lactate Random Vancomycin Hepatitis Panel SEE COMMENTS Hepatitis C RNA Quant SEE COMMENTS 10/11/19 10/11/19 10/11/19 19:15 19:15 20:22 WBC 15.19 H RBC 2.62 L Hgb 7.6 L Hct 25.0 L MCV 95.4 MCH 29.0 MCHC 30.4 L RDW Std Deviation 18.7 H Plt Count 85 L MPV 11.5 H Immature Gran % (Auto) 0.4 Neut % (Auto) 82.0 H Lymph % (Auto) 12.4 L Tompkins % (Auto) 5.1 Eos % (Auto) 0.0 Baso % (Auto) 0.1 Immature Gran # (Auto) 0.06 H Neut # (Auto) 12.46 H Lymph # (Auto) 1.88 Tompkins # (Auto) 0.78 H Eos # (Auto) 0.00 Baso # (Auto) 0.01 Segmented Neutrophils Band Neutrophils Lymphocytes Monocytes Nucleated RBCs Atypical Lymphocytes Percent Retic Retic Hgb Equivalent PT INR PTT (Actin FS) Fibrinogen D-Dimer, Quantitative Specimen Type Sample Site pH pCO2 pO2 HCO3 Base Excess Oxyhemoglobin ABG O2 Sat (Calculated) ABG O2 Saturation ABG Carboxyhemoglobin ABG Methemoglobin Aureliano Test A-a O2 Difference Total Hemoglobin Lactate Blood Gas Modality Vent Mode Spontaneous Rate FiO2 % Tidal Volume PEEP Sodium Potassium Chloride Carbon Dioxide Anion Gap BUN Creatinine Estimated GFR/1.73 m2 BUN/Creatinine Ratio Glucose POC Glucose 160 H Calculated Osmolality Calcium Phosphorus Magnesium Total Bilirubin Direct Bilirubin AST ALT Alkaline Phosphatase Lactate Dehydrogenase Total Protein Albumin Globulin Albumin/Globulin Ratio Plasma Lactate 9.1 H* Random Vancomycin Hepatitis Panel Hepatitis C RNA Quant 10/11/19 10/11/19 10/12/19 23:41 23:41 01:05 WBC 16.82 H RBC 2.62 L Hgb 7.6 L Hct 24.6 L MCV 93.9 MCH 29.0 MCHC 30.9 L RDW Std Deviation 18.9 H Plt Count 78 L MPV 10.5 H Immature Gran % (Auto) 0.7 H Neut % (Auto) 77.9 H Lymph % (Auto) 15.6 L Tompkins % (Auto) 5.6 Eos % (Auto) 0.0 Baso % (Auto) 0.2 Immature Gran # (Auto) 0.12 H Neut # (Auto) 13.10 H Lymph # (Auto) 2.62 Tompkins # (Auto) 0.95 H Eos # (Auto) 0.00 Baso # (Auto) 0.03 Segmented Neutrophils Band Neutrophils Lymphocytes Monocytes Nucleated RBCs Atypical Lymphocytes Percent Retic Retic Hgb Equivalent PT INR PTT (Actin FS) Fibrinogen D-Dimer, Quantitative Specimen Type Sample Site pH pCO2 pO2 HCO3 Base Excess Oxyhemoglobin ABG O2 Sat (Calculated) ABG O2 Saturation ABG Carboxyhemoglobin ABG Methemoglobin Aureliano Test A-a O2 Difference Total Hemoglobin Lactate Blood Gas Modality Vent Mode Spontaneous Rate FiO2 % Tidal Volume PEEP Sodium 140 Potassium 5.7 H Chloride 101 Carbon Dioxide 16 L Anion Gap 23 BUN 48 H Creatinine 5.3 H Estimated GFR/1.73 m2 14 BUN/Creatinine Ratio 9 Glucose 135 H POC Glucose Calculated Osmolality 294 Calcium 7.2 L Phosphorus Magnesium Total Bilirubin 3.43 H Direct Bilirubin AST 2972 H ALT 455 H Alkaline Phosphatase 269 H Lactate Dehydrogenase Total Protein 6.2 L Albumin 3.6 Globulin 2.6 Albumin/Globulin Ratio 1.4 Plasma Lactate 7.8 H* Random Vancomycin Hepatitis Panel Hepatitis C RNA Quant 10/12/19 10/12/19 10/12/19 05:44 05:45 05:45 WBC 18.79 H RBC 2.69 L Hgb 7.8 L Hct 25.0 L MCV 92.9 MCH 29.0 MCHC 31.2 L RDW Std Deviation 18.8 H Plt Count 79 L MPV 12.1 H Immature Gran % (Auto) 0.8 H Neut % (Auto) 75.3 H Lymph % (Auto) 17.1 L Tompkins % (Auto) 6.4 Eos % (Auto) 0.1 Baso % (Auto) 0.3 Immature Gran # (Auto) 0.15 H Neut # (Auto) 14.15 H Lymph # (Auto) 3.22 Tompkins # (Auto) 1.21 H Eos # (Auto) 0.01 Baso # (Auto) 0.05 Segmented Neutrophils 76 H Band Neutrophils Lymphocytes 19 L Monocytes 5 Nucleated RBCs Atypical Lymphocytes Percent Retic Retic Hgb Equivalent PT INR PTT (Actin FS) Fibrinogen D-Dimer, Quantitative Specimen Type ARTERIAL Sample Site R RADIAL pH 7.15 L* pCO2 46 H pO2 51 L HCO3 15.1 L Base Excess -12.3 L Oxyhemoglobin 85.2 L* ABG O2 Sat (Calculated) 12.2 L ABG O2 Saturation 87.9 L ABG Carboxyhemoglobin 1.80 ABG Methemoglobin 1.2 Aureliano Test YES A-a O2 Difference 533.0 Total Hemoglobin 10.2 L Lactate 8.50 H* Blood Gas Modality VENTILATOR Vent Mode A/C Spontaneous Rate 18 FiO2 % 90.0 Tidal Volume 500 PEEP 8.0 Sodium 137 Potassium 5.6 H Chloride 99 Carbon Dioxide 15 L Anion Gap 23 BUN 51 H Creatinine 5.5 H Estimated GFR/1.73 m2 13 BUN/Creatinine Ratio 9 Glucose 115 H POC Glucose Calculated Osmolality 288 Calcium 7.0 L* Phosphorus 10.0 H Magnesium 1.7 Total Bilirubin 3.62 H Direct Bilirubin AST 2859 H ALT 465 H Alkaline Phosphatase 283 H Lactate Dehydrogenase Total Protein 6.0 L Albumin 3.4 L Globulin 2.6 Albumin/Globulin Ratio 1.3 Plasma Lactate Random Vancomycin Hepatitis Panel Hepatitis C RNA Quant 10/12/19 10/12/19 10/12/19 05:45 05:45 09:33 WBC RBC Hgb Hct MCV MCH MCHC RDW Std Deviation Plt Count MPV Immature Gran % (Auto) Neut % (Auto) Lymph % (Auto) Tompkins % (Auto) Eos % (Auto) Baso % (Auto) Immature Gran # (Auto) Neut # (Auto) Lymph # (Auto) Tompkins # (Auto) Eos # (Auto) Baso # (Auto) Segmented Neutrophils Band Neutrophils Lymphocytes Monocytes Nucleated RBCs Atypical Lymphocytes Percent Retic Retic Hgb Equivalent PT 31.8 H INR 2.97 PTT (Actin FS) Fibrinogen D-Dimer, Quantitative Specimen Type Sample Site pH pCO2 pO2 HCO3 Base Excess Oxyhemoglobin ABG O2 Sat (Calculated) ABG O2 Saturation ABG Carboxyhemoglobin ABG Methemoglobin Aureliano Test A-a O2 Difference Total Hemoglobin Lactate Blood Gas Modality Vent Mode Spontaneous Rate FiO2 % Tidal Volume PEEP Sodium Potassium Chloride Carbon Dioxide Anion Gap BUN Creatinine Estimated GFR/1.73 m2 BUN/Creatinine Ratio Glucose POC Glucose Calculated Osmolality Calcium Phosphorus Magnesium Total Bilirubin Direct Bilirubin AST ALT Alkaline Phosphatase Lactate Dehydrogenase Total Protein Albumin Globulin Albumin/Globulin Ratio Plasma Lactate 6.2 H* Random Vancomycin 8.60 Hepatitis Panel Hepatitis C RNA Quant 10/12/19 10/12/19 10/12/19 11:13 12:15 12:15 WBC 22.60 H RBC 2.80 L Hgb 8.2 L Hct 26.3 L MCV 93.9 MCH 29.3 MCHC 31.2 L RDW Std Deviation 19.4 H Plt Count 72 L MPV 12.4 H Immature Gran % (Auto) 1.2 H Neut % (Auto) 74.0 Lymph % (Auto) 18.3 L Tompkins % (Auto) 6.3 Eos % (Auto) 0.0 Baso % (Auto) 0.2 Immature Gran # (Auto) 0.28 H Neut # (Auto) 16.69 H Lymph # (Auto) 4.14 H Tompkins # (Auto) 1.43 H Eos # (Auto) 0.01 Baso # (Auto) 0.05 Segmented Neutrophils 79 H Band Neutrophils 5 H Lymphocytes 7 L Monocytes 7 Nucleated RBCs 9 H Atypical Lymphocytes 2.0 Percent Retic Retic Hgb Equivalent PT INR PTT (Actin FS) Fibrinogen D-Dimer, Quantitative Specimen Type Sample Site pH pCO2 pO2 HCO3 Base Excess Oxyhemoglobin ABG O2 Sat (Calculated) ABG O2 Saturation ABG Carboxyhemoglobin ABG Methemoglobin Aureliano Test A-a O2 Difference Total Hemoglobin Lactate Blood Gas Modality Vent Mode Spontaneous Rate FiO2 % Tidal Volume PEEP Sodium 140 Potassium 6.4 H* Chloride 102 Carbon Dioxide 10 L Anion Gap 28 BUN 55 H Creatinine 6.1 H Estimated GFR/1.73 m2 12 BUN/Creatinine Ratio 9 Glucose 133 H POC Glucose 130 H Calculated Osmolality 296 Calcium 6.5 L* Phosphorus Magnesium Total Bilirubin 4.07 H Direct Bilirubin AST 2290 H ALT 473 H Alkaline Phosphatase 300 H Lactate Dehydrogenase Total Protein 6.3 Albumin 3.2 L Globulin 3.1 Albumin/Globulin Ratio 1.0 Plasma Lactate Random Vancomycin Hepatitis Panel Hepatitis C RNA Quant 10/12/19 10/12/19 10/12/19 12:15 13:05 13:05 WBC RBC Hgb Hct MCV MCH MCHC RDW Std Deviation Plt Count MPV Immature Gran % (Auto) Neut % (Auto) Lymph % (Auto) Tompkins % (Auto) Eos % (Auto) Baso % (Auto) Immature Gran # (Auto) Neut # (Auto) Lymph # (Auto) Tompkins # (Auto) Eos # (Auto) Baso # (Auto) Segmented Neutrophils Band Neutrophils Lymphocytes Monocytes Nucleated RBCs Atypical Lymphocytes Percent Retic 3.39 H Retic Hgb Equivalent 21.3 L PT INR PTT (Actin FS) Fibrinogen D-Dimer, Quantitative Specimen Type Sample Site pH pCO2 pO2 HCO3 Base Excess Oxyhemoglobin ABG O2 Sat (Calculated) ABG O2 Saturation ABG Carboxyhemoglobin ABG Methemoglobin Aureliano Test A-a O2 Difference Total Hemoglobin Lactate Blood Gas Modality Vent Mode Spontaneous Rate FiO2 % Tidal Volume PEEP Sodium Potassium Chloride Carbon Dioxide Anion Gap BUN Creatinine Estimated GFR/1.73 m2 BUN/Creatinine Ratio Glucose POC Glucose Calculated Osmolality Calcium Phosphorus Magnesium Total Bilirubin 4.23 H Direct Bilirubin 2.60 H AST ALT Alkaline Phosphatase Lactate Dehydrogenase > 2500 H Total Protein Albumin Globulin Albumin/Globulin Ratio Plasma Lactate 6.0 H* Random Vancomycin Hepatitis Panel Hepatitis C RNA Quant 10/12/19 10/12/19 13:55 15:42 WBC RBC Hgb Hct MCV MCH MCHC RDW Std Deviation Plt Count MPV Immature Gran % (Auto) Neut % (Auto) Lymph % (Auto) Tompkins % (Auto) Eos % (Auto) Baso % (Auto) Immature Gran # (Auto) Neut # (Auto) Lymph # (Auto) Tompkins # (Auto) Eos # (Auto) Baso # (Auto) Segmented Neutrophils Band Neutrophils Lymphocytes Monocytes Nucleated RBCs Atypical Lymphocytes Percent Retic Retic Hgb Equivalent PT INR PTT (Actin FS) 63.6 H Fibrinogen 101.0 L D-Dimer, Quantitative > 20.00 H Specimen Type Sample Site pH pCO2 pO2 HCO3 Base Excess Oxyhemoglobin ABG O2 Sat (Calculated) ABG O2 Saturation ABG Carboxyhemoglobin ABG Methemoglobin Aureliano Test A-a O2 Difference Total Hemoglobin Lactate Blood Gas Modality Vent Mode Spontaneous Rate FiO2 % Tidal Volume PEEP Sodium Potassium Chloride Carbon Dioxide Anion Gap BUN Creatinine Estimated GFR/1.73 m2 BUN/Creatinine Ratio Glucose POC Glucose 135 H Calculated Osmolality Calcium Phosphorus Magnesium Total Bilirubin Direct Bilirubin AST ALT Alkaline Phosphatase Lactate Dehydrogenase Total Protein Albumin Globulin Albumin/Globulin Ratio Plasma Lactate Random Vancomycin Hepatitis Panel Hepatitis C RNA Quant Assessment: Acute respiratory failure. Intubated on 10/10/19. Septic shock likely secondary to acute colitis vs. spontaneous bacterial peritonitis. Pneumonia. Sputum culture on 10/10/19 grows gram positive cocci today. Hypovolemic shock. Acute kidney injury. Transaminitis. Hypothermia. Liver cirrhosis with history of hepatitis C. Prognosis stays poor. Plan: Continue current treatment and supportive care per admitting and other teams on the case. Ventilation checked and titrated to the patients needs for clinical protocols with close monitoring. Sedation with prn morphine and prn Ativan titrated to the patients needs per clinical protocols with closely monitoring. Pressors titrated to the patients needs per clinical protocols with closely monitoring. Antibiotic (Vancomycin and Zosyn), bronchodilators and IV Solu-Cortef. Input was appreciated from Admitting MD and other teams on the case. Evaluation time in minutes: 31 minutes.
[2019-10-12] MEDS ORDERED: HUMULIN R IV SCH (19:30)
[2019-10-12] MEDS ORDERED: ALBUTEROL 0.5% INH CONC FOR HYPERKALEMIA INH SCH (19:30)
[2019-10-12] MEDS ORDERED: D50W SYRINGE IV SCH (19:30)
[2019-10-12] MEDS: D50W SYRINGE IV SCH (19:55)
[2019-10-12] MEDS: HUMULIN R IV SCH ×2 (19:56→23:45)
[2019-10-12] MEDS: ALBUTEROL 0.5% INH CONC FOR HYPERKALEMIA INH SCH (20:05)
[2019-10-12 20:07] LABS: BASO# 0.07 X1000 (0.0-0.2); BASO% 0.3 % (0.0-0.8); EOS# 0.01 X1000 (0.0-0.7); HEMATOCRIT 25.2 % (42.0-52.0); HEMOGLOBIN 7.8 g/dL (14.0-18.0); IMM GRAN# 0.41 X1000 (0.0-0.04); IMM GRAN% 1.8 % (0.0-0.5); LYMPH# 4.69 X1000 (1.2-3.4); LYMPH% 20.1 % (20.5-51.1); MCH 29.3 PG (27-31); MCV 94.7 FL (81-99); MONO# 1.57 X1000 (0.11-0.59); MONO% 6.7 % (1.7-9.3); MPV 11.3 FL (7.4-10.4); NEUT# 16.56 X1000 (1.4-6.5); NEUT% 71.1 % (42.2-75.2); PLT 73 X1000 (130-400); RBC 2.66 XMIL (4.7-6.1); RDW 19.7 % (11.5-14.5); WBC 23.31 X1000 (4.8-10.8)
--- NOTE | 2019-10-12 20:36 | HEMO/ONC CONSULTATION ---
DATE: 10/12/2019 REASON FOR CONSULTATION: Coagulopathy, thrombocytopenia, and sepsis. HISTORY OF PRESENT ILLNESS: Mr. Moralez is a 59-year-old male who had a recent episode of shortness of breath that started on Friday night. The patient drove himself to the ER where he was grunting upon initial presentation due to shortness of breath. He had some dizziness, lightheadedness, and chronic swelling to bilateral lower extremities. Once the patient arrived to the ER, his condition deteriorated. The patient became hypothermic. Blood pressure became hypotensive. He was hypoglycemic. He was anemic with a hemoglobin of 5.6. Hemoccult stool was positive. He was given a blood transfusion. He was noted to have mild leukocytosis, and acute renal failure with elevated liver function test. Shortly, after arrival, his oxygen saturations began to drop. The patient was ultimately intubated and transferred to the ICU at [facility]. The next day sedation was held. Propofol was stopped, however, Ativan and morphine was continued for the patient. The patient had not woken up since the propofol was held. PAST MEDICAL HISTORY: 1. History of liver cirrhosis. 2. Hepatitis C. 3. Gout. 4. Hypertension. 5. Psoriasis. 6. Chronic kidney disease. 7. Nicotine dependence. 8. Bilateral lower extremity edema. PAST SURGICAL HISTORY: 1. I and D of sternoclavicular joint abscess secondary to MRSA in 2017. 2. Foot surgery. SOCIAL HISTORY: The patient smokes 1 pack per day. His family denies any alcohol or drug use. ALLERGIES: No known drug allergies. HOME MEDICATIONS: 1. Albuterol. 2. Allopurinol. 3. Zyrtec. 4. Clonidine. 5. Flexeril. 6. Pepcid. 7. Gabapentin. 8. Lisinopril/hydrochlorothiazide. 9. Robaxin. 10. Percocet. 11. Prednisone. REVIEW OF SYSTEMS: Unable to be obtain due to patient's unresponsive status. PHYSICAL EXAMINATION: Vital Signs: Temperature 97.2 degrees, pulse rate 113, respiratory rate 19, blood pressure 116/72, O2 saturation 93% on mechanical ventilation at 100% oxygen flow rate with 0/10 pain. Patient is unarousable. General: The patient is sedated and unarousable. The patient is nonresponsive. HEENT: Sclerae is anicteric. Pupils sluggish to light. Conjunctiva pale. Oral mucosa dry due to ET tube. Cardiovascular: Normal S1, S2. Heart rate and rhythm regular and tachycardic. Respiratory: Lungs with clear upper ragland and diminished throughout the bases. The patient on mechanical ventilation. Abdomen: Somewhat firm and distended. Hypoactive bowel sounds. Extremities: 2+ pitting edema noted to bilateral lower extremities. Swelling worse in his left leg than his right. Neurological: Patient moves slightly to painful stimuli. Otherwise, he is non responsive. LABORATORY: WBCs 22.60, hemoglobin 8.2, hematocrit 26.3, platelet count 72,000, retic count 21, haptoglobin less than 10, PT 31.8, INR 2.97, and fibrinogen 101. D-dimer greater than 20. Potassium 6.4. Her creatinine 6.1, BUN 55, calcium 6.5, bilirubin 4.23, AST 2290, ALT 473, and alkaline phosphatase 300. LDH greater than 2500. Plasma lactate 6. ASSESSMENT AND PLAN: 1. Septic shock. Continue resuscitation measures per medical management and ICU protocol. 2. Anemia. Continue to support with transfusions. 3. Thrombocytopenia. This is multifactorial. It could be sepsis. It could be DIC. We have run a DIC profile and are evaluating that. It could also be liver failure. We have discussed with Dr. Cowan to use FFP for any bleeding. We have also suggested IV vitamin K daily for 3 days. 4. Multiple organ failure. Prognosis is poor. The patient is showing multiple organ failure at this time, as it is not positive that he has not woken since being off propofol. We will continue to follow along. Dictated by JEAN MARIE Almanzar for Freddie Galvan MD cc: Freddie Galvan MD [facility]
--- NOTE | 2019-10-12 20:36 | PROGRESS NOTE ---
DATE: 10/12/2019 SUBJECTIVE: The patient remains unresponsive on the ventilator. He is currently on a Alec- Synephrine drip and he is currently on the maximum dosage of Levophed. He remains on full ventilatory support. OBJECTIVE: Vital Signs: T-max 97.2 degrees, blood pressure 124/74, heart rate 145, respirations 18, O2 saturation 95% on mechanical ventilator with an FiO2 of 100%. Intake 5.9 L, out 20 mL. General: This is a chronically ill-appearing male currently unresponsive on the ventilator. HEENT: The patient has a bloody tracheal aspirate and dried blood around his mouth. Heart: S1, S2 normal. Tachycardic. Lungs: Coarse breath sounds bilaterally with crackles. Abdomen: Hypoactive bowel sounds. Firm, distended. Extremities: 1+ edema bilaterally. Neuro: The patient is unresponsive on the ventilator. LABS: White blood cell count 22, hemoglobin 8.2, hematocrit 26, platelets 72,000. Sodium 140, potassium 6.4, chloride 102, CO2 10, BUN 55, creatinine 6.1, anion gap of 28, glucose 133, calcium 6.5, bilirubin 4.4, AST 2290, ALT 473, alkaline phosphatase 300, albumin 3.2, lactate 6. ABG pH of 7.1, pCO2 46, PO2 51, bicarb 15. INR 2.9, PT 31. ASSESSMENT AND PLAN: 1. Acute hypercapnic and hypoxemic respiratory failure. Multifactorial. The patient is being treated for pneumonia as well as pulmonary edema. The patient continues to require full ventilatory support. He is now on FiO2 of 100% with a PEEP of 8. Ventilatory management as directed by the toll patrolman. 2. Septic shock. Will continue with broad-spectrum antibiotics and pressor support. The patient is currently on Levophed and Alec-Synephrine for blood pressure support. 3. Bilateral lobe pneumonia. Continue with antibiotic therapy and bronchodilator therapy and ventilatory support. 4. Volume overload. The patient is scheduled for Vas catheter placement and then initiation of SLED today. 5. Acute kidney injury. Multifactorial. This will be addressed during SLED today. 6. Global encephalopathy. The patient is unresponsive. The ammonia level is >200 and the patient has multiorgan failure. Will continue to treat the underlying medical conditions and order an EEG and Neurology consult. 7. Coagulopathy. Unsure whether this is due to the patient's severe liver disease or disseminated intravascular coagulation. Dr. Galvan has been consulted. Will start the patient on vitamin K and monitor closely. 8. Possible intraabdominal bleeding. The patient's hemoglobin and hematocrit are stable today. The patient did require several units of blood yesterday. We will continue to monitor closely. Will switch the patient to a Protonix drip and await further recommendations from GI. 9. Decompensated liver failure. Aware. 10. Possible shock liver. Continue with supportive care. 11. Hepatitis C. Aware. 12. Status post paracentesis secondary to ascites. Aware. 13. Hyperkalemia. Will treat medically and await the initiation of SLED today. 14. Anion gap metabolic acidosis. The patient is currently on a bicarb drip. He is scheduled to undergo SLED today. 15. Colitis. Continue with antibiotics. 16. Thrombocytopenia likely secondary to the patient's liver cirrhosis vs DIC. We will continue to monitor closely and transfuse as necessary. 17. Disposition. The patient is critically ill with a high risk of mortality. The patient has multiorgan failure. He is a full code. I had a discussion with the patient's daughter and went over all of the patient's current diagnosis and overall poor prognosis. Will also consult with palliative care for assistance with goals of care. cc: Stephany Cowan MD MTDD
[2019-10-12 20:39] LABS: BANDS 3 % (0-1); LYMPHS 11 % (21-51); MONO 3 % (1-9); NRBC 18 % (0-0); SEGS 83 % (42-75); TARGET CELLS 1+
--- NOTE | 2019-10-12 20:43 | GASTROENTEROLOGY PROGRESS NOTE ---
DATE: 10/12/2019 SUBJECTIVE: The patient remains intubated on mechanical ventilation. He has NG tube to suction with bloody drainage noted. He has a ostomy bag over the previous paracentesis site with some bloody drainage noted. He also has bloody secretions coming from his ET tube. I spoke with his family member who is at the bedside. Patient is currently unresponsive. OBJECTIVE: Vital Signs: Temperature 97.2 degrees, pulse 113, respirations 19, blood pressure 116/72. General: The patient is nonresponsive. HEENT: He is intubated on mechanical ventilation. Respiratory: With rhonchi noted. Abdomen: With ostomy bag over the paracentesis site with bloody drainage noted but per intake and output report drainage has decreased since yesterday. LABORATORY: Hematology WBC 22.60, hemoglobin 8.2, hematocrit 26.3, MCV 93.9, platelet 72,000. Coagulation. Pro time 31.8, INR 2.97, PTT 63.6. Chemistry, sodium 137, potassium 5.6, chloride 99, CO2 15, BUN 51, creatinine 5.5, glucose 115, calcium 7.0, phosphorus 10.0, magnesium 1.7, total bilirubin 3.62, AST 2859, ALT 465, alkaline phosphatase 283. Chest x-ray today showed dense infiltrates throughout both lungs. ASSESSMENT AND PLAN: 1. Sepsis shock. Continue supportive care. He is on vasopressors. 2. Acute respiratory failure on mechanical ventilation. 3. Acute renal failure. Patient has been seen by nephrology and plans to start SLED dialysis when Vas-Cath can be placed. 4. Acute and chronic liver disease with elevated liver function tests. Patient continues to be critical. I have spoken with the patient's family. Will continue further management, continue recommendations from Nephrology, Pulmonology and Neurology has also seen the patient. Further plans to be made according to his progress. I have discussed this case with Dr. Wheeler. Dictated by JEAN MARIE Chairez for Geronimo Wheeler MD cc: JEAN MARIE Smart MD
--- NOTE | 2019-10-12 20:44 | OPERATIVE NOTE ---
PROCEDURE DATE: 10/12/2019 PREOPERATIVE DIAGNOSIS: Acute renal failure requiring hemodialysis. POSTOPERATIVE DIAGNOSIS: Acute renal failure requiring hemodialysis. PRINCIPAL PROCEDURE: Ultrasound-guided right common femoral vein Vas-Cath. SURGEON: Scarlett Parsons MD. ANESTHESIA: IV sedation and local. ESTIMATED BLOOD LOSS: 50 mL. DRAINS: None. INDICATIONS: Mr. Vaughn Moralez is a 59-year-old black male who is critically ill in our ICU on the ventilator, 100% FiO2. He is edematous from resuscitation. He has a left groin central venous line. He has acute renal failure and needs dialysis and we are asked to place access. DESCRIPTION OF PROCEDURE: The patient was sedated on the ventilator. We prepped and draped his right groin. Local anesthetic was used. We used ultrasound to identify the right common femoral vein. Using ultrasound guidance we directed an 18-gauge needle in the right groin to the right common femoral vein. Through the needle we placed a guidewire. It passed easily up into the superior vena cava. The needle was removed. We made a saman in the skin at the exit of the guidewire. Sequential dilators were placed over the guidewire, and then a 20 cm in length Vas- Cath was placed over the guidewire into the femoral vein, iliac vein and up into the inferior vena cava. The patient does have high venous pressures. We checked the placement again with ultrasound and felt that the catheter was in good placement. It was functioning well and we flushed it with hep saline. It was secured to the skin with 2-0 nylon stitches. Dressings were applied. He tolerated the procedure well. I spoke with the family after the procedure. I think dialysis is to begin tomorrow. cc: Scarlett Parsons MD
[2019-10-12 20:47] LABS: ALBUMIN 2.8 g/dL (3.5-5.0); CALCIUM 6.3 mg/dL (8.8-10.2); CREATININE 6.3 mg/dL (0.7-1.2); MAGNESIUM 1.6 mg/dL (1.5-2.7); PHOSPHORUS 10.9 mg/dL (2.7-4.5); POTASSIUM 6.1 mmol/L (3.5-5.1); TOTAL BILIRUBIN 3.92 mg/dL (0.20-1.00); TOTAL PROTEIN 5.7 g/dL (6.3-8.3)
[2019-10-12 23:58] LABS: BASO# 0.05 X1000 (0.0-0.2); BASO% 0.3 % (0.0-0.8); HEMATOCRIT 25.1 % (42.0-52.0); HEMOGLOBIN 7.6 g/dL (14.0-18.0); IMM GRAN% 2.6 % (0.0-0.5); LYMPH# 4.92 X1000 (1.2-3.4); LYMPH% 25.5 % (20.5-51.1); MCH 28.9 PG (27-31); MCHC 30.3 g/dL (33-37); MCV 95.4 FL (81-99); MONO# 0.25 X1000 (0.11-0.59); MONO% 1.3 % (1.7-9.3); MPV 11.6 FL (7.4-10.4); NEUT# 13.57 X1000 (1.4-6.5); NEUT% 70.3 % (42.2-75.2); PLT 70 X1000 (130-400); RBC 2.63 XMIL (4.7-6.1); RDW 19.7 % (11.5-14.5); WBC 19.29 X1000 (4.8-10.8)
[2019-10-13] MEDS: D50W SYRINGE IV SCH (00:03)
[2019-10-13 00:29] LABS: LYMPHS 27 % (21-51); NRBC 13 % (0-0); SEGS 73 % (42-75)
[2019-10-13 00:30] LABS: ALB/GLOB RATIO 1.1; ALBUMIN 2.9 g/dL (3.5-5.0); CREATININE 6.3 mg/dL (0.7-1.2); POTASSIUM 5.3 mmol/L (3.5-5.1); TOTAL BILIRUBIN 3.91 mg/dL (0.20-1.00); TOTAL PROTEIN 5.6 g/dL (6.3-8.3)
[2019-10-13] MEDS: ALBUTEROL 0.5% INH CONC FOR HYPERKALEMIA INH SCH (01:00)
[2019-10-13] MEDS: NEO-SYNEPHRINE 50 MG in NS 250 ML IV SCH ×2 (02:14→06:29)
[2019-10-13] MEDS: ZOSYN 2.25 GM in NS 50 ML IV SCH ×3 (02:19→18:16)
[2019-10-13] MEDS: LEVOPHED 8 MG in D5 1/2 NS 250 ML IV SCH ×2 (02:19→06:30)
[2019-10-13] MEDS: XOPENEX NEB INH SCH ×6 (03:33→23:45)
[2019-10-13] MEDS: NS NEB INH SCH (03:34)
[2019-10-13] MEDS: ATROVENT NEB INH SCH ×6 (03:34→23:45)
[2019-10-13 04:40] LABS: ALLEN TEST YES; BE -6.5 mmoll (-3.0-3.0); BLOOD TYPE ARTERIAL; HCO3-(ACT) 19.8 mmoll (20.0-26.0); METHB 1.4 % (0.0-1.5); O2(CT) 10.1 mL/dL (15.0-23.0); O2HB 93.7 % (95.0-99.0); PO2(98.6) 73 mmHg (60-100); SAMPLE BLOOD; SAO2 97.1 % (95.0-100.0); SRATE 18 BPM; THB 7.6 g/dL (11.5-17.4); TVOL 500 mL
[2019-10-13 04:45] LABS: PCO2(98.6) 72 mmHg (35-45); pH(98.6) 7.11 (7.35-7.45)
[2019-10-13 04:46] LABS: MODALITY VENTILATOR
[2019-10-13] MEDS: SOLU-CORTEF IV SCH ×4 (05:25→22:05)
[2019-10-13 06:04] LABS: INR 3.22; PROTIME 33.9 Seconds (11.0-16.0)
[2019-10-13 06:16] LABS: ALB/GLOB RATIO 1.1; ALBUMIN 2.8 g/dL (3.5-5.0); CREATININE 6.7 mg/dL (0.7-1.2); POTASSIUM 5.5 mmol/L (3.5-5.1); TOTAL BILIRUBIN 4.45 mg/dL (0.20-1.00); TOTAL PROTEIN 5.3 g/dL (6.3-8.3)
[2019-10-13 06:18] LABS: CALCIUM 6.1 mg/dL (8.8-10.2)
[2019-10-13] MEDS ORDERED: NS 2,000 ML MISC PRN (06:27)
[2019-10-13] MEDS ORDERED: VITAMIN K 10 MG in NS 50 ML IV SCH (07:00)
[2019-10-13] MEDS: VITAMIN K 10 MG in NS 50 ML IV SCH (07:13)
--- NOTE | 2019-10-13 07:34 | Diag Imaging Result Doc PS360 ---
EXAM: CHEST-PORTABLE HISTORY: dyspnea TECHNIQUE: Single view COMPARISON: 10/12/2019 FINDINGS: No change in the endotracheal tube or nasogastric tube. There are dense bilateral infiltrates similar to the prior exam. The heart remains enlarged. Questionable tiny effusions. IMPRESSION: No interval improvement Electronically signed by Kiran Lizarraga 10/13/2019 7:32 AM
[2019-10-13] MEDS: PROTONIX 80 MG in NS 80 ML IV SCH (08:34)
[2019-10-13] MEDS: DULCOLAX PR SCH ×2 (08:34→22:06)
--- NOTE | 2019-10-13 08:43 | NEPHROLOGY PROGRESS NOTE ---
DATE: 10/13/2019 DATE AND TIME SEEN: On 10/13/2019 at 0705 hours. SUBJECTIVE: Mr. Moralez is currently intubated. He is unresponsive. No sedation since the . OBJECTIVE: Most recent vital signs, temperature 99.8 degrees, blood pressure 107/60, heart rate is 93, respirations are 20 to 22, ventilator dependent. He is on 90% FiO2. Last recorded saturation 95%. He has had 5520 input and he has had 450 output and is currently in a 17 liter positive fluid balance. LABS: Sodium is 137, potassium is 5.5, chloride 97, CO2 of 22, BUN 56, creatinine 6.7, glucose 64. His anion gap is 18, calcium 6.1, phosphorus 10.9, albumin 2.8, with a corrected calcium of 7.3. Previous hemoglobin 7.6. Sputum culture shows gram positive cocci. PHYSICAL EXAMINATION: General: This is a 59-year-old male resting quietly in bed, ventilator dependent. No acute distress. Appears chronically ill. HEENT: Normocephalic. Atraumatic. Conjunctiva is jaundiced with conjunctival edema. Pupils are sluggish with lipomas to both eyes. Neck: Supple. Trachea is midline. Cardiovascular: Regular rate and rhythm. He is tachycardic on the monitor. He has a gallop that is present. No murmur appreciated. Lungs: Patient has a high-pitched rhonchi with bilateral crackles. Abdomen: Firm. Hypoactive bowel sounds. NG tube to low intermittent suction. Coffee-ground material noted to tubing. Genitourinary: Not inspected. Shen is in place. Low urine output. Scrotal edema remains. Extremities: Continue with generalized pitting edema of 4+ up into the mid hip region. Again, patient is 17 liters positive. Integumentary: Patient has a left groin central line, now has a right femoral Vas-Cath placed yesterday evening. Neurological: Unresponsive to tactile stimuli. Ventilator support. ASSESSMENT AND PLAN: 1. Acute on chronic kidney disease, more than likely ischemic acute tubular necrosis related to septic shock. The patient has diminished urinary output. BUN and creatinine continue to elevate. Vas-Cath is now in place. We will plan for sustained low- efficiency dialysis (SLED) today. We will place him on a 3-potassium bath. He is to dialyze for 8 hours. We will attempt to pull 4 to 6 liters of ultrafiltration. We will initially start with 0.5 liter per hour, monitoring his blood pressure secondary to remaining on pressor support of Levophed and Alec-Synephrine. 2. Shock. The patient remains on Alec-Synephrine and Levophed. Vasopressin is on hold at this time, available if needed during dialysis. 3. Electrolytes and acid-base balance with correction on dialysis. Calcium does remain low. He received calcium gluconate yesterday. We will place him on a 2.5 calcium bath during dialysis. He is currently receiving sodium bicarbonate. 4. Anemia. Hemoglobin is at 7.6. Patient has received multiple blood products yesterday and the day before. 5. Septic shock. The patient remains on vancomycin and Zosyn. We will change his vancomycin to after dialysis. These are renally dosed. 6. Sputum with gram-positive cocci. Again, the patient is on renal dosed vancomycin. I would like to thank you for allowing us to follow with this patient. Dictated by JEAN MARIE Pearce for Magdiel Ramirez MD Face to face encounter, data reviewed, discussed with Cheyanne Mejía on 10/13/19. I agree with the above assessment and plan of care. cc: JEAN MARIE Pearce MD [facility]
--- NOTE | 2019-10-13 09:11 | EKG Report ---
Test Performed on : 10/12/2019 4:23:48 PM Test Reason : ICU. NO EKG ORDER FOR MUSE Blood Pressure : / mmHG Vent. Rate : 135 BPM Atrial Rate : 135 BPM P-R Int : 104 ms QRS Dur : 062 ms QT Int : 346 ms P-R-T Axes : 014 109 -45 degrees QTc Int : 519 ms Sinus tachycardia. with short [place] Rightward axis Low voltage QRS ST elevation, consider inferior injury or acute infarct ACUTE ME / STEMI Consider right ventricular involvement in acute inferior infarct Abnormal ECG When compared with ECG of 11-OCT-2019 09:54, (Unconfirmed) QRS axis shifted right ST now depressed in Lateral leads Inverted T waves have replaced nonspecific T wave abnormality in Inferior leads Confirmed by Jac AMARAL, MElmo Tsai ([id number]) on 10/13/2019 12:15:32 PM
--- NOTE | 2019-10-13 09:12 | EKG Report ---
Test Performed on : 10/12/2019 4:26:35 PM Test Reason : ICU. NO EKG ORDER FOR MUSE Blood Pressure : / mmHG Vent. Rate : 122 BPM Atrial Rate : 000 BPM P-R Int : 000 ms QRS Dur : 060 ms QT Int : 354 ms P-R-T Axes : 000 109 -42 degrees QTc Int : 504 ms Atrial fibrillation. with rapid ventricular response. Rightward axis Low voltage QRS ST elevation, consider inferior injury or acute infarct ACUTE PR / STEMI Consider right ventricular involvement in acute inferior infarct Abnormal ECG When compared with ECG of 12-OCT-2019 16:24, (Unconfirmed) Atrial fibrillation. has replaced Sinus rhythm. Vent. rate has increased BY 40 BPM Confirmed by Jac AMARAL, Kacy Tsai ([id number]) on 10/13/2019 12:15:43 PM
--- NOTE | 2019-10-13 09:12 | EKG Report ---
Test Performed on : 10/12/2019 4:24:12 PM Test Reason : ICU. NO EKG ORDER FOR MUSE Blood Pressure : / mmHG Vent. Rate : 082 BPM Atrial Rate : 082 BPM P-R Int : 072 ms QRS Dur : 058 ms QT Int : 376 ms P-R-T Axes : 000 112 -29 degrees QTc Int : 439 ms Sinus rhythm. with short MO Low voltage QRS Left posterior fascicular block ST elevation, consider anterior injury or acute infarct ACUTE TX / STEMI Abnormal ECG When compared with ECG of 12-OCT-2019 16:23, (Unconfirmed) Vent. rate has decreased BY 53 BPM Confirmed by Kacy Nathan MD ([id number]) on 10/13/2019 12:15:39 PM
--- NOTE | 2019-10-13 09:15 | EKG Report ---
Test Performed on : 10/13/2019 07:47:42 AM Test Reason : TACHYCARDIA Blood Pressure : / mmHG Vent. Rate : 139 BPM Atrial Rate : 139 BPM P-R Int : 104 ms QRS Dur : 064 ms QT Int : 336 ms P-R-T Axes : 000 118 -33 degrees QTc Int : 511 ms Sinus tachycardia. with short LA Low voltage QRS Left posterior fascicular block ST & T wave abnormality, consider inferior ischemia Abnormal ECG When compared with ECG of 12-OCT-2019 16:26, (Unconfirmed) Sinus rhythm. has replaced Atrial fibrillation. Confirmed by Jac AMARAL, MElmo Tsai ([id number]) on 10/13/2019 12:16:14 PM
[2019-10-13] MEDS: MYCAMINE 100 MG in NS 100 ML IV SCH (10:09)
[2019-10-13] MEDS: NEO-SYNEPHRINE 100 MG in NS 250 ML IV SCH ×3 (10:11→22:24)
--- NOTE | 2019-10-13 10:15 | INFECTIOUS DISEASE CONSULT REP ---
DATE: 10/13/2019 CONCLUSION: The patient is critically ill. He has pneumonia and peritonitis and hepatitis C. RECOMMENDATIONS: I agree with treating the patient with vancomycin and Zosyn. Empirically, I have added micafungin today. DISCUSSION: The patient is unable provide a history; no family member is present. He was admitted to the hospital with shortness of breath. The patient also had some diarrhea and maroon- colored stools. His abdomen also was distended. He no longer has diarrhea. LABORATORY STUDIES: Show a CBC with a white count of 19,290, hemoglobin 7.6, platelet count 70,000. Blood gases show a pH of 7.11, a PO2 of 73, and a pCO2 of 72. Creatinine is 6.7. GFR is 10. AST is 1496. CK is 11,784. Urinalysis showed no white cells or bacteria. Aspiration of ascites from the patient's abdomen showed a white blood cell count of 1592. Blood and urine cultures are negative. IMAGING STUDIES: Chest x-ray shows bilateral infiltrates. Sputum is growing oxacillin sensitive Staph aureus. PAST MEDICAL HISTORY: Positive for: 1. Hepatitis C. 2. Cirrhosis of the liver. 3. Gout. 4. Hypertension. 5. Psoriasis. 6. Chronic kidney disease. 7. Cigarette smoking. 8. Chronic bilateral leg edema. PAST SURGICAL HISTORY: Positive for: 1. The patient has a previous surgery for incision and drainage of a sternoclavicular joint abscess due to methicillin-resistant Staphylococcus aureus. 2. The patient has also had foot surgery. SOCIAL HISTORY: The patient smokes cigarettes, but he does not drink alcoholic beverages or use illicit drugs. ALLERGIES: His chart lists no known drug allergies. MEDICATIONS TAKEN AT HOME: Ventolin inhaler, allopurinol, clonidine, Flexeril, Pepcid, gabapentin, lisinopril/hydrochlorothiazide, Robaxin, oxycodone and prednisone. PHYSICAL EXAMINATION: Vital Signs: Temperature is 98.4 degrees, pulse 137, respirations 21, blood pressure is 110/56. The patient is 5 feet 7 inches tall, weighs 208 pounds. General: The patient is obese and he appears chronically ill. Head/eyes/ears/nose/throat: The patient has an orogastric and an orotracheal tube in place. No drainage noted from the nose or ears. Neck: No meningismus. Lungs: Bilateral rhonchi. Cardiovascular: Heart rate is rapid and regular. According to the nurses, occasionally the patient goes into atrial fibrillation. Abdomen: Soft, but it does protrude. It does have an ostomy bag on the left side of the abdomen where ascites is draining. Extremities: The patient has bilateral leg edema with peau d'orange skin. Also many of the areas are scaling. Neurologic: The patient is obtunded. He did not respond to verbal stimuli. There is no tremor. Thank you for the consult. cc: Clemente Vivas MD MTDD
--- NOTE | 2019-10-13 10:34 | PROVIDER PROGRESS NOTE ---
Progress Note Dr. Robles Progress Note/Pulmonary and or critical care We appreciated progress of care, Complications, change in diagnosis, and instructions to patient. Subjective: We note the level of consciousness, bed (chair) position, family presence (if any), level of lethargy, feeling of symptoms, and changes from baseline condition/symptom. The patient is intubated. He remains unresponsive to painful stimuli. There is pink frothy drainage noted in the hose attaching to the ET tube and some pink f oamy drainage in his mouse. He has been on SLEDD per Dr. Ramirez for 1.5 hours with 6.5 hours remained. He is on Alec and Levophed drips. Patients mother at the bedside. Objective: Vital Signs: We reviewed EMR current values for Pulse rate, Blood pressure, Pulse rate, respiratory rate and Pulse oximetry. Also noted other values and trends if present (e.g. I/O, CVP). 98.4 (Highest temperature 99.8 in last 24 hours), MS 137, RR 21, BP 110/56 and SaO2 96 on AC 18, 100%, 500, 8. I/O 5070 ml Physical Examination: General: Lying in bed with no acute distress noted. Leona frothy drainage noted in the hose attaching to the ETT with pink foamy drainage in the mouth noted. HEENT: Normocephalic. Atraumatic. Mucus pink and moist. ET tube in place. Sluggish pupils. Chest: Mechanically ventilated. Symmetrical excursion. Coarse breathing sounds throughout with inspiratory and expiratory crackles bilaterally. CVS: Tachycardia. S1 and S2 appreciated. Abdomen: Soft. Non-distended. Edema. No bowel sounds noted in all 4 quadrants. Extremities: BLE chronic lymphedema with severe pitting edema 4+. BUE pitting edema 1-2+. Neuro: Unresponsive to painful stimuli. Labs and Radiology: Reviewed available labs and radiology values available at time of EMR review. Laboratory Results 10/11/19 10/11/19 10/12/19 11:45 11:45 11:13 WBC RBC Hgb Hct MCV MCH MCHC RDW Std Deviation Plt Count MPV Immature Gran % (Auto) Neut % (Auto) Lymph % (Auto) [place] % (Auto) Eos % (Auto) Baso % (Auto) Immature Gran # (Auto) Neut # (Auto) Lymph # (Auto) [place] # (Auto) Eos # (Auto) Baso # (Auto) Corrected WBC (Man) Segmented Neutrophils Band Neutrophils Lymphocytes Monocytes Nucleated RBCs Atypical Lymphocytes Target Cells Percent Retic Retic Hgb Equivalent Haptoglobin PT INR PTT (Actin FS) Fibrinogen D-Dimer, Quantitative Specimen Type Sample Site pH pCO2 pO2 HCO3 Base Excess Oxyhemoglobin ABG O2 Sat (Calculated) ABG O2 Saturation ABG Carboxyhemoglobin ABG Methemoglobin Aureliano Test A-a O2 Difference Total Hemoglobin Lactate Blood Gas Modality Vent Mode Spontaneous Rate FiO2 % Tidal Volume PEEP Sodium Potassium Chloride Carbon Dioxide Anion Gap BUN Creatinine Estimated GFR/1.73 m2 BUN/Creatinine Ratio Glucose POC Glucose 130 H Calculated Osmolality Calcium Phosphorus Magnesium Total Bilirubin Direct Bilirubin AST ALT Alkaline Phosphatase Lactate Dehydrogenase Total Protein Albumin Globulin Albumin/Globulin Ratio Plasma Lactate Immunoglobulins G,A,M Hepatitis Panel SEE COMMENTS Hepatitis C RNA Quant SEE COMMENTS 10/12/19 10/12/19 10/12/19 12:15 12:15 12:15 WBC 22.60 H RBC 2.80 L Hgb 8.2 L Hct 26.3 L MCV 93.9 MCH 29.3 MCHC 31.2 L RDW Std Deviation 19.4 H Plt Count 72 L MPV 12.4 H Immature Gran % (Auto) 1.2 H Neut % (Auto) 74.0 Lymph % (Auto) 18.3 L [place] % (Auto) 6.3 Eos % (Auto) 0.0 Baso % (Auto) 0.2 Immature Gran # (Auto) 0.28 H Neut # (Auto) 16.69 H Lymph # (Auto) 4.14 H [place] # (Auto) 1.43 H Eos # (Auto) 0.01 Baso # (Auto) 0.05 Corrected WBC (Man) Segmented Neutrophils 79 H Band Neutrophils 5 H Lymphocytes 7 L Monocytes 7 Nucleated RBCs 9 H Atypical Lymphocytes 2.0 Target Cells Percent Retic 3.39 H Retic Hgb Equivalent 21.3 L Haptoglobin PT INR PTT (Actin FS) Fibrinogen D-Dimer, Quantitative Specimen Type Sample Site pH pCO2 pO2 HCO3 Base Excess Oxyhemoglobin ABG O2 Sat (Calculated) ABG O2 Saturation ABG Carboxyhemoglobin ABG Methemoglobin Aureliano Test A-a O2 Difference Total Hemoglobin Lactate Blood Gas Modality Vent Mode Spontaneous Rate FiO2 % Tidal Volume PEEP Sodium 140 Potassium 6.4 H* Chloride 102 Carbon Dioxide 10 L Anion Gap 28 BUN 55 H Creatinine 6.1 H Estimated GFR/1.73 m2 12 BUN/Creatinine Ratio 9 Glucose 133 H POC Glucose Calculated Osmolality 296 Calcium 6.5 L* Phosphorus Magnesium Total Bilirubin 4.07 H Direct Bilirubin AST 2290 H ALT 473 H Alkaline Phosphatase 300 H Lactate Dehydrogenase Total Protein 6.3 Albumin 3.2 L Globulin 3.1 Albumin/Globulin Ratio 1.0 Plasma Lactate Immunoglobulins G,A,M Hepatitis Panel Hepatitis C RNA Quant 10/12/19 10/12/19 10/12/19 13:05 13:05 13:05 WBC RBC Hgb Hct MCV MCH MCHC RDW Std Deviation Plt Count MPV Immature Gran % (Auto) Neut % (Auto) Lymph % (Auto) [place] % (Auto) Eos % (Auto) Baso % (Auto) Immature Gran # (Auto) Neut # (Auto) Lymph # (Auto) [place] # (Auto) Eos # (Auto) Baso # (Auto) Corrected WBC (Man) Segmented Neutrophils Band Neutrophils Lymphocytes Monocytes Nucleated RBCs Atypical Lymphocytes Target Cells Percent Retic Retic Hgb Equivalent Haptoglobin SEE COMMENTS PT INR PTT (Actin FS) Fibrinogen D-Dimer, Quantitative Specimen Type Sample Site pH pCO2 pO2 HCO3 Base Excess Oxyhemoglobin ABG O2 Sat (Calculated) ABG O2 Saturation ABG Carboxyhemoglobin ABG Methemoglobin Aureliano Test A-a O2 Difference Total Hemoglobin Lactate Blood Gas Modality Vent Mode Spontaneous Rate FiO2 % Tidal Volume PEEP Sodium Potassium Chloride Carbon Dioxide Anion Gap BUN Creatinine Estimated GFR/1.73 m2 BUN/Creatinine Ratio Glucose POC Glucose Calculated Osmolality Calcium Phosphorus Magnesium Total Bilirubin 4.23 H Direct Bilirubin 2.60 H AST ALT Alkaline Phosphatase Lactate Dehydrogenase > 2500 H Total Protein Albumin Globulin Albumin/Globulin Ratio Plasma Lactate 6.0 H* Immunoglobulins G,A,M Hepatitis Panel Hepatitis C RNA Quant 10/12/19 10/12/19 10/12/19 13:55 15:42 19:50 WBC RBC Hgb Hct MCV MCH MCHC RDW Std Deviation Plt Count MPV Immature Gran % (Auto) Neut % (Auto) Lymph % (Auto) [place] % (Auto) Eos % (Auto) Baso % (Auto) Immature Gran # (Auto) Neut # (Auto) Lymph # (Auto) [place] # (Auto) Eos # (Auto) Baso # (Auto) Corrected WBC (Man) Segmented Neutrophils Band Neutrophils Lymphocytes Monocytes Nucleated RBCs Atypical Lymphocytes Target Cells Percent Retic Retic Hgb Equivalent Haptoglobin PT INR PTT (Actin FS) 63.6 H Fibrinogen 101.0 L D-Dimer, Quantitative > 20.00 H Specimen Type Sample Site pH pCO2 pO2 HCO3 Base Excess Oxyhemoglobin ABG O2 Sat (Calculated) ABG O2 Saturation ABG Carboxyhemoglobin ABG Methemoglobin Aureliano Test A-a O2 Difference Total Hemoglobin Lactate Blood Gas Modality Vent Mode Spontaneous Rate FiO2 % Tidal Volume PEEP Sodium 136 Potassium 6.1 H* Chloride 100 Carbon Dioxide 17 L Anion Gap 19 BUN 54 H Creatinine 6.3 H Estimated GFR/1.73 m2 11 BUN/Creatinine Ratio 9 Glucose 103 POC Glucose 135 H Calculated Osmolality 287 Calcium 6.3 L* Phosphorus 10.9 H Magnesium 1.6 Total Bilirubin 3.92 H Direct Bilirubin AST 1850 H ALT 407 H Alkaline Phosphatase 262 H Lactate Dehydrogenase Total Protein 5.7 L Albumin 2.8 L Globulin 2.9 Albumin/Globulin Ratio 1.0 Plasma Lactate Immunoglobulins G,A,M Hepatitis Panel Hepatitis C RNA Quant 10/12/19 10/12/19 10/12/19 19:50 19:50 23:45 WBC 23.31 H 19.29 H RBC 2.66 L 2.63 L Hgb 7.8 L 7.6 L Hct 25.2 L 25.1 L MCV 94.7 95.4 MCH 29.3 28.9 MCHC 31.0 L 30.3 L RDW Std Deviation 19.7 H 19.7 H Plt Count 73 L 70 L MPV 11.3 H 11.6 H Immature Gran % (Auto) 1.8 H 2.6 H Neut % (Auto) 71.1 70.3 Lymph % (Auto) 20.1 L 25.5 [place]on % (Auto) 6.7 1.3 L Eos % (Auto) 0.0 0.0 Baso % (Auto) 0.3 0.3 Immature Gran # (Auto) 0.41 H 0.50 H Neut # (Auto) 16.56 H 13.57 H Lymph # (Auto) 4.69 H 4.92 H Culberson # (Auto) 1.57 H 0.25 Eos # (Auto) 0.01 0.00 Baso # (Auto) 0.07 0.05 Corrected WBC (Man) 19.70 17.00 Segmented Neutrophils 83 H 73 Band Neutrophils 3 H Lymphocytes 11 L 27 Monocytes 3 Nucleated RBCs 18 H 13 H Atypical Lymphocytes Target Cells 1+ Percent Retic Retic Hgb Equivalent Haptoglobin PT INR PTT (Actin FS) Fibrinogen D-Dimer, Quantitative Specimen Type Sample Site pH pCO2 pO2 HCO3 Base Excess Oxyhemoglobin ABG O2 Sat (Calculated) ABG O2 Saturation ABG Carboxyhemoglobin ABG Methemoglobin Aureliano Test A-a O2 Difference Total Hemoglobin Lactate Blood Gas Modality Vent Mode Spontaneous Rate FiO2 % Tidal Volume PEEP Sodium Potassium Chloride Carbon Dioxide Anion Gap BUN Creatinine Estimated GFR/1.73 m2 BUN/Creatinine Ratio Glucose POC Glucose Calculated Osmolality Calcium Phosphorus Magnesium Total Bilirubin Direct Bilirubin AST ALT Alkaline Phosphatase Lactate Dehydrogenase Total Protein Albumin Globulin Albumin/Globulin Ratio Plasma Lactate 5.7 H* Immunoglobulins G,A,M Hepatitis Panel Hepatitis C RNA Quant 10/12/19 10/12/19 10/13/19 23:45 23:45 04:30 WBC RBC Hgb Hct MCV MCH MCHC RDW Std Deviation Plt Count MPV Immature Gran % (Auto) Neut % (Auto) Lymph % (Auto) [place] % (Auto) Eos % (Auto) Baso % (Auto) Immature Gran # (Auto) Neut # (Auto) Lymph # (Auto) [place] # (Auto) Eos # (Auto) Baso # (Auto) Corrected WBC (Man) Segmented Neutrophils Band Neutrophils Lymphocytes Monocytes Nucleated RBCs Atypical Lymphocytes Target Cells Percent Retic Retic Hgb Equivalent Haptoglobin PT INR PTT (Actin FS) Fibrinogen D-Dimer, Quantitative Specimen Type ARTERIAL Sample Site R RADIAL pH 7.11 L* pCO2 72 H* pO2 73 HCO3 19.8 L Base Excess -6.5 L Oxyhemoglobin 93.7 L ABG O2 Sat (Calculated) 10.1 L ABG O2 Saturation 97.1 ABG Carboxyhemoglobin 2.20 ABG Methemoglobin 1.4 Aureliano Test YES A-a O2 Difference 550.0 Total Hemoglobin 7.6 L Lactate 4.60 H* Blood Gas Modality VENTILATOR Vent Mode A/C Spontaneous Rate 18 FiO2 % 100.0 Tidal Volume 500 PEEP 8.0 Sodium 137 Potassium 5.3 H Chloride 99 Carbon Dioxide 20 L Anion Gap 18 BUN 55 H Creatinine 6.3 H Estimated GFR/1.73 m2 11 BUN/Creatinine Ratio 9 Glucose 99 POC Glucose Calculated Osmolality 289 Calcium 6.4 L* Phosphorus Magnesium Total Bilirubin 3.91 H Direct Bilirubin AST 1691 H ALT 397 H Alkaline Phosphatase 258 H Lactate Dehydrogenase Total Protein 5.6 L Albumin 2.9 L Globulin 2.7 Albumin/Globulin Ratio 1.1 Plasma Lactate Immunoglobulins G,A,M SEE COMMENTS Hepatitis Panel Hepatitis C RNA Quant 10/13/19 10/13/19 10/13/19 05:24 05:24 09:25 WBC RBC Hgb Hct MCV MCH MCHC RDW Std Deviation Plt Count MPV Immature Gran % (Auto) Neut % (Auto) Lymph % (Auto) [place] % (Auto) Eos % (Auto) Baso % (Auto) Immature Gran # (Auto) Neut # (Auto) Lymph # (Auto) [place] # (Auto) Eos # (Auto) Baso # (Auto) Corrected WBC (Man) Segmented Neutrophils Band Neutrophils Lymphocytes Monocytes Nucleated RBCs Atypical Lymphocytes Target Cells Percent Retic Retic Hgb Equivalent Haptoglobin PT 33.9 H INR 3.22 PTT (Actin FS) 62.1 H Fibrinogen D-Dimer, Quantitative Specimen Type Sample Site pH pCO2 pO2 HCO3 Base Excess Oxyhemoglobin ABG O2 Sat (Calculated) ABG O2 Saturation ABG Carboxyhemoglobin ABG Methemoglobin Aureliano Test A-a O2 Difference Total Hemoglobin Lactate Blood Gas Modality Vent Mode Spontaneous Rate FiO2 % Tidal Volume PEEP Sodium 137 Potassium 5.5 H Chloride 97 L Carbon Dioxide 22 L Anion Gap 18 BUN 56 H Creatinine 6.7 H Estimated GFR/1.73 m2 10 BUN/Creatinine Ratio 8 Glucose 64 L POC Glucose Calculated Osmolality 287 Calcium 6.1 L* Phosphorus Magnesium Total Bilirubin 4.45 H Direct Bilirubin AST 1496 H ALT 370 H Alkaline Phosphatase 245 H Lactate Dehydrogenase Total Protein 5.3 L Albumin 2.8 L Globulin 2.5 Albumin/Globulin Ratio 1.1 Plasma Lactate Immunoglobulins G,A,M Hepatitis Panel Hepatitis C RNA Quant Assessment: Acute respiratory failure. Intubated on 10/10/19. Septic shock likely secondary to acute colitis vs. spontaneous bacterial peritonitis. Pneumonia. Sputum culture on 10/10/19 grows gram positive cocci today. Hypovolemic shock. Acute kidney injury. Transaminitis. Hypothermia. Liver cirrhosis with history of hepatitis C. Multiple organ failure with high mortality and morbidity possibility. Plan: Continue current treatment and supportive care per admitting and other teams on the case. Ventilation checked and titrated to the patients needs for clinical protocols with close monitoring. Sedation with prn morphine and prn Ativan titrated to the patients needs per clinical protocols with closely monitoring. Pressors titrated to the patients needs per clinical protocols with closely monitoring. Antibiotic (Vancomycin and Zosyn), bronchodilators and IV Solu-Cortef. Input was appreciated from Admitting MD and other teams on the case. Evaluation time in minutes: 34 minutes.
[2019-10-13] MEDS: D50W SYRINGE IV PRN ×2 (11:25→20:23)
[2019-10-13] MEDS ORDERED: VANCOMYCIN 1 GM/NS 1 GM/250 ML IVPB IV SCH (12:15)
--- NOTE | 2019-10-13 13:16 | ECHO REPORT ---
ORDER DATE: 10/12/2019 INTERPRETING PHYSICIAN: Dr. Randy Simmons. MEASUREMENTS: 1. Interventricular septum 1.3. 2. Left ventricular posterior wall 1.2. 3. Diastolic diameter 4.3. 4. Left atrium 4. SUMMARY OF 2-DIMENSIONAL IMAGIN. Technically suboptimal study. 2. The patient had normal heart rate. However, towards the end of the study, the patient's heart rate jumped up to 140 to 150. 3. Normal left ventricular cavity size. Mild left ventricular hypertrophy. Estimated ejection fraction of 65%. 4. There is diastolic dysfunction. 5. Aortic valve leaflets were trileaflet. 6. Tricuspid valve was normal. 7. Eustachian valve noted in the right atrium. 8. Mitral valve was normal. 9. Tricuspid valve was normal. There is mild tricuspid regurgitation. Peak velocity across the tricuspid valve was 3.3 m/sec. 10. Pulmonary artery systolic pressure of 54 mmHg. 11. Grade 2 diastolic dysfunction. 12. There is mild mitral regurgitation. 13. By Doppler studies, there is no aortic stenosis or regurgitation. 14. There is no pericardial effusion. cc: MD Stephany Coleman MD
--- NOTE | 2019-10-13 13:32 | HEMO/ONC PROGRESS NOTE ---
DATE: 10/13/2019 SUBJECTIVE: The patient remains unresponsive, on the ventilator. He is nonresponsive to stimuli. He has pink, foamy drainage in his ET tube. Family is not at bedside. OBJECTIVE: Vital Signs: Temperature 97.3 degrees, pulse rate 127, respiratory rate 18, blood pressure 105/57, O2 saturation 97% on 100% oxygen flow via mechanical ventilation. He is in 0/10 pain as he is unarousable. Physical Examination: General: Patient is unresponsive and unarousable. HEENT: Sclerae are anicteric. Conjunctivae are crusty. PERRLA. Oral mucosa is dry. Barney, frothy mucus in the tube. Cardiovascular: Tachycardic rate and rhythm, irregular. Respiratory: Diminished throughout the bases. Lungs have coarse crackles bilaterally. Extremities: Significant 2+ pitting edema noted to bilateral lower extremities. Laboratory: Potassium 5.5, creatinine 6.7, BUN 56, calcium 6.1. Total bilirubin 4.45, AST 1496, ALT 370, alkaline phosphatase 245. ASSESSMENT AND PLAN: 1. Septic shock. The patient remains on vasopressors. He is intubated per intensive care unit protocol. The patient is on broad-spectrum antibiotics. He has bilateral lobe pneumonia, peritonitis, and hepatitis C. 2. Acute hypercapnic and hypoxemic respiratory failure, multifactorial. The patient is being treated for pneumonia, pulmonary edema. He is on full ventilatory management at this time. Continue recommendations per kettle fry cook operator. 3. Thrombocytopenia. This again is multifactorial. Could be sepsis, disseminated intravascular coagulation, or liver failure. Use fresh frozen plasma if any bleeding is noted. The patient is on intravenous vitamin K for 2 more days. 4. Multiple organ failure. His prognosis is poor. He is continuing to have multiple organ failure at this time. 5. Global encephalopathy. The patient has remained unresponsive. His ammonia level is greater than 200 with multiorgan failure. Neurology has been consulted. 6. Possible shock liver. Aware. Dictated by JEAN MARIE Almanzar for Freddie Galvan MD cc: Freddie Galvan MD
[2019-10-13 13:52] LABS: CALCIUM 6.4 mg/dL (8.8-10.2)
--- NOTE | 2019-10-13 14:20 | NEUROLOGY PROGRESS NOTE ---
DATE: 10/13/2019 SUBJECTIVE: Dr. Bonilla saw Mr. Moralez for Neurology evaluation yesterday. He has pneumonia, peritonitis and reduced level of consciousness. Sedatives have been held and he has not become more alert. LABS: Lab shows elevated WBC, anemia, low platelet count, BUN climbing into the 50s, calcium 6.1, elevated phosphorus 10.0, elevated ammonia 213. Liver enzymes continue elevated. He has lab on 10/10/2019 that showed elevated TSH 9.82 and low free T4 at 0.84. PHYSICAL EXAMINATION: On exam now, Mr. Moralez is supine, intubated, not moving limbs spontaneously. With vigorous noxious stimulation, he began to groan a little bit with each breath. There was inconsistent very slight eyelid movement, but he did not sustain eye opening. There is full lateral eye movement with passive head turning. Pupils react minimally to bright light. Corneal reflex is brisk bilaterally. Limb tone is symmetric. Electroencephalogram shows low voltage generalized slowing without definite epileptiform discharge or other suggestion of seizure. IMPRESSION: Global encephalopathy, likely multiple factors including hepatic and renal failure, possibly other metabolic problems, possibly medication effects. I suspect he had a baseline cognitive impairment syndrome prior to current illness, but I have not established that with certainty. I have no urgent suggestion from Neurology standpoint and nothing to add to Dr. Bonilla's prior suggestions. We might consider brain imaging when practical and if he survives. Thanks for asking Neurology to see Mr. Moralez. cc: MD ASHLI Nowak III
[2019-10-13] MEDS: ATIVAN IV PRN ×2 (14:53→20:27)
--- NOTE | 2019-10-13 15:43 | CONSULTATION ---
DATE OF CONSULTATION: 10/13/2019 IMPRESSIONS: 1. Marked tachycardia due to sinus tachycardia in setting of sepsis and multiorgan/system dysfunction and hemodynamic compromise requiring pressors. Left ventricular ejection fraction normal by recent echocardiography. Suspect tachycardia driven by acuity of severe noncardiac illness. Intervention on sinus tachycardia from a cardiac rhythm standpoint probably counterproductive. 2. Sepsis with multiorgan/system dysfunction. 3. Pneumonia. 4. Peritonitis. 5. Acute on chronic renal dysfunction. 6. Hypertension. RECOMMENDATIONS: No intervention on sinus tachycardia in this setting as it is most likely to be counterproductive to patient's hemodynamic stability. HISTORY: This 59-year-old male with a past history of hypertension, chronic kidney disease, cirrhosis, hepatitis C, and nicotine dependence was admitted with progressive shortness of breath. He is also having diarrhea and some bloody colored stools. There was no chest pain. He has been found to have pneumonia. He has had a very tenuous hospital course with probable sepsis and multiorgan system dysfunction. He is on intravenous pressors with Levophed for hypotension and hemodynamic instability. He has demonstrated tendency for sinus tachycardia and for this reason, Cardiology was consulted. The patient is unresponsive due to encephalopathy. PAST MEDICAL HISTORY: 1. Hepatitis C. 2. Chronic liver disease and cirrhosis. 3. Hypertension. 4. Gout. 5. Chronic kidney disease. 6. Nicotine dependence. 7. Previous surgery for incision and drainage of sternoclavicular joint infection related MRSA in 2017. 8. Patient status post previous unspecified foot surgery. ALLERGIES: He has no known drug allergies. MEDICATIONS PRIOR TO ADMISSION: As listed. SOCIAL HISTORY: He has history of chronic cigarette use at 1 pack of cigarettes per day. He is reported not to use alcohol. FAMILY HISTORY: Noncontributory. REVIEW OF SYSTEMS: Not obtainable given patient unresponsive due to encephalopathy. PHYSICAL EXAMINATION: General: Reveals an ill-appearing, middle-aged male. Vital signs: Blood pressure 105/57, heart rate 127 with ECG monitor showing sinus tachycardia. Oxygen saturation 97% on ventilator with 100% oxygen. HEENT: Mucous membranes are moist. Neck: Supple without discernible jugular distention. Chest: Auscultation of the chest reveals coarse breath sounds bilaterally. Cardiac Exam: Reveals a regular tachycardia without appreciable murmur or gallop. Abdomen: Soft. Bowel sounds are normal. Extremities: Edematous with 4+ edema to the mid hip region. LABORATORY DATA: Includes a white blood cell count of 19.29, hematocrit 25.1, hemoglobin 7.6, platelet count 70,000. Protime 33.9, INR 3.22, PTT 62.1. Sodium 137, potassium 5.5, chloride 97, carbon dioxide 22, BUN 56, creatinine 6.7, glucose 116. Bilirubin 4.45, AST 1,496, ALT 370, alkaline phosphatase 245. cc: Vince Castillo MD
[2019-10-13] MEDS: PROTONIX IV SCH (16:10)
[2019-10-13] MEDS: SODIUM CHLORIDE 0.9% INJ SCH (16:10)
[2019-10-13] MEDS: MORPHINE IV PRN ×2 (16:11→22:05)
--- NOTE | 2019-10-13 20:33 | GASTROENTEROLOGY PROGRESS NOTE ---
DATE: 10/13/2019 SUBJECTIVE: Patient remains unresponsive he is intubated on mechanical ventilation. He has been started on SLED dialysis. He is on vasopressors. He does have some bloody drainage in the back from the paracentesis. Nurse states he has had some bloody secretions at times from his ET tube. I have spoken with some of the family members who were at the bedside about patient's status. OBJECTIVE: Vital Signs: Temperature 97.3 degrees, pulse 156, respirations 30, blood pressure 105/57. General: Patient is intubated on mechanical ventilation. Nonresponsive at present time. Abdomen: Some distention but soft. Bag and placed from paracentesis site with small amount of bloody drainage noted. LABORATORY: Hematology: WBC 19.29 hemoglobin 7.6, hematocrit 25.1, MCV 95.4, coagulation: ProTime 33.9, INR 3.22, PTT 62.1. Fibrinogen 101.0. D-dimer greater than 20 chemistry: Sodium 137, potassium 5.5, chloride 97, CO2 of 22, BUN 56, creatinine 6.7, glucose 64, calcium 6.1, direct bilirubin 4.45, AST 1496, ALT 370, alkaline phosphatase 245. ASSESSMENT AND PLAN: 1. Septic shock. Continue current management. 2. Respiratory failure on mechanical ventilation. Continue following with Pulmonology. 3. Renal failure. Patient has been started on SLED dialysis. 4. Encephalopathy. Continue current management. Patient has been seen by Neurology. 5. Thrombocytopenia. Continue current management. Patient has been seen by Hematology. PLAN: Patient is intubated on mechanical ventilation. On vasopressor. SLED dialysis has been started. Patient has been seen by multiple specialties, including pulmonology, nephrology, neurology, hematology, gastroenterology. Continue current management. I have spoken with some of the family about patient's prognosis. Will continue to follow and further plans will be made. I have discussed this case with Dr. Wheeler. Dictated by JEAN MARIE Chairez for Geronimo Wheeler MD cc: JEAN MARIE Smart MD
--- NOTE | 2019-10-13 20:58 | PROGRESS NOTE ---
DATE: 10/13/2019 SUBJECTIVE: The patient remains unresponsive on the ventilator. He is currently on Alec- Synephrine and Levophed. The patient continues to have bloody sputum and bloody output from the paracentesis site. The patient also has severe scrotal and penile edema, in addition to anasarca in his extremities. OBJECTIVE: Vital Signs: Temperature max 99.8 degrees, blood pressure 83/49, heart rate 137, respiratory rate 27, O2 saturation is 100% on the mechanical ventilator. Intake 5.5 L. General: A chronically ill-appearing, unresponsive male, on the ventilator. HEENT: Pupils are sluggish to respond. The patient also has periorbital edema. There is also bloody sputum coming from the ET tube. Heart: S1, S2 normal. Tachycardic. Lungs: Coarse breath sounds with crackles bilaterally. Abdomen: Distended. Hypoactive bowel sounds, firm on palpation. Groin: Severe penile and scrotal edema. Extremities: Anasarca involving the arms and legs. Neurologic: Patient is unresponsive. LABORATORY AND DIAGNOSTIC DATA: Sodium 137, potassium 5.5, chloride 97, CO2 of 22, BUN 56, creatinine 6.7, glucose 64, calcium 6.1, AST 1496, ALT 370, alkaline phosphatase 245, albumin 2.8. INR 3.2. ABG, pH of 7.1, pCO2 of 72, PO2 of 73, bicarbonate 19. Chest x-ray shows diffuse bilateral infiltrates. Sputum culture is growing oxacillin-sensitive Staphylococcus aureus. ASSESSMENT AND PLAN: 1. Acute hypercapnic and hypoxemic respiratory failure. Multifactorial. Continue on full ventilatory support. Continue to treat the underlying infections and volume overload. Further management as per the pole lift operator. 2. Septic shock. Continue with broad-spectrum antibiotics and pressor support as tolerated. The patient remains on Levophed and Alec-Synephrine. 3. Bilateral lobe pneumonia secondary to oxacillin-sensitive Staphylococcus aureus. Continue with antibiotic therapy. 4. Volume overload. Attempts will be made to pull fluid off of the patient during SLED today. 5. Acute kidney injury. Multifactorial. Dialysis is to be initiated today. 6. Global encephalopathy. Unchanged. The patient remains unresponsive on the ventilator. This is likely a combination of the patient's multiorgan failure and infection. Neurology is following. 7. Coagulopathy. Worse. We will give the patient vitamin K today and monitor for bleeding. Hematology is following. 8. Gastrointestinal bleed. Continue on the Protonix drip. GI is following. 9. Decompensated liver failure. Aware. 10. Hepatitis C. Aware. 11. Possible shock liver. Continue with supportive care. 12. Colitis. Continue with antibiotic therapy. 13. Thrombocytopenia. Continue to monitor closely. 14. Disposition. The patient remains critically ill with a high risk of mortality. The patient's family met with Palliative Care today and they elected to make the patient a DNR level 2. cc: Stephany Cowan MD MTD
[2019-10-13] MEDS: LEVOPHED 16 MG in D5 1/2 NS 250 ML IV SCH (23:30)
[2019-10-14] MEDS: ZOSYN 2.25 GM in NS 50 ML IV SCH ×3 (01:37→17:42)
[2019-10-14] MEDS: XOPENEX NEB INH SCH ×6 (03:35→23:00)
[2019-10-14] MEDS: ATROVENT NEB INH SCH ×6 (03:35→23:00)
[2019-10-14] MEDS: NEO-SYNEPHRINE 100 MG in NS 250 ML IV SCH ×5 (04:11→19:33)
[2019-10-14] MEDS: SOLU-CORTEF IV SCH ×4 (04:25→21:54)
[2019-10-14] MEDS: SODIUM CHLORIDE 0.9% INJ SCH ×2 (04:25→16:30)
[2019-10-14] MEDS: PROTONIX IV SCH ×2 (04:25→16:29)
[2019-10-14] MEDS: LEVOPHED 16 MG in D5 1/2 NS 250 ML IV SCH ×2 (05:13→21:54)
[2019-10-14 05:32] LABS: ALLEN TEST YES; BE -9.6 mmoll (-3.0-3.0); BLOOD TYPE ARTERIAL; HCO3-(ACT) 17.5 mmoll (20.0-26.0); METHB 1.7 % (0.0-1.5); O2(CT) 11.9 mL/dL (15.0-23.0); O2HB 96.5 % (95.0-99.0); PCO2(98.6) 26 mmHg (35-45); PO2(98.6) 153 mmHg (60-100); SAMPLE BLOOD; SAO2 100.1 % (95.0-100.0); SRATE 18 BPM; THB 8.5 g/dL (11.5-17.4); TVOL 550 mL; pH(98.6) 7.36 (7.35-7.45)
[2019-10-14 05:35] LABS: MODALITY VENTILATOR
[2019-10-14 05:35] LABS: BASO# 0.04 X1000 (0.0-0.2); BASO% 0.2 % (0.0-0.8); EOS# 0.01 X1000 (0.0-0.7); HEMATOCRIT 26.7 % (42.0-52.0); HEMOGLOBIN 8.2 g/dL (14.0-18.0); IMM GRAN# 0.07 X1000 (0.0-0.04); IMM GRAN% 0.3 % (0.0-0.5); LYMPH# 4.56 X1000 (1.2-3.4); LYMPH% 18.4 % (20.5-51.1); MCH 29.1 PG (27-31); MCHC 30.7 g/dL (33-37); MCV 94.7 FL (81-99); MONO% 6.9 % (1.7-9.3); MPV 11.5 FL (7.4-10.4); NEUT# 18.39 X1000 (1.4-6.5); NEUT% 74.2 % (42.2-75.2); PLT 48 X1000 (130-400); RBC 2.82 XMIL (4.7-6.1); RDW 20.3 % (11.5-14.5); WBC 24.77 X1000 (4.8-10.8)
[2019-10-14 05:40] LABS: INR 3.37; PROTIME 35.2 Seconds (11.0-16.0)
[2019-10-14 05:49] LABS: ALBUMIN 2.4 g/dL (3.5-5.0); CALCIUM 7.2 mg/dL (8.8-10.2); CREATININE 4.4 mg/dL (0.7-1.2); PHOSPHORUS 7.6 mg/dL (2.7-4.5); POTASSIUM 5.8 mmol/L (3.5-5.1)
[2019-10-14 05:51] LABS: ALB/GLOB RATIO 1.1; ALBUMIN 2.6 g/dL (3.5-5.0); DIRECT BILIRUBIN 4.8 mg/dL (0.00-0.20); TOTAL BILIRUBIN 6.79 mg/dL (0.20-1.00); TOTAL PROTEIN 4.9 g/dL (6.3-8.3)
[2019-10-14] MEDS: VITAMIN K 10 MG in NS 50 ML IV SCH (06:06)
[2019-10-14] MEDS: D50W SYRINGE IV PRN ×2 (06:15→20:52)
[2019-10-14] MEDS ORDERED: NS 2,000 ML MISC PRN (06:29)
--- NOTE | 2019-10-14 06:48 | Diag Imaging Result Doc PS360 ---
CHEST-PORTABLE - 10/14/2019 INDICATION: dyspnea COMPARISON: 10/13/2019 FINDINGS: Support tubes are stable and in good position. Stable dense bilateral mixed interstitial alveolar infiltrates. Stable cardiomegaly. No pneumothorax or large pleural effusion. IMPRESSION: No change from prior. Electronically signed by Ernie Domínguez 10/14/2019 6:46 AM
[2019-10-14 07:02] LABS: RETIC% 3.77 % (0.8-2.1); RETIC-HE 25.6 PG (28.2-36.6)
[2019-10-14] MEDS: NS NEB INH SCH (07:41)
[2019-10-14] MEDS ORDERED: ALBUMIN 25% IV ONE (08:36)
[2019-10-14] MEDS: DULCOLAX PR SCH ×2 (09:33→23:44)
[2019-10-14] MEDS: MYCAMINE 100 MG in NS 100 ML IV SCH (10:08)
--- NOTE | 2019-10-14 10:12 | HEMO/ONC PROGRESS NOTE ---
DATE: 10/14/2019 SUBJECTIVE: The patient is unresponsive in the ICU, remains on ventilator and pressors. He continues to have bloody sputum and output from his paracentesis site, as well as significant anasarca to his extremities. OBJECTIVE: Vital Signs: Temperature 98 degrees, pulse rate 139, respiratory rate 18, blood pressure 89/50, and O2 saturation 95% on mechanical ventilation at 15 liters flow rate. The patient does not respond to pain. General: On physical exam, a chronically ill-appearing, unresponsive male on the ventilator, supine in the ICU bed. HEENT: Pupils are sluggish, periorbital edema noticed. Bloody sputum in ET tube. Oral mucosa is dry. Cardiovascular: S1 and S2 auscultated. Heart rate tachycardic. Respiratory: Diminished breath sounds. Lung sounds have coarse adventitious breath sounds. Extremities: Significant edema to all 4 extremities. LABORATORY DATA: WBC 24.77, hemoglobin 8.2, hematocrit 26.6, platelet count 48,000, reticulocyte count 3.77. PTT 35.2, INR 3.37, PTT 57.6. Fibrinogen 98. D-dimer 17.61. Haptoglobin less than 10. Potassium 5.8, creatinine 4.4, BUN 32, calcium 7.2, total bilirubin 6.79, direct 4.8. AST 836, ALT 284, alkaline phosphatase 217, LDH 1699. ASSESSMENT AND PLAN: 1. Acute hypercapnic and hypoxemic respiratory failure, multifactorial. Patient is on full ventilator support. Continue treatment of underlying infections and volume overload. Treatment per medical management and oracle hyperion consultant. 2. Septic shock. The patient is on broad-spectrum antibiotics as well as pressors. Continue management per medical staff. 3. Bilateral lobe pneumonia secondary to oxacillin-sensitive Staphylococcus aureus. Continue antibiotic therapy. Continue recommendations per Dr. Vivas and medical staff. 4. Thrombocytopenia, multifactorial. It appears that the patient is in disseminated intravascular coagulation (DIC). We recommend 2 units of fresh frozen plasma if this is okay with Dr. Cowan for today. 5. Disseminated intravascular coagulation. The patient appears to be in disseminated intravascular coagulation according to labs. See recommendation above. 6. Multiorgan failure. His prognosis is very poor. He has continued to have multiorgan failure at this time. 7. Global encephalopathy. The patient has remained unresponsive despite being off any sedatives. His ammonia level is significant. Neurology is aware. 8. Shock liver and hepatitis C. We are aware. Dictated by JEAN MARIE Almanzar for Freddie Galvan MD cc: Freddie Galvan MD
--- NOTE | 2019-10-14 10:21 | INFECTIOUS DISEASE PROGRESS NO ---
DATE: 10/14/2019 PRESENT ILLNESS: The patient has pneumonia, peritonitis, and hepatitis C. MEDICATIONS: The patient has been on Zosyn and vancomycin now for 4 days and on micafungin for 1 day. PHYSICAL EXAMINATION: Vital Signs: Temperature is 98 degrees pulse 134, respirations 19, blood pressure 89/50. General: This is an ill-appearing middle-aged male. He is intubated and on a respirator. Head/Eyes/Ears/Nose/Throat: The patient has an orogastric and orotracheal tube in place. There is no drainage from his nose or ears. Neck: No stiffness. Lungs: Bilateral rhonchi. Cardiovascular: Heart rate is regular. Abdomen: Protuberant. It is soft and it does not seem to be tender. The patient has an ostomy bag in place where ascites is draining from the abdomen. The fluid is sanguinous. The patient also has bilateral groin IVs. There is no purulence or bleeding at both sites. Neurologic: The patient is obtunded. He did not respond to verbal stimuli. He is sedated. He does not have a tremor. Extremities: Both legs are edematous and they have peau d'orange skin. LAB AND X-RAY: The patient's chest x-ray shows that the patient has bilateral infiltrates. His CBC shows a white count of 24,770, hemoglobin 8.2, and platelet count 48,000. Arterial blood gases show a pH of 7.36, a PO2 of 153, and a pCO2 of 26. Creatinine is 4.4, GFR is 17. IgG is 1643 and IgA is 341. ASSESSMENT AND PLAN: The patient has pneumonia, peritonitis, and hepatitis C. My plan is to continue vancomycin, Zosyn and micafungin. COMORBIDITIES: The patient has cirrhosis of the liver due to hepatitis C. He also has psoriasis, chronic kidney disease, and he smokes cigarettes. He also has chronic bilateral leg edema. cc: Clemente Vivas MD
[2019-10-14 11:24] LABS: HCV BY PCR SEE COMMENTS
[2019-10-14] MEDS: ATIVAN IV PRN ×3 (11:57→21:54)
[2019-10-14] MEDS: MORPHINE IV PRN ×3 (12:10→22:21)
--- NOTE | 2019-10-14 13:05 | EEG REPORT ---
DATE: 10/12/2019 COMMENT: This is a digitally recorded EEG done portably in the ICU on a 59-year-old patient with persistent poor responsiveness, multiple metabolic and possibly toxic problems. FINDINGS: Frontal muscle contraction and sweat artifact are present, but do not hinder interpretation. Background is fairly monotonous low-amplitude theta and delta, mostly 2-4 hertz symmetrically across the hemispheres. Sustained posterior dominant rhythm was not present. There was no variation to correlate with spontaneous drowsing or sleep. There was occasional faster activity at 4-6 hertz, mostly rhythmic and symmetric, but no sustained faster rhythm. No definite epileptiform discharge was identified. Photic stimulation did not alter the record. INTERPRETATION: Abnormal electroencephalogram because of generalized low- voltage slowing. CORRELATION: This is indicative of diffuse encephalopathy and is nonspecific. There is nothing on this record to suggest a tendency to seizure. cc: MD Stephany Nowak III, [facility]
--- NOTE | 2019-10-14 13:09 | NEUROLOGY PROGRESS NOTE ---
DATE: 10/14/2019 Mr. Moralez has continued poorly responsive. Family was present earlier and he seemed agitated with increased heart rate but no specific limb movement. Eyes may have opened briefly and inconsistently. Following that, he received morphine and lorazepam. I think this makes 3 doses of morphine and 3 doses of lorazepam in the last 24-36 hours. I do not have any new thoughts or new suggestions from neurology standpoint. I do not think there is any neurologic workup necessary on an urgent basis. Eventually, depending on his clinical course, we might consider brain imaging and repeat EEG. Thanks for asking Neurology to see Mr. Moralez. cc: Felice Sosa III, MD [facility]
--- NOTE | 2019-10-14 17:00 | PROVIDER PROGRESS NOTE ---
Progress Note Dr. Robles Progress Note/Pulmonary and or critical care We appreciated progress of care, Complications, change in diagnosis, and instructions to patient. Subjective: We note the level of consciousness, bed (chair) position, family presence (if any), level of lethargy, feeling of symptoms, and changes from baseline condition/symptom. The patient is intubated. He remains unresponsive to painful stimuli. There is pink frothy drainage noted in the hose attaching to the ET tube and some pink foamy drainage in his mouse. He has been on SLEDD per Dr. Ramirez for 1.5 hours with 6.5 hours remained. He is on Alec and Levophed drips. Patients mother at the bedside. Objective: Vital Signs: We reviewed EMR current values for Pulse rate, Blood pressure, Pulse rate, respiratory rate and Pulse oximetry. Also noted other values and trends if present (e.g. I/O, CVP). 97.8, KS 101, RR 18, BP 100/59 and SaO2 94 on AC 18, 100%, 500, 8. I/O 5070 ml Physical Examination: General: Lying in bed with no acute distress noted. [place] frothy drainage noted in the hose attaching to the ETT with pink foamy drainage in the mouth noted. HEENT: Normocephalic. Atraumatic. Mucus pink and moist. ET tube in place. Sluggish pupils. Chest: Mechanically ventilated. Symmetrical excursion. Coarse breathing sounds throughout with inspiratory and expiratory crackles bilaterally. CVS: Tachycardia. S1 and S2 appreciated. Abdomen: Soft. Non-distended. Edema. No bowel sounds noted in all 4 quadrants. Extremities: BLE chronic lymphedema with severe pitting edema 4+. BUE pitting edema 1-2+. Neuro: Unresponsive to painful stimuli. Labs and Radiology: Reviewed available labs and radiology values available at time of EMR review. Laboratory Results 10/11/19 10/12/19 10/13/19 11:45 23:45 20:17 WBC RBC Hgb Hct MCV MCH MCHC RDW Std Deviation Plt Count MPV Immature Gran % (Auto) Neut % (Auto) Lymph % (Auto) Titus % (Auto) Eos % (Auto) Baso % (Auto) Immature Gran # (Auto) Neut # (Auto) Lymph # (Auto) Titus # (Auto) Eos # (Auto) Baso # (Auto) Percent Retic Retic Hgb Equivalent PT INR PTT (Actin FS) Fibrinogen D-Dimer, Quantitative Specimen Type Sample Site pH pCO2 pO2 HCO3 Base Excess Oxyhemoglobin ABG O2 Sat (Calculated) ABG O2 Saturation ABG Carboxyhemoglobin ABG Methemoglobin Aureliano Test A-a O2 Difference Total Hemoglobin Lactate Blood Gas Modality Vent Mode Spontaneous Rate FiO2 % Tidal Volume PEEP Sodium Potassium Chloride Carbon Dioxide Anion Gap BUN Creatinine Estimated GFR/1.73 m2 BUN/Creatinine Ratio Glucose POC Glucose 46 L Calculated Osmolality Calcium Phosphorus Total Bilirubin Direct Bilirubin AST ALT Alkaline Phosphatase Lactate Dehydrogenase Total Protein Albumin Globulin Albumin/Globulin Ratio Procalcitonin SEE COMMENTS HCV RNA (DNA PCR) SEE COMMENTS 10/13/19 10/14/19 10/14/19 20:41 04:50 04:50 WBC RBC Hgb Hct MCV MCH MCHC RDW Std Deviation Plt Count MPV Immature Gran % (Auto) Neut % (Auto) Lymph % (Auto) Titus % (Auto) Eos % (Auto) Baso % (Auto) Immature Gran # (Auto) Neut # (Auto) Lymph # (Auto) Titus # (Auto) Eos # (Auto) Baso # (Auto) Percent Retic Retic Hgb Equivalent PT 35.2 H INR 3.37 PTT (Actin FS) Fibrinogen D-Dimer, Quantitative Specimen Type Sample Site pH pCO2 pO2 HCO3 Base Excess Oxyhemoglobin ABG O2 Sat (Calculated) ABG O2 Saturation ABG Carboxyhemoglobin ABG Methemoglobin Aureliano Test A-a O2 Difference Total Hemoglobin Lactate Blood Gas Modality Vent Mode Spontaneous Rate FiO2 % Tidal Volume PEEP Sodium 139 Potassium 5.8 H Chloride 104 Carbon Dioxide 19 L Anion Gap 16 BUN 32 H Creatinine 4.4 H Estimated GFR/1.73 m2 17 BUN/Creatinine Ratio 7 Glucose 58 L POC Glucose 116 H D Calculated Osmolality 282 Calcium 7.2 L D Phosphorus 7.6 H Total Bilirubin Direct Bilirubin AST ALT Alkaline Phosphatase Lactate Dehydrogenase Total Protein Albumin 2.4 L Globulin Albumin/Globulin Ratio Procalcitonin HCV RNA (DNA PCR) 10/14/19 10/14/19 10/14/19 04:50 04:50 04:50 WBC 24.77 H RBC 2.82 L Hgb 8.2 L Hct 26.7 L MCV 94.7 MCH 29.1 MCHC 30.7 L RDW Std Deviation 20.3 H Plt Count 48 L D MPV 11.5 H Immature Gran % (Auto) 0.3 Neut % (Auto) 74.2 Lymph % (Auto) 18.4 L Titus % (Auto) 6.9 Eos % (Auto) 0.0 Baso % (Auto) 0.2 Immature Gran # (Auto) 0.07 H Neut # (Auto) 18.39 H Lymph # (Auto) 4.56 H Titus # (Auto) 1.70 H Eos # (Auto) 0.01 Baso # (Auto) 0.04 Percent Retic Retic Hgb Equivalent PT INR PTT (Actin FS) Fibrinogen D-Dimer, Quantitative Specimen Type Sample Site pH pCO2 pO2 HCO3 Base Excess Oxyhemoglobin ABG O2 Sat (Calculated) ABG O2 Saturation ABG Carboxyhemoglobin ABG Methemoglobin Aureliano Test A-a O2 Difference Total Hemoglobin Lactate Blood Gas Modality Vent Mode Spontaneous Rate FiO2 % Tidal Volume PEEP Sodium Potassium Chloride Carbon Dioxide Anion Gap BUN Creatinine Estimated GFR/1.73 m2 BUN/Creatinine Ratio Glucose POC Glucose Calculated Osmolality Calcium Phosphorus Total Bilirubin 6.79 H Direct Bilirubin 4.80 H AST 836 H ALT 284 H Alkaline Phosphatase 217 H Lactate Dehydrogenase 1699 H Total Protein 4.9 L Albumin 2.6 L Globulin 2.3 Albumin/Globulin Ratio 1.1 Procalcitonin HCV RNA (DNA PCR) 10/14/19 10/14/19 10/14/19 04:50 04:50 05:21 WBC RBC Hgb Hct MCV MCH MCHC RDW Std Deviation Plt Count MPV Immature Gran % (Auto) Neut % (Auto) Lymph % (Auto) Titus % (Auto) Eos % (Auto) Baso % (Auto) Immature Gran # (Auto) Neut # (Auto) Lymph # (Auto) Titus # (Auto) Eos # (Auto) Baso # (Auto) Percent Retic 3.77 H Retic Hgb Equivalent 25.6 L PT INR PTT (Actin FS) Fibrinogen 98.0 L D-Dimer, Quantitative 17.61 H Specimen Type ARTERIAL Sample Site R RADIAL pH 7.36 pCO2 26 L pO2 153 H HCO3 17.5 L Base Excess -9.6 L Oxyhemoglobin 96.5 ABG O2 Sat (Calculated) 11.9 L ABG O2 Saturation 100.1 H ABG Carboxyhemoglobin 2.00 ABG Methemoglobin 1.7 H Aureliano Test YES A-a O2 Difference 528.0 Total Hemoglobin 8.5 L Lactate 7.10 H* Blood Gas Modality VENTILATOR Vent Mode A/C Spontaneous Rate 18 FiO2 % 100.0 Tidal Volume 550 PEEP 8.0 Sodium Potassium Chloride Carbon Dioxide Anion Gap BUN Creatinine Estimated GFR/1.73 m2 BUN/Creatinine Ratio Glucose POC Glucose Calculated Osmolality Calcium Phosphorus Total Bilirubin Direct Bilirubin AST ALT Alkaline Phosphatase Lactate Dehydrogenase Total Protein Albumin Globulin Albumin/Globulin Ratio Procalcitonin HCV RNA (DNA PCR) 10/14/19 10/14/19 10/14/19 06:11 06:33 07:23 WBC RBC Hgb Hct MCV MCH MCHC RDW Std Deviation Plt Count MPV Immature Gran % (Auto) Neut % (Auto) Lymph % (Auto) Titus % (Auto) Eos % (Auto) Baso % (Auto) Immature Gran # (Auto) Neut # (Auto) Lymph # (Auto) Titus # (Auto) Eos # (Auto) Baso # (Auto) Percent Retic Retic Hgb Equivalent PT INR PTT (Actin FS) 57.6 H Fibrinogen D-Dimer, Quantitative Specimen Type Sample Site pH pCO2 pO2 HCO3 Base Excess Oxyhemoglobin ABG O2 Sat (Calculated) ABG O2 Saturation ABG Carboxyhemoglobin ABG Methemoglobin Aureliano Test A-a O2 Difference Total Hemoglobin Lactate Blood Gas Modality Vent Mode Spontaneous Rate FiO2 % Tidal Volume PEEP Sodium Potassium Chloride Carbon Dioxide Anion Gap BUN Creatinine Estimated GFR/1.73 m2 BUN/Creatinine Ratio Glucose POC Glucose 43 L D 100 D Calculated Osmolality Calcium Phosphorus Total Bilirubin Direct Bilirubin AST ALT Alkaline Phosphatase Lactate Dehydrogenase Total Protein Albumin Globulin Albumin/Globulin Ratio Procalcitonin HCV RNA (DNA PCR) 10/14/19 10/14/19 11:31 16:48 WBC RBC Hgb Hct MCV MCH MCHC RDW Std Deviation Plt Count MPV Immature Gran % (Auto) Neut % (Auto) Lymph % (Auto) Titus % (Auto) Eos % (Auto) Baso % (Auto) Immature Gran # (Auto) Neut # (Auto) Lymph # (Auto) Titus # (Auto) Eos # (Auto) Baso # (Auto) Percent Retic Retic Hgb Equivalent PT INR PTT (Actin FS) Fibrinogen D-Dimer, Quantitative Specimen Type Sample Site pH pCO2 pO2 HCO3 Base Excess Oxyhemoglobin ABG O2 Sat (Calculated) ABG O2 Saturation ABG Carboxyhemoglobin ABG Methemoglobin Aureliano Test A-a O2 Difference Total Hemoglobin Lactate Blood Gas Modality Vent Mode Spontaneous Rate FiO2 % Tidal Volume PEEP Sodium Potassium Chloride Carbon Dioxide Anion Gap BUN Creatinine Estimated GFR/1.73 m2 BUN/Creatinine Ratio Glucose POC Glucose 87 84 Calculated Osmolality Calcium Phosphorus Total Bilirubin Direct Bilirubin AST ALT Alkaline Phosphatase Lactate Dehydrogenase Total Protein Albumin Globulin Albumin/Globulin Ratio Procalcitonin HCV RNA (DNA PCR) Assessment: Acute respiratory failure. Intubated on 10/10/19. Septic shock likely secondary to acute colitis vs. spontaneous bacterial peritonitis. Pneumonia. Sputum culture on 10/10/19 grows gram positive cocci today. Hypovolemic shock. Acute kidney injury. Transaminitis. Hypothermia. Liver cirrhosis with history of hepatitis C. Multiple organ failure with high mortality and morbidity possibility. Plan: Continue current treatment and supportive care per admitting and other teams on the case. Ventilation checked and titrated to the patients needs for clinical protocols with close monitoring. Sedation with prn morphine and prn Ativan titrated to the patients needs per clinical protocols with closely monitoring. Pressors titrated to the patients needs per clinical protocols with closely monitoring. Antibiotic (Vancomycin and Zosyn), bronchodilators and IV Solu-Cortef. Input was appreciated from Admitting MD and other teams on the case. Evaluation time in minutes: 32 minutes.
[2019-10-14] MEDS ORDERED: VANCOMYCIN 1 GM/NS 1 GM/250 ML IVPB IV ONE (18:00)
--- NOTE | 2019-10-14 19:15 | NEPHROLOGY PROGRESS NOTE ---
DATE: 10/14/2019 SUBJECTIVE: Mr. Moralez is currently resting quietly in bed. He is currently intubated. He is unresponsive. OBJECTIVE: His most recent vital signs: Temperature 98 degrees, blood pressure 104/53, heart rate 121, respirations are 19. He remains on 100% FiO2. His last recorded saturation is 95%. He has had 2022 in, 1905 out, 1.4 L on dialysis. LABORATORY DATA: Sodium 139, potassium 5.8, chloride 104, CO2 19, BUN 32, creatinine 4.4, glucose is 58. Anion gap is 16, calcium 7.2, phosphorus 7.6, albumin 2.4. White count 24.7, hemoglobin 8.2, hematocrit 26.7, platelet count 48,000. ABGs pH 7.36, CO2 26, PO2 is 153, bicarb 17.5 with a lactate of 7.1 on 100%. PHYSICAL EXAM: General: This is a 59-year-old male resting quietly in bed, ventilator dependent. Appears in no acute distress though chronically ill. Skin: Warm and dry. HEENT: Normocephalic atraumatic. Conjunctiva is jaundiced with scleral edema. Mucous membranes are dry. Neck: Supple. He has positive JVD. Cardiovascular: Regular rate and rhythm he is tachycardic on the monitor. Lungs: Diminished breath sounds with high-pitched rhonchi, bilateral crackles. Abdomen: Firm. Hypoactive bowel sounds. NG tube remains to low intermittent suction. Coffee-ground material noted. Genitourinary: Not inspected. Shen catheter is in place. Extremities: Continues with 4+ edema into the mid hip abdominal region. The patient is 18 L positive today. Integumentary: The patient has a left groin central line now with a right femoral Vas-Cath. These appear to be dry and intact. Neurological: He has been unresponsive to tactile stimuli. ASSESSMENT AND PLAN: 1. Acute on chronic kidney disease. Patient has ischemic acute tubular necrosis secondary to septic shock. Diminished urinary output. 2. Fluid volume overload requiring sled. We will place him on a 3 K bath. He is to dialyze for 8 hours. We will attempt 0.5 L over an hour for a total of 4-6 L of ultrafiltration today. He does remain on Levophed and Alec-Synephrine. 3. Shock. The patient requires pressor support. We will continue to monitor. Vasopressin is available if indicated. 4. Electrolytes and acid-base balance with correction on dialysis. Mild hyperkalemia today at 5.8 potassium. 5. Sepsis. The patient is currently on renal dosed vancomycin and Zosyn. 6. Anemia. Hemoglobin remains low at 8.2. 7. Respiratory failure. Continue to be monitored by primary care and Gastroenterology. I would like to thank you for allowing us to follow with this patient. Dictated by JEAN MARIE Pearce for Magdiel Ramirez MD Face to face encounter, data reviewed, discussed with Cheyanne Mejía on 10/14/19. I agree with the above assessment and plan of care. cc: JEAN MARIE Pearce MD [facility]
[2019-10-14] MEDS ORDERED: NS 500 ML IV ONE (21:02)
--- NOTE | 2019-10-14 21:20 | GASTROENTEROLOGY PROGRESS NOTE ---
DATE: 10/14/2019 SUBJECTIVE: Patient was seen during morning rounds, he was still unresponsive on mechanical ventilation and vasopressors, still had some bloody output from the bag around the paracentesis site per nurse report. Still had some bloody sputum. Patient is unresponsive. There was no family at the bedside at the time of my visit. He has edema noted to his extremities. OBJECTIVE: Vital Signs: Temperature 97.8 degrees, pulse 101, respirations 18, blood pressure 100/59. General: Patient is unresponsive on mechanical ventilation and vasopressors. Patient is receiving SLED dialysis. Patient has edema to his extremities, some abdominal distention. There is a colostomy in place from previous paracentesis site with a small amount of bloody drainage noted. LABORATORY: Hematology: WBC 24.77, hemoglobin 8.2, hematocrit 26.7, MCV 94.7, platelets 48,000. ProTime 35.2, INR 3.37, PTT 57.6, fibrinogen 98.0, D-dimer 17.61. Chemistry: Sodium 139, potassium 5.8, chloride 104, CO2 19, BUN 32, creatinine 4.4, glucose 58, calcium 7.2, phosphorus 7.6, total bilirubin 6.79, AST 836, ALT 284, alkaline phosphatase 217. ASSESSMENT AND PLAN: 1. Septic shock. The patient is on antibiotics. 2. Acute respiratory failure. Patient is intubated on mechanical ventilation. 3. Pneumonia. Continue current management. 4. Thrombocytopenia, possible DIC. The patient has been seen by Hematology. 5. Encephalopathy. Patient has been seen by neurology. 6. Renal failure. Patient has been started on SLED and is being followed by Nephrology. 7. Shock liver, hepatitis C, elevated liver function tests. Will continue to monitor. 8. The patient continues to be critical on mechanical ventilation and vasopressors. He is unresponsive. Continue current management. Will continue to follow and further plans will be made as needed. I have discussed this case with Dr. Wheeler. Dictated by JEAN MARIE Chairez for Geronimo Wheeler MD cc: JEAN MARIE Smart MD
--- NOTE | 2019-10-14 21:43 | PROGRESS NOTE ---
DATE: 10/14/2019 SUBJECTIVE: The patient remains unresponsive on the ventilator. He is currently on Alec- Synephrine and Levophed drip. The patient remains anuric. OBJECTIVE: Vital Signs: Temperature 97.8 degrees, blood pressure 100/59, heart rate 101, respirations 18, O2 saturations 94% on the mechanical ventilator. General: This is a chronically ill-appearing elderly male currently unresponsive on the ventilator. HEENT: The pupils are sluggish. The patient has periorbital edema. Heart: S1, S2 normal. Tachycardic. Lungs: Coarse breath sounds with crackles bilaterally. Abdomen: Distended, hypoactive bowel sounds. Groin: Severe penile and scrotal edema. Extremities: Anasarca involving the arms and legs. Neurologic: The patient is unresponsive. LABS: White blood cell count 24, hemoglobin 8.2, hematocrit 26, platelets 48,000. INR 3.3. ABG: pH of 7.36, pCO2 26, oxygen 153, lactate 7. Sodium 139, potassium 5.8, chloride 104, CO2 19, BUN 32, creatinine 4.4, glucose 58, phosphorus 7.6, total bilirubin 6.7, AST 836, ALT 284, alkaline phosphatase 217, LDH 1666, albumin 2.6. ASSESSMENT AND PLAN: 1. Acute hypercapnic and hypoxemic respiratory failure. Multifactorial. Continue with ventilatory support. 2. Septic shock. The patient remains on broad-spectrum antibiotics as well as multiple pressors. 3. Bilateral lobe pneumonia secondary to oxacillin-sensitive Staphylococcus aureus. Continue with antibiotic and antifungal therapy as directed by Dr. Vivas. 4. Volume overload. This is being addressed during the patient's SLED treatments. 5. Acute kidney injury with anuria. Multifactorial. Continue with SLED as ordered by Dr. Ramirez. 6. Global encephalopathy. Unchanged. Continue to treat the underlying issues. 7. Disseminated intravascular coagulation. We will transfuse 2 units of FFP as recommended by Dr. Galvan. 8. Coagulopathy. Continue with vitamin K. 9. Decompensated liver failure. Aware. 10. Shock liver. Slightly improved. 11. Hepatitis C. Aware. 12. Gastrointestinal bleed. Continue on the Protonix drip. GI is following. 13. Thrombocytopenia. Likely secondary to disseminated intravascular coagulation. 14. Disposition. The patient remains critically ill with a high risk of mortality. The patient is currently a DNR level 2. cc: Stephany Cowan MD [facility] HOSPITALMarguerite
[2019-10-15] MEDS: NEO-SYNEPHRINE 100 MG in NS 250 ML IV SCH ×5 (01:03→21:04)
[2019-10-15] MEDS: ATIVAN IV PRN ×2 (01:13→21:03)
[2019-10-15] MEDS: ZOSYN 2.25 GM in NS 50 ML IV SCH ×3 (01:13→17:10)
[2019-10-15] MEDS: ATROVENT NEB INH SCH ×6 (03:39→23:21)
[2019-10-15] MEDS: XOPENEX NEB INH SCH ×6 (03:39→23:21)
[2019-10-15] MEDS: PROTONIX IV SCH ×2 (04:34→15:53)
[2019-10-15] MEDS: SOLU-CORTEF IV SCH ×4 (04:35→22:03)
[2019-10-15] MEDS: SODIUM CHLORIDE 0.9% INJ SCH (04:35)
[2019-10-15 05:12] LABS: ALLEN TEST YES; BE -8.9 mmoll (-3.0-3.0); BLOOD TYPE ARTERIAL; HCO3-(ACT) 17.8 mmoll (20.0-26.0); O2(CT) 11.7 mL/dL (15.0-23.0); PO2(98.6) 55 mmHg (60-100); SAMPLE BLOOD; SAO2 90.4 % (95.0-100.0); SRATE 18 BPM; THB 9.5 g/dL (11.5-17.4); TVOL 550 mL
[2019-10-15 05:47] LABS: pH(98.6) 7.16 (7.35-7.45)
[2019-10-15 05:48] LABS: MODALITY VENTILATOR; PCO2(98.6) 55 mmHg (35-45)
[2019-10-15] MEDS: D50W SYRINGE IV PRN ×2 (06:14→15:52)
[2019-10-15 06:36] LABS: BASO# 0.02 X1000 (0.0-0.2); BASO% 0.2 % (0.0-0.8); EOS# 0.01 X1000 (0.0-0.7); EOS% 0.1 % (0.0-10.0); HEMATOCRIT 24.8 % (42.0-52.0); HEMOGLOBIN 7.4 g/dL (14.0-18.0); IMM GRAN# 0.07 X1000 (0.0-0.04); IMM GRAN% 0.5 % (0.0-0.5); LYMPH# 2.17 X1000 (1.2-3.4); LYMPH% 16.3 % (20.5-51.1); MCH 28.4 PG (27-31); MCHC 29.8 g/dL (33-37); MONO# 1.05 X1000 (0.11-0.59); MONO% 7.9 % (1.7-9.3); MPV 11.6 FL (7.4-10.4); NEUT# 9.98 X1000 (1.4-6.5); PLT 40 X1000 (130-400); RBC 2.61 XMIL (4.7-6.1); RDW 20.4 % (11.5-14.5)
--- NOTE | 2019-10-15 06:43 | Diag Imaging Result Doc PS360 ---
CHEST-PORTABLE - 10/15/2019 INDICATION: dyspnea COMPARISON: 10/14/2019 FINDINGS: Support tubes are stable and in good position. There has been increase in density of consolidation at the right middle lobe. Otherwise stable dense bilateral heterogeneous infiltrates. No pneumothorax. Heart size remains top normal. IMPRESSION: Dense consolidation/collapse of the right middle lobe. Superimposed on the pre-existing severe diffuse infiltrates. Electronically signed by Ernie Domínguez 10/15/2019 6:41 AM
[2019-10-15 06:44] LABS: INR 2.42
[2019-10-15 07:01] LABS: ALB/GLOB RATIO 1.3; ALBUMIN 3.1 g/dL (3.5-5.0); CALCIUM 8.4 mg/dL (8.8-10.2); CREATININE 3.2 mg/dL (0.7-1.2); DIRECT BILIRUBIN 5.7 mg/dL (0.00-0.20); POTASSIUM 5.3 mmol/L (3.5-5.1); TOTAL BILIRUBIN 8.83 mg/dL (0.20-1.00); TOTAL PROTEIN 5.5 g/dL (6.3-8.3)
[2019-10-15] MEDS ORDERED: NS 2,000 ML MISC PRN (07:18)
[2019-10-15 07:51] LABS: LYMPHS 8 % (21-51); MONO 2 % (1-9); NRBC 3 % (0-0); SEGS 86 % (42-75)
[2019-10-15] MEDS: NS NEB INH SCH ×2 (07:58→16:02)
[2019-10-15] MEDS: DULCOLAX PR SCH ×2 (09:11→21:01)
[2019-10-15] MEDS: MYCAMINE 100 MG in NS 100 ML IV SCH (09:13)
--- NOTE | 2019-10-15 09:30 | HEMO/ONC PROGRESS NOTE ---
DATE: 10/15/2019 SUBJECTIVE: The patient remains unresponsive on a ventilator and pressors. He is also anuric. Significant anasarca to his extremities. OBJECTIVE: Vital Signs: Temperature 98.1 degrees, pulse rate 101, respiratory rate 12, blood pressure 114/56, O2 saturation 94% on mechanical ventilation and 80% oxygen flow, 0/10 pain. General: On physical examination, this is an ill-appearing gentleman on the ventilator, supine in the ICU bed. HEENT: Pupils are sluggish. Periorbital edema noted. Bloody sputum in his ET tube. Oral mucosa remains dry. Cardiovascular: S1, S2 noted. Tachycardic rate and rhythm. Respiratory: Coarse breath sounds throughout; diminished breath sounds. Extremities: Significant edema to all 4 extremities. Gastrointestinal: Abdomen is distended. He is leaking at his paracentesis site. LABORATORY: WBCs 13.3, hemoglobin 7.4, hematocrit 24.8, platelet count 40,000. Potassium 5.3, creatinine 3.2, calcium 8.4, phosphorus 6.0, total bilirubin 8.83, direct bilirubin 5.7. AST 464, ALT 195, alkaline phosphatase 176. RADIOLOGY: Chest x-ray: Dense consolidation/collapse of the right middle lobe. ASSESSMENT AND PLAN: 1. Acute hypercapnic and hypoxemic respiratory failure. The patient remains on full ventilator support. Continue management per medical hospitalist and tank refinisher. Continue to treat underlying infections. 2. Septic shock. The patient has multiple broad-spectrum antibiotics. Continue management per medical staff and Infectious Disease. 3. Bilateral lobe pneumonia secondary to oxacillin sensitive Staphylococcus aureus. The patient is being appropriately treated. Continue management. 4. Thrombocytopenia, multifactorial. This appears to be disseminated intravascular coagulation. Two units of fresh frozen plasma were infused last night. Continue to monitor. 5. Disseminated intravascular coagulation. We will continue to monitor. The patient appears to be bleeding from multiple sites. His platelets are dropping. He was given 2 units fresh frozen plasma last night. We will continue to monitor. 6. Multi organ failure. The patient's progress is very poor. He is a do not resuscitate. He continues to have multi organ failure. 7. Global encephalopathy. The patient has remained unresponsive despite being off any sedatives. Neurology is following. The family is aware of his poor prognosis. 8. Shock liver and hepatitis C. We are aware. Dictated by JEAN MARIE Almanzar for Freddie Galvan MD cc: Freddie Galvan MD
--- NOTE | 2019-10-15 14:41 | PROVIDER PROGRESS NOTE ---
Progress Note Dr. Robles Progress Note/Pulmonary and or critical care We appreciated progress of care, Complications, change in diagnosis, and instructions to patient. Subjective: We note the level of consciousness, bed (chair) position, family presence (if any), level of lethargy, feeling of symptoms, and changes from baseline condition/symptom. The patient is intubated. He remains unresponsive to painful stimuli. There is pink frothy drainage noted in the hose attaching to the ET tube. Dialysis. He is on Alec and Levophed drips. Patients mother at the bedside. Objective: Vital Signs: We reviewed EMR current values for Pulse rate, Blood pressure, Pulse rate, respiratory rate and Pulse oximetry. Also noted other values and trends if present (e.g. I/O, CVP). T SD , RR , BP and SaO2 on AC 18, 100%, 500, 8. Physical Examination: General: Lying in bed with no acute distress noted. [place] frothy drainage noted in the hose attaching to the ETT with pink foamy drainage in the mouth noted. HEENT: Normocephalic. Atraumatic. Mucus pink and moist. ET tube in place. Sluggish pupils. Chest: Mechanically ventilated. Symmetrical excursion. Coarse breathing sounds throughout with inspiratory and expiratory crackles bilaterally. CVS: Tachycardia. S1 and S2 appreciated. Abdomen: Soft. Non-distended. Edema. No bowel sounds noted in all 4 quadrants. Extremities: BLE chronic lymphedema with severe pitting edema 4+. BUE pitting edema 1-2+. Neuro: Unresponsive to painful stimuli. Management, face to face evaluation by Dr. Robles. JEAN MARIE did scribing only. Labs and Radiology: Reviewed available labs and radiology values available at time of EMR review. Laboratory Results 10/12/19 10/14/19 10/14/19 23:45 07:23 11:31 WBC RBC Hgb Hct MCV MCH MCHC RDW Std Deviation Plt Count MPV Immature Gran % (Auto) Neut % (Auto) Lymph % (Auto) Dodge % (Auto) Eos % (Auto) Baso % (Auto) Immature Gran # (Auto) Neut # (Auto) Lymph # (Auto) Dodge # (Auto) Eos # (Auto) Baso # (Auto) Segmented Neutrophils Lymphocytes Monocytes Nucleated RBCs Unidentified Cells Haptoglobin SEE COMMENTS PT INR PTT (Actin FS) Specimen Type Sample Site pH pCO2 pO2 HCO3 Base Excess Oxyhemoglobin ABG O2 Sat (Calculated) ABG O2 Saturation ABG Carboxyhemoglobin ABG Methemoglobin Aureliano Test A-a O2 Difference Total Hemoglobin Lactate Blood Gas Modality Vent Mode Spontaneous Rate FiO2 % Tidal Volume PEEP Sodium Potassium Chloride Carbon Dioxide Anion Gap BUN Creatinine Estimated GFR/1.73 m2 BUN/Creatinine Ratio Glucose POC Glucose 87 Calculated Osmolality Calcium Phosphorus Total Bilirubin Direct Bilirubin AST ALT Alkaline Phosphatase Total Protein Albumin Globulin Albumin/Globulin Ratio Procalcitonin SEE COMMENTS Blood Type Antibody Screen 10/14/19 10/14/19 10/14/19 16:48 20:39 21:13 WBC RBC Hgb Hct MCV MCH MCHC RDW Std Deviation Plt Count MPV Immature Gran % (Auto) Neut % (Auto) Lymph % (Auto) Dodge % (Auto) Eos % (Auto) Baso % (Auto) Immature Gran # (Auto) Neut # (Auto) Lymph # (Auto) Dodge # (Auto) Eos # (Auto) Baso # (Auto) Segmented Neutrophils Lymphocytes Monocytes Nucleated RBCs Unidentified Cells Haptoglobin PT INR PTT (Actin FS) Specimen Type Sample Site pH pCO2 pO2 HCO3 Base Excess Oxyhemoglobin ABG O2 Sat (Calculated) ABG O2 Saturation ABG Carboxyhemoglobin ABG Methemoglobin Aureliano Test A-a O2 Difference Total Hemoglobin Lactate Blood Gas Modality Vent Mode Spontaneous Rate FiO2 % Tidal Volume PEEP Sodium Potassium Chloride Carbon Dioxide Anion Gap BUN Creatinine Estimated GFR/1.73 m2 BUN/Creatinine Ratio Glucose POC Glucose 84 53 L 121 H D Calculated Osmolality Calcium Phosphorus Total Bilirubin Direct Bilirubin AST ALT Alkaline Phosphatase Total Protein Albumin Globulin Albumin/Globulin Ratio Procalcitonin Blood Type Antibody Screen 10/14/19 10/15/19 10/15/19 21:35 04:50 04:50 WBC RBC Hgb Hct MCV MCH MCHC RDW Std Deviation Plt Count MPV Immature Gran % (Auto) Neut % (Auto) Lymph % (Auto) Dodge % (Auto) Eos % (Auto) Baso % (Auto) Immature Gran # (Auto) Neut # (Auto) Lymph # (Auto) Dodge # (Auto) Eos # (Auto) Baso # (Auto) Segmented Neutrophils Lymphocytes Monocytes Nucleated RBCs Unidentified Cells Haptoglobin PT 27.0 H INR 2.42 PTT (Actin FS) Specimen Type Sample Site pH pCO2 pO2 HCO3 Base Excess Oxyhemoglobin ABG O2 Sat (Calculated) ABG O2 Saturation ABG Carboxyhemoglobin ABG Methemoglobin Aureliano Test A-a O2 Difference Total Hemoglobin Lactate Blood Gas Modality Vent Mode Spontaneous Rate FiO2 % Tidal Volume PEEP Sodium 140 Potassium 5.3 H Chloride 106 Carbon Dioxide 20 L Anion Gap 14 BUN 23 H Creatinine 3.2 H Estimated GFR/1.73 m2 24 BUN/Creatinine Ratio 7 Glucose 69 L POC Glucose Calculated Osmolality 281 Calcium 8.4 L D Phosphorus 6.0 H Total Bilirubin 8.83 H Direct Bilirubin 5.70 H AST 464 H ALT 195 H Alkaline Phosphatase 176 H Total Protein 5.5 L Albumin 3.1 L Globulin 2.4 Albumin/Globulin Ratio 1.3 Procalcitonin Blood Type O POSITIVE Antibody Screen NEGATIVE 10/15/19 10/15/19 10/15/19 04:50 05:02 06:08 WBC 13.30 H RBC 2.61 L Hgb 7.4 L Hct 24.8 L MCV 95.0 MCH 28.4 MCHC 29.8 L RDW Std Deviation 20.4 H Plt Count 40 L MPV 11.6 H Immature Gran % (Auto) 0.5 Neut % (Auto) 75.0 Lymph % (Auto) 16.3 L Dodge % (Auto) 7.9 Eos % (Auto) 0.1 Baso % (Auto) 0.2 Immature Gran # (Auto) 0.07 H Neut # (Auto) 9.98 H Lymph # (Auto) 2.17 Dodge # (Auto) 1.05 H Eos # (Auto) 0.01 Baso # (Auto) 0.02 Segmented Neutrophils 86 H Lymphocytes 8 L Monocytes 2 Nucleated RBCs 3 H Unidentified Cells 4.0 Haptoglobin PT INR PTT (Actin FS) Specimen Type ARTERIAL Sample Site R RADIAL pH 7.16 L* pCO2 55 H* pO2 55 L HCO3 17.8 L Base Excess -8.9 L Oxyhemoglobin 87.0 L* ABG O2 Sat (Calculated) 11.7 L ABG O2 Saturation 90.4 L ABG Carboxyhemoglobin 3.80 H ABG Methemoglobin 0.0 Aureliano Test YES A-a O2 Difference 447.0 Total Hemoglobin 9.5 L Lactate 5.30 H* Blood Gas Modality VENTILATOR Vent Mode A/C Spontaneous Rate 18 FiO2 % 80.0 Tidal Volume 550 PEEP 8.0 Sodium Potassium Chloride Carbon Dioxide Anion Gap BUN Creatinine Estimated GFR/1.73 m2 BUN/Creatinine Ratio Glucose POC Glucose 63 L Calculated Osmolality Calcium Phosphorus Total Bilirubin Direct Bilirubin AST ALT Alkaline Phosphatase Total Protein Albumin Globulin Albumin/Globulin Ratio Procalcitonin Blood Type Antibody Screen 10/15/19 10/15/19 10/15/19 06:33 09:00 10:14 WBC RBC Hgb Hct MCV MCH MCHC RDW Std Deviation Plt Count MPV Immature Gran % (Auto) Neut % (Auto) Lymph % (Auto) [place] % (Auto) Eos % (Auto) Baso % (Auto) Immature Gran # (Auto) Neut # (Auto) Lymph # (Auto) [place] # (Auto) Eos # (Auto) Baso # (Auto) Segmented Neutrophils Lymphocytes Monocytes Nucleated RBCs Unidentified Cells Haptoglobin PT INR PTT (Actin FS) 47.9 H Specimen Type Sample Site pH pCO2 pO2 HCO3 Base Excess Oxyhemoglobin ABG O2 Sat (Calculated) ABG O2 Saturation ABG Carboxyhemoglobin ABG Methemoglobin Aureliano Test A-a O2 Difference Total Hemoglobin Lactate Blood Gas Modality Vent Mode Spontaneous Rate FiO2 % Tidal Volume PEEP Sodium Potassium Chloride Carbon Dioxide Anion Gap BUN Creatinine Estimated GFR/1.73 m2 BUN/Creatinine Ratio Glucose POC Glucose 91 76 Calculated Osmolality Calcium Phosphorus Total Bilirubin Direct Bilirubin AST ALT Alkaline Phosphatase Total Protein Albumin Globulin Albumin/Globulin Ratio Procalcitonin Blood Type Antibody Screen Assessment: Acute respiratory failure. Intubated on 10/10/19. Septic shock likely secondary to acute colitis vs. spontaneous bacterial peritonitis. Pneumonia. Sputum culture on 10/10/19 grows gram positive cocci today. Hypovolemic shock. Acute kidney injury. Transaminitis. Hypothermia. Liver cirrhosis with history of hepatitis C. Multiple organ failure with high mortality and morbidity possibility. Plan: Continue current treatment and supportive care per admitting and other teams on the case. Ventilation checked and titrated to the patients needs for clinical protocols with close monitoring. Sedation with prn morphine and prn Ativan titrated to the patients needs per clinical protocols with closely monitoring. Pressors titrated to the patients needs per clinical protocols with closely monitoring. Antibiotic (Vancomycin and Zosyn), bronchodilators and IV Solu-Cortef. Input was appreciated from Admitting MD and other teams on the case. Evaluation time in minutes: minutes.
[2019-10-15] MEDS ORDERED: VANCOMYCIN IV PER PHARMACY MISC SCH (15:00)
--- NOTE | 2019-10-15 15:57 | INFECTIOUS DISEASE PROGRESS NO ---
DATE: 10/15/2019 HISTORY OF PRESENT ILLNESS: The patient has pneumonia, peritonitis, and hepatitis C. The patient had leukocytosis and it has come down since the patient was put on for since from when the patient was put on micafungin. MEDICATIONS: This is the 5th day of treatment with vancomycin and Zosyn, and day 2 of treatment with micafungin. PHYSICAL EXAMINATION: Vital Signs: Temperature is 98 degrees, pulse 101, respirations 21, blood pressure 114/56. General: This is an ill-appearing, middle-aged male. He is intubated and sedated. Head/eyes/ears/nose/throat: Patient has an orogastric an orotracheal tube in place. There is no drainage from the nose or the ears. Neck: No apparent pain with passive movement of the neck. Lungs: Bilateral rhonchi. Cardiovascular: Heart rate is regular. Abdomen: Protuberant. It is soft, does not appear to be tender. The patient has an ostomy bag where ascites is draining from the abdomen. In both groin areas the patient has IV catheters. Both sites are not bleeding or purulent. Neurologic: The patient is obtunded. He did not respond to verbal stimuli. Extremities: The patient has bilateral edema and peau d'orange skin. LAB AND X-RAY STUDIES: Chest x-ray shows bilateral infiltrates with possible right middle lobe collapse. Sputum grew an oxacillin sensitive Staphylococcus aureus. Bilirubin is 8.83, AST is 464. CBC shows a white count of 13,300, hemoglobin 7.4, and platelet count 40,000. Blood gases show a pH of 7.16, a pO2 of 55, and a pCO2 of 55. Creatinine is 3.2, GFR is 24. ASSESSMENT AND PLAN: The patient has pneumonia, peritonitis, and hepatitis C. I am going to continue Zosyn and micafungin, but stop vancomycin since the patient's Staphylococcus aureus in his sputum is oxacillin sensitive. COMORBIDITIES: Cirrhosis of the liver due to hepatitis C, psoriasis, chronic kidney disease--the patient is on dialysis. Also, he is a cigarette smoker, and he has chronic leg edema also. cc: Clemente Vivas MD
[2019-10-15] MEDS ORDERED: VANCOMYCIN 1,500 MG in NS 250 ML IV ONE (18:00)
--- NOTE | 2019-10-15 18:17 | NEPHROLOGY PROGRESS NOTE ---
DATE: 10/15/2019 SUBJECTIVE: Mr. Moralez is unresponsive. OBJECTIVE: Blood pressure 114/56, heart rate 101, respirations 20, afebrile. Intake 3.1 L, output 4.2 L. General: Unchanged, unresponsive. Skin: Jaundiced. Pupils are equal, sluggish. Oropharynx is dry. Neck veins are distended. Trachea is midline. Heart: Regular and tachycardic with a gallop. Lungs: Equal with diffuse crackles. Abdomen: Tense and quiet. Extremities: Edema 4+. IMPRESSION/PLAN: Acute kidney injury. Ischemic acute tubular necrosis secondary to sepsis. Electrolytes and acid-base status are improved with dialysis. Hemodynamics are improved as well. Remains grossly volume overloaded. Continue SLED today with a 3K bath, 30 bicarbonate, 8-hour treatment, and goal of 4-6 L ultrafiltration. cc: Magdiel Ramirez MD
--- NOTE | 2019-10-15 19:31 | PROGRESS NOTE ---
DATE: 10/15/2019 SUBJECTIVE: The patient remains unresponsive on the ventilator. He is on Alec- Synephrine and Levophed. OBJECTIVE: Vital Signs: Temperature 97.3 degrees, blood pressure 112/52, heart rate 97, respirations 23, O2 saturation is 97% on mechanical ventilator. General: This is a chronically ill-appearing, elderly male, unresponsive, on the ventilator. Skin: The patient has skin tears on his thighs. Heart: S1, S2 normal. Tachycardic. Lungs: Coarse breath sounds bilaterally. Abdomen: Distended. Hypoactive bowel sounds. Extremities: Anasarca involving the arms, legs, groin. The patient has severe penile and scrotal edema. Neurologic: The patient is unresponsive. LABORATORY AND DIAGNOSTIC DATA: White blood cell count 13, hemoglobin 7.4, hematocrit 24, platelets 40,000. INR 2.4. ABG, pH of 7.16, pCO2 of 55, PO2 of 55, bicarbonate 17. Sodium 140, potassium 5.3, chloride 106, CO2 of 20, BUN 23, creatinine 3.2, glucose 69. Total bilirubin 8.8, direct bilirubin 5.7, AST 464, ALT 195, alkaline phosphatase 174. Chest x-ray reveals dense consolidation and collapse of the right middle lobe. Severe bilateral infiltrates. ASSESSMENT AND PLAN: 1. Acute hypercapnic and hypoxemic respiratory failure. Multifactorial. Continue with ventilatory management as directed by the certified caregiver. 2. Septic shock. Continue on the current treatment regimen. The patient remains on broad- spectrum antibiotics and antifungal treatment as well as pressor support. 3. Bilateral lobe pneumonia secondary to oxacillin-sensitive Staphylococcus aureus. Continue with antibiotic therapy as directed by Dr. Vivas. 4. Volume overload. This is being addressed during the patient's SLED sessions. 5. Acute kidney injury with anuria. Multifactorial. Continue with SLED treatments. 6. Global encephalopathy. Unchanged. The patient remains unresponsive on the ventilator. 7. Disseminated intravascular coagulation. The patient received 2 units of FFP last night. Continue to monitor closely and transfuse as necessary. 8. Coagulopathy. Slightly improved today. The patient received vitamin K yesterday. 9. Shock liver. Slightly improved. 10. Hepatitis C. Aware. 11. Possible gastrointestinal bleed. The patient is on IV Protonix. Management as per GI. 12. Thrombocytopenia. Continue to monitor closely. The patient is being treated for DIC. 13. Disposition. The patient remains critically ill with a high risk of mortality. The patient is a DNR level 2. cc: Stephany Cowan MD MTDD
--- NOTE | 2019-10-15 19:34 | NEUROLOGY PROGRESS NOTE ---
DATE: 10/15/2019 OBJECTIVE: Mr. Moralez continues unresponsive. There is slow, but definite lateral eye movement with passive head turning. Corneal reflex is more brisk on the left than the right, but present bilaterally. There is anisocoria with right pupil near 6 mm and left pupil about 4 mm. I did not see pupil reaction to bright light bilaterally. Limb tone remains flaccid symmetrically. He did not alert to name calling or gentle shoulder rub. IMPRESSION/PLAN: Continues global encephalopathy, nothing new of substance, but possibility that there is some clinical evidence now of brainstem dysfunction. I do not think we need any urgent workup. Brain imaging would be interesting when practical, but likely would not traveler changer or provide information that we could use now to alter his clinical course. cc: MD ASHLI Nowak III
--- NOTE | 2019-10-15 19:38 | GASTROENTEROLOGY PROGRESS NOTE ---
DATE: 10/15/2019 SUBJECTIVE: Patient remains on mechanical ventilation and vasopressors his currently receiving SLED dialysis. OBJECTIVE: Vital signs: Temperature 97.3 degrees, pulse 97, respirations 23, blood pressure 112/52.General: The patient is intubated on mechanical ventilation. He is not responsive at present time. He does not have the sedation on board. The patient is being followed by neurology. Abdomen: Distended. Some bloody leakage coming from paracentesis site. They have an ostomy bag in place with some small amount of bloody drainage noted. He has NG tube to low intermittent suction. Some rust colored drainage noted in the tube. LABORATORY: Hematology: WBC 13.30 hemoglobin 7.4, hematocrit 24.8, MCV 95.0. Coagulation: ProTime 27.0 INR 2.42 PTT 47.9. Chemistry: Sodium 140, potassium 5.3, chloride 106, CO2 20 BUN 23, creatinine 3.2, glucose 69, calcium 8.4, total bilirubin 8.83, AST 464.8, ALT 195, alkaline phosphatase 176. ASSESSMENT AND PLAN: 1. Acute respiratory failure. Patient is on mechanical ventilation. Continue current management. 2. Sepsis shock. Patient is on antibiotics. 3. Pneumonia. Continue current management. 4. Thrombocytopenia, disseminated intravascular coagulation. Patient is being followed by Hematology continue recommendation patient has had 2 units of fresh frozen plasma. 5. Encephalopathy. Patient has been seen by neurology. Continue current management. 6. Hepatitis C, shock liver. Bilirubin is slightly worse today but other liver function tests have improved slightly. Will continue to monitor. Further plans to be made according to his progress. I have discussed this case with Dr. Wheeler. Dictated by JEAN MARIE Chairez for Geronimo Wheeler MD cc: JEAN MARIE Smart MD
[2019-10-15] MEDS: MORPHINE IV PRN (20:26)
--- NOTE | 2019-10-15 20:52 | INFECTIOUS DISEASE PROGRESS NO ---
DATE: 10/15/2019 PRESENT ILLNESS: Patient has pneumonia, peritonitis and cirrhosis of the liver due to hepatitis C. MEDICATIONS: This is day 5 of treatment with Zosyn and vancomycin and day 2 of treatment with micafungin. The patient also is getting intravenous steroids. PHYSICAL EXAMINATION: Vital Signs: Temperature is 97.3 degrees, pulse 97, respirations 23, blood pressure 112/52. General: This is an ill-appearing, middle-aged male, he is intubated and he is on a respirator. Head/eyes/ears/nose/throat: He has an orogastric tube and an orotracheal tube in place. There is no drainage from the nose or ears. Neck: No stiffness. Lungs: Bilateral rhonchi. Cardiovascular: Heart rate is regular. Abdomen: Protuberant. There is an ostomy bag collecting all the ascites from the patient's abdomen. In both groin areas the patient has IV catheters. At the site there is no purulence or bleeding. Neurologic: The patient is obtunded. He did not respond to verbal stimuli. Extremities: Both legs are edematous and have peau d'orange skin. LAB AND X-RAY STUDIES: Chest x-ray shows diffuse infiltrates and collapse of the right middle lobe. The patient's procalcitonin is 6.3, which means he is very likely to have pneumonia. A CBC shows a white count of 13,300, hemoglobin 7.4, and platelet count 40,000. Blood gases show a pH of 7.16, a pO2 of 55, and a pCO2 of 55. Creatinine is 3.2, GFR is 24. ASSESSMENT AND PLAN: Patient has pneumonia, peritonitis, and hepatitis C. My plan is to continue vancomycin, Zosyn and micafungin. COMORBIDITIES: The patient has cirrhosis of the liver due to hepatitis C, he also has psoriasis, chronic kidney disease, and he smokes cigarettes. He also has chronic bilateral edema. cc: Clemente Vivas MD
[2019-10-16] MEDS: MORPHINE IV PRN (02:15)
[2019-10-16] MEDS: NEO-SYNEPHRINE 100 MG in NS 250 ML IV SCH ×5 (02:16→22:47)
[2019-10-16] MEDS: ZOSYN 2.25 GM in NS 50 ML IV SCH ×3 (02:16→18:29)
[2019-10-16] MEDS: ATROVENT NEB INH SCH ×6 (03:30→23:25)
[2019-10-16] MEDS: XOPENEX NEB INH SCH ×6 (03:30→23:25)
[2019-10-16] MEDS: ATIVAN IV PRN (03:57)
[2019-10-16] MEDS: SODIUM CHLORIDE 0.9% INJ SCH (03:57)
[2019-10-16] MEDS: PROTONIX IV SCH ×2 (03:57→16:26)
[2019-10-16] MEDS: SOLU-CORTEF IV SCH ×4 (03:57→23:00)
[2019-10-16 05:37] LABS: ALLEN TEST YES; BE -6.6 mmoll (-3.0-3.0); BLOOD TYPE ARTERIAL; HCO3-(ACT) 19.8 mmoll (20.0-26.0); METHB 0.6 % (0.0-1.5); O2(CT) 12.1 mL/dL (15.0-23.0); O2HB 96.4 % (95.0-99.0); PCO2(98.6) 38 mmHg (35-45); PO2(98.6) 85 mmHg (60-100); SAMPLE BLOOD; SAO2 99.6 % (95.0-100.0); SRATE 18 BPM; THB 8.8 g/dL (11.5-17.4); TVOL 550 mL; pH(98.6) 7.31 (7.35-7.45)
[2019-10-16 05:38] LABS: MODALITY VENTILATOR
[2019-10-16] MEDS: D50W SYRINGE IV PRN ×2 (06:28→17:00)
[2019-10-16 06:50] LABS: BASO# 0.14 X1000 (0.0-0.2); BASO% 1.1 % (0.0-0.8); EOS# 0.03 X1000 (0.0-0.7); EOS% 0.2 % (0.0-10.0); HEMATOCRIT 26.2 % (42.0-52.0); HEMOGLOBIN 8.2 g/dL (14.0-18.0); IMM GRAN# 0.24 X1000 (0.0-0.04); IMM GRAN% 1.8 % (0.0-0.5); LYMPH# 3.93 X1000 (1.2-3.4); LYMPH% 30.3 % (20.5-51.1); MCH 29.4 PG (27-31); MCHC 31.3 g/dL (33-37); MCV 93.9 FL (81-99); MONO# 1.03 X1000 (0.11-0.59); MONO% 7.9 % (1.7-9.3); NEUT# 7.62 X1000 (1.4-6.5); NEUT% 58.7 % (42.2-75.2); RBC 2.79 XMIL (4.7-6.1); RDW 20.3 % (11.5-14.5); WBC 12.99 X1000 (4.8-10.8)
[2019-10-16] MEDS ORDERED: NS 2,000 ML MISC PRN (06:52)
[2019-10-16 07:01] LABS: ALB/GLOB RATIO 1.2; CALCIUM 8.8 mg/dL (8.8-10.2); CREATININE 2.6 mg/dL (0.7-1.2); DIRECT BILIRUBIN 7.7 mg/dL (0.00-0.20); PHOSPHORUS 4.1 mg/dL (2.7-4.5); POTASSIUM 4.8 mmol/L (3.5-5.1); TOTAL BILIRUBIN 11.4 mg/dL (0.20-1.00); TOTAL PROTEIN 5.5 g/dL (6.3-8.3)
[2019-10-16 07:02] LABS: INR 2.77
[2019-10-16 07:05] LABS: PLT 25 X1000 (130-400)
--- NOTE | 2019-10-16 07:08 | Diag Imaging Result Doc PS360 ---
EXAM: ABDOMEN FLAT/UPRIGHT HISTORY: abdominal distention TECHNIQUE: Two views COMPARISON: 10/11/2019 FINDINGS: There is a nasogastric tube in stomach no free air beneath the diaphragm. No organomegaly. No bowel obstruction. Catheters overlie the pelvis. Prior surgery to the lumbar spine. Dense basilar lung infiltrates. IMPRESSION: No acute abdominal abnormality identified. Electronically signed by Kiran Lizarraga 10/16/2019 7:05 AM
[2019-10-16 08:28] LABS: LYMPHS 20 % (21-51); MONO 10 % (1-9); NRBC 3 % (0-0); SEGS 70 % (42-75)
[2019-10-16 08:29] LABS: ANISOCYTOSIS OCCASIONAL
[2019-10-16] MEDS: MYCAMINE 100 MG in NS 100 ML IV SCH (08:51)
[2019-10-16] MEDS: DULCOLAX PR SCH ×2 (10:30→21:39)
[2019-10-16] MEDS: LEVOPHED 16 MG in D5 1/2 NS 250 ML IV SCH (14:23)
[2019-10-16] MEDS ORDERED: VANCOMYCIN 1 GM/NS 1 GM/250 ML IVPB IV ONE (16:00)
--- NOTE | 2019-10-16 16:29 | PROVIDER PROGRESS NOTE ---
Progress Note Progress Note Dr. Robles Progress Note/Pulmonary and or critical care We appreciated progress of care, Complications, change in diagnosis, and instructions to patient. Subjective: We note the level of consciousness, bed (chair) position, family presence (if any), level of lethargy, feeling of symptoms, and changes from baseline condition/symptom. The patient is intubated. He remains unresponsive to painful stimuli. He has been on SLEDD per Dr. Ramirez for 1.5 hours with 6.5 hours remained. He is on maximum amount of Alec, Levophed now off. Patients mother at the bedside. Objective: Vital Signs: We reviewed EMR current values for Pulse rate, Blood pressure, Pulse rate, respiratory rate and Pulse oximetry. Also noted other values and trends if present (e.g. I/O, CVP). T 98.4 , FL 103 , RR 22 , BP 109/57 and SaO2 99 on AC 18,70.0, 550, 8. Physical Examination: General: Lying in bed with no acute distress noted. HEENT: Normocephalic. Atraumatic. Mucus pink and moist. ET tube in place. Sluggish pupils. Chest: Mechanically ventilated. Symmetrical excursion. Coarse breathing sounds throughout with inspiratory and expiratory crackles bilaterally. CVS: Tachycardia. S1 and S2 appreciated. Abdomen: Soft. Non-distended. Edema. No bowel sounds noted in all 4 quadrants. Extremities: BLE chronic lymphedema with severe pitting edema 4+. BUE pitting edema 1-2+. Neuro: Unresponsive to painful stimuli. Management, face to face evaluation by Dr. Robles. JEAN MARIE Patel did scribing only. Labs and Radiology: Reviewed available labs and radiology values available at time of EMR review. Laboratory Results 10/15/19 10/15/19 10/16/19 20:35 23:24 04:30 WBC RBC Hgb Hct MCV MCH MCHC RDW Std Deviation Plt Count MPV Immature Gran % (Auto) Neut % (Auto) Lymph % (Auto) [place] % (Auto) Eos % (Auto) Baso % (Auto) Immature Gran # (Auto) Neut # (Auto) Lymph # (Auto) [place] # (Auto) Eos # (Auto) Baso # (Auto) Segmented Neutrophils Lymphocytes Monocytes Nucleated RBCs Pathologist Review Anisocytosis PT INR PTT (Actin FS) Specimen Type Sample Site pH pCO2 pO2 HCO3 Base Excess Oxyhemoglobin ABG O2 Sat (Calculated) ABG O2 Saturation ABG Carboxyhemoglobin ABG Methemoglobin Aureliano Test A-a O2 Difference Total Hemoglobin Lactate Blood Gas Modality Vent Mode Spontaneous Rate FiO2 % Tidal Volume PEEP Sodium 141 Potassium 4.8 Chloride 108 H Carbon Dioxide 19 L Anion Gap 14 BUN 21 Creatinine 2.6 H Estimated GFR/1.73 m2 31 BUN/Creatinine Ratio 8 Glucose 68 L POC Glucose 73 92 Calculated Osmolality 283 Calcium 8.8 Phosphorus 4.1 Total Bilirubin 11.40 H Direct Bilirubin 7.70 H AST 323 H ALT 170 H Alkaline Phosphatase 180 H Total Protein 5.5 L Albumin 3.0 L Globulin 2.5 Albumin/Globulin Ratio 1.2 10/16/19 10/16/19 10/16/19 04:30 04:30 04:30 WBC 12.99 H RBC 2.79 L Hgb 8.2 L Hct 26.2 L MCV 93.9 MCH 29.4 MCHC 31.3 L RDW Std Deviation 20.3 H Plt Count 25 L* D MPV Not Reportable Immature Gran % (Auto) 1.8 H Neut % (Auto) 58.7 Lymph % (Auto) 30.3 [place] % (Auto) 7.9 Eos % (Auto) 0.2 Baso % (Auto) 1.1 H Immature Gran # (Auto) 0.24 H Neut # (Auto) 7.62 H Lymph # (Auto) 3.93 H [place] # (Auto) 1.03 H Eos # (Auto) 0.03 Baso # (Auto) 0.14 Segmented Neutrophils 70 Lymphocytes 20 L Monocytes 10 H Nucleated RBCs 3 H Pathologist Review Anisocytosis OCCASIONAL PT 30.0 H INR 2.77 PTT (Actin FS) 49.0 H Specimen Type Sample Site pH pCO2 pO2 HCO3 Base Excess Oxyhemoglobin ABG O2 Sat (Calculated) ABG O2 Saturation ABG Carboxyhemoglobin ABG Methemoglobin Aureliano Test A-a O2 Difference Total Hemoglobin Lactate Blood Gas Modality Vent Mode Spontaneous Rate FiO2 % Tidal Volume PEEP Sodium Potassium Chloride Carbon Dioxide Anion Gap BUN Creatinine Estimated GFR/1.73 m2 BUN/Creatinine Ratio Glucose POC Glucose Calculated Osmolality Calcium Phosphorus Total Bilirubin Direct Bilirubin AST ALT Alkaline Phosphatase Total Protein Albumin Globulin Albumin/Globulin Ratio 10/16/19 10/16/19 10/16/19 04:45 06:20 06:50 WBC RBC Hgb Hct MCV MCH MCHC RDW Std Deviation Plt Count MPV Immature Gran % (Auto) Neut % (Auto) Lymph % (Auto) [place] % (Auto) Eos % (Auto) Baso % (Auto) Immature Gran # (Auto) Neut # (Auto) Lymph # (Auto) [place] # (Auto) Eos # (Auto) Baso # (Auto) Segmented Neutrophils Lymphocytes Monocytes Nucleated RBCs Pathologist Review Anisocytosis PT INR PTT (Actin FS) Specimen Type ARTERIAL Sample Site R RADIAL pH 7.31 L pCO2 38 pO2 85 HCO3 19.8 L Base Excess -6.6 L Oxyhemoglobin 96.4 ABG O2 Sat (Calculated) 12.1 L ABG O2 Saturation 99.6 ABG Carboxyhemoglobin 2.70 H ABG Methemoglobin 0.6 Aureliano Test YES A-a O2 Difference 367.0 Total Hemoglobin 8.8 L Lactate 4.40 H* Blood Gas Modality VENTILATOR Vent Mode A/C Spontaneous Rate 18 FiO2 % 70.0 Tidal Volume 550 PEEP 8.0 Sodium Potassium Chloride Carbon Dioxide Anion Gap BUN Creatinine Estimated GFR/1.73 m2 BUN/Creatinine Ratio Glucose POC Glucose 64 L 129 H D Calculated Osmolality Calcium Phosphorus Total Bilirubin Direct Bilirubin AST ALT Alkaline Phosphatase Total Protein Albumin Globulin Albumin/Globulin Ratio 10/16/19 10/16/19 11:51 15:56 WBC RBC Hgb Hct MCV MCH MCHC RDW Std Deviation Plt Count MPV Immature Gran % (Auto) Neut % (Auto) Lymph % (Auto) [place] % (Auto) Eos % (Auto) Baso % (Auto) Immature Gran # (Auto) Neut # (Auto) Lymph # (Auto) [place] # (Auto) Eos # (Auto) Baso # (Auto) Segmented Neutrophils Lymphocytes Monocytes Nucleated RBCs Pathologist Review Anisocytosis PT INR PTT (Actin FS) Specimen Type Sample Site pH pCO2 pO2 HCO3 Base Excess Oxyhemoglobin ABG O2 Sat (Calculated) ABG O2 Saturation ABG Carboxyhemoglobin ABG Methemoglobin Aureliano Test A-a O2 Difference Total Hemoglobin Lactate Blood Gas Modality Vent Mode Spontaneous Rate FiO2 % Tidal Volume PEEP Sodium Potassium Chloride Carbon Dioxide Anion Gap BUN Creatinine Estimated GFR/1.73 m2 BUN/Creatinine Ratio Glucose POC Glucose 74 64 L Calculated Osmolality Calcium Phosphorus Total Bilirubin Direct Bilirubin AST ALT Alkaline Phosphatase Total Protein Albumin Globulin Albumin/Globulin Ratio Assessment: Acute respiratory failure. Intubated on 10/10/19. Septic shock likely secondary to acute colitis vs. spontaneous bacterial peritonitis. Pneumonia. Sputum culture on 10/10/19 grows gram positive cocci today. Hypovolemic shock. Acute kidney injury. Transaminitis. Hypothermia. Liver cirrhosis with history of hepatitis C. Multiple organ failure with high mortality and morbidity possibility. Plan: Continue current treatment and supportive care per admitting and other teams on the case. Ventilation checked and titrated to the patients needs for clinical protocols with close monitoring. Sedation with prn morphine and prn Ativan titrated to the patients needs per clinical protocols with closely monitoring. Pressors titrated to the patients needs per clinical protocols with closely monitoring. Antibiotic (Vancomycin and Zosyn), bronchodilators and IV Solu-Cortef. Input was appreciated from Admitting MD and other teams on the case. Evaluation time in minutes: 35 minutes.
[2019-10-16] MEDS ORDERED: VANCOMYCIN 1 GM/NS 1 GM/250 ML IVPB IV SCH (18:00)
--- NOTE | 2019-10-16 21:29 | PROGRESS NOTE ---
DATE: 10/16/2019 SUBJECTIVE: The patient is currently unresponsive on the ventilator. He is on a Alec-Synephrine drip and is currently undergoing SLED. OBJECTIVE: Vital signs: T-max 98.1 degrees, blood pressure 93/52, heart rate 103, respirations 23, O2 saturation is 95% on mechanical ventilator. General: This is a chronically ill-appearing, unresponsive elderly male on the ventilator. Skin: The patient has skin tears on his legs and arms. Heart: S1, S2 normal. Tachycardic. Lungs: Coarse breath sounds bilaterally. Abdomen distended. Hypoactive bowel sounds. Groin: The patient has extreme scrotal and penile edema. Extremities: The patient has anasarca involving the legs and arms. Neurologic: The patient is unresponsive. LABORATORY DATA: White blood cell count 12, hemoglobin 8.2, hematocrit 26, platelets 25,000. Sodium 141, potassium 4.8, chloride 108, CO2 is 19, BUN 21, creatinine 2.6, glucose 68, total bilirubin 11, AST 323, ALT 170, alkaline phosphatase 180, albumin 3. INR 2.7. DIAGNOSTIC DATA: Abdominal x-ray shows no acute abnormality. ASSESSMENT AND PLAN: 1. Acute hypercapnic and hypoxemic respiratory failure. Multifactorial. The patient remains unresponsive and ventilator-dependent. Continue with management as directed by the driver license agent. 2. Septic shock. The patient continues to require pressor support. Continue with broad-spectrum antibiotics and antifungal treatment. 3. Bilateral lobe pneumonia secondary to oxacillin-sensitive Staphylococcus aureus. Continue with antibiotic therapy as directed by Dr. Vivas. 4. Volume overload. This is being addressed during the patient's sustained low- efficiency dialysis sessions. 5. Acute kidney injury with anuria. Multifactorial. The patient is currently undergoing sustained low-efficiency dialysis. The patient's BUN and creatinine are improved; however, the patient is still not making urine. 6. Global encephalopathy. Unchanged. Continue to monitor closely for improvement. 7. Disseminated intravascular coagulation. Aware. We will continue to monitor closely. Hematology is following. The patient received 2 units of fresh frozen plasma on night. 8. Shock liver. Slowly improving. The liver function tests are slightly improved today. 9. Hepatitis C. Aware. 10. Thrombocytopenia. Worse today. The patient will likely require platelets tomorrow. 11. Possible gastrointestinal bleed. The patient is on intravenous Protonix. 12. Disposition. The patient is in multiorgan failure. He remains critically ill with a high risk of mortality. The patient is a Do Not Resuscitate/Allow Natural level 2. cc: Stephany Cowan MD MTDD
--- NOTE | 2019-10-16 23:50 | NEPHROLOGY PROGRESS NOTE ---
DATE: 10/16/2019 SUBJECTIVE: He is currently on SLED. Mental status unchanged. OBJECTIVE: Blood pressure 89/58, heart rate 72, respirations 24, afebrile. Intake 1.8 L, output 6.5 L. Generally no acute distress. Skin is warm and dry. Neck veins are distended. Heart is regular. Lungs are equal. Abdomen distended. Extremities, 3+ edema. IMPRESSION: Acute kidney injury. No recovery. Modest metabolic acidosis. Still with severe volume overload. Sustained low-efficiency dialysis (SLED) today using a 4K bath, 30 bicarbonate, 6 L ultrafiltration goal. cc: Magdiel Ramirez MD
[2019-10-17] MEDS: ZOSYN 2.25 GM in NS 50 ML IV SCH ×3 (01:52→17:26)
[2019-10-17] MEDS: XOPENEX NEB INH SCH ×6 (03:40→23:12)
[2019-10-17] MEDS: ATROVENT NEB INH SCH ×6 (03:40→23:12)
[2019-10-17] MEDS: NEO-SYNEPHRINE 100 MG in NS 250 ML IV SCH ×2 (04:08→11:02)
[2019-10-17] MEDS: SOLU-CORTEF IV SCH ×4 (04:08→21:55)
[2019-10-17] MEDS: PROTONIX IV SCH ×2 (04:08→17:00)
[2019-10-17 05:49] LABS: ALLEN TEST YES; BE -6.2 mmoll (-3.0-3.0); BLOOD TYPE ARTERIAL; HCO3-(ACT) 20.1 mmoll (20.0-26.0); O2HB 97.1 % (95.0-99.0); PCO2(98.6) 35 mmHg (35-45); PO2(98.6) 155 mmHg (60-100); SAMPLE BLOOD; SAO2 100.4 % (95.0-100.0); SRATE 18 BPM; THB 9.3 g/dL (11.5-17.4); TVOL 550 mL; pH(98.6) 7.34 (7.35-7.45)
[2019-10-17 05:50] LABS: MODALITY VENTILATOR
[2019-10-17 06:13] LABS: INR 3.38; PROTIME 35.3 Seconds (11.0-16.0)
[2019-10-17] MEDS: D50W SYRINGE IV PRN (06:24)
[2019-10-17 06:31] LABS: BASO# 0.11 X1000 (0.0-0.2); BASO% 0.6 % (0.0-0.8); EOS# 0.04 X1000 (0.0-0.7); EOS% 0.2 % (0.0-10.0); HEMATOCRIT 26.4 % (42.0-52.0); HEMOGLOBIN 8.3 g/dL (14.0-18.0); IMM GRAN# 0.32 X1000 (0.0-0.04); IMM GRAN% 1.8 % (0.0-0.5); LYMPH# 6.42 X1000 (1.2-3.4); LYMPH% 36.7 % (20.5-51.1); MCH 29.3 PG (27-31); MCHC 31.4 g/dL (33-37); MCV 93.3 FL (81-99); MONO# 0.82 X1000 (0.11-0.59); MONO% 4.7 % (1.7-9.3); MPV 11.3 FL (7.4-10.4); NEUT# 9.76 X1000 (1.4-6.5); RBC 2.83 XMIL (4.7-6.1); RDW 20.3 % (11.5-14.5); WBC 17.47 X1000 (4.8-10.8)
[2019-10-17 06:33] LABS: ALBUMIN 2.8 g/dL (3.5-5.0); CALCIUM 9.3 mg/dL (8.8-10.2); CREATININE 2.4 mg/dL (0.7-1.2); PHOSPHORUS 3.9 mg/dL (2.7-4.5); POTASSIUM 4.4 mmol/L (3.5-5.1)
[2019-10-17 06:36] LABS: ALBUMIN 2.8 g/dL (3.5-5.0); DIRECT BILIRUBIN 9.2 mg/dL (0.00-0.20); TOTAL BILIRUBIN 13.15 mg/dL (0.20-1.00); TOTAL PROTEIN 5.7 g/dL (6.3-8.3)
[2019-10-17 06:55] LABS: PLT 27 X1000 (130-400)
[2019-10-17] MEDS ORDERED: NS 500 ML IV ONE (06:57)
--- NOTE | 2019-10-17 08:16 | Diag Imaging Result Doc PS360 ---
EXAM: CHEST-PORTABLE 10/17/2019 HISTORY: pneumonia TECHNIQUE: AP portable at [id number] COMMENT: There is an endotracheal tube with its tip at thoracic inlet. There is alveolar opacity bilaterally. The inspiration is less optimal than on 10/15/2019 however the pulmonary opacities are slightly improved particularly over the right upper and lower lobes. The right hemidiaphragm is now partially visible. There is an NG tube with its tip below the diaphragm. IMPRESSION: Improved pneumonia and/or pulmonary edema. Electronically signed by Triston Hurley 10/17/2019 8:14 AM
[2019-10-17] MEDS: MYCAMINE 100 MG in NS 100 ML IV SCH (09:22)
[2019-10-17] MEDS: DULCOLAX PR SCH ×2 (09:22→20:45)
[2019-10-17] MEDS ORDERED: VANCOMYCIN 500 MG in NS 100 ML IV ONE (12:00)
[2019-10-17] MEDS: MORPHINE IV PRN (14:03)
--- NOTE | 2019-10-17 17:38 | INFECTIOUS DISEASE PROGRESS NO ---
DATE: 10/17/2019 PRESENT ILLNESS: The patient has pneumonia, peritonitis, and cirrhosis of the liver due to hepatitis C. MEDICATIONS: This is day 7 of treatment with Zosyn and vancomycin and day 4 of treatment with micafungin. PHYSICAL EXAMINATION: Vital Signs: Temperature is 97.2 degrees, pulse 103, respirations 25, blood pressure 112/70. General: This is an ill-appearing middle-aged male. He is intubated and sedated. Head/eyes/ears/nose/throat: The patient has an orotracheal and a nasogastric tube in place. There is no drainage from the nose or the ears. Neck: No stiffness. Lungs: There were bilateral rhonchi. Cardiovascular: Heart rate is regular. Abdomen: The patient is protuberant. He has an ostomy appliance to collect ascitic fluid that is coming from the patient's abdomen. In both groin areas there are IV catheters and both catheter sites are not purulent and they are not bleeding. Neurologic: The patient is obtunded. He did not respond to verbal stimuli. There is no tremor. Extremities: Both legs are edematous and have peau d'orange skin. LAB AND X-RAY: Chest x-ray shows improvement in the patient's pneumonia/pulmonary edema. AST is 240. Bilirubin is up to 13.15. Creatinine is 2.4. GFR is 34. Blood gases show a pH of 7.34, PO2 of 155 and a pCO2 of 35. The patient's CBC shows a white count of 17,470, hemoglobin 8.3 and platelet count 27,000. ASSESSMENT AND PLAN: The patient has pneumonia, peritonitis and cirrhosis of the liver due to hepatitis C. I plan on continuing the patient's current antibiotics consisting of vancomycin, Zosyn and micafungin. COMORBIDITIES: Cirrhosis of the liver due to hepatitis C, psoriasis, chronic kidney disease, and cigarette smoking. The patient also has chronic leg edema. cc: Clemente Vivas MD
--- NOTE | 2019-10-17 20:30 | PROVIDER PROGRESS NOTE ---
Progress Note Progress Note Dr. Robles Progress Note/Pulmonary and or critical care We appreciated progress of care, Complications, change in diagnosis, and instructions to patient. Subjective: We note the level of consciousness, bed (chair) position, family presence (if any), level of lethargy, feeling of symptoms, and changes from baseline condition/symptom. The patient is intubated. He remains unresponsive to painful stimuli. He has been on SLEDD per Dr. Ramirez for 1.5 hours with 6.5 hours remained. He is on maximum amount of Alec, Levophed now off. Patients mother at the bedside. Objective: Vital Signs: We reviewed EMR current values for Pulse rate, Blood pressure, Pulse rate, respiratory rate and Pulse oximetry. Also noted other values and trends if present (e.g. I/O, CVP). T 96.6, ID 104 , RR 24 , BP 110/71 and SaO2 98% on AC 18,70.0, 550, 8. Physical Examination: General: Lying in bed with no acute distress noted. HEENT: Normocephalic. Atraumatic. Mucus pink and moist. ET tube in place. Sluggish pupils. Chest: Mechanically ventilated. Symmetrical excursion. Coarse breathing sounds throughout with inspiratory and expiratory crackles bilaterally. CVS: Tachycardia. S1 and S2 appreciated. Abdomen: Soft. Non-distended. Edema. No bowel sounds noted in all 4 quadrants. Extremities: BLE chronic lymphedema with severe pitting edema 4+. BUE pitting edema 1-2+. Neuro: Unresponsive to painful stimuli. Management, face to face evaluation by Dr. Robles. JEAN MARIE Patel did scribing only. Labs and Radiology: Reviewed available labs and radiology values available at time of EMR review. Laboratory Results 10/14/19 10/16/19 10/17/19 21:35 20:48 04:45 WBC RBC Hgb Hct MCV MCH MCHC RDW Std Deviation Plt Count MPV Immature Gran % (Auto) Neut % (Auto) Lymph % (Auto) [place] % (Auto) Eos % (Auto) Baso % (Auto) Immature Gran # (Auto) Neut # (Auto) Lymph # (Auto) [place] # (Auto) Eos # (Auto) Baso # (Auto) PT INR Fibrinogen D-Dimer, Quantitative Specimen Type Sample Site pH pCO2 pO2 HCO3 Base Excess Oxyhemoglobin ABG O2 Sat (Calculated) ABG O2 Saturation ABG Carboxyhemoglobin ABG Methemoglobin Aureliano Test A-a O2 Difference Total Hemoglobin Lactate Blood Gas Modality Vent Mode Spontaneous Rate FiO2 % Tidal Volume PEEP Sodium 139 Potassium 4.4 Chloride 106 Carbon Dioxide 21 L Anion Gap 12 BUN 24 H Creatinine 2.4 H Estimated GFR/1.73 m2 34 BUN/Creatinine Ratio 10 Glucose 71 POC Glucose 96 Calculated Osmolality 280 Calcium 9.3 Phosphorus 3.9 Total Bilirubin Direct Bilirubin AST ALT Alkaline Phosphatase Total Protein Albumin 2.8 L Globulin Albumin/Globulin Ratio Random Vancomycin Blood Type O POSITIVE Antibody Screen NEGATIVE 10/17/19 10/17/19 10/17/19 04:45 04:45 04:45 WBC 17.47 H RBC 2.83 L Hgb 8.3 L Hct 26.4 L MCV 93.3 MCH 29.3 MCHC 31.4 L RDW Std Deviation 20.3 H Plt Count 27 L* MPV 11.3 H Immature Gran % (Auto) 1.8 H Neut % (Auto) 56.0 Lymph % (Auto) 36.7 [place] % (Auto) 4.7 Eos % (Auto) 0.2 Baso % (Auto) 0.6 Immature Gran # (Auto) 0.32 H Neut # (Auto) 9.76 H Lymph # (Auto) 6.42 H [place] # (Auto) 0.82 H Eos # (Auto) 0.04 Baso # (Auto) 0.11 PT 35.3 H INR 3.38 Fibrinogen D-Dimer, Quantitative Specimen Type Sample Site pH pCO2 pO2 HCO3 Base Excess Oxyhemoglobin ABG O2 Sat (Calculated) ABG O2 Saturation ABG Carboxyhemoglobin ABG Methemoglobin Aureliano Test A-a O2 Difference Total Hemoglobin Lactate Blood Gas Modality Vent Mode Spontaneous Rate FiO2 % Tidal Volume PEEP Sodium Potassium Chloride Carbon Dioxide Anion Gap BUN Creatinine Estimated GFR/1.73 m2 BUN/Creatinine Ratio Glucose POC Glucose Calculated Osmolality Calcium Phosphorus Total Bilirubin 13.15 H Direct Bilirubin 9.20 H AST 240 H ALT 152 H Alkaline Phosphatase 171 H Total Protein 5.7 L Albumin 2.8 L Globulin 2.9 Albumin/Globulin Ratio 1.0 Random Vancomycin Blood Type Antibody Screen 10/17/19 10/17/19 10/17/19 04:45 05:38 05:51 WBC RBC Hgb Hct MCV MCH MCHC RDW Std Deviation Plt Count MPV Immature Gran % (Auto) Neut % (Auto) Lymph % (Auto) [place] % (Auto) Eos % (Auto) Baso % (Auto) Immature Gran # (Auto) Neut # (Auto) Lymph # (Auto) [place] # (Auto) Eos # (Auto) Baso # (Auto) PT INR Fibrinogen 68.0 L D-Dimer, Quantitative > 20.00 H Specimen Type ARTERIAL Sample Site R RADIAL pH 7.34 L pCO2 35 pO2 155 H HCO3 20.1 Base Excess -6.2 L Oxyhemoglobin 97.1 ABG O2 Sat (Calculated) 13.0 L ABG O2 Saturation 100.4 H ABG Carboxyhemoglobin 2.40 ABG Methemoglobin 1.0 Aureliano Test YES A-a O2 Difference 229.0 Total Hemoglobin 9.3 L Lactate 4.00 H* Blood Gas Modality VENTILATOR Vent Mode A/C Spontaneous Rate 18 FiO2 % 60.0 Tidal Volume 550 PEEP 5.0 Sodium Potassium Chloride Carbon Dioxide Anion Gap BUN Creatinine Estimated GFR/1.73 m2 BUN/Creatinine Ratio Glucose POC Glucose 60 L Calculated Osmolality Calcium Phosphorus Total Bilirubin Direct Bilirubin AST ALT Alkaline Phosphatase Total Protein Albumin Globulin Albumin/Globulin Ratio Random Vancomycin Blood Type Antibody Screen 10/17/19 10/17/19 10/17/19 09:08 11:32 17:06 WBC RBC Hgb Hct MCV MCH MCHC RDW Std Deviation Plt Count MPV Immature Gran % (Auto) Neut % (Auto) Lymph % (Auto) [place] % (Auto) Eos % (Auto) Baso % (Auto) Immature Gran # (Auto) Neut # (Auto) Lymph # (Auto) [place] # (Auto) Eos # (Auto) Baso # (Auto) PT INR Fibrinogen D-Dimer, Quantitative Specimen Type Sample Site pH pCO2 pO2 HCO3 Base Excess Oxyhemoglobin ABG O2 Sat (Calculated) ABG O2 Saturation ABG Carboxyhemoglobin ABG Methemoglobin Aureliano Test A-a O2 Difference Total Hemoglobin Lactate Blood Gas Modality Vent Mode Spontaneous Rate FiO2 % Tidal Volume PEEP Sodium Potassium Chloride Carbon Dioxide Anion Gap BUN Creatinine Estimated GFR/1.73 m2 BUN/Creatinine Ratio Glucose POC Glucose 86 73 Calculated Osmolality Calcium Phosphorus Total Bilirubin Direct Bilirubin AST ALT Alkaline Phosphatase Total Protein Albumin Globulin Albumin/Globulin Ratio Random Vancomycin 21.70 Blood Type Antibody Screen Assessment: Acute respiratory failure. Intubated on 10/10/19. Septic shock likely secondary to acute colitis vs. spontaneous bacterial peritonitis. Pneumonia. Sputum culture on 10/10/19 grows gram positive cocci today. Hypovolemic shock. Acute kidney injury. Transaminitis. Hypothermia. Liver cirrhosis with history of hepatitis C. Multiple organ failure with high mortality and morbidity possibility. Plan: Continue current treatment and supportive care per admitting and other teams on the case. Ventilation checked and titrated to the patients needs for clinical protocols with close monitoring. Sedation with prn morphine and prn Ativan titrated to the patients needs per clinical protocols with closely monitoring. Pressors titrated to the patients needs per clinical protocols with closely monitoring. Antibiotic (Vancomycin and Zosyn), bronchodilators and IV Solu-Cortef. Input was appreciated from Admitting MD and other teams on the case. Start Tube feedings Evaluation time in minutes: 35 minutes.
[2019-10-18] MEDS: NEO-SYNEPHRINE 100 MG in NS 250 ML IV SCH ×2 (01:50→15:51)
[2019-10-18] MEDS: ZOSYN 2.25 GM in NS 50 ML IV SCH ×3 (02:26→21:59)
[2019-10-18] MEDS: ATROVENT NEB INH SCH ×6 (03:19→23:10)
[2019-10-18] MEDS: XOPENEX NEB INH SCH ×6 (03:19→23:10)
[2019-10-18] MEDS: PROTONIX IV SCH ×2 (03:34→15:51)
--- NOTE | 2019-10-18 04:18 | PROGRESS NOTE ---
DATE: 10/17/2019 SUBJECTIVE: The patient is resting comfortably. He is currently on the ventilator. No acute events noted overnight. The patient remains on Alec-Synephrine drip. OBJECTIVE: Vital Signs: Temperature 96 degrees, blood pressure 110/71, heart rate 104, respirations 24, O2 saturation 98% on mechanical ventilator. Intake 1.7 L and output 0. General: This is a chronically ill-appearing elderly male currently unresponsive on the ventilator. Heart: S1, S2. Normal. Tachycardic. Lungs: Equal air entry bilaterally. Coarse breath sounds. Abdomen: No bowel sounds, firm, and distended. Extremities: 3+ edema in the lower extremities. Groin: Severe penile and scrotal edema noted. There does appear to be a skin tear on the penis. Neurologic: The patient is unresponsive on the ventilator. LABORATORY: White blood cell count 17, hemoglobin 8.3, hematocrit 26, platelets 27,000, and INR 3.3. ABG: pH 7.3, pCO2 35, PO2 155, lactate 4, sodium 139, potassium 4.4, chloride 106, CO2 21, BUN 24, creatinine 2.4, glucose 71, and total bilirubin 13. The direct bilirubin 9, AST 240, ALT 152, and alkaline phosphatase 171. Chest x-ray shows improved pneumonia and/or pulmonary edema. ASSESSMENT AND PLAN: 1. Acute hypercapnic and hypoxemic respiratory failure multifactorial. The patient remains ventilator dependent. Continue with management as per the dental hygiene teacher. 2. Septic shock. The patient continues to require Alec-Synephrine for blood pressure support. Continue with antibiotics and antifungal treatment. 3. Bilateral lobe pneumonia secondary to oxacillin-sensitive Staphylococcus aureus. Continue with antibiotic therapy as directed by Dr. Vivas. 4. Volume overload with anasarca. This will be addressed during the patient's SLED sessions. 5. Acute kidney injury with anuria likely secondary to acute tubular necrosis. Continue with SLED as scheduled by Dr. Ramirez. 6. Global encephalopathy. Unchanged. Continue to monitor for improvement. 7. DIC. We will transfuse 1 unit of FFP today. 8. Shock liver. Slowly improving. 9. Liver cirrhosis. Aware. 10. Hepatitis C. Aware. 11. Anemia. Stable. 12. Thrombocytopenia. We will transfuse 1 unit of platelets today. 13. Possible gastrointestinal bleed. Continue on IV Protonix. 14. Disposition. The patient is in multiorgan failure. The patient is critically ill with a high risk of mortality. The patient is a DNR level 2. I updated the patient's brother this morning about the patient's medical condition and prognosis. cc: Stephany Cowan MD MTDD
[2019-10-18 05:34] LABS: ALLEN TEST YES; BE -6.4 mmoll (-3.0-3.0); BLOOD TYPE ARTERIAL; HCO3-(ACT) 19.9 mmoll (20.0-26.0); METHB 0.9 % (0.0-1.5); O2(CT) 12.3 mL/dL (15.0-23.0); O2HB 95.4 % (95.0-99.0); PCO2(98.6) 41 mmHg (35-45); PO2(98.6) 81 mmHg (60-100); SAMPLE BLOOD; SAO2 100.3 % (95.0-100.0); SRATE 18 BPM; THB 9.1 g/dL (11.5-17.4); TVOL 550 mL; pH(98.6) 7.29 (7.35-7.45)
[2019-10-18 05:36] LABS: MODALITY VENTILATOR
[2019-10-18 05:56] LABS: INR 2.75; PROTIME 29.9 Seconds (11.0-16.0)
[2019-10-18] MEDS: SOLU-CORTEF IV SCH ×3 (06:00→22:00)
[2019-10-18 06:07] LABS: CALCIUM 9.9 mg/dL (8.8-10.2); CREATININE 3.5 mg/dL (0.7-1.2); PHOSPHORUS 5.3 mg/dL (2.7-4.5); POTASSIUM 4.7 mmol/L (3.5-5.1)
[2019-10-18 06:08] LABS: ALB/GLOB RATIO 1.1; ALBUMIN 3.1 g/dL (3.5-5.0); ALKALINE PHOSPHATASE 171 U/L (32-122); BASO# 0.06 X1000 (0.0-0.2); BASO% 0.3 % (0.0-0.8); DIRECT BILIRUBIN > 10.00 mg/dL (0.00-0.20); GOT 171 U/L (10-34); GPT 124 U/L (10-44); HEMATOCRIT 28.7 % (42.0-52.0); HEMOGLOBIN 8.8 g/dL (14.0-18.0); MCHC 30.7 g/dL (33-37); MCV 94.7 FL (81-99); MPV 10.9 FL (7.4-10.4); PLT 89 X1000 (130-400); RBC 3.03 XMIL (4.7-6.1); RDW 21.4 % (11.5-14.5); TOTAL PROTEIN 5.9 g/dL (6.3-8.3); WBC 19.22 X1000 (4.8-10.8)
[2019-10-18] MEDS ORDERED: NS 2,000 ML MISC PRN (07:01)
--- NOTE | 2019-10-18 07:44 | Diag Imaging Result Doc PS360 ---
EXAM: CHEST-PORTABLE INDICATION: Pneumonia TECHNIQUE: One view COMPARISON: 10/17/2019 FINDINGS: Support tubes and lines are in stable position. Extensive diffuse interstitial and airspace opacities throughout both lungs are stable to marginally improved. No new consolidation is identified. Cardiac silhouette is stable. IMPRESSION: Stable to marginal improvement of diffuse bilateral consolidations. Electronically signed by Neftali Claire 10/18/2019 7:41 AM
[2019-10-18] MEDS: DULCOLAX PR SCH ×2 (08:00→21:59)
[2019-10-18 08:22] LABS: MONO 10 % (1-9); NRBC 2 % (0-0); SEGS 90 % (42-75)
[2019-10-18] MEDS ORDERED: LOPRESSOR IV PRN (09:37)
--- NOTE | 2019-10-18 10:24 | PROGRESS NOTE ---
DATE: 10/18/2019 SUBJECTIVE: The patient is currently on a mechanical ventilator. He remains on a Laec-Synephrine drip. He is currently undergoing SLED. No acute events noted overnight. OBJECTIVE: Vital Signs: Temperature 96.1 degrees, blood pressure 118/72, heart rate 107, respirations 27, O2 saturation is 97% on the mechanical ventilator. Intake 3 L. Urine output 0. General: This is a chronically ill-appearing, elderly male, currently unresponsive, on the ventilator. HEENT: Normocephalic, atraumatic. Pupils are reactive but sluggish. Trachea is midline. Heart: S1, S2 normal, tachycardic. Lungs: Equal air entry bilaterally. No wheezing. No rales. No rhonchi. Abdomen: No bowel sounds. Firm, distended. Extremities: There is 3+ edema up to the thighs. : Severe penile and scrotal edema. There is a skin tear on the penis. Neurologic: The patient is unresponsive. Labs: White blood cell count 19, hemoglobin 8.8, hematocrit 28, platelets 89,000. INR 2.7. ABG: pH of 7.29, pCO2 of 41, PO2 of 81, bicarb 19. Sodium 140, potassium 4.7, chloride 106, CO2 of 21, BUN 48, creatinine 3.5, glucose 87. Total bilirubin 15, direct bilirubin greater than 10, AST 171, ALT 124, alkaline phosphatase 171, albumin 3.1. Chest x-ray shows diffuse bilateral consolidations. ASSESSMENT AND PLAN: 1. Acute hypercapnic and hypoxemic respiratory failure. Multifactorial. The patient remains ventilator dependent. Continue with the management as per the policy advisor. 2. Septic shock. The patient is currently on Alec-Synephrine for blood pressure support. Continue with broad-spectrum antibiotics and micafungin. So far, the blood cultures remain negative. 3. Bilateral lobe pneumonia secondary to oxacillin-sensitive Staphylococcus aureus. Continue on vancomycin as directed by Dr. Vivas. 4. Volume overload with anasarca. This will be addressed during the patient's routine SLED sessions. 5. Acute kidney injury with anuria, likely secondary to acute tubular necrosis. The patient is undergoing SLED at this time. 6. Global encephalopathy. Unchanged. Continue to monitor closely for improvement. 7. Disseminated intravascular coagulation. The patient received 1 unit of fresh frozen plasma yesterday. The INR is slightly improved. 8. Shock liver, slowly improving. However, the bilirubin continues to rise. We will continue to monitor closely. 9. Liver cirrhosis. Aware. 10. Hepatitis C. Aware. 11. Anemia. Stable. 12. Thrombocytopenia. Improved. The patient received 1 unit of platelets yesterday. 13. Possible gastrointestinal bleed. The patient remains on intravenous Protonix. 14. Nutrition. Tube feeds are on hold this morning due to high residuals. 15. Disposition. The patient is in multiorgan failure. The patient remains critically ill with a high risk of mortality. The patient is currently a Do Not Resuscitate level 2. Palliative care is following. cc: Stephany Cowan MD MTDD
[2019-10-18] MEDS: D50W SYRINGE IV PRN ×2 (11:30→13:42)
--- NOTE | 2019-10-18 12:19 | INFECTIOUS DISEASE PROGRESS NO ---
DATE: 10/18/2019 PRESENT ILLNESS: The patient has pneumonia, peritonitis, and cirrhosis of the liver due to hepatitis C. MEDICATIONS: This is day 7 of treatment with Zosyn and vancomycin. This is day 5 of treatment with micafungin. PHYSICAL EXAMINATION: Vital Signs: Temperature is 96.1 degrees, pulse 107, respirations 27, blood pressure 118/72. General: This is an ill-appearing, middle-aged male. He is intubated and sedated. HEENT: He has an orotracheal and nasogastric tube in place. There is no drainage from the ears or nose. Neck: No stiffness. Lungs: Bilateral rhonchi. Cardiovascular: Heart rate is regular. Abdomen: The patient's abdomen is protuberant, and it is still draining fluid into an ostomy bag. Neurologic: The patient is obtunded. He did not respond to verbal stimuli. Extremities: The patient's both legs are edematous and have peau d'orange skin. IMAGING AND LABORATORY DATA: Chest x-ray shows improvement in the bilateral opacities. CBC shows a white count of 19,220, hemoglobin 8.8, platelet count 89,000. Creatinine is 3.5. GFR is 22. Blood gases show a pH of 7.29, a PO2 of 81, and a pCO2 of 41. ASSESSMENT AND PLAN: The patient has pneumonia, peritonitis, and cirrhosis of the liver due to hepatitis C. I plan on continuing his current antibiotics of vancomycin, Zosyn, and micafungin. He does have leukocytosis, but he is receiving high doses of steroids, and this could be contributing to the leukocytosis. COMORBIDITIES: Cirrhosis of the liver due to hepatitis C, psoriasis, chronic kidney disease, cigarette smoking, and chronic leg edema. cc: Clemente Vivas MD
--- NOTE | 2019-10-18 13:08 | NEUROLOGY PROGRESS NOTE ---
DATE: 10/18/2019 SUBJECTIVE: No major overnight events. The patient has not had significant change. He is hypothermic. He has DIC and continues multiorgan failure. OBJECTIVE: Vital Signs: Temperature 96.1 degrees, blood pressure currently 118/72, multiple readings 80s/40s to 50s systolic on 10/16/2019. Pulse 107. Respirations 27. He is on mechanical ventilator. General: Mr. Moralez is supine in bed with eyes closed. He is on the ventilator. He does not respond to loud voice. There is minimal facial grimace to noxious sternal rub. OD 5 mm and very sluggishly reactive. OS 4 mm with very sluggish reactivity as well. There was brisk corneal responses bilaterally. There is some horizontal eye movement with passive head turning. Face appears symmetric at rest. Limbs are flaccid, equal. I did not see significant movement of the limbs today. MEDICATIONS: Reviewing medications, he received 4 mg of morphine. Last dose was on FridayOctober 17 at 2 p.m. There was lorazepam 2 mg at 4 a.m. October 16. DIAGNOSTICS: Labs: White count 19, platelets 89,000. PT 29.9, INR 2.75, PTT 45.2, fibrinogen 68, D-dimer greater than 20. Normal sodium, BUN 48, creatinine 3.5, AST 171, ALT 124. Alkaline phosphatase 171. Elevated bilirubin. There has not been cranial imaging this hospitalization. ASSESSMENT AND PLAN: Remains global encephalopathy with multiple factors contributing. Question of brainstem dysfunction. I would recommend head CT noncontrast once practical. I would continue to hold all sedating medications. The patient is critically ill. cc: Salina Bonilla MD
--- NOTE | 2019-10-18 13:39 | HEMO/ONC PROGRESS NOTE ---
DATE: 10/18/2019 SUBJECTIVE: There is not much change in Mr. Moralez's status. He remains on a ventilator in the ICU. He currently remain on pressors. He has been undergoing SLED. His status remains critical. OBJECTIVE: Vital Signs: Temperature 98.6 degrees, pulse rate 121, respiratory rate 28, blood pressure 85/56, O2 saturation 97% on mechanical ventilation. He appears to be in 0/10 pain. Physical Examination: General: This is a very ill-appearing male, on the ventilator, supine in the ICU bed. HEENT: Pupils are sluggish. Oral mucosa is dry. Cardiovascular: Normal S1, S2 noted. Heart rate and rhythm tachycardic. Respiratory: Rhonchi noted to upper lungs. Lung sounds diminished throughout. Gastrointestinal: Abdomen is firm and distended. Extremities: Lower extremities, there is 3+ edema up to the thighs. Bilateral arms have edema as well. : Severe penile and scrotal edema. Laboratory: WBCs 19.22, hemoglobin 8.8, hematocrit 28.7, platelet count 89,000. BUN 48, creatinine 3.5, phosphorus 5.3. Bilirubin 15.70, direct bilirubin greater than 10, AST 171, ALT 124, alkaline phosphatase 171. Radiology: Chest x-ray, extensive diffuse interstitial and airspace opacities throughout both lungs, are stable to marginally improved. No new consolidations identified. ASSESSMENT AND PLAN: 1. Acute hypercapnic and hypoxic respiratory failure. The patient remains on full ventilator support. Continue management per hospitalist. Continue to treat multifactorial underlying causes. 2. Septic shock. The patient continues to be in need of pressors. He is on multiple broad- spectrum antibiotics. Continue management per medical management. 3. Bilateral lobe pneumonia secondary to oxacillin-sensitive Staphylococcus aureus. Continue management per Dr. Vivas. 4. Thrombocytopenia, multifactorial. This is due to disseminated intravascular coagulation. Continue supporting with fresh frozen plasma as necessary. We are continuing to monitor his numbers. 5. Disseminated intravascular coagulation. We are continuing to monitor. The patient has been bleeding from multiple sites. Use fresh frozen plasma as necessary. 6. Shock liver. The patient's bilirubin has taken a significant increase. It appears his liver may be failing. The patient has had multiple other organ failures. 7. Liver cirrhosis, hepatitis C, peritonitis. Aware. 8. Anemia. Continue to support the patient with blood transfusions as necessary. There is possibility he has a small gastrointestinal bleed. Dictated by JEAN MARIE Almanzar for Freddie Galvan MD cc: Freddie Galvan MD [facility]
[2019-10-18] MEDS: MYCAMINE 100 MG in NS 100 ML IV SCH (13:59)
--- NOTE | 2019-10-18 14:24 | PROVIDER PROGRESS NOTE ---
Progress Note Subjective: Intubated and sedated. No family at bedside. Objective: temperature 96.1, pulse 107, respirations 27, blood pressure 118/72, 02 sat 97% on 40% FiO2 mechanical ventilation. General: Chronically ill appearing -Prydeinig male in no acute distress. HEENT: normocephalic, atraumatic, conjunctiva pink,pupils equal. Mucous membran es moist. Trachea midline. NG tube in place to LIS. Skin: Warm. Colostomy bag in place to abdomen at paracentesis site for continuous drainage. Neck: supple, 6 cm JVD observed. Cardiovascular: S1s2s4, tachycardic rate and rhythm. No murmur. Respiratory: diminished bases anteriorly bilaterally. Abdomen: slightly firm, distended, nontender. No bowel sounds. :non inspected, ryan in place with no urine. Extremities: generalized pitting edema greater in the bilateral lower extremities with chronic lymphedema. Left groin central line. Right groin vascath. Neurological: sedated. Labs: WBC 19.22, hemoglobin 8.8, hematocrit 28.7, platelet count 89, sodium 140, potassium 4.7, chloride 106, carbon dioxide 21, BUN 48, creatinine 3.5, albumin 3.1, intake 3003, output 50. Impression: Acute kidney injury without recovery. BUN and creatinine elevated. We will attempt slow low efficiency Dialysis at bedside today. Blood pressure. He remains on Alec-Synephrine. Fluid volume. Overloaded. We will attempt SLED today. Anemia. Stable. Thrombocytopenia. 1 unit FFP and 1 unit pheresed platelets yesterday. Electrolytes and acid base balance. Stable. Medication review. Vancomycin after each dialysis treatment added. Nutrition. Clinimix.
--- NOTE | 2019-10-18 15:01 | GASTROENTEROLOGY PROGRESS NOTE ---
DATE: 10/18/2019 SUBJECTIVE: Patient remains intubated on mechanical ventilation. He is currently on Alec- Synephrine, vasopressor, and is receiving SLED dialysis. Per nurse report, he has had some elevation in his heart rate. He was given Lopressor which has decreased his blood pressure slightly. Current vital signs 98.6, pulse 121, respirations 18, blood pressure 85/56. Tube feedings have been restarted. The patient continues to be unresponsive. OBJECTIVE: Vital Signs: Temperature 98.6 degrees, pulse 121, respirations 28, blood pressure 85/56. General: Patient is unresponsive. Abdomen: Distended, firm. Extremities: Edema noted. He still has some bloody drainage from his previous paracentesis site. LABORATORY: Hematology: WBC 19.22, hemoglobin 8.8, hematocrit 28.7, MCV 94.7, platelets 89,000. The patient did receive a unit of fresh frozen plasma yesterday and of platelets. Chemistry: Sodium 140, potassium 4.7, chloride 106, CO2 21, BUN 48, creatinine 3.5, glucose 87, total bilirubin 15.70, AST 171, ALT 124, alkaline phosphatase 171. Coagulation PTT 29.9, INR 2.75, PTT 45.2. ASSESSMENT AND PLAN: 1. Respiratory failure on mechanical ventilation. 2. Sepsis shock. The patient is receiving Alec-Synephrine. He is on antibiotics. 3. Pneumonia. Continue current management. Infectious Disease is following. 4. Acute kidney injury. Patient is currently receiving SLED dialysis. 5. Encephalopathy. 6. DIC, disseminated intravascular coagulation. 7. Shock liver. Bilirubin slightly higher today. AST and ALT slightly improved. 8. Liver cirrhosis, hepatitis C. PLAN: Continue supportive care. His tube feedings have been restarted. Continue management from other medical team. The patient was also seen and examined by Dr. Wheeler. Dictated by JEAN MARIE Chairez for Geronimo Wheeler MD cc: JEAN MARIE Smart MD
[2019-10-18] MEDS: SODIUM CHLORIDE 0.9% INJ SCH (15:51)
[2019-10-18] MEDS ORDERED: VANCOMYCIN 750 MG in NS 250 ML IV SCH (18:00)
[2019-10-18] MEDS ORDERED: VANCOMYCIN 750 MG in NS 250 ML IV ONE (18:00)
--- NOTE | 2019-10-18 18:45 | PROVIDER PROGRESS NOTE ---
Progress Note Dr. Robles Progress Note/Pulmonary and or critical care We appreciated progress of care, Complications, change in diagnosis, and instructions to patient. Subjective: We note the level of consciousness, bed (chair) position, family presence (if any), level of lethargy, feeling of symptoms, and changes from baseline condition/symptom. The patient is intubated. He remains unresponsive to painful stimuli. SLED on at this time with mariam drip 125 mcg/min. He is tachycardiac and tachypneic. No fa zach at the bedside. Objective: Vital Signs: We reviewed EMR current values for Pulse rate, Blood pressure, Pulse rate, respiratory rate and Pulse oximetry. Also noted other values and trends if present (e.g. I/O, CVP). 98.6 (No fever in last 24 hours), W[place] 121, RR 28, BP 85/56 and SaO2 97 on AC 18, 40%, 550, 5. I/O +2953 ml Physical Examination: General: Lying in bed with no acute distress noted. [place] frothy drainage noted in the hose attaching to the ETT with pink foamy drainage in the mouth noted. HEENT: Normocephalic. Atraumatic. Mucus pink and moist. ET tube in place. Sluggish pupils. Chest: Mechanically ventilated. Symmetrical excursion. Rhonchi bilaterally with inspiratory crackles bibasilarly. CVS: Tachycardia. S1 and S2 appreciated. Abdomen: Distended. Firm. Edema. Bloody drainage from the previous paracentesis site noted. Extremities: BLE severe edema with peau dorange skin and chronic stasis change. BUE pitting edema 1+. Neuro: Non-sedated. Unresponsive to painful stimuli. Labs and Radiology: Reviewed available labs and radiology values available at time of EMR review. Laboratory Results 10/17/19 10/18/19 10/18/19 20:50 04:40 04:52 WBC RBC Hgb Hct MCV MCH MCHC RDW Std Deviation Plt Count MPV Neut % (Auto) Lymph % (Auto) [place] % (Auto) Eos % (Auto) Baso % (Auto) Neut # (Auto) Lymph # (Auto) [place] # (Auto) Eos # (Auto) Baso # (Auto) Segmented Neutrophils Monocytes Nucleated RBCs PT INR PTT (Actin FS) Specimen Type ARTERIAL Sample Site R RADIAL pH 7.29 L pCO2 41 pO2 81 HCO3 19.9 L Base Excess -6.4 L Oxyhemoglobin 95.4 ABG O2 Sat (Calculated) 12.3 L ABG O2 Saturation 100.3 H ABG Carboxyhemoglobin 4.00 H ABG Methemoglobin 0.9 Aureliano Test YES A-a O2 Difference 224.0 Total Hemoglobin 9.1 L Lactate 4.00 H* Blood Gas Modality VENTILATOR Vent Mode A/C Spontaneous Rate 18 FiO2 % 50.0 Tidal Volume 550 PEEP 5.0 Sodium 140 Potassium 4.7 Chloride 106 Carbon Dioxide 21 L Anion Gap 13 BUN 48 H D Creatinine 3.5 H Estimated GFR/1.73 m2 22 BUN/Creatinine Ratio 14 Glucose 87 POC Glucose 87 Calculated Osmolality 291 Calcium 9.9 Phosphorus 5.3 H Total Bilirubin Direct Bilirubin AST ALT Alkaline Phosphatase Total Protein Albumin 3.0 L Globulin Albumin/Globulin Ratio 10/18/19 10/18/19 10/18/19 04:52 04:52 04:52 WBC 19.22 H RBC 3.03 L Hgb 8.8 L Hct 28.7 L MCV 94.7 MCH 29.0 MCHC 30.7 L RDW Std Deviation 21.4 H Plt Count 89 L D MPV 10.9 H Neut % (Auto) Not Reportable Lymph % (Auto) Not Reportable [place] % (Auto) Not Reportable Eos % (Auto) Not Reportable Baso % (Auto) 0.3 Neut # (Auto) Not Reportable Lymph # (Auto) Not Reportable [place] # (Auto) Not Reportable Eos # (Auto) Not Reportable Baso # (Auto) 0.06 Segmented Neutrophils 90 H Monocytes 10 H Nucleated RBCs 2 H PT 29.9 H INR 2.75 PTT (Actin FS) Specimen Type Sample Site pH pCO2 pO2 HCO3 Base Excess Oxyhemoglobin ABG O2 Sat (Calculated) ABG O2 Saturation ABG Carboxyhemoglobin ABG Methemoglobin Aureliano Test A-a O2 Difference Total Hemoglobin Lactate Blood Gas Modality Vent Mode Spontaneous Rate FiO2 % Tidal Volume PEEP Sodium Potassium Chloride Carbon Dioxide Anion Gap BUN Creatinine Estimated GFR/1.73 m2 BUN/Creatinine Ratio Glucose POC Glucose Calculated Osmolality Calcium Phosphorus Total Bilirubin 15.70 H Direct Bilirubin > 10.00 H AST 171 H ALT 124 H Alkaline Phosphatase 171 H Total Protein 5.9 L Albumin 3.1 L Globulin 2.8 Albumin/Globulin Ratio 1.1 10/18/19 10/18/1910/18/20 04:52 05:54 11:27 WBC RBC Hgb Hct MCV MCH MCHC RDW Std Deviation Plt Count MPV Neut % (Auto) Lymph % (Auto) [place] % (Auto) Eos % (Auto) Baso % (Auto) Neut # (Auto) Lymph # (Auto) [place] # (Auto) Eos # (Auto) Baso # (Auto) Segmented Neutrophils Monocytes Nucleated RBCs PT INR PTT (Actin FS) 45.2 H Specimen Type Sample Site pH pCO2 pO2 HCO3 Base Excess Oxyhemoglobin ABG O2 Sat (Calculated) ABG O2 Saturation ABG Carboxyhemoglobin ABG Methemoglobin Aureliano Test A-a O2 Difference Total Hemoglobin Lactate Blood Gas Modality Vent Mode Spontaneous Rate FiO2 % Tidal Volume PEEP Sodium Potassium Chloride Carbon Dioxide Anion Gap BUN Creatinine Estimated GFR/1.73 m2 BUN/Creatinine Ratio Glucose POC Glucose 84 62 L Calculated Osmolality Calcium Phosphorus Total Bilirubin Direct Bilirubin AST ALT Alkaline Phosphatase Total Protein Albumin Globulin Albumin/Globulin Ratio 10/18/19 15:54 WBC RBC Hgb Hct MCV MCH MCHC RDW Std Deviation Plt Count MPV Neut % (Auto) Lymph % (Auto) [place] % (Auto) Eos % (Auto) Baso % (Auto) Neut # (Auto) Lymph # (Auto) [place] # (Auto) Eos # (Auto) Baso # (Auto) Segmented Neutrophils Monocytes Nucleated RBCs PT INR PTT (Actin FS) Specimen Type Sample Site pH pCO2 pO2 HCO3 Base Excess Oxyhemoglobin ABG O2 Sat (Calculated) ABG O2 Saturation ABG Carboxyhemoglobin ABG Methemoglobin Aureliano Test A-a O2 Difference Total Hemoglobin Lactate Blood Gas Modality Vent Mode Spontaneous Rate FiO2 % Tidal Volume PEEP Sodium Potassium Chloride Carbon Dioxide Anion Gap BUN Creatinine Estimated GFR/1.73 m2 BUN/Creatinine Ratio Glucose POC Glucose 80 Calculated Osmolality Calcium Phosphorus Total Bilirubin Direct Bilirubin AST ALT Alkaline Phosphatase Total Protein Albumin Globulin Albumin/Globulin Ratio Assessment: Acute respiratory failure. Intubated on 10/10/19. Septic shock likely secondary to pneumonia and peritonitis. Pneumonia, bilateral. Sputum culture on 10/10/19 grew Oxacillin-sensitive Staphylococcus Aureus. Liver cirrhosis due to hepatitis C. Disseminated intravascular coagulation. Acute kidney injury with moderate metabolic acidosis and severe volume overload. On SLED per Dr. Ramirez. DNR 2. Multiple organ failure with high mortality and morbidity possibility. Plan: Continue current treatment and supportive care per admitting and other teams on the case. Ventilation checked and titrated to the patients needs for clinical protocols with close monitoring. Sedation with prn morphine and prn Ativan titrated to the patients needs per clinical protocols with closely monitoring. Pressors (mariam drip) titrated to the patients needs per clinical protocols with closely monitoring. Antibiotic (Vancomycin and Zosyn) and antifungal Micafungin per Dr. Vivas, bronchodilators and IV Solu-Cortef. Input was appreciated from Admitting MD and other teams on the case. Evaluation time in minutes: 33 minutes.
[2019-10-19] MEDS: SOLU-CORTEF IV SCH ×4 (02:28→21:45)
[2019-10-19] MEDS: ATROVENT NEB INH SCH ×6 (03:20→23:19)
[2019-10-19] MEDS: XOPENEX NEB INH SCH ×6 (03:20→23:19)
[2019-10-19 05:03] LABS: ALLEN TEST YES; BE -7.3 mmoll (-3.0-3.0); BLOOD TYPE ARTERIAL; HCO3-(ACT) 19.2 mmoll (20.0-26.0); PCO2(98.6) 39 mmHg (35-45); PO2(98.6) 87 mmHg (60-100); SAMPLE BLOOD; SRATE 18 BPM; TVOL 550 mL; pH(98.6) 7.29 (7.35-7.45)
[2019-10-19 05:05] LABS: MODALITY VENTILATOR
[2019-10-19 05:18] LABS: BASO# 0.07 X1000 (0.0-0.2); BASO% 0.3 % (0.0-0.8); EOS# 0.01 X1000 (0.0-0.7); IMM GRAN# 0.16 X1000 (0.0-0.04); IMM GRAN% 0.7 % (0.0-0.5); LYMPH# 2.88 X1000 (1.2-3.4); LYMPH% 12.3 % (20.5-51.1); MCH 29.5 PG (27-31); MCV 95.1 FL (81-99); MONO# 1.54 X1000 (0.11-0.59); MONO% 6.6 % (1.7-9.3); MPV 11.3 FL (7.4-10.4); NEUT# 18.69 X1000 (1.4-6.5); NEUT% 80.1 % (42.2-75.2); PLT 55 X1000 (130-400); RBC 3.05 XMIL (4.7-6.1); RDW 22.2 % (11.5-14.5); WBC 23.35 X1000 (4.8-10.8)
[2019-10-19] MEDS: PROTONIX IV SCH ×2 (05:19→16:20)
[2019-10-19] MEDS: SODIUM CHLORIDE 0.9% INJ SCH ×2 (05:19→16:20)
[2019-10-19] MEDS: ZOSYN 2.25 GM in NS 50 ML IV SCH ×2 (05:19→16:21)
[2019-10-19 05:26] LABS: INR 3.35; PROTIME 34.9 Seconds (11.0-16.0)
[2019-10-19 05:51] LABS: ALB/GLOB RATIO 0.8; ALBUMIN 2.7 g/dL (3.5-5.0); ALKALINE PHOSPHATASE 186 U/L (32-122); GOT 171 U/L (10-34); GPT 119 U/L (10-44); TOTAL BILIRUBIN 15.63 mg/dL (0.20-1.00)
[2019-10-19 06:23] LABS: ALBUMIN 2.8 g/dL (3.5-5.0); CALCIUM 9.7 mg/dL (8.8-10.2); CREATININE 3.7 mg/dL (0.7-1.2); PHOSPHORUS 5.7 mg/dL (2.7-4.5)
[2019-10-19 06:24] LABS: DIRECT BILIRUBIN > 10.00 mg/dL (0.00-0.20)
[2019-10-19] MEDS ORDERED: NS 2,000 ML MISC PRN (06:46)
--- NOTE | 2019-10-19 06:46 | Diag Imaging Result Doc PS360 ---
CHEST-PORTABLE - 10/19/2019 INDICATION: Pneumonia COMPARISON: 10/18/2019 FINDINGS: Support tubes are stable. Stable low lung volumes. There has been significant decrease in the extensive, diffuse bilateral interstitial infiltrates. No pneumothorax or large pleural effusion. Heart size remains top normal. IMPRESSION: Significant improvement in the diffuse bilateral infiltrates. Electronically signed by Ernie Domínguez 10/19/2019 6:44 AM
[2019-10-19] MEDS: DULCOLAX PR SCH ×2 (09:28→20:48)
--- NOTE | 2019-10-19 12:14 | PROGRESS NOTE ---
DATE: 10/19/2019 INTERVAL HISTORY: No acute events overnight. SUBJECTIVE: Mr. Moralez is intubated. Though he is not on sedation he is not able to engage in any meaningful conversation or follow any commands. VITALS: Temperature of 97.9 degrees, pulse 108, respiratory rate 18, blood pressure 94/53. He is saturating 100% on 40% FiO2 on mechanical ventilation. PHYSICAL EXAMINATION: General: He does not appear in any acute distress. He has marked scleral icterus and digital clubbing. He has endotracheal tube, OG tube, urine catheter, bilateral groin central venous access catheter. Respiratory: Air entry bilaterally equal. No wheeze or rhonchi. He had mild crackles both lung bases. He has generalized anasarca. Ascites seems to have improved. Abdomen: Dull to percussion. No bowel sounds. Left lower quadrant has a colostomy bag around the previous paracentesis site with mild oozing. He has lymphedema affecting bilateral lower extremities. He does not respond to painful stimuli. He does however cough and chews his ET tube and has intact corneal reflexes. His right pupil is dilated as compared to the left and is sluggishly reacting as compared to left. Input and output suggests he was -2 0.9 L so far today. LABS: [place] [address], hemoglobin 9, platelet count of 55,000. He does have INR of 3.3. ABG suggestive of acidosis with pH of 7.29, bicarbonate of 19, pCO2 of 39, and a lactic acidosis of 3.7. He does have elevated BUN with 55 creatinine 3.7. His bilirubin is 15.6. His AST is 171, ALT is 119. No new microbiological data. IMAGING: Chest x-ray suggests significant improvement in diffuse bilateral lung infiltrate. ASSESSMENT AND PLAN: 1. Acute hypoxic hypercapnic respiratory failure, multifactorial. At the time of my evaluation he was over breathing the ventilator. Continue mechanical ventilation as per pulmonology recommendation. Albuterol ipratropium inhaled bronchodilators, pantoprazole for stress ulcer prophylaxis and chlorhexidine for ventilator associated pneumonia prophylaxis. 2. Septic shock. Potential sources of infection include acute peritonitis as well as methicillin- sensitive Staphylococcus aureus pneumonia. Continue intravenous vancomycin, intravenous Zosyn, intravenous micafungin and intravenous phenylephrine for MAP more than 65 mmHg. I appreciate Infectious Disease recommendations. 3. Acute kidney injury with anuria leading to volume overload and anasarca due to acute tubular necrosis. Continue dialysis as per Nephrology recommendation. 4. Disseminated intravascular coagulation and thrombocytopenia in the setting of a decompensated liver cirrhosis due to chronic active hepatitis C as well as shock liver. Hematology oncology on board. We will give him fresh frozen plasma and platelet transfusion as necessary. Goal is to keep platelet count at least more than 10,000. He has had so far 4 units of packed red blood cell transfusion, 4 units of fresh frozen plasma and 1 unit of platelet. 5. Acute upper gastrointestinal bleed. Continue intravenous pantoprazole IV b.i.d. 6. Nutrition. The patient did not tolerate tube feeds and they have been placed on hold. 7. Disposition. The patient's condition remains critical considering his unresponsiveness. I will get CT scan of head without contrast to rule out any cerebrovascular accident. Plan of care discussed with nursing team. TIME SPENT: More than 30 minutes of critical care time has been spent in taking care of this patient. cc: Jean Marie Goodwin MD
--- NOTE | 2019-10-19 12:42 | PROVIDER PROGRESS NOTE ---
Progress Note Subjective: Intubated. No family at bedside. Objective: temperature 97.9, pulse 104, respirations 18, blood pressure 94/53, 02 sat 100% on 40% FiO2 mechanical ventilation. General: Chronically ill appearing -[place] male in no acute distress. HEENT: normocephalic, atraumatic, conjunctiva pink,pupils equal and non reactive. Mucous membranes moist. Trachea midline. NG tube in place. Skin: Warm. Colostomy bag in place to abdomen at paracentesis site for continuous drainage. Neck: supple, 8cm JVD observed. Cardiovascular: [id number], tachycardic rate and rhythm. No murmur. Respiratory: diminished bases anteriorly bilaterally. Abdomen: slightly firm, distended, nontender. No bowel sounds. :non inspected, ryan in place with no urine. Extremities: generalized pitting edema 3+ greater in the bilateral lower extremities with chronic lymphedema. Left groin central line. Right groin vascath. Neurological: obtunded. Labs: WBC 23.35, hemoglobin 9.0, hematocrit 29.0, platelet count 55, PT 34.9, PTT 53.2, sodium 140, potassium 5.0, chloride 108, carbon dioxide 17, BUN 55, creatinine 3.7, albumin 2.7. Intake 1101, output 4030. Impression: Acute kidney injury without recovery. BUN and creatinine elevated despite SLED yesterday with a 4L ultrafiltration. We will attempt SLED again today with a 2K bath and 2-4L ultrafiltration. Blood pressure. He remains on Alec-Synephrine. Fluid volume. Overloaded. We will attempt SLED today. Anemia. Stable. Thrombocytopenia. No improvement. Electrolytes and acid base balance. Stable. Medication review. Nutrition. Tube feeding on hold.
[2019-10-19] MEDS ORDERED: LEVOPHED 8 MG in D5 1/2 NS 250 ML IV SCH (12:45)
[2019-10-19] MEDS: NEO-SYNEPHRINE 100 MG in NS 250 ML IV SCH (13:00)
--- NOTE | 2019-10-19 13:27 | Diag Imaging Result Doc PS360 ---
EXAM: CT HEAD W/O CONTRAST 10/19/2019 HISTORY: Dilated right pupil. Encephalopathy TECHNIQUE: This exam was performed using automated exposure control, adjustment of mA or kV according to patient size, and/or use of iterative reconstruction technique. COMMENT: There is no evidence of mass effect, bleed, or abnormal extra-axial fluid collection. Compared to 03/13/2017 there has been no significant change in the appearance of the chest. There is fluid in both maxillary sinuses and both sphenoid sinuses. The calvarium is intact. IMPRESSION: No evidence of acute intracranial disease. Sinusitis as described. Electronically signed by Triston Hurley 10/19/2019 1:24 PM
[2019-10-19 14:39] LABS: ALLEN TEST YES; BE -8.2 mmoll (-3.0-3.0); BLOOD TYPE ARTERIAL; HCO3-(ACT) 18.4 mmoll (20.0-26.0); METHB 0.5 % (0.0-1.5); O2(CT) 13.2 mL/dL (15.0-23.0); PCO2(98.6) 41 mmHg (35-45); PO2(98.6) 61 mmHg (60-100); SAMPLE BLOOD; THB 10.4 g/dL (11.5-17.4); pH(98.6) 7.26 (7.35-7.45)
[2019-10-19 14:41] LABS: MODALITY VENTILATOR; O2HB 89.8 % (95.0-99.0)
--- NOTE | 2019-10-19 16:17 | PROVIDER PROGRESS NOTE ---
Progress Note Dr. Robles Progress Note/Pulmonary and or critical care Subjective: The patient remained intubated. He is still unresponsive to painful stimuli. SLED completed at this time with mariam drip up to 175 mcg/min. Staff at the bedside is preparing to transfer him for head CT. He is tachycardiac and mildly tachypneic. Weaning trials will start after patient back from head CT. Patients daughter and mother at the bedside. Input was appreciated from Dr. Goodwin and other teams on the case. Objective: Vital Signs: 98.8 (No fever in last 24 hours), IN 124, RR 26, BP 89/45 and SaO2 98 on AC 18, 40%, 550, 5. I/O -2929 ml Physical Examination: General: Intubated. Lying in bed with no acute distress noted. HEENT: Normocephalic. Atraumatic. Mucus pink and moist. ET tube in place. Sluggish pupils. Chest: Mechanically ventilated. Symmetrical excursion. Inspiratory crackles bibasilarly. CVS: Tachycardia. S1 and S2 appreciated. Abdomen: Distended. Firm. Edema. Bloody drainage from the previous paracentesis site noted. No bowel sounds noted. Extremities: BLE severe edema with peau dorange skin and chronic stasis change. BUE pitting edema 1+. Neuro: Non-sedated. Unresponsive to painful stimuli. Labs and Radiology: Laboratory Results 10/18/19 10/18/19 10/18/19 11:27 15:54 23:08 WBC RBC Hgb Hct MCV MCH MCHC RDW Std Deviation Plt Count MPV Immature Gran % (Auto) Neut % (Auto) Lymph % (Auto) [place] % (Auto) Eos % (Auto) Baso % (Auto) Immature Gran # (Auto) Neut # (Auto) Lymph # (Auto) [place] # (Auto) Eos # (Auto) Baso # (Auto) PT INR PTT (Actin FS) Specimen Type Sample Site pH pCO2 pO2 HCO3 Base Excess Oxyhemoglobin ABG O2 Sat (Calculated) ABG O2 Saturation ABG Carboxyhemoglobin ABG Methemoglobin Aureliano Test A-a O2 Difference Total Hemoglobin Lactate Blood Gas Modality Vent Mode Spontaneous Rate FiO2 % Tidal Volume PEEP Pressure Support CPAP Sodium Potassium Chloride Carbon Dioxide Anion Gap BUN Creatinine Estimated GFR/1.73 m2 BUN/Creatinine Ratio Glucose POC Glucose 62 L 80 83 Calculated Osmolality Calcium Phosphorus Total Bilirubin Direct Bilirubin AST ALT Alkaline Phosphatase Total Protein Albumin Globulin Albumin/Globulin Ratio Random Vancomycin 10/19/19 10/19/19 10/19/19 04:30 04:45 04:45 WBC RBC Hgb Hct MCV MCH MCHC RDW Std Deviation Plt Count MPV Immature Gran % (Auto) Neut % (Auto) Lymph % (Auto) [place] % (Auto) Eos % (Auto) Baso % (Auto) Immature Gran # (Auto) Neut # (Auto) Lymph # (Auto) [place] # (Auto) Eos # (Auto) Baso # (Auto) PT 34.9 H INR 3.35 PTT (Actin FS) 53.2 H Specimen Type Sample Site pH pCO2 pO2 HCO3 Base Excess Oxyhemoglobin ABG O2 Sat (Calculated) ABG O2 Saturation ABG Carboxyhemoglobin ABG Methemoglobin Aureliano Test A-a O2 Difference Total Hemoglobin Lactate Blood Gas Modality Vent Mode Spontaneous Rate FiO2 % Tidal Volume PEEP Pressure Support CPAP Sodium 140 Potassium 5.0 Chloride 108 H Carbon Dioxide 17 L Anion Gap 15 BUN 55 H Creatinine 3.7 H Estimated GFR/1.73 m2 21 BUN/Creatinine Ratio 15 Glucose 114 H POC Glucose Calculated Osmolality 295 Calcium 9.7 Phosphorus 5.7 H Total Bilirubin Direct Bilirubin AST ALT Alkaline Phosphatase Total Protein Albumin 2.8 L Globulin Albumin/Globulin Ratio Random Vancomycin 10/19/19 10/19/19 10/19/19 04:45 04:45 04:53 WBC 23.35 H RBC 3.05 L Hgb 9.0 L Hct 29.0 L MCV 95.1 MCH 29.5 MCHC 31.0 L RDW Std Deviation 22.2 H Plt Count 55 L D MPV 11.3 H Immature Gran % (Auto) 0.7 H Neut % (Auto) 80.1 H Lymph % (Auto) 12.3 L [place] % (Auto) 6.6 Eos % (Auto) 0.0 Baso % (Auto) 0.3 Immature Gran # (Auto) 0.16 H Neut # (Auto) 18.69 H Lymph # (Auto) 2.88 [place] # (Auto) 1.54 H Eos # (Auto) 0.01 Baso # (Auto) 0.07 PT INR PTT (Actin FS) Specimen Type ARTERIAL Sample Site R RADIAL pH 7.29 L pCO2 39 pO2 87 HCO3 19.2 L Base Excess -7.3 L Oxyhemoglobin ABG O2 Sat (Calculated) ABG O2 Saturation ABG Carboxyhemoglobin ABG Methemoglobin Aureliano Test YES A-a O2 Difference 149.0 Total Hemoglobin Lactate 3.70 H Blood Gas Modality VENTILATOR Vent Mode A/C Spontaneous Rate 18 FiO2 % 40.0 Tidal Volume 550 PEEP 5.0 Pressure Support CPAP Sodium Potassium Chloride Carbon Dioxide Anion Gap BUN Creatinine Estimated GFR/1.73 m2 BUN/Creatinine Ratio Glucose POC Glucose Calculated Osmolality Calcium Phosphorus Total Bilirubin 15.63 H Direct Bilirubin > 10.00 H AST 171 H ALT 119 H Alkaline Phosphatase 186 H Total Protein 6.0 L Albumin 2.7 L Globulin 3.3 Albumin/Globulin Ratio 0.8 Random Vancomycin 10/19/19 10/19/19 10/19/19 06:28 10:55 11:37 WBC RBC Hgb Hct MCV MCH MCHC RDW Std Deviation Plt Count MPV Immature Gran % (Auto) Neut % (Auto) Lymph % (Auto) [place] % (Auto) Eos % (Auto) Baso % (Auto) Immature Gran # (Auto) Neut # (Auto) Lymph # (Auto) [place] # (Auto) Eos # (Auto) Baso # (Auto) PT INR PTT (Actin FS) Specimen Type Sample Site pH pCO2 pO2 HCO3 Base Excess Oxyhemoglobin ABG O2 Sat (Calculated) ABG O2 Saturation ABG Carboxyhemoglobin ABG Methemoglobin Aureliano Test A-a O2 Difference Total Hemoglobin Lactate Blood Gas Modality Vent Mode Spontaneous Rate FiO2 % Tidal Volume PEEP Pressure Support CPAP Sodium Potassium Chloride Carbon Dioxide Anion Gap BUN Creatinine Estimated GFR/1.73 m2 BUN/Creatinine Ratio Glucose POC Glucose 110 H 79 Calculated Osmolality Calcium Phosphorus Total Bilirubin Direct Bilirubin AST ALT Alkaline Phosphatase Total Protein Albumin Globulin Albumin/Globulin Ratio Random Vancomycin 19.60 10/19/19 14:29 WBC RBC Hgb Hct MCV MCH MCHC RDW Std Deviation Plt Count MPV Immature Gran % (Auto) Neut % (Auto) Lymph % (Auto) [place] % (Auto) Eos % (Auto) Baso % (Auto) Immature Gran # (Auto) Neut # (Auto) Lymph # (Auto) [place] # (Auto) Eos # (Auto) Baso # (Auto) PT INR PTT (Actin FS) Specimen Type ARTERIAL Sample Site R RADIAL pH 7.26 L pCO2 41 pO2 61 HCO3 18.4 L Base Excess -8.2 L Oxyhemoglobin 89.8 L* ABG O2 Sat (Calculated) 13.2 L ABG O2 Saturation 93.0 L ABG Carboxyhemoglobin 3.00 H ABG Methemoglobin 0.5 Aureliano Test YES A-a O2 Difference 173.0 Total Hemoglobin 10.4 L Lactate 3.90 H Blood Gas Modality VENTILATOR Vent Mode CPAP Spontaneous Rate FiO2 % 40.0 Tidal Volume PEEP Pressure Support 5.00 CPAP 5.0 Sodium Potassium Chloride Carbon Dioxide Anion Gap BUN Creatinine Estimated GFR/1.73 m2 BUN/Creatinine Ratio Glucose POC Glucose Calculated Osmolality Calcium Phosphorus Total Bilirubin Direct Bilirubin AST ALT Alkaline Phosphatase Total Protein Albumin Globulin Albumin/Globulin Ratio Random Vancomycin Assessment: Acute respiratory failure. Intubated on 10/10/19. Septic shock likely secondary to pneumonia and peritonitis. Pneumonia, bilateral. Sputum culture on 10/10/19 grew Oxacillin-sensitive Staphylococcus Aureus. CXR today shows significant improvement in the diffuse bilateral infiltrates. Liver cirrhosis due to hepatitis C. Shock liver. Disseminated intravascular coagulation. Acute kidney injury with metabolic acidosis and severe volume overload. On SLED per Dr. Ramirez. DNR 2. Multiple organ failure with high mortality and morbidity possibility. Plan: Continue current treatment and supportive care per admitting and other teams on the case. Start weaning trials today. Ventilation checked and titrated to the patients needs for clinical protocols with close monitoring. Sedation with prn morphine and prn Ativan titrated to the patients needs per clinical protocols with closely monitoring. Pressors (mariam drip) titrated to the patients needs per clinical protocols with closely monitoring. Antibiotic (Vancomycin and Zosyn) and antifungal Micafungin per Dr. Vivas, bronchodilators and IV Solu-Cortef. Discuss patient's condition and care plan with patient's daughter at the bedside. All questions have been answered. Evaluation time in minutes: 32 minutes.
[2019-10-19] MEDS: MYCAMINE 100 MG in NS 100 ML IV SCH (16:19)
[2019-10-19] MEDS: LACTULOSE PO SCH ×2 (16:19→20:48)
[2019-10-19] MEDS ORDERED: VANCOMYCIN 750 MG in NS 250 ML IV ONE (18:00)
--- NOTE | 2019-10-19 19:53 | INFECTIOUS DISEASE PROGRESS NO ---
DATE: 10/19/2019 PRESENT ILLNESS: The patient has pneumonia, peritonitis, and cirrhosis of the liver due to hepatitis C. MEDICATIONS: This is day 9 of Zosyn, day 5 of vancomycin and day 6 of micafungin. PHYSICAL EXAMINATION: Vital Signs: Temperature is 97.9 degrees, pulse 108, respirations 18, blood pressure 94/53. General: This is an ill-appearing middle-aged male. He is intubated and sedated. Head/eyes/ears/nose/throat: The patient has an orotracheal tube and a nasogastric tube in place. No drainage noted from the nose or ears. Neck: No stiffness. Lungs: Patient has bilateral rhonchi. Cardiovascular: Heart rate is regular. Abdomen: Protuberant. It is soft, and it is still draining into the ostomy where the drainage occurs. Neurologic: The patient is obtunded. He did not respond to verbal stimuli. Extremities: Both legs have peau d'orange skin, and they are edematous. LABORATORY DATA AND X-RAY: Chest x-ray shows improvement in bilateral infiltrates. The patient's CBC shows a white count of 23,350, hemoglobin 9 and platelet count 55,000. ASSESSMENT AND PLAN: The patient has pneumonia, peritonitis, and cirrhosis of the liver due to hepatitis C. I think the patient's white blood cell increase is because he is on high doses of steroids. I think his pneumonia is doing better as manifested by the chest x-ray. As mentioned above, the patient has pneumonia, peritonitis, and cirrhosis of the liver due to hepatitis C. My plan is to continue the current antimicrobial agents. COMORBIDITIES: Cirrhosis of the liver due to hepatitis C, psoriasis, chronic kidney disease, cigarette smoking, and chronic leg edema. cc: Clemente Vivas MD
--- NOTE | 2019-10-19 20:00 | GASTROENTEROLOGY PROGRESS NOTE ---
DATE: 10/19/2019 SUBJECTIVE: Patient continues to be intubated on mechanical ventilation. Per nurse report, he has had high residuals and tube feeding has been placed on hold. OBJECTIVE: Vital Signs: Temperature 97.9 degrees, pulse 108, respirations 18, blood pressure 94/53. General: Patient is intubated on mechanical ventilation. Abdomen: Distended. Ostomy bag over previous paracentesis site with no noted drainage in the bag at present time. Per intake and output report, drainage seems to be decreasing. LABORATORY: Hematology: WBC 23.35, hemoglobin 9.0, hematocrit 29.0, MCV 95.1, platelets 55,000. Coagulation: Protime 34.9, INR 3.35, PTT 53.2. Chemistry: Sodium 140, potassium 5.0, chloride 108, CO2 17, BUN 55, creatinine 3.7, glucose 114, phosphorus 5.7, total bilirubin 15.63, AST 171, ALT 119, alkaline phosphatase 186. ASSESSMENT AND PLAN: 1. Respiratory failure on mechanical ventilation. 2. Sepsis shock. 3. Pneumonia. Continue current management. 4. Acute kidney injury. Patient receiving SLED dialysis. 5. Encephalopathy. We will add lactulose today. 6. Constipation. Again, we will use lactulose. 7. Disseminated intravascular coagulation. Continue current management. 8. Liver cirrhosis, hepatitis C and elevated liver function tests. LFTs stable today. Continue current management. We will continue to follow. We will add lactulose 1 tablespoon twice daily. Restart feeding once able. I have discussed this case with Dr. Wheeler. Dictated by JEAN MARIE Chairez for Geronimo Wheeler MD cc: JEAN MARIE Smart MD
[2019-10-19] MEDS: PERIDEX MT SCH (20:48)
--- NOTE | 2019-10-19 22:51 | NEUROLOGY PROGRESS NOTE ---
DATE: 10/19/2019 SUBJECTIVE: No major overnight events. The patient was on a spontaneous breathing trial when I last saw him today. OBJECTIVE: Vital signs: Afebrile. Blood pressure currently 89/45. Pulse 108 to 124, respirations, he has been breathing over the vent is on a spontaneous breathing trial now. General: Mr. Moralez is supine in bed with eyes closed. At times, he seems to correction open them spontaneously. He does not respond to loud voice. He does not respond to sternal rub. I did not see a grimace today. I did not see withdrawal of the extremities today to noxious stimuli. Pupils are 5 mm right eye and I did not see definite reactivity today, 4 mm left eye with sluggish reactivity. There was some horizontal eye movement with passive head turning. Corneal responses were brisk bilaterally. No blink to threat. DIAGNOSTICS: Head CT noncontrast showing no evidence of acute findings. LABORATORY: White count has been trending up again at 23 today, platelet count 55,000. PT up to 35, INR up to 3.35, PTT 53. BUN up to 55 and creatinine up to 3.7. AST and ALT are down trending, current 171 and 119. His ammonia when last checked several days back was above 200. He has been started on lactulose today. He continues on Zosyn and vancomycin. He is also on micafungin. He has not received morphine or lorazepam in the last 2 days. ASSESSMENT AND PLAN: Remains with severe global encephalopathy, comatose, multifactorial. The patient is critically ill and has had multisystem organ failure and sepsis. There has not been p.r.n. sedation in the last [address] did not show acute findings. Again, he is very critically ill with multiple factors that could contribute to his depressed mental status. I cannot exclude the possibility of concomitant brain injury, time will tell. cc: Salina Bonilla MD
[2019-10-20] MEDS: NEO-SYNEPHRINE 100 MG in NS 250 ML IV SCH ×3 (00:02→23:47)
[2019-10-20] MEDS: ZOSYN 2.25 GM in NS 50 ML IV SCH ×3 (00:52→16:59)
[2019-10-20] MEDS: XOPENEX NEB INH SCH ×6 (02:48→23:30)
[2019-10-20] MEDS: ATROVENT NEB INH SCH ×6 (02:48→23:30)
[2019-10-20] MEDS: PROTONIX IV SCH ×2 (04:28→16:58)
[2019-10-20] MEDS: SOLU-CORTEF IV SCH ×4 (04:28→23:00)
[2019-10-20] MEDS: SODIUM CHLORIDE 0.9% INJ SCH ×2 (04:28→16:58)
[2019-10-20 05:03] LABS: ALLEN TEST YES; BE -8.1 mmoll (-3.0-3.0); BLOOD TYPE ARTERIAL; HCO3-(ACT) 18.6 mmoll (20.0-26.0); METHB 0.8 % (0.0-1.5); O2(CT) 13.9 mL/dL (15.0-23.0); O2HB 95.6 % (95.0-99.0); PCO2(98.6) 37 mmHg (35-45); PO2(98.6) 83 mmHg (60-100); SAMPLE BLOOD; SAO2 99.4 % (95.0-100.0); SRATE 18 BPM; THB 10.3 g/dL (11.5-17.4); TVOL 550 mL; pH(98.6) 7.29 (7.35-7.45)
[2019-10-20 05:08] LABS: MODALITY VENTILATOR
[2019-10-20 06:07] LABS: BASO# 0.07 X1000 (0.0-0.2); BASO% 0.2 % (0.0-0.8); EOS# 0.02 X1000 (0.0-0.7); EOS% 0.1 % (0.0-10.0); HEMATOCRIT 30.9 % (42.0-52.0); HEMOGLOBIN 9.8 g/dL (14.0-18.0); IMM GRAN# 0.22 X1000 (0.0-0.04); IMM GRAN% 0.7 % (0.0-0.5); LYMPH# 2.53 X1000 (1.2-3.4); LYMPH% 7.9 % (20.5-51.1); MCH 30.2 PG (27-31); MCHC 31.7 g/dL (33-37); MCV 95.1 FL (81-99); MONO# 2.46 X1000 (0.11-0.59); MONO% 7.7 % (1.7-9.3); MPV 11.6 FL (7.4-10.4); NEUT# 26.79 X1000 (1.4-6.5); NEUT% 83.4 % (42.2-75.2); PLT 56 X1000 (130-400); RBC 3.25 XMIL (4.7-6.1); RDW 23.2 % (11.5-14.5); WBC 32.09 X1000 (4.8-10.8)
[2019-10-20 06:12] LABS: INR 3.97
[2019-10-20 06:15] LABS: PROTIME 40.1 Seconds (11.0-16.0)
[2019-10-20 06:26] LABS: ALB/GLOB RATIO 0.8; ALBUMIN 2.6 g/dL (3.5-5.0); ALKALINE PHOSPHATASE 182 U/L (32-122); GOT 161 U/L (10-34); GPT 115 U/L (10-44); TOTAL BILIRUBIN 17.49 mg/dL (0.20-1.00); TOTAL PROTEIN 5.8 g/dL (6.3-8.3)
[2019-10-20 06:48] LABS: DIRECT BILIRUBIN > 10.00 mg/dL (0.00-0.20)
[2019-10-20] MEDS ORDERED: NS 2,000 ML MISC PRN (06:54)
--- NOTE | 2019-10-20 07:16 | Diag Imaging Result Doc PS360 ---
EXAM: CHEST-PORTABLE 10/20/2019 HISTORY: Pneumonia TECHNIQUE: AP portable at 0535 COMMENT: There is interstitial opacity bilaterally. This is improved slightly since 10/19/2019. The endotracheal tube and NG tube remain. IMPRESSION: Slightly improved pulmonary edema. Electronically signed by Triston Hurley 10/20/2019 7:14 AM
[2019-10-20 07:41] LABS: LYMPHS 2 % (21-51); SEGS 94 % (42-75)
[2019-10-20 08:31] LABS: ALBUMIN 2.6 g/dL (3.5-5.0); CALCIUM 9.5 mg/dL (8.8-10.2); CREATININE 3.9 mg/dL (0.7-1.2); PHOSPHORUS 5.7 mg/dL (2.7-4.5); POTASSIUM 4.9 mmol/L (3.5-5.1)
[2019-10-20] MEDS: DULCOLAX PR SCH ×2 (09:58→20:03)
[2019-10-20] MEDS: LACTULOSE PO SCH ×2 (09:58→20:02)
[2019-10-20] MEDS: PERIDEX MT SCH ×2 (09:58→20:02)
--- NOTE | 2019-10-20 10:11 | HEMO/ONC PROGRESS NOTE ---
DATE: 10/20/2019 SUBJECTIVE: There is very little change in Mr. Moralez's status at this time. He remains intubated. He remains nonresponsive. He is unresponsive to painful stimuli. He remains on pressors, is undergoing SLED. His status remains critical. OBJECTIVE: Vital Signs: Temperature 97.9 degrees, pulse rate 98, respiratory rate 18, blood pressure 111/67, O2 saturation is 97% on mechanical ventilation at 40% oxygen flow. General: This is a very ill-appearing gentleman on a ventilator, supine in ICU bed. HEENT: Pupils are sluggish. Oral mucosa is dry. Cardiovascular: Heart rate and rhythm are regular. Tachycardic rate and rhythm. Normal S1, S2. No murmur heard. Respiratory: Diminished breath sounds throughout. Rhonchi noted to upper lungs. Gastrointestinal: Abdomen is firm and distended. Extremities: Significant lower extremity edema. The patient has on heel pads bilaterally for edema as well. : Severe penile and scrotal edema. IMAGING AND LABORATORY DATA: WBCs 32.09, hemoglobin 9.8, hematocrit 30.9, platelet count 56,000. PT 40.1, PTT 59.7, INR 3.97. Creatinine 3.9. Total bilirubin 17.49, direct greater than 10, AST 161, ALT 115, alkaline phosphatase 182, total protein 5.8, ammonia 58, albumin 2.6. Chest x-ray shows slightly improved pulmonary edema. ASSESSMENT AND PLAN: 1. Hypercapnic and hypoxic respiratory failure. The patient remains on full ventilator support. Continue management per hospitalist. 2. Septic shock. The patient continues to be in need of pressors and broad- spectrum antibiotics. Continue management per hospitalist. 3. Bilateral lobe pneumonia secondary to oxacillin-sensitive Staphylococcus aureus. Continue management per hospitalist and Dr. Vivas. 4. Thrombocytopenia and disseminated intravascular coagulation. Continue to support the patient with fresh frozen plasma as necessary. We are continuing to monitor his numbers. 5. Shock liver. The patient's liver appears to be failing. His bilirubin is continuing to increase. We are continuing to monitor. 6. Liver cirrhosis, hepatitis C, peritonitis. Aware. 7. Anemia. Continue to support the patient with blood transfusions as needed. Gastroenterology suspects that he had a small gastrointestinal bleed. 8. Severe global encephalopathy. The patient is comatose, which is multifactorial. He has not had any sedation in the last 2 days. He does not respond to painful stimuli. Dictated by JEAN MARIE Almanzar for Freddie Galvan MD cc: Freddie Galvan MD [facility]
--- NOTE | 2019-10-20 10:15 | Diag Imaging Result Doc PS360 ---
EXAM: ABDOMEN FLAT/UPRIGHT 10/20/2019 HISTORY: Rule out SBO TECHNIQUE: Flat and upright abdomen COMMENT: There is an NG tube with its tip in the stomach and an endotracheal tube with its tip approximately 4 cm above the roz. There is apparent bilateral femoral venous lines. There is gas in the stomach. There is very little bowel gas. No evidence of organomegaly or mass is present. Compared to 10/16/2019 there is more gas in the stomach and there is a slightly gas distended small bowel loop in the left upper quadrant which was not evident on the previous study. IMPRESSION: Nonspecific abdomen. Electronically signed by Triston Hurley 10/20/2019 10:12 AM
--- NOTE | 2019-10-20 10:49 | PROGRESS NOTE ---
DATE: 10/20/2019 INTERVAL HISTORY: No acute events overnight. The patient underwent dialysis yesterday. After that, he started becoming hypotensive and his pressor medication had to be increased. I had informed the plan of care with the patient's 2 relatives at bedside. Unfortunately, I could not talk with his daughter. No other acute overnight events. SUBJECTIVE: Mr. Moralez still remains on intubation. He is currently overbreathing on the ventilator but does not respond to commands. VITALS: Temperature of 97.9 degrees, pulse rate 98, respiratory rate 18 to 26, blood pressure 110/67, he is saturating 97% on mechanical ventilation. PHYSICAL EXAMINATION: He has scleral icterus, digital clubbing, endotracheal tube, OG tube, urine catheter, bilateral groin central venous catheters, and a bag attached to his left lower quadrant of the abdomen for leaking ascitic fluid. Lungs: Air entry bilaterally equal. No wheeze or rhonchi. Mild crackles in both lung rag[place]. He has generalized anasarca. Abdomen is dull to percussion. No bowel sounds. S1, S2 normal. No murmur, rub, or gallop. He has lymphedema affecting bilateral lower extremities which appears significantly better than on presentation. He does not respond to painful stimuli. He has intact corneal reflexes in both eyes. He also has intact pupillary reflex on the left. I could not appreciate pupillary reflex very well on the right. He has intact cough. He is not withdrawing to painful stimuli. I could not elicit reflexes properly, considering his anasarca. However, he did not respond to Babinski. LABS: Suggestive of WBCs of 32,000, hemoglobin 9.8, platelets 56,000. PH of 7.29, PO2 of 83 on 40% FiO2. His BUN is 57, creatinine of 3.9. He has persistent hyperbilirubinemia. MICROBIOLOGY: No positive data. IMAGING: Chest x-ray performed has a slight improvement in pulmonary edema. ASSESSMENT AND PLAN: 1. Acute hypoxic, hypercapnic respiratory failure, multifactorial. Continue mechanical ventilation as per pulmonology recommendations. Albuterol-ipratropium inhaled bronchodilators, pantoprazole for stress ulcer prophylaxis, and chlorhexidine for ventilator- associated pneumonia prophylaxis. Considering his coagulopathy, he is not on chemical deep venous thrombosis prophylaxis. 2. Septic shock with sources being acute peritonitis, methicillin-sensitive Staphylococcus aureus pneumonia. Continue intravenous vancomycin, Zosyn, micafungin. Continue intravenous phenylephrine for MAP goal of more than 65 mmHg. Appreciate infectious disease recommendations. 3. Acute kidney injury with anuria, likely due to septic shock leading to anasarca and volume overload. Continue dialysis as per nephrology recommendations. 4. Disseminated intravascular coagulation, thrombocytopenia due to decompensated liver cirrhosis due to chronic active hepatitis C as well as shock liver. Hematology/oncology and gastroenterology on board. We will give transfusion of fresh frozen plasma, packed red blood cells, and platelets as necessary. He is status post 4 units of packed red blood cells, 4 units of fresh frozen plasma, and 1 unit of platelets so far. 5. Acute upper gastrointestinal bleed due to decompensated liver cirrhosis. Continue intravenous pantoprazole intravenously twice a day. His hemoglobin is stable. 6. Nutrition. I will follow up with abdominal x-ray to rule out small-bowel obstruction and we are giving lactulose to make sure he has a bowel movement. Accordingly, we will consider giving him another tube feed challenge. 7. Acute encephalopathy. CT scan head yesterday did not have any acute stroke, acute cerebrovascular accident. His current encephalopathy could be in the setting of toxic metabolic insult sustained during last few days of critical illness including multiple metabolic derangements. Neurology team on board. Appreciate recommendations. 8. Disposition. More than 30 minutes of critical care time were spent taking care of this patient. I talked with the patient's daughter on the phone, who is next of kin. I explained to her about the patient's critical condition. She initially requested a meeting with all the doctors and the hospital director together to have a discussion about his clinical condition. I informed her that, unfortunately, it could not be possible. I tried to answer all of her questions and explained to her about Mr. Moralez's critical condition. She was especially worried about his poor mental status and I tried to explain to her about multiple metabolic as well as critical illness-induced toxic derangement possibly contributing to his global encephalopathy. I also expressed to her that as well as neurological recovery was concerned, it was hard for me to predict. However, I did mention that his CT scan did not have any stroke and his metabolic derangement looked less worse in the last couple of days than it did 7 days ago. She is requesting to transfer Mr. Moralez to another facility for better care and I would consider contacting [facility]. However, I also explained to Mr. Moralez's daughter that considering he may not need services which could not be availed in [facility], he may not be accepted. However, I will try and contact [facility]. cc: Jean Marie Goodwin MD
[2019-10-20 11:27] LABS: ALLEN TEST YES; BE -7.8 mmoll (-3.0-3.0); BLOOD TYPE ARTERIAL; HCO3-(ACT) 18.8 mmoll (20.0-26.0); METHB 1.1 % (0.0-1.5); O2(CT) 14.1 mL/dL (15.0-23.0); O2HB 93.5 % (95.0-99.0); PCO2(98.6) 42 mmHg (35-45); PO2(98.6) 72 mmHg (60-100); SAMPLE BLOOD; SAO2 97.6 % (95.0-100.0); THB 10.7 g/dL (11.5-17.4); pH(98.6) 7.26 (7.35-7.45)
[2019-10-20 11:28] LABS: MODALITY VENTILATOR
[2019-10-20] MEDS ORDERED: MILK OF MAGNESIA PO ONE (14:20)
--- NOTE | 2019-10-20 16:02 | PROVIDER PROGRESS NOTE ---
Progress Note Subjective: Intubated. No family at bedside. Objective: temperature 98.1, pulse 98, respirations 18, blood pressure 116/73, 02 sat 99% on 40% FiO2 mechanical ventilation. General: Chronically ill appearing -[place] male in no acute distress. HEENT: normocephalic, atraumatic, conjunctiva pink,pupils equal and non reactive. Mucous membranes moist. Trachea midline. NG tube in place. Skin: Warm. Colostomy bag in place to abdomen at paracentesis site for continuous drainage. Neck: supple, 8cm JVD observed. Cardiovascular: [id number], tachycardic rate and rhythm. No murmur. Respiratory: diminished bases anteriorly bilaterally. Abdomen: slightly firm, distended, nontender. No bowel sounds. :non inspected, ryan in place with no urine. Extremities: generalized pitting edema 3+ greater in the bilateral lower extremities with chronic lymphedema. Left groin central line. Right groin vascath. Neurological: obtunded. Labs: WBC 32.09, hemoglobin 9.8, hematocrit 30.9, platelet count 56, sodium 136, potassium 4.9, chloride 104, carbon dioxide 15, BUN 57, creatinine 3.9. Albumin 2.6. Intake 916, output 2703. Impression: Acute kidney injury without recovery. BUN and creatinine continue to rise Despite SLED yesterday with a 2.6L ultrafiltration. We will attempt SLED again today with a 2K bath. Blood pressure. He remains on Alec-Synephrine. Fluid volume. Overloaded. We will attempt SLED today with goal of 2-4 liters as BP allows. Anemia. Stable. Thrombocytopenia. Stable without improvement. Electrolytes and acid base balance. Stable. Medication review. No changes. Nutrition. Tube feeding on hold.
[2019-10-20] MEDS: MYCAMINE 100 MG in NS 100 ML IV SCH (16:58)
[2019-10-20] MEDS: D50W SYRINGE IV PRN (16:58)
[2019-10-20] MEDS ORDERED: VANCOMYCIN 750 MG in NS 250 ML IV ONE (17:00)
--- NOTE | 2019-10-20 17:01 | PROVIDER PROGRESS NOTE ---
Progress Note Dr. Robles Progress Note/Pulmonary and or critical care Subjective: The patient remained intubated. He is still unresponsive to painful stimuli. SLEDD was completed at an earlier time. He has been on CPAP trial over 2 hour and last ABG shows acidemia with pH 7.26. NG tube feeing has been held since this morning because of high residual. He is still on Mariam drip at 125 mcg/min. No family at the bedside. Input is appreciated from Dr. Goodwin and other teams on the case. Objective: Vital Signs: 98.6 (No fever in last 24 hours), UT 107, RR 18, BP 105/65 and SaO2 100 on CPAP 5, 40%. I/O -1787 ml Physical Examination: General: Intubated. Lying in bed with no acute distress noted. HEENT: Normocephalic. Atraumatic. Mucus pink and moist. ET tube in place. Chest: Even and unlabored. Symmetrical excursion. Diminished breathing sounds bilaterally with mild inspiratory crackles bibasilarly. CVS: Tachycardia. S1 and S2 appreciated. Abdomen: Distended. Firm. Anasarca. A bag attached to LLQ at the previous paracentesis site with some drainage inside. No bowel sounds noted. Extremities: BLE severe edema with peau dorange skin and chronic stasis change. BUE pitting edema 1+. Neuro: Non-sedated. Unresponsive to painful stimuli. Labs and Radiology: Laboratory Results 10/19/19 10/20/19 10/20/19 20:42 04:52 05:30 WBC RBC Hgb Hct MCV MCH MCHC RDW Std Deviation Plt Count MPV Immature Gran % (Auto) Neut % (Auto) Lymph % (Auto) [place] % (Auto) Eos % (Auto) Baso % (Auto) Immature Gran # (Auto) Neut # (Auto) Lymph # (Auto) [place] # (Auto) Eos # (Auto) Baso # (Auto) Segmented Neutrophils Lymphocytes Unidentified Cells PT INR PTT (Actin FS) Specimen Type ARTERIAL Sample Site R RADIAL pH 7.29 L pCO2 37 pO2 83 HCO3 18.6 L Base Excess -8.1 L Oxyhemoglobin 95.6 ABG O2 Sat (Calculated) 13.9 L ABG O2 Saturation 99.4 ABG Carboxyhemoglobin 3.00 H ABG Methemoglobin 0.8 Aureliano Test YES A-a O2 Difference 156.0 Total Hemoglobin 10.3 L Lactate 3.80 H Blood Gas Modality VENTILATOR Vent Mode A/C Spontaneous Rate 18 FiO2 % 40.0 Tidal Volume 550 PEEP 5.0 Pressure Support CPAP Sodium 136 Potassium 4.9 Chloride 104 Carbon Dioxide 15 L Anion Gap 17 BUN 57 H Creatinine 3.9 H Estimated GFR/1.73 m2 19 BUN/Creatinine Ratio 15 Glucose 97 POC Glucose 77 Calculated Osmolality 288 Calcium 9.5 Phosphorus 5.7 H Total Bilirubin Direct Bilirubin AST ALT Alkaline Phosphatase Ammonia Total Protein Albumin 2.6 L Globulin Albumin/Globulin Ratio 10/20/19 10/20/19 10/20/19 05:30 05:30 05:30 WBC 32.09 H RBC 3.25 L Hgb 9.8 L Hct 30.9 L MCV 95.1 MCH 30.2 MCHC 31.7 L RDW Std Deviation 23.2 H Plt Count 56 L MPV 11.6 H Immature Gran % (Auto) 0.7 H Neut % (Auto) 83.4 H Lymph % (Auto) 7.9 L [place] % (Auto) 7.7 Eos % (Auto) 0.1 Baso % (Auto) 0.2 Immature Gran # (Auto) 0.22 H Neut # (Auto) 26.79 H Lymph # (Auto) 2.53 [place] # (Auto) 2.46 H Eos # (Auto) 0.02 Baso # (Auto) 0.07 Segmented Neutrophils 94 H Lymphocytes 2 L Unidentified Cells 4.0 PT 40.1 H INR 3.97 PTT (Actin FS) Specimen Type Sample Site pH pCO2 pO2 HCO3 Base Excess Oxyhemoglobin ABG O2 Sat (Calculated) ABG O2 Saturation ABG Carboxyhemoglobin ABG Methemoglobin Aureliano Test A-a O2 Difference Total Hemoglobin Lactate Blood Gas Modality Vent Mode Spontaneous Rate FiO2 % Tidal Volume PEEP Pressure Support CPAP Sodium Potassium Chloride Carbon Dioxide Anion Gap BUN Creatinine Estimated GFR/1.73 m2 BUN/Creatinine Ratio Glucose POC Glucose Calculated Osmolality Calcium Phosphorus Total Bilirubin Direct Bilirubin AST ALT Alkaline Phosphatase Ammonia 58 Total Protein Albumin Globulin Albumin/Globulin Ratio 10/20/19 10/20/19 10/20/19 05:30 05:30 05:53 WBC RBC Hgb Hct MCV MCH MCHC RDW Std Deviation Plt Count MPV Immature Gran % (Auto) Neut % (Auto) Lymph % (Auto) [place] % (Auto) Eos % (Auto) Baso % (Auto) Immature Gran # (Auto) Neut # (Auto) Lymph # (Auto) [place] # (Auto) Eos # (Auto) Baso # (Auto) Segmented Neutrophils Lymphocytes Unidentified Cells PT INR PTT (Actin FS) 59.7 H Specimen Type Sample Site pH pCO2 pO2 HCO3 Base Excess Oxyhemoglobin ABG O2 Sat (Calculated) ABG O2 Saturation ABG Carboxyhemoglobin ABG Methemoglobin Aureliano Test A-a O2 Difference Total Hemoglobin Lactate Blood Gas Modality Vent Mode Spontaneous Rate FiO2 % Tidal Volume PEEP Pressure Support CPAP Sodium Potassium Chloride Carbon Dioxide Anion Gap BUN Creatinine Estimated GFR/1.73 m2 BUN/Creatinine Ratio Glucose POC Glucose 91 Calculated Osmolality Calcium Phosphorus Total Bilirubin 17.49 H Direct Bilirubin > 10.00 H AST 161 H ALT 115 H Alkaline Phosphatase 182 H Ammonia Total Protein 5.8 L Albumin 2.6 L Globulin 3.2 Albumin/Globulin Ratio 0.8 10/20/19 11:16 WBC RBC Hgb Hct MCV MCH MCHC RDW Std Deviation Plt Count MPV Immature Gran % (Auto) Neut % (Auto) Lymph % (Auto) [place] % (Auto) Eos % (Auto) Baso % (Auto) Immature Gran # (Auto) Neut # (Auto) Lymph # (Auto) [place] # (Auto) Eos # (Auto) Baso # (Auto) Segmented Neutrophils Lymphocytes Unidentified Cells PT INR PTT (Actin FS) Specimen Type ARTERIAL Sample Site R RADIAL pH 7.26 L pCO2 42 pO2 72 HCO3 18.8 L Base Excess -7.8 L Oxyhemoglobin 93.5 L ABG O2 Sat (Calculated) 14.1 L ABG O2 Saturation 97.6 ABG Carboxyhemoglobin 3.10 H ABG Methemoglobin 1.1 Aureliano Test YES A-a O2 Difference 161.0 Total Hemoglobin 10.7 L Lactate 3.40 H Blood Gas Modality VENTILATOR Vent Mode CPAP Spontaneous Rate FiO2 % 40.0 Tidal Volume PEEP Pressure Support 5.00 CPAP 5.0 Sodium Potassium Chloride Carbon Dioxide Anion Gap BUN Creatinine Estimated GFR/1.73 m2 BUN/Creatinine Ratio Glucose POC Glucose Calculated Osmolality Calcium Phosphorus Total Bilirubin Direct Bilirubin AST ALT Alkaline Phosphatase Ammonia Total Protein Albumin Globulin Albumin/Globulin Ratio Assessment: Acute respiratory failure. Intubated on 10/10/19. Septic shock likely secondary to pneumonia and peritonitis. Pneumonia, bilateral. Sputum culture on 10/10/19 grew Oxacillin-sensitive Staphylococcus Aureus. CXR today shows slightly improved interstitial opacity bilaterally. Liver cirrhosis due to hepatitis C. Shock liver. Disseminated intravascular coagulation. Acute kidney injury with metabolic acidosis and severe volume overload. On SLED per Dr. Ramirez. DNR 2. Multiple organ failure with high mortality and morbidity possibility. Plan: Continue current treatment and supportive care per admitting and other teams on the case. Start weaning trials on 10/19/19. Abort weaning trials as patient remains acidotic, obtunded and hypotensive. We will reassess tomorrow. We check Ventilation and titrate to the patients needs for clinical protocols. We will keep closely monitoring patients clinical response. We titrate Sedation with prn morphine and prn Ativan to the patients needs per clinical protocols. We will keep closely monitoring patients clinical response. We titrate Pressors (mariam drip) to the patients needs per clinical protocols. We will keep closely monitoring patients clinical response. Antibiotic (Vancomycin and Zosyn) and antifungal Micafungin per Dr. Vivas, bronchodilators and IV Solu-Cortef. Continue GI and DVT prophylaxis. Evaluation time in minutes: 34 minutes.
--- NOTE | 2019-10-20 17:16 | INFECTIOUS DISEASE PROGRESS NO ---
DATE: 10/20/2019 PRESENT ILLNESS: The patient has pneumonia, peritonitis, and cirrhosis of the liver due to hepatitis C. MEDICATIONS: This is day 10 of treatment with Zosyn, day 7 of treatment with micafungin and day 5 of treatment with vancomycin. PHYSICAL EXAMINATION: Vital Signs: Temperature is 97.9 degrees, pulse 98, respirations 18, blood pressure 111/67. General: This is an ill-appearing, middle-aged male. He is intubated and sedated. Head/eyes/ears/nose/throat: Patient has a nasogastric tube and an orotracheal tube in place. The patient has scleral icterus. Neck: No stiffness. Lungs: Clear to auscultation. Cardiovascular: Heart rate is regular. Abdomen: Soft and not tender but it is protuberant. The patient's area where it was draining ascitic fluid is cutting back. Neurologic: The patient is sedated. He did not respond to verbal stimuli. Extremities: The patient has bilateral groin catheters. Both sites are not purulent or bleeding. LABORATORY AND X-RAY: Chest x-ray shows improvement in the patient's pulmonary edema. CBC shows a white count of 32,090, hemoglobin 9.8, platelet count 56,000. Blood gases show a pH of 7.29, a PO2 of 83, and a pCO2 of 37. The creatinine is 3.9. GFR is 19. Bilirubin is 17.49. ASSESSMENT AND PLAN: Patient has pneumonia, peritonitis and cirrhosis of the liver due to hepatitis C. My plan is to continue micafungin, vancomycin and Zosyn. COMORBIDITIES: Cirrhosis of the liver due to hepatitis C, chronic kidney disease, cigarette smoking, and chronic leg edema. cc: Clemente Vivas MD [facility]
--- NOTE | 2019-10-20 21:20 | GASTROENTEROLOGY PROGRESS NOTE ---
DATE: 10/20/2019 SUBJECTIVE: The patient remains intubated on mechanical ventilation. He is not receiving sedation. He is nonresponsive. He did have a cough reflex with suctioning when I was making rounds. Dr. Robles was also there evaluating the patient. Nurse states he has not had a bowel movement since starting lactulose. His tube feedings are on hold due to high residuals. Lab values reviewed. Total bilirubin is worse today. AST, ALT, and alkaline phosphatase slightly improved. Ammonia 58. OBJECTIVE: Vital Signs: Temperature 98.6 degrees, pulse 107, respirations 18, blood pressure 105/65. General: The patient is intubated on mechanical ventilation. He did have cough reflex with suctioning, otherwise nonresponsive. Abdomen: Distended. He has an ostomy bag from previous paracentesis site with only a small amount of drainage noted. He will receive SLED dialysis later today. LABORATORY DATA: Hematology: WBC 32.09, hemoglobin 9.8, hematocrit 30.9, MCV 95.1, platelets 56,000. Coagulation: Protime 40.1, INR 3.97. Chemistry: Sodium 136, potassium 4.9, chloride 104, CO2 15, BUN 57, creatinine 3.9, glucose 97, calcium 9.5, phosphorus 5.7, total bilirubin 17.49, AST 161, ALT 115, alkaline phosphatase 182, ammonia 58. ASSESSMENT AND PLAN: 1. Respiratory failure on mechanical ventilation. 2. Sepsis with findings of peritonitis, methicillin sensitive Staphylococcus aureus pneumonia. He is on antibiotics. 3. Acute kidney injury. Patient has been receiving SLED dialysis. Following with Nephrology. 4. Disseminated intravascular coagulation/thrombocytopenia. Following with Hematology. 5. Encephalopathy. Patient had a CT scan of the head that did not show evidence of acute stroke. 6. Elevated liver function tests. Continue to monitor. 7. Nutrition status. The patient has had high residuals and has not been able to receive his tube feedings. Lactulose twice daily was started. We will give a dose of milk of magnesia today. 8. Leukocytosis. There is question of possible relation to Solu-Cortef. Continue current management per other medical team. We will continue to follow and further plans will be made according to progress. There was no family at the bedside at the time of my visit. I have discussed this case with Dr. Wheeler. Dictated by JEAN MARIE Chairez for Geronimo Wheeler MD cc: JEAN MARIE Smart MD
[2019-10-21] MEDS: ZOSYN 2.25 GM in NS 50 ML IV SCH ×3 (00:02→15:38)
[2019-10-21] MEDS: PROTONIX IV SCH ×2 (03:08→15:38)
[2019-10-21] MEDS: SOLU-CORTEF IV SCH ×4 (03:22→21:05)
[2019-10-21] MEDS: XOPENEX NEB INH SCH ×6 (03:33→23:33)
[2019-10-21] MEDS: ATROVENT NEB INH SCH ×6 (03:33→23:34)
[2019-10-21 05:20] LABS: ALLEN TEST YES; BE -7.5 mmoll (-3.0-3.0); BLOOD TYPE ARTERIAL; HCO3-(ACT) 19.1 mmoll (20.0-26.0); METHB 0.9 % (0.0-1.5); O2(CT) 6.1 mL/dL (15.0-23.0); O2HB 95.9 % (95.0-99.0); PCO2(98.6) 37 mmHg (35-45); PO2(98.6) 68 mmHg (60-100); SAMPLE BLOOD; SAO2 99.2 % (95.0-100.0); SRATE 18 BPM; THB 4.4 g/dL (11.5-17.4); TVOL 550 mL
[2019-10-21 05:24] LABS: MODALITY VENTILATOR
[2019-10-21] MEDS ORDERED: NS 2,000 ML MISC PRN (06:29)
--- NOTE | 2019-10-21 06:38 | Diag Imaging Result Doc PS360 ---
CHEST-PORTABLE - 10/21/2019 INDICATION: Pneumonia COMPARISON: 10/20/2019 FINDINGS: Support tubes are stable and in good position. Stable significantly low lung volumes. Stable hazy bibasilar interstitial infiltrates, nonspecific. Heart size is normal. No pneumothorax or large pleural effusion. IMPRESSION: Stable hazy bibasilar infiltrates, nonspecific. Electronically signed by Ernie Domínguez 10/21/2019 6:35 AM
[2019-10-21 06:46] LABS: BASO# 0.03 X1000 (0.0-0.2); BASO% 0.1 % (0.0-0.8); HEMATOCRIT 30.8 % (42.0-52.0); HEMOGLOBIN 9.8 g/dL (14.0-18.0); IMM GRAN# 0.26 X1000 (0.0-0.04); IMM GRAN% 0.7 % (0.0-0.5); LYMPH# 1.68 X1000 (1.2-3.4); LYMPH% 4.6 % (20.5-51.1); MCH 29.7 PG (27-31); MCHC 31.8 g/dL (33-37); MCV 93.3 FL (81-99); MONO# 2.95 X1000 (0.11-0.59); MONO% 8.1 % (1.7-9.3); MPV 11.1 FL (7.4-10.4); NEUT# 31.64 X1000 (1.4-6.5); NEUT% 86.5 % (42.2-75.2); PLT 51 X1000 (130-400); RDW 23.1 % (11.5-14.5); WBC 36.56 X1000 (4.8-10.8)
[2019-10-21 07:25] LABS: ALB/GLOB RATIO 0.6; ALBUMIN 2.4 g/dL (3.5-5.0); ALBUMIN 2.5 g/dL (3.5-5.0); ALKALINE PHOSPHATASE 213 U/L (32-122); CREATININE 4.9 mg/dL (0.7-1.2); DIRECT BILIRUBIN > 10.00 mg/dL (0.00-0.20); GOT 209 U/L (10-34); GPT 127 U/L (10-44); PHOSPHORUS 6.4 mg/dL (2.7-4.5); POTASSIUM 5.3 mmol/L (3.5-5.1); TOTAL BILIRUBIN 18.49 mg/dL (0.20-1.00); TOTAL PROTEIN 6.1 g/dL (6.3-8.3)
[2019-10-21] MEDS: LACTULOSE PO SCH ×2 (08:36→20:16)
[2019-10-21] MEDS: PERIDEX MT SCH ×2 (08:36→20:16)
[2019-10-21] MEDS: CLINIMIX E 4.25%-5% SOLUTION 1,000 ML IV SCH (08:37)
[2019-10-21] MEDS: DULCOLAX PR SCH ×2 (09:21→20:16)
--- NOTE | 2019-10-21 13:06 | PROGRESS NOTE ---
DATE: 10/21/2019 INTERVAL HISTORY: No acute events overnight. He continues to have worsening leukocytosis, lactic acidosis, and thrombocytopenia. SUBJECTIVE: He is intubated not responding. VITALS: Temperature of 98.4 degrees, pulse 94, respiratory 18, and blood pressure 170/73. He is saturating 100% on mechanical ventilation. PHYSICAL EXAMINATION: HEENT: He has scleral icterus. Digital clubbing. Endotracheal tube. OG tube, urine catheter, bilateral groin femoral central venous catheter, and a bag attached to his left lower quadrant at the site of leaking ascitic fluid. Lungs: Air entry bilaterally equal. No wheezing or rhonchi. Mild crackles in infrascapular inframammary region. Cardiovascular: S1, S2 normal. No murmur, rub, or gallop. Abdomen: Soft. Dullness to percussion. No bowel sounds. Lymphatic: He has lymphedema affecting bilateral lower extremities. Neurologic: He does not respond to painful stimuli. He has intact corneal reflexes both eyes. He has intact pupillary reflex on the left. I could not elicit proper pupillary reflex on the right. INPUT AND OUTPUT: Input and output suggest net balance is -140 mL. LABORATORY: Labs [place] of [place] [address], hemoglobin 9.8, and platelet 51,000. PT of 59. His ABG suggestive of lactic acidosis of 4, BUN of 72, and creatinine 4.9. He continues to have worsening total bilirubin. MICROBIOLOGY: No positive data. Chest x-ray suggests stable bilateral bibasilar infiltrate. Abdominal x-ray performed yesterday did not have any specific abnormalities. There was gas in the stomach. There was very little bowel gas. ASSESSMENT AND PLAN: 1. Acute hypoxic hypercapnic respiratory failure, multifactorial. Continue mechanical ventilation as per pulmonology recommendation, albuterol ipratropium, bronchodilators, pantoprazole for stress ulcer prophylaxis, chlorhexidine for ventilator associated pneumonia prophylaxis. He is not on any chemical anticoagulation due to ongoing coagulopathy. 2. Septic shock from acute peritonitis, MSSA pneumonia. Continue intravenous vancomycin, Zosyn, micafungin as per Infectious Disease recommendation. He continues to have leukocytosis. I will keep him on phenylephrine with goal more than 65 mmHg. Appreciate Infectious Disease recommendations. 3. Acute kidney injury with anuria due to septic shock leading to acute tubular necrosis. Continue dialysis as per Nephrology recommendations. 4. Disseminated intravascular coagulation, thrombocytopenia due to decompensated liver cirrhosis due to chronic active hepatitis C as well as shock liver. Heme-Onc and GI on board. He is status post 4 units of PRBC, 4 units of FFP and 1 unit of platelets so far. I will transfuse as needed. 5. Acute upper gastrointestinal bleed due to decompensated liver cirrhosis. No signs of active bleeding. Continue intravenous pantoprazole IV b.i.d. 6. Nutrition. The patient has not had any bowel movement, and has not been tolerating NG tube feeding. I will start him on intravenous Clinimix. 7. Acute encephalopathy. CT scan head did not have any acute stroke, likely multifactorial global encephalopathy. Appreciate neurology recommendation. 8. Disposition. Mr. Moralez's condition is critical. More than 30 minutes of critical care time was spent in taking of this patient. Yesterday, I had a discussion with the patient's daughter. I reached out to [facility], [facility] as well as [facility]. However, they did not have any beds available. I was also informed by the nursing team that the patient's daughter had later on agreed to keep the patient inside [facility]. cc: Jean Marie Goodwin MD
[2019-10-21] MEDS: NEO-SYNEPHRINE 100 MG in NS 250 ML IV SCH (13:23)
[2019-10-21] MEDS: MYCAMINE 100 MG in NS 100 ML IV SCH (13:25)
[2019-10-21] MEDS: HALDOL IV PRN (14:00)
[2019-10-21 14:25] LABS: ALLEN TEST YES; BLOOD TYPE ARTERIAL; HCO3-(ACT) 19.4 mmoll (20.0-26.0); O2(CT) 18.4 mL/dL (15.0-23.0); O2HB 96.4 % (95.0-99.0); PCO2(98.6) 33 mmHg (35-45); PO2(98.6) 96 mmHg (60-100); SAMPLE BLOOD; SAO2 100.4 % (95.0-100.0); THB 13.5 g/dL (11.5-17.4); pH(98.6) 7.34 (7.35-7.45)
[2019-10-21 14:26] LABS: MODALITY VENTILATOR
--- NOTE | 2019-10-21 14:55 | INFECTIOUS DISEASE PROGRESS NO ---
DATE: 10/21/2019 PRESENT ILLNESS: The patient has pneumonia, peritonitis, and cirrhosis of the liver due to hepatitis C. MEDICATIONS: This is day 11 of Zosyn, day 8 of micafungin and day 6 of vancomycin. PHYSICAL EXAMINATION: Vital Signs: Temperature is 98.4 degrees, pulse 99, respirations 20, blood pressure 117/73. General: This is an ill-appearing, middle-aged male. He is intubated and sedated. Head/eyes/ears/nose/throat: The patient has a nasogastric and an orotracheal tube in place. There is no drainage from the nose or the ears. Neck: No stiffness. Lungs: Clear to auscultation. Cardiovascular: Heart rate is regular. Abdomen: Soft, not tender, but it is protuberant. The patient was draining ascitic fluid from the abdomen, but it is getting less. Neurologic: The patient is sedated. He did not respond to verbal stimuli. Extremities: The patient has bilateral leg edema and peau d'orange skin. In both groins, there are IV catheters. Both sites are not bleeding or purulent. LAB AND X-RAY: The laboratory studies reveal the patient's white count continues to increase today; it is 36,560. Hemoglobin 9.8 and platelet count is 51,000. The blood gases show a pH of 7.3, a PO2 of 68, and a pCO2 of 37. Patient's creatinine is 4.9. GFR is 15. Bilirubin is 18.49, AST is 209. The chest x-ray reveals the patient has bibasilar infiltrates. ASSESSMENT AND PLAN: Patient has pneumonia, peritonitis, and cirrhosis of the liver. I plan to continue with his current antimicrobial agents consisting of micafungin, vancomycin and Zosyn. I think the patient's leukocytosis is mainly due to the high dose of steroids he is on. COMORBIDITIES: Cirrhosis of the liver due to hepatitis C, end-stage renal disease, cigarette smoking, and chronic leg edema. cc: Clemente Vivas MD
[2019-10-21] MEDS: SODIUM CHLORIDE 0.9% INJ SCH (15:38)
--- NOTE | 2019-10-21 16:20 | PROVIDER PROGRESS NOTE ---
Progress Note Dr. Robles Progress Note/Pulmonary and or critical care Subjective: The patient remained intubated. His eyes is opening with blinking at times, but he is unresponsive to verbal stimuli. He is not answering questions or following any commands. He is on SLEDD with phenylephrine drip at 75mcg/min at this time. We do suction at the bedside and patient shows some fair cough effort. We talk with the RN and will start weaning trials with ABG once one hour later. Patients mother at the bedside. Input is appreciated from Dr. Goodwin and other teams on the case. Objective: Vital Signs: 97.7 (Highest temperature 99.7 yesterday 1600), TN 94, RR 19, BP 112/72 and SaO2 100 on AC 18, 40%, 550, 5. I/O -146 ml Physical Examination: General: Intubated. Lying in bed with no acute distress noted. HEENT: Normocephalic. Atraumatic. Mucus pink and moist. ET tube in place. Chest: Even and unlabored. Symmetrical excursion. Mildly diminished breathing sounds bilaterally. CVS: Tachycardia. S1 and S2 appreciated. Abdomen: Distended. Firm. Anasarca. A bag attached to LLQ at the previous paracentesis site with some drainage inside. Decreased bowel sounds noted. Extremities: BLE severe edema with peau dorange skin and chronic stasis change. BUE pitting edema 1+. Neuro: Eyes open with blinking at times, but unresponsive to verbal or tactile stimuli. not answering questions or following commands. Labs and Radiology: Laboratory Results 10/20/19 10/20/19 10/21/19 16:53 20:18 04:45 WBC RBC Hgb Hct MCV MCH MCHC RDW Std Deviation Plt Count MPV Immature Gran % (Auto) Neut % (Auto) Lymph % (Auto) Beauregard % (Auto) Eos % (Auto) Baso % (Auto) Immature Gran # (Auto) Neut # (Auto) Lymph # (Auto) Beauregard # (Auto) Eos # (Auto) Baso # (Auto) PTT (Actin FS) Specimen Type Sample Site pH pCO2 pO2 HCO3 Base Excess Oxyhemoglobin ABG O2 Sat (Calculated) ABG O2 Saturation ABG Carboxyhemoglobin ABG Methemoglobin Aureliano Test A-a O2 Difference Total Hemoglobin Lactate Blood Gas Modality Vent Mode Spontaneous Rate FiO2 % Tidal Volume PEEP Pressure Support CPAP Sodium 139 Potassium 5.3 H Chloride 105 Carbon Dioxide 18 L Anion Gap 16 BUN 72 H Creatinine 4.9 H Estimated GFR/1.73 m2 15 BUN/Creatinine Ratio 15 Glucose 93 POC Glucose 66 L 113 H D Calculated Osmolality 298 Calcium 9.0 Phosphorus 6.4 H Total Bilirubin Direct Bilirubin AST ALT Alkaline Phosphatase Total Protein Albumin 2.5 L Globulin Albumin/Globulin Ratio 10/21/19 10/21/19 10/21/19 04:45 04:45 05:09 WBC 36.56 H RBC 3.30 L Hgb 9.8 L Hct 30.8 L MCV 93.3 MCH 29.7 MCHC 31.8 L RDW Std Deviation 23.1 H Plt Count 51 L MPV 11.1 H Immature Gran % (Auto) 0.7 H Neut % (Auto) 86.5 H Lymph % (Auto) 4.6 L Beauregard % (Auto) 8.1 Eos % (Auto) 0.0 Baso % (Auto) 0.1 Immature Gran # (Auto) 0.26 H Neut # (Auto) 31.64 H Lymph # (Auto) 1.68 Beauregard # (Auto) 2.95 H Eos # (Auto) 0.00 Baso # (Auto) 0.03 PTT (Actin FS) Specimen Type ARTERIAL Sample Site R RADIAL pH 7.30 L pCO2 37 pO2 68 HCO3 19.1 L Base Excess -7.5 L Oxyhemoglobin 95.9 ABG O2 Sat (Calculated) 6.1 L ABG O2 Saturation 99.2 ABG Carboxyhemoglobin 2.40 ABG Methemoglobin 0.9 Aureliano Test YES A-a O2 Difference 171.0 Total Hemoglobin 4.4 L Lactate 4.00 H* Blood Gas Modality VENTILATOR Vent Mode A/C Spontaneous Rate 18 FiO2 % 40.0 Tidal Volume 550 PEEP 5.0 Pressure Support CPAP Sodium Potassium Chloride Carbon Dioxide Anion Gap BUN Creatinine Estimated GFR/1.73 m2 BUN/Creatinine Ratio Glucose POC Glucose Calculated Osmolality Calcium Phosphorus Total Bilirubin 18.49 H Direct Bilirubin > 10.00 H AST 209 H ALT 127 H Alkaline Phosphatase 213 H Total Protein 6.1 L Albumin 2.4 L Globulin 3.7 Albumin/Globulin Ratio 0.6 10/21/19 10/21/19 10/21/19 06:43 06:50 11:46 WBC RBC Hgb Hct MCV MCH MCHC RDW Std Deviation Plt Count MPV Immature Gran % (Auto) Neut % (Auto) Lymph % (Auto) Beauregard % (Auto) Eos % (Auto) Baso % (Auto) Immature Gran # (Auto) Neut # (Auto) Lymph # (Auto) Beauregard # (Auto) Eos # (Auto) Baso # (Auto) PTT (Actin FS) 59.1 H Specimen Type Sample Site pH pCO2 pO2 HCO3 Base Excess Oxyhemoglobin ABG O2 Sat (Calculated) ABG O2 Saturation ABG Carboxyhemoglobin ABG Methemoglobin Aureliano Test A-a O2 Difference Total Hemoglobin Lactate Blood Gas Modality Vent Mode Spontaneous Rate FiO2 % Tidal Volume PEEP Pressure Support CPAP Sodium Potassium Chloride Carbon Dioxide Anion Gap BUN Creatinine Estimated GFR/1.73 m2 BUN/Creatinine Ratio Glucose POC Glucose 95 139 H Calculated Osmolality Calcium Phosphorus Total Bilirubin Direct Bilirubin AST ALT Alkaline Phosphatase Total Protein Albumin Globulin Albumin/Globulin Ratio 10/21/19 10/21/19 14:20 15:47 WBC RBC Hgb Hct MCV MCH MCHC RDW Std Deviation Plt Count MPV Immature Gran % (Auto) Neut % (Auto) Lymph % (Auto) Beauregard % (Auto) Eos % (Auto) Baso % (Auto) Immature Gran # (Auto) Neut # (Auto) Lymph # (Auto) Beauregard # (Auto) Eos # (Auto) Baso # (Auto) PTT (Actin FS) Specimen Type ARTERIAL Sample Site R RADIAL pH 7.34 L pCO2 33 L pO2 96 HCO3 19.4 L Base Excess -7.0 L Oxyhemoglobin 96.4 ABG O2 Sat (Calculated) 18.4 ABG O2 Saturation 100.4 H ABG Carboxyhemoglobin 3.00 H ABG Methemoglobin 1.0 Aureliano Test YES A-a O2 Difference 148.0 Total Hemoglobin 13.5 Lactate 3.90 H Blood Gas Modality VENTILATOR Vent Mode CPAP Spontaneous Rate FiO2 % 40.0 Tidal Volume PEEP Pressure Support 5.00 CPAP 5.0 Sodium Potassium Chloride Carbon Dioxide Anion Gap BUN Creatinine Estimated GFR/1.73 m2 BUN/Creatinine Ratio Glucose POC Glucose 71 Calculated Osmolality Calcium Phosphorus Total Bilirubin Direct Bilirubin AST ALT Alkaline Phosphatase Total Protein Albumin Globulin Albumin/Globulin Ratio Assessment: Acute respiratory failure. Intubated on 10/10/19. Septic shock likely secondary to pneumonia and peritonitis. Pneumonia, bilateral. Sputum culture on 10/10/19 grew Oxacillin-sensitive Staphylococcus Aureus. CXR today shows stable hazy bibasilar infiltrates, nonspecific. Liver cirrhosis due to hepatitis C. Shock liver. Disseminated intravascular coagulation. Acute kidney injury with metabolic acidosis and severe volume overload. On SLED per Dr. Ramirez. DNR 2. 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 Plan: Continue current treatment and supportive care per admitting and other teams on the case. Weaning trials on 10/19/19. We are starting weaning trials now and check ABG once 1 hour later, but we are not planning extubation today. We check Ventilation and titrate to the patients needs for clinical protocols. We will keep closely monitoring patients clinical response. We titrate Sedation with prn morphine and prn Ativan to the patients needs per clinical protocols. We will keep closely monitoring patients clinical response. We titrate Pressors (mariam drip) to the patients needs per clinical protocols. We will keep closely monitoring patients clinical response. Antibiotic (Vancomycin and Zosyn) and antifungal Micafungin per Dr. Vivas, bronchodilators and IV Solu-Cortef. Continue GI and DVT prophylaxis. We discuss patients condition and care plan with family at the bedside and all questions have been answered. Evaluation time in minutes: 35 minutes.
[2019-10-21] MEDS ORDERED: MILK OF MAGNESIA PO ONE (16:51)
[2019-10-21] MEDS ORDERED: VANCOMYCIN 750 MG in NS 250 ML IV ONE (18:30)
--- NOTE | 2019-10-21 20:33 | PROVIDER PROGRESS NOTE ---
Progress Note Subjective: Intubated. No family at bedside. Objective: temperature 97.7, pulse 94, respirations 18, blood pressure 112/72, 02 sat 100% on 40% FiO2 mechanical ventilation. General: Chronically ill appearing -Mexican male in no acute distress. HEENT: normocephalic, atraumatic, conjunctiva pink,pupils equal and non reactive. Mucous membranes moist. Trachea midline. NG tube in place. Skin: Warm. Colostomy bag in place to abdomen at paracentesis site for continuous drainage. Neck: supple, 6cm JVD observed. Cardiovascular: S1S2S4, regular rate and rhythm. No murmur. Respiratory: diminished bases anteriorly bilaterally. Abdomen: slightly firm, distended, nontender. No bowel sounds. :non inspected, ryan in place with no urine. Extremities: generalized pitting edema 3+ greater in the bilateral lower extremities with chronic lymphedema. Left groin central line. Right groin vascath. Neurological: obtunded. Labs: WBC 36.56, hemoglobin 9.8, hematocrit 30.8, platelet count 51, lactate 4.0, sodium 139, potassium 5.3, chloride 105, carbon dioxide 18, BUN 72, creatinine 4.9, albumin 2.4. Intake 1075, output 1221. Impression: Acute kidney injury without recovery. BUN and creatinine are trending up. His blood pressure did not tolerate his intended treatment time for hemodialysis yesterday. They were able to remove 1221 ml before discontinuing. He remains on alec-Synephrine for blood pressure support. We will attempt SLED today with a 3K bath and ultrafiltration as tolerated. Blood pressure. He remains on Alec-Synephrine. Fluid volume. Overloaded. We will attempt SLED with ultrafiltration as tolerated. Anemia. Stable. Thrombocytopenia. Stable without improvement. Electrolytes and acid base balance. Mild Hyperkalemia. We will use a 3K bath with his hemodialysis instead of a 4K. Medication review. Nutrition. Clinimix restarted.
--- NOTE | 2019-10-21 23:51 | GASTROENTEROLOGY PROGRESS NOTE ---
DATE: 10/21/2019 SUBJECTIVE: The patient remains intubated on mechanical ventilation. At the time of my rounds, the patient had just gone through weaning trials. He had some noted dyspnea. He is receiving SLED dialysis. The patient is nonresponsive. OBJECTIVE: Vital signs: Temperature 98.8 degrees, pulse 120, respirations 27, blood pressure 86/55. Generally the patient is intubated, on mechanical ventilation. Per nurse report, he is still not tolerating tube feeding and has not had a bowel movement. He received a dose of Milk of Magnesia yesterday, plus he is also getting lactulose twice a day along with Dulcolax suppository twice a day. LABORATORY DATA: Hematology: WBC 36.56, hemoglobin 9.8, hematocrit 30.8, MCV 93.3, platelets 51,000. Coagulation: PTT 59.1. Chemistry: Sodium 139, potassium 5.3, chloride 105, CO2 is 18, BUN 72, creatinine 4.9, glucose 93, phosphorus 6.4, total bilirubin 18.49, AST 209, ALT 127, alkaline phosphatase 213, total protein 6.1, albumin 2.44. ASSESSMENT AND PLAN: 1. Respiratory failure, on mechanical ventilation. 2. Sepsis shock, acute peritonitis, methicillin-sensitive Staphylococcus aureus pneumonia; on antibiotics and following with Infectious Disease. 3. Acute kidney injury. The patient is on sustained low-efficiency dialysis, following with Nephrology. 4. Disseminated intravascular coagulation, thrombocytopenia; following with Hematology. 5. Elevated liver function test with history of cirrhosis of the liver and hepatitis C. Continue to follow. 6. Nutrition status. The patient is unable to tolerate tube feedings at this time. I believe Clinimix has been started. 7. We will add another dose of Milk of Magnesia today. Continue to follow, and further plans to be made according to his progress. I have discussed this case with Dr. Wheeler. Dictated by JEAN MARIE Chairez for Geronimo Wheeler MD cc: JEAN MARIE Smart MD
[2019-10-22] MEDS: ZOSYN 2.25 GM in NS 50 ML IV SCH ×3 (00:10→15:11)
[2019-10-22] MEDS: NEO-SYNEPHRINE 100 MG in NS 250 ML IV SCH ×2 (01:22→15:12)
[2019-10-22] MEDS: ATROVENT NEB INH SCH ×6 (03:09→23:07)
[2019-10-22] MEDS: XOPENEX NEB INH SCH ×6 (03:09→23:06)
[2019-10-22] MEDS: SOLU-CORTEF IV SCH ×3 (03:55→21:22)
[2019-10-22] MEDS: SODIUM CHLORIDE 0.9% INJ SCH ×2 (03:55→15:11)
[2019-10-22] MEDS: PROTONIX IV SCH ×2 (03:55→15:11)
[2019-10-22 05:44] LABS: ALLEN TEST YES; BE -7.3 mmoll (-3.0-3.0); BLOOD TYPE ARTERIAL; HCO3-(ACT) 19.2 mmoll (20.0-26.0); O2(CT) 14.4 mL/dL (15.0-23.0); O2HB 95.7 % (95.0-99.0); PCO2(98.6) 35 mmHg (35-45); PO2(98.6) 100 mmHg (60-100); SAMPLE BLOOD; SAO2 99.1 % (95.0-100.0); SRATE 18 BPM; THB 10.6 g/dL (11.5-17.4); TVOL 550 mL; pH(98.6) 7.32 (7.35-7.45)
[2019-10-22 05:47] LABS: MODALITY VENTILATOR
[2019-10-22] MEDS: CLINIMIX E 4.25%-5% SOLUTION 1,000 ML IV SCH (06:28)
[2019-10-22 06:40] LABS: BASO# 0.02 X1000 (0.0-0.2); BASO% 0.1 % (0.0-0.8); HEMATOCRIT 30.1 % (42.0-52.0); HEMOGLOBIN 9.5 g/dL (14.0-18.0); IMM GRAN# 0.18 X1000 (0.0-0.04); IMM GRAN% 0.5 % (0.0-0.5); LYMPH# 1.35 X1000 (1.2-3.4); LYMPH% 3.8 % (20.5-51.1); MCH 29.6 PG (27-31); MCHC 31.6 g/dL (33-37); MCV 93.8 FL (81-99); MONO# 2.68 X1000 (0.11-0.59); MONO% 7.6 % (1.7-9.3); NEUT# 30.87 X1000 (1.4-6.5); PLT 49 X1000 (130-400); RBC 3.21 XMIL (4.7-6.1)
[2019-10-22 07:16] LABS: ALBUMIN 2.3 g/dL (3.5-5.0); CALCIUM 8.6 mg/dL (8.8-10.2); CREATININE 3.8 mg/dL (0.7-1.2); PHOSPHORUS 6.2 mg/dL (2.7-4.5); POTASSIUM 5.4 mmol/L (3.5-5.1)
--- NOTE | 2019-10-22 07:58 | Diag Imaging Result Doc PS360 ---
EXAM: CHEST-PORTABLE HISTORY: Pneumonia TECHNIQUE: Single view COMPARISON: 10/21/2019 FINDINGS: There is an endotracheal tube 1 to 2 cm above the roz. A nasogastric tube overlies the esophagus and stomach. The lungs are poorly expanded. There are bilateral infiltrates. These are slightly more prominent than on the prior study. No pleural effusions identified. IMPRESSION: Mild interval worsening Electronically signed by Kiran Lizarraga 10/22/2019 7:55 AM
[2019-10-22 08:04] LABS: NRBC 1 % (0-0); SEGS 88 % (42-75)
[2019-10-22] MEDS: PERIDEX MT SCH ×2 (08:36→21:22)
[2019-10-22] MEDS: LACTULOSE PO SCH ×2 (08:36→21:22)
[2019-10-22] MEDS: DULCOLAX PR SCH ×2 (08:36→21:22)
--- NOTE | 2019-10-22 10:32 | Diag Imaging Result Doc PS360 ---
KUB ABDOMEN - 10/22/2019 INDICATION: distention COMPARISON: 10/20/2019 FINDINGS: There is a stable nasogastric tube in good position. In spite of this, the stomach is rather distended with gas. The reason is unclear. Remainder of the abdomen appears normal. IMPRESSION: Persistent distention of the stomach, reason is unclear. Electronically signed by Ernie Domínguez 10/22/2019 10:29 AM
--- NOTE | 2019-10-22 10:40 | PROGRESS NOTE ---
DATE: 10/22/2019 INTERVAL HISTORY: No acute events overnight. He continues to have leukocytosis, lactic acidosis, and thrombocytopenia. He had a small liquidy material coming out through rectum yesterday with some streaks of blood. SUBJECTIVE: He is intubated. Does not respond. OBJECTIVE: Vital Signs: Temperature 98.4 degrees, pulse 94, respiratory 20, and blood pressure 170/75. He is saturating 98% on mechanical ventilation. General: He does not appear in acute distress. He has scleral icterus, digital clubbing, endotracheal tube, OG tube, urine catheter, bilateral groin femoral venous catheter and a bag attached to his left lower quadrant at the site of ascitic fluid drainage. Lungs: Air entry bilaterally equal. Bilateral rhonchi. No wheeze. Mild crackles in inframammary region. Cardiovascular: S1, S2 normal. No murmur, rub, or gallop. Abdomen: Soft, dull to percussion. No bowel sounds. Extremities: He has lymphedema affecting bilateral lower extremities. He also has several excoriations of the skin in the inner thigh and genitalia. Neurologic: He does not respond to painful stimuli. He has intact corneal reflexes. Intact pupillary reflex on the left. Right pupil is dilated, and does not respond to light. He has good cough. Input and output suggests positive 1 L so far today. LABORATORY: [place] [address], hemoglobin 9.5, and platelet of 49,000. He has a pH suggestive of 7.32. He does have a persistent lactic acidosis of 5. BMP suggestive of BUN of 60, creatinine of 3.8. He was only able to tolerate 1.3 L of dialysis yesterday. No new microbiological data. Chest x-ray suggests mild interval worsening. ASSESSMENT AND PLAN: 1. Acute hypoxic hypercapnic respiratory failure, multifactorial. Continue mechanical ventilation as per Pulmonary recommendation. Considering he is on high doses of pressors, extubation may not be an option. Appreciate Pulmonology recommendation. I will keep him on albuterol ipratropium inhalational, pantoprazole for stress ulcer prophylaxis, chlorhexidine for ventilator associated pneumonia prophylaxis. He is not on chemical anticoagulation due to ongoing coagulopathy. 2. Septic shock from acute peritonitis, MSSA pneumonia. Continue intravenous vancomycin, Zosyn, micafungin as per ID recommendation. His leukocytosis could be related to hydrocortisone use. Keep intravenous phenylephrine with goal more than 65 as mentioned. 3. Acute kidney injury with anuria due to acute tubular necrosis related to septic shock. Continue dialysis as per Nephrology recommendation. He has mild hyperkalemia, which is acceptable. 4. Disseminated intravascular coagulation: Thrombocytopenia due to decompensated liver cirrhosis due to chronic active hepatitis C as well as shock liver. He has been on 4 units of PRBC, 4 units of FFP and 1 unit of platelets so far, I will transfuse as needed. 5. Acute upper gastrointestinal bleed due to decompensated liver cirrhosis without any signs of active bleeding. Continue intravenous pantoprazole IV b.i.d. 6. Nutrition. Continue intravenous Clinimix. Appreciate GI recommendation about starting tube feeds. 7. Acute encephalopathy, global in the setting of toxic metabolic insult. Unfortunately, the patient was significantly acidotic for almost 5 days on initial admission, which could have contributed to his global encephalopathy. 8. Disposition: Mr. Moralez's condition is critical. More than 30 minutes of critical care time was spent in taking care of this patient. I will keep the patient's daughter informed about his clinical course. His prognosis is poor considering for mental status. Family is considering comfort measures only though have not made a final plan. cc: Jean Marie Goodwin MD
[2019-10-22] MEDS ORDERED: ALBUMIN 25% IV ONE (12:07)
[2019-10-22] MEDS ORDERED: NS 2,000 ML MISC PRN (12:16)
[2019-10-22 12:34] LABS: ALLEN TEST YES; BE -5.8 mmoll (-3.0-3.0); BLOOD TYPE ARTERIAL; HCO3-(ACT) 20.4 mmoll (20.0-26.0); METHB 0.8 % (0.0-1.5); O2HB 97.2 % (95.0-99.0); PCO2(98.6) 36 mmHg (35-45); PO2(98.6) 118 mmHg (60-100); SAMPLE BLOOD; SAO2 100.2 % (95.0-100.0); THB 10.8 g/dL (11.5-17.4); pH(98.6) 7.34 (7.35-7.45)
[2019-10-22 12:35] LABS: MODALITY VENTILATOR
--- NOTE | 2019-10-22 12:37 | INFECTIOUS DISEASE PROGRESS NO ---
DATE: 10/22/2019 PRESENT ILLNESS: The patient has pneumonia, peritonitis, and cirrhosis of the liver due to hepatitis C. MEDICATIONS: This is the 12th day of treatment with Zosyn, the 9th day of treatment with micafungin, and the 7th day of treating with IV vancomycin. PHYSICAL EXAMINATION: Vital Signs: Temperature is 98.5 degrees, pulse 101 respirations 23, blood pressure is 104/58. General: This is an ill-appearing middle-aged male. He is intubated. Head/Eyes/Ears/Nose/Throat: The patient has a nasogastric tube in place and an orotracheal tube in place. There is no drainage from his nose or ears, and I did not see any white patches in his mouth. Neck: No stiffness. Lungs: Clear to auscultation. Cardiovascular: Heart rate is regular. Abdomen: Somewhat protuberant, but soft. It does not seem to be tender when I palpate it. There is an ostomy bag where ascitic fluid is draining from the abdomen. Neurologic: The patient is obtunded. He did not respond to verbal stimuli. There is no tremor. Extremities: The patient has bilateral leg edema with peau d'orange skin. In both groin areas, there are IV catheters, and both sites are not bleeding or purulent. LAB AND X-RAY: The patient's most recent x-ray has not been read yet by the radiologist. I looked at it, and I think there may still be some bibasilar infiltrates. The patient's CBC shows a white count of 35,100, hemoglobin 9.5, platelet count 49,000. The patient's blood gases show a pH of 7.32, a PO2 of 100 and a pCO2 of 35. The patient's creatinine is 3.8. GFR is 20. ASSESSMENT AND PLAN: The patient has pneumonia, peritonitis, and cirrhosis of the liver due to hepatitis C. For now, I plan to continue the patient's current antimicrobial agents. I do think that the patient's leukocytosis is mainly due to the dose of steroids he is getting. COMORBIDITIES: 1. Cirrhosis of the liver due to hepatitis C. 2. End-stage renal disease. 3. Cigarette smoking. 4. Chronic leg edema. cc: Clemente Vivas MD
[2019-10-22] MEDS: HALDOL IV PRN (12:44)
[2019-10-22] MEDS: MYCAMINE 100 MG in NS 100 ML IV SCH (14:13)
--- NOTE | 2019-10-22 16:29 | GASTROENTEROLOGY PROGRESS NOTE ---
DATE: 10/22/2019 SUBJECTIVE: Patient remains on mechanical ventilation. He is on Alec-Synephrine. We gave an extra dose of milk of magnesia yesterday. Per nurse report, he had some small mucus bloody material coming from the rectum yesterday. He has not had a significant bowel movement. OBJECTIVE: Vital Signs: Temperature 98.4 degrees, pulse 94, respirations 20, blood pressure 117/75. General: Patient is intubated on mechanical ventilation, nonresponsive on vasopressors. Abdomen: With distention. No bowel sounds noted. NG tube is currently clamped. Abdomen is soft, though. Extremities: With edema noted. LABORATORY DATA: Hematology: WBC 35.10, hemoglobin 9.5, hematocrit 30.1, MCV 93.8. Chemistry: Sodium 137, potassium 5.4, chloride 102, CO2 19, BUN 60, creatinine 3.8, glucose 111, calcium 8.6, phosphorus 6.2. LFTs on 10/21/2019 show total bilirubin 18.49, AST 209, ALT 127, alkaline phosphatase 213. ASSESSMENT AND PLAN: 1. Respiratory failure on mechanical ventilation. 2. Sepsis related to peritonitis, methicillin sensitive Staphylococcus aureus pneumonia continuing on antibiotics. 3. Acute kidney injury. Patient is receiving SLED dialysis. Continue to follow recommendations of Nephrology. 4. Disseminated intravascular coagulation. Patient is following with Hematology. 5. Elevated liver function test. We will continue to follow. 6. Nutritional status. Patient has been started on Clinimix. He was not tolerating tube feedings and is still having residuals. He had an abdominal x-ray that showed continue distention of the stomach. We will try NG tube to low intermittent suction. Continue other management. I have discussed this case with Dr. Mccormack. Dictated by JEAN MARIE Chairez for Geronimo Wheeler MD cc: JEAN MARIE Smart MD
--- NOTE | 2019-10-22 16:56 | PULMONOLOGY PROGRESS NOTE ---
DATE: 10/22/2019 SUBJECTIVE: The patient opens his eyes. He does not follow commands. OBJECTIVE: Vital Signs: The patient has been afebrile for the last 24 hours. Blood pressure 117/75, heart rate 94, respiratory rate 20, oxygen saturation 98% on mechanical ventilation. The patient remains on Alec-Synephrine and has been on Alec-Synephrine for the last 11 days. HEENT: Pupils are equal. Sclerae are icteric. Oropharynx appears dry. Neck: Supple. Chest: Rhonchi bilaterally. Cardiac: S1, S2. Abdomen: Mildly distended with decreased bowel sounds. Extremities: Significant muscle wasting. LABORATORY AND DIAGNOSTIC DATA: Chest x-ray reveals bilateral infiltrates without significant change. KUB reveals persistent distention of the stomach. White blood count 35,000, hemoglobin 9.5, platelet count 49,000. Sodium 137, potassium 3.7, chloride 102, bicarbonate 19, BUN 60, creatinine 3.8. Arterial blood gas, pH 7.32, pCO2 of 35, PO2 of 100, lactate 5.0. IMPRESSION: A 59-year-old with: 1. Acute hypoxemic respiratory failure. 2. Cirrhosis with acute on chronic liver failure. 3. Acute renal failure, on hemodialysis. 4. Shock with ongoing vasopressor requirements. 5. Encephalopathy. PLAN: 1. Continue ventilator weaning trials to see if the patient can be successfully extubated. 2. Continue Clinimix for nutrition. 3. Continue antibiotics per Infectious Disease. 4. Prognosis appears poor given his 12-day hospital stay, multiorgan failure, with ongoing vasopressor requirements. TIME SPENT IN CRITICAL CARE MANAGEMENT: 35 minutes. cc: Keo Duke MD
[2019-10-22] MEDS ORDERED: VANCOMYCIN 750 MG in NS 250 ML IV ONE (17:30)
--- NOTE | 2019-10-22 18:19 | NEPHROLOGY PROGRESS NOTE ---
DATE: 10/22/2019 SUBJECTIVE: He remains unresponsive. OBJECTIVE: Vital Signs: Blood pressure 139/86, heart rate 104, respirations 35, afebrile. General: No acute distress. Skin: Warm and dry. Neck: Veins are not distended. Heart: Regular. Lungs: Equal. Abdomen: Decreased bowel sounds. Extremities: Edema 2+. Clearly improved. IMPRESSION/PLAN: Acute kidney injury. No recovery. SLED again today, and then repeat tomorrow. A 3K bath today. cc: Magdiel Ramirez MD
[2019-10-23] MEDS: CLINIMIX E 4.25%-5% SOLUTION 1,000 ML IV SCH ×2 (00:49→20:06)
[2019-10-23] MEDS: ZOSYN 2.25 GM in NS 50 ML IV SCH ×3 (00:49→18:19)
[2019-10-23] MEDS: ATROVENT NEB INH SCH ×6 (03:13→23:35)
[2019-10-23] MEDS: XOPENEX NEB INH SCH ×6 (03:13→23:35)
[2019-10-23] MEDS: NS NEB INH SCH ×2 (03:14→23:35)
[2019-10-23] MEDS: NEO-SYNEPHRINE 100 MG in NS 250 ML IV SCH ×3 (04:25→23:40)
[2019-10-23 04:35] LABS: ALLEN TEST YES; BE -5.8 mmoll (-3.0-3.0); BLOOD TYPE ARTERIAL; HCO3-(ACT) 20.4 mmoll (20.0-26.0); METHB 1.4 % (0.0-1.5); O2(CT) 13.3 mL/dL (15.0-23.0); O2HB 96.7 % (95.0-99.0); PCO2(98.6) 36 mmHg (35-45); PO2(98.6) 136 mmHg (60-100); SAMPLE BLOOD; SAO2 100.6 % (95.0-100.0); SRATE 18 BPM; THB 9.6 g/dL (11.5-17.4); TVOL 550 mL; pH(98.6) 7.34 (7.35-7.45)
[2019-10-23 04:37] LABS: MODALITY VENTILATOR
[2019-10-23 06:57] LABS: ALB/GLOB RATIO 0.7; ALBUMIN 2.5 g/dL (3.5-5.0); ALKALINE PHOSPHATASE 150 U/L (32-122); DIRECT BILIRUBIN > 10.00 mg/dL (0.00-0.20); GOT 298 U/L (10-34); GPT 166 U/L (10-44); TOTAL PROTEIN 6.3 g/dL (6.3-8.3)
[2019-10-23 07:10] LABS: INR 5.27; PROTIME 50.2 Seconds (11.0-16.0)
[2019-10-23 07:22] LABS: TOTAL BILIRUBIN 20.96 mg/dL (0.20-1.00)
--- NOTE | 2019-10-23 07:25 | Diag Imaging Result Doc PS360 ---
EXAM: CHEST-PORTABLE HISTORY: Pneumonia TECHNIQUE: Single view COMPARISON: 10/22/2019 FINDINGS: No change in the endotracheal tube or nasogastric tube. The lungs are poorly expanded. There are bilateral infiltrates fairly similar to the prior exam. Heart is mildly prominent. No pleural effusions identified. IMPRESSION: No interval improvement Electronically signed by Kiran Lizarraga 10/23/2019 7:23 AM
[2019-10-23 07:26] LABS: ALBUMIN 2.7 g/dL (3.5-5.0); CALCIUM 8.9 mg/dL (8.8-10.2); CREATININE 3.1 mg/dL (0.7-1.2); PHOSPHORUS 6.2 mg/dL (2.7-4.5)
[2019-10-23] MEDS ORDERED: ALBUTEROL 0.5% INH CONC FOR HYPERKALEMIA INH ONE (07:45)
[2019-10-23] MEDS ORDERED: D50W SYRINGE IV ONE (07:46)
[2019-10-23] MEDS ORDERED: HUMALOG IV ONE (07:46)
[2019-10-23] MEDS: PERIDEX MT SCH ×2 (08:45→20:05)
[2019-10-23] MEDS: LACTULOSE PO SCH ×2 (08:45→20:05)
[2019-10-23] MEDS: VITAMIN K 10 MG in NS 50 ML IV SCH (08:45)
[2019-10-23] MEDS: PROTONIX IV SCH ×2 (08:46→20:06)
[2019-10-23] MEDS: SOLU-CORTEF IV SCH ×2 (08:46→20:06)
[2019-10-23] MEDS: DULCOLAX PR SCH ×2 (08:46→20:06)
[2019-10-23] MEDS: SODIUM CHLORIDE 0.9% INJ SCH ×2 (08:46→20:06)
[2019-10-23] MEDS ORDERED: NS 2,000 ML MISC PRN (08:49)
--- NOTE | 2019-10-23 09:29 | PROGRESS NOTE ---
DATE: 10/23/2019 INTERVAL HISTORY: No acute events overnight. He failed spontaneous breathing trial yesterday. SUBJECTIVE: Mr. Moralez is intubated, not responsive. He could not tolerate nasogastric tube feed yesterday with high residuals which were held. VITALS: Temperature 98.1 degrees, pulse 98, respiratory 21, blood pressure 116/68. He is saturating 100% on mechanical ventilation with 40% FiO2. PHYSICAL EXAMINATION: Not in acute distress. He has scleral icterus, digital clubbing, endotracheal tube, OG tube, urine catheter, bilateral groin femoral venous catheter and a bag attached to his left lower quadrant at the site of ascitic fluid drainage.Lungs: Air entry bilaterally equal. No wheezes. He does have bilateral rhonchi with inspiratory crackles. Cardiovascular: S1, S2 normal. No murmur or gallop. Abdomen: Soft, dull to percussion. No bowel sounds. He has generalized anasarca. He has superficial skin abrasion affecting inner thighs, scrotal and penile region. He has intact cough, intact bilateral cornu and intact left pupillary reflex. His right pupil is dilated and does not respond to light. Input and output suggest positive 1000 mL yesterday. LABS: No CBC today. BMP suggestive of hyperkalemia. BUN of 52, creatinine of 3.5. He does have hyperbilirubinemia, which continues to worsen. He does not respond to any painful stimuli or move any of his extremities. ASSESSMENT AND PLAN: 1. Acute hypoxic hypercapnic respiratory failure, multifactorial. Continue mechanical ventilation as per Pulmonology recommendation, albuterol ipratropium inhalation, albuterol ipratropium, bronchodilators, pantoprazole for stress ulcer prophylaxis, chlorhexidine for ventilator associated pneumonia prophylaxis. 2. Septic shock from acute peritonitis, MSSA pneumonia. Continue intravenous vancomycin, Zosyn, micafungin as per Infectious Disease recommendation. His intravenous hydrocortisone frequency has been decreased. Continue phenylephrine with goal more than 65 mmHg. 3. Acute tubular necrosis due to septic shock, requiring intermittent dialysis. Appreciate Nephrology recommendation. I will treat his hyperkalemia with insulin and inhaled high-dose albuterol. 4. Disseminated intravascular coagulation, thrombocytopenia, decompensated liver cirrhosis due to chronic active hepatitis C, as well as shock liver, status post 4 packed red blood cells, 4 FFP and 1 platelet unit transfusion so far. I will monitor his CBC. 5. Acute upper gastrointestinal bleed in the setting of decompensated liver cirrhosis. Continue intravenous pantoprazole IV b.i.d. 6. Nutrition. Continue Clinimix. He has been failing tube feeds. My plan is to begin to challenge him with tube feeds within the 24 hours with concomitant use of metoclopramide. 7. Acute encephalopathy in the setting of toxic metabolic insult. The patient has had profound acidosis for 4 to 5 days since initial admission which could have contributed to his global encephalopathy. 8. Disposition. Mr. Moralez's condition is critical. More than 30 minutes of critical care time was spent taking of him. His prognosis is poor. I will hold goals of care discussion with daughter later today. cc: Jean Marie Goodwin MD
--- NOTE | 2019-10-23 13:42 | PULMONOLOGY PROGRESS NOTE ---
DATE: 10/23/2019 SUBJECTIVE: The patient's eyes are open. He is not following commands. The patient was placed on a spontaneous breathing trial with subsequent increased work of breathing. OBJECTIVE: Vital Signs: The patient has been afebrile over the last 24 hours. Blood pressure 115/69, heart rate 107, respiratory rate 28, oxygen saturation 100%. HEENT: Pupils are equal. Sclerae are icteric. Oropharynx appears clear. Neck: Is supple. Chest: Reveals coarse breath sounds bilaterally. Cardiac exam: S1, S2. Abdomen: Is soft with diminished bowel sounds. Extremities: Without edema. LABORATORIES: Chest x-ray reveals generous cardiac silhouette, increased markings bilaterally, mild gastric distention. Arterial blood gas reveals a pH 7.34, pCO2 of 36, PO2 of 136 with a lactate of 4.8. IMPRESSION: A 59-year-old with 1. Acute hypoxemic respiratory failure. 2. Cirrhosis with acute on chronic liver failure, with continuing to climb bilirubin. 3. Acute renal failure. 4. Hemodynamic shock. 5. Encephalopathy. DISCUSSION: A 59-year-old with problems outlined above. The patient continues to have significant lactic acidosis, increased work of breathing and worsening liver failure. PLAN: 1. Continue mechanical ventilation. 2. Continue current nutrition. 3. Continue hemodialysis/SLED. 4. Continue antibiotics per Infectious Disease. 5. Prognosis appears guarded to poor. Time spent in critical care management, 35 minutes. cc: Keo Duke MD
[2019-10-23] MEDS: MYCAMINE 100 MG in NS 100 ML IV SCH (14:08)
--- NOTE | 2019-10-23 14:44 | NEPHROLOGY PROGRESS NOTE ---
DATE: 10/23/2019 SUBJECTIVE: Eyes are open but unresponsive. OBJECTIVE: Vital Signs: Blood pressure 115/69, heart rate 107, respirations 28, afebrile. Intake 2.4 L. Output 1.7 L. General: No acute distress. Skin: Warm and dry. Neck: Neck veins are not appreciated. Heart: Regular. Lungs: Equal. Extremities: Have 3+ edema. IMPRESSION: Acute kidney injury. No recovery. A 3 K bath using SLED today for 8 hours. Goal of 4 L ultrafiltration. cc: Magdiel Ramirez MD
[2019-10-23] MEDS: D50W SYRINGE IV PRN (16:39)
[2019-10-23] MEDS ORDERED: VANCOMYCIN 750 MG in NS 250 ML IV ONE (19:00)
[2019-10-24] MEDS: ZOSYN 2.25 GM in NS 50 ML IV SCH ×2 (00:33→09:05)
[2019-10-24] MEDS: XOPENEX NEB INH SCH ×6 (03:36→23:31)
[2019-10-24] MEDS: ATROVENT NEB INH SCH ×6 (03:37→23:31)
[2019-10-24] MEDS: NS NEB INH SCH (03:37)
[2019-10-24 04:54] LABS: ALLEN TEST YES; BE -9.5 mmoll (-3.0-3.0); BLOOD TYPE ARTERIAL; HCO3-(ACT) 17.5 mmoll (20.0-26.0); METHB 1.3 % (0.0-1.5); O2(CT) 14.3 mL/dL (15.0-23.0); O2HB 96.1 % (95.0-99.0); PCO2(98.6) 29 mmHg (35-45); PO2(98.6) 117 mmHg (60-100); SAMPLE BLOOD; SAO2 99.8 % (95.0-100.0); SRATE 18 BPM; THB 10.4 g/dL (11.5-17.4); TVOL 550 mL; pH(98.6) 7.33 (7.35-7.45)
[2019-10-24 04:56] LABS: MODALITY VENTILATOR
--- NOTE | 2019-10-24 07:25 | Diag Imaging Result Doc PS360 ---
EXAM: CHEST-PORTABLE 10/24/2019 HISTORY: Pneumonia TECHNIQUE: AP portable at 0531 COMMENT: There is an NG tube with its tip below the diaphragm. There is an endotracheal tube with its tip 2 cm above the roz. There is patchy interstitial opacity bilaterally which was also present previously. This has not changed significantly since 10/21/2019. IMPRESSION: Pulmonary edema and/or pneumonia. Electronically signed by Triston Hurley 10/24/2019 7:23 AM
[2019-10-24 08:28] LABS: BASO# 0.01 X1000 (0.0-0.2); HEMATOCRIT 29.5 % (42.0-52.0); HEMOGLOBIN 9.1 g/dL (14.0-18.0); IMM GRAN# 0.16 X1000 (0.0-0.04); IMM GRAN% 0.5 % (0.0-0.5); LYMPH# 1.35 X1000 (1.2-3.4); LYMPH% 3.8 % (20.5-51.1); MCH 29.6 PG (27-31); MCHC 30.8 g/dL (33-37); MCV 96.1 FL (81-99); MONO# 2.74 X1000 (0.11-0.59); MONO% 7.8 % (1.7-9.3); NEUT% 87.9 % (42.2-75.2); PLT 57 X1000 (130-400); RBC 3.07 XMIL (4.7-6.1); RDW 25.8 % (11.5-14.5); WBC 35.16 X1000 (4.8-10.8)
[2019-10-24 09:03] LABS: INR 7.03; PROTIME 63.3 Seconds (11.0-16.0)
[2019-10-24] MEDS: SOLU-CORTEF IV SCH ×2 (09:03→20:09)
[2019-10-24] MEDS: SODIUM CHLORIDE 0.9% INJ SCH (09:03)
[2019-10-24] MEDS: PROTONIX IV SCH ×2 (09:03→20:09)
[2019-10-24] MEDS: LACTULOSE PO SCH ×2 (09:03→20:09)
[2019-10-24] MEDS: PERIDEX MT SCH ×2 (09:04→20:09)
[2019-10-24] MEDS: DULCOLAX PR SCH ×2 (09:04→20:09)
[2019-10-24] MEDS: VITAMIN K 10 MG in NS 50 ML IV SCH (09:04)
[2019-10-24 09:14] LABS: BANDS 2 % (0-1); MONO 2 % (1-9); NRBC 1 % (0-0); SEGS 96 % (42-75)
[2019-10-24 09:18] LABS: ANISOCYTOSIS 2+; HYPOCHROM 2+; LARGE PLATELETS 1+; POIKILOCYTOSIS 1+; TARGET CELLS 1+
[2019-10-24] MEDS ORDERED: NS 500 ML IV ONE (10:05)
--- NOTE | 2019-10-24 10:09 | INFECTIOUS DISEASE PROGRESS NO ---
DATE: 10/24/2019 PRESENT ILLNESS: The patient has pneumonia, peritonitis, and cirrhosis of the liver secondary to hepatitis C. MEDICATIONS: This is the 14th day of treatment with Zosyn, the 11th day of treatment with micafungin, and the 9th day of treatment with vancomycin. PHYSICAL EXAMINATION: Vital Signs: Temperature is 98.8 degrees, pulse 102, respirations 24, blood pressure 142/73. General: This is an ill-appearing, middle-aged male. He is intubated. HEENT: The patient has an orotracheal tube and a nasogastric tube in place. I did not see any drainage from his nose or ears. Neck: No pain with movement. Lungs: Clear to auscultation. Cardiovascular: Heart rate is regular. Abdomen: Somewhat protuberant, but soft and does not appear to be tender. The patient's area where there is a leak of ascitic fluid has an ostomy on it, and it is draining only a minimal amount of fluid. Extremities: The patient has bilateral leg edema with peau d'orange skin. The patient has, in each groin area, an intravenous catheter. The sites are not bleeding or purulent. Neurologic: The patient seems to be delirious. He does not respond to verbal stimuli, and also when I would try to do a blink reflex, sometimes he blinked his eyes, but other times he did not. IMAGING AND LABORATORY DATA: The patient's CBC shows a white count of 35,160, hemoglobin 9.1, platelet count 57,000. Blood gases show a pH of 7.33, a PO2 of 117, and a pCO2 of 29. Creatinine is 3.1. GFR is 25. AST is 298. Chest x-ray shows stable bilateral opacities. The patient's white blood cell count is elevated. However, since the steroids were decreased in dose, they are staying at roughly the same level and not increasing every day like they had been doing before the last 2 days. ASSESSMENT AND PLAN: The patient has pneumonia, peritonitis, and cirrhosis of the liver. I am going to discontinue all of his current antimicrobial agents, namely micafungin, vancomycin, and Zosyn, and instead I am going to start him on meropenem 1 gram intravenously every 12 hours. COMORBIDITIES: Cirrhosis of the liver due to hepatitis C, end-stage renal disease, cigarette smoking, and chronic leg edema. cc: Clemente Vivas MD
[2019-10-24] MEDS: MERREM 1 GM in NS 50 ML IV SCH ×2 (11:42→20:10)
--- NOTE | 2019-10-24 13:01 | PROGRESS NOTE ---
DATE: 10/24/2019 INTERVAL HISTORY: No acute events overnight. His INR kept on increasing, for which fresh frozen plasma had been ordered. SUBJECTIVE: He is intubated. Does not respond to verbal or painful. OBJECTIVE: Vital Signs: Temperature of 97.5 degrees, pulse 109, respiratory rate 20, blood pressure 123/75, he is saturating 99% on mechanical ventilation. General: He is not in any acute distress. He has endotracheal tube, OG tube, urine catheter, bilateral groin femoral venous catheter, and a bag attached to his left lower quadrant at the site of ascitic fluid drainage. Lungs: Air entry bilaterally equal. No wheezes. He has bilateral rhonchi and crackles. Heart: S1, S2 normal. Tachycardic. No murmur or gallop. Abdomen: Distended, soft, dull to percussion in most of the abdomen. No bowel sounds. Skin: He has generalized anasarca, superficial skin abrasions affecting inner thighs, scrotal and penile region. Neurologic: He has intact cough, intact bilateral corneal reflexes, and intact left pupillary reflex. Right pupil is dilated and does not respond to light. He is not making any urine, and urine output charted is 0 mL. LABORATORY DATA: WBC of 35,000, hemoglobin 9.1, platelets 57,000. His INR is 7.03. PH of 7.33, PO2 of 117, pCO2 of 29, lactic acidosis of 6.17. MICROBIOLOGY: No data. IMAGING: Chest x-ray this morning has pulmonary edema and/or pneumonia. ASSESSMENT AND PLAN: 1. Acute hypoxic hypercapnic respiratory failure, multifactorial. Continue mechanical ventilation, inhaled albuterol/ipratropium nebulization, pantoprazole for stress ulcer prophylaxis, and chlorhexidine for ventilator-associated pneumonia prophylaxis. Appreciate Pulmonology recommendations. 2. Septic shock from acute peritonitis, methicillin-sensitive Staphylococcus aureus pneumonia. Continue intravenous vancomycin, Zosyn, micafungin as per Infectious Disease recommendation. Continue current dose of intravenous hydrocortisone. Continue intravenous phenylephrine for MAP of more than 65 mmHg. 3. Acute tubular necrosis due to septic shock, requiring intermittent hemodialysis. His hyperkalemia resolved yesterday. I will continue to monitor CMP starting tomorrow. 4. Disseminated intravascular coagulation, thrombocytopenia, decompensated liver cirrhosis due to chronic active hepatitis C, as well as shock liver, status post multiple red blood cell, fresh frozen plasma, and platelet transfusion. I will continue intravenous vitamin K, and add 2 units of fresh frozen plasma. 5. Acute upper gastrointestinal bleed. Currently, hemoglobin is stable. Continue intravenous pantoprazole. 6. Nutrition. Continue Clinimix. He has been failing orogastric tube feeding. I will consult dietitian to see if we could start him on total parenteral nutrition in the future. 7. Acute encephalopathy in the setting of toxic metabolic insult due to multiple critical illnesses and profound acidosis for 4 to 5 days since admission, on presentation. Appreciate Neurology recommendation. 8. Disposition. Continue to monitor the patient in the intensive care unit. TIME SPENT: More than 30 minutes of critical care time was spent taking care of this patient. Plan of care discussed with the patient's nurse. I will update the family later. cc: Jean Marie Goodwin MD
--- NOTE | 2019-10-24 14:41 | PULMONOLOGY PROGRESS NOTE ---
DATE: 10/24/2019 SUBJECTIVE: The patient's eyes are open. He does not follow commands. He immediately develops increased work of breathing when placed on a spontaneous breathing trial. OBJECTIVE: Blood pressure 114/72. He remains on Alec-Synephrine. Heart rate 106, respiratory rate 28, oxygen saturation 100%. HEENT: Pupils are equal and reactive. His sclerae are icteric. Oropharynx appears dry. Neck is supple. Chest reveals faint crackles bilaterally. Cardiac Examination: Increased rate, regular rhythm. Abdomen is mildly distended with increased tympany. Extremities reveal 1+ peripheral edema. Laboratories: Chest x-ray reveals patchy bilateral infiltrates. No change from 10/21/2019. White blood count 35,000, hemoglobin 9.1, platelet count 57,000. Arterial blood gas, pH 7.33, pCO2 of 29, PO2 of 117, with a lactate of 6.7. IMPRESSION: A 59-year-old with multiorgan failure. The patient has: 1. Acute hypoxemic respiratory failure. 2. Cirrhosis with acute on chronic liver failure. Bilirubin now greater than 20. 3. Acute renal failure. 4. Hemodynamic shock with ongoing vasopressor requirements. 5. Encephalopathy. 6. Worsening lactic acidosis. PLAN: 1. Continue mechanical ventilation. 2. Continue current nutrition. 3. Continue antibiotics per infectious disease. 4. Hemodialysis as needed for renal failure. 5. Prognosis is poor given his multiorgan dysfunction and ongoing vasopressor requirements 14 days into his admission with worsening liver failure and worsening lactic acidosis. This was discussed with his daughter/stepdaughter outside of the patient's room. Time spent in critical care management, 30+ minutes. cc: Keo Duke MD
[2019-10-24] MEDS: CLINIMIX E 4.25%-5% SOLUTION 1,000 ML IV SCH (16:41)
[2019-10-25] MEDS: XOPENEX NEB INH SCH ×6 (03:40→22:00)
[2019-10-25] MEDS: ATROVENT NEB INH SCH ×6 (03:40→22:00)
[2019-10-25] MEDS: NS NEB INH SCH (03:40)
[2019-10-25 05:03] LABS: ALLEN TEST YES; BE -10.1 mmoll (-3.0-3.0); BLOOD TYPE ARTERIAL; HCO3-(ACT) 17.1 mmoll (20.0-26.0); METHB 0.8 % (0.0-1.5); O2(CT) 13.1 mL/dL (15.0-23.0); PCO2(98.6) 23 mmHg (35-45); PO2(98.6) 171 mmHg (60-100); SAMPLE BLOOD; SAO2 100.9 % (95.0-100.0); SRATE 18 BPM; THB 9.2 g/dL (11.5-17.4); TVOL 550 mL; pH(98.6) 7.38 (7.35-7.45)
[2019-10-25 05:05] LABS: MODALITY VENTILATOR
[2019-10-25] MEDS ORDERED: NS 2,000 ML MISC PRN (06:28)
--- NOTE | 2019-10-25 06:49 | Diag Imaging Result Doc PS360 ---
CHEST-PORTABLE - 10/25/2019 INDICATION: respiratory failure COMPARISON: 10/24/2019 FINDINGS: Support tubes are stable and in good position. Stable hazy interstitial infiltrates in the lung bases compatible with pulmonary edema or pneumonia. Heart size is normal. No pneumothorax or pleural effusion. IMPRESSION: No change from prior. Electronically signed by Ernie Domínguez 10/25/2019 6:47 AM
[2019-10-25 07:16] LABS: INR 2.89; PROTIME 31.1 Seconds (11.0-16.0)
--- NOTE | 2019-10-25 07:19 | INFECTIOUS DISEASE PROGRESS NO ---
DATE: 10/25/2019 PRESENT ILLNESS: The patient has pneumonia, peritonitis, and cirrhosis of the liver secondary to hepatitis C. The patient also is in renal failure. MEDICATIONS: Yesterday, I stopped all of the patient's antibiotics he was on, and instead put him on meropenem. This is day 1 of meropenem. PHYSICAL EXAMINATION: Vital Signs: Temperature is 97.3 degrees, pulse 105, respirations 27, blood pressure 155/78. General: This is an ill-appearing, middle-aged male. HEENT: The patient has an orotracheal tube in place and a nasogastric tube in place. I did not see any white patches in his mouth. Neck: Did not seem to have any pain when I passively moved his neck. Lungs: Clear to auscultation. Cardiovascular: Heart rate is regular. Abdomen: Protuberant. The abdomen has a leak with ascitic fluid coming out of it. There is an ostomy over the leak, which collects the fluid. Extremities: The patient has bilateral leg edema with peau d'orange skin. The patient has, in each groin, an IV catheter. There is no purulence present. Neurologic: The patient seems to be in a delirium. He appeared to be looking at me, but then at other times, he turned his head away. He did not do any of the things I asked him to do, such as closing his eyes or moving his arms or legs. IMAGING AND LABORATORY DATA: The chest x-ray shows bibasilar infiltrates. CBC is pending. Blood gases showed a pH of 7.38, a PO2 of 171, and a pCO2 of 23. There is no BMP for today yet. ASSESSMENT AND PLAN: The patient has pneumonia, peritonitis, cirrhosis of the liver, and also renal failure. My plan is to continue meropenem. COMORBIDITIES: Cirrhosis of the liver due to hepatitis C, end-stage renal disease, cigarette smoking, and chronic leg edema. cc: Clemente Vivas MD
[2019-10-25 08:15] LABS: ALB/GLOB RATIO 0.6; ALBUMIN 2.5 g/dL (3.5-5.0); CALCIUM 9.1 mg/dL (8.8-10.2); CREATININE 3.5 mg/dL (0.7-1.2); TOTAL BILIRUBIN 22.69 mg/dL (0.20-1.00); TOTAL PROTEIN 6.5 g/dL (6.3-8.3)
[2019-10-25] MEDS ORDERED: D50W SYRINGE IV ONE (08:21)
[2019-10-25] MEDS ORDERED: ALBUTEROL 0.5% INH CONC FOR HYPERKALEMIA INH ONE (08:22)
[2019-10-25] MEDS ORDERED: HUMALOG IV ONE (08:22)
[2019-10-25] MEDS ORDERED: CALCIUM GLUCONATE 4.65 MEQ in NS 50 ML IV ONE (08:23)
[2019-10-25 08:27] LABS: POTASSIUM 6.4 mmol/L (3.5-5.1)
[2019-10-25] MEDS: VITAMIN K 10 MG in NS 50 ML IV SCH (08:50)
[2019-10-25] MEDS: PERIDEX MT SCH ×2 (09:51→20:39)
[2019-10-25] MEDS: LACTULOSE PO SCH ×2 (09:51→20:38)
[2019-10-25] MEDS: PROTONIX IV SCH ×2 (09:52→20:39)
[2019-10-25] MEDS: SODIUM CHLORIDE 0.9% INJ SCH (09:52)
[2019-10-25] MEDS: MERREM 1 GM in NS 50 ML IV SCH ×2 (09:52→20:38)
[2019-10-25] MEDS: DULCOLAX PR SCH ×2 (09:52→20:38)
[2019-10-25] MEDS: SOLU-CORTEF IV SCH ×2 (09:52→20:39)
[2019-10-25 10:27] LABS: BASO# 0.02 X1000 (0.0-0.2); BASO% 0.1 % (0.0-0.8); EOS% 0.3 % (0.0-10.0); HEMATOCRIT 33.2 % (42.0-52.0); HEMOGLOBIN 10.7 g/dL (14.0-18.0); IMM GRAN# 0.21 X1000 (0.0-0.04); IMM GRAN% 0.7 % (0.0-0.5); LYMPH# 0.91 X1000 (1.2-3.4); LYMPH% 2.8 % (20.5-51.1); MCH 30.7 PG (27-31); MCHC 32.2 g/dL (33-37); MCV 95.4 FL (81-99); MONO# 2.37 X1000 (0.11-0.59); MONO% 7.4 % (1.7-9.3); NEUT# 28.47 X1000 (1.4-6.5); NEUT% 88.7 % (42.2-75.2); PLT 62 X1000 (130-400); RBC 3.48 XMIL (4.7-6.1); RDW 26.5 % (11.5-14.5); WBC 32.08 X1000 (4.8-10.8)
[2019-10-25 10:59] LABS: BANDS 2 % (0-1); LYMPHS 6 % (21-51); MONO 2 % (1-9); SEGS 90 % (42-75)
[2019-10-25 11:00] LABS: ANISOCYTOSIS 2+; HYPOCHROM 2+; POIKILOCYTOSIS 1+; TARGET CELLS 1+
[2019-10-25] MEDS: NEO-SYNEPHRINE 100 MG in NS 250 ML IV SCH ×2 (11:13→17:17)
[2019-10-25] MEDS ORDERED: LEVOPHED 8 MG in D5 1/2 NS 250 ML IV SCH (12:00)
[2019-10-25] MEDS: D50W SYRINGE IV PRN (12:53)
[2019-10-25] MEDS ORDERED: D50W SYRINGE ONE (12:56)
[2019-10-25] MEDS: CLINIMIX E 4.25%-5% SOLUTION 1,000 ML IV SCH (13:30)
--- NOTE | 2019-10-25 13:41 | HEMO/ONC PROGRESS NOTE ---
DATE: 10/25/2019 SUBJECTIVE: The patient is not showing much change. His eyes are open and he appears to be moving his head, but he does not follow any meaningful commands. He remains intubated in the ICU with a very poor prognosis. OBJECTIVE: Vital Signs: Temperature 97.8 degrees, pulse rate 112, respiratory rate 26, blood pressure 170/78, O2 saturation 100% on mechanical ventilation at 40% oxygen flow, 0/10 pain. PHYSICAL EXAMINATION: General: Patient is in no acute distress, laying flat on mechanical ventilation in the ICU. HEENT: Sclerae are icteric. Oropharynx is dry. Pupils are sluggish. Cardiovascular: Heart rate and rhythm is tachycardic. Normal S1, S2. Respiratory: Diminished breath sounds throughout, crackles bilaterally Gastrointestinal: Abdomen is firm and distended. Extremities: +1 peripheral edema. LABORATORY: WBCs 32.08, hemoglobin 10.7, hematocrit 33.2, platelet count 62,000. PT 31.1, INR 2.8, PTT 51. Potassium 6.4, total bilirubin 22.69, AST 724, ALT 381, alkaline phosphatase 163, albumin 2.5. ASSESSMENT: 1. Acute hypoxemic respiratory failure. 2. Cirrhosis with acute on chronic liver failure. Bilirubin is now greater than 22. 3. Acute renal failure. 4. Hemodynamics shock with ongoing vasopressor requirements. 5. Encephalopathy. 6. Worsening lactic acidosis. 7. Hepatitis C. 8. Thrombocytopenia and disseminated intravascular coagulation. 9. Bilateral lobe pneumonia secondary to oxacillin sensitive Staphylococcus aureus. PLAN: Dr. Vivas has stopped the patient's antibiotics and placed him on meropenem only. He continues to have multiorgan dysfunction and has continued to require vasopressors. He has worsened liver failure. Continue medical management per Infectious Disease, hospitalist and content development manager. Continue to use fresh frozen plasma as needed for platelet count of less than 20,000. Continue to support the patient as needed. We will continue to follow along. Dictated by JEAN MARIE Almanzar for Freddie Galvan MD cc: Freddie Galvan MD [facility]
--- NOTE | 2019-10-25 14:22 | GASTROENTEROLOGY PROGRESS NOTE ---
DATE: 10/25/2019 SUBJECTIVE: Patient continues to be intubated on mechanical ventilation. He is on vasopressor, nonresponsive. He had failed weaning trials previously. Eyes are open, but he is nonresponsive. OBJECTIVE: Vital Signs: Temperature 97.8 degrees, pulse 112, blood pressure 170/78. General: Patient is intubated on mechanical ventilation, nonresponsive. He is on vasopressors. Abdomen: Distended, otherwise soft. Extremities: With bilateral swelling. LABORATORY: WBC 32.08, hemoglobin 10.7, hematocrit 33.2, MCV 95.4. Coagulation: Pro time 31.1, INR 2.89, PTT 51.0. This is after receiving fresh frozen plasma and vitamin K for a high INR of 7.03 on 10/24/2019. Chemistry: Sodium 137, potassium 6.4, chloride 102, CO2 14. BUN 66, creatinine 3.5, total bilirubin 22.69, AST 724, ALT 381, alkaline phosphatase 163. ASSESSMENT AND PLAN: 1. Respiratory failure. Continues to be on mechanical ventilation. Continue management per Pulmonology. 2. Sepsis shock, peritonitis, methicillin-sensitive Staphylococcus aureus pneumonia following with Infectious Disease. I believe his antibiotics have been changed. 3. Acute kidney injury. Patient is following with Nephrology with slow, low efficiency dialysis. 4. Disseminated intravascular coagulation/thrombocytopenia. Following with Hematology. The patient has received fresh frozen plasma and vitamin K. 5. Elevated liver function tests/liver failure. Unfortunately, his liver function has deteriorated. 6. Nutrition: Patient is on Clinimix and has been unable to tolerate tube feedings. Continue to follow. 7. Encephalopathy, multifactorial. Patient is being followed by Neurology. 8. Continue current management. Unfortunately, patient has poor prognosis. We will continue to follow, but unfortunately nothing more Gastroenterology has to offer. I have discussed this case with Dr. Wheeler. Dictated by JEAN MARIE Chairez for Geronimo Wheeler MD cc: JEAN MARIE Smart MD
--- NOTE | 2019-10-25 17:55 | PROGRESS NOTE ---
DATE: 10/25/2019 INTERVAL HISTORY: I had an extensive discussion about his critical condition with his daughter, mother, and multiple family members in the waiting area. I also talked with 1 of his brothers on the phone. No other acute overnight events. He did have hyperkalemia and before I could start him on treatment for that he was started on SLED. SUBJECTIVE: He is intubated, not responding. VITALS: Temperature 97.2 degrees, pulse 99, respiratory rate 21. His recent blood pressure has not been charted properly though he did become hypotensive at the time of SLED and he had maxed out on phenylephrine and I had ordered norepinephrine. PHYSICAL EXAMINATION: General: He has endotracheal tube, OG tube, urine catheter, bilateral groin femoral venous catheter, bag attached to his left lower quadrant at the site of ascitic fluid drainage. Lungs: Air entry bilaterally equal. No wheeze. He has bilateral rhonchi and crackles. Cardiovascular: S1, S2 normal. Tachycardic. No murmur or gallop. Abdomen: Distended soft, dull to percussion. No bowel sounds. He has generalized anasarca. Superficial skin abrasions affecting inner thighs, scrotal and penile region. He has intact cough, intact bilateral corneal reflexes intact. Intact left pupil reflex. Right pupil is dilated and does not respond to light. He is not making any urine. His urine output has been 0 mL. [place]: [place] [address], hemoglobin 10.7, platelets 62,000. He does have a slight decrease in INR to 2.89 from 7, after receiving 2 units of FFP. He does have continued lactic acidosis, pH of 7.38, PO2 of 171. He has hyperkalemia with potassium of 6.4, BUN of 66, creatinine 3.5. Microbiology, no new data. IMAGING: Chest x-ray suggests no change from the prior. ASSESSMENT AND PLAN: 1. Acute hypoxic hypercapnic respiratory failure, multifactorial. Continue mechanical ventilation, inhaled albuterol ipratropium nebulization, pantoprazole for stress ulcer prophylaxis and chlorhexidine for ventilator associated pneumonia prophylaxis. Appreciate Pulmonary recommendation. 2. Septic shock from acute peritonitis, methicillin-sensitive Staphylococcal aureus pneumonia. Continue intravenous meropenem as per Infectious Disease team's recommendation, intravenous phenylephrine and intravenous norepinephrine to maintain MAP more than 65 mmHg. 3. Acute tubular necrosis due to septic shock, requiring intermittent hemodialysis. He had hyperkalemia and he received SLED. I will follow up with repeat potassium. 4. Disseminated intravascular coagulation, thrombocytopenia, decompensated liver cirrhosis due to chronic active hepatitis C as well as shock liver, status post multiple RBC fresh frozen plasma and platelet transfusion. Continue to monitor his coagulation profile. 5. Acute upper gastrointestinal bleed. Currently, hemoglobin is stable. Continue intravenous pantoprazole. He also had blood coming out of his rectum yesterday. Continue to monitor CBC. 6. Nutrition. I will continue him on intravenous Clinimix. Multiple attempts to challenge him with tube feeds have failed. Dietitian is on board and considering total parenteral nutrition based on his course. 7. Acute encephalopathy in the setting of toxic metabolic insult due to multiple critical illnesses and profound acidosis of 4 to 5 days since admission presentation. He remains persistently encephalopathic. Electroencephalogram on October 12 had abnormal generalized low voltage slowing suggestive of diffuse encephalopathy. 8. Disposition. His condition remains critical. More than 30 minutes of critical care time was spent taking care of this patient. I have updated the family about his course. cc: Jean Marie Goodwin MD
--- NOTE | 2019-10-25 18:04 | PROGRESS NOTE ---
DATE: 10/25/2019 GOALS OF CARE DISCUSSION: I sat down with Mr. Moralez's Mother and other family members in the waiting room. The palliative care nurse is also present. The purpose of this meeting was to update them about his medical condition as well as discuss about his prognosis. I allowed Mr. Moralez's brother to ask the questions he had regarding Mr. Moralez's clinical condition and his brother asked me about the current situation of his illness. I explained to him that Mr. Moralez remained in critical condition. Mr. Moralez had multiorgan failure when he was transferred to [facility] about 2 weeks ago and he remains in multiorgan failure today. I explained to him that he is needing ventilatory support, vasopressor support, dialysis support, and repeated transfusions to keep his vital organs functioning. I explained to him that though some of the lab numbers could have improved and some could have become worse since his presentation, the critical nature of his condition did not improve and, in fact, it has become worse, especially the liver function test. I told him that despite aggressive antibiotics and other aggressive measures he continues to require high doses of vasopressor support and intermittent hemodialysis. The patient's daughter asked me if they could transfer him to an outside hospital for further care and I explained to her that I had tried to call [facility] for transfer last week which was unsuccessful because of no bed availability. I also explained to her that today I called [facility]; however, they are out of beds. I also explained to her that in routine situations if he needed any intervention which was not available in this hospital, outside hospitals could consider transfer. However, in my opinion, Mr. Moralez did not need any services which was not available in this hospital. I suggested that they should have discussion among themselves for goals of care and let us know. I also assured them that until we were informed further my goal was to be aggressive in his care and take care of his multiple medical issues. They understood it. About 30 minutes were spent in this process. cc: Jean Marie Goodwin MD
--- NOTE | 2019-10-25 19:26 | PROVIDER PROGRESS NOTE ---
Progress Note Subjective: Intubated. No family at bedside. Objective: temperature temperature 97.8, pulse 106, respirations 26, blood pressure 143/83, O2 sat 100% on 40% FiO2 mechanical ventilation. General: Chronically ill appearing -[place] male in no acute distress. HEENT: normocephalic, atraumatic, conjunctiva pink,pupils equal and non reacti ve. Mucous membranes moist. Trachea midline. NG tube in place. Skin: Warm. Colostomy bag in place to abdomen at paracentesis site for continuous drainage. Neck: supple, JVD observed. Cardiovascular: S1S2S4, regular rate and rhythm. No murmur. Respiratory: diminished bases anteriorly bilaterally. Abdomen: slightly firm, distended, nontender. No bowel sounds. :non inspected, ryan in place with no urine. Extremities: generalized pitting edema 3+ greater in the bilateral lower extremities with chronic lymphedema. Left groin central line. Right groin vascath. Neurological: obtunded. Labs: WBC 32.08, hemoglobin 10.7, hematocrit 33.2, platelet count 62, sodium 137, potassium 6.4, chloride 102, carbon dioxide 14, BUN 66, creatinine 3.5, albumin 2.5. Intake 2385, output 100. Impression: Acute kidney injury without recovery. BUN and creatinine are trending up. He remains on alec-Synephrine for blood pressure support. We will attempt SLED today with a 3K bath and ultrafiltration as tolerated. Blood pressure. He remains on Alec-Synephrine. Fluid volume. Overloaded. We will attempt SLED for 8 hours with ultrafiltration of 4L as tolerated. Anemia. Stable. Thrombocytopenia. Electrolytes and acid base balance. Mild Hyperkalemia. We will use a 3K bath with his hemodialysis instead of a 4K. Medication review.
[2019-10-25] MEDS: ALBUTEROL 0.5% INH CONC FOR HYPERKALEMIA INH SCH (22:00)
[2019-10-25] MEDS: D50W SYRINGE IV SCH (22:05)
[2019-10-25] MEDS: HUMULIN R IV SCH (22:05)
[2019-10-25] MEDS: MORPHINE IV PRN (23:43)
[2019-10-26] MEDS ORDERED: ALBUTEROL 0.5% INH CONC FOR HYPERKALEMIA INH ONE ×5 (01:00→21:00)
[2019-10-26] MEDS ORDERED: HUMULIN R IV ONE ×5 (01:00→21:00)
[2019-10-26] MEDS: ALBUTEROL 0.5% INH CONC FOR HYPERKALEMIA INH SCH (01:20)
[2019-10-26] MEDS: D50W SYRINGE IV SCH (01:57)
[2019-10-26] MEDS: HUMULIN R IV SCH (01:58)
[2019-10-26] MEDS: ATROVENT NEB INH SCH ×6 (04:00→23:54)
[2019-10-26] MEDS: XOPENEX NEB INH SCH ×6 (04:00→23:54)
[2019-10-26 05:27] LABS: ALLEN TEST YES; BE -14.9 mmoll (-3.0-3.0); BLOOD TYPE ARTERIAL; HCO3-(ACT) 13.3 mmoll (20.0-26.0); METHB 0.8 % (0.0-1.5); O2HB 96.1 % (95.0-99.0); PCO2(98.6) 28 mmHg (35-45); PO2(98.6) 91 mmHg (60-100); SAMPLE BLOOD; SAO2 98.8 % (95.0-100.0); SRATE 18 BPM; THB 9.5 g/dL (11.5-17.4); TVOL 550 mL; pH(98.6) 7.22 (7.35-7.45)
[2019-10-26] MEDS: NEO-SYNEPHRINE 100 MG in NS 250 ML IV SCH ×3 (05:59→22:56)
[2019-10-26 06:18] LABS: MODALITY VENTILATOR
[2019-10-26 06:21] LABS: BASO# 0.03 X1000 (0.0-0.2); BASO% 0.1 % (0.0-0.8); IMM GRAN# 0.22 X1000 (0.0-0.04); IMM GRAN% 0.7 % (0.0-0.5); LYMPH# 1.28 X1000 (1.2-3.4); MCH 30.1 PG (27-31); MCV 100.3 FL (81-99); MONO# 3.47 X1000 (0.11-0.59); MONO% 10.7 % (1.7-9.3); NEUT% 84.5 % (42.2-75.2); PLT 64 X1000 (130-400); RBC 2.99 XMIL (4.7-6.1); RDW 26.7 % (11.5-14.5)
[2019-10-26] MEDS ORDERED: NS 2,000 ML MISC PRN (06:52)
--- NOTE | 2019-10-26 07:02 | Diag Imaging Result Doc PS360 ---
EXAM: CHEST-PORTABLE HISTORY: respiratory failure TECHNIQUE: Single view COMPARISON: 10/25/2019 FINDINGS: No change in the endotracheal tube or nasogastric tube. The lungs are poorly expanded. No cardiomegaly. There are bilateral infiltrates. No pleural effusions identified. IMPRESSION: Slight interval worsening in the bilateral infiltrates. Electronically signed by Kiran Lizarraga 10/26/2019 6:48 AM
[2019-10-26 07:03] LABS: ALB/GLOB RATIO 0.6; ALBUMIN 2.3 g/dL (3.5-5.0); CALCIUM 8.7 mg/dL (8.8-10.2); CREATININE 3.2 mg/dL (0.7-1.2)
[2019-10-26 07:04] LABS: INR 4.65; PROTIME 45.5 Seconds (11.0-16.0)
[2019-10-26 07:08] LABS: TOTAL BILIRUBIN 21.94 mg/dL (0.20-1.00)
[2019-10-26 08:29] LABS: POTASSIUM 6.3 mmol/L (3.5-5.1)
[2019-10-26] MEDS ORDERED: D50W SYRINGE IV ONE ×4 (08:45→21:00)
[2019-10-26] MEDS ORDERED: SODIUM BICARBONATE 8.4% IV PUSH ONE ×3 (08:53→16:36)
[2019-10-26] MEDS: PERIDEX MT SCH ×2 (09:15→20:31)
[2019-10-26] MEDS: MERREM 1 GM in NS 50 ML IV SCH ×2 (09:15→20:30)
[2019-10-26] MEDS: LACTULOSE PO SCH ×2 (09:16→20:31)
[2019-10-26] MEDS: DULCOLAX PR SCH ×2 (09:16→20:31)
[2019-10-26] MEDS: PROTONIX IV SCH ×2 (09:17→20:30)
[2019-10-26] MEDS: SOLU-CORTEF IV SCH ×2 (09:17→20:29)
[2019-10-26] MEDS: CLINIMIX E 4.25%-5% SOLUTION 1,000 ML IV SCH (09:18)
[2019-10-26] MEDS: SODIUM CHLORIDE 0.9% INJ SCH (09:18)
--- NOTE | 2019-10-26 09:32 | PULMONOLOGY PROGRESS NOTE ---
DATE: 10/21/2019 SUBJECTIVE: The patient's eyes are open. He does not follow commands. He has moderate increased work of breathing. OBJECTIVE: Vital Signs: Blood pressure 119/62, heart rate 99, oxygen saturation 97%. He remains off vasopressors. HEENT: Pupils are icteric. Oropharynx appears dry. Neck: Supple. Chest: Reveals crackles bilaterally. Cardiac: S1-S2. Abdomen: Soft. Extremities: Without edema. LABORATORIES: White blood count 32,000, hemoglobin 10.7, platelet count 62,000, sodium 137, potassium 6.4, chloride 102, bicarbonate 14. Anion gap 21. BUN 66, creatinine 3.5, bilirubin 23. Arterial blood gas reveals a pH 7.38, pCO2 of 23, PO2 of 171 with a lactate of 6.9. IMPRESSION: A 59-year-old with: 1. Acute hypoxemic respiratory failure. 2. Cirrhosis with [id number] liver failure. 3. Ongoing lactic acidosis. 4. Acute renal failure. 5. Encephalopathy. DISCUSSION: A 59-year-old with problems outlined above. His lactic acidosis in increased work of breathing make him rapidly failed a weaning trial. PLAN: 1. Continue mechanical ventilation. 2. Continue nutrition. 3. Antibiotics per Infectious Disease. 4. Prognosis is poor [*]. Time spent in critical care management 35 minutes. cc: Keo Duke MD
--- NOTE | 2019-10-26 09:51 | INFECTIOUS DISEASE PROGRESS NO ---
DATE: 10/26/2019 PRESENT ILLNESS: The patient has pneumonia, peritonitis, and cirrhosis of the liver secondary to hepatitis C. The patient also has end-stage renal disease. MEDICATIONS: This is day #2 of meropenem. PHYSICAL EXAMINATION: Vital Signs: Temperature is 98.1 degrees, pulse 114, respirations 26, blood pressure 123/71. General: This is an ill-appearing, middle-aged male. He does not appear to be in any acute distress. Head, Eyes, Ears, Nose, and Throat: The patient has an orotracheal tube in place and a nasogastric tube in place. There is no drainage from the nose or ears. Neck: He did not look like he had pain when I moved his neck. Lungs: Clear to auscultation. Cardiovascular: Regular heart rate. Abdomen: Was protuberant. He has an area on the left side of the abdomen that is leaking ascitic fluid, which is being caught with an ostomy bag. Extremities: The patient has bilateral leg edema with peau d'orange skin. Patient has bilateral groin IV catheters as well. There is no bleeding and there is no purulence noted. Neurologic: The patient seems to be in a delirium. He does move his eyes but he does not track with them. He does not respond to verbal stimuli. There is no tremor. LAB AND RADIOLOGY: CBC shows a white count of 32,300, hemoglobin 9, platelet count 64,000. Blood gases show a pH of 7.22, a PO2 of 91, and a pCO2 of 28. Creatinine is 3.2. GFR is 24. ALT is 411. Chest x-ray shows bilateral infiltrates. ASSESSMENT AND PLAN: Patient has pneumonia, peritonitis, cirrhosis of the liver, and renal failure. For now, I am going to continue meropenem and I have also ordered a procalcitonin level. COMORBIDITIES: In this patient include cirrhosis of the liver due to hepatitis C, end-stage renal disease, cigarette smoking, and leg edema. cc: Clemente Vivas MD
[2019-10-26] MEDS ORDERED: VELTASSA PO ONE ×2 (16:31→16:36)
[2019-10-26] MEDS ORDERED: CALCIUM GLUCONATE IV PUSH ONE (16:49)
--- NOTE | 2019-10-26 19:24 | PROVIDER PROGRESS NOTE ---
Progress Note Subjective: Intubated. No family at bedside. Objective: General: Chronically ill appearing -[place] Islander male in no acute distress. HEENT: normocephalic, atraumatic, conjunctiva pink,pupils equal and non reactive. Mucous membranes moist. Trachea midline. NG tube in place. Skin: Warm. Colostomy bag in place to abdomen at paracentesis site for continuous drainage. Neck: supple, JVD observed. Cardiovascular: S1S2S4, regular rate and rhythm. No murmur. Respiratory: diminished bases anteriorly bilaterally. Abdomen: slightly firm, distended, nontender. No bowel sounds. :non inspected, ryan in place with no urine. Extremities: generalized pitting edema 3+ greater in the bilateral lower extremities with chronic lymphedema. Left groin central line. Right groin vascath. Neurological: obtunded. Labs: Impression: Acute kidney injury without recovery. BUN and creatinine are trending up. He remains on mariam-Synephrine for blood pressure support. Family no longer desires TACK COVERER. Fluid volume. Overloaded. Anemia. Stable. Thrombocytopenia. Electrolytes and acid base balance. Hyperkalemia. Again, no treatment.
--- NOTE | 2019-10-26 19:49 | PROVIDER PROGRESS NOTE ---
Progress Note Dr. Robles Progress Note/Pulmonary and or critical care Subjective: The patient remained intubated. He is on Mariam drip at 135 mcg/min. RN at the bedside reports that patient was off pressor yesterday morning, but after SLEDD, he developed shock again; since then Mariam drip has been on and because of this, Patients daughter currently refuses SLEDD. No family at the bedside. Input is appreciated from Dr. Kumar and other teams on the case. Objective: Vital Signs: 100.0 (Highest temperature in last 24 hours), WI 116, RR 27, BP 108/52 and SaO2 93% on AC 18, 40%, 550, 5. I/O -31 ml Physical Examination: General: Intubated. Lying in bed with no acute distress noted. HEENT: Normocephalic. Atraumatic. Mucus pink and moist. ET tube in place. Chest: Ventilated. Tachypnea. Symmetrical excursion. Bilateral rhonchi, inspiratory crackles and decreased air entry on right base. CVS: Tachycardia. S1 and S2 appreciated. Abdomen: Distended. Firm. Anasarca. A ostomy bag attached to LLQ at the previous paracentesis site. Decreased bowel sounds noted. Extremities: BLE severe edema with peau dorange skin and chronic stasis change. BUE pitting edema 1+. Neuro: Eyes open with blinking at times, but unresponsive to verbal or tactile stimuli. not answering questions or following commands. Labs and Radiology: Laboratory Results 10/25/19 10/25/19 10/25/19 16:40 19:30 20:27 WBC RBC Hgb Hct MCV MCH MCHC RDW Std Deviation Plt Count MPV Immature Gran % (Auto) Neut % (Auto) Lymph % (Auto) [place] % (Auto) Eos % (Auto) Baso % (Auto) Immature Gran # (Auto) Neut # (Auto) Lymph # (Auto) [place] # (Auto) Eos # (Auto) Baso # (Auto) PT INR PTT (Actin FS) Specimen Type Sample Site pH pCO2 pO2 HCO3 Base Excess Oxyhemoglobin ABG O2 Sat (Calculated) ABG O2 Saturation ABG Carboxyhemoglobin ABG Methemoglobin Aureliano Test A-a O2 Difference Total Hemoglobin Lactate Blood Gas Modality Spontaneous Rate FiO2 % Tidal Volume PEEP Sodium Potassium 6.2 H* Chloride Carbon Dioxide Anion Gap BUN Creatinine Estimated GFR/1.73 m2 BUN/Creatinine Ratio Glucose POC Glucose 84 73 Calculated Osmolality Calcium Total Bilirubin AST ALT Alkaline Phosphatase Total Protein Albumin Globulin Albumin/Globulin Ratio 10/26/19 10/26/19 10/26/19 04:30 04:30 04:30 WBC 32.30 H RBC 2.99 L Hgb 9.0 L D Hct 30.0 L MCV 100.3 H MCH 30.1 MCHC 30.0 L RDW Std Deviation 26.7 H Plt Count 64 L MPV Not Reportable Immature Gran % (Auto) 0.7 H Neut % (Auto) 84.5 H Lymph % (Auto) 4.0 L [place] % (Auto) 10.7 H Eos % (Auto) 0.0 Baso % (Auto) 0.1 Immature Gran # (Auto) 0.22 H Neut # (Auto) 27.30 H Lymph # (Auto) 1.28 [place] # (Auto) 3.47 H Eos # (Auto) 0.00 Baso # (Auto) 0.03 PT 45.5 H D INR 4.65 D PTT (Actin FS) Specimen Type Sample Site pH pCO2 pO2 HCO3 Base Excess Oxyhemoglobin ABG O2 Sat (Calculated) ABG O2 Saturation ABG Carboxyhemoglobin ABG Methemoglobin Aureliano Test A-a O2 Difference Total Hemoglobin Lactate Blood Gas Modality Spontaneous Rate FiO2 % Tidal Volume PEEP Sodium 136 Potassium 6.3 H* Chloride 98 Carbon Dioxide 12 L Anion Gap 26 BUN 54 H Creatinine 3.2 H Estimated GFR/1.73 m2 24 BUN/Creatinine Ratio 17 Glucose 95 POC Glucose Calculated Osmolality 287 Calcium 8.7 L Total Bilirubin 21.94 H AST 677 H ALT 411 H Alkaline Phosphatase 169 H Total Protein 6.0 L Albumin 2.3 L Globulin 3.7 Albumin/Globulin Ratio 0.6 10/26/19 10/26/19 10/26/19 04:30 04:30 05:38 WBC RBC Hgb Hct MCV MCH MCHC RDW Std Deviation Plt Count MPV Immature Gran % (Auto) Neut % (Auto) Lymph % (Auto) [place] % (Auto) Eos % (Auto) Baso % (Auto) Immature Gran # (Auto) Neut # (Auto) Lymph # (Auto) [place] # (Auto) Eos # (Auto) Baso # (Auto) PT INR PTT (Actin FS) 60.9 H Specimen Type ARTERIAL Sample Site R RADIAL pH 7.22 L pCO2 28 L pO2 91 HCO3 13.3 L Base Excess -14.9 L Oxyhemoglobin 96.1 ABG O2 Sat (Calculated) 13.0 L ABG O2 Saturation 98.8 ABG Carboxyhemoglobin 1.80 ABG Methemoglobin 0.8 Aureliano Test YES A-a O2 Difference 159.0 Total Hemoglobin 9.5 L Lactate 10.30 H* Blood Gas Modality VENTILATOR Spontaneous Rate 18 FiO2 % 40.0 Tidal Volume 550 PEEP 5.0 Sodium Potassium Chloride Carbon Dioxide Anion Gap BUN Creatinine Estimated GFR/1.73 m2 BUN/Creatinine Ratio Glucose POC Glucose 93 Calculated Osmolality Calcium Total Bilirubin AST ALT Alkaline Phosphatase Total Protein Albumin Globulin Albumin/Globulin Ratio 10/26/19 10/26/19 10/26/19 09:25 09:58 11:07 WBC RBC Hgb Hct MCV MCH MCHC RDW Std Deviation Plt Count MPV Immature Gran % (Auto) Neut % (Auto) Lymph % (Auto) [place] % (Auto) Eos % (Auto) Baso % (Auto) Immature Gran # (Auto) Neut # (Auto) Lymph # (Auto) [place] # (Auto) Eos # (Auto) Baso # (Auto) PT INR PTT (Actin FS) Specimen Type Sample Site pH pCO2 pO2 HCO3 Base Excess Oxyhemoglobin ABG O2 Sat (Calculated) ABG O2 Saturation ABG Carboxyhemoglobin ABG Methemoglobin Aureliano Test A-a O2 Difference Total Hemoglobin Lactate Blood Gas Modality Spontaneous Rate FiO2 % Tidal Volume PEEP Sodium Potassium Chloride Carbon Dioxide Anion Gap BUN Creatinine Estimated GFR/1.73 m2 BUN/Creatinine Ratio Glucose POC Glucose 56 L 141 H D 85 Calculated Osmolality Calcium Total Bilirubin AST ALT Alkaline Phosphatase Total Protein Albumin Globulin Albumin/Globulin Ratio 10/26/19 10/26/19 10/26/19 15:22 16:47 17:19 WBC RBC Hgb Hct MCV MCH MCHC RDW Std Deviation Plt Count MPV Immature Gran % (Auto) Neut % (Auto) Lymph % (Auto) [place] % (Auto) Eos % (Auto) Baso % (Auto) Immature Gran # (Auto) Neut # (Auto) Lymph # (Auto) [place] # (Auto) Eos # (Auto) Baso # (Auto) PT INR PTT (Actin FS) Specimen Type Sample Site pH pCO2 pO2 HCO3 Base Excess Oxyhemoglobin ABG O2 Sat (Calculated) ABG O2 Saturation ABG Carboxyhemoglobin ABG Methemoglobin Aureliano Test A-a O2 Difference Total Hemoglobin Lactate Blood Gas Modality Spontaneous Rate FiO2 % Tidal Volume PEEP Sodium Potassium 7.3 H* D Chloride Carbon Dioxide Anion Gap BUN Creatinine Estimated GFR/1.73 m2 BUN/Creatinine Ratio Glucose POC Glucose 34 L D 159 H D Calculated Osmolality Calcium Total Bilirubin AST ALT Alkaline Phosphatase Total Protein Albumin Globulin Albumin/Globulin Ratio Assessment: Acute respiratory failure. Intubated on 10/10/19. Hemodynamic shock. Pneumonia, bilateral. Sputum culture on 10/10/19 grew Oxacillin-sensitive Staphylococcus Aureus. CXR today shows slight interval worsening in the bilateral infiltrates. Liver cirrhosis due to hepatitis C with acute on chronic liver failure. Acute kidney injury with metabolic acidosis and severe volume overload. On SLED per Dr. Ramirez. Encephalopathy. DNR 2. Multiple organ failure with high mortality and morbidity possibility. Plan: Continue current treatment and supportive care per admitting and other teams on the case. Weaning trials on 10/19/19. No weaning trials today as patient currently is on max Mariam drip. We check Ventilation and titrate to the patients needs for clinical protocols. We will keep closely monitoring patients clinical response. We titrate Sedation with prn morphine and prn Ativan to the patients needs per clinical protocols. We will keep closely monitoring patients clinical response. We titrate Pressors (mariam drip) to the patients needs per clinical protocols. We will keep closely monitoring patients clinical response. Antibiotic (Meropenem) per Dr. Vivas, bronchodilators and IV Solu-Cortef. Continue GI and DVT prophylaxis. We will offer the family the option of tracheotomy versus advanced care discussions and possibility of comfort care. Evaluation time in minutes: 34 minutes.
[2019-10-26] MEDS ORDERED: CALCIUM GLUCONATE 1 GM in NS 50 ML IV ONE (21:00)
[2019-10-26] MEDS ORDERED: SODIUM BICARBONATE 8.4% IV ONE (21:00)
[2019-10-26] MEDS: MORPHINE IV PRN (21:16)
--- NOTE | 2019-10-26 21:45 | GASTROENTEROLOGY PROGRESS NOTE ---
DATE: 10/26/2019 SUBJECTIVE: Patient has eyes open, but he does not follow commands. Family was at the bedside. He remains intubated on mechanical ventilation. He is on Alec-Synephrine drip. OBJECTIVE: Vital Signs: Temperature 100 degrees, pulse 116, respirations 27, blood pressure 108/52. General: Patient is intubated on mechanical ventilation, nonresponsive. Respiratory: With some crackles. Abdomen: With distention, otherwise soft. He has a continued ostomy bag over a previous paracentesis site, not much drainage noted in the bag. LABORATORY: Hematology: WBC 32.30, hemoglobin 9.0, hematocrit 30.0, MCV 100.3, platelets 64,000. ProTime 45.5, INR 4.65, PTT 60.9. Chemistry: Sodium 136, potassium 7.3, chloride 98, CO2 12, BUN 54, creatinine 3.2, glucose 95. Total bilirubin 21.94, AST 677, ALT 411, alkaline phosphatase 169. ASSESSMENT AND PLAN: 1. Respiratory failure on mechanical ventilation. 2. Lactic acidosis. 3. Cirrhosis/liver failure. 4. Acute renal failure. Patient has been receiving sustained low-efficiency dialysis. 5. Encephalopathy. PLAN: Continue current management following with other medical team. Liver function tests continue to be elevated. PT/INR elevated. I have discussed this case with Dr. Wheeler. Dictated by JEAN MARIE Chairez for Geronimo Wheeler MD cc: JEAN MARIE Smart MD
[2019-10-27] MEDS ORDERED: D50W SYRINGE IV ONE ×2 (01:00→10:11)
[2019-10-27] MEDS ORDERED: ALBUTEROL 0.5% INH CONC FOR HYPERKALEMIA INH ONE (01:00)
[2019-10-27] MEDS ORDERED: SODIUM BICARBONATE 8.4% IV ONE (01:00)
[2019-10-27] MEDS ORDERED: HUMULIN R IV ONE ×2 (01:00→10:11)
[2019-10-27] MEDS: ATROVENT NEB INH SCH ×3 (03:29→11:06)
[2019-10-27] MEDS: XOPENEX NEB INH SCH ×4 (03:29→15:23)
[2019-10-27] MEDS: CLINIMIX E 4.25%-5% SOLUTION 1,000 ML IV SCH (03:59)
--- NOTE | 2019-10-27 04:39 | PROGRESS NOTE ---
DATE: 10/25/2019 SUBJECTIVE: The patient remains obtunded on the ventilator. He is unresponsive. He is currently on a Alec-Synephrine drip. His daughter decided to discontinue dialysis yesterday. OBJECTIVE: Vital Signs: Temperature 99.9 degrees, blood pressure 105/45, heart rate 111, respirations 27, O2 saturation 97% on the mechanical ventilator. General: This is a chronically ill-appearing, unresponsive male on the mechanical ventilator. Heart: S1, S2 normal. Tachycardic. Lungs: Coarse breath sounds bilaterally. Abdomen: No bowel sounds. Distended. Extremities: 3+ edema bilaterally. : The patient has penile and scrotal edema. Neurologic: The patient is unresponsive. LABS: White blood cell count 32, hemoglobin 9, hematocrit 30, platelets 64,000. Sodium 136, potassium 7.3, chloride 98, CO2 12, BUN 54, creatinine 3.2, glucose 65. ABGs: PH 7.22, pCO2 28, pO2 91, bicarb 13. AST 677, ALT 411, total bilirubin 21. Chest x-ray shows worsening bilateral infiltrates. ASSESSMENT AND PLAN: 1. Acute hypercapnic and hypoxemic respiratory failure. The patient remains ventilator dependent. Continue with further management as directed by the search specialist. 2. Septic shock. The patient's chest x-ray today is worsened. He currently is requiring Alec- Synephrine for blood pressure support. Continue on meropenem as directed by Dr. Vivas. 3. Severe hyperkalemia. After discussion with the patient's daughter, she has decided to discontinue dialysis at this time. We will treat the elevated potassium with medications. 4. Bilateral lobe pneumonia, worse on today's x-ray. Continue with antibiotic therapy as directed by Dr. Vivas. 5. Volume overload. Unchanged. The patient is no longer undergoing dialysis. 6. Acute kidney injury with anuria likely secondary to acute tubular necrosis. Aware. Dialysis was discontinued at the request of the patient's daughter. 7. Global encephalopathy. Unchanged. The patient remains unresponsive. 8. Disseminated intravascular coagulation. We will continue to monitor the patient's coagulation profile and transfuse as necessary. 9. Decompensated alcoholic liver cirrhosis. Aware. 10. Hepatitis C. Aware. 11. Anemia. Stable. 12. Thrombocytopenia. Stable. 13. Anion gap metabolic acidosis. Aware. 14. Constipation. The patient has not had a bowel movement in 9 days. 15. Disposition. The patient remains critically ill with a high risk of mortality. The patient is currently a Do Not Resuscitate level 2. The patient's daughter has decided to discontinue dialysis treatments at this time. She has also stated that she does not want any further pressor support if the patient becomes maxed out on the Alec- Synephrine. We will continue with the current treatment regimen at this time. Palliative Care is following. cc: Stephany Cowan MD MTDD
[2019-10-27 05:11] LABS: ALLEN TEST YES; BE -10.6 mmoll (-3.0-3.0); BLOOD TYPE ARTERIAL; HCO3-(ACT) 16.5 mmoll (20.0-26.0); PCO2(98.6) 36 mmHg (35-45); PO2(98.6) 71 mmHg (60-100); SAMPLE BLOOD; SRATE 18 BPM; TVOL 500 mL; pH(98.6) 7.25 (7.35-7.45)
[2019-10-27 05:12] LABS: MODALITY VENTILATOR
[2019-10-27] MEDS: NEO-SYNEPHRINE 100 MG in NS 250 ML IV SCH ×2 (05:18→11:52)
[2019-10-27] MEDS: D50W SYRINGE IV PRN (06:02)
[2019-10-27 07:00] LABS: BASO# 0.02 X1000 (0.0-0.2); BASO% 0.1 % (0.0-0.8); HEMATOCRIT 26.6 % (42.0-52.0); HEMOGLOBIN 7.9 g/dL (14.0-18.0); IMM GRAN# 0.28 X1000 (0.0-0.04); IMM GRAN% 0.9 % (0.0-0.5); LYMPH# 2.28 X1000 (1.2-3.4); LYMPH% 7.7 % (20.5-51.1); MCH 29.9 PG (27-31); MCHC 29.7 g/dL (33-37); MCV 100.8 FL (81-99); MONO# 3.97 X1000 (0.11-0.59); MONO% 13.4 % (1.7-9.3); NEUT# 23.13 X1000 (1.4-6.5); NEUT% 77.9 % (42.2-75.2); PLT 43 X1000 (130-400); RBC 2.64 XMIL (4.7-6.1); RDW 26.6 % (11.5-14.5); WBC 29.68 X1000 (4.8-10.8)
[2019-10-27 07:11] LABS: INR 7.06; PROTIME 63.5 Seconds (11.0-16.0)
--- NOTE | 2019-10-27 07:17 | Diag Imaging Result Doc PS360 ---
EXAM: CHEST-PORTABLE 10/27/2019 HISTORY: respiratory failure TECHNIQUE: AP portable at [id number] COMMENT: There is an endotracheal tube with its tip slightly below the thoracic inlet and an NG tube which passes below the diaphragm. There is increased interstitial opacity bilaterally. This was also the case on 10/26/2019. IMPRESSION: Interstitial pulmonary edema. Electronically signed by Triston Hurley 10/27/2019 7:15 AM
[2019-10-27 07:20] LABS: ALB/GLOB RATIO 0.5; ALBUMIN 1.9 g/dL (3.5-5.0); CALCIUM 7.4 mg/dL (8.8-10.2); CREATININE 4.2 mg/dL (0.7-1.2); TOTAL BILIRUBIN 18.41 mg/dL (0.20-1.00); TOTAL PROTEIN 5.5 g/dL (6.3-8.3)
[2019-10-27 07:29] LABS: POTASSIUM 7.7 mmol/L (3.5-5.1)
[2019-10-27 07:49] LABS: ANISOCYTOSIS 1+; BANDS 2 % (0-1); HYPOCHROM 1+; LYMPHS 2 % (21-51); MONO 6 % (1-9); NRBC 1 % (0-0); POIKILOCYTOSIS 1+; SEGS 90 % (42-75)
[2019-10-27 07:50] LABS: SCHISTOCYTES OCCASIONAL; TARGET CELLS OCCASIONAL
--- NOTE | 2019-10-27 08:23 | PROGRESS NOTE ---
DATE: 10/27/2019 SUBJECTIVE: The patient is currently unresponsive on the ventilator. He is currently on Alec- Synephrine. The patient was noted to have a critical potassium last night, and even this morning despite treatment. The patient is now having tachyarrhythmias. OBJECTIVE: Vital Signs: Temperature 99.3 degrees, blood pressure 113/53, heart rate 102, respirations 24, O2 saturation 99% on mechanical ventilator. Intake 2.3 L, 0 urine output. General: This is a chronically ill-appearing, elderly male currently unresponsive on the ventilator. Heart: S1, S2 normal. Tachycardic. Lungs: Coarse breath sounds bilaterally. Abdomen: No bowel sounds, distended. : Penile and scrotal edema. Extremities: 3+ edema to the legs. Neurologic: The patient is unresponsive. LABS: White blood cell count 29, hemoglobin 7.9, hematocrit 26, platelets 43. INR 7. ABG: A pH is 7.25, pCO2 36, PO2 71, bicarbonate 16, lactate 9.5. Sodium 137, potassium 7.7, chloride 100, CO2 16. BUN 74, creatinine 4.2, glucose 63. Total bilirubin 18, AST 880, ALT 426, alkaline phosphatase 166. X-RAYS: Chest x-ray reveals interstitial edema. ASSESSMENT AND PLAN: 1. Acute hypercapnic and hypoxemic respiratory failure. The patient remains ventilator- dependent. Continue with further management as directed by the sales executive insurance. 2. Septic shock. Continue with Alec-Synephrine and broad-spectrum antibiotic therapy. Dr. Vivas is following. 3. Refractory hyperkalemia. The patient's potassium remains elevated despite multiple doses of medication to treat it. I had a discussion with the patient's daughter and she has requested that dialysis be resumed. I have notified of the family's wishes. 4. Tachyarrhythmia. Multifactorial. Likely secondary to the elevated potassium. Will treat symptomatically. 5. Bilateral lobe pneumonia. Continue with broad-spectrum antibiotics and ventilatory support. 6. Volume overload. Unchanged. The patient is no longer undergoing dialysis. 7. Global encephalopathy. Unchanged. The patient remains unresponsive. 8. Acute kidney injury with anuria, likely secondary to acute tubular necrosis due to multiorgan failure. Aware 9. Disseminated intravascular coagulation. Aware. 10. Decompensated alcoholic liver cirrhosis. Aware. 11. Hepatitis C. Aware. 12. Thrombocytopenia. Unchanged. Continue to monitor. The patient has no active bleeding at this time. 13. Anion gap metabolic acidosis, aware. 14. Constipation. The patient has not had a bowel movement in 10 days despite multiple laxatives. 15. Disposition: The patient remains critically ill with a high risk of mortality. The patient is a do not resuscitate level 2. I had a discussion with the patient's daughter, mother, and brother and they all stated that they want to resume dialysis despite the patient's continued deterioration. I also discussed the case with . cc: Stephany Cowan MD [facility]
[2019-10-27] MEDS ORDERED: VITAMIN K 10 MG in NS 50 ML IV ONE (08:30)
[2019-10-27] MEDS: LACTULOSE PO SCH (09:45)
[2019-10-27] MEDS: MERREM 1 GM in NS 50 ML IV SCH (09:45)
[2019-10-27] MEDS: SOLU-CORTEF IV SCH (09:45)
[2019-10-27] MEDS: PERIDEX MT SCH (09:45)
[2019-10-27] MEDS: DULCOLAX PR SCH (09:45)
[2019-10-27] MEDS ORDERED: CARDIZEM IV ONE ×2 (09:54→10:32)
[2019-10-27] MEDS: PROTONIX IV SCH (10:03)
[2019-10-27] MEDS: SODIUM CHLORIDE 0.9% INJ SCH (10:03)
--- NOTE | 2019-10-27 10:06 | INFECTIOUS DISEASE PROGRESS NO ---
DATE: 10/27/2019 PRESENT ILLNESS: The patient has pneumonia, peritonitis, and cirrhosis of the liver secondary to hepatitis C. He also has end-stage renal disease. MEDICATIONS: This is day 3 of treatment with meropenem. PHYSICAL EXAMINATION: Vital Signs: Temperature is 99.3 degrees, pulse is 102, respiratory rate is 24, blood pressure is 113/53. General: This is an ill-appearing, middle-aged male. He is comatose state, but he does not appear to be in any acute distress. Head/Eyes/Ears/Nose/Throat: The patient has an orotracheal tube in place and a nasogastric tube in place. There is no drainage from the nose or the ears. Neck: No stiffness. Lungs: There were bilateral rhonchi today. Cardiovascular: Heart rate is regular. Abdomen: Protuberant. There is still some drainage coming from the left side of the abdomen of ascitic fluid, which is being caught by an ostomy placed over where the fluid is coming from. The patient also has bilateral groin IV catheters. There is no bleeding, and I did not see any purulent drainage. Neurologic: The patient appears to be comatose, so he does not respond to verbal stimuli. He does not have a tremor. LAB AND X-RAY: The patient's CBC is pending. Blood gases show a pH of 7.25, a PO2 of 71 a pCO2 of 36. Creatinine is 3.2, GFR is 24. AST is 677. Chest x-ray has not been read by the radiologist, but when I looked at it, I thought there were bilateral infiltrates. ASSESSMENT AND PLAN: The patient has pneumonia, peritonitis, cirrhosis of the liver, renal failure. For now, I am going to continue meropenem. A procalcitonin level was ordered yesterday, and the results are not yet back. cc: Clemente Vivas MD
[2019-10-27] MEDS ORDERED: CARDIZEM 100 MG/NS 100 MG/100 ML IVPB ONE (10:38)
[2019-10-27] MEDS ORDERED: CARDIZEM 100 MG/NS 100 MG/100 ML IVPB IV SCH (10:45)
[2019-10-27] MEDS ORDERED: LEVOPHED 8 MG in D5 1/2 NS 250 ML IV SCH (12:00)
--- NOTE | 2019-10-27 15:09 | PROVIDER PROGRESS NOTE ---
Progress Note Dr. Robles Progress Note/Pulmonary and or critical care Subjective: The patient remained intubated. He is on Mariam drip at 360 mcg/min. His heart rate is unstable at this time. It changes from PVC to asystole and then VF. RN is at the bedside. No family at the bedside. Input is appreciated from Dr. Kumar and other teams on the case. Objective: Vital Signs: 98.8 (low fever in last 24 hours), NC 104, RR 23, BP 108/54 and SaO2 93% on AC 18, 40%, 550, 5. I/O +2156 ml Physical Examination: General: Intubated. Lying in bed with no acute distress noted. HEENT: Normocephalic. Atraumatic. Mucus pink and moist. ET tube in place. Chest: Ventilated. Tachypnea. Symmetrical excursion. Decreased air entry bilaterally. CVS: Tachycardia. S1 and S2 appreciated. Abdomen: Distended. Firm. Anasarca. A ostomy bag attached to LLQ at the previous paracentesis site. Decreased bowel sounds noted. Extremities: BLE severe edema with peau dorange skin and chronic stasis change. BUE pitting edema 1-2+. Neuro: Eyes open without blinking at times, but unresponsive to verbal or tactile stimuli. not answering questions or following commands. Labs and Radiology: Laboratory Results 10/26/19 10/26/19 10/26/19 15:22 16:47 17:19 WBC RBC Hgb Hct MCV MCH MCHC RDW Std Deviation Plt Count MPV Immature Gran % (Auto) Neut % (Auto) Lymph % (Auto) Platte % (Auto) Eos % (Auto) Baso % (Auto) Immature Gran # (Auto) Neut # (Auto) Lymph # (Auto) Platte # (Auto) Eos # (Auto) Baso # (Auto) Segmented Neutrophils Band Neutrophils Lymphocytes Monocytes Nucleated RBCs Hypochromia Poikilocytosis Anisocytosis Target Cells Schistocytes PT INR Specimen Type Sample Site pH pCO2 pO2 HCO3 Base Excess Aureliano Test A-a O2 Difference Lactate Blood Gas Modality Vent Mode Spontaneous Rate FiO2 % Tidal Volume PEEP Sodium Potassium 7.3 H* D Chloride Carbon Dioxide Anion Gap BUN Creatinine Estimated GFR/1.73 m2 BUN/Creatinine Ratio Glucose POC Glucose 34 L D 159 H D Calculated Osmolality Calcium Total Bilirubin AST ALT Alkaline Phosphatase Total Protein Albumin Globulin Albumin/Globulin Ratio 10/26/19 10/26/19 10/27/19 20:21 20:21 00:40 WBC RBC Hgb Hct MCV MCH MCHC RDW Std Deviation Plt Count MPV Immature Gran % (Auto) Neut % (Auto) Lymph % (Auto) Platte % (Auto) Eos % (Auto) Baso % (Auto) Immature Gran # (Auto) Neut # (Auto) Lymph # (Auto) Platte # (Auto) Eos # (Auto) Baso # (Auto) Segmented Neutrophils Band Neutrophils Lymphocytes Monocytes Nucleated RBCs Hypochromia Poikilocytosis Anisocytosis Target Cells Schistocytes PT INR Specimen Type Sample Site pH pCO2 pO2 HCO3 Base Excess Aureliano Test A-a O2 Difference Lactate Blood Gas Modality Vent Mode Spontaneous Rate FiO2 % Tidal Volume PEEP Sodium Potassium 7.5 H* Chloride Carbon Dioxide Anion Gap BUN Creatinine Estimated GFR/1.73 m2 BUN/Creatinine Ratio Glucose POC Glucose 65 L D 67 L Calculated Osmolality Calcium Total Bilirubin AST ALT Alkaline Phosphatase Total Protein Albumin Globulin Albumin/Globulin Ratio 10/27/19 10/27/19 10/27/19 05:00 05:00 05:00 WBC 29.68 H RBC 2.64 L Hgb 7.9 L Hct 26.6 L MCV 100.8 H MCH 29.9 MCHC 29.7 L RDW Std Deviation 26.6 H Plt Count 43 L D MPV Not Reportable Immature Gran % (Auto) 0.9 H Neut % (Auto) 77.9 H Lymph % (Auto) 7.7 L Platte % (Auto) 13.4 H Eos % (Auto) 0.0 Baso % (Auto) 0.1 Immature Gran # (Auto) 0.28 H Neut # (Auto) 23.13 H Lymph # (Auto) 2.28 Platte # (Auto) 3.97 H Eos # (Auto) 0.00 Baso # (Auto) 0.02 Segmented Neutrophils 90 H Band Neutrophils 2 H Lymphocytes 2 L Monocytes 6 Nucleated RBCs 1 H Hypochromia 1+ Poikilocytosis 1+ Anisocytosis 1+ Target Cells OCCASIONAL Schistocytes OCCASIONAL PT 63.5 H D INR 7.06 H* D Specimen Type Sample Site pH pCO2 pO2 HCO3 Base Excess Aureliano Test A-a O2 Difference Lactate Blood Gas Modality Vent Mode Spontaneous Rate FiO2 % Tidal Volume PEEP Sodium 137 Potassium 7.7 H* Chloride 100 Carbon Dioxide 16 L Anion Gap 21 BUN 74 H Creatinine 4.2 H Estimated GFR/1.73 m2 18 BUN/Creatinine Ratio 18 Glucose 63 L POC Glucose Calculated Osmolality 294 Calcium 7.4 L Total Bilirubin 18.41 H AST 880 H ALT 423 H Alkaline Phosphatase 166 H Total Protein 5.5 L Albumin 1.9 L Globulin 3.6 Albumin/Globulin Ratio 0.5 10/27/19 10/27/19 10/27/19 05:03 05:53 06:32 WBC RBC Hgb Hct MCV MCH MCHC RDW Std Deviation Plt Count MPV Immature Gran % (Auto) Neut % (Auto) Lymph % (Auto) Platte % (Auto) Eos % (Auto) Baso % (Auto) Immature Gran # (Auto) Neut # (Auto) Lymph # (Auto) Platte # (Auto) Eos # (Auto) Baso # (Auto) Segmented Neutrophils Band Neutrophils Lymphocytes Monocytes Nucleated RBCs Hypochromia Poikilocytosis Anisocytosis Target Cells Schistocytes PT INR Specimen Type ARTERIAL Sample Site R RADIAL pH 7.25 L pCO2 36 pO2 71 HCO3 16.5 L Base Excess -10.6 L Aureliano Test YES A-a O2 Difference 169.0 Lactate 9.50 H* Blood Gas Modality VENTILATOR Vent Mode A/C Spontaneous Rate 18 FiO2 % 40.0 Tidal Volume 500 PEEP 5.0 Sodium Potassium Chloride Carbon Dioxide Anion Gap BUN Creatinine Estimated GFR/1.73 m2 BUN/Creatinine Ratio Glucose POC Glucose 58 L 134 H D Calculated Osmolality Calcium Total Bilirubin AST ALT Alkaline Phosphatase Total Protein Albumin Globulin Albumin/Globulin Ratio Assessment: Acute respiratory failure. Intubated on 10/10/19. Hemodynamic shock. Pneumonia, bilateral. Sputum culture on 10/10/19 grew Oxacillin-sensitive Staphylococcus Aureus. CXR today shows interstitial pulmonary edema. Liver cirrhosis due to hepatitis C with acute on chronic liver failure. Acute kidney injury with metabolic acidosis and severe volume overload. On SLED per Dr. Ramirez. Encephalopathy. DNR 2. Prognosis is poor with multiple organ failure. Plan: Continue current treatment and supportive care per admitting and other teams on the case. Weaning trials on 10/19/19. No weaning trials today as patient currently is on max Mariam drip and unstable cardiac status. We check Ventilation and titrate to the patients needs for clinical protocols. We will keep closely monitoring patients clinical response. We titrate Sedation with prn morphine and prn Ativan to the patients needs per clinical protocols. We will keep closely monitoring patients clinical response. We titrate Pressors (mariam drip) to the patients needs per clinical protocols. We will keep closely monitoring patients clinical response. Antibiotic (Meropenem) per Dr. Vivas, bronchodilators and IV Solu-Cortef. Continue GI and DVT prophylaxis. Evaluation time in minutes: 33 minutes.
[2019-10-27 15:13] VITALS: BP 89/45
--- NOTE | 2019-10-27 20:30 | GASTROENTEROLOGY PROGRESS NOTE ---
DATE: 10/27/2019 SUBJECTIVE: At the time of my visit, nurse states he has had periods of asystole and ventricular fibrillation. He remains intubated on mechanical ventilation. He is on Alec-Synephrine drip. He also has a Cardizem drip. Patient is nonresponsive. OBJECTIVE: Vital Signs: Temperature 94.8 degrees, pulse 96, respirations 25, blood pressure 89/45. General: Patient is unresponsive. He is on mechanical ventilation. He is having arrhythmias. LABORATORY: Hematology: WBC 29.68, hemoglobin 7.9, hematocrit 26.6, MCV 100.8, platelets 43,000. Coagulation: Protime 63.5, INR 7.06. Chemistry: Sodium 137, potassium 7.7, CO2 16, BUN 74, creatinine 4.2, glucose 63, total bilirubin 18.41, AST 880, ALT 423, alkaline phosphatase 166, albumin 1.9. ASSESSMENT AND PLAN: 1. Acute respiratory failure. Patient remains on mechanical ventilation. 2. Sepsis. The patient is on vasopressors and antibiotics, following with Dr. Vivas. 3. Hyperkalemia. Despite medications to treat, patient's potassium continues to rise. 4. Encephalopathy. 5. Acute kidney injury. The patient has received dialysis. 6. Disseminated intravascular coagulation. PT/INR continue to worsen. 7. Alcoholic liver disease/liver failure. 8. Hepatitis C. 9. Tachyarrhythmia. Patient has periods of asystole, ventricular fibrillation. Unfortunately, patient's status continues to worsen. Palliative Care has talked with the family. Unfortunately, there is nothing more GI can recommend. We will continue to follow and further plans will be made as needed. I have discussed this case with Dr. Swan. Dictated by JEAN MARIE Chairez for Geronimo Wheeler MD cc: JEAN MARIE Smart MD
--- NOTE | 2019-10-27 21:50 | PROVIDER PROGRESS NOTE ---
Progress Note Subjective: Intubated and not following commands. No family at bedside. Objective: temperature 99.3, pulse 102, respirations 24, blood pressure 113/53, 02 sat 99% on 40% FiO2 mechanical ventilation. General: Chronically ill appearing -Ivorian male in no acute distress. HEENT: normocephalic, atraumatic, conjunctiva pink,pupils equal and non reactive. Mucous membranes moist. Trachea midline. NG tube in place. Skin: Warm. Colostomy bag in place to abdomen at paracentesis site for continuous drainage. Neck: supple, JVD observed. Cardiovascular: S1S2S4,bounding, tachycardic rate and rhythm. No murmur. Respiratory: coarse rhonchi anteriorly bilaterally. Abdomen: slightly firm, distended, nontender. No bowel sounds. :non inspected, ryan in place with no urine. Extremities: generalized pitting edema 3+ greater in the bilateral lower extremities with chronic lymphedema. Right groin vascath. Neurological: obtunded. Labs: WBC 29.68, hemoglobin 7.9, hematocrit 26.6, platelet count 43, lactate 9.5, sodium 137, potassium 7.7, crown hundred, carbon dioxide 16, BUN 74, creatinine 4.2, albumin 1.9. Intake 2331, output 175. Impression: Acute kidney injury without recovery. BUN and creatinine are trending up. Family has requested to stop dialysis and has made him a DNR level 2. At this time, we will sign off and be available as needed.
--- NOTE | 2019-10-29 18:06 | DISCHARGE SUMMARY ---
ADMISSION DATE: 10/10/2019 DISCHARGE DATE: 10/27/2019 FINAL DISCHARGE DIAGNOSES: 1. Acute hypercapnic and hypoxemic respiratory failure. 2. Septic shock. 3. Refractory hyperkalemia. 4. Tachyarrhythmia secondary to hyperkalemia. 5. Bilateral lobe pneumonia. 6. Volume overload. 7. Global encephalopathy. 8. Acute kidney injury with anuria requiring dialysis. 9. Disseminated intravascular coagulation. 10. Decompensated alcoholic liver cirrhosis. 11. Hepatitis C. 12. Thrombocytopenia. 13. Anion gap metabolic acidosis. 14. Constipation. 15. Shock liver. 16. Gastrointestinal bleed. CONSULTATIONS: 1. Pulmonary consultation with Dr. Robles. 2. GI consultation with Dr. Wheeler. 3. ID consultation with Dr. Vivas. 4. Nephrology consultation with Dr. Ramirez. 5. Hematology consultation with Dr. Galvan. General Surgery consultation with Dr. Parsons. PROCEDURES: 1. Left femoral vein central venous line placement performed on 10/10/2019. 2. Paracentesis performed on 10/11/2019. 3. Ultrasound-guided right common femoral Vas-Cath placement performed on 10/12/2019. HOSPITAL COURSE: Mr. Moralez is a 59-year-old male with a history of hepatitis C, alcoholic liver cirrhosis, gout, hypertension, and psoriasis, who presented to the ER with a suspected GI bleed and septic shock. The patient was noted to be in acute respiratory failure and intubated and placed on the ventilator and admitted to the ICU. The patient was initially seen at [facility] and transferred to [facility] ICU. Blood cultures and sputum cultures were obtained, and the patient was started on broad-spectrum antibiotics. GI was consulted due to the concern about a GI bleed and given the patient's decompensated liver cirrhosis. Pressor support was started in addition to the broad-spectrum antibiotics. Nephrology was consulted due to the patient's renal failure and persistent hyperkalemia. ID was also consulted as well as Pulmonary Medicine. Over the course of the hospitalization, dialysis was eventually initiated given the patient's refractory hyperkalemia, severe acid-base disturbance and anuria. The patient was placed on SLED. During the patient's SLED sessions, he did have periods of hemodynamic instability requiring Levophed and Alec-Synephrine to be used together to maintain hemodynamic balance. The patient also developed DIC and was transfused with FFP. Hematology was also consulted to assist with management. Despite aggressive therapy, the patient continued to deteriorate. This was discussed at great length with the patient's family. Palliative Care was also consulted to assist with goals of care. Ultimately, the patient's family decided to make the patient a DNR level 2. The patient continued to decline, and the family decided to discontinue dialysis. On 10/27/2019, the patient was pronounced . Time of was noted to be 12:33 p.m. At the time, the patient's pupils were noted to be fixed and dilated with no corneal reflex. No heart sounds were auscultated. There were no breath sounds auscultated. The patient's family was notified of the patient's . cc: Stephany Cowan MD [facility]
== END 2019-10-27 12:33 | disposition expired | DRG 870 ==
LOC: P.ED 08:53 → ICU 08:54 → SUATTDRO 08:54 → ICU 16:22
PROVIDERS: ATTEND Internal Medicine